=== PATIENT | female | born 1965 | race Caucasian/White ===

== ENCOUNTER 2024-07-05 03:55 | Emergency (ER) | payer OTHER ==
--- OUTSIDE RECORDS SUMMARY | 2024-07-05 04:18 | XMS REPORT | Continuity of Care Document ---
Author Name Unknown Address [address] [facility] [place] [address] [facility] Address [address] [facility] [place] [address] Care Team Providers Care Digital Account Supervisor Name Role Phone JUSTINA MELENDEZ Primary Care Physician Di Lorenzana Anavella Attending Cli nician Unavailable [id number] Attending Clinician Unavailable RAFAEL MORALES Attending Clinician Unavailable RAFAEL MORALES Attending Clinician Unavailable AN LATHAM JR Attending Clinician Unavaila DENISE Li Attending Clinician Unavailable DENISE DUKE Attending Clinician Unavailable JESS DOAN Attending Clinician Unavailable JEFF BERNARD Attending Clinician Unavail able JEFF BERNARD Attending Clinician Unavail able JUSTINA MELENDEZ Attending Clinician Unavailab le NORA, OGECHUKWU Attending Clinician Unavailab sandra Veras [facility], [place] Attending Clinician Henry Doan MD, Jess Attending Clinician [phone] Nora BARRIOS, Justina Attending Clinician [phone] GRIFFIN GUEVARA Attending Clinician Unavaila MEHRDAD Avalos Attending Clinician Unavailable Champ LORD, Donald Rivera Attending Clinician Henry Burks MD, Parker Attending Clinician [phone] Kunal Howe MD Attending Clinician [phone] Doctor Unassigned, [place] Attending Clinician U denis Bond MD, Aldo Esqueda Attending Clinician U Dina Tolliver Attending Clinician Unavailab Rafat Houston Attending Clinician Unavailabl janice Jamil PhD, Ev Attending Clinician [phone] EV JAMIL Attending Clinician Unavailable EV JAMIL Attending Clinician Unavailable Unknown, Attending Attending Clinician Unavailab le Lab, Ang - Db Attending Clinician Unavailable Cortez LORD, Mika Attending Clinician [phone] Sharonda Ashley Attending Clinician [phone], Adc Pob Amb Infusion Room Attending Clinician Unavailable Jeff Bernard MD Attending Clinician [phone] [facility], Angelika Swain Attending Clinician Unavail able Jimenez LORD, Rafi Jose Attending Clinician [phone] Nilo LORD, Amena K N Attending Clinician [phone] 2, Adc Lab Attending Clinician Unavailable Omra Weiss MD Attending Clinician [phone] OMAR WEISS Attending Clinician Unavailable OMAR WEISS Attending Clinician Unavailable GRUPO CROUCH Attending Clinician Unavaila Grupo Rosales MD Attending Clinician [phone] Floyd Palacios MD Attending Clinician + [phone] Transplant, Kidney Medicine Attending Clinician Unavailable BRIGITTE MONZON Attending Clinician Unavailable BRIGITTE MONZON Attending Clinician Unavailable Brigitte Monzon MD Attending Clinician Amelia DONIS, Lucina Eldridge Attending Clinician Unavail able MOHIT CHERRY Attending Clinician Unavailable MOHIT CHERRY Attending Clinician Unavailable Mohit Cherry MD Attending Clinician [phone] Nicolas LORD, Sendil K.H. Attending Clinician [phone] Debbi LORD, Marshall Attending Clinician [phone] Denise Duke MD Attending Clinician [phone] Doctor Unassigned, [place] Attending Clinician U navailable 2, Adc Lab Attending Clinician Unavailable Amena Marte MD Attending Clinician +[phone] AMENA MARTE Attending Clinician Unava ilable Constance Washington Attending Clinician [phone] CARMELA VO Attending Clinician Unavailable Carmela Orellana Attending Clinician [phone] Nicolas LORD, Sendil K.H. Attending Clinician +[phone] Marshall Werner MD Attending Clinician [phone] Jess Doan MD Attending Clinician [phone] Milo DONIS, Marta Attending Clinician UnavailMireya BONNERW, Bobbi Salinas Attending Clinician [phone] Vtc-Lab Attending Clinician Unavailable Rafi Gaona MD Attending Clinician [phone] Grupo Crouch MD Attending Clinician [phone] Pob, Adc Lab Main Attending Clinician Unavailandrew Adams LCSW, Kelsey Attending Clinician +[phone] ITA CAI Attending Clinician Unavailable ITA CAI Attending Clinician Unavailable MARSHALL WERNER Attending Clinician Unavailab sandra Bryan [facility], Angelika A Attending Clinician Unavail able MEL VIZCARRA Attending Clinician Unavailable MEL VIZCARRA Attending Clinician Unavailable Jeyson LORD, Rafi Swain Attending Clinician [phone] Petar Collins MD Attending Clinician [phone] Pradip BENDER, Jack Attending Clinician [phone] Mehrdad Duke Attending Clinician [phone] Pieter Law MD Attending Clinician [phone] KRISTIN GRIGGS Attending Clinician Unavailable MICHELLE MCDERMOTT Attending Clinician Unavailable GRUPO JOHNS Attending Clinician Unavailabl e Lab, Ang - Db Attending Clinician Unavailable KRISTYN PULIDO Attending Clinician Unavailable KRISTYN PULIDO Attending Clinician Unavailable Ita Cai DO Attending Clinician [phone] Grupo Johns MD Attending Clinician [phone] Toney DONIS, Alena Blas Attending Clinician Bobbi Lama RN Attending Clinician Unavaila DEMI Paredes Attending Clinician Unavailable Sapphire Sepulveda MD Attending Clinician [phone] Demi Ruelas MD Attending Clinician [phone] MARIOLA CORRAL Attending Clinician Unavailable Piero BENDER, Michelle Salinas Attending Clinician +[phone] [facility], [facility] Sleep Lab Attending Clinician UnavailAlexandre Burns MD Attending Clinician + [phone] ALEXANDRE KELLY Attending Clinician UnavailALEXANDRE Burns Attending Clinician Unavailwiliam harden Therapist, [facility] Respiratory Attending Clinician U Teresita Ramos MD Attending Clinician + [phone] TERESITA WHITTINGTON Attending Clinician UnavailCANDY Forbes Attending Clinician Candy Alarcon MD Attending Clinician + EV JORGENSEN Attending Clinician Unavailable Diann Kendall MD Attending Clinician +[phone] PIETER LAW Attending Clinician DIANN Cooper Attending Clinician Unavailable , [facility] Infusion Chair Attending Clinician Henry PERRY, Fortunato Ace Attending Clinician [phone] JORI STEWART Attending Clinician Unavailwiliam Bernard MD, Jeff Mackenzie Attending Clinician +[phone] Jori Stewart MD Attending Clinician +[phone] AUTUMN HAMMER Attending Clinician Unavailable Mary SURVEYING TEACHER, Autumn Attending Clinician +[phone] [place] Attending Clinician Unavail able RAFI GAONA Attending Clinician Unavailab le Therapy, Clc Covid Infusion Attending Clinician Unavailable Dusty Mantilla MD Attending Clinician + [phone] Only, Adc Test Attending Clinician Unavailable Camila LORD, Amaya Attending Clinician +[phone] AMAYA JENSEN Attending Clinician UnavailDEVAUGHN Welch Attending Clinician UnavailSAPPHIRE Christie Attending Clinician Unavailable SUE CAMPA Attending Clinician Unavailandrew Campa SURVEYING TEACHER, Sue Attending Clinician [phone] Unknown, Attending Attending Clinician UnavailEsther Camara Attending Clinician +[phone] ESTHER MARTINO Attending Clinician Unavailable Constance TELLEZ Attending Clinician Unavailable Adam Fuller MD Attending Clinician [phone] ADAM FULLER Attending Clinician UnavailFORTUNATO Yin Attending Clinician Unavaila whitley Nurse, Adc Pob Immunization Attending Clinician Unavailable Denny Charles DO Attending Clinician +[phone] DENNY CHARLES Attending Clinician Unavail LISA Monsalve Attending Clinician Unavailable Rafael Morales MD Attending Clinician +[phone] Yeison Garcia MD, An Attending Clinician + [phone] , Adc Echo Room 1 - Attending Clinician ROHIT Noland Attending Clinician Unavailable Lynette Hoang Attending Clinician + Wilfrido Angulo MD Attending Clinician [phone] JACKIE CHAN Attending Clinician Unavailable Nic Serrano Attending Clinician [phone] Cristofer DONIS, Patrick Swain Attending Clinician Unavail able JACKIE CHAMBERS Attending Clinician Unavailable Pieter Otero MD Attending Clinician +[phone] NIC HO Attending Clinician Unavailandrew melvin , Adc Vascular Room 1 - Attending Clinician Un available Provider, Clc Cardiac Attending Clinician Unavai lable 2, Clc Cardiac Proc Room Attending Clinician Brianna vailable 1, Adc Lab Attending Clinician Unavailable Rohit Marin MD Attending Clinician [phone] Matt Flores MD Attending Clinician +[phone] MATT FLORES Attending Clinician UnavailISAAC Quintana Attending Clinician Unava tiarra Thompson MD PHD, Isaac Downs Attending Clinicia n Jackie Chan MD Attending Clinician [phone] Jm Dowell MD Attending Clinician Unavail able Cam LORD, Kendall Leigh Attending Clinician [phone] Keila Zelaya MD Attending Clinician [phone] Broderick Reynolds DO Attending Clinician +[phone] Kaitlin Jefferson MD Attending Clinician [phone] Devaughn Xie Attending Clinician +[phone] Salvador Avendaño Anav Admitting Clinician U navailable [id number] Admitting Clinician Unavailable RAFAEL MORALES Admitting Clinician Unavailable AN LATHAM JR Admitting Clinician Unavaila JEFF Graham Admitting Clinician Unavail able MOHIT CHERRY Admitting Clinician Unavailable RAFI BENÍTEZ Admitting Clinician Unavailable Rafi Benítez MD Admitting Clinician +[phone] SAPPHIRE SEPULVEDA Admitting Clinician Unavailable Sapphire Sepulveda MD Admitting Clinician [phone] JESS DOAN Admitting Clinician Unavailable ITA CAI Admitting Clinician Unavailable DIANN KENDALL Admitting Clinician Unavailable AUTUMN HAMMER Admitting Clinician Unavailable Constance TELLEZ Admitting Clinician Unavailable Rafael Morales MD Admitting Clinician [phone] An Latham MD Admitting Clinician Broderick Reynolds DO Admitting Clinician Payers Payer Name Policy Type Policy Number Effective Date Expirati on Date Source MEDICARE PART A \\T\\ B [id number] 1988 00:00:00 MCR MCR [id number] [employer] MEDICARE ADVANTAGE HMO/POS [id number] 2024 00:00:00 JULIOCESAR FERNANDEZ PLS O [id number] 2023 00:00:00 2024 00:00:00 Problems Condition Name Condition Details Condition Category Status Onset Date Resolution Date Last Treatment Date Treating Clinician Comments Source 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 of angina pectoris Disease Active 2022-03 00:00: 00 [facility] Chronic heart failure with preserved ejection fraction Chronic heart failure with preserved ejection fraction Disease Active 2022-03 00:00: 00 [facility] Dyslipidem ia Dyslipidem ia Disease Active 2022-03 00:00: 00 [facility] BERE (obstructi ve sleep apnea) BERE (obstructi ve sleep apnea) Disease Active 2022-03 00:00: 00 [facility] FERNANDEZ (dyspnea on exertion) FERNANDEZ (dyspnea on exertion) Disease Active 2022-03 00:00: 00 [facility] Anginal equivalent Anginal equivalent Disease Active 2022-03 00:00: 00 [facility] Chest pain, unspecifie d type Chest pain, unspecifie d type Disease Active 2022-03 00:00: 00 [facility] Elevated brain natriureti c peptide (BNP) level Elevated brain natriureti c peptide (BNP) level Disease Active 2022-03 00:00: 00 [facility] Elevated brain natriureti c peptide (BNP) level Elevated brain natriureti c peptide (BNP) level Disease Active 2022-03 00:00: 00 [facility] Goiter Goiter Disease Active 2022-03 0-05 00:00: 00 [facility] Hyperglyce alexa Hyperglyce alexa Disease Active 08-08 00:00: 00 [facility] Adrenal insufficie ncy Adrenal insufficie ncy Disease Active 2020-03 00:00: 00 [facility] Osteoporos is of femur without pathologic al fracture Osteoporos is of femur without pathologic al fracture Disease Active 2020-03 00:00: 00 [facility] Acquired hypothyroi dism Acquired hypothyroi dism Disease Active 2020-03 00:00: 00 [facility] Chronic GERD Chronic GERD Disease Active 08-22 00:00: 00 Overview: Formattin g of this note might be different from the original. Added automatic ally from request for surgery [id number] [facility] Dysphagia, pharyngoes ophageal phase Dysphagia, pharyngoes ophageal phase Disease Active 08-22 00:00: 00 Overview: Formattin g of this note might be different from the original. 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 Added automatic ally from request for surgery [id number] [facility] Coronary artery disease involving alutiiq coronary artery of alutiiq heart without angina pectoris Coronary artery disease involving alutiiq coronary artery of alutiiq heart without angina pectoris Disease Active 2019-03 00:00: 00 Overview: Formattin g of this note might be different from the original. Added automatic ally from request for surgery [id number] [facility] Obesity (BMI 30-39.9) Obesity (BMI 30-39.9) Disease Active 04-28 00:00: 00 [facility] Abnormal colonoscop y Abnormal colonoscop y Disease Active 12-14 00:00: 00 Overview: Formattin g of this note might be different from the original. Added automatic ally from request for surgery [id number] [facility] Edema of colon Edema of colon Disease Active 12-14 00:00: 00 Overview: Formattin g of this note might be different from the original. Added automatic ally from request for surgery [id number] [facility] Colon cancer screening Colon cancer screening Disease Active 09-24 00:00: 00 Overview: Formattin g of this note might be different from the original. Added automatic ally from request for surgery [id number] [facility] Primary osteoarthr itis of both hands Primary osteoarthr itis of both hands Disease Active 08-17 00:00: 00 [facility] Trigger middle finger, unspecifie d laterality Trigger middle finger, unspecifie d laterality Disease Active 08-17 00:00: 00 [facility] Pain in finger of both hands Pain in finger of both hands Disease Active 08-17 00:00: 00 [facility] in both hands Pain in both hands Disease Active 08-17 00:00: 00 [facility] 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 Disease Active 07-31 00:00: 00 [facility] Immunosupp ressed status Immunosupp ressed status Disease Active 07-31 00:00: 00 [facility] Hot flashes, menopausal Hot flashes, menopausal Disease Active 2016-03 0-13 00:00: 00 [facility] Postmenopa usal Postmenopa usal Disease Active 11-14 00:00: 00 [facility] Mixed incontinen ce Mixed incontinen ce Disease Active 11-14 00:00: 00 [facility] Vaginal atrophy Vaginal atrophy Disease Active 11-14 00:00: 00 [facility] Immunosupp ressive management encounter following kidney transplant Immunosupp ressive management encounter following kidney transplant Disease Active 08-23 00:00: 00 [facility] Stiffness of finger joint, right Stiffness of finger joint, right Disease Active 10-18 00:00: 00 [facility] Pain in thumb joint with movement, right Pain in thumb joint with movement, right Disease Active 10-18 00:00: 00 [facility] Localized osteoarthr itis of hand Localized osteoarthr itis of hand Disease Active 10-18 00:00: 00 Overview: Formattin g of this note might be different from the original. ICD10 Diagnosis Term [employer] [facility] Edema of hand Edema of hand Disease Active 10-18 00:00: 00 [facility] Impaired activities of daily living Impaired activities of daily living Disease Active 09-22 00:00: 00 [facility] Pain of hand, unspecifie d laterality Pain of hand, unspecifie d laterality Disease Active 09-22 00:00: 00 [facility] H/O type 1 diabetes mellitus H/O type 1 diabetes mellitus Disease Active 112 00:00: 00 [facility] Trigger finger Trigger finger Disease Active 2013-03 0-03 00:00: 00 [facility] Pain in joint, multiple sites Pain in joint, multiple sites Disease Active 2013-03 0 00:00: 00 [facility] Osteoarthr itis, hand Osteoarthr itis, hand Disease Active 2013-03 0 00:00: 00 [facility] Trigger finger Trigger finger Disease Active 2013-03 0 00:00: 00 [facility] Post-menop ausal bleeding Post-menop ausal bleeding Disease Active 11-11 00:00: 00 [facility] 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 Disease Active 11-03 00:00: 00 [facility] Personal history of other diseases of digestive system Personal history of other diseases of digestive system Disease Active 11-03 00:00: 00 [facility] Need for prophylact ic immunother apy Need for prophylact ic immunother apy Disease Active 07-08 00:00: 00 [facility] Encounter for long-term (current) use of other medication s Encounter for long-term (current) use of other medication s Disease Active 07-08 00:00: 00 [facility] Keloid scar Keloid scar Disease Active 2011-03 2 00:00: 00 [facility] Kidney Replaced by Transplant (#3) UNOS [id number] Kidney Replaced by Transplant (#3) UNOS [id number] Disease Recurre nce 11-30 00:00: 00 [facility] Malignant neoplasm of skin of trunk Malignant neoplasm of skin of trunk Disease Active 11-02 00:00: 00 Overview: Formattin g of this note might be different from the original. Right eye lid, back, left hand, 7ICD10 Diagnosis Term [employer] [facility] Hyperparat hyroidism Hyperparat hyroidism Disease Active 11-02 00:00: 00 Overview: Formattin g of this note might be different from the original. 5ICD10 Diagnosis Term Vp [employer] [facility] Irritable bowel syndrome Irritable bowel syndrome Disease Active 11-02 00:00: 00 Overview: Formattin g of this note might be different from the original. 6 [facility] Essential hypertensi on Essential hypertensi on Disease Active 07-23 00:00: 00 Overview: Formattin g of this note might be different from the original. 6ICD10 Diagnosis Term Vp [employer] Utility [facility] Pure hyperchole sterolemia Pure hyperchole sterolemia Disease [facility] 07-11 00:00: 00 [facility] Pancreas replaced by transplant Pancreas replaced by transplant Disease Active 04-29 00:00: 00 [facility] HLD (hyperlipi demia) HLD (hyperlipi demia) Disease [facility] 04-10 00:00: 00 Overview: Formattin g of this note might be different from the original. Type 2 ICD10 Diagnosis Term Vp [employer] Utility [facility] Hepatitis C carrier Hepatitis C carrier Disease [facility] 1997-03 00:00: 00 Overview: Formattin g of this note might be different from the original. 8 first diagnosed 10/16/04 - bx CAH Gd1 stage1 [facility] Herpetic vulvovagin itis Herpetic vulvovagin itis Disease [facility] 10-17 00:00: 00 Overview: Formattin g of this note might be different from the original. 9, 9 [facility] Type 1 diabetes mellitus Type 1 diabetes mellitus Disease [facility] 1967-03 00:00: 00 Overview: Formattin g of this note might be different from the original. 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 CD10 Diagnosis Term [employer] [facility] Urinary tract infection, site not specified Urinary tract infection, site not specified Disease Resolve d 07-05 00:00: 00 2012-01-11 00:00:00 2021-10-13 00:11:27 [facility] VENTRAL HERNIA VENTRAL HERNIA Disease Resolve d - 00:00: 00 2012-01-11 00:00:00 2012-01-11 22:18:43 [facility] Incisional hernia Incisional hernia Disease Resolve d 15 00:00: 00 2012-01-11 00:00:00 2021-10-13 00:17:12 [facility] Lymphatic Channel Disorder, (LYMPHOCOE LE) Lymphatic Channel Disorder, (LYMPHOCOE LE) Disease Resolve d 12-18 00:00: 00 2012-01-11 00:00:00 2012-01-11 22:18:52 [facility] Lymphatic Channel Disorder, (LYMPHOCOE LE) Lymphatic Channel Disorder, (LYMPHOCOE LE) Disease Resolve d 12-18 00:00: 00 2012-01-11 00:00:00 2012-01-11 22:18:52 [facility] Methicilli n susceptibl e Staphyloco ccus aureus infection Methicilli n susceptibl e Staphyloco ccus aureus infection Disease Resolve d 11-02 00:00: 00 2012-01-11 00:00:00 2014-12-29 17:32:23 [facility] Mechanical complicati on due to other tissue graft, not elsewhere classified Mechanical complicati on due to other tissue graft, not elsewhere classified Disease Resolve d 11-02 00:00: 00 2012-01-11 00:00:00 2012-01-11 22:20:41 [facility] Other and unspecifie d diseases of upper respirator y tract Other and unspecifie d diseases of upper respirator y tract Disease Resolve d 11-02 00:00: 00 2012-01-11 00:00:00 2012-01-11 22:19:27 [facility] Hypoglycem ia Hypoglycem ia Disease Resolve d 11-02 00:00: 00 2012-01-11 00:00:00 2014-12-29 17:32:23 [facility] Streptococ cus infection Streptococ cus infection Disease Resolve d 11-02 00:00: 00 2012-01-11 00:00:00 2014-12-29 17:32:23 [facility] Candidiasi s of mouth Candidiasi s of mouth Disease Resolve d 11-02 00:00: 00 2012-01-11 00:00:00 2012-01-11 22:19:08 [facility] Other malaise and fatigue Other malaise and fatigue Disease Resolve d 11-02 00:00: 00 2012-01-11 00:00:00 2012-01-11 22:19:04 [facility] Pseudomona s infection in conditions classified elsewhere and of unspecifie d site Pseudomona s infection in conditions classified elsewhere and of unspecifie d site Disease Resolve d 11-02 00:00: 00 2012-01-11 00:00:00 2012-01-11 22:18:56 [facility] Mechanical complicati on due to other tissue graft, not elsewhere classified Mechanical complicati on due to other tissue graft, not elsewhere classified Disease Resolve d 11-02 00:00: 00 2012-01-11 00:00:00 2012-01-11 22:20:41 [facility] ESRD on dialysis ESRD on dialysis Disease Resolve d 10-17 00:00: 00 2012-01-11 00:00:00 2021-10-13 00:18:46 [facility] Alopecia Alopecia Disease Resolve d 2003-03 0-04 00:00: 00 2012-01-11 00:00:00 2021-10-13 00:11:27 [facility] Unspecifie d hypertensi ve kidney disease with chronic kidney disease stage I through stage IV, or unspecifie d(403.90) Unspecifie d hypertensi ve kidney disease with chronic kidney disease stage I through stage IV, or unspecifie d(403.90) Disease Resolve d 1995-0 409 00:00: 00 2012-01-11 00:00:00 2012-01-11 22:19:55 [facility] Hematuria Hematuria Disease Resolve d 0 14 00:00: 00 2012-01-11 00:00:00 2014-12-29 17:32:23 [facility] Hepatitis in viral disease Hepatitis in viral disease Disease Resolve d 11-02 00:00: 00 2010-08-08 00:00:00 2014-12-29 17:32:23 [facility] Abdominal hernia Abdominal hernia Disease Resolve d 08-01 00:00: 00 2009-11-02 00:00:00 2021-10-13 00:10:31 [facility] Anemia in chronic renal disease Anemia in chronic renal disease Disease Resolve d 2006-03 00:00: 00 2007-04-10 00:00:00 2021-10-13 00:12:37 [facility] BACTEREMIA - staph aureus BACTEREMIA - staph aureus Disease Resolve d 10-05 00:00: 00 2006-10-15 00:00:00 2010-08-08 11:20:06 [facility] Fever and other physiologi c disturbanc es of temperatur e regulation Fever and other physiologi c disturbanc es of temperatur e regulation Disease Resolve d 10-05 00:00: 00 2006-10-06 00:00:00 2014-12-29 17:08:28 [facility] Kidney replaced by transplant Kidney replaced by transplant Disease Resolve d 1991-0 1-28 00:00: 00 2005-10-17 00:00:00 2006-10-08 09:54:25 [facility] Cellulitis and abscess Cellulitis and abscess Disease Resolve d 08-04 00:00: 00 2005-09-04 00:00:00 2021-10-13 00:08:32 [facility] Dehydratio n Dehydratio n Disease Resolve d 08-04 00:00: 00 2005-08-10 00:00:00 2010-08-08 11:35:17 [facility] Incisional hernia Incisional hernia Disease Resolve d - 00:00: 00 2005-07-25 00:00:00 2014-12-29 17:05:06 [facility] Diarrhea Diarrhea Disease Resolve d - 00:00: 00 2003-08-27 00:00:00 2010-08-08 11:38:11 [facility] Nonspecifi c (abnormal) findings on radiologic al and other examinatio n of gastrointe stinal tract Nonspecifi c (abnormal) findings on radiologic al and other examinatio n of gastrointe stinal tract Disease Resolve d 2003-0 2-09 00:00: 00 2003-05-29 00:00:00 2010-01-31 10:13:08 [facility] Cyclospori n nephrotoxi city Cyclospori n nephrotoxi city Disease Resolve d 0 - 00:00: 00 2003-03-24 00:00:00 2010-08-08 11:34:18 [facility] Enteritis due to adenovirus Enteritis due to adenovirus Disease Resolve d 0 6-14 00:00: 00 2000-06-28 00:00:00 2010-01-31 10:18:26 [facility] Pure hyperglyce ridemia Pure hyperglyce ridemia Disease Resolve d 0 1- 00:00: 00 2000-05-28 00:00:00 2010-01-31 10:05:42 [facility] Edema Edema Disease Resolve d 0 1- 00:00: 00 1999-05-21 00:00:00 2010-08-08 11:39:59 [facility] Pancreas replaced by transplant Pancreas replaced by transplant Disease Resolve d 1988-0 6-20 00:00: 00 1999-04-02 00:00:00 2005-07-29 02:51:38 [facility] End stage renal disease End stage renal disease Disease Resolve d 1990-03 0- 00:00: 00 1991-04-26 00:00:00 2021-10-13 00:11:17 [facility] Kidney replaced by transplant Kidney replaced by transplant Disease Resolve d 1988-0 6-20 00:00: 00 1990-12-28 00:00:00 2006-10-08 09:54:25 [facility] Cholecysti tis Cholecysti tis Disease Resolve d 3-02 00:00: 00 1990-06-10 00:00:00 2021-10-13 00:11:27 [facility] Calculus of gallbladde r Calculus of gallbladde r Disease Resolve d 0 8-13 00:00: 00 1990-06-10 00:00:00 2021-10-13 00:11:27 [facility] Chronic pancreatit is Chronic pancreatit is Disease Resolve d 11-28 00:00: 00 1989-03-28 00:00:00 2010-01-31 10:00:57 [facility] Allergies, Adverse Reactions, Alerts Allergy Name Allergy Type Status Severity Reaction(s) Onset Date Inactive Date Treating Clinician Comments Source ADHESIVE TAPE DRUG Active Rash 04-05 00:00: 00 [facility] Adhesive Tape Propensi ty to adverse reaction s Active Rash 04-05 00:00: 00 [facility] Iodine And Iodide Containi ng Products Propensi ty to adverse reaction s Active Hives 2006-03 00:00: 00 [facility] IODINE AND IODIDE CONTAINI NG PRODUCTS Drug Class Active Hives 2006-03 00:00: 00 [facility] MORPHINE DRUG INGREDI Active SOB 05-28 00:00: 00 [facility] Morphine Propensi ty to adverse reaction s Active Swelling 05-28 00:00: 00 [facility] morphine morphine Active Memoria l Basil Adhesive Tape Adhesive Tape Active Memoria brad Gracia Family History Family Member Diagnosis Comments Start Date Stop Date Sourc e Natural father Diabetes [facility] Hy[facility] father Stroke [facility] Maternal grandfather Diabetes [facility] Maternal grandfather Hypertension [facility] Maternal grandfather Stroke [facility] Maternal grandmother Diabetes [facility] Maternal grandmother Hypertension [facility] Maternal uncle Diabetes [facility] Natural [facility] Hy[facility] Natural mother Other - see comments [facility] Paternal grandfather Hypertension [facility] Paternal grandmother Diabetes [facility] Paternal grandmother Hypertension [facility] Social History Social Habit Start Date Stop Date Quantity Comments Source History SDOH Alcohol Std Drinks [facility] History SDOH Alcohol Binge [facility] History SDOH Social Connections Get Together [facility] History SDOH Social Connections [facility] History SDOH Social Connections Membership [facility] History SDMN Social Connections Meetings [facility] Gender identity [facility] Sexual orientation [facility] Alcoholic beverage intake 2024-05-03 00:00:00 2024-05-03 00:00:00 0 /d [facility] History of Social function 2024-03-09 00:00:00 2024-03-09 00:00:00 [facility] Alcohol intake 2023-06-25 00:00:00 2023-06-25 00:00:00 0 /d [facility] Exposure to SARS-CoV-2 (event) 2022-08-11 00:00:00 2022-08-21 09:54:00 Not sure [facility] History SDOH Financial 2022-08-08 00:00:00 2022-08-08 00:00:00 5 [facility] History SDOH Food Worry 2022-08-08 00:00:00 2022-08-08 00:00:00 1 [facility] History SDOH Food Scarcity 2022-08-08 00:00:00 2022-08-08 00:00:00 1 [facility] History SDOH Transport Med 2022-08-08 00:00:00 2022-08-08 00:00:00 2 [facility] History SDOH Transport Non-Med 2022-08-08 00:00:00 2022-08-08 00:00:00 2 [facility] History SDOH Alcohol Frequency 2022-08-08 00:00:00 2022-08-08 00:00:00 1 [facility] History SDOH Social Connections Phone 2022-08-08 00:00:00 2022-08-08 00:00:00 5 [facility] History SDOH Social Connections Living 2022-08-08 00:00:00 2022-08-08 00:00:00 3 [facility] History SDOH Housing Unable to Pay 2022-08-08 00:00:00 2022-08-08 00:00:00 2 [facility] History SDOH Housing Places Lived 2022-08-08 00:00:00 2022-08-08 00:00:00 1 [facility] History SDOH Housing Homeless Last Year 2022-08-08 00:00:00 2022-08-08 00:00:00 2 [facility] Tobacco use and exposure 2021-12-24 00:00:00 2021-12-24 00:00:00 Smokeless tobacco non-user [facility] Sex assigned at 1965 00:00:00 1965 00:00:00 [facility] Smoking Status Start Date Stop Date Source Never smoked tobacco [facility] Medications Ordered Medication Name Filled Medication Name Start Date Stop Date Current Medication? Ordering Clinician Indication Dosage Frequency Signature (SIG) Comments Components Source insulin glargine U-300 conc (TOUJEO SOLOSTAR U-300 INSULIN) 300 unit/mL (1.5 mL) InPn 06-27 00:00: 00 Yes [id number] INJECT 20 UNITS UNDER THE SKIN ONCE A DAY IN THE MORNING. [facility] enalapril 2.5 mg tablet 04-07 00:00: 00 Yes [id number] 2.5mg Take 1 tablet by mouth in the morning. 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 [facility] Blood-Gluco se Sensor (FREESTYLE KARLA 3 PLUS SENSOR) Debbie 2023-03 00:00: 00 Yes Use as directed; Change Q15D [facility] Lancets (ACCU-CHEK SOFTCLIX LANCETS) Misc 2023-03 00:00: 00 Yes [id number] Use as directed 3 times a day TID E10.65 [facility] insulin aspart U-100 (NOVOLOG FLEXPEN U-100 INSULIN) 100 unit/mL (3 mL) injection 2023-03 00:00: 00 Yes [id number] 11U inject 11 Units under the skin in the morning and 11 Units at noon and 11 Units in the evening. inject before meals. [facility] insulin glargine U-300 conc (TOUJEO SOLOSTAR U-300 INSULIN) 300 unit/mL (1.5 mL) InPn 2023-03 00:00: 00 06-27 00:00 :00 No [id number] 33U inject 33 Units under the skin in the morning. [facility] mycophenola te 250 mg capsule 2023-03 00:00: 00 Yes [id number] 250mg Take 1 capsule by mouth every 12 (twelve) hours. [facility] tacrolimus 0.5 mg capsule 2023-03 00:00: 00 Yes [id number] Take 2 capsules by mouth every morning AND 1 capsule every evening. z94.0 [facility] doxepin 25 mg capsule 2023-03 0 00:00: 00 Yes [id number] 25mg Take 1 capsule by mouth at bedtime. [facility] ACCU-CHEK GUIDE GLUCOSE METER [facility] [place] 12-17 00:00: 00 Yes [id number] Use as directed 3 times a day TID E10.65 [facility] ACCU-CHEK GUIDE TEST STRIPS strip 12-17 00:00: 00 Yes [id number] Use as directed 3 times a day TID E10.65 [facility] ACCU-CHEK SOFTCLIX LANCETS [facility] [place] 12-17 00:00: 00 02-02 00:00 :00 No [id number] Use as directed 3 times a day TID E10.65 [facility] Blood-Gluco se Meter,Lelo numelchor (FREESTYLE KARLA 3 READER) [facility] [place] 12-15 00:00: 00 Yes Use as directed [facility] Blood-Gluco se Sensor (FREESTYLE KARLA 3 SENSOR) Debbie 12-15 00:00: 00 02-09 00:00 :00 No [id number] Use as directed every 2 weeks [facility] insulin glargine U-300 conc (TOUJEO SOLOSTAR U-300 INSULIN) 300 unit/mL (1.5 mL) InPn 12-15 00:00: 00 02-02 00:00 :00 No [id number] 33U inject 33 Units under the skin in the morning. E10.65 [facility] insulin aspart U-100 (NOVOLOG FLEXPEN U-100 INSULIN) 100 unit/mL (3 mL) injection 12-15 00:00: 00 02-02 00:00 :00 No [id number] 11U inject 11 Units under the skin in the morning and 11 Units at noon and 11 Units in the evening. inject before meals. PLUS sliding scale (max 48 units daily) [facility] SERTraline 100 mg tablet 12-14 00:00: 00 Yes [id number] 200mg Take 2 tablets by mouth in the morning. [facility] traZODone 50 mg tablet 12-14 00:00: 00 Yes [id number] 50mg Take 1 tablet by mouth at bedtime. [facility] ONETOUCH VERIO TEST STRIPS strip 12-14 00:00: 00 12-17 00:00 :00 No [id number] Use as directed 3 times a day E10.65 [facility] Blood-Gluco se Meter (ONETOUCH VERIO FLEX METER) [facility] [place] 12-14 00:00: 00 12-17 00:00 :00 No [id number] Use as directed 3 times a day E10.65 [facility] lancets (ONETOUCH DELICA PLUS LANCET) 33 gauge [facility] [place] 12-14 00:00: 00 12-17 00:00 :00 No [id number] Use as directed 3 times a day E10.65 [facility] acyclovir 200 mg capsule 12-09 00:00: 00 03-02 00:00 :00 No [id number] TAKE TWO (2) CAPSULE(S) BY MOUTH IN THE MORNING AND 2 CAPSULES IN THE EVENING. [facility] atorvastati n 80 mg tablet 12-08 00:00: 00 Yes [id number] 80mg TAKE ONE (1) TABLET(S) BY MOUTH AT BEDTIME. [facility] atorvastati n 80 mg tablet 12-01 00:00: 00 12-08 00:00 :00 No [id number] 80mg Take 1 tablet by mouth at bedtime. [facility] NaCl 0.9% (NS) bolus infusion 500 mL 11-23 02:00: 00 11-23 03:29 :00 No 500mL at 999 mL/hr, 500 mL, IV Infusion, ONCE, 1 dose, On Thu11/23/23 at 2100, STAT [facility] insulin glargine U-300 conc (TOUJEO SOLOSTAR U-300 INSULIN) 300 unit/mL (1.5 mL) InPn 11-23 00:00: 00 12-15 00:00 :00 No [id number] 20U inject 20 Units under the skin in the morning. E10.65 [facility] atorvastati n 80 mg tablet 11-18 00:00: 00 12-01 00:00 :00 No [id number] 80mg Take 1 tablet by mouth at bedtime. [facility] SYNTHROID 50 mcg tablet 11-16 00:00: 00 Yes [id number] TAKE ONE (1) TABLET BY MOUTH EVERY MORNING. Brand name [facility] hydrocortis one 10 mg tablet 11-16 00:00: 00 Yes [id number] TAKE TWO (2) TABLET(S) BY MOUTH EVERY MORNING AND ONE-HALF (1/2) TABLET(S) AROUND 3PM DAILY. [facility] Insulin [place], Disposable, (NOVOFINE 32) 32 gauge x 1/4" Ndle 11-16 00:00: 00 Yes [id number] Use as directed to inject insulin 4 times a day E10.65 [facility] insulin aspart U-100 (NOVOLOG FLEXPEN U-100 INSULIN) 100 unit/mL (3 mL) injection 11-16 00:00: 00 12-15 00:00 :00 No [id number] 10U inject 10-15 Units under the skin in the morning and 10-15 Units at noon and 10-15 Units in the evening. inject before meals. Via sliding scale up to 40 units a day E10.65 [facility] Blood-Gluco se Sensor (FREESTYLE KARLA 3 SENSOR) Debbie 11-16 00:00: 00 12-15 00:00 :00 No [id number] Use as directed every 2 weeks [facility] insulin glargine U-300 conc (TOUJEO SOLOSTAR U-300 INSULIN) 300 unit/mL (1.5 mL) InPn 11-16 00:00: 00 11-23 00:00 :00 No [id number] 20U inject 20 Units under the skin in the morning. E10.65 [facility] SERTraline 100 mg tablet 11-09 00:00: 00 12-14 00:00 :00 No [id number] 100mg Take 1 tablet by mouth in the morning. [facility] SERTraline 100 mg tablet 11-07 00:00: 00 11-09 00:00 :00 No [id number] 100mg Take 1 tablet by mouth in the morning. [facility] ranolazine 500 mg 12 hr tablet 11-02 00:00: 00 Yes [id number] 500mg Take 1 tablet by mouth in the morning and 1 tablet in the evening. [facility] NaCl 0.9% (NS) bolus infusion 500 mL 09-22 18:30: 00 09-22 18:30 :00 No 500mL at 999 mL/hr, 500 mL, IV Infusion, ONCE, 1 dose, On Thu09/23/23 at 1330, STAT [facility] cefTRIAXone (ROCEPHIN) 1,000 mg in NaCl 0.9% (NS) 100 mL MINI-BAG 09-22 17:30: 00 09-22 18:05 :00 No 1000mg 1,000 mg, IV Piggyback, ONCE, 1 dose, On Thu09/23/23 at 1230, Administer over 30 Minutes, 100 mL, Reason for Anti-Infec tive: Documented Infection, Documented Infection Site: Urine, Duration of Therapy: Once (ED) [facility] cefdinir 300 mg capsule 09-22 00:00: 00 10-01 00:00 :00 No [id number] 300mg Take 1 capsule by mouth every 12 (twelve) hours for 10 days. [facility] acetaminoph en-codeine 300-30 mg tablet 09-08 00:00: 00 Yes [id number] 1{tbl} Take 1 tablet by mouth 2 (two) times daily as needed for Pain (scale 7-10). Indication s: acute pain, left knee pain [facility] escitalopra m oxalate (LEXAPRO) 10 mg tablet 09-08 00:00: 00 11-02 00:00 :00 No [id number] 10mg Take 1 tablet by mouth in the morning. [facility] insulin NPH (NOVOLIN N NPH U-100 INSULIN) 100 unit/mL injection 09-06 00:00: 00 11-16 00:00 :00 No [id number] INJECT 12 UNITS SUBCUTANEO USLY IN THE MORNING AND 10 UNITS IN THE EVENING [facility] insulin NPH (NOVOLIN N NPH U-100 INSULIN) 100 unit/mL injection 08-31 00:00: 00 09-06 00:00 :00 No [id number] INJECT 12 UNITS SUBCUTANEO USLY IN THE MORNING AND 7 UNITS IN THE EVENING [facility] MYCOPHENOLA TE 250 mg capsule - 00:00: 00 01-27 00:00 :00 No [id number] 250mg TAKE 1 CAPSULE BY MOUTH EVERY 12 HOURS. [facility] SERTraline 50 mg tablet 5-07 00:00: 00 09-08 00:00 :00 No [id number] 50mg Take 1 tablet by mouth in the morning. [facility] NOVOLIN N NPH U-100 INSULIN 100 unit/mL injection -04 00:00: 00 08-30 00:00 :00 No [id number] INJECT 12 UNITS SUBCUTANEO USLY IN THE MORNING AND 7 UNITS IN THE EVENING [facility] MULTIVITAMI N ORAL 06-24 10:06: 10 01-12 00:00 :00 No 1{tbl} Take 1 tablet by mouth in the morning. [facility] Flaxseed Oil (FLAXSEED OIL) 1,000 mg Cap 06-24 10:03: 53 06-24 00:00 :00 No [id number] 3000mg Take 3,000 mg by mouth daily. [facility] biotin 1 mg Cap 06-24 10:01: 14 Yes 1{capsu le} Take 1 capsule by mouth daily. [facility] levothyroxi ne (SYNTHROID) 50 mcg tablet 06-15 00:00: 00 11-16 00:00 :00 No [id number] TAKE ONE (1) TABLET BY MOUTH EVERY MORNING. [facility] tacrolimus 0.5 mg capsule 15 00:00: 00 01-27 00:00 :00 No [id number] Take 2 capsules by mouth every morning AND 1 capsule every evening. z94.0 [facility] pantoprazol e 40 mg EC tablet - 00:00: 00 Yes [id number] 40mg Take 1 tablet by mouth in the morning. [facility] atorvastati n 80 mg tablet 3-11 00:00: 00 11-18 00:00 :00 No [id number] 80mg Take 1 tablet by mouth at bedtime. [facility] insulin aspart RAPID (NOVOLOG U-100 INSULIN ASPART) 100 unit/mL injection -11 00:00: 00 11-16 00:00 :00 No [id number] Inject 8 units daily before breakfast. Inject 12 units daily with dinner. If blood sugar is less than 80 skip insulin. If blood sugar is between 80 and 120 take only half dose of the insulin. DX E11.65 [facility] Insulin NPH Human Recomb (HUMULIN N NPH INSULIN KWIKPEN) 100 unit/mL (3 mL) injection 06-07 00:00: 00 09-06 00:00 :00 No [id number] Inject 19 units at 9am and 5 units at 9pm [facility] metoprolol succinate XL 25 mg 24 hr tablet 04-06 00:00: 00 Yes [id number] 12.5mg Take 0.5 tablets by mouth in the morning. [facility] insulin NPH (HUMULIN N) injection 5 Units 2022-03 00:00: 00 Yes 5U 5 Units, Subcutaneo us, DINNER, First dose on 03/28/23 at 1800, Until Discontinu ed [facility] insulin lispro (human) (HumaLOG U-100) injection 10 Units 2022-03 19:15: 00 03-28 19:09 :00 No 10U 10 Units, Subcutaneo us, ONCE, 1 dose, On 03/28/23 at 1315, JOSE CRUZ [facility] Flaxseed Oil (FLAXSEED OIL) 1,000 mg Cap 2022-03 18:40: 36 Yes [id number] 3000mg Take 3,000 mg by mouth daily. [facility] MULTIVITAMI N ORAL 2022-03 18:40: 36 Yes 1{tbl} Take 1 tablet by mouth in the morning. [facility] biotin 1 mg Cap 2022-03 18:40: 36 Yes 1{capsu le} Take 1 capsule by mouth daily. [facility] pantoprazol e (PROTONIX) EC tablet 40 mg 2022-03 15:00: 00 Yes 40mg 40 mg, Oral, DAILY, First dose on 03/28/23 at 0900, Until Discontinu ed [facility] isosorbide mononitrate (IMDUR) 24 hr tablet 30 mg 2022-03 15:00: 00 Yes 30mg 30 mg, Oral, DAILY, First dose on 03/28/23 at 0900, Until Discontinu ed, Routine [facility] lisinopriL (PRINIVIL,Z ESTRIL) tablet 5 mg 2022-03 15:00: 00 Yes 5mg 5 mg, Oral, DAILY, First dose on 03/28/23 at 0900, Until Discontinu ed [facility] citalopram (CELEXA) tablet 20 mg 2022-03 15:00: 00 Yes 20mg 20 mg, Oral, DAILY, First dose on 03/28/23 at 0900, Until Discontinu ed, Routine [facility] levothyroxi ne (SYNTHROID) tablet 50 mcg 2022-03 12:00: 00 Yes 50ug 50 mcg, Oral, QAM-0600, First dose on 03/28/23 at 0600, Until Discontinu ed, Routine [facility] heparin (porcine) injection 5,000 Units 2022-03 04:00: 00 Yes 5000U 5,000 Units, Subcutaneo us, Q8H, First dose on Thu03/27/23 at 2200, Until Discontinu ed, Routine [facility] Sliding Scale Insulin - Lispro (HumaLOG) 2022-03 03:00: 00 Yes Subcutaneo us, TID MEALS+HS, First dose on Thu03/27/23 at 2100, Until Discontinu ed, Routine [facility] cyclobenzap rine (FLEXERIL) tablet 10 mg 2022-03 03:00: 00 Yes 10mg 10 mg, Oral, QHS, First dose on Thu03/27/23 at 2100, Until Discontinu ed, Routine [facility] atorvastati n (LIPITOR) tablet 80 mg 2022-03 03:00: 00 Yes 80mg 80 mg, Oral, QHS, First dose on Thu03/27/23 at 2100, Until Discontinu ed, Routine [facility] tacrolimus (PROGRAF) capsule 0.5 mg 2022-03 02:00: 00 Yes .5mg 0.5 mg, Oral, BID, First dose on Thu03/27/23 at 1999, Until Discontinu ed, Routine
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 : PETAR COLLINS [facility] mycophenola te (CELLCEPT) capsule 250 mg 2022-03 02:00: 00 Yes 250mg 250 mg, Oral, Q12H, First dose on Thu03/27/23 at 1999, Until Discontinu ed, Routine [facility] hydrocortis one (CORTEF) tablet 20 mg 2022-03 02:00: 00 Yes 20mg 20 mg, Oral, BID, First dose on Thu03/27/23 at 1999, Until Discontinu ed, Routine [facility] budesonide- formoteroL (SYMBICORT) 80-4.5 mcg/actuati on inhaler 2 Puff 2022-03 02:00: 00 Yes 2{puff} 2 Puff, Inhalation , BID, First dose on Thu03/27/23 at 1999, Until Discontinu ed, Routine [facility] acyclovir (ZOVIRAX) capsule 400 mg 2022-03 02:00: 00 Yes 400mg 400 mg, Oral, BID, First dose on Thu03/27/23 at 2000, Until Discontinu ed, JOSE CRUZ [facility] hydralAZINE (APRESOLINE ) injection 10 mg 2022-03 00:36: 39 Yes 10mg 10 mg, Slow IV Push, Q6HPRN, Starting on Thu03/27/23 at 1836, Until Discontinu ed, Routine, SBP > 170 or DBP > 100
Ind ication: Hypertensi ve Emergency [facility] morpHINE (4 mg/mL) injection 4 mg 2022-03 00:36: 38 Yes 4mg 4 mg, Slow IV Push, Q4HPRN, Starting on Thu03/27/23 at 1836, Until Discontinu ed, Routine, Pain (scale 7-10) [facility] HYDROcodone -acetaminop hen (NORCO 5) 5-325 mg tablet 1 tablet 2022-03 00:36: 38 Yes 1{tbl} 1 tablet, Oral, Q6HPRN, Starting on Thu03/27/23 at 1836, Until Discontinu ed, Routine, Pain (scale 4-6) [facility] ondansetron (ZOFRAN (PF)) injection 4 mg 2022-03 00:36: 38 Yes 4mg 4 mg, Slow IV Push, Q6HPRN, Starting on Thu03/27/23 at 1836, Until Discontinu ed, Routine, Nausea and Vomiting (N/V) [facility] glucagon (GLUCAGEN DIAGNOSTIC KIT) injection 1 mg 2022-03 00:35: 56 Yes 1mg 1 mg, Intramuscu lar, PRN, Starting on Thu03/27/23 at 1835, Until Discontinu ed, JOSE CRUZ, Blood Glucose < or = 70 mg/dL and patient is NPO, unable to swallow or has mental changes. [facility] dextrose 50 % in water (D50W) injection 25 mL 2022-03 00:35: 56 Yes 25mL 25 mL, Slow IV Push, PRN, Starting on Thu03/27/23 at 1835, Until Discontinu ed, JOSE CRUZ, Blood Glucose < or = 70 mg/dL and patient is NPO, unable to swallow or has mental status changes. [facility] albuterol (VENTOLIN) inhaler 2 Puff 2022-03 00:33: 01 Yes 2{puff} 2 Puff, Inhalation , Q6HPRN, Starting on Thu03/27/23 at 1833, Until Discontinu ed, Routine, Wheezing, Shortness of Breath [facility] ondansetron (ZOFRAN (PF)) injection 2022-03 22:14: 04 03-27 22:28 :17 No ONCE INTRA PROCEDURE, Starting on Thu03/27/23 at 1614, Until Thu03/27/23 at 1628, Routine, CV Intraproce dure [facility] iopamidol (ISOVUE-370 ) injection 2022-03 22:08: 19 03-27 22:28 :17 No Intravenou s, ONCE INTRA PROCEDURE, Starting on Thu03/27/23 at 1608, Until Thu03/27/23 at 1628, Routine, CV Intraproce dure [facility] lidocaine 1% (PF) (XYLOCAINE) injection 2022-03 21:43: 27 03-27 22:28 :17 No ONCE INTRA PROCEDURE, Starting on Thu03/27/23 at 1543, Until Thu03/27/23 at 1628, Routine, [facility] FENTanyl PF (SUBLIMAZE (PF)) injection 2022-03 21:39: 09 03-27 22:28 :17 No Slow IV Push, ONCE INTRA PROCEDURE, Starting on Thu03/27/23 at 1539, Until Thu03/27/23 at 1628, Routine, CV Intraproce dure [facility] midazolam (VERSED) injection 2022-03 21:39: 02 03-27 22:28 :17 No IV Push, ONCE INTRA PROCEDURE, Starting on Thu03/27/23 at 1539, Until Thu03/27/23 at 1628, Routine, CV Intraproce dure [facility] diphenhydrA MINE (BENADRYL) injection 50 mg 2022-03 20:13: 00 03-27 19:48 :00 No 50mg 50 mg, Intravenou s, ONCE, 1 dose, On Thu03/27/23 at 1415, Routine [facility] ALPRAZolam (XANAX) tablet 0.5 mg 2022-03 20:00: 00 03-27 22:32 :51 No .5mg 0.5 mg, Oral, TID, First dose on Thu03/27/23 at 1400, Until Discontinu ed, Routine [facility] insulin NPH and regular human 70-30 (70-30 U-100 INSULIN) 100 unit/mL (70-30) injection 9 Units 2022-03 15:30: 00 03-27 14:53 :00 No [id number] 9U 9 Units, Subcutaneo us, ONCE, 1 dose, On Thu03/27/23 at 0930, Routine [facility] aspirin chewable tablet 81 mg 2022-03 15:00: 00 03-27 14:22 :00 No [id number] 81mg 81 mg, Oral, ONCE, 1 dose, On Thu03/27/23 at 0900, Routine [facility] predniSONE 50 mg tablet 2022-03 00:00: 00 03-28 05:59 :00 No 50mg Take 1 tablet by mouth every 6 (six) hours for 3 doses. Indication s: iodine allergy prophylaxi s [facility] SYNTHROID 50 mcg tablet 2022-03 00:00: 00 06-15 00:00 :00 No [id number] TAKE ONE (1) TABLET BY MOUTH EVERY MORNING. [facility] levothyroxi ne (SYNTHROID) 50 mcg tablet 2022-03 00:00: 00 06-15 00:00 :00 No [id number] TAKE ONE (1) TABLET BY MOUTH EVERY MORNING. [facility] enalapril 2.5 mg tablet 2022-03 00:00: 00 Yes [id number] 2.5mg Take 1 tablet by mouth in the morning. [facility] insulin lispro, human, (HUMALOG U-100 INSULIN) 100 unit/mL injection 2022-03 00:00: 00 06-07 00:00 :00 No inject 10 Units under the skin 2 (two) times daily before breakfast and dinner. If your BG 80 - 120 take half your insulin, if your BG <80 do not take any insulin for diagnosis E11.65. [facility] Blood-Gluco se Sensor (FREESTYLE KARLA 3 SENSOR) Debbie 2022-03 00:00: 00 11-16 00:00 :00 No [id number] Use as directed every 2 weeks [facility] Insulin NPH Human Recomb (HUMULIN N NPH INSULIN KWIKPEN) 100 unit/mL (3 mL) injection 2022-03 2-05 00:00: 00 06-07 00:00 :00 No [id number] Inject 19 units at 9am and 5 units at 9pm [facility] OMEPRAZOLE 40 mg capsule 2022-03 2-04 00:00: 00 06-07 00:00 :00 No [id number] TAKE ONE (1) CAPSULE(S) BY MOUTH EVERY MORNING. [facility] furosemide (LASIX) 20 mg tablet 2022-03 00:00: 00 Yes [id number] 20mg Take 1 tablet by mouth in the morning. Or as needed for swelling. [facility] isosorbide mononitrate 30 mg 24 hr tablet 2022-03 00:00: 00 06-24 00:00 :00 No [id number] 30mg Take 1 tablet by mouth in the morning. [facility] insulin aspart RAPID (NOVOLOG U-100 INSULIN ASPART) 100 unit/mL injection 2022-03 0-25 00:00: 00 06-07 00:00 :00 No Inject 8 units daily before breakfast. Inject 12 units daily with dinner. If blood sugar is less than 80 skip insulin. If blood sugar is between 80 and 120 take only half dose of the insulin. DX E11.65 [facility] Insulin NPH Human Recomb (HUMULIN N NPH INSULIN KWIKPEN) 100 unit/mL (3 mL) injection 2022-03 0-17 00:00: 00 03-03 00:00 :00 No 19U inject 19 Units under the skin every morning. [facility] cyanocobala min (DODEX) injection 2,000 mcg 2022-03 0-11 17:00: 00 01-07 16:22 :00 No [id number] 2000ug [facility] insulin lispro (HUMALOG KWIKPEN INSULIN) 100 unit/mL pen injector 2022-03 011 00:00: 00 Yes [id number] 10U inject 10 Units under the skin 2 (two) times daily before breakfast and dinner. If your BG 80 - 120 take half your insulin, if your BG <80 do not take any insulin for diagnosis E11.65. [facility] proMETHazin e 25 mg tablet 2022-03 00:00: 00 Yes [id number] TAKE ONE (1) TABLET(S) BY MOUTH EVERY SIX HOURS NEEDED FOR NAUSEA AND VOMITING. [facility] cyanocobala min 1,000 mcg/mL injection 2022-03 00:00: 00 Yes [id number] 1000ug inject 1 mL under the skin every 14 (fourteen) days. [facility] Syringe-Nee dle, Safety,Disp Un 3 mL 25 gauge x 5/8" Syrg 2022-03 00:00: 00 Yes [id number] Use as directed [facility] hydrocortis one 10 mg tablet 2022-03 00:00: 00 11-16 00:00 :00 No [id number] TAKE TWO (2) TABLET(S) BY MOUTH EVERY MORNING AND ONE-HALF (1/2) TABLET(S) AROUND 3PM DAILY. [facility] insulin lispro (HUMALOG KWIKPEN INSULIN) 100 unit/mL pen injector 2022-03 00:00: 00 06-07 00:00 :00 No [id number] 10U inject 10 Units under the skin 2 (two) times daily before breakfast and dinner. If your BG 80 - 120 take half your insulin, if your BG <80 do not take any insulin for diagnosis E11.65. [facility] hydrocortis one 10 mg tablet 2022-03 0 00:00: 00 01-07 00:00 :00 No TAKE TWO (2) TABLET(S) BY MOUTH EVERY MORNING AND ONE-HALF (1/2) TABLET(S) AROUND 3PM DAILY. [facility] citalopram 20 mg tablet 2022-03 0 00:00: 00 08-03 00:00 :00 No [id number] 20mg Take 1 tablet by mouth in the morning. [facility] levothyroxi ne (SYNTHROID) 50 mcg tablet 2022-03 0 00:00: 00 03-17 00:00 :00 No [id number] TAKE ONE (1) TABLET BY MOUTH EVERY MORNING. [facility] SYNTHROID 50 mcg tablet 2022-03 0 00:00: 00 01-02 00:00 :00 No [id number] TAKE ONE (1) TABLET BY MOUTH EVERY MORNING. [facility] insulin lispro (HUMALOG KWIKPEN INSULIN) 100 unit/mL pen injector 12-25 00:00: 00 01-07 00:00 :00 No [id number] 10U inject 10 Units under the skin 2 (two) times daily before breakfast and dinner. If your BG 80 - 120 take half your insulin, if your BG <80 do not take any insulin for diagnosis E11.65. [facility] insulin lispro (HUMALOG KWIKPEN INSULIN) 100 unit/mL pen injector 12-25 00:00: 00 01-07 00:00 :00 No [id number] 10U inject 10 Units under the skin 2 (two) times daily before breakfast and dinner. If your BG 80 - 120 take half your insulin, if your BG <80 do not take any insulin for diagnosis E11.65. [facility] insulin aspart RAPID 100 unit/mL injection 12-25 00:00: 00 01-01 00:00 :00 No INJECT 10 UNITS SUBCUTANEO USLY TWICE DAILY BEFORE BREAKFAST AND DINNER [facility] Insulin Syringe-Nee dle U-100 (BD INSULIN SYRINGE ULTRA-FINE) 1 mL 31 gauge x 5/16 Syrg 12-23 00:00: 00 11-16 00:00 :00 No [id number] Use as directed to inject insulin for diagnosis E10.29 [facility] flash glucose sensor (FREESTYLE KARLA 2 SENSOR) Kit 12-23 00:00: 00 03-03 00:00 :00 No [id number] 1{each} inject 1 Each under the skin every 14 (fourteen) days. Use for diagnosis E10.29 [facility] insulin aspart RAPID (NOVOLOG U-100 INSULIN ASPART) 100 unit/mL injection 12-23 00:00: 00 12-25 00:00 :00 No [id number] 10U inject 10 Units under the skin 2 (two) times daily before breakfast and dinner. For diagnosis E11.65 [facility] Insulin Glargine (LANTUS SOLOSTAR U-100 INSULIN) 100 unit/mL (3 mL) injection 12-19 00:00: 00 01-13 00:00 :00 No [id number] 19U inject 19 Units under the skin with evening meal. Sig: inject 19 Units under the skin with evening meal. If your BG 80 - 120 take half your insulin, if your BG <80 do not take any insulin. [facility] Insulin Glargine (LANTUS SOLOSTAR U-100 INSULIN) 100 unit/mL (3 mL) injection 12-19 00:00: 00 01-13 00:00 :00 No [id number] 19U inject 19 Units under the skin with evening meal. Sig: inject 19 Units under the skin with evening meal. If your BG 80 - 120 take half your insulin, if your BG <80 do not take any insulin. [facility] insulin aspart U-100 (NOVOLOG FLEXPEN U-100 INSULIN) 100 unit/mL (3 mL) injection 12-19 00:00: 00 12-23 00:00 :00 No [id number] 6U inject 6 Units under the skin in the morning and 6 Units in the evening. If your BG 80 - 120 take half your insulin, if your BG <80 do not take any insulin. [facility] ACYCLOVIR 200 mg capsule 11-24 00:00: 00 12-09 00:00 :00 No [id number] TAKE TWO (2) CAPSULE(S) BY MOUTH IN THE MORNING AND 2 CAPSULES IN THE EVENING. [facility] albuterol 90 mcg/actuati on inhaler 11-17 00:00: 00 Yes [id number] 2{puff} Inhale 2 Puffs every 6 (six) hours as needed for Wheezing or Shortness of Breath. [facility] SYNTHROID 50 mcg tablet 10-26 00:00: 01-02 00:00 :00 No [id number] TAKE ONE (1) TABLET BY MOUTH EVERY MORNING. [facility] atorvastati n 80 mg tablet 10-24 00:00: 00 06-07 00:00 :00 No [id number] 80mg Take 1 tablet by mouth at bedtime. [facility] ENALAPRIL 2.5 mg tablet 10-20 00:00: 00 03-05 00:00 :00 No [id number] TAKE ONE (1) TABLET(S) BY MOUTH ONCE A DAY. [facility] Insulin [place], Disposable, (NOVOFINE 32) 32 gauge x 1/4" Ndle 09-23 00:00: 00 Yes [id number] Use as directed to inject insulin, [facility] Insulin [place], Disposable, (NOVOFINE 32) 32 gauge x 1/4" Ndle 09-23 00:00: 00 11-16 00:00 :00 No [id number] Use as directed to inject insulin, [facility] flash glucose sensor (FREESTYLE KARLA 2 SENSOR) Kit 09-23 00:00: 00 12-23 00:00 :00 No [id number] 1{each} inject 1 Each under the skin every 14 (fourteen) days. E11.65 [facility] insulin lispro (HUMALOG KWIKPEN INSULIN) 100 unit/mL pen injector 09-23 00:00: 00 12-19 00:00 :00 No [id number] 6U inject 6 Units under the skin in the morning and 6 Units in the evening. If your BG 80 - 120 take half your insulin, if your BG <80 do not take any insulin.E1 1.65 [facility] Insulin NPH Human Recomb (HUMULIN N NPH INSULIN KWIKPEN) 100 unit/mL (3 mL) injection 09-23 00:00: 00 12-19 00:00 :00 No [id number] 19U inject 19 Units under the skin with evening meal. If your BG 80 - 120 take half your insulin, if your BG <80 do not take any insulin. [facility] flash glucose sensor (FREESTYLE KARLA 2 SENSOR) Kit 09-15 00:00: 00 09-23 00:00 :00 No [id number] 1{each} 1 Each every 14 (fourteen) days. [facility] Insulin NPH Human Recomb (HUMULIN N NPH INSULIN KWIKPEN) 100 unit/mL (3 mL) injection 09-12 00:00: 00 09-23 00:00 :00 No [id number] inject 12 Units under the skin every morning for 30 days, THEN 7 Units every evening for 30 days. [facility] insulin lispro (HUMALOG KWIKPEN INSULIN) 100 unit/mL pen injector 09-12 00:00: 00 09-23 00:00 :00 No [id number] 6U inject 6 Units under the skin in the morning and 6 Units at noon and 6 Units in the evening. inject before meals. [facility] cyanocobala min (DODEX) injection 2,000 mcg 09-10 17:30: 00 09-10 16:24 :00 No [id number] 2000ug [facility] Flaxseed Oil (FLAXSEED OIL) 1,000 mg Cap 09-10 10:13: 36 Yes [id number] 3000mg Take 3,000 mg by mouth daily. [facility] MULTIVITAMI N ORAL 09-10 10:13: 36 Yes Take by mouth. [facility] biotin 1 mg Cap 09-10 10:13: 36 Yes 1{capsu le} Take 1 capsule by mouth daily. [facility] insulin lispro (HUMALOG KWIKPEN INSULIN) 100 unit/mL pen injector 09-10 00:00: 00 09-12 00:00 :00 No [id number] 6U inject 6 Units under the skin in the morning and 6 Units at noon and 6 Units in the evening. inject before meals. [facility] Insulin NPH Human Recomb (HUMULIN N NPH INSULIN KWIKPEN) 100 unit/mL (3 mL) injection -14 00:00: 00 09-12 00:00 :00 No [id number] inject 12 Units under the skin every morning for 30 days, THEN 7 Units every evening for 30 days. [facility] Flaxseed Oil (FLAXSEED OIL) 1,000 mg Cap 3-0 05 10:21: 24 Yes [id number] 3000mg Take 3,000 mg by mouth daily. [facility] MULTIVITAMI N ORAL 2022-0 09-01 10:21: 17 Yes Take by mouth. [facility] biotin 1 mg Cap 2022-0 09-01 10:21: 17 Yes 1{capsu le} Take 1 capsule by mouth daily. [facility] tacrolimus 0.5 mg capsule 08-13 00:00: 00 Yes [id number] .5mg Take 1 capsule by mouth in the morning and 1 capsule in the evening. z94.0 [facility] mycophenola te 250 mg capsule 08-13 00:00: 00 08-17 00:00 :00 No [id number] 250mg Take 1 capsule by mouth every 12 (twelve) hours. [facility] tacrolimus 0.5 mg capsule 08-13 00:00: 00 06-11 00:00 :00 No [id number] .5mg Take 1 capsule by mouth in the morning and 1 capsule in the evening. z94.0 [facility] SYNTHROID 50 mcg tablet 08-13 00:00: 00 10-26 00:00 :00 No [id number] TAKE ONE (1) TABLET BY MOUTH EVERY MORNING. [facility] predniSONE 10 mg tablet 16 00:00: 00 09-23 00:00 :00 No [id number] 10mg Take 1 tablet by mouth in the morning. [facility] Flaxseed Oil (FLAXSEED OIL) 1,000 mg Cap 2022-0 15 17:42: 26 Yes [id number] 3000mg Take 3,000 mg by mouth daily. [facility] MULTIVITAMI N ORAL 08-11 17:42: 26 Yes Take by mouth. [facility] biotin 1 mg Cap 08-11 17:42: 26 Yes 1{capsu le} Take 1 capsule by mouth daily. [facility] Cholecalcif haroldo, Vitamin D3, 50 mcg (2,000 unit) tablet 08-11 15:02: 32 08-11 00:00 :00 No 2000mg Take 2,000 mg by mouth 2 (two) times daily. [facility] ondansetron (ZOFRAN (PF)) injection 4 mg 08-11 14:30: 00 08-11 13:45 :00 No 4mg 4 mg, Slow IV Push, ONCE, On Thu08/11/22 at 0930, For 1 dose
Do ses of ondansetro n 16 mg and above need to be administer ed via IV piggyback. For Dose >=24mg ECG monitoring is advisable.
[facility] insulin NPH (HUMULIN N) injection 14 Units 08-11 14:00: 00 Yes 14U 14 Units, Subcutaneo us, QAM, First dose (after last modificati on) on Thu08/11/22 at 0900, Until Discontinu ed, Routine [facility] glycerin/mi neral oil (AGLO ENEMA) (COMPOUNDED ) Enem 225 mL 08-11 05:00: 00 08-11 10:13 :00 No 225mL 225 mL, Rectal, ONCE, 1 dose, On Thu08/11/22 at 0000, Routine [facility] insulin NPH (HUMULIN N) injection 6 Units 08-11 02:00: 00 Yes 6U 6 Units, Subcutaneo us, QHS, First dose (after last modificati on) on Thu08/10/22 at 2100, Until Discontinu ed, Routine [facility] polyethylen [facility] glycol 3350 powder 17 g 08-11 01:00: 00 Yes 17g 17 g, Oral, BID, First dose (after last modificati on) on 08/10/22 at 1999, Until Discontinu ed, Routine [facility] aspirin 81 mg chewable tablet 08-11 00:00: 00 Yes [id number] 81mg Take 1 tablet by mouth in the morning. [facility] budesonide- formoteroL (SYMBICORT) 80-4.5 mcg/actuati on inhaler 08-11 00:00: 00 Yes [id number] 2{puff} Inhale 2 Puffs in the morning and 2 Puffs in the evening. [facility] cyclobenzap rine 10 mg tablet 08-11 00:00: 00 Yes [id number] 9103 10mg Take 1 tablet by mouth at bedtime. [facility] fluticasone propionate 50 mcg/actuati on nasal spray 08-11 00:00: 00 Yes [id number] 1{spray } Use 1 Magna in each nostril in the morning and 1 Magna in the evening. [facility] polyethylen e glycol 3350 (CLEARLAX) 17 gram/dose powder 08-11 00:00: 00 Yes [id number] 17g Take 17 g by mouth in the morning and 17 g in the evening. [facility] benzonatate (TESSALON PERLES) 100 mg capsule 08-11 00:00: 00 06-24 00:00 :00 No [id number] 100mg Take 1 capsule by mouth every 8 (eight) hours as needed for Cough. [facility] cholecalcif haroldo, vitamin D3, 25 mcg (1,000 unit) tablet 08-11 00:00: 00 06-24 00:00 :00 No [id number] Take 2 tablets by mouth in the morning and 2 tablets in the evening. [facility] omeprazole 40 mg capsule 08-11 00:00: 00 03-02 00:00 :00 No [id number] 40mg Take 1 capsule by mouth in the morning. [facility] hydrocortis one 10 mg tablet 08-11 00:00: 01-05 00:00 :00 No TAKE TWO (2) TABLET(S) BY MOUTH ONCE A DAY IN THE MORNING AND 1/2 TABLET AROUND 3. [facility] citalopram 20 mg tablet 08-11 00:00: 00 01-02 00:00 :00 No [id number] 20mg Take 1 tablet by mouth in the morning. [facility] Insulin NPH Human Recomb (HUMULIN N NPH INSULIN KWIKPEN) 100 unit/mL (3 mL) injection 08-11 00:00: 00 12-19 00:00 :00 No [id number] 5U inject 5 Units under the skin every evening. [facility] acyclovir 200 mg capsule 08-11 00:00: 00 11-24 00:00 :00 No [id number] 400mg Take 2 capsules by mouth in the morning and 2 capsules in the evening. [facility] albuterol 90 mcg/actuati on inhaler 08-11 00:00: 00 11-17 00:00 :00 No [id number] 2{puff} Inhale 2 Puffs every 6 (six) hours as needed for Wheezing or Shortness of Breath. [facility] atorvastati n 80 mg tablet 08-11 00:00: 00 10-24 00:00 :00 No [id number] 80mg Take 1 tablet by mouth at bedtime. [facility] enalapril 2.5 mg tablet 08-11 00:00: 00 10-20 00:00 :00 No [id number] 2.5mg Take 1 tablet by mouth in the morning. [facility] Insulin [place], Disposable, (NOVOFINE 32) 32 gauge x 1/4" Ndle 08-11 00:00: 00 09-23 00:00 :00 No [id number] Use as directed to inject insulin, [facility] Insulin [place], Disposable, (NOVOFINE 32) 32 gauge x 1/4" Ndle 08-11 00:00: 00 09-23 00:00 :00 No [id number] Use as directed to inject insulin, [facility] insulin lispro (HUMALOG KWIKPEN INSULIN) 100 unit/mL pen injector 08-11 00:00: 00 09-10 00:00 :00 No [id number] 5U inject 5 Units under the skin in the morning and 5 Units at noon and 5 Units in the evening. inject before meals. [facility] Insulin NPH Human Recomb (HUMULIN N NPH INSULIN KWIKPEN) 100 unit/mL (3 mL) injection 08-11 00:00: 00 09-10 00:00 :00 No [id number] 12U inject 12 Units under the skin every morning and inject 5 Units under the skin every evening. [facility] mycophenola te 250 mg capsule 08-11 00:00: 00 08-13 00:00 :00 No [id number] 250mg Take 1 capsule by mouth every 12 (twelve) hours. [facility] tacrolimus 0.5 mg capsule 08-11 00:00: 00 08-13 00:00 :00 No [id number] .5mg Take 1 capsule by mouth in the morning and 1 capsule in the evening. z94.0 [facility] levothyroxi ne (SYNTHROID) 50 mcg tablet 08-11 00:00: 00 08-13 00:00 :00 No [id number] 50ug Take 1 tablet by mouth every morning. Brand name only [facility] Insulin NPH Human Recomb (HUMULIN N NPH INSULIN KWIKPEN) 100 unit/mL (3 mL) injection 08-11 00:00: 00 08-11 00:00 :00 No [id number] 14U inject 14 Units under the skin every morning and inject 6 Units under the skin every evening. [facility] Insulin NPH Human Recomb (HUMULIN N NPH INSULIN KWIKPEN) 100 unit/mL (3 mL) injection 08-11 00:00: 00 08-11 00:00 :00 No [id number] 6U inject 6 Units under the skin every evening. [facility] insulin lispro (HUMALOG KWIKPEN INSULIN) 100 unit/mL pen injector 08-11 00:00: 00 08-11 00:00 :00 No [id number] 6U inject 6 Units under the skin in the morning and 6 Units at noon and 6 Units in the evening. inject before meals. [facility] polyethylen e glycol 3350 powder 17 g 08-10 19:30: 00 08-10 19:37 :00 No 17g 17 g, Oral, ONCE, 1 dose, On 08/10/22 at 1445, Routine [facility] FENTanyl PF (SUBLIMAZE (PF)) injection 25 mcg 08-10 19:05: 00 08-10 19:37 :00 No 25ug 25 mcg, Slow IV Push, ONCE, 1 dose, On 08/10/22 at 1415, Routine [facility] bisacodyL (DULCOLAX) suppository 10 mg 08-10 17:40: 35 Yes 10mg 10 mg, Rectal, QDAILYPRN, Starting on Thu08/10/22 at 1240, Until Discontinu ed, Routine, Constipati on unresolved by oral medication s [facility] Sliding Scale Insulin - Lispro (HumaLOG) 08-10 17:00: 00 Yes Subcutaneo us, TID MEALS+HS, First dose (after last modificati on) on 08/10/22 at 1200, Until Discontinu ed, Routine [facility] FENTanyl PF (SUBLIMAZE (PF)) injection 50 mcg 08-10 05:00: 00 08-10 04:34 :00 No 50ug 50 mcg, Slow IV Push, ONCE, 1 dose, On Thu08/10/22 at 0000, Routine [facility] insulin NPH (HUMULIN N) injection 5 Units 08-10 02:00: 00 08-10 15:16 :42 No 5U 5 Units, Subcutaneo us, QHS, First dose (after last modificati on) on 08/09/22 at 2100, Until Discontinu ed, Routine [facility] cyclobenzap rine (FLEXERIL) tablet 10 mg 08-10 01:00: 00 Yes 10mg 10 mg, Oral, BID, First dose (after last modificati on) on 08/09/22 at 2000, Until Discontinu ed, Routine [facility] Sliding Scale Insulin - Lispro (HumaLOG) 08-10 01:00: 00 08-10 15:16 :42 No Subcutaneo us, Q4H, First dose (after last modificati on) on 08/09/22 at 2000, Until Discontinu ed, Routine [facility] insulin lispro (human) (HumaLOG U-100) injection 4 Units 08-09 17:00: 00 08-10 15:16 :42 No 4U 4 Units, Subcutaneo us, TID MEALS, First dose (after last modificati on) on 08/09/22 at 1200, Until Discontinu ed, Routine [facility] insulin NPH (HUMULIN N) injection 10 Units 08-09 14:00: 00 08-10 15:16 :42 No 10U 10 Units, Subcutaneo us, QAM, First dose (after last modificati on) on 08/09/22 at 0900, Until Discontinu ed, Routine [facility] magnesium sulfate in water 4 gram/50 mL (8 %) IV Piggyback 4 g 08-09 12:30: 00 08-09 17:25 :00 No 4g 4 g, IV Piggyback, at 25 mL/hr Administer over 120 Minutes, ONCE, 1 dose, On 08/09/22 at 0730, Routine [facility] atorvastati n (LIPITOR) tablet 80 mg 08-09 02:00: 00 Yes 80mg 80 mg, Oral, QHS, First dose on Thu08/08/22 at 2100, Until Discontinu ed, Routine [facility] insulin NPH (HUMULIN N) injection 4 Units 08-09 02:00: 00 08-09 13:43 :51 No 4U 4 Units, Subcutaneo us, QHS, First dose on Thu08/08/22 at 2100, Until Discontinu ed, Routine [facility] cyclobenzap rine (FLEXERIL) tablet 10 mg 08-09 02:00: 00 08-09 22:52 :18 No 10mg 10 mg, Oral, QHS, First dose on Thu08/08/22 at 2100, Until Discontinu ed, Routine [facility] enoxaparin (LOVENOX) injection 40 mg 08-08 22:00: 00 Yes 40mg 40 mg, Subcutaneo us, DAILY, First dose on Thu08/08/22 at 1700, Until Discontinu ed, Routine [facility] insulin lispro (human) (HumaLOG U-100) injection 3 Units 08-08 22:00: 00 08-09 13:44 :11 No 3U 3 Units, Subcutaneo us, TID MEALS, First dose on Thu08/08/22 at 1700, Until Discontinu ed, Routine [facility] insulin NPH (HUMULIN N) injection 8 Units 08-08 18:45: 00 08-09 13:43 :37 No 8U 8 Units, Subcutaneo us, QAM, First dose on Thu08/08/22 at 1345, Until Discontinu ed, Routine [facility] albuterol (PROVENTIL) 2.5 mg /3 mL (0.083 %) nebulizer solution 2.5 mg 08-08 14:49: 39 Yes 2.5mg 2.5 mg, Inhalation , Q6HPRN, Starting on Thu08/08/22 at 0949, Until Discontinu ed, Routine, Wheezing, Shortness of Breath [facility] sennosides (SENOKOT) tablet 8.6 mg 08-08 14:00: 00 Yes 8.6mg 8.6 mg, Oral, DAILY, First dose on Thu08/08/22 at 0900, Until Discontinu ed, Routine [facility] predniSONE (DELTASONE) tablet 10 mg 08-08 14:00: 00 Yes 10mg 10 mg, Oral, DAILY, First dose on Thu08/08/22 at 0900, Until Discontinu ed, Routine [facility] omeprazole (PRILOSEC) capsule 40 mg 08-08 14:00: 00 Yes 40mg 40 mg, Oral, DAILY, First dose on Thu08/08/22 at 0900, Until Discontinu ed [facility] enalapril (VASOTEC) tablet 2.5 mg 08-08 14:00: 00 Yes 2.5mg 2.5 mg, Oral, DAILY, First dose on Thu08/08/22 at 0900, Until Discontinu ed, Routine [facility] citalopram (CELEXA) tablet 20 mg 08-08 14:00: 00 Yes 20mg 20 mg, Oral, DAILY, First dose on Thu08/08/22 at 0900, Until Discontinu ed, Routine [facility] aspirin chewable tablet 81 mg 08-08 14:00: 00 Yes 81mg 81 mg, Oral, DAILY, First dose on Thu08/08/22 at 0900, Until Discontinu ed, Routine [facility] polyethylen e glycol 3350 powder 17 g 08-08 14:00: 00 08-10 14:17 :49 No 17g 17 g, Oral, DAILY, First dose on Thu08/08/22 at 0900, Until Discontinu ed, Routine [facility] tacrolimus (PROGRAF) capsule 0.5 mg 08-08 13:00: 00 Yes .5mg 0.5 mg, Oral, BID, First dose on Thu08/08/22 at 0800, Until Discontinu ed, Routine
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 : SAPPHIRE SEPULVEDA [facility] fluticasone propionate 50 mcg/actuati on nasal spray 1 Magna 08-08 13:00: 00 Yes 1{spray } 1 Magna, Nasal, BID, First dose on Thu08/08/22 at 0800, Until Discontinu ed, Routine [facility] cholecalcif haroldo (vitamin D3) tablet 2,000 Units 08-08 13:00: 00 Yes 2000U 2,000 Units, Oral, BID, First dose on Thu08/08/22 at 0800, Until Discontinu ed [facility] budesonide- formoteroL (SYMBICORT) 80-4.5 mcg/actuati on inhaler 2 Puff 08-08 13:00: 00 Yes 2{puff} 2 Puff, Inhalation , BID, First dose on Thu08/08/22 at 0800, Until Discontinu ed, Routine [facility] acyclovir (ZOVIRAX) capsule 400 mg 08-08 13:00: 00 Yes 400mg 400 mg, Oral, BID, First dose on Thu08/08/22 at 0800, Until Discontinu ed, JOSE CRUZ [facility] Sliding Scale Insulin - Lispro (HumaLOG) 08-08 13:00: 00 08-09 22:39 :20 No Subcutaneo us, Q4H, First dose on Thu08/08/22 at 0800, Until Discontinu ed, Routine [facility] KCL (KLOR-CON M20) tablet 40 mEq 08-08 12:45: 00 08-08 13:55 :00 No 40meq 40 mEq, Oral, ONCE, 1 dose, On Thu08/08/22 at 0745, Routine [facility] levothyroxi ne (SYNTHROID) tablet 50 mcg 08-08 11:00: 00 Yes 50ug 50 mcg, Oral, QAM-0600, First dose on Thu08/08/22 at 0600, Until Discontinu ed, Routine [facility] dextrose 10% (D10W) bolus infusion 250 mL 08-08 10:33: 20 Yes 250mL 250 mL, IV Infusion, PRN - SEE INSTRUCTIO NS, Administer over 60 Minutes, Other, If blood glucose is < or = 70 mg/dL and patient is unable to swallow or has mental status changes, Starting on Thu08/08/22 at 0533
If blood glucose is < or = 70 mg/dL and patient is unable to swallow or has mental status changes (Give glucagon order if patient needs fluid restrictio n): IF IV access available: Dextrose 10%. 1. 125 mL (? bag) of D10W IV infusion - equivalent to 12.5 g dextrose 2. Blood glucose - draw blood glucose 15 minutes after D10W Administra tion. 3. If blood glucose is < 80 mg/dL, repeat.
[facility] glucagon (GLUCAGEN DIAGNOSTIC KIT) injection 1 mg 08-08 10:33: 16 Yes 1mg 1 mg, Intramuscu lar, PRN, Starting on Thu08/08/22 at 0533, Until Discontinu ed, JOSE CRUZ, Blood Glucose < or = 70 mg/dL and patient is NPO, unable to swallow or has mental changes. [facility] acetaminoph en (TYLENOL) tablet 650 mg 08-08 10:32: 51 Yes 650mg 650 mg, Oral, Q6HPRN, Starting on Thu08/08/22 at 0532, Until Discontinu ed, Routine, Pain (scale 1-3) [facility] benzonatate (TESSALON PERLES) capsule 100 mg 08-08 10:26: 30 Yes 100mg 100 mg, Oral, Q8HPRN, Starting on Thu08/08/22 at 0526, Until Discontinu ed, Routine, Cough [facility] albuterol (VENTOLIN) inhaler 2 Puff 08-08 10:26: 24 Yes 2{puff} 2 Puff, Inhalation , Q6HPRN, Starting on Thu08/08/22 at 0526, Until Discontinu ed, Routine, Wheezing, Shortness of Breath [facility] FENTanyl PF (SUBLIMAZE (PF)) injection 50 mcg 08-08 07:15: 00 08-08 06:22 :00 No 50ug 50 mcg, Slow IV Push, ONCE, 1 dose, On Thu08/08/22 at 0215, Routine [facility] NaCl 0.9% (NS) bolus infusion 500 mL 08-08 05:30: 00 08-08 06:27 :00 No 500mL at 999 mL/hr, 500 mL, IV Infusion, ONCE, 1 dose, On Thu08/08/22 at 0030, STAT [facility] FENTanyl PF (SUBLIMAZE (PF)) injection 50 mcg 08-08 05:30: 00 08-08 05:31 :00 No 50ug 50 mcg, Slow IV Push, ONCE, 1 dose, On Thu08/08/22 at 0030, STAT [facility] NaCl 0.9% (NS) IV infusion 1,000 mL 08-08 04:30: 00 08-09 14:31 :01 No 1000mL at 999 mL/hr, Intravenou s, CONTINUOUS , Starting on Sintia 08/07/22 at 2330, Until 08/09/22 at 0931, Routine [facility] insulin regular human (HUMULIN R) injection 8 Units 08-08 04:15: 00 08-08 03:36 :00 No 8U 8 Units, Subcutaneo us, ONCE, 1 dose, On Thu08/07/22 at 2315, Routine
Indicatio n for insulin: Hyperglyce alexa [facility] Diclofenac Sodium 1 % gel 08-08 00:00: 00 06-24 00:00 :00 No APPLY 2-4 GRAMS TO THE AFFECTED AREA(S) THREE TIMES A DAY NEEDED FOR PAIN. [facility] methocarbam oL 500 mg tablet 4-19 00:00: 00 06-24 00:00 :00 No 500mg Take 1 tablet by mouth 4 (four) times daily. [facility] atorvastati n 80 mg tablet 4-18 00:00: 00 08-11 00:00 :00 No [id number] 80mg Take 1 tablet by mouth at bedtime. [facility] predniSONE 10 mg tablet 410 00:00: 00 08-11 00:00 :00 No Take 8 tablets by mouth daily for 3 days, THEN 6 tablets daily for 3 days, THEN 4 tablets daily for 3 days, THEN 2 tablets daily for 3 days, THEN 1 tablet daily for 30 days. [facility] albuterol 2.5 mg/0.5 mL nebulizer solution 06-10 00:00: 00 08-11 00:00 :00 No [id number] 2.5mg Inhale 0.5 mL every 6 (six) hours as needed for Wheezing or Shortness of Breath. [facility] budesonide- formoteroL (SYMBICORT) 80-4.5 mcg/actuati on inhaler 06-10 00:00: 00 08-11 00:00 :00 No [id number] 2{puff} Inhale 2 Puffs in the morning and 2 Puffs in the evening. [facility] clindamycin 150 mg capsule 06-10 00:00: 00 08-08 00:00 :00 No 450mg Take 3 capsules by mouth in the morning and 3 capsules at noon and 3 capsules in the evening. [facility] codeine-gua ifenesin 10-100 mg/5 mL oral solution 06-10 00:00: 00 06-18 04:59 :00 No [id number] 5mL Take 5 mL by mouth every 6 (six) hours as needed for Cough for up to 7 days. Indication s: acute pain, cough [facility] proMETHazin e 25 mg tablet 04-22 00:00: 00 01-07 00:00 :00 No [id number] TAKE ONE (1) TABLET(S) BY MOUTH EVERY SIX HOURS NEEDED FOR NAUSEA AND VOMITING. [facility] benzonatate (TESSALON PERLES) 100 mg capsule 04-22 00:00: 08-11 00:00 :00 No [id number] 100mg Take 1 capsule by mouth every 8 (eight) hours as needed for Cough. [facility] cyclobenzap rine 10 mg tablet 04-22 00:00: 00 08-11 00:00 :00 No [id number] 10mg Take 1 tablet by mouth at bedtime. [facility] clindamycin 300 mg capsule 04-22 00:00: 00 04-30 05:59 :00 No [id number] 300mg Take 1 capsule by mouth in the morning and 1 capsule at noon and 1 capsule in the evening. Do all this for 7 days. [facility] acyclovir 200 mg capsule 04-08 00:00: 00 08-11 00:00 :00 No [id number] 400mg Take 2 capsules by mouth in the morning and 2 capsules in the evening. [facility] Diclofenac Sodium 1 % gel 04-08 00:00: 08-08 00:00 :00 No [id number] Take 2-4 grams three times a day as needed for pain [facility] atorvastati n 80 mg tablet 04-08 00:00: 00 07-15 00:00 :00 No [id number] 80mg Take 1 tablet by mouth at bedtime. [facility] gabapentin 300 mg capsule 04-08 00:00: 04-22 00:00 :00 No [id number] 300mg Take 1 capsule by mouth in the morning and 1 capsule in the evening. [facility] albuterol 90 mcg/actuati on inhaler 2021-03 230 00:00: 00 08-11 00:00 :00 No [id number] 2{puff} Inhale 2 Puffs every 6 (six) hours as needed for Wheezing or Shortness of Breath. [facility] clindamycin 150 mg capsule 2021-03 2 00:00: 00 04-22 00:00 :00 No [id number] 450mg Take 3 capsules by mouth in the morning and 3 capsules at noon and 3 capsules in the evening. [facility] SYNTHROID 50 mcg tablet 2021-03 00:00: 00 08-11 00:00 :00 No [id number] 50ug Take 1 tablet by mouth every morning. Brand name only [facility] hydrocortis one 10 mg tablet 2021-03 00:00: 00 08-11 00:00 :00 No [id number] TAKE 2 TABLETS BY MOUTH ONCE DAILY IN THE MORNING AND 1/2 TABLET AROUND 3PM [facility] ACYCLOVIR 200 mg capsule 2021-03 00:00: 00 04-08 00:00 :00 No [id number] TAKE TWO (2) CAPSULE(S) BY MOUTH TWICE A DAY. [facility] Cholecalcif haroldo, Vitamin D3, 50 mcg (2,000 unit) tablet 2021-03 10:46: 56 Yes 2000mg Take 2,000 mg by mouth 2 (two) times daily. [facility] Flaxseed Oil (FLAXSEED OIL) 1,000 mg Cap 2021-03 10:46: 56 Yes [id number] 3000mg Take 3,000 mg by mouth daily. [facility] MULTIVITAMI N ORAL 2021-03 10:46: 56 Yes Take by mouth. [facility] biotin 1 mg Cap 2021-03 10:46: 56 Yes 1{capsu le} Take 1 capsule by mouth daily. [facility] MYCOPHENOLA TE 250 mg capsule 2021-03 00:00: 00 08-11 00:00 :00 No TAKE 1 CAPSULE BY MOUTH EVERY 12 HOURS*Z94. 0* [facility] ENALAPRIL 2.5 mg tablet 2021-03 00:00: 00 08-11 00:00 :00 No TAKE ONE (1) TABLET(S) BY MOUTH ONCE A DAY. [facility] ATORVASTATI N 80 mg tablet 2021-03 00:00: 00 04-08 00:00 :00 No [id number] TAKE ONE (1) TABLET(S) BY MOUTH AT BEDTIME. [facility] ciprofloxac in HCl (CIPRO) 500 mg tablet 2021-03 007 00:00: 00 01-11 04:59 :00 No 500mg Take 1 tablet by mouth every 12 (twelve) hours for 7 days. [facility] biotin 1 mg Cap 12-24 11:30: 43 Yes 1{capsu le} Take 1 capsule by mouth daily. [facility] MULTIVITAMI N ORAL 12-24 11:30: 41 Yes Take by mouth. [facility] Cholecalcif haroldo, Vitamin D3, (VITAMIN D-3) 2,000 unit Tab 12-24 11:30: 35 Yes 2000mg Take 2,000 mg by mouth 2 (two) times daily. [facility] Flaxseed Oil (FLAXSEED OIL) 1,000 mg Cap 12-24 11:30: 35 Yes [id number] 3000mg Take 3,000 mg by mouth daily. [facility] omeprazole 40 mg capsule 12-24 00:00: 00 08-11 00:00 :00 No [id number] 40mg Take 1 capsule by mouth in the morning. [facility] citalopram 20 mg tablet 12-24 00:00: 00 08-11 00:00 :00 No [id number] 20mg Take 1 tablet by mouth in the morning. [facility] methocarbam oL 500 mg tablet 12-24 00:00: 00 04-22 00:00 :00 No [id number] TAKE ONE (1) TABLET BY MOUTH FOUR TIMES DAILY. [facility] tacrolimus 0.5 mg capsule 12-13 00:00: 00 08-11 00:00 :00 No [id number] .5mg Take 1 capsule by mouth in the morning and 1 capsule in the evening. z94.0 [facility] furosemide (LASIX) 20 mg tablet 12-06 00:00: 00 02-25 00:00 :00 No [id number] 20mg Take 1 tablet by mouth in the morning. Or as needed for swelling. [facility] Cholecalcif haroldo, Vitamin D3, (VITAMIN D-3) 2,000 unit Tab 12-05 10:20: 03 Yes 2000mg Take 2,000 mg by mouth 2 (two) times daily. [facility] Flaxseed Oil (FLAXSEED OIL) 1,000 mg Cap 12-05 10:20: 01 Yes [id number] 3000mg Take 3,000 mg by mouth daily. [facility] MULTIVITAMI N ORAL 12-05 10:19: 29 Yes 1{tbl} Take 1 tablet by mouth in the morning. [facility] biotin 1 mg Cap 12-05 10:19: 07 Yes 1{capsu le} Take 1 capsule by mouth daily. [facility] tacrolimus 0.5 mg capsule 12-05 00:00: 00 12-13 00:00 :00 No [id number] .5mg Take 1 capsule by mouth in the morning and 1 capsule in the evening. z94.0 [facility] acyclovir 200 mg capsule 11-28 00:00: 00 02-06 00:00 :00 No [id number] TAKE TWO (2) CAPSULE(S) BY MOUTH TWICE A DAY. [facility] citalopram 20 mg tablet 11-28 00:00: 00 12-24 00:00 :00 No [id number] 20mg Take 1 tablet by mouth in the morning. [facility] TACROLIMUS 1 mg capsule 10-14 00:00: 00 12-05 00:00 :00 No 1mg TAKE 1 CAPSULE BY MOUTH EVERY 12 (TWELVE) HOURS. Z94.0 [facility] TACROLIMUS 0.5 mg capsule 10-14 00:00: 00 12-05 00:00 :00 No .5mg TAKE 1 CAPSULE BY MOUTH EVERY EVENING. Z94.0 [facility] proMETHazin e 25 mg tablet 08-27 00:00: 00 04-22 00:00 :00 No TAKE ONE (1) TABLET(S) BY MOUTH EVERY SIX HOURS NEEDED FOR NAUSEA AND VOMITING. [facility] methocarbam oL 500 mg tablet 08-27 00:00: 00 12-24 00:00 :00 No TAKE ONE (1) TABLET BY MOUTH FOUR TIMES DAILY. [facility] omeprazole 40 mg capsule 07-30 00:00: 00 12-24 00:00 :00 No [id number] 40mg Take 1 capsule by mouth daily. [facility] hydrocortis one 10 mg tablet 07-09 00:00: 00 02-18 00:00 :00 No [id number] TAKE 2 TABLETS BY MOUTH ONCE DAILY IN THE MORNING AND 1/2 TABLET AROUND 3PM [facility] SYNTHROID 50 mcg tablet 07-09 00:00: 00 02-18 00:00 :00 No [id number] 50ug Take 1 tablet by mouth every morning. Brand name only [facility] atorvastati n 80 mg tablet 07-08 00:00: 00 01-07 00:00 :00 No [id number] 80mg Take 1 tablet by mouth at bedtime. [facility] proMETHazin e 12.5 mg tablet 2020-03 00:00: 00 12-05 00:00 :00 No [id number] 12.5mg Take 1 tablet by mouth every 6 (six) hours as needed for Nausea and Vomiting (N/V). [facility] mycophenola te 250 mg capsule 2020-03 00:00: 00 01-31 00:00 :00 No 250mg Take 1 capsule by mouth every 12 (twelve) hours. [facility] enalapril 2.5 mg tablet 2020-03 00:00: 00 01-17 00:00 :00 No 2.5mg Take 1 tablet by mouth daily. [facility] levoFLOXaci n 750 mg tablet 12-04 00:00: 00 12-15 04:59 :00 No [id number] 750mg Take 1 tablet by mouth every 24 (twenty-fo ur) hours for 10 days. [facility] metoprolol succinate XL 25 mg 24 hr tablet 11-05 00:00: 00 12-06 04:59 :00 No [id number] 12.5mg Take 0.5 tablets by mouth daily for 30 days. [facility] levothyroxi ne (SYNTHROID) 50 mcg tablet 10-29 00:00: 00 12-11 00:00 :00 No [id number] 50ug Take 1 tablet by mouth every morning. Brand name only [facility] Omeprazole Magnesium 20 mg capsule 10-22 12:43: 04 10-22 00:00 :00 No Take by mouth. [facility] omeprazole 40 mg capsule 10-22 00:00: 00 07-30 00:00 :00 No [id number] 40mg Take 1 capsule by mouth daily. [facility] tacrolimus 0.5 mg capsule 10-18 00:00: 00 10-14 00:00 :00 No .5mg Take 1 capsule by mouth every evening. z94.0 [facility] tacrolimus 1 mg capsule 10-18 00:00: 00 10-14 00:00 :00 No 1mg Take 1 capsule by mouth every 12 (twelve) hours. z94.0 [facility] furosemide (LASIX) 20 mg tablet 4-19 00:00: 00 12-06 00:00 :00 No [id number] 20mg Take 1 tablet by mouth daily. Or as needed for swelling. [facility] citalopram 20 mg tablet 4-13 00:00: 00 07-09 00:00 :00 No [id number] TAKE 1 TABLET BY MOUTH ONCE DAILY FOR 90 DAYS [facility] enalapril 2.5 mg tablet 4-10 00:00: 00 01-16 00:00 :00 No TAKE ONE (1) TABLET(S) BY MOUTH IN THE EVENING. [facility] atorvastati n 80 mg tablet 3-31 00:00: 00 01-07 00:00 :00 No 80mg Take 1 tablet by mouth at bedtime. [facility] acyclovir 200 mg capsule 2-03 00:00: 00 07-16 00:00 :00 No [id number] Patient to take TWO 200 mg tabs BID to equal an 800 mg daily dose. [facility] gabapentin 100 mg capsule 1- 00:00: 00 08-22 00:00 :00 No [id number] 300mg Take 3 capsules by mouth at bedtime. [facility] hydrocortis one 10 mg tablet 04-02 00:00: 00 01-08 00:00 :00 No [id number] TAKE 2 TABLETS BY MOUTH ONCE DAILY IN THE MORNING AND 1 TABLET AROUND 3PM [facility] methocarbam oL 500 mg tablet 2019-03 00:00: 00 08-22 00:00 :00 No [id number] 500mg Take 1 tablet by mouth 4 (four) times daily as needed (muscle spasm). [facility] MYCOPHENOLA TE 250 mg capsule 2019-03 00:00: 00 01-16 00:00 :00 No TAKE 2 CAPSULES BY MOUTH EVERY 12 HOURS*Z94. 0* [facility] Flexeril 2019-03 03:29: 00 No Notes: (Same As: Flexeril) Konstnatin Gracia Benadryl 2019-03 02:05: 00 No 25 mg, Route: IVP, ONCE, Dosing Weight 72.727, kg, Priority: STAT, Start date: 02/15/20 20:05:00 [employer], Stop date: 02/15/20 20:05:00 [employer] Konstantin Gracia Acetaminoph en 325 MG / Hydrocodone Bitartrate 10 MG Oral Tablet [[place] 10/325] 2020-1 1-19 01:03: 00 No 1 tab, Route: PO, Drug Form: TAB, Dosing Weight 72.727, kg, ONCE, STAT, Start date: 02/15/20 19:03:00 [employer]LET[employer] DIRECT[employer], Stop date: 02/15/20 19:03:00 [employer] DIRECT[employer] Konstantin Gracia Saline Flush 0.9% 2019-03 23:05: 00 No Notes: Same as: BD Posiflush Sterile Konstantin Gracia cefepime 2019-03 23:05: 00 No Notes: (Same as: Maxipime) MEDICATION WASTE Product Size: 2000 mg Product Wasted: ___ mg Konstantin Gracia Vancomycin 2019-03 23:05: 00 No 2000 mg: infuse over 2.5 hours For adult patients only: Round to nearest 250 mg per Medical Staff approval MEDICATION WASTE Product Size: 1000 mg Product Wasted: ___ mg Konstantin Gracia docusate 100 mg capsule 2019-03 00:00: 00 11-05 00:00 :00 No [id number] 100mg Take 1 capsule by mouth daily. [facility] metoprolol tartrate 25 mg tablet 2019-03 00:00: 00 08-22 00:00 :00 No [id number] 25mg Take 1 tablet by mouth every 12 (twelve) hours. [facility] SYNTHROID 50 mcg tablet 10-11 00:00: 00 07-16 00:00 :00 No [id number] 50ug Take 1 tablet by mouth every morning. Brand name only [facility] tacrolimus (PROGRAF) 1 mg capsule 09-28 00:00: 00 09-26 00:00 :00 No 1mg Take 1 capsule by mouth every 12 (twelve) hours. Z94.0:gene reyna permitted Indication s: Z94.0 Generic Name Permitted [facility] furosemide (LASIX) 20 mg tablet 05-17 00:00: 00 07-16 00:00 :00 No [id number] 20mg Take 1 tablet by mouth daily. Or as needed for swelling. [facility] fluticasone 50 mcg/actuati on nasal spray 08-30 00:00: 00 08-11 00:00 :00 No [id number] 1{spray } Use 1 Magna in each nostril 2 (two) times daily. [facility] Magnesium Oxide-Mg AA Chelate (MG-PLUS-ND OTEIN) 133 mg Tab tablet 08-08 00:00: 00 06-24 00:00 :00 No [id number] 133mg Take 1 tablet by mouth daily. [facility] Blood-Gluco se Meter (ONE TOUCH BASIC SYSTEM) Kit 2011-03 00:00: 00 Yes Patient tests blood glucose one time day [facility] Blood-Gluco se Meter (ONE TOUCH BASIC SYSTEM) Kit 2011-03 00:00: 00 12-14 00:00 :00 No Patient tests blood glucose one time day [facility] blood sugar diagnostic (FREESTYLE LITE STRIPS) strip 2011-03 00:00: 00 Yes [id number] Patient test one time per day [facility] blood sugar diagnostic (FREESTYLE LITE STRIPS) strip 2011-03 00:00: 00 12-14 00:00 :00 No [id number] Patient test one time per day [facility] ASPIRIN 81 MG ORAL CHEW 12-06 00:00: 00 08-11 00:00 :00 No 1 Tab Oral DAILY [facility] Immunizations Ordered Immunization Name Filled Immunization Name Date Status Comments Source Flu Injectable MDCK Pres-Free (FLUCELVAX) 2023-12-15 00:00:00 Completed [facility] Flu Injectable MDCK Pres-Free (FLUCELVAX) 2023-12-15 00:00:00 Completed [facility] Influenza Virus Vaccine Quad IM, Preserv and ABX Free 6 MO-64 YRS 2022-02-03 00:00:00 Completed [facility] Influenza Virus Vaccine Quad IM, Preserv and ABX Free 6 MO-64 YRS 2022-02-03 00:00:00 Completed [facility] Influenza Virus Vaccine Quad IM, Preserv and ABX Free 6 MO-64 YRS 2022-02-03 00:00:00 Completed [facility] Influenza Virus Vaccine Quad IM, Preserv and ABX Free 6 MO-64 YRS 2022-02-03 00:00:00 Completed [facility] Influenza Virus Vaccine Quad IM, Preserv and ABX Free 6 MO-64 YRS 2022-02-03 00:00:00 Completed [facility] Influenza Virus Vaccine Quad IM, Preserv and ABX Free 6 MO-64 YRS 2022-02-03 00:00:00 Completed [facility] Influenza Virus Vaccine Quad IM, Preserv and ABX Free 6 MO-64 YRS 2022-02-03 00:00:00 Completed [facility] Influenza Virus Vaccine Quad IM, Preserv and ABX Free 6 MO-64 YRS 2022-02-03 00:00:00 Completed [facility] Influenza Virus Vaccine Quad IM, Preserv and ABX Free 6 MO-64 YRS 2022-02-03 00:00:00 Completed [facility] Influenza Virus Vaccine Quad IM, Preserv and ABX Free 6 MO-64 YRS 2022-02-03 00:00:00 Completed [facility] Influenza Virus Vaccine Quad IM, Preserv and ABX Free 6 MO-64 YRS 2022-02-03 00:00:00 Completed [facility] Influenza Virus Vaccine Quad IM, Preserv and ABX Free -64 YRS 2022-02-03 00:00:00 Completed [facility] Influenza Virus Vaccine Quad IM, Preserv and ABX Free 6 MO-64 YRS 2022-02-03 00:00:00 Completed [facility] Influenza Virus Vaccine Quad IM, Preserv and ABX Free 6 MO-64 YRS 2022-02-03 00:00:00 Completed [facility] Influenza Virus Vaccine Quad IM, Preserv and ABX Free 6 MO-64 YRS 2022-02-03 00:00:00 Completed [facility] Influenza Virus Vaccine Quad IM, Preserv and ABX Free 6 MO-64 YRS 2022-02-03 00:00:00 Completed [facility] Influenza Virus Vaccine Quad IM, Preserv and ABX Free 6 MO-64 YRS 2022-02-03 00:00:00 Completed [facility] Influenza Virus Vaccine Quad IM, Preserv and ABX Free 6 MO-64 YRS 2022-02-03 00:00:00 Completed [facility] Influenza Virus Vaccine Quad IM, Preserv and ABX Free 6 MO-64 YRS 2022-02-03 00:00:00 Completed [facility] Influenza Virus Vaccine Quad IM, Preserv and ABX Free 6 MO-64 YRS 2022-02-03 00:00:00 Completed [facility] Influenza Virus Vaccine Quad IM, Preserv and ABX Free 6 MO-64 YRS 2022-02-03 00:00:00 Completed [facility] Influenza Virus Vaccine Quad IM, Preserv and ABX Free 6 MO-64 YRS 2022-02-03 00:00:00 Completed [facility] Influenza Virus Vaccine Quad IM, Preserv and ABX Free 6 MO-64 YRS 2022-02-03 00:00:00 Completed [facility] Influenza Virus Vaccine Quad IM, Preserv and ABX Free 6 MO-64 YRS 2022-02-03 00:00:00 Completed [facility] Influenza Virus Vaccine Quad IM, Preserv and ABX Free 6 MO-64 YRS 2022-02-03 00:00:00 Completed [facility] Influenza Virus Vaccine Quad IM, Preserv and ABX Free 6 MO-64 YRS 2022-02-03 00:00:00 Completed [facility] Influenza Virus Vaccine Quad IM, Preserv and ABX Free 6 MO-64 YRS 2022-02-03 00:00:00 Completed [facility] Influenza Virus Vaccine Quad IM, Preserv and ABX Free 6 MO-64 YRS 2022-02-03 00:00:00 Completed [facility] Influenza Virus Vaccine Quad IM, Preserv and ABX Free 6 MO-64 YRS 2022-02-03 00:00:00 Completed [facility] Influenza Virus Vaccine Quad IM, Preserv and ABX Free 6 MO-64 YRS 2022-02-03 00:00:00 Completed [facility] Influenza Virus Vaccine Quad IM, Preserv and ABX Free 6 MO-64 YRS 2022-02-03 00:00:00 Completed [facility] Influenza Virus Vaccine Quad IM, Preserv and ABX Free 6 MO-64 YRS 2022-02-03 00:00:00 Completed [facility] Influenza Virus Vaccine Quad IM, Preserv and ABX Free 6 MO-64 YRS 2022-02-03 00:00:00 Completed [facility] Influenza Virus Vaccine Quad IM, Preserv and ABX Free 6 MO-64 YRS 2022-02-03 00:00:00 Completed [facility] Influenza Virus Vaccine Quad IM, Preserv and ABX Free 6 MO-64 YRS 2022-02-03 00:00:00 Completed [facility] Influenza Virus Vaccine Quad IM, Preserv and ABX Free 6 MO-64 YRS 2022-02-03 00:00:00 Completed [facility] Influenza Virus Vaccine Quad IM, Preserv and ABX Free 6 MO-64 YRS 2022-02-03 00:00:00 Completed [facility] Influenza Virus Vaccine Quad IM, Preserv and ABX Free 6 MO-64 YRS 2022-02-03 00:00:00 Completed [facility] Influenza Virus Vaccine Quad IM, Preserv and ABX Free 6 MO-64 YRS 2022-02-03 00:00:00 Completed [facility] Influenza Virus Vaccine Quad IM, Preserv and ABX Free 6 MO-64 YRS 2022-02-03 00:00:00 Completed [facility] Influenza Virus Vaccine Quad IM, Preserv and ABX Free 6 MO-64 YRS 2022-02-03 00:00:00 Completed [facility] Influenza Virus Vaccine Quad IM, Preserv and ABX Free MO-64 YRS 2022-02-03 00:00:00 Completed [facility] Influenza Virus Vaccine Quad IM, Preserv and ABX Free 6 MO-64 YRS 2022-02-03 00:00:00 Completed [facility] Influenza Virus Vaccine Quad IM, Preserv and ABX Free 6 MO-64 YRS 2022-02-03 00:00:00 Completed [facility] Influenza Virus Vaccine Quad IM, Preserv and ABX Free 6 MO-64 YRS 2022-02-03 00:00:00 Completed [facility] Influenza Virus Vaccine Quad IM, Preserv and ABX Free 6 MO-64 YRS 2022-02-03 00:00:00 Completed [facility] Influenza Virus Vaccine Quad IM, Preserv and ABX Free 6 MO-64 2022-02-03 00:00:00 Completed [facility] Influenza Virus Vaccine Quad IM, Preserv and ABX Free 6 MO-64 YRS 2022-02-03 00:00:00 Completed [facility] Influenza Virus Vaccine Quad IM, Preserv and ABX Free 6 MO-64 YRS 2022-02-03 00:00:00 Completed [facility] Influenza Virus Vaccine Quad IM, Preserv and ABX Free 6 MO-64 YRS 2022-02-03 00:00:00 Completed [facility] Influenza Virus Vaccine Quad IM, Preserv and ABX Free 6 MO-64 YRS 2022-02-03 00:00:00 Completed [facility] Influenza Virus Vaccine Quad IM, Preserv and ABX Free 6 MO-64 YRS 2022-02-03 00:00:00 Completed [facility] Influenza Virus Vaccine Quad IM, Preserv and ABX Free 6 MO-64 YRS 2022-02-03 00:00:00 Completed [facility] Influenza Virus Vaccine Quad IM, Preserv and ABX Free 6 MO-64 YRS 2022-02-03 00:00:00 Completed [facility] Influenza Virus Vaccine Quad IM, Preserv and ABX Free 6 MO-64 YRS 2022-02-03 00:00:00 Completed [facility] Influenza Virus Vaccine Quad IM, Preserv and ABX Free MO-64 2022-02-03 00:00:00 Completed [facility] Influenza Virus Vaccine Quad IM, Preserv and ABX Free 6 MO-64 YRS 2022-02-03 00:00:00 Completed [facility] Influenza Virus Vaccine Quad IM, Preserv and ABX Free 6 MO-64 YRS 2022-02-03 00:00:00 Completed [facility] Influenza Virus Vaccine Quad IM, Preserv and ABX Free 6 MO-64 YRS 2022-02-03 00:00:00 Completed [facility] Influenza Virus Vaccine Quad IM, Preserv and ABX Free MO-64 YRS 2022-02-03 00:00:00 Completed [facility] Influenza Virus Vaccine Quad IM, Preserv and ABX Free 6 MO-64 YRS 2022-02-03 00:00:00 Completed [facility] Influenza Virus Vaccine Quad IM, Preserv and ABX Free 6 MO-64 YRS 2022-02-03 00:00:00 Completed [facility] Influenza Virus Vaccine Quad IM, Preserv and ABX Free 6 MO-64 YRS 2022-02-03 00:00:00 Completed [facility] Influenza Virus Vaccine Quad IM, Preserv and ABX Free 6 MO-64 YRS 2022-02-03 00:00:00 Completed [facility] Influenza Virus Vaccine Quad IM, Preserv and ABX Free 6 MO-64 YRS 2022-02-03 00:00:00 Completed [facility] Influenza Virus Vaccine Quad IM, Preserv and ABX Free 6 MO-64 YRS 2022-02-03 00:00:00 Completed [facility] Influenza Virus Vaccine Quad IM, Preserv and ABX Free 6 MO-64 YRS 2022-02-03 00:00:00 Completed [facility] Influenza Virus Vaccine Quad IM, Preserv and ABX Free 6 MO-64 YRS (FLUCELVAX) 2022-02-03 00:00:00 Completed [facility] Influenza Virus Vaccine Quad IM, Preserv and ABX Free 6 MO-64 YRS (FLUCELVAX) 2022-02-03 00:00:00 Completed [facility] SARS-COV-2 COVID-19 PFIZER VACCINE 2020-12-04 00:00:00 Completed [facility] SARS-COV-2 COVID-19 PFIZER VACCINE 2020-12-04 00:00:00 Completed [facility] SARS-COV-2 COVID-19 PFIZER VACCINE 2020-12-04 00:00:00 Completed [facility] SARS-COV-2 COVID-19 PFIZER VACCINE 2020-12-04 00:00:00 Completed [facility] SARS-COV-2 COVID-19 PFIZER VACCINE 2020-12-04 00:00:00 Completed [facility] SARS-COV-2 COVID-19 PFIZER VACCINE 2020-12-04 00:00:00 Completed [facility] SARS-COV-2 COVID-19 PFIZER VACCINE 2020-12-04 00:00:00 Completed [facility] SARS-COV-2 COVID-19 PFIZER VACCINE 2020-12-04 00:00:00 Completed [facility] SARS-COV-2 COVID-19 PFIZER VACCINE 2020-12-04 00:00:00 Completed [facility] SARS-COV-2 COVID-19 PFIZER VACCINE 2020-12-04 00:00:00 Completed [facility] SARS-COV-2 COVID-19 PFIZER VACCINE 2020-12-04 00:00:00 Completed [facility] SARS-COV-2 COVID-19 PFIZER VACCINE 2020-12-04 00:00:00 Completed [facility] SARS-COV-2 COVID-19 PFIZER VACCINE 2020-12-04 00:00:00 Completed [facility] SARS-COV-2 COVID-19 PFIZER VACCINE 2020-12-04 00:00:00 Completed [facility] SARS-COV-2 COVID-19 PFIZER VACCINE 2020-12-04 00:00:00 Completed [facility] SARS-COV-2 COVID-19 PFIZER VACCINE 2020-12-04 00:00:00 Completed [facility] SARS-COV-2 COVID-19 PFIZER VACCINE 2020-12-04 00:00:00 Completed [facility] SARS-COV-2 COVID-19 PFIZER VACCINE 2020-12-04 00:00:00 Completed [facility] SARS-COV-2 COVID-19 PFIZER VACCINE 2020-12-04 00:00:00 Completed [facility] SARS-COV-2 COVID-19 PFIZER VACCINE 2020-12-04 00:00:00 Completed [facility] SARS-COV-2 COVID-19 PFIZER VACCINE 2020-12-04 00:00:00 Completed [facility] SARS-COV-2 COVID-19 PFIZER VACCINE 2020-12-04 00:00:00 Completed [facility] SARS-COV-2 COVID-19 PFIZER VACCINE 2020-12-04 00:00:00 Completed [facility] SARS-COV-2 COVID-19 PFIZER VACCINE 2020-12-04 00:00:00 Completed [facility] SARS-COV-2 COVID-19 PFIZER VACCINE 2020-12-04 00:00:00 Completed [facility] SARS-COV-2 COVID-19 PFIZER VACCINE 2020-12-04 00:00:00 Completed [facility] SARS-COV-2 COVID-19 PFIZER VACCINE 2020-12-04 00:00:00 Completed [facility] SARS-COV-2 COVID-19 PFIZER VACCINE 2020-12-04 00:00:00 Completed [facility] SARS-COV-2 COVID-19 PFIZER VACCINE 2020-12-04 00:00:00 Completed [facility] SARS-COV-2 COVID-19 PFIZER VACCINE 2020-12-04 00:00:00 Completed [facility] SARS-COV-2 COVID-19 PFIZER VACCINE 2020-12-04 00:00:00 Completed [facility] SARS-COV-2 COVID-19 PFIZER VACCINE 2020-12-04 00:00:00 Completed [facility] SARS-COV-2 COVID-19 PFIZER VACCINE 2020-12-04 00:00:00 Completed [facility] SARS-COV-2 COVID-19 PFIZER VACCINE 2020-12-04 00:00:00 Completed [facility] SARS-COV-2 COVID-19 PFIZER VACCINE 2020-12-04 00:00:00 Completed [facility] SARS-COV-2 COVID-19 PFIZER VACCINE 2020-12-04 00:00:00 Completed [facility] SARS-COV-2 COVID-19 PFIZER VACCINE 2020-12-04 00:00:00 Completed [facility] SARS-COV-2 COVID-19 PFIZER VACCINE 2020-12-04 00:00:00 Completed [facility] SARS-COV-2 COVID-19 PFIZER VACCINE 2020-12-04 00:00:00 Completed [facility] SARS-COV-2 COVID-19 PFIZER VACCINE 2020-12-04 00:00:00 Completed [facility] SARS-COV-2 COVID-19 PFIZER VACCINE 2020-12-04 00:00:00 Completed [facility] SARS-COV-2 COVID-19 PFIZER VACCINE 2020-12-04 00:00:00 Completed [facility] SARS-COV-2 COVID-19 PFIZER VACCINE 2020-12-04 00:00:00 Completed [facility] SARS-COV-2 COVID-19 PFIZER VACCINE 2020-12-04 00:00:00 Completed [facility] SARS-COV-2 COVID-19 PFIZER VACCINE 2020-12-04 00:00:00 Completed [facility] SARS-COV-2 COVID-19 PFIZER VACCINE 2020-12-04 00:00:00 Completed [facility] SARS-COV-2 COVID-19 PFIZER VACCINE 2020-12-04 00:00:00 Completed [facility] SARS-COV-2 COVID-19 PFIZER VACCINE 2020-12-04 00:00:00 Completed [facility] SARS-COV-2 COVID-19 PFIZER VACCINE 2020-12-04 00:00:00 Completed [facility] SARS-COV-2 COVID-19 PFIZER VACCINE 2020-12-04 00:00:00 Completed [facility] SARS-COV-2 COVID-19 PFIZER VACCINE 2020-12-04 00:00:00 Completed [facility] SARS-COV-2 COVID-19 PFIZER VACCINE 2020-12-04 00:00:00 Completed [facility] SARS-COV-2 COVID-19 PFIZER VACCINE 2020-12-04 00:00:00 Completed [facility] SARS-COV-2 COVID-19 PFIZER VACCINE 2020-12-04 00:00:00 Completed [facility] SARS-COV-2 COVID-19 PFIZER VACCINE 2020-12-04 00:00:00 Completed [facility] SARS-COV-2 COVID-19 PFIZER VACCINE 2020-12-04 00:00:00 Completed [facility] SARS-COV-2 COVID-19 PFIZER VACCINE 2020-12-04 00:00:00 Completed [facility] SARS-COV-2 COVID-19 PFIZER VACCINE 2020-12-04 00:00:00 Completed [facility] SARS-COV-2 COVID-19 PFIZER VACCINE 2020-12-04 00:00:00 Completed [facility] SARS-COV-2 COVID-19 PFIZER VACCINE 2020-12-04 00:00:00 Completed [facility] SARS-COV-2 COVID-19 PFIZER VACCINE 2020-12-04 00:00:00 Completed [facility] SARS-COV-2 COVID-19 PFIZER VACCINE 2020-12-04 00:00:00 Completed [facility] SARS-COV-2 COVID-19 PFIZER VACCINE 2020-12-04 00:00:00 Completed [facility] SARS-COV-2 COVID-19 PFIZER VACCINE 2020-12-04 00:00:00 Completed [facility] SARS-COV-2 COVID-19 PFIZER VACCINE 2020-12-04 00:00:00 Completed [facility] SARS-COV-2 COVID-19 PFIZER VACCINE 2020-12-04 00:00:00 Completed [facility] SARS-COV-2 COVID-19 PFIZER VACCINE 2020-12-04 00:00:00 Completed [facility] SARS-COV-2 COVID-19 PFIZER VACCINE 2020-12-04 00:00:00 Completed [facility] SARS-COV-2 COVID-19 PFIZER VACCINE 2020-12-04 00:00:00 Completed [facility] SARS-COV-2 COVID-19 PFIZER VACCINE 2020-12-04 00:00:00 Completed [facility] SARS-COV-2 COVID-19 PFIZER VACCINE 2020-12-04 00:00:00 Completed [facility] SARS-COV-2 COVID-19 PFIZER VACCINE 2020-12-04 00:00:00 Completed [facility] SARS-COV-2 COVID-19 PFIZER VACCINE 2020-12-04 00:00:00 Completed [facility] SARS-COV-2 COVID-19 PFIZER VACCINE 2020-12-04 00:00:00 Completed [facility] SARS-COV-2 COVID-19 PFIZER VACCINE 2020-12-04 00:00:00 Completed [facility] SARS-COV-2 COVID-19 PFIZER VACCINE 2020-12-04 00:00:00 Completed [facility] SARS-COV-2 COVID-19 PFIZER VACCINE 2020-12-04 00:00:00 Completed [facility] SARS-COV-2 COVID-19 PFIZER VACCINE 2020-12-04 00:00:00 Completed [facility] SARS-COV-2 COVID-19 PFIZER VACCINE 2020-12-04 00:00:00 Completed [facility] SARS-COV-2 COVID-19 PFIZER VACCINE 2020-12-04 00:00:00 Completed [facility] SARS-COV-2 COVID-19 PFIZER VACCINE 2020-12-04 00:00:00 Completed [facility] SARS-COV-2 COVID-19 PFIZER VACCINE 2020-06-16 00:00:00 Completed [facility] SARS-COV-2 COVID-19 PFIZER VACCINE 2020-06-16 00:00:00 Completed [facility] SARS-COV-2 COVID-19 PFIZER VACCINE 2020-06-16 00:00:00 Completed [facility] SARS-COV-2 COVID-19 PFIZER VACCINE 2020-06-16 00:00:00 Completed [facility] SARS-COV-2 COVID-19 PFIZER VACCINE 2020-06-16 00:00:00 Completed [facility] SARS-COV-2 COVID-19 PFIZER VACCINE 2020-06-16 00:00:00 Completed [facility] SARS-COV-2 COVID-19 PFIZER VACCINE 2020-06-16 00:00:00 Completed [facility] SARS-COV-2 COVID-19 PFIZER VACCINE 2020-06-16 00:00:00 Completed [facility] SARS-COV-2 COVID-19 PFIZER VACCINE 2020-06-16 00:00:00 Completed [facility] SARS-COV-2 COVID-19 PFIZER VACCINE 2020-06-16 00:00:00 Completed [facility] SARS-COV-2 COVID-19 PFIZER VACCINE 2020-06-16 00:00:00 Completed [facility] SARS-COV-2 COVID-19 PFIZER VACCINE 2020-06-16 00:00:00 Completed [facility] SARS-COV-2 COVID-19 PFIZER VACCINE 2020-06-16 00:00:00 Completed [facility] SARS-COV-2 COVID-19 PFIZER VACCINE 2020-06-16 00:00:00 Completed [facility] SARS-COV-2 COVID-19 PFIZER VACCINE 2020-06-16 00:00:00 Completed [facility] SARS-COV-2 COVID-19 PFIZER VACCINE 2020-06-16 00:00:00 Completed [facility] SARS-COV-2 COVID-19 PFIZER VACCINE 2020-06-16 00:00:00 Completed [facility] SARS-COV-2 COVID-19 PFIZER VACCINE 2020-06-16 00:00:00 Completed [facility] SARS-COV-2 COVID-19 PFIZER VACCINE 2020-06-16 00:00:00 Completed [facility] SARS-COV-2 COVID-19 PFIZER VACCINE 2020-06-16 00:00:00 Completed [facility] SARS-COV-2 COVID-19 PFIZER VACCINE 2020-06-16 00:00:00 Completed [facility] SARS-COV-2 COVID-19 PFIZER VACCINE 2020-06-16 00:00:00 Completed [facility] SARS-COV-2 COVID-19 PFIZER VACCINE 2020-06-16 00:00:00 Completed [facility] SARS-COV-2 COVID-19 PFIZER VACCINE 2020-06-16 00:00:00 Completed [facility] SARS-COV-2 COVID-19 PFIZER VACCINE 2020-06-16 00:00:00 Completed [facility] SARS-COV-2 COVID-19 PFIZER VACCINE 2020-06-16 00:00:00 Completed [facility] SARS-COV-2 COVID-19 PFIZER VACCINE 2020-06-16 00:00:00 Completed [facility] SARS-COV-2 COVID-19 PFIZER VACCINE 2020-06-16 00:00:00 Completed [facility] SARS-COV-2 COVID-19 PFIZER VACCINE 2020-06-16 00:00:00 Completed [facility] SARS-COV-2 COVID-19 PFIZER VACCINE 2020-06-16 00:00:00 Completed [facility] SARS-COV-2 COVID-19 PFIZER VACCINE 2020-06-16 00:00:00 Completed [facility] SARS-COV-2 COVID-19 PFIZER VACCINE 2020-06-16 00:00:00 Completed [facility] SARS-COV-2 COVID-19 PFIZER VACCINE 2020-06-16 00:00:00 Completed [facility] SARS-COV-2 COVID-19 PFIZER VACCINE 2020-06-16 00:00:00 Completed [facility] SARS-COV-2 COVID-19 PFIZER VACCINE 2020-06-16 00:00:00 Completed [facility] SARS-COV-2 COVID-19 PFIZER VACCINE 2020-06-16 00:00:00 Completed [facility] SARS-COV-2 COVID-19 PFIZER VACCINE 2020-06-16 00:00:00 Completed [facility] SARS-COV-2 COVID-19 PFIZER VACCINE 2020-06-16 00:00:00 Completed [facility] SARS-COV-2 COVID-19 PFIZER VACCINE 2020-06-16 00:00:00 Completed [facility] SARS-COV-2 COVID-19 PFIZER VACCINE 2020-06-16 00:00:00 Completed [facility] SARS-COV-2 COVID-19 PFIZER VACCINE 2020-06-16 00:00:00 Completed [facility] SARS-COV-2 COVID-19 PFIZER VACCINE 2020-06-16 00:00:00 Completed [facility] SARS-COV-2 COVID-19 PFIZER VACCINE 2020-06-16 00:00:00 Completed [facility] SARS-COV-2 COVID-19 PFIZER VACCINE 2020-06-16 00:00:00 Completed [facility] SARS-COV-2 COVID-19 PFIZER VACCINE 2020-06-16 00:00:00 Completed [facility] SARS-COV-2 COVID-19 PFIZER VACCINE 2020-06-16 00:00:00 Completed [facility] SARS-COV-2 COVID-19 PFIZER VACCINE 2020-06-16 00:00:00 Completed [facility] SARS-COV-2 COVID-19 PFIZER VACCINE 2020-06-16 00:00:00 Completed [facility] SARS-COV-2 COVID-19 PFIZER VACCINE 2020-06-16 00:00:00 Completed [facility] SARS-COV-2 COVID-19 PFIZER VACCINE 2020-06-16 00:00:00 Completed [facility] SARS-COV-2 COVID-19 PFIZER VACCINE 2020-06-16 00:00:00 Completed [facility] SARS-COV-2 COVID-19 PFIZER VACCINE 2020-06-16 00:00:00 Completed [facility] SARS-COV-2 COVID-19 PFIZER VACCINE 2020-06-16 00:00:00 Completed [facility] SARS-COV-2 COVID-19 PFIZER VACCINE 2020-06-16 00:00:00 Completed [facility] SARS-COV-2 COVID-19 PFIZER VACCINE 2020-06-16 00:00:00 Completed [facility] SARS-COV-2 COVID-19 PFIZER VACCINE 2020-06-16 00:00:00 Completed [facility] SARS-COV-2 COVID-19 PFIZER VACCINE 2020-06-16 00:00:00 Completed [facility] SARS-COV-2 COVID-19 PFIZER VACCINE 2020-06-16 00:00:00 Completed [facility] SARS-COV-2 COVID-19 PFIZER VACCINE 2020-06-16 00:00:00 Completed [facility] SARS-COV-2 COVID-19 PFIZER VACCINE 2020-06-16 00:00:00 Completed [facility] SARS-COV-2 COVID-19 PFIZER VACCINE 2020-06-16 00:00:00 Completed [facility] SARS-COV-2 COVID-19 PFIZER VACCINE 2020-06-16 00:00:00 Completed [facility] SARS-COV-2 COVID-19 PFIZER VACCINE 2020-06-16 00:00:00 Completed [facility] SARS-COV-2 COVID-19 PFIZER VACCINE 2020-06-16 00:00:00 Completed [facility] SARS-COV-2 COVID-19 PFIZER VACCINE 2020-06-16 00:00:00 Completed [facility] SARS-COV-2 COVID-19 PFIZER VACCINE 2020-06-16 00:00:00 Completed [facility] SARS-COV-2 COVID-19 PFIZER VACCINE 2020-06-16 00:00:00 Completed [facility] SARS-COV-2 COVID-19 PFIZER VACCINE 2020-06-16 00:00:00 Completed [facility] SARS-COV-2 COVID-19 PFIZER VACCINE 2020-06-16 00:00:00 Completed [facility] SARS-COV-2 COVID-19 PFIZER VACCINE 2020-06-16 00:00:00 Completed [facility] SARS-COV-2 COVID-19 PFIZER VACCINE 2020-06-16 00:00:00 Completed [facility] SARS-COV-2 COVID-19 PFIZER VACCINE 2020-06-16 00:00:00 Completed [facility] SARS-COV-2 COVID-19 PFIZER VACCINE 2020-06-16 00:00:00 Completed [facility] SARS-COV-2 COVID-19 PFIZER VACCINE 2020-06-16 00:00:00 Completed [facility] SARS-COV-2 COVID-19 PFIZER VACCINE 2020-06-16 00:00:00 Completed [facility] SARS-COV-2 COVID-19 PFIZER VACCINE 2020-06-16 00:00:00 Completed [facility] SARS-COV-2 COVID-19 PFIZER VACCINE 2020-06-16 00:00:00 Completed [facility] SARS-COV-2 COVID-19 PFIZER VACCINE 2020-06-16 00:00:00 Completed [facility] SARS-COV-2 COVID-19 PFIZER VACCINE 2020-06-16 00:00:00 Completed [facility] SARS-COV-2 COVID-19 PFIZER VACCINE 2020-06-16 00:00:00 Completed [facility] SARS-COV-2 COVID-19 PFIZER VACCINE 2020-06-16 00:00:00 Completed [facility] SARS-COV-2 COVID-19 PFIZER VACCINE 2020-05-26 00:00:00 Completed [facility] SARS-COV-2 COVID-19 PFIZER VACCINE 2020-05-26 00:00:00 Completed [facility] SARS-COV-2 COVID-19 PFIZER VACCINE 2020-05-26 00:00:00 Completed [facility] SARS-COV-2 COVID-19 PFIZER VACCINE 2020-05-26 00:00:00 Completed [facility] SARS-COV-2 COVID-19 PFIZER VACCINE 2020-05-26 00:00:00 Completed [facility] SARS-COV-2 COVID-19 PFIZER VACCINE 2020-05-26 00:00:00 Completed [facility] SARS-COV-2 COVID-19 PFIZER VACCINE 2020-05-26 00:00:00 Completed [facility] SARS-COV-2 COVID-19 PFIZER VACCINE 2020-05-26 00:00:00 Completed [facility] SARS-COV-2 COVID-19 PFIZER VACCINE 2020-05-26 00:00:00 Completed [facility] SARS-COV-2 COVID-19 PFIZER VACCINE 2020-05-26 00:00:00 Completed [facility] SARS-COV-2 COVID-19 PFIZER VACCINE 2020-05-26 00:00:00 Completed [facility] SARS-COV-2 COVID-19 PFIZER VACCINE 2020-05-26 00:00:00 Completed [facility] SARS-COV-2 COVID-19 PFIZER VACCINE 2020-05-26 00:00:00 Completed [facility] SARS-COV-2 COVID-19 PFIZER VACCINE 2020-05-26 00:00:00 Completed [facility] SARS-COV-2 COVID-19 PFIZER VACCINE 2020-05-26 00:00:00 Completed [facility] SARS-COV-2 COVID-19 PFIZER VACCINE 2020-05-26 00:00:00 Completed [facility] SARS-COV-2 COVID-19 PFIZER VACCINE 2020-05-26 00:00:00 Completed [facility] SARS-COV-2 COVID-19 PFIZER VACCINE 2020-05-26 00:00:00 Completed [facility] SARS-COV-2 COVID-19 PFIZER VACCINE 2020-05-26 00:00:00 Completed [facility] SARS-COV-2 COVID-19 PFIZER VACCINE 2020-05-26 00:00:00 Completed [facility] SARS-COV-2 COVID-19 PFIZER VACCINE 2020-05-26 00:00:00 Completed [facility] SARS-COV-2 COVID-19 PFIZER VACCINE 2020-05-26 00:00:00 Completed [facility] SARS-COV-2 COVID-19 PFIZER VACCINE 2020-05-26 00:00:00 Completed [facility] SARS-COV-2 COVID-19 PFIZER VACCINE 2020-05-26 00:00:00 Completed [facility] SARS-COV-2 COVID-19 PFIZER VACCINE 2020-05-26 00:00:00 Completed [facility] SARS-COV-2 COVID-19 PFIZER VACCINE 2020-05-26 00:00:00 Completed [facility] SARS-COV-2 COVID-19 PFIZER VACCINE 2020-05-26 00:00:00 Completed [facility] SARS-COV-2 COVID-19 PFIZER VACCINE 2020-05-26 00:00:00 Completed [facility] SARS-COV-2 COVID-19 PFIZER VACCINE 2020-05-26 00:00:00 Completed [facility] SARS-COV-2 COVID-19 PFIZER VACCINE 2020-05-26 00:00:00 Completed [facility] SARS-COV-2 COVID-19 PFIZER VACCINE 2020-05-26 00:00:00 Completed [facility] SARS-COV-2 COVID-19 PFIZER VACCINE 2020-05-26 00:00:00 Completed [facility] SARS-COV-2 COVID-19 PFIZER VACCINE 2020-05-26 00:00:00 Completed [facility] SARS-COV-2 COVID-19 PFIZER VACCINE 2020-05-26 00:00:00 Completed [facility] SARS-COV-2 COVID-19 PFIZER VACCINE 2020-05-26 00:00:00 Completed [facility] SARS-COV-2 COVID-19 PFIZER VACCINE 2020-05-26 00:00:00 Completed [facility] SARS-COV-2 COVID-19 PFIZER VACCINE 2020-05-26 00:00:00 Completed [facility] SARS-COV-2 COVID-19 PFIZER VACCINE 2020-05-26 00:00:00 Completed [facility] SARS-COV-2 COVID-19 PFIZER VACCINE 2020-05-26 00:00:00 Completed [facility] SARS-COV-2 COVID-19 PFIZER VACCINE 2020-05-26 00:00:00 Completed [facility] SARS-COV-2 COVID-19 PFIZER VACCINE 2020-05-26 00:00:00 Completed [facility] SARS-COV-2 COVID-19 PFIZER VACCINE 2020-05-26 00:00:00 Completed [facility] SARS-COV-2 COVID-19 PFIZER VACCINE 2020-05-26 00:00:00 Completed [facility] SARS-COV-2 COVID-19 PFIZER VACCINE 2020-05-26 00:00:00 Completed [facility] SARS-COV-2 COVID-19 PFIZER VACCINE 2020-05-26 00:00:00 Completed [facility] SARS-COV-2 COVID-19 PFIZER VACCINE 2020-05-26 00:00:00 Completed [facility] SARS-COV-2 COVID-19 PFIZER VACCINE 2020-05-26 00:00:00 Completed [facility] SARS-COV-2 COVID-19 PFIZER VACCINE 2020-05-26 00:00:00 Completed [facility] SARS-COV-2 COVID-19 PFIZER VACCINE 2020-05-26 00:00:00 Completed [facility] SARS-COV-2 COVID-19 PFIZER VACCINE 2020-05-26 00:00:00 Completed [facility] SARS-COV-2 COVID-19 PFIZER VACCINE 2020-05-26 00:00:00 Completed [facility] SARS-COV-2 COVID-19 PFIZER VACCINE 2020-05-26 00:00:00 Completed [facility] SARS-COV-2 COVID-19 PFIZER VACCINE 2020-05-26 00:00:00 Completed [facility] SARS-COV-2 COVID-19 PFIZER VACCINE 2020-05-26 00:00:00 Completed [facility] SARS-COV-2 COVID-19 PFIZER VACCINE 2020-05-26 00:00:00 Completed [facility] SARS-COV-2 COVID-19 PFIZER VACCINE 2020-05-26 00:00:00 Completed [facility] SARS-COV-2 COVID-19 PFIZER VACCINE 2020-05-26 00:00:00 Completed [facility] SARS-COV-2 COVID-19 PFIZER VACCINE 2020-05-26 00:00:00 Completed [facility] SARS-COV-2 COVID-19 PFIZER VACCINE 2020-05-26 00:00:00 Completed [facility] SARS-COV-2 COVID-19 PFIZER VACCINE 2020-05-26 00:00:00 Completed [facility] SARS-COV-2 COVID-19 PFIZER VACCINE 2020-05-26 00:00:00 Completed [facility] SARS-COV-2 COVID-19 PFIZER VACCINE 2020-05-26 00:00:00 Completed [facility] SARS-COV-2 COVID-19 PFIZER VACCINE 2020-05-26 00:00:00 Completed [facility] SARS-COV-2 COVID-19 PFIZER VACCINE 2020-05-26 00:00:00 Completed [facility] SARS-COV-2 COVID-19 PFIZER VACCINE 2020-05-26 00:00:00 Completed [facility] SARS-COV-2 COVID-19 PFIZER VACCINE 2020-05-26 00:00:00 Completed [facility] SARS-COV-2 COVID-19 PFIZER VACCINE 2020-05-26 00:00:00 Completed [facility] SARS-COV-2 COVID-19 PFIZER VACCINE 2020-05-26 00:00:00 Completed [facility] SARS-COV-2 COVID-19 PFIZER VACCINE 2020-05-26 00:00:00 Completed [facility] SARS-COV-2 COVID-19 PFIZER VACCINE 2020-05-26 00:00:00 Completed [facility] SARS-COV-2 COVID-19 PFIZER VACCINE 2020-05-26 00:00:00 Completed [facility] SARS-COV-2 COVID-19 PFIZER VACCINE 2020-05-26 00:00:00 Completed [facility] SARS-COV-2 COVID-19 PFIZER VACCINE 2020-05-26 00:00:00 Completed [facility] SARS-COV-2 COVID-19 PFIZER VACCINE 2020-05-26 00:00:00 Completed [facility] SARS-COV-2 COVID-19 PFIZER VACCINE 2020-05-26 00:00:00 Completed [facility] SARS-COV-2 COVID-19 PFIZER VACCINE 2020-05-26 00:00:00 Completed [facility] SARS-COV-2 COVID-19 PFIZER VACCINE 2020-05-26 00:00:00 Completed [facility] SARS-COV-2 COVID-19 PFIZER VACCINE 2020-05-26 00:00:00 Completed [facility] SARS-COV-2 COVID-19 PFIZER VACCINE 2020-05-26 00:00:00 Completed [facility] SARS-COV-2 COVID-19 PFIZER VACCINE 2020-05-26 00:00:00 Completed [facility] SARS-COV-2 COVID-19 PFIZER VACCINE 2020-05-26 00:00:00 Completed [facility] Influenza Virus Vaccine 2020-01-12 00:00:00 Completed [facility] Influenza Virus Vaccine 2020-01-12 00:00:00 Completed [facility] Influenza Virus Vaccine 2020-01-12 00:00:00 Completed [facility] Influenza Virus Vaccine 2020-01-12 00:00:00 Completed [facility] Influenza Virus Vaccine 2020-01-12 00:00:00 Completed [facility] Influenza Virus Vaccine 2020-01-12 00:00:00 Completed [facility] Influenza Virus Vaccine 2020-01-12 00:00:00 Completed [facility] Influenza Virus Vaccine 2020-01-12 00:00:00 Completed [facility] Influenza Virus Vaccine 2020-01-12 00:00:00 Completed [facility] Influenza Virus Vaccine 2020-01-12 00:00:00 Completed [facility] Influenza Virus Vaccine 2020-01-12 00:00:00 Completed [facility] Influenza Virus Vaccine 2020-01-12 00:00:00 Completed [facility] Influenza Virus Vaccine 2020-01-12 00:00:00 Completed [facility] Influenza Virus Vaccine 2020-01-12 00:00:00 Completed [facility] Influenza Virus Vaccine 2020-01-12 00:00:00 Completed [facility] Influenza Virus Vaccine 2020-01-12 00:00:00 Completed [facility] Influenza Virus Vaccine 2020-01-12 00:00:00 Completed [facility] Influenza Virus Vaccine 2020-01-12 00:00:00 Completed [facility] Influenza Virus Vaccine 2020-01-12 00:00:00 Completed [facility] Influenza Virus Vaccine 2020-01-12 00:00:00 Completed [facility] Influenza Virus Vaccine 2020-01-12 00:00:00 Completed [facility] Influenza Virus Vaccine 2020-01-12 00:00:00 Completed [facility] Influenza Virus Vaccine 2020-01-12 00:00:00 Completed [facility] Influenza Virus Vaccine 2020-01-12 00:00:00 Completed [facility] Influenza Virus Vaccine 2020-01-12 00:00:00 Completed [facility] Influenza Virus Vaccine 2020-01-12 00:00:00 Completed [facility] Influenza Virus Vaccine 2020-01-12 00:00:00 Completed [facility] Influenza Virus Vaccine 2020-01-12 00:00:00 Completed [facility] Influenza Virus Vaccine 2020-01-12 00:00:00 Completed [facility] Influenza Virus Vaccine 2020-01-12 00:00:00 Completed [facility] Influenza Virus Vaccine 2020-01-12 00:00:00 Completed [facility] Influenza Virus Vaccine 2020-01-12 00:00:00 Completed [facility] Influenza Virus Vaccine 2020-01-12 00:00:00 Completed [facility] Influenza Virus Vaccine 2020-01-12 00:00:00 Completed [facility] Influenza Virus Vaccine 2020-01-12 00:00:00 Completed [facility] Influenza Virus Vaccine 2020-01-12 00:00:00 Completed [facility] Influenza Virus Vaccine 2020-01-12 00:00:00 Completed [facility] Influenza Virus Vaccine 2020-01-12 00:00:00 Completed [facility] Influenza Virus Vaccine 2020-01-12 00:00:00 Completed [facility] Influenza Virus Vaccine 2020-01-12 00:00:00 Completed [facility] Influenza Virus Vaccine 2020-01-12 00:00:00 Completed [facility] Influenza Virus Vaccine 2020-01-12 00:00:00 Completed [facility] Influenza Virus Vaccine 2020-01-12 00:00:00 Completed [facility] Influenza Virus Vaccine 2020-01-12 00:00:00 Completed [facility] Influenza Virus Vaccine 2020-01-12 00:00:00 Completed [facility] Influenza Virus Vaccine 2020-01-12 00:00:00 Completed [facility] Influenza Virus Vaccine 2020-01-12 00:00:00 Completed [facility] Influenza Virus Vaccine 2020-01-12 00:00:00 Completed [facility] Influenza Virus Vaccine 2020-01-12 00:00:00 Completed [facility] Influenza Virus Vaccine 2020-01-12 00:00:00 Completed [facility] Influenza Virus Vaccine 2020-01-12 00:00:00 Completed [facility] Influenza Virus Vaccine 2020-01-12 00:00:00 Completed [facility] Influenza Virus Vaccine 2020-01-12 00:00:00 Completed [facility] Influenza Virus Vaccine 2020-01-12 00:00:00 Completed [facility] Influenza Virus Vaccine 2020-01-12 00:00:00 Completed [facility] Influenza Virus Vaccine 2020-01-12 00:00:00 Completed [facility] Influenza Virus Vaccine 2020-01-12 00:00:00 Completed [facility] Influenza Virus Vaccine 2020-01-12 00:00:00 Completed [facility] Influenza Virus Vaccine 2020-01-12 00:00:00 Completed [facility] Influenza Virus Vaccine 2020-01-12 00:00:00 Completed [facility] Influenza Virus Vaccine 2020-01-12 00:00:00 Completed [facility] Influenza Virus Vaccine 2020-01-12 00:00:00 Completed [facility] Influenza Virus Vaccine 2020-01-12 00:00:00 Completed [facility] Influenza Virus Vaccine 2020-01-12 00:00:00 Completed [facility] Influenza Virus Vaccine 2020-01-12 00:00:00 Completed [facility] Influenza Virus Vaccine 2020-01-12 00:00:00 Completed [facility] Influenza Virus Vaccine 2020-01-12 00:00:00 Completed [facility] Influenza Virus Vaccine 2020-01-12 00:00:00 Completed [facility] Influenza Virus Vaccine 2020-01-12 00:00:00 Completed [facility] Influenza Virus Vaccine 2020-01-12 00:00:00 Completed [facility] Influenza Virus Vaccine 2020-01-12 00:00:00 Completed [facility] Influenza Virus Vaccine 2020-01-12 00:00:00 Completed [facility] Influenza Virus Vaccine 2020-01-12 00:00:00 Completed [facility] Influenza Virus Vaccine 2020-01-12 00:00:00 Completed [facility] Influenza Virus Vaccine 2020-01-12 00:00:00 Completed [facility] Influenza Virus Vaccine 2020-01-12 00:00:00 Completed [facility] Influenza Virus Vaccine 2020-01-12 00:00:00 Completed [facility] Influenza Virus Vaccine 2020-01-12 00:00:00 Completed [facility] Influenza Virus Vaccine 2020-01-12 00:00:00 Completed [facility] Influenza Virus Vaccine 2020-01-12 00:00:00 Completed [facility] Influenza Virus Vaccine 2020-01-12 00:00:00 Completed [facility] Influenza Virus Vaccine 2018-01-16 00:00:00 Completed [facility] Influenza Virus Vaccine 2018-01-16 00:00:00 Completed [facility] Influenza Virus Vaccine 2018-01-16 00:00:00 Completed [facility] Influenza Virus Vaccine 2018-01-16 00:00:00 Completed [facility] Influenza Virus Vaccine 2018-01-16 00:00:00 Completed [facility] Influenza Virus Vaccine 2018-01-16 00:00:00 Completed [facility] Influenza Virus Vaccine 2018-01-16 00:00:00 Completed [facility] Influenza Virus Vaccine 2018-01-16 00:00:00 Completed [facility] Influenza Virus Vaccine 2018-01-16 00:00:00 Completed [facility] Influenza Virus Vaccine 2018-01-16 00:00:00 Completed [facility] Influenza Virus Vaccine 2018-01-16 00:00:00 Completed [facility] Influenza Virus Vaccine 2018-01-16 00:00:00 Completed [facility] Influenza Virus Vaccine 2018-01-16 00:00:00 Completed [facility] Influenza Virus Vaccine 2018-01-16 00:00:00 Completed [facility] Influenza Virus Vaccine 2018-01-16 00:00:00 Completed [facility] Influenza Virus Vaccine 2018-01-16 00:00:00 Completed [facility] Influenza Virus Vaccine 2018-01-16 00:00:00 Completed [facility] Influenza Virus Vaccine 2018-01-16 00:00:00 Completed [facility] Influenza Virus Vaccine 2018-01-16 00:00:00 Completed [facility] Influenza Virus Vaccine 2018-01-16 00:00:00 Completed [facility] Influenza Virus Vaccine 2018-01-16 00:00:00 Completed [facility] Influenza Virus Vaccine 2018-01-16 00:00:00 Completed [facility] Influenza Virus Vaccine 2018-01-16 00:00:00 Completed [facility] Influenza Virus Vaccine 2018-01-16 00:00:00 Completed [facility] Influenza Virus Vaccine 2018-01-16 00:00:00 Completed [facility] Influenza Virus Vaccine 2018-01-16 00:00:00 Completed [facility] Influenza Virus Vaccine 2018-01-16 00:00:00 Completed [facility] Influenza Virus Vaccine 2018-01-16 00:00:00 Completed [facility] Influenza Virus Vaccine 2018-01-16 00:00:00 Completed [facility] Influenza Virus Vaccine 2018-01-16 00:00:00 Completed [facility] Influenza Virus Vaccine 2018-01-16 00:00:00 Completed [facility] Influenza Virus Vaccine 2018-01-16 00:00:00 Completed [facility] Influenza Virus Vaccine 2018-01-16 00:00:00 Completed [facility] Influenza Virus Vaccine 2018-01-16 00:00:00 Completed [facility] Influenza Virus Vaccine 2018-01-16 00:00:00 Completed [facility] Influenza Virus Vaccine 2018-01-16 00:00:00 Completed [facility] Influenza Virus Vaccine 2018-01-16 00:00:00 Completed [facility] Influenza Virus Vaccine 2018-01-16 00:00:00 Completed [facility] Influenza Virus Vaccine 2018-01-16 00:00:00 Completed [facility] Influenza Virus Vaccine 2018-01-16 00:00:00 Completed [facility] Influenza Virus Vaccine 2018-01-16 00:00:00 Completed [facility] Influenza Virus Vaccine 2018-01-16 00:00:00 Completed [facility] Influenza Virus Vaccine 2018-01-16 00:00:00 Completed [facility] Influenza Virus Vaccine 2018-01-16 00:00:00 Completed [facility] Influenza Virus Vaccine 2018-01-16 00:00:00 Completed [facility] Influenza Virus Vaccine 2018-01-16 00:00:00 Completed [facility] Influenza Virus Vaccine 2018-01-16 00:00:00 Completed [facility] Influenza Virus Vaccine 2018-01-16 00:00:00 Completed [facility] Influenza Virus Vaccine 2018-01-16 00:00:00 Completed [facility] Influenza Virus Vaccine 2018-01-16 00:00:00 Completed [facility] Influenza Virus Vaccine 2018-01-16 00:00:00 Completed [facility] Influenza Virus Vaccine 2018-01-16 00:00:00 Completed [facility] Influenza Virus Vaccine 2018-01-16 00:00:00 Completed [facility] Influenza Virus Vaccine 2018-01-16 00:00:00 Completed [facility] Influenza Virus Vaccine 2018-01-16 00:00:00 Completed [facility] Influenza Virus Vaccine 2018-01-16 00:00:00 Completed [facility] Influenza Virus Vaccine 2018-01-16 00:00:00 Completed [facility] Influenza Virus Vaccine 2018-01-16 00:00:00 Completed [facility] Influenza Virus Vaccine 2018-01-16 00:00:00 Completed [facility] Influenza Virus Vaccine 2018-01-16 00:00:00 Completed [facility] Influenza Virus Vaccine 2018-01-16 00:00:00 Completed [facility] Influenza Virus Vaccine 2018-01-16 00:00:00 Completed [facility] Influenza Virus Vaccine 2018-01-16 00:00:00 Completed [facility] Influenza Virus Vaccine 2018-01-16 00:00:00 Completed [facility] Influenza Virus Vaccine 2018-01-16 00:00:00 Completed [facility] Influenza Virus Vaccine 2018-01-16 00:00:00 Completed [facility] Influenza Virus Vaccine 2018-01-16 00:00:00 Completed [facility] Influenza Virus Vaccine 2018-01-16 00:00:00 Completed [facility] Influenza Virus Vaccine 2018-01-16 00:00:00 Completed [facility] Influenza Virus Vaccine 2018-01-16 00:00:00 Completed [facility] Influenza Virus Vaccine 2018-01-16 00:00:00 Completed [facility] Influenza Virus Vaccine 2018-01-16 00:00:00 Completed [facility] Influenza Virus Vaccine 2018-01-16 00:00:00 [facility] [facility] Vaccine 2018-01-16 00:00:00 Completed [facility] Influenza Virus Vaccine 2018-01-16 00:00:00 Completed [facility] Influenza Virus Vaccine 2018-01-16 00:00:00 Completed [facility] Influenza Virus Vaccine 2018-01-16 00:00:00 Completed [facility] Influenza Virus Vaccine 2018-01-16 00:00:00 Completed [facility] Influenza Virus Vaccine 2018-01-16 00:00:00 Completed [facility] Influenza Virus Vaccine 2018-01-16 00:00:00 Completed [facility] Influenza Virus Vaccine 2018-01-16 00:00:00 Completed [facility] Influenza Virus Vaccine Quad IM 3+ YRS 2016-03-13 00:00:00 Completed [facility] Influenza Virus Vaccine Quad IM 3+ YRS 2016-03-13 00:00:00 Completed [facility] Influenza Virus Vaccine Quad IM 3+ YRS 2016-03-13 00:00:00 Completed [facility] Influenza Virus Vaccine Quad IM 3+ YRS 2016-03-13 00:00:00 Completed [facility] Influenza Virus Vaccine Quad IM 3+ YRS 2016-03-13 00:00:00 Completed [facility] Influenza Virus Vaccine Quad IM 3+ YRS 2016-03-13 00:00:00 Completed [facility] Influenza Virus Vaccine Quad IM 3+ YRS 2016-03-13 00:00:00 Completed [facility] Influenza Virus Vaccine Quad IM 3+ YRS 2016-03-13 00:00:00 Completed [facility] Influenza Virus Vaccine Quad IM 3+ YRS 2016-03-13 00:00:00 Completed [facility] Influenza Virus Vaccine Quad IM 3+ YRS 2016-03-13 00:00:00 Completed [facility] Influenza Virus Vaccine Quad IM 3+ YRS 2016-03-13 00:00:00 Completed [facility] Influenza Virus Vaccine Quad IM 3+ YRS 2016-03-13 00:00:00 Completed [facility] Influenza Virus Vaccine Quad IM 3+ YRS 2016-03-13 00:00:00 Completed [facility] Influenza Virus Vaccine Quad IM 3+ YRS 2016-03-13 00:00:00 Completed [facility] Influenza Virus Vaccine Quad IM 3+ YRS 2016-03-13 00:00:00 Completed [facility] Influenza Virus Vaccine Quad IM 3+ YRS 2016-03-13 00:00:00 Completed [facility] Influenza Virus Vaccine Quad IM 3+ YRS 2016-03-13 00:00:00 Completed [facility] Influenza Virus Vaccine Quad IM 3+ YRS 2016-03-13 00:00:00 Completed [facility] Influenza Virus Vaccine Quad IM 3+ YRS 2016-03-13 00:00:00 Completed [facility] Influenza Virus Vaccine Quad IM 3+ YRS 2016-03-13 00:00:00 Completed [facility] Influenza Virus Vaccine Quad IM 3+ YRS 2016-03-13 00:00:00 Completed [facility] Influenza Virus Vaccine Quad IM 3+ YRS 2016-03-13 00:00:00 Completed [facility] Influenza Virus Vaccine Quad IM 3+ YRS 2016-03-13 00:00:00 Completed [facility] Influenza Virus Vaccine Quad IM 3+ YRS 2016-03-13 00:00:00 Completed [facility] Influenza Virus Vaccine Quad IM 3+ YRS 2016-03-13 00:00:00 Completed [facility] Influenza Virus Vaccine Quad IM 3+ YRS 2016-03-13 00:00:00 Completed [facility] Influenza Virus Vaccine Quad IM 3+ YRS 2016-03-13 00:00:00 Completed [facility] Influenza Virus Vaccine Quad IM 3+ YRS 2016-03-13 00:00:00 Completed [facility] Influenza Virus Vaccine Quad IM 3+ YRS 2016-03-13 00:00:00 Completed [facility] Influenza Virus Vaccine Quad IM 3+ YRS 2016-03-13 00:00:00 Completed [facility] Influenza Virus Vaccine Quad IM 3+ YRS 2016-03-13 00:00:00 Completed [facility] Influenza Virus Vaccine Quad IM 3+ YRS 2016-03-13 00:00:00 Completed [facility] Influenza Virus Vaccine Quad IM 3+ YRS 2016-03-13 00:00:00 Completed [facility] Influenza Virus Vaccine Quad IM 3+ YRS 2016-03-13 00:00:00 Completed [facility] Influenza Virus Vaccine Quad IM 3+ YRS 2016-03-13 00:00:00 Completed [facility] Influenza Virus Vaccine Quad IM 3+ YRS 2016-03-13 00:00:00 Completed [facility] Influenza Virus Vaccine Quad IM 3+ YRS 2016-03-13 00:00:00 Completed [facility] Influenza Virus Vaccine Quad IM 3+ YRS 2016-03-13 00:00:00 Completed [facility] Influenza Virus Vaccine Quad IM 3+ YRS 2016-03-13 00:00:00 Completed [facility] Influenza Virus Vaccine Quad IM 3+ YRS 2016-03-13 00:00:00 Completed [facility] Influenza Virus Vaccine Quad IM 3+ YRS 2016-03-13 00:00:00 Completed [facility] Influenza Virus Vaccine Quad IM 3+ YRS 2016-03-13 00:00:00 Completed [facility] Influenza Virus Vaccine Quad IM 3+ YRS 2016-03-13 00:00:00 Completed [facility] Influenza Virus Vaccine Quad IM 3+ YRS 2016-03-13 00:00:00 Completed [facility] Influenza Virus Vaccine Quad IM 3+ YRS 2016-03-13 00:00:00 Completed [facility] Influenza Virus Vaccine Quad IM 3+ YRS 2016-03-13 00:00:00 Completed [facility] Influenza Virus Vaccine Quad IM 3+ YRS 2016-03-13 00:00:00 Completed [facility] Influenza Virus Vaccine Quad IM 3+ YRS 2016-03-13 00:00:00 Completed [facility] Influenza Virus Vaccine Quad IM 3+ YRS 2016-03-13 00:00:00 Completed [facility] Influenza Virus Vaccine Quad IM 3+ YRS 2016-03-13 00:00:00 Completed [facility] Influenza Virus Vaccine Quad IM 3+ YRS 2016-03-13 00:00:00 Completed [facility] Influenza Virus Vaccine Quad IM 3+ YRS 2016-03-13 00:00:00 Completed [facility] Influenza Virus Vaccine Quad IM 3+ YRS 2016-03-13 00:00:00 Completed [facility] Influenza Virus Vaccine Quad IM 3+ YRS 2016-03-13 00:00:00 Completed [facility] Influenza Virus Vaccine Quad IM 3+ YRS 2016-03-13 00:00:00 Completed [facility] Influenza Virus Vaccine Quad IM 3+ YRS 2016-03-13 00:00:00 Completed [facility] Influenza Virus Vaccine Quad IM 3+ YRS 2016-03-13 00:00:00 Completed [facility] Influenza Virus Vaccine Quad IM 3+ YRS 2016-03-13 00:00:00 Completed [facility] Influenza Virus Vaccine Quad IM 3+ YRS 2016-03-13 00:00:00 Completed [facility] Influenza Virus Vaccine Quad IM 3+ YRS 2016-03-13 00:00:00 Completed [facility] Influenza Virus Vaccine Quad IM 3+ YRS 2016-03-13 00:00:00 Completed [facility] Influenza Virus Vaccine Quad IM 3+ YRS 2016-03-13 00:00:00 Completed [facility] Influenza Virus Vaccine Quad IM 3+ YRS 2016-03-13 00:00:00 Completed [facility] Influenza Virus Vaccine Quad IM 3+ YRS 2016-03-13 00:00:00 Completed [facility] Influenza Virus Vaccine Quad IM 3+ YRS 2016-03-13 00:00:00 Completed [facility] Influenza Virus Vaccine Quad IM 3+ YRS 2016-03-13 00:00:00 Completed [facility] Influenza Virus Vaccine Quad IM 3+ YRS 2016-03-13 00:00:00 Completed [facility] Influenza Virus Vaccine Quad IM 3+ YRS 2016-03-13 00:00:00 Completed [facility] Influenza Virus Vaccine Quad IM 3+ YRS 2016-03-13 00:00:00 Completed [facility] Influenza Virus Vaccine Quad IM 3+ YRS 2016-03-13 00:00:00 Completed [facility] Influenza Virus Vaccine Quad IM 3+ YRS 2016-03-13 00:00:00 Completed [facility] Influenza Virus Vaccine Quad IM 3+ YRS 2016-03-13 00:00:00 Completed [facility] Influenza Virus Vaccine Quad IM 3+ YRS 2016-03-13 00:00:00 Completed [facility] Influenza Virus Vaccine Quad IM 3+ YRS 2016-03-13 00:00:00 Completed [facility] Influenza Virus Vaccine Quad IM 3+ YRS 2016-03-13 00:00:00 Completed [facility] Influenza Virus Vaccine Quad IM 3+ YRS 2016-03-13 00:00:00 Completed [facility] Influenza Virus Vaccine Quad IM 3+ YRS 2016-03-13 00:00:00 Completed [facility] Influenza Virus Vaccine Quad IM 3+ YRS 2016-03-13 00:00:00 Completed [facility] Influenza Virus Vaccine Quad IM 3+ YRS 2016-03-13 00:00:00 Completed [facility] Influenza Virus Vaccine Quad IM 3+ YRS 2016-03-13 00:00:00 Completed Influenza Virus Vaccine Quad IM 3+ YRS 2016-03-13 00:00:00 Completed Influenza Virus Vaccine 2011-12-22 00:00:00 Completed [facility] Influenza Virus Vaccine 2011-12-22 00:00:00 Completed [facility] Influenza Virus Vaccine 2011-12-22 00:00:00 Completed [facility] Influenza Virus Vaccine 2011-12-22 00:00:00 Completed [facility] Influenza Virus Vaccine 2011-12-22 00:00:00 Completed [facility] Influenza Virus Vaccine 2011-12-22 00:00:00 Completed [facility] Influenza Virus Vaccine 2011-12-22 00:00:00 Completed [facility] Influenza Virus Vaccine 2011-12-22 00:00:00 Completed [facility] Influenza Virus Vaccine 2011-12-22 00:00:00 Completed [facility] Influenza Virus Vaccine 2011-12-22 00:00:00 Completed [facility] Influenza Virus Vaccine 2011-12-22 00:00:00 Completed [facility] Influenza Virus Vaccine 2011-12-22 00:00:00 Completed [facility] Influenza Virus Vaccine 2011-12-22 00:00:00 Completed [facility] Influenza Virus Vaccine 2011-12-22 00:00:00 Completed [facility] Influenza Virus Vaccine 2011-12-22 00:00:00 Completed [facility] Influenza Virus Vaccine 2011-12-22 00:00:00 Completed [facility] Influenza Virus Vaccine 2011-12-22 00:00:00 Completed [facility] Influenza Virus Vaccine 2011-12-22 00:00:00 Completed [facility] Influenza Virus Vaccine 2011-12-22 00:00:00 Completed [facility] Influenza Virus Vaccine 2011-12-22 00:00:00 Completed [facility] Influenza Virus Vaccine 2011-12-22 00:00:00 Completed [facility] Influenza Virus Vaccine 2011-12-22 00:00:00 Completed [facility] Influenza Virus Vaccine 2011-12-22 00:00:00 Completed [facility] Influenza Virus Vaccine 2011-12-22 00:00:00 Completed [facility] Influenza Virus Vaccine 2011-12-22 00:00:00 Completed [facility] Influenza Virus Vaccine 2011-12-22 00:00:00 Completed [facility] Influenza Virus Vaccine 2011-12-22 00:00:00 Completed [facility] Influenza Virus Vaccine 2011-12-22 00:00:00 Completed [facility] Influenza Virus Vaccine 2011-12-22 00:00:00 Completed [facility] Influenza Virus Vaccine 2011-12-22 00:00:00 Completed [facility] Influenza Virus Vaccine 2011-12-22 00:00:00 Completed [facility] Influenza Virus Vaccine 2011-12-22 00:00:00 Completed [facility] Influenza Virus Vaccine 2011-12-22 00:00:00 Completed [facility] Influenza Virus Vaccine 2011-12-22 00:00:00 Completed [facility] Influenza Virus Vaccine 2011-12-22 00:00:00 Completed [facility] Influenza Virus Vaccine 2011-12-22 00:00:00 Completed [facility] Influenza Virus Vaccine 2011-12-22 00:00:00 Completed [facility] Influenza Virus Vaccine 2011-12-22 00:00:00 Completed [facility] Influenza Virus Vaccine 2011-12-22 00:00:00 Completed [facility] Influenza Virus Vaccine 2011-12-22 00:00:00 Completed [facility] Influenza Virus Vaccine 2011-12-22 00:00:00 Completed [facility] Influenza Virus Vaccine 2011-12-22 00:00:00 Completed [facility] Influenza Virus Vaccine 2011-12-22 00:00:00 Completed [facility] Influenza Virus Vaccine 2011-12-22 00:00:00 Completed [facility] Influenza Virus Vaccine 2011-12-22 00:00:00 Completed [facility] Influenza Virus Vaccine 2011-12-22 00:00:00 Completed [facility] Influenza Virus Vaccine 2011-12-22 00:00:00 Completed [facility] Influenza Virus Vaccine 2011-12-22 00:00:00 Completed [facility] Influenza Virus Vaccine 2011-12-22 00:00:00 Completed [facility] Influenza Virus Vaccine 2011-12-22 00:00:00 Completed [facility] Influenza Virus Vaccine 2011-12-22 00:00:00 Completed [facility] Influenza Virus Vaccine 2011-12-22 00:00:00 Completed [facility] Influenza Virus Vaccine 2011-12-22 00:00:00 Completed [facility] Influenza Virus Vaccine 2011-12-22 00:00:00 Completed [facility] Influenza Virus Vaccine 2011-12-22 00:00:00 Completed [facility] Influenza Virus Vaccine 2011-12-22 00:00:00 Completed [facility] Influenza Virus Vaccine 2011-12-22 00:00:00 Completed [facility] Influenza Virus Vaccine 2011-12-22 00:00:00 Completed [facility] Influenza Virus Vaccine 2011-12-22 00:00:00 Completed [facility] Influenza Virus Vaccine 2011-12-22 00:00:00 Completed [facility] Influenza Virus Vaccine 2011-12-22 00:00:00 Completed [facility] Influenza Virus Vaccine 2011-12-22 00:00:00 Completed [facility] Influenza Virus Vaccine 2011-12-22 00:00:00 Completed [facility] Influenza Virus Vaccine 2011-12-22 00:00:00 Completed [facility] Influenza Virus Vaccine 2011-12-22 00:00:00 Completed [facility] Influenza Virus Vaccine 2011-12-22 00:00:00 Completed [facility] Influenza Virus Vaccine 2011-12-22 00:00:00 Completed [facility] Influenza Virus Vaccine 2011-12-22 00:00:00 Completed [facility] Influenza Virus Vaccine 2011-12-22 00:00:00 Completed [facility] Influenza Virus Vaccine 2011-12-22 00:00:00 Completed [facility] Influenza Virus Vaccine 2011-12-22 00:00:00 Completed [facility] Influenza Virus Vaccine 2011-12-22 00:00:00 Completed [facility] Influenza Virus Vaccine 2011-12-22 00:00:00 Completed [facility] Influenza Virus Vaccine 2011-12-22 00:00:00 Completed [facility] Influenza Virus Vaccine 2011-12-22 00:00:00 Completed [facility] Influenza Virus Vaccine 2011-12-22 00:00:00 Completed [facility] Influenza Virus Vaccine 2011-12-22 00:00:00 Completed [facility] Influenza Virus Vaccine 2011-12-22 00:00:00 Completed [facility] Influenza Virus Vaccine 2011-12-22 00:00:00 Completed [facility] Influenza Virus Vaccine 2011-12-22 00:00:00 Completed [facility] Influenza Virus Vaccine 2011-12-22 00:00:00 Completed [facility] Influenza Virus Vaccine 2010-01-31 00:00:00 Completed [facility] Influenza Virus Vaccine 2010-01-31 00:00:00 Completed [facility] Influenza Virus Vaccine 2010-01-31 00:00:00 Completed [facility] Influenza Virus Vaccine 2010-01-31 00:00:00 Completed [facility] Influenza Virus Vaccine 2010-01-31 00:00:00 Completed [facility] Influenza Virus Vaccine 2010-01-31 00:00:00 Completed [facility] Influenza Virus Vaccine 2010-01-31 00:00:00 Completed [facility] Influenza Virus Vaccine 2010-01-31 00:00:00 Completed [facility] Influenza Virus Vaccine 2010-01-31 00:00:00 Completed [facility] Influenza Virus Vaccine 2010-01-31 00:00:00 Completed [facility] Influenza Virus Vaccine 2010-01-31 00:00:00 Completed [facility] Influenza Virus Vaccine 2010-01-31 00:00:00 Completed [facility] Influenza Virus Vaccine 2010-01-31 00:00:00 Completed [facility] Influenza Virus Vaccine 2010-01-31 00:00:00 Completed [facility] Influenza Virus Vaccine 2010-01-31 00:00:00 Completed [facility] Influenza Virus Vaccine 2010-01-31 00:00:00 Completed [facility] Influenza Virus Vaccine 2010-01-31 00:00:00 Completed [facility] Influenza Virus Vaccine 2010-01-31 00:00:00 Completed [facility] Influenza Virus Vaccine 2010-01-31 00:00:00 Completed [facility] Influenza Virus Vaccine 2010-01-31 00:00:00 Completed [facility] Influenza Virus Vaccine 2010-01-31 00:00:00 Completed [facility] Influenza Virus Vaccine 2010-01-31 00:00:00 Completed [facility] Influenza Virus Vaccine 2010-01-31 00:00:00 Completed [facility] Influenza Virus Vaccine 2010-01-31 00:00:00 Completed [facility] Influenza Virus Vaccine 2010-01-31 00:00:00 Completed [facility] Influenza Virus Vaccine 2010-01-31 00:00:00 Completed [facility] Influenza Virus Vaccine 2010-01-31 00:00:00 Completed [facility] Influenza Virus Vaccine 2010-01-31 00:00:00 Completed [facility] Influenza Virus Vaccine 2010-01-31 00:00:00 Completed [facility] Influenza Virus Vaccine 2010-01-31 00:00:00 Completed [facility] Influenza Virus Vaccine 2010-01-31 00:00:00 Completed [facility] Influenza Virus Vaccine 2010-01-31 00:00:00 Completed [facility] Influenza Virus Vaccine 2010-01-31 00:00:00 Completed [facility] Influenza Virus Vaccine 2010-01-31 00:00:00 Completed [facility] Influenza Virus Vaccine 2010-01-31 00:00:00 Completed [facility] Influenza Virus Vaccine 2010-01-31 00:00:00 Completed [facility] Influenza Virus Vaccine 2010-01-31 00:00:00 Completed [facility] Influenza Virus Vaccine 2010-01-31 00:00:00 Completed [facility] Influenza Virus Vaccine 2010-01-31 00:00:00 Completed [facility] Influenza Virus Vaccine 2010-01-31 00:00:00 Completed [facility] Influenza Virus Vaccine 2010-01-31 00:00:00 Completed [facility] Influenza Virus Vaccine 2010-01-31 00:00:00 Completed [facility] Influenza Virus Vaccine 2010-01-31 00:00:00 Completed [facility] Influenza Virus Vaccine 2010-01-31 00:00:00 Completed [facility] Influenza Virus Vaccine 2010-01-31 00:00:00 Completed [facility] Influenza Virus Vaccine 2010-01-31 00:00:00 Completed [facility] Influenza Virus Vaccine 2010-01-31 00:00:00 Completed [facility] Influenza Virus Vaccine 2010-01-31 00:00:00 Completed [facility] Influenza Virus Vaccine 2010-01-31 00:00:00 Completed [facility] Influenza Virus Vaccine 2010-01-31 00:00:00 Completed [facility] Influenza Virus Vaccine 2010-01-31 00:00:00 Completed [facility] Influenza Virus Vaccine 2010-01-31 00:00:00 Completed [facility] Influenza Virus Vaccine 2010-01-31 00:00:00 Completed [facility] Influenza Virus Vaccine 2010-01-31 00:00:00 Completed [facility] Influenza Virus Vaccine 2010-01-31 00:00:00 Completed [facility] Influenza Virus Vaccine 2010-01-31 00:00:00 Completed [facility] Influenza Virus Vaccine 2010-01-31 00:00:00 Completed [facility] Influenza Virus Vaccine 2010-01-31 00:00:00 Completed [facility] Influenza Virus Vaccine 2010-01-31 00:00:00 Completed [facility] Influenza Virus Vaccine 2010-01-31 00:00:00 Completed [facility] Influenza Virus Vaccine 2010-01-31 00:00:00 Completed [facility] Influenza Virus Vaccine 2010-01-31 00:00:00 Completed [facility] Influenza Virus Vaccine 2010-01-31 00:00:00 Completed [facility] Influenza Virus Vaccine 2010-01-31 00:00:00 Completed [facility] Influenza Virus Vaccine 2010-01-31 00:00:00 Completed [facility] Influenza Virus Vaccine 2010-01-31 00:00:00 Completed [facility] Influenza Virus Vaccine 2010-01-31 00:00:00 Completed [facility] Influenza Virus Vaccine 2010-01-31 00:00:00 Completed [facility] Influenza Virus Vaccine 2010-01-31 00:00:00 Completed [facility] Influenza Virus Vaccine 2010-01-31 00:00:00 Completed [facility] Influenza Virus Vaccine 2010-01-31 00:00:00 Completed [facility] Influenza Virus Vaccine 2010-01-31 00:00:00 Completed [facility] Influenza Virus Vaccine 2010-01-31 00:00:00 Completed [facility] Influenza Virus Vaccine 2010-01-31 00:00:00 Completed [facility] Influenza Virus Vaccine 2010-01-31 00:00:00 Completed [facility] Influenza Virus Vaccine 2010-01-31 00:00:00 Completed [facility] Influenza Virus Vaccine 2010-01-31 00:00:00 Completed [facility] Influenza Virus Vaccine 2010-01-31 00:00:00 Completed [facility] Influenza Virus Vaccine 2010-01-31 00:00:00 Completed [facility] Influenza Virus Vaccine 2010-01-31 00:00:00 Completed [facility] Influenza Virus Vaccine 2010-01-31 00:00:00 Completed [facility] H1n1 Vaccine 2009-03-01 00:00:00 Completed [facility] H1n1 Vaccine 2009-03-01 00:00:00 Completed [facility] H1n1 Vaccine 2009-03-01 00:00:00 Completed [facility] H1n1 Vaccine 2009-03-01 00:00:00 Completed [facility] H1n1 Vaccine 2009-03-01 00:00:00 Completed [facility] H1n1 Vaccine 2009-03-01 00:00:00 Completed [facility] H1n1 Vaccine 2009-03-01 00:00:00 Completed [facility] H1n1 Vaccine 2009-03-01 00:00:00 Completed [facility] H1n1 Vaccine 2009-03-01 00:00:00 Completed [facility] H1n1 Vaccine 2009-03-01 00:00:00 Completed [facility] H1n1 Vaccine 2009-03-01 00:00:00 Completed [facility] H1n1 Vaccine 2009-03-01 00:00:00 Completed [facility] H1n1 Vaccine 2009-03-01 00:00:00 Completed [facility] H1n1 Vaccine 2009-03-01 00:00:00 Completed [facility] H1n1 Vaccine 2009-03-01 00:00:00 Completed [facility] H1n1 Vaccine 2009-03-01 00:00:00 Completed [facility] H1n1 Vaccine 2009-03-01 00:00:00 Completed [facility] H1n1 Vaccine 2009-03-01 00:00:00 Completed [facility] H1n1 Vaccine 2009-03-01 00:00:00 Completed [facility] H1n1 Vaccine 2009-03-01 00:00:00 Completed [facility] H1n1 Vaccine 2009-03-01 00:00:00 Completed [facility] H1n1 Vaccine 2009-03-01 00:00:00 Completed [facility] H1n1 Vaccine 2009-03-01 00:00:00 Completed [facility] H1n1 Vaccine 2009-03-01 00:00:00 Completed [facility] H1n1 Vaccine 2009-03-01 00:00:00 Completed [facility] H1n1 Vaccine 2009-03-01 00:00:00 Completed [facility] H1n1 Vaccine 2009-03-01 00:00:00 Completed [facility] H1n1 Vaccine 2009-03-01 00:00:00 Completed [facility] H1n1 Vaccine 2009-03-01 00:00:00 Completed [facility] H1n1 Vaccine 2009-03-01 00:00:00 Completed [facility] H1n1 Vaccine 2009-03-01 00:00:00 Completed [facility] H1n1 Vaccine 2009-03-01 00:00:00 Completed [facility] H1n1 Vaccine 2009-03-01 00:00:00 Completed [facility] H1n1 Vaccine 2009-03-01 00:00:00 Completed [facility] H1n1 Vaccine 2009-03-01 00:00:00 Completed [facility] H1n1 Vaccine 2009-03-01 00:00:00 Completed [facility] H1n1 Vaccine 2009-03-01 00:00:00 Completed [facility] H1n1 Vaccine 2009-03-01 00:00:00 Completed [facility] H1n1 Vaccine 2009-03-01 00:00:00 Completed [facility] H1n1 Vaccine 2009-03-01 00:00:00 Completed [facility] H1n1 Vaccine 2009-03-01 00:00:00 Completed [facility] H1n1 Vaccine 2009-03-01 00:00:00 Completed [facility] H1n1 Vaccine 2009-03-01 00:00:00 Completed [facility] H1n1 Vaccine 2009-03-01 00:00:00 Completed [facility] H1n1 Vaccine 2009-03-01 00:00:00 Completed [facility] H1n1 Vaccine 2009-03-01 00:00:00 Completed [facility] H1n1 Vaccine 2009-03-01 00:00:00 Completed [facility] H1n1 Vaccine 2009-03-01 00:00:00 Completed [facility] H1n1 Vaccine 2009-03-01 00:00:00 Completed [facility] H1n1 Vaccine 2009-03-01 00:00:00 Completed [facility] H1n1 Vaccine 2009-03-01 00:00:00 Completed [facility] H1n1 Vaccine 2009-03-01 00:00:00 Completed [facility] H1n1 Vaccine 2009-03-01 00:00:00 Completed [facility] H1n1 Vaccine 2009-03-01 00:00:00 Completed [facility] H1n1 Vaccine 2009-03-01 00:00:00 Completed [facility] H1n1 Vaccine 2009-03-01 00:00:00 Completed [facility] H1n1 Vaccine 2009-03-01 00:00:00 Completed [facility] H1n1 Vaccine 2009-03-01 00:00:00 Completed [facility] H1n1 Vaccine 2009-03-01 00:00:00 Completed [facility] H1n1 Vaccine 2009-03-01 00:00:00 Completed [facility] H1n1 Vaccine 2009-03-01 00:00:00 Completed [facility] H1n1 Vaccine 2009-03-01 00:00:00 Completed [facility] H1n1 Vaccine 2009-03-01 00:00:00 Completed [facility] H1n1 Vaccine 2009-03-01 00:00:00 Completed [facility] H1n1 Vaccine 2009-03-01 00:00:00 Completed [facility] H1n1 Vaccine 2009-03-01 00:00:00 Completed [facility] H1n1 Vaccine 2009-03-01 00:00:00 Completed [facility] H1n1 Vaccine 2009-03-01 00:00:00 Completed [facility] H1n1 Vaccine 2009-03-01 00:00:00 Completed [facility] H1n1 Vaccine 2009-03-01 00:00:00 Completed [facility] H1n1 Vaccine 2009-03-01 00:00:00 Completed [facility] H1n1 Vaccine 2009-03-01 00:00:00 Completed [facility] H1n1 Vaccine 2009-03-01 00:00:00 Completed [facility] H1n1 Vaccine 2009-03-01 00:00:00 Completed [facility] H1n1 Vaccine 2009-03-01 00:00:00 Completed [facility] H1n1 Vaccine 2009-03-01 00:00:00 Completed [facility] H1n1 Vaccine 2009-03-01 00:00:00 Completed [facility] H1n1 Vaccine 2009-03-01 00:00:00 Completed [facility] H1n1 Vaccine 2009-03-01 00:00:00 Completed [facility] H1n1 Vaccine 2009-03-01 00:00:00 Completed [facility] H1n1 Vaccine 2009-03-01 00:00:00 Completed [facility] H1n1 Vaccine Unknown Completed [facility] Influenza Virus Vaccine Quad IM 3+ YRS Unknown Completed [facility] Influenza Virus Vaccine Unknown Completed [facility] SARS-COV-2 COVID-19 PFIZER VACCINE Unknown Completed [facility] Influenza Virus Vaccine Quad IM, Preserv and ABX Free 6 MO-64 YRS (FLUCELVAX) Unknown Completed [facility] Influenza Virus Vaccine Unknown Completed [facility] SARS-COV-2 COVID-19 PFIZER VACCINE Unknown Completed [facility] Influenza Virus Vaccine Quad IM, Preserv and ABX Free 6 MO-64 YRS (FLUCELVAX) Unknown Completed [facility] H1n1 Vaccine Unknown [facility]ine Quad IM 3+ YRS Unknown Completed [facility] H1n1 Vaccine Unknown [facility] Vaccine Quad IM 3+ YRS Unknown Completed [facility] Influenza Virus Vaccine Unknown Completed [facility] SARS-COV-2 COVID-19 PFIZER VACCINE Unknown Completed [facility] Influenza Virus Vaccine Quad IM, Preserv and ABX Free 6 MO-64 YRS (FLUCELVAX) Unknown Completed [facility] H1n1 Vaccine Unknown [facility] Vaccine Quad IM 3+ YRS Unknown Completed [facility] Influenza Virus Vaccine Unknown Completed [facility] SARS-COV-2 COVID-19 PFIZER VACCINE Unknown Completed [facility] Influenza Virus Vaccine Quad IM, Preserv and ABX Free 6 MO-64 YRS (FLUCELVAX) Unknown Completed [facility] H1n1 Vaccine Unknown Completed [facility] Influenza Virus Vaccine Quad IM 3+ YRS Unknown Completed [facility] Influenza Virus Vaccine Unknown Completed [facility] SARS-COV-2 COVID-19 PFIZER VACCINE Unknown Completed [facility] Influenza Virus Vaccine Quad IM, Preserv and ABX Free 6 MO-64 YRS (FLUCELVAX) Unknown Completed [facility] H1n1 Vaccine Unknown Completed [facility] Influenza Virus Vaccine Quad IM 3+ YRS Unknown Completed [facility] Influenza Virus Vaccine Unknown Completed [facility] SARS-COV-2 COVID-19 PFIZER VACCINE Unknown Completed [facility] Influenza Virus Vaccine Quad IM, Preserv and ABX Free 6 MO-64 YRS (FLUCELVAX) Unknown Completed [facility] H1n1 Vaccine Unknown Completed [facility] Influenza Virus Vaccine Quad IM 3+ YRS Unknown Completed [facility] Influenza Virus Vaccine Unknown Completed [facility] SARS-COV-2 COVID-19 PFIZER VACCINE Unknown Completed [facility] Influenza Virus Vaccine Quad IM, Preserv and ABX Free 6 MO-64 YRS (FLUCELVAX) Unknown Completed [facility] H1n1 Vaccine Unknown Completed [facility] Influenza Virus Vaccine Quad IM 3+ YRS Unknown Completed [facility] Influenza Virus Vaccine Unknown Completed [facility] SARS-COV-2 COVID-19 PFIZER VACCINE Unknown Completed [facility] Influenza Virus Vaccine Quad IM, Preserv and ABX Free 6 MO-64 YRS (FLUCELVAX) Unknown Completed [facility] H1n1 Vaccine Unknown [facility]ine Quad IM 3+ YRS Unknown Completed [facility] Influenza Virus Vaccine Unknown Completed [facility] SARS-COV-2 COVID-19 PFIZER VACCINE Unknown Completed [facility] Influenza Virus Vaccine Quad IM, Preserv and ABX Free 6 MO-64 YRS (FLUCELVAX) Unknown Completed [facility] H1n1 Vaccine Unknown Completed [facility] Influenza Virus Vaccine Quad IM 3+ YRS Unknown Completed [facility] Influenza Virus Vaccine Unknown Completed [facility] SARS-COV-2 COVID-19 PFIZER VACCINE Unknown Completed [facility] Influenza Virus Vaccine Quad IM, Preserv and ABX Free 6 MO-64 YRS (FLUCELVAX) Unknown Completed [facility] H1n1 Vaccine Unknown Completed [facility] Influenza Virus Vaccine Quad IM 3+ YRS Unknown Completed [facility] Influenza Virus Vaccine Unknown Completed [facility] SARS-COV-2 COVID-19 PFIZER VACCINE Unknown Completed [facility] H1n1 Vaccine Unknown Completed [facility] Influenza Virus Vaccine Quad IM 3+ YRS Unknown Completed [facility] Influenza Virus Vaccine Unknown Completed [facility] SARS-COV-2 COVID-19 PFIZER VACCINE Unknown Completed [facility] H1n1 Vaccine Unknown Completed [facility] Influenza Virus Vaccine Quad IM 3+ YRS Unknown Completed [facility] Influenza Virus Vaccine Unknown Completed [facility] SARS-COV-2 COVID-19 PFIZER VACCINE Unknown Completed [facility] H1n1 Vaccine Unknown Completed [facility] Influenza Virus Vaccine Quad IM 3+ YRS Unknown Completed [facility] Influenza Virus Vaccine Unknown Completed [facility] SARS-COV-2 COVID-19 PFIZER VACCINE Unknown Completed [facility] H1n1 Vaccine Unknown Completed [facility] Influenza Virus Vaccine Quad IM 3+ YRS Unknown Completed [facility] Influenza Virus Vaccine Unknown Completed [facility] Influenza Virus Vaccine Unknown Completed [facility] SARS-COV-2 COVID-19 PFIZER VACCINE Unknown Completed [facility] Influenza Virus Vaccine Quad IM, Preserv and ABX Free 6 MO-64 YRS (FLUCELVAX) Unknown Completed [facility] H1n1 Vaccine Unknown Completed [facility] Influenza Virus Vaccine Quad IM 3+ YRS Unknown Completed [facility] H1n1 Vaccine Unknown Completed [facility] Influenza Virus Vaccine Quad IM 3+ YRS Unknown Completed [facility] Influenza Virus Vaccine Unknown Completed [facility] SARS-COV-2 COVID-19 PFIZER VACCINE Unknown Completed [facility] Influenza Virus Vaccine Quad IM, Preserv and ABX Free 6 MO-64 YRS (FLUCELVAX) Unknown Completed [facility] H1n1 Vaccine Unknown Completed [facility] Influenza Virus Vaccine Quad IM 3+ YRS Unknown Completed [facility] Influenza Virus Vaccine Unknown Completed [facility] SARS-COV-2 COVID-19 PFIZER VACCINE Unknown Completed [facility] Influenza Virus Vaccine Quad IM, Preserv and ABX Free 6 MO-64 YRS (FLUCELVAX) Unknown Completed [facility] H1n1 Vaccine Unknown Completed [facility] Influenza Virus Vaccine Quad IM 3+ YRS Unknown Completed [facility] Influenza Virus Vaccine Unknown Completed [facility] SARS-COV-2 COVID-19 PFIZER VACCINE Unknown Completed [facility] Influenza Virus Vaccine Quad IM, Preserv and ABX Free 6 MO-64 YRS (FLUCELVAX) Unknown Completed [facility] H1n1 Vaccine Unknown Completed [facility] Influenza Virus Vaccine Quad IM 3+ YRS Unknown Completed [facility] Influenza Virus Vaccine Unknown Completed [facility] SARS-COV-2 COVID-19 PFIZER VACCINE Unknown Completed [facility] Influenza Virus Vaccine Quad IM, Preserv and ABX Free 6 MO-64 YRS (FLUCELVAX) Unknown Completed [facility] H1n1 Vaccine Unknown Completed [facility] Influenza Virus Vaccine Quad IM 3+ YRS Unknown Completed [facility] Influenza Virus Vaccine Unknown Completed [facility] SARS-COV-2 COVID-19 PFIZER VACCINE Unknown Completed [facility] Influenza Virus Vaccine Quad IM, Preserv and ABX Free 6 MO-64 YRS (FLUCELVAX) Unknown Completed [facility] H1n1 Vaccine Unknown Completed [facility] Influenza Virus Vaccine Quad IM 3+ YRS Unknown Completed [facility] Influenza Virus Vaccine Unknown Completed [facility] SARS-COV-2 COVID-19 PFIZER VACCINE Unknown Completed [facility] Influenza Virus Vaccine Quad IM, Preserv and ABX Free 6 MO-64 YRS (FLUCELVAX) Unknown Completed [facility] H1n1 Vacc[facility] Unknown [facility] Vaccine Quad IM 3+ YRS Unknown Completed [facility] Influenza Virus Vaccine Unknown Completed [facility] SARS-COV-2 COVID-19 PFIZER VACCINE Unknown Completed [facility] Influenza Virus Vaccine Quad IM, Preserv and ABX Free 6 MO-64 YRS (FLUCELVAX) Unknown Completed [facility] H1n1 Vaccine Unknown Completed [facility] Influenza Virus Vaccine Quad IM 3+ YRS Unknown Completed [facility] Influenza Virus Vaccine Unknown Completed [facility] SARS-COV-2 COVID-19 PFIZER VACCINE Unknown Completed [facility] Influenza Virus Vaccine Quad IM, Preserv and ABX Free 6 MO-64 YRS (FLUCELVAX) Unknown Completed [facility] Influenza Virus Vaccine Unknown Completed [facility] SARS-COV-2 COVID-19 PFIZER VACCINE Unknown Completed [facility] Influenza Virus Vaccine Quad IM, Preserv and ABX Free 6 MO-64 YRS (FLUCELVAX) Unknown Completed [facility] H1n1 Vaccine Unknown Completed [facility] Influenza Virus Vaccine Quad IM 3+ YRS Unknown Completed [facility] Influenza Virus Vaccine Unknown Completed [facility] SARS-COV-2 COVID-19 PFIZER VACCINE Unknown Completed [facility] Influenza Virus Vaccine Quad IM, Preserv and ABX Free 6 MO-64 YRS (FLUCELVAX) Unknown Completed [facility] H1n1 Vaccine Unknown Completed [facility] Influenza Virus Vaccine Quad IM 3+ YRS Unknown Completed [facility] Influenza Virus Vaccine Unknown Completed [facility] SARS-COV-2 COVID-19 PFIZER VACCINE Unknown Completed [facility] Influenza Virus Vaccine Quad IM, Preserv and ABX Free 6 MO-64 YRS (FLUCELVAX) Unknown Completed [facility] H1n1 Vaccine Unknown Completed [facility] Influenza Virus Vaccine Quad IM 3+ YRS Unknown Completed [facility] Influenza Virus Vaccine Unknown Completed [facility] SARS-COV-2 COVID-19 PFIZER VACCINE Unknown Completed [facility] Influenza Virus Vaccine Quad IM, Preserv and ABX Free 6 MO-64 YRS (FLUCELVAX) Unknown Completed [facility] H1n1 Vaccine Unknown Completed [facility] Influenza Virus Vaccine Quad IM 3+ YRS Unknown Completed [facility] Influenza Virus Vaccine Unknown Completed [facility] SARS-COV-2 COVID-19 PFIZER VACCINE Unknown Completed [facility] Influenza Virus Vaccine Quad IM, Preserv and ABX Free 6 MO-64 YRS (FLUCELVAX) Unknown Completed [facility] H1n1 Vaccine Unknown Completed [facility] Influenza Virus Vaccine Unknown Completed [facility] Influenza Virus Vaccine Quad IM 3+ YRS Unknown Completed [facility] SARS-COV-2 COVID-19 PFIZER VACCINE Unknown Completed [facility] Influenza Virus Vaccine Quad IM, Preserv and ABX Free 6 MO-64 YRS (FLUCELVAX) Unknown Completed [facility] H1n1 Vaccine Unknown Completed [facility] Influenza Virus Vaccine Unknown Completed [facility] Influenza Virus Vaccine Quad IM 3+ YRS Unknown Completed [facility] SARS-COV-2 COVID-19 PFIZER VACCINE Unknown Completed [facility] Influenza Virus Vaccine Quad IM, Preserv and ABX Free 6 MO-64 YRS (FLUCELVAX) Unknown Completed [facility] H1n1 Vaccine Unknown Completed [facility] Influenza Virus Vaccine Unknown Completed [facility] Influenza Virus Vaccine Quad IM 3+ YRS Unknown Completed [facility] SARS-COV-2 COVID-19 PFIZER VACCINE Unknown Completed [facility] Influenza Virus Vaccine Quad IM, Preserv and ABX Free 6 MO-64 YRS (FLUCELVAX) Unknown Completed [facility] H1n1 Vaccine Unknown Completed [facility] Influenza Virus Vaccine Unknown Completed [facility] Influenza Virus Vaccine Quad IM 3+ YRS Unknown Completed [facility] SARS-COV-2 COVID-19 PFIZER VACCINE Unknown Completed [facility] Influenza Virus Vaccine Quad IM, Preserv and ABX Free 6 MO-64 YRS (FLUCELVAX) Unknown Completed [facility] H1n1 Vaccine Unknown Completed [facility] Influenza Virus Vaccine Quad IM 3+ YRS Unknown Completed [facility] Influenza Virus Vaccine Quad IM, Preserv and ABX Free 6 MO-64 YRS (FLUCELVAX) Unknown Completed [facility] Influenza Virus Vaccine Unknown Completed [facility] [facility] SARS-COV-2 COVID-19 PFIZER VACCINE Unknown Completed [facility] H1n1 Vaccine Unknown Completed [facility] Influenza Virus Vaccine Unknown Completed [facility] Influenza Virus Vaccine Quad IM 3+ YRS Unknown Completed [facility] SARS-COV-2 COVID-19 PFIZER VACCINE Unknown Completed [facility] Influenza Virus Vaccine Quad IM, Preserv and ABX Free 6 MO-64 YRS (FLUCELVAX) Unknown Completed [facility] H1n1 Vaccine Unknown Completed [facility] Influenza Virus Vaccine Unknown Completed [facility] Influenza Virus Vaccine Quad IM 3+ YRS Unknown Completed [facility] SARS-COV-2 COVID-19 PFIZER VACCINE Unknown Completed [facility] Influenza Virus Vaccine Quad IM, Preserv and ABX Free 6 MO-64 YRS (FLUCELVAX) Unknown Completed [facility] H1n1 Vaccine Unknown Completed [facility] Influenza Virus Vaccine Unknown Completed [facility] Influenza Virus Vaccine Quad IM 3+ YRS Unknown Completed [facility] SARS-COV-2 COVID-19 PFIZER VACCINE Unknown Completed [facility] Influenza Virus Vaccine Quad IM, Preserv and ABX Free 6 MO-64 YRS (FLUCELVAX) Unknown Completed [facility] H1n1 Vaccine Unknown Completed [facility] Influenza Virus Vaccine Unknown Completed [facility] Influenza Virus Vaccine Quad IM 3+ YRS Unknown Completed [facility] SARS-COV-2 COVID-19 PFIZER VACCINE Unknown Completed [facility] Influenza Virus Vaccine Quad IM, Preserv and ABX Free 6 MO-64 YRS (FLUCELVAX) Unknown Completed [facility] H1n1 Vaccine Unknown Completed [facility] Influenza Virus Vaccine Unknown Completed [facility] Influenza Virus Vaccine Quad IM 3+ YRS Unknown Completed [facility] SARS-COV-2 COVID-19 PFIZER VACCINE Unknown Completed [facility] Influenza Virus Vaccine Quad IM, Preserv and ABX Free 6 MO-64 YRS (FLUCELVAX) Unknown Completed [facility] H1n1 Vaccine Unknown Completed [facility] Influenza Virus Vaccine Unknown Completed [facility] Influenza Virus Vaccine Quad IM 3+ YRS Unknown Completed [facility] SARS-COV-2 COVID-19 PFIZER VACCINE Unknown Completed [facility] Influenza Virus Vaccine Quad IM, Preserv and ABX Free 6 MO-64 YRS (FLUCELVAX) Unknown Completed [facility] H1n1 Vaccine Unknown Completed [facility] Influenza Virus Vaccine Unknown Completed [facility] Influenza Virus Vaccine Quad IM 3+ YRS Unknown Completed [facility] SARS-COV-2 COVID-19 PFIZER VACCINE Unknown Completed [facility] Influenza Virus Vaccine Quad IM, Preserv and ABX Free 6 MO-64 YRS (FLUCELVAX) Unknown Completed [facility] H1n1 Vaccine Unknown Completed [facility] Influenza Virus Vaccine Quad IM 3+ YRS Unknown Completed [facility] Influenza Virus Vaccine Unknown Completed [facility] SARS-COV-2 COVID-19 PFIZER VACCINE Unknown Completed [facility] Influenza Virus Vaccine Quad IM, Preserv and ABX Free 6 MO-64 YRS (FLUCELVAX) Unknown Completed [facility] H1n1 Vaccine Unknown Completed [facility] Influenza Virus Vaccine Quad IM 3+ YRS Unknown Completed [facility] Influenza Virus Vaccine Quad IM, Preserv and ABX Free 6 MO-64 YRS (FLUCELVAX) Unknown Completed [facility] Influenza Virus Vaccine Unknown Completed [facility] SARS-COV-2 COVID-19 PFIZER VACCINE Unknown Completed [facility] H1n1 Vaccine Unknown Completed [facility] Influenza Virus Vaccine Unknown Completed [facility] Influenza Virus Vaccine Quad IM 3+ YRS Unknown Completed [facility] SARS-COV-2 COVID-19 PFIZER VACCINE Unknown Completed [facility] Influenza Virus Vaccine Quad IM, Preserv and ABX Free 6 MO-64 YRS (FLUCELVAX) Unknown Completed [facility] H1n1 Vaccine Unknown Completed [facility] Influenza Virus Vaccine Unknown Completed [facility] Influenza Virus Vaccine Quad IM 3+ YRS Unknown Completed [facility] SARS-COV-2 COVID-19 PFIZER VACCINE Unknown Completed [facility] Influenza Virus Vaccine Quad IM, Preserv and ABX Free 6 MO-64 YRS (FLUCELVAX) Unknown Completed [facility] H1n1 Vaccine Unknown Completed [facility] Influenza Virus Vaccine Unknown Completed [facility] Influenza Virus Vaccine Quad IM 3+ YRS Unknown Completed [facility] SARS-COV-2 COVID-19 PFIZER VACCINE Unknown Completed [facility] Influenza Virus Vaccine Quad IM, Preserv and ABX Free 6 MO-64 YRS (FLUCELVAX) Unknown Completed [facility] H1n1 Vaccine [facility]ine Quad IM 3+ YRS Unknown Completed [facility] Influenza Virus Vaccine Quad IM, Preserv and ABX Free 6 MO-64 YRS (FLUCELVAX) Unknown Completed [facility] Influenza Virus Vaccine Unknown Completed [facility] SARS-COV-2 COVID-19 PFIZER VACCINE Unknown Completed [facility] H1n1 Vaccine Unknown Completed [facility] Influenza Virus Vaccine Quad IM 3+ YRS Unknown Completed [facility] H1n1 Vaccine Unknown Completed [facility] Influenza Virus Vaccine Unknown Completed [facility] Influenza Virus Vaccine Quad IM 3+ YRS Unknown Completed [facility] SARS-COV-2 COVID-19 PFIZER VACCINE Unknown Completed [facility] Influenza Virus Vaccine Quad IM, Preserv and ABX Free 6 MO-64 YRS (FLUCELVAX) Unknown Completed [facility] H1n1 Vaccine Unknown Completed [facility] Influenza Virus Vaccine Unknown Completed [facility] Influenza Virus Vaccine Quad IM 3+ YRS Unknown Completed [facility] SARS-COV-2 COVID-19 PFIZER VACCINE Unknown Completed [facility] Influenza Virus Vaccine Quad IM, Preserv and ABX Free 6 MO-64 YRS (FLUCELVAX) Unknown Completed [facility] H1n1 Vaccine Unknown [facility]ine [facility] Completed [facility] Influenza Virus Vaccine Quad IM 3+ YRS Unknown Completed [facility] SARS-COV-2 COVID-19 PFIZER VACCINE Unknown Completed [facility] Influenza Virus Vaccine Quad IM, Preserv and ABX Free 6 MO-64 YRS (FLUCELVAX) Unknown Completed [facility] H1n1 Vaccine Unknown Completed [facility] Influenza Virus Vaccine Unknown Completed [facility] Influenza Virus Vaccine Quad IM 3+ YRS Unknown Completed [facility] SARS-COV-2 COVID-19 PFIZER VACCINE Unknown Completed [facility] Influenza Virus Vaccine Quad IM, Preserv and ABX Free 6 MO-64 YRS (FLUCELVAX) Unknown Completed [facility] H1n1 Vaccine Unknown Completed [facility] Influenza Virus Vaccine Quad IM 3+ YRS Unknown Completed [facility] Influenza Virus Vaccine Quad IM, Preserv and ABX Free 6 MO-64 YRS (FLUCELVAX) Unknown Completed [facility] Influenza Virus Vaccine Unknown Completed [facility] SARS-COV-2 COVID-19 PFIZER VACCINE Unknown Completed [facility] H1n1 Vaccine Unknown Completed [facility] Influenza Virus Vaccine Unknown Completed [facility] Influenza Virus Vaccine Quad IM 3+ YRS Unknown Completed [facility] SARS-COV-2 COVID-19 PFIZER VACCINE Unknown Completed [facility] Influenza Virus Vaccine Quad IM, Preserv and ABX Free 6 MO-64 YRS (FLUCELVAX) Unknown Completed [facility] H1n1 Vaccine Unknown Completed [facility] Influenza Virus Vaccine Unknown Completed [facility] Influenza Virus Vaccine Quad IM 3+ YRS Unknown Completed [facility] SARS-COV-2 COVID-19 PFIZER VACCINE Unknown Completed [facility] Influenza Virus Vaccine Quad IM, Preserv and ABX Free 6 MO-64 YRS (FLUCELVAX) Unknown Completed [facility] H1n1 Vaccine Unknown Completed [facility] Influenza Virus Vaccine Unknown Completed [facility] Influenza Virus Vaccine Quad IM 3+ YRS Unknown Completed [facility] SARS-COV-2 COVID-19 PFIZER VACCINE Unknown Completed [facility] Influenza Virus Vaccine Quad IM, Preserv and ABX Free 6 MO-64 YRS (FLUCELVAX) Unknown Completed [facility] H1n1 Vaccine Unknown Completed [facility] Influenza Virus Vaccine Unknown Completed [facility] Influenza Virus Vaccine Quad IM 3+ YRS Unknown Completed [facility] SARS-COV-2 COVID-19 PFIZER VACCINE Unknown Completed [facility] Influenza Virus Vaccine Quad IM, Preserv and ABX Free 6 MO-64 YRS (FLUCELVAX) Unknown Completed [facility] H1n1 Vaccine Unknown Completed [facility] Influenza Virus Vaccine Unknown Completed [facility] Influenza Virus Vaccine Quad IM 3+ YRS Unknown Completed [facility] SARS-COV-2 COVID-19 PFIZER VACCINE Unknown Completed [facility] Influenza Virus Vaccine Quad IM, Preserv and ABX Free 6 MO-64 YRS (FLUCELVAX) Unknown Completed [facility] H1n1 Vaccine Unknown Completed [facility] Influenza Virus Vaccine Unknown Completed [facility] Influenza Virus Vaccine Quad IM 3+ YRS Unknown Completed [facility] SARS-COV-2 COVID-19 PFIZER VACCINE Unknown Completed [facility] Influenza Virus Vaccine Quad IM, Preserv and ABX Free 6 MO-64 YRS (FLUCELVAX) Unknown Completed [facility] H1n1 Vaccine Unknown Completed [facility] Influenza Virus Vaccine Unknown Completed [facility] Influenza Virus Vaccine Quad IM 3+ YRS Unknown Completed [facility] SARS-COV-2 COVID-19 PFIZER VACCINE Unknown Completed [facility] Influenza Virus Vaccine Quad IM, Preserv and ABX Free 6 MO-64 YRS (FLUCELVAX) Unknown Completed [facility] H1n1 Vaccine Unknown Completed [facility] Influenza Virus Vaccine Quad IM 3+ YRS Unknown Completed [facility] Influenza Virus Vaccine Quad IM, Preserv and ABX Free 6 MO-64 YRS (FLUCELVAX) Unknown Completed [facility] Influenza Virus Vaccine Unknown Completed [facility] SARS-COV-2 COVID-19 PFIZER VACCINE Unknown Completed [facility] H1n1 Vaccine Unknown Completed [facility] Influenza Virus Vaccine Unknown Completed [facility] Influenza Virus Vaccine Quad IM 3+ YRS Unknown Completed [facility] SARS-COV-2 COVID-19 PFIZER VACCINE Unknown Completed [facility] Influenza Virus Vaccine Quad IM, Preserv and ABX Free 6 MO-64 YRS (FLUCELVAX) Unknown Completed [facility] H1n1 Vaccine Unknown Completed [facility] Influenza Virus Vaccine Unknown Completed [facility] Influenza Virus Vaccine Quad IM 3+ YRS Unknown Completed [facility] SARS-COV-2 COVID-19 PFIZER VACCINE Unknown Completed [facility] Influenza Virus Vaccine Quad IM, Preserv and ABX Free 6 MO-64 YRS (FLUCELVAX) Unknown Completed [facility] H1n1 Vaccine Unknown Completed [facility] Influenza Virus Vaccine Unknown Completed [facility] Influenza Virus Vaccine Quad IM 3+ YRS Unknown Completed [facility] SARS-COV-2 COVID-19 PFIZER VACCINE Unknown Completed [facility] Influenza Virus Vaccine Quad IM, Preserv and ABX Free 6 MO-64 YRS (FLUCELVAX) Unknown Completed [facility] H1n1 Vaccine Unknown Completed [facility] Influenza Virus Vaccine Unknown Completed [facility] Influenza Virus Vaccine Quad IM 3+ YRS Unknown Completed [facility] SARS-COV-2 COVID-19 PFIZER VACCINE Unknown Completed [facility] Influenza Virus Vaccine Quad IM, Preserv and ABX Free 6 MO-64 YRS (FLUCELVAX) Unknown Completed [facility] H1n1 Vaccine Unknown Completed [facility] Influenza Virus Vaccine Unknown Completed [facility] Influenza Virus Vaccine Quad IM 3+ YRS Unknown Completed [facility] SARS-COV-2 COVID-19 PFIZER VACCINE Unknown Completed [facility] Influenza Virus Vaccine Quad IM, Preserv and ABX Free 6 MO-64 YRS (FLUCELVAX) Unknown Completed [facility] H1n1 Vaccine Unknown Completed [facility] Influenza Virus Vaccine Unknown Completed [facility] Influenza Virus Vaccine Quad IM 3+ YRS Unknown Completed [facility] SARS-COV-2 COVID-19 PFIZER VACCINE Unknown Completed [facility] Influenza Virus Vaccine Quad IM, Preserv and ABX Free 6 MO-64 YRS (FLUCELVAX) Unknown Completed [facility] H1n1 Vaccine Unknown Completed [facility] Influenza Virus Vaccine Unknown Completed [facility] Influenza Virus Vaccine Quad IM 3+ YRS Unknown Completed [facility] SARS-COV-2 COVID-19 PFIZER VACCINE Unknown Completed [facility] Influenza Virus Vaccine Quad IM, Preserv and ABX Free 6 MO-64 YRS (FLUCELVAX) Unknown Completed [facility] H1n1 Vaccine Unknown Completed [facility] Influenza Virus Vaccine Unknown Completed [facility] Influenza Virus Vaccine Quad IM 3+ YRS Unknown Completed [facility] SARS-COV-2 COVID-19 PFIZER VACCINE Unknown Completed [facility] Influenza Virus Vaccine Quad IM, Preserv and ABX Free 6 MO-64 YRS (FLUCELVAX) Unknown Completed [facility] H1n1 Vaccine Unknown Completed [facility] Influenza Virus Vaccine Unknown Completed [facility] Influenza Virus Vaccine Quad IM 3+ YRS Unknown Completed [facility] SARS-COV-2 COVID-19 PFIZER VACCINE Unknown Completed [facility] Influenza Virus Vaccine Quad IM, Preserv and ABX Free 6 MO-64 YRS (FLUCELVAX) Unknown Completed [facility] H1n1 Vaccine Unknown Completed [facility] Influenza Virus Vaccine Quad IM 3+ YRS Unknown Completed [facility] Influenza Virus Vaccine Quad IM, Preserv and ABX Free 6 MO-64 YRS (FLUCELVAX) Unknown Completed [facility] Influenza Virus Vaccine Unknown Completed [facility] SARS-COV-2 COVID-19 PFIZER VACCINE Unknown Completed [facility] H1n1 Vaccine Unknown [facility]ine [facility] Completed [facility] Influenza Virus Vaccine Quad IM 3+ YRS Unknown Completed [facility] SARS-COV-2 COVID-19 PFIZER VACCINE Unknown Completed [facility] Influenza Virus Vaccine Quad IM, Preserv and ABX Free 6 MO-64 YRS (FLUCELVAX) Unknown Completed [facility] H1n1 Vaccine Unknown Completed [facility] Influenza Virus Vaccine Unknown Completed [facility] Influenza Virus Vaccine Quad IM 3+ YRS Unknown Completed [facility] SARS-COV-2 COVID-19 PFIZER VACCINE Unknown Completed [facility] Influenza Virus Vaccine Quad IM, Preserv and ABX Free 6 MO-64 YRS (FLUCELVAX) Unknown Completed [facility] H1n1 Vaccine Unknown Completed [facility] Influenza Virus Vaccine Quad IM 3+ YRS Unknown Completed [facility] Influenza Virus Vaccine Quad IM, Preserv and ABX Free 6 MO-64 YRS (FLUCELVAX) Unknown Completed [facility] Influenza Virus Vaccine Unknown Completed [facility] SARS-COV-2 COVID-19 PFIZER VACCINE Unknown Completed [facility] H1n1 Vaccine Unknown Completed [facility] Influenza Virus Vaccine Unknown Completed [facility] Influenza Virus Vaccine Quad IM 3+ YRS Unknown Completed [facility] SARS-COV-2 COVID-19 PFIZER VACCINE Unknown Completed [facility] Influenza Virus Vaccine Quad IM, Preserv and ABX Free 6 MO-64 YRS (FLUCELVAX) Unknown Completed [facility] H1n1 Vaccine Unknown Completed [facility] Influenza Virus Vaccine Unknown Completed [facility] Influenza Virus Vaccine Quad IM 3+ YRS Unknown Completed [facility] SARS-COV-2 COVID-19 PFIZER VACCINE Unknown Completed [facility] Influenza Virus Vaccine Quad IM, Preserv and ABX Free 6 MO-64 YRS (FLUCELVAX) Unknown Completed [facility] H1n1 Vaccine Unknown Completed [facility] Influenza Virus Vaccine Quad IM 3+ YRS Unknown Completed [facility] Influenza Virus Vaccine Quad IM, Preserv and ABX Free 6 MO-64 YRS (FLUCELVAX) Unknown Completed [facility] Influenza Virus Vaccine Unknown Completed [facility] SARS-COV-2 COVID-19 PFIZER VACCINE Unknown Completed [facility] H1n1 Vaccine Unknown [facility]ine [facility] Completed [facility] Influenza Virus Vaccine Quad IM 3+ YRS Unknown Completed [facility] SARS-COV-2 COVID-19 PFIZER VACCINE Unknown Completed [facility] Influenza Virus Vaccine Quad IM, Preserv and ABX Free 6 MO-64 YRS (FLUCELVAX) Unknown Completed [facility] H1n1 Vaccine Unknown Completed [facility] Influenza Virus Vaccine Unknown Completed [facility] Influenza Virus Vaccine Quad IM 3+ YRS Unknown Completed [facility] SARS-COV-2 COVID-19 PFIZER VACCINE Unknown Completed [facility] Influenza Virus Vaccine Quad IM, Preserv and ABX Free 6 MO-64 YRS (FLUCELVAX) Unknown Completed [facility] H1n1 Vaccine Unknown Completed [facility] Influenza Virus Vaccine Unknown Completed [facility] Influenza Virus Vaccine Quad IM 3+ YRS Unknown Completed [facility] SARS-COV-2 COVID-19 PFIZER VACCINE Unknown Completed [facility] Influenza Virus Vaccine Quad IM, Preserv and ABX Free 6 MO-64 YRS (FLUCELVAX) Unknown Completed [facility] H1n1 Vaccine Unknown Completed [facility] Influenza Virus Vaccine Unknown Completed [facility] Influenza Virus Vaccine Quad IM 3+ YRS Unknown Completed [facility] SARS-COV-2 COVID-19 PFIZER VACCINE Unknown Completed [facility] Influenza Virus Vaccine Quad IM, Preserv and ABX Free 6 MO-64 YRS (FLUCELVAX) Unknown Completed [facility] H1n1 Vaccine Unknown Completed [facility] Influenza Virus Vaccine Unknown Completed [facility] Influenza Virus Vaccine Quad IM 3+ YRS Unknown Completed [facility] SARS-COV-2 COVID-19 PFIZER VACCINE Unknown Completed [facility] Influenza Virus Vaccine Quad IM, Preserv and ABX Free 6 MO-64 YRS (FLUCELVAX) Unknown Completed [facility] H1n1 Vaccine Unknown Completed [facility] Influenza Virus Vaccine Unknown Completed [facility] Influenza Virus Vaccine Quad IM 3+ YRS Unknown Completed [facility] SARS-COV-2 COVID-19 PFIZER VACCINE Unknown Completed [facility] Influenza Virus Vaccine Quad IM, Preserv and ABX Free 6 MO-64 YRS (FLUCELVAX) Unknown Completed [facility] H1n1 Vaccine Unknown Completed [facility] Influenza Virus Vaccine Unknown Completed [facility] Influenza Virus Vaccine Quad IM 3+ YRS Unknown Completed [facility] SARS-COV-2 COVID-19 PFIZER VACCINE Unknown Completed [facility] Influenza Virus Vaccine Quad IM, Preserv and ABX Free 6 MO-64 YRS (FLUCELVAX) Unknown Completed [facility] H1n1 Vaccine Unknown Completed [facility] Influenza Virus Vaccine Unknown Completed [facility] Influenza Virus Vaccine Quad IM 3+ YRS Unknown Completed [facility] SARS-COV-2 COVID-19 PFIZER VACCINE Unknown Completed [facility] Influenza Virus Vaccine Quad IM, Preserv and ABX Free 6 MO-64 YRS (FLUCELVAX) Unknown Completed [facility] H1n1 Vaccine Unknown Completed [facility] Influenza Virus Vaccine Unknown Completed [facility] Influenza Virus Vaccine Quad IM 3+ YRS Unknown Completed [facility] SARS-COV-2 COVID-19 PFIZER VACCINE Unknown Completed [facility] Influenza Virus Vaccine Quad IM, Preserv and ABX Free 6 MO-64 YRS (FLUCELVAX) Unknown Completed [facility] H1n1 Vaccine Unknown Completed [facility] Influenza Virus Vaccine Unknown Completed [facility] Influenza Virus Vaccine Quad IM 3+ YRS Unknown Completed [facility] SARS-COV-2 COVID-19 PFIZER VACCINE Unknown Completed [facility] Influenza Virus Vaccine Quad IM, Preserv and ABX Free 6 MO-64 YRS (FLUCELVAX) Unknown Completed [facility] H1n1 Vaccine Unknown Completed [facility] Influenza Virus Vaccine Unknown Completed [facility] Influenza Virus Vaccine Quad IM 3+ YRS Unknown Completed [facility] SARS-COV-2 COVID-19 PFIZER VACCINE Unknown Completed [facility] Influenza Virus Vaccine Quad IM, Preserv and ABX Free 6 MO-64 YRS (FLUCELVAX) Unknown Completed [facility] H1n1 Vaccine Unknown Completed [facility] Influenza Virus Vaccine Unknown Completed [facility] Influenza Virus Vaccine Quad IM 3+ YRS Unknown Completed [facility] SARS-COV-2 COVID-19 PFIZER VACCINE Unknown Completed [facility] Influenza Virus Vaccine Quad IM, Preserv and ABX Free 6 MO-64 YRS (FLUCELVAX) Unknown Completed [facility] H1n1 Vaccine Unknown Completed [facility] Influenza Virus Vaccine Unknown Completed [facility] Influenza Virus Vaccine Quad IM 3+ YRS Unknown Completed [facility] SARS-COV-2 COVID-19 PFIZER VACCINE Unknown Completed [facility] Influenza Virus Vaccine Quad IM, Preserv and ABX Free 6 MO-64 YRS (FLUCELVAX) Unknown Completed [facility] H1n1 Vaccine Unknown Completed [facility] Influenza Virus Vaccine Unknown Completed [facility] Influenza Virus Vaccine Quad IM 3+ YRS Unknown Completed [facility] SARS-COV-2 COVID-19 PFIZER VACCINE Unknown Completed [facility] Influenza Virus Vaccine Quad IM, Preserv and ABX Free 6 MO-64 YRS (FLUCELVAX) Unknown Completed [facility] H1n1 Vaccine Unknown Completed [facility] Influenza Virus Vaccine Unknown Completed [facility] Influenza Virus Vaccine Quad IM 3+ YRS Unknown Completed [facility] SARS-COV-2 COVID-19 PFIZER VACCINE Unknown Completed [facility] Influenza Virus Vaccine Quad IM, Preserv and ABX Free 6 MO-64 YRS (FLUCELVAX) Unknown Completed [facility] H1n1 Vaccine Unknown Completed [facility] Influenza Virus Vaccine Unknown Completed [facility] Influenza Virus Vaccine Quad IM 3+ YRS Unknown Completed [facility] SARS-COV-2 COVID-19 PFIZER VACCINE Unknown Completed [facility] Influenza Virus Vaccine Quad IM, Preserv and ABX Free 6 MO-64 YRS (FLUCELVAX) Unknown Completed [facility] H1n1 Vaccine Unknown Completed [facility] Influenza Virus Vaccine Unknown Completed [facility] Influenza Virus Vaccine Quad IM 3+ YRS Unknown Completed [facility] SARS-COV-2 COVID-19 PFIZER VACCINE Unknown Completed [facility] Influenza Virus Vaccine Quad IM, Preserv and ABX Free 6 MO-64 YRS (FLUCELVAX) Unknown Completed [facility] H1n1 Vaccine Unknown Completed [facility] Influenza Virus Vaccine Unknown Completed [facility] Influenza Virus Vaccine Quad IM 3+ YRS Unknown Completed [facility] SARS-COV-2 COVID-19 PFIZER VACCINE Unknown Completed [facility] Influenza Virus Vaccine Quad IM, Preserv and ABX Free 6 MO-64 YRS (FLUCELVAX) Unknown Completed [facility] H1n1 Vaccine Unknown Completed [facility] Influenza Virus Vaccine Unknown Completed [facility] Influenza Virus Vaccine Quad IM 3+ YRS Unknown Completed [facility] SARS-COV-2 COVID-19 PFIZER VACCINE Unknown Completed [facility] Influenza Virus Vaccine Quad IM, Preserv and ABX Free 6 MO-64 YRS (FLUCELVAX) Unknown Completed [facility] H1n1 Vaccine Unknown Completed [facility] Influenza Virus Vaccine Unknown Completed [facility] Influenza Virus Vaccine Quad IM 3+ YRS Unknown Completed [facility] SARS-COV-2 COVID-19 PFIZER VACCINE Unknown Completed [facility] Influenza Virus Vaccine Quad IM, Preserv and ABX Free 6 MO-64 YRS (FLUCELVAX) Unknown Completed [facility] H1n1 Vaccine Unknown Completed [facility] Influenza Virus Vaccine Unknown Completed [facility] Influenza Virus Vaccine Quad IM 3+ YRS Unknown Completed [facility] SARS-COV-2 COVID-19 PFIZER VACCINE Unknown Completed [facility] Influenza Virus Vaccine Quad IM, Preserv and ABX Free 6 MO-64 YRS (FLUCELVAX) Unknown Completed [facility] H1n1 Vaccine Unknown Completed [facility] Influenza Virus Vaccine Unknown Completed [facility] Influenza Virus Vaccine Quad IM 3+ YRS Unknown Completed [facility] SARS-COV-2 COVID-19 PFIZER VACCINE Unknown Completed [facility] Influenza Virus Vaccine Quad IM, Preserv and ABX Free 6 MO-64 YRS (FLUCELVAX) Unknown Completed [facility] H1n1 Vaccine Unknown Completed [facility] Influenza Virus Vaccine Unknown Completed [facility] Influenza Virus Vaccine Quad IM 3+ YRS Unknown Completed [facility] SARS-COV-2 COVID-19 PFIZER VACCINE Unknown Completed [facility] Influenza Virus Vaccine Quad IM, Preserv and ABX Free 6 MO-64 YRS (FLUCELVAX) Unknown Completed [facility] H1n1 Vaccine Unknown Completed [facility] Influenza Virus Vaccine Unknown Completed [facility] Influenza Virus Vaccine Quad IM 3+ YRS Unknown Completed [facility] SARS-COV-2 COVID-19 PFIZER VACCINE Unknown Completed [facility] Influenza Virus Vaccine Quad IM, Preserv and ABX Free 6 MO-64 YRS (FLUCELVAX) Unknown Completed [facility] H1n1 Vaccine Unknown Completed [facility] Influenza Virus Vaccine Unknown Completed [facility] Influenza Virus Vaccine Quad IM 3+ YRS Unknown Completed [facility] SARS-COV-2 COVID-19 PFIZER VACCINE Unknown Completed [facility] Influenza Virus Vaccine Quad IM, Preserv and ABX Free 6 MO-64 YRS (FLUCELVAX) Unknown Completed [facility] H1n1 Vaccine Unknown Completed [facility] Influenza Virus Vaccine Unknown Completed [facility] Influenza Virus Vaccine Quad IM 3+ YRS Unknown Completed [facility] SARS-COV-2 COVID-19 PFIZER VACCINE Unknown Completed [facility] Influenza Virus Vaccine Quad IM, Preserv and ABX Free 6 MO-64 YRS (FLUCELVAX) Unknown Completed [facility] H1n1 Vaccine Unknown Completed [facility] Influenza Virus Vaccine Unknown Completed [facility] Influenza Virus Vaccine Quad IM 3+ YRS Unknown Completed [facility] SARS-COV-2 COVID-19 PFIZER VACCINE Unknown Completed [facility] Influenza Virus Vaccine Quad IM, Preserv and ABX Free 6 MO-64 YRS (FLUCELVAX) Unknown Completed [facility] H1n1 Vaccine Unknown Completed [facility] Influenza Virus Vaccine Unknown Completed [facility] Influenza Virus Vaccine Quad IM 3+ YRS Unknown Completed [facility] SARS-COV-2 COVID-19 PFIZER VACCINE Unknown Completed [facility] Influenza Virus Vaccine Quad IM, Preserv and ABX Free 6 MO-64 YRS (FLUCELVAX) Unknown Completed [facility] H1n1 Vaccine Unknown Completed [facility] Influenza Virus Vaccine Unknown Completed [facility] Influenza Virus Vaccine Quad IM 3+ YRS Unknown Completed [facility] SARS-COV-2 COVID-19 PFIZER VACCINE Unknown Completed [facility] Influenza Virus Vaccine Quad IM, Preserv and ABX Free 6 MO-64 YRS (FLUCELVAX) Unknown Completed [facility] H1n1 Vaccine Unknown Completed [facility] Influenza Virus Vaccine Unknown Completed [facility] Influenza Virus Vaccine Quad IM 3+ YRS Unknown Completed [facility] SARS-COV-2 COVID-19 PFIZER VACCINE Unknown Completed [facility] Influenza Virus Vaccine Quad IM, Preserv and ABX Free 6 MO-64 YRS (FLUCELVAX) Unknown Completed [facility] H1n1 Vaccine Unknown Completed [facility] Influenza Virus Vaccine Unknown Completed [facility] Influenza Virus Vaccine Quad IM 3+ YRS Unknown Completed [facility] SARS-COV-2 COVID-19 PFIZER VACCINE Unknown Completed [facility] Influenza Virus Vaccine Quad IM, Preserv and ABX Free 6 MO-64 YRS (FLUCELVAX) Unknown Completed [facility] H1n1 Vaccine Unknown Completed [facility] Influenza Virus Vaccine Unknown Completed [facility] Influenza Virus Vaccine Quad IM 3+ YRS Unknown Completed [facility] SARS-COV-2 COVID-19 PFIZER VACCINE Unknown Completed [facility] Influenza Virus Vaccine Quad IM, Preserv and ABX Free 6 MO-64 YRS (FLUCELVAX) Unknown Completed [facility] H1n1 Vaccine Unknown Completed [facility] Influenza Virus Vaccine Unknown Completed [facility] Influenza Virus Vaccine Quad IM 3+ YRS Unknown Completed [facility] SARS-COV-2 COVID-19 PFIZER VACCINE Unknown Completed [facility] Influenza Virus Vaccine Quad IM, Preserv and ABX Free 6 MO-64 YRS (FLUCELVAX) Unknown Completed [facility] H1n1 Vaccine Unknown Completed [facility] Influenza Virus Vaccine Unknown Completed [facility] Influenza Virus Vaccine Quad IM 3+ YRS Unknown Completed [facility] SARS-COV-2 COVID-19 PFIZER VACCINE Unknown Completed [facility] Influenza Virus Vaccine Quad IM, Preserv and ABX Free 6 MO-64 YRS (FLUCELVAX) Unknown Completed [facility] H1n1 Vaccine Unknown Completed [facility] Influenza Virus Vaccine Unknown Completed [facility] Influenza Virus Vaccine Quad IM 3+ YRS Unknown Completed [facility] SARS-COV-2 COVID-19 PFIZER VACCINE Unknown Completed [facility] Influenza Virus Vaccine Quad IM, Preserv and ABX Free 6 MO-64 YRS (FLUCELVAX) Unknown Completed [facility] H1n1 Vaccine Unknown Completed [facility] Influenza Virus Vaccine Unknown Completed [facility] Influenza Virus Vaccine Quad IM 3+ YRS Unknown Completed [facility] SARS-COV-2 COVID-19 PFIZER VACCINE Unknown Completed [facility] Influenza Virus Vaccine Quad IM, Preserv and ABX Free 6 MO-64 YRS (FLUCELVAX) Unknown Completed [facility] H1n1 Vaccine Unknown Completed [facility] Influenza Virus Vaccine Unknown Completed [facility] Influenza Virus Vaccine Quad IM 3+ YRS Unknown Completed [facility] SARS-COV-2 COVID-19 PFIZER VACCINE Unknown Completed [facility] Influenza Virus Vaccine Quad IM, Preserv and ABX Free 6 MO-64 YRS (FLUCELVAX) Unknown Completed [facility] H1n1 Vaccine Unknown Completed [facility] Influenza Virus Vaccine Unknown Completed [facility] Influenza Virus Vaccine Quad IM 3+ YRS Unknown Completed [facility] SARS-COV-2 COVID-19 PFIZER VACCINE Unknown Completed [facility] Influenza Virus Vaccine Quad IM, Preserv and ABX Free 6 MO-64 YRS (FLUCELVAX) Unknown Completed [facility] H1n1 Vaccine Unknown Completed [facility] Influenza Virus Vaccine Unknown Completed [facility] Influenza Virus Vaccine Quad IM 3+ YRS Unknown Completed [facility] SARS-COV-2 COVID-19 PFIZER VACCINE Unknown Completed [facility] Influenza Virus Vaccine Quad IM, Preserv and ABX Free 6 MO-64 YRS (FLUCELVAX) Unknown Completed [facility] H1n1 Vaccine Unknown Completed [facility] Influenza Virus Vaccine Unknown Completed [facility] Influenza Virus Vaccine Quad IM 3+ YRS Unknown Completed [facility] SARS-COV-2 COVID-19 PFIZER VACCINE Unknown Completed [facility] Influenza Virus Vaccine Quad IM, Preserv and ABX Free 6 MO-64 YRS (FLUCELVAX) Unknown Completed [facility] H1n1 Vaccine Unknown Completed [facility] Influenza Virus Vaccine Unknown Completed [facility] Influenza Virus Vaccine Quad IM 3+ YRS Unknown Completed [facility] SARS-COV-2 COVID-19 PFIZER VACCINE Unknown Completed [facility] Influenza Virus Vaccine Quad IM, Preserv and ABX Free 6 MO-64 YRS (FLUCELVAX) Unknown Completed [facility] H1n1 Vaccine Unknown Completed [facility] Influenza Virus Vaccine Unknown Completed [facility] Influenza Virus Vaccine Quad IM 3+ YRS Unknown Completed [facility] SARS-COV-2 COVID-19 PFIZER VACCINE Unknown Completed [facility] Influenza Virus Vaccine Quad IM, Preserv and ABX Free 6 MO-64 YRS (FLUCELVAX) Unknown Completed [facility] H1n1 Vaccine Unknown Completed [facility] Influenza Virus Vaccine Unknown Completed [facility] Influenza Virus Vaccine Quad IM 3+ YRS Unknown Completed [facility] SARS-COV-2 COVID-19 PFIZER VACCINE Unknown Completed [facility] Influenza Virus Vaccine Quad IM, Preserv and ABX Free 6 MO-64 YRS (FLUCELVAX) Unknown Completed [facility] Flu Injectable MDCK Pres-Free (FLUCELVAX) Unknown Completed [facility] H1n1 Vaccine Unknown Completed [facility] Influenza Virus Vaccine Unknown Completed [facility] Influenza Virus Vaccine Quad IM 3+ YRS Unknown Completed [facility] SARS-COV-2 COVID-19 PFIZER VACCINE Unknown Completed [facility] Influenza Virus Vaccine Quad IM, Preserv and ABX Free 6 MO-64 YRS (FLUCELVAX) Unknown Completed [facility] Flu Injectable MDCK Pres-Free (FLUCELVAX) Unknown Completed [facility] H1n1 Vaccine Unknown Completed [facility] Influenza Virus Vaccine Unknown Completed [facility] Influenza Virus Vaccine Quad IM 3+ YRS Unknown Completed [facility] SARS-COV-2 COVID-19 PFIZER VACCINE Unknown Completed [facility] Influenza Virus Vaccine Quad IM, Preserv and ABX Free 6 MO-64 YRS (FLUCELVAX) Unknown Completed [facility] Flu Injectable MDCK Pres-Free (FLUCELVAX) Unknown Completed [facility] H1n1 Vaccine Unknown Completed [facility] Influenza Virus Vaccine Unknown Completed [facility] Influenza Virus Vaccine Quad IM 3+ YRS Unknown Completed [facility] SARS-COV-2 COVID-19 PFIZER VACCINE Unknown Completed [facility] Influenza Virus Vaccine Quad IM, Preserv and ABX Free 6 MO-64 YRS (FLUCELVAX) Unknown Completed [facility] Flu Injectable MDCK Pres-Free (FLUCELVAX) Unknown Completed [facility] H1n1 Vaccine Unknown Completed [facility] Influenza Virus Vaccine Unknown Completed [facility] Influenza Virus Vaccine Quad IM 3+ YRS Unknown Completed [facility] SARS-COV-2 COVID-19 PFIZER VACCINE Unknown Completed [facility] Influenza Virus Vaccine Quad IM, Preserv and ABX Free 6 MO-64 YRS (FLUCELVAX) Unknown Completed [facility] Flu Injectable MDCK Pres-Free (FLUCELVAX) Unknown Completed [facility] H1n1 Vaccine Unknown Completed [facility] Influenza Virus Vaccine Unknown Completed [facility] Influenza Virus Vaccine Quad IM 3+ YRS Unknown Completed [facility] SARS-COV-2 COVID-19 PFIZER VACCINE Unknown Completed [facility] Influenza Virus Vaccine Quad IM, Preserv and ABX Free 6 MO-64 YRS (FLUCELVAX) Unknown Completed [facility] Flu Injectable MDCK Pres-Free (FLUCELVAX) Unknown Completed [facility] H1n1 Vaccine Unknown Completed [facility] Influenza Virus Vaccine Unknown Completed [facility] Influenza Virus Vaccine Quad IM 3+ YRS Unknown Completed [facility] SARS-COV-2 COVID-19 PFIZER VACCINE Unknown Completed [facility] Influenza Virus Vaccine Quad IM, Preserv and ABX Free 6 MO-64 YRS (FLUCELVAX) Unknown Completed [facility] Flu Injectable MDCK Pres-Free (FLUCELVAX) Unknown Completed [facility] Vital Signs Vital Name Observation Time Observation Value Comments S ource Systolic blood pressure 2024-05-03 15:31:00 122 mm[Hg] [facility] Diastolic blood pressure 2024-05-03 15:31:00 82 mm[Hg] [facility] Heart rate 2024-05-03 15:31:00 84 /min [facility] Body height 2024-05-03 15:31:00 142.2 cm [facility] Body weight 2024-05-03 15:31:00 62.097 kg [facility] BMI 2024-05-03 15:31:00 30.69 kg/m2 [facility] Oxygen saturation in Arterial blood by Pulse oximetry 2024-05-03 15:31:00 99 /min [facility] Systolic blood pressure 2024-04-12 16:56:00 115 mm[Hg] [facility] Diastolic blood pressure 2024-04-12 16:56:00 79 mm[Hg] [facility] Heart rate 2024-04-12 16:56:00 91 /min [facility] Respiratory rate 2024-04-12 16:56:00 18 /min [facility] Body height 2024-04-12 16:56:00 142.2 cm [facility] Body weight 2024-04-12 16:56:00 61.292 kg [facility] BMI 2024-04-12 16:56:00 30.29 kg/m2 [facility] Oxygen saturation in Arterial blood by Pulse oximetry 2024-04-12 16:56:00 98 /min [facility] Systolic blood pressure 2024-03-11 13:47:00 127 mm[Hg] [facility] Diastolic blood pressure 2024-03-11 13:47:00 71 mm[Hg] [facility] Heart rate 2024-03-11 13:47:00 96 /min [facility] Body temperature 2024-03-11 13:47:00 36.33 Beatriz [facility] Respiratory rate 2024-03-11 13:47:00 18 /min [facility] Body height 2024-03-11 13:47:00 142.2 cm [facility] Body weight 2024-03-11 13:47:00 62.823 kg [facility] BMI 2024-03-11 13:47:00 31.05 kg/m2 [facility] Oxygen saturation in Arterial blood by Pulse oximetry 2024-03-11 13:47:00 99 /min [facility] Systolic blood pressure 2024-03-09 16:39:00 114 mm[Hg] [facility] Diastolic blood pressure 2024-03-09 16:39:00 77 mm[Hg] [facility] Heart rate 2024-03-09 16:39:00 95 /min [facility] Body temperature 2024-03-09 16:39:00 36.72 Beatriz [facility] Body height 2024-03-09 16:39:00 142.2 cm [facility] Body weight 2024-03-09 16:39:00 62.732 kg [facility] BMI 2024-03-09 16:39:00 31.01 kg/m2 [facility] Oxygen saturation in Arterial blood by Pulse oximetry 2024-03-09 16:39:00 95 /min [facility] Systolic blood pressure 2024-03-09 16:36:00 114 mm[Hg] [facility] Diastolic blood pressure 2024-03-09 16:36:00 77 mm[Hg] [facility] Heart rate 2024-03-09 16:36:00 95 /min [facility] Body temperature 2024-03-09 16:36:00 36.72 Beatriz [facility] Body height 2024-03-09 16:36:00 142.2 cm [facility] Body weight 2024-03-09 16:36:00 62.732 kg [facility] BMI 2024-03-09 16:36:00 31.01 kg/m2 [facility] Oxygen saturation in Arterial blood by Pulse oximetry 2024-03-09 16:36:00 98 /min [facility] Systolic blood pressure 2024-03-08 16:08:00 142 mm[Hg] [facility] Diastolic blood pressure 2024-03-08 16:08:00 84 mm[Hg] [facility] Heart rate 2024-03-08 16:02:00 81 /min [facility] Respiratory rate 2024-03-08 16:02:00 18 /min [facility] Body height 2024-03-08 16:02:00 142.2 cm [facility] 2024-03-08 16:02:00 63.776 kg [facility] BMI 2024-03-08 16:02:00 31.52 kg/m2 [facility] Oxygen saturation in Arterial blood by Pulse oximetry 2024-03-08 16:02:00 98 /min [facility] Systolic blood pressure 2024-02-05 20:59:00 144 mm[Hg] [facility] Diastolic blood pressure 2024-02-05 20:59:00 82 mm[Hg] [facility] Heart rate 2024-02-05 20:50:00 87 /min [facility] Respiratory rate 2024-02-05 20:50:00 18 /min [facility] Body height 2024-02-05 20:50:00 142.2 cm [facility] Body weight 2024-02-05 20:50:00 62.506 kg [facility] BMI 2024-02-05 20:50:00 30.89 kg/m2 [facility] Oxygen saturation in Arterial blood by Pulse oximetry 2024-02-05 20:50:00 97 /min [facility] Systolic blood pressure 2024-01-28 13:37:00 100 mm[Hg] [facility] Diastolic blood pressure 2024-01-28 13:37:00 68 mm[Hg] [facility] Heart rate 2024-01-28 13:37:00 87 /min [facility] Oxygen saturation in Arterial blood by Pulse oximetry 2024-01-28 13:37:00 97 /min [facility] Body temperature 2024-01-28 13:36:00 36.61 Beatriz [facility] Respiratory rate 2024-01-28 13:36:00 18 /min [facility] Body height 2024-01-28 13:36:00 142.2 cm [facility] Body weight 2024-01-28 13:36:00 61.689 kg [facility] BMI 2024-01-28 13:36:00 30.49 kg/m2 [facility] Systolic blood pressure 2024-01-13 18:19:00 123 mm[Hg] [facility] Diastolic blood pressure 2024-01-13 18:19:00 86 mm[Hg] [facility] Heart rate 2024-01-13 18:19:00 89 /min [facility] Body temperature 2024-01-13 18:19:00 36.22 Beatriz [facility] Body height 2024-01-13 18:19:00 142.2 cm [facility] Body weight 2024-01-13 18:19:00 62.143 kg [facility] BMI 2024-01-13 18:19:00 30.71 kg/m2 [facility] Oxygen saturation in Arterial blood by Pulse oximetry 2024-01-13 18:19:00 96 /min [facility] Systolic blood pressure 2023-12-15 19:41:00 138 mm[Hg] [facility] Diastolic blood pressure 2023-12-15 19:41:00 88 mm[Hg] [facility] Heart rate 2023-12-15 19:36:00 95 /min [facility] Body temperature 2023-12-15 19:36:00 37.17 Beatriz [facility] Body height 2023-12-15 19:36:00 121.9 cm [facility] Body weight 2023-12-15 19:36:00 63.912 kg [facility] BMI 2023-12-15 19:36:00 43.00 kg/m2 [facility] Oxygen saturation in Arterial blood by Pulse oximetry 2023-12-15 19:36:00 94 /min [facility] Systolic blood pressure 2023-11-24 04:00:00 103 mm[Hg] [facility] Diastolic blood pressure 2023-11-24 04:00:00 59 mm[Hg] [facility] Heart rate 2023-11-24 04:00:00 78 /min [facility] Respiratory rate 2023-11-24 04:00:00 20 /min [facility] Oxygen saturation in Arterial blood by Pulse oximetry 2023-11-24 04:00:00 96 /min [facility] Body temperature 2023-11-24 03:37:00 36.83 Beatriz [facility] Body height 2023-11-24 01:09:00 142.2 cm [facility] Body weight 2023-11-24 01:09:00 63.504 kg [facility] BMI 2023-11-24 01:09:00 31.39 kg/m2 [facility] Systolic blood pressure 2023-11-17 16:41:00 121 mm[Hg] [facility] Diastolic blood pressure 2023-11-17 16:41:00 81 mm[Hg] [facility] Heart rate 2023-11-17 16:41:00 92 /min [facility] 2023-11-17 16:41:00 18 /min [facility] Body height 2023-11-17 16:41:00 142.2 cm [facility] Body weight 2023-11-17 16:41:00 65.137 kg [facility] BMI 2023-11-17 16:41:00 32.19 kg/m2 [facility] Oxygen saturation in Arterial blood by Pulse oximetry 2023-11-17 16:41:00 96 /min [facility] Systolic blood pressure 2023-11-03 15:48:00 129 mm[Hg] [facility] Diastolic blood pressure 2023-11-03 15:48:00 72 mm[Hg] [facility] Heart rate 2023-11-03 15:48:00 92 /min [facility] Respiratory rate 2023-11-03 15:48:00 20 /min [facility] Body height 2023-11-03 15:48:00 142.2 cm [facility] Body weight 2023-11-03 15:48:00 65.046 kg [facility] BMI 2023-11-03 15:48:00 32.15 kg/m2 [facility] Oxygen saturation in Arterial blood by Pulse oximetry 2023-11-03 15:48:00 97 /min [facility] Systolic blood pressure 2023-10-02 15:22:00 132 mm[Hg] [facility] Diastolic blood pressure 2023-10-02 15:22:00 75 mm[Hg] [facility] Heart rate 2023-10-02 15:22:00 89 /min [facility] Body temperature 2023-10-02 15:22:00 37 Beatriz [facility] Body height 2023-10-02 15:22:00 142.2 cm [facility] Body weight 2023-10-02 15:22:00 65.862 kg [facility] BMI 2023-10-02 15:22:00 32.55 kg/m2 [facility] Systolic blood pressure 2023-09-23 18:00:00 137 mm[Hg] [facility] Diastolic blood pressure 2023-09-23 18:00:00 80 mm[Hg] [facility] Heart rate 2023-09-23 18:00:00 81 /min [facility] Respiratory rate 2023-09-23 18:00:00 18 /min [facility] Oxygen saturation in Arterial blood by Pulse oximetry 2023-09-23 18:00:00 97 /min [facility] Body temperature 2023-09-23 14:50:00 37.33 Beatriz [facility] Body height 2023-09-23 14:50:00 142.2 cm [facility] Body weight 2023-09-23 14:50:00 65.772 kg [facility] BMI 2023-09-23 14:50:00 32.51 kg/m2 [facility] Systolic blood pressure 2023-09-23 14:21:00 142 mm[Hg] [facility] Diastolic blood pressure 2023-09-23 14:21:00 92 mm[Hg] [facility] Heart rate 2023-09-23 14:20:00 104 /min [facility] Body temperature 2023-09-23 14:20:00 36.67 Beatriz [facility] Respiratory rate 2023-09-23 14:20:00 16 /min [facility] Body height 2023-09-23 14:20:00 142.2 cm [facility] Body weight 2023-09-23 14:20:00 64.411 kg [facility] BMI 2023-09-23 14:20:00 31.84 kg/m2 [facility] Oxygen saturation in Arterial blood by Pulse oximetry 2023-09-23 14:20:00 97 /min [facility] Systolic blood pressure 2023-09-07 14:33:00 123 mm[Hg] [facility] Diastolic blood pressure 2023-09-07 14:33:00 79 mm[Hg] [facility] Heart rate 2023-09-07 14:33:00 78 /min [facility] Body temperature 2023-09-07 14:33:00 36.39 Beatriz [facility] Body height 2023-09-07 14:33:00 142.2 cm [facility] Body weight 2023-09-07 14:33:00 65.772 kg [facility] BMI 2023-09-07 14:33:00 32.51 kg/m2 [facility] Oxygen saturation in Arterial blood by Pulse oximetry 2023-09-07 14:33:00 96 /min [facility] Systolic blood pressure 2023-08-03 16:47:00 112 mm[Hg] [facility] Diastolic blood pressure 2023-08-03 16:47:00 75 mm[Hg] [facility] Heart rate 2023-08-03 16:47:00 92 /min [facility] Oxygen saturation in Arterial blood by Pulse oximetry 2023-08-03 16:47:00 96 /min [facility] Respiratory rate 2023-08-03 16:43:00 19 /min [facility] Body weight 2023-08-03 16:43:00 64.411 kg [facility] BMI 2023-08-03 16:43:00 31.84 kg/m2 [facility] Systolic blood pressure 2023-06-25 14:47:00 122 mm[Hg] [facility] Diastolic blood pressure 2023-06-25 14:47:00 81 mm[Hg] [facility] Heart rate 2023-06-25 14:47:00 83 /min [facility] Oxygen saturation in Arterial blood by Pulse oximetry 2023-06-25 14:47:00 99 /min [facility] Body temperature 2023-06-25 14:46:00 36.5 Beatriz [facility] Body height 2023-06-25 14:46:00 142.2 cm [facility] Body weight 2023-06-25 14:46:00 64.864 kg [facility] BMI 2023-06-25 14:46:00 32.06 kg/m2 [facility] Systolic blood pressure 2023-06-08 14:08:00 114 mm[Hg] [facility] Diastolic blood pressure 2023-06-08 14:08:00 77 mm[Hg] [facility] Heart rate 2023-06-08 14:08:00 81 /min [facility] Body temperature 2023-06-08 14:08:00 36.44 Beatriz [facility] Respiratory rate 2023-06-08 14:08:00 18 /min [facility] Body height 2023-06-08 14:08:00 142.2 cm [facility] Body weight 2023-06-08 14:08:00 62.687 kg [facility] BMI 2023-06-08 14:08:00 30.98 kg[facility]m2 [facility] in Arterial blood by Pulse oximetry 2023-06-08 14:08:00 97 /min [facility] Systolic blood pressure 2023-04-22 17:02:00 128 mm[Hg] [facility] Diastolic blood pressure 2023-04-22 17:02:00 84 mm[Hg] [facility] Heart rate 2023-04-22 17:02:00 74 /min [facility] Body temperature 2023-04-22 17:02:00 36 Beatriz [facility] Body height 2023-04-22 17:02:00 142.2 cm [facility] Body weight 2023-04-22 17:02:00 62.143 kg [facility] BMI 2023-04-22 17:02:00 30.71 kg/m2 [facility] Oxygen saturation in Arterial blood by Pulse oximetry 2023-04-22 17:02:00 97 /min [facility] Systolic blood pressure 2023-04-06 16:59:00 127 mm[Hg] [facility] Diastolic blood pressure 2023-04-06 16:59:00 83 mm[Hg] [facility] Heart rate 2023-04-06 16:59:00 103 /min [facility] Body weight 2023-04-06 16:59:00 61.644 kg [facility] BMI 2023-04-06 16:59:00 30.47 kg/m2 [facility] Oxygen saturation in Arterial blood by Pulse oximetry 2023-04-06 16:59:00 97 /min [facility] Systolic blood pressure 2023-03-28 21:43:00 108 mm[Hg] [facility] Diastolic blood pressure 2023-03-28 21:43:00 52 mm[Hg] [facility] Heart rate 2023-03-28 21:43:00 99 /min [facility] Body temperature 2023-03-28 21:43:00 37.44 Beatriz [facility] Respiratory rate 2023-03-28 21:43:00 18 /min [facility] Oxygen saturation in Arterial blood by Pulse oximetry 2023-03-28 21:43:00 93 /min [facility] Body height 2023-03-27 12:35:00 142.2 cm [facility] Body weight 2023-03-27 12:35:00 61.236 kg [facility] BMI 2023-03-27 12:35:00 30.27 kg/m2 [facility] Systolic blood pressure 2023-03-27 12:35:00 134 mm[Hg] [facility] Diastolic blood pressure 2023-03-27 12:35:00 81 mm[Hg] [facility] Respiratory rate 2023-03-27 12:35:00 16 /min [facility] Body height 2023-03-27 12:35:00 142.2 cm [facility] Body weight 2023-03-27 12:35:00 61.236 kg [facility] BMI 2023-03-27 12:35:00 30.27 kg/m2 [facility] Oxygen saturation in Arterial blood by Pulse oximetry 2023-03-27 12:35:00 98 /min [facility] Body temperature 2023-03-27 12:33:00 36.5 Beatriz [facility] Systolic blood pressure 2023-03-03 16:27:00 126 mm[Hg] [facility] Diastolic blood pressure 2023-03-03 16:27:00 81 mm[Hg] [facility] Heart rate 2023-03-03 16:27:00 91 /min [facility] Body height 2023-03-03 16:27:00 142.2 cm [facility] weight 2023-03-03 16:27:00 61.326 kg [facility] BMI 2023-03-03 16:27:00 30.31 kg/m2 [facility] Systolic blood pressure 2023-02-25 16:52:00 128 mm[Hg] [facility] Diastolic blood pressure 2023-02-25 16:52:00 88 mm[Hg] [facility] Heart rate 2023-02-25 16:52:00 96 /min [facility] Respiratory rate 2023-02-25 16:52:00 16 /min [facility] Body weight 2023-02-25 16:52:00 60.737 kg [facility] BMI 2023-02-25 16:52:00 30.02 kg/m2 [facility] Oxygen saturation in Arterial blood by Pulse oximetry 2023-02-25 16:52:00 97 /min [facility] Systolic blood pressure 2023-01-07 13:41:00 118 mm[Hg] [facility] Diastolic blood pressure 2023-01-07 13:41:00 75 mm[Hg] [facility] Heart rate 2023-01-07 13:41:00 92 /min [facility] Body temperature 2023-01-07 13:41:00 36.83 Beatriz [facility] Respiratory rate 2023-01-07 13:41:00 18 /min [facility] Body height 2023-01-07 13:41:00 142.2 cm [facility] Body weight 2023-01-07 13:41:00 62.687 kg [facility] BMI 2023-01-07 13:41:00 30.98 kg/m2 [facility] Oxygen saturation in Arterial blood by Pulse oximetry 2023-01-07 13:41:00 98 /min [facility] Systolic blood pressure 2023-01-07 13:33:00 118 mm[Hg] [facility] Diastolic blood pressure 2023-01-07 13:33:00 75 mm[Hg] [facility] Heart rate 2023-01-07 13:33:00 92 /min [facility] Body temperature 2023-01-07 13:33:00 36.83 Beatriz [facility] Respiratory rate 2023-01-07 13:33:00 18 /min [facility] Body height 2023-01-07 13:33:00 142.2 cm [facility] Body weight 2023-01-07 13:33:00 62.687 kg [facility] BMI 2023-01-07 13:33:00 30.98 kg/m2 [facility] Oxygen saturation in Arterial blood by Pulse oximetry 2023-01-07 13:33:00 98 /min [facility] Systolic blood pressure 2022-12-23 16:03:00 117 mm[Hg] [facility] Diastolic blood pressure 2022-12-23 16:03:00 81 mm[Hg] [facility] Heart rate 2022-12-23 16:03:00 104 /min [facility] Body height 2022-12-23 16:03:00 142.2 cm [facility] Body weight 2022-12-23 16:03:00 62.188 kg [facility] BMI 2022-12-23 16:03:00 30.74 kg/m2 [facility] Oxygen saturation in Arterial blood by Pulse oximetry 2022-12-23 16:03:00 96 /min [facility] Systolic blood pressure 2022-09-23 18:17:00 131 mm[Hg] [facility] Diastolic blood pressure 2022-09-23 18:17:00 78 mm[Hg] [facility] Heart rate 2022-09-23 18:17:00 105 /min [facility] Body height 2022-09-23 18:17:00 142.2 cm [facility] Body weight 2022-09-23 18:17:00 67.858 kg [facility] BMI 2022-09-23 18:17:00 33.54 kg/m2 [facility] Oxygen saturation in Arterial blood by Pulse oximetry 2022-09-23 18:17:00 97 /min [facility] Systolic blood pressure 2022-09-10 15:14:00 131 mm[Hg] [facility] Diastolic blood pressure 2022-09-10 15:14:00 78 mm[Hg] [facility] Heart rate 2022-09-10 15:08:00 99 /min [facility] Respiratory rate 2022-09-10 15:08:00 18 /min [facility] Body height 2022-09-10 15:08:00 142.2 cm [facility] Body weight 2022-09-10 15:08:00 67.949 kg [facility] BMI 2022-09-10 15:08:00 33.58 kg/m2 [facility] Oxygen saturation in Arterial blood by Pulse oximetry 2022-09-10 15:08:00 96 /min [facility] Systolic blood pressure 2022-09-01 15:04:00 156 mm[Hg] [facility] Diastolic blood pressure 2022-09-01 15:04:00 75 mm[Hg] [facility] Heart rate 2022-09-01 15:04:00 100 /min [facility] Body temperature 2022-09-01 15:04:00 36 Beatriz [facility] Body height 2022-09-01 15:04:00 142.2 cm [facility] Body weight 2022-09-01 15:04:00 68.04 kg [facility] BMI 2022-09-01 15:04:00 33.63 kg/m2 [facility] Oxygen saturation in Arterial blood by Pulse oximetry 2022-09-01 15:04:00 98 /min [facility] Systolic blood pressure 2022-08-21 15:33:00 130 mm[Hg] [facility] Diastolic blood pressure 2022-08-21 15:33:00 87 mm[Hg] [facility] Heart rate 2022-08-21 15:33:00 103 /min [facility] Respiratory rate 2022-08-21 15:33:00 19 /min [facility] Body height 2022-08-21 15:33:00 142.2 cm [facility] Body weight 2022-08-21 15:33:00 67.722 kg [facility] BMI 2022-08-21 15:33:00 33.47 kg/m2 [facility] Oxygen saturation in Arterial blood by Pulse oximetry 2022-08-21 15:33:00 99 /min [facility] Systolic blood pressure 2022-08-11 20:28:00 104 mm[Hg] [facility] Diastolic blood pressure 2022-08-11 20:28:00 73 mm[Hg] [facility] Heart rate 2022-08-11 20:28:00 97 /min [facility] Body temperature 2022-08-11 20:28:00 36.39 Beatriz [facility] Respiratory rate 2022-08-11 20:28:00 18 /min [facility] Oxygen saturation in Arterial blood by Pulse oximetry 2022-08-11 20:28:00 94 /min [facility] Body height 2022-08-08 10:09:00 142.2 cm [facility] Body weight 2022-08-08 10:09:00 68.04 kg [facility] BMI 2022-08-08 10:09:00 33.63 kg/m2 [facility] Systolic blood pressure 2022-07-15 14:05:00 130 mm[Hg] [facility] Diastolic blood pressure 2022-07-15 14:05:00 75 mm[Hg] [facility] Heart rate 2022-07-15 14:05:00 102 /min [facility] Body temperature 2022-07-15 14:05:00 36.28 Beatriz [facility] Body height 2022-07-15 14:05:00 142.2 cm [facility] Body weight 2022-07-15 14:05:00 69.128 kg [facility] BMI 2022-07-15 14:05:00 34.17 kg/m2 [facility] Oxygen saturation in Arterial blood by Pulse oximetry 2022-07-15 14:05:00 98 /min [facility] Systolic blood pressure 2022-06-10 16:37:00 135 mm[Hg] [facility] Diastolic blood pressure 2022-06-10 16:37:00 85 mm[Hg] [facility] Heart rate 2022-06-10 16:36:00 105 /min [facility] 2022-06-10 16:36:00 36.61 Beatriz [facility] Respiratory rate 2022-06-10 16:36:00 18 /min [facility] Body height 2022-06-10 16:36:00 142.2 cm [facility] Body weight 2022-06-10 16:36:00 68.448 kg [facility] BMI 2022-06-10 16:36:00 33.83 kg/m2 [facility] Oxygen saturation in Arterial blood by Pulse oximetry 2022-06-10 16:36:00 98 /min [facility] Systolic blood pressure 2022-05-09 16:30:00 121 mm[Hg] [facility] Diastolic blood pressure 2022-05-09 16:30:00 85 mm[Hg] [facility] Heart rate 2022-05-09 16:30:00 93 /min [facility] Respiratory rate 2022-05-09 16:30:00 17 /min [facility] Body height 2022-05-09 16:30:00 142.2 cm [facility] Body weight 2022-05-09 16:30:00 68.72 kg [facility] BMI 2022-05-09 16:30:00 33.97 kg/m2 [facility] Oxygen saturation in Arterial blood by Pulse oximetry 2022-05-09 16:30:00 94 /min [facility] Systolic blood pressure 2022-04-22 16:30:00 143 mm[Hg] [facility] Diastolic blood pressure 2022-04-22 16:30:00 85 mm[Hg] [facility] Heart rate 2022-04-22 16:30:00 96 /min [facility] Body temperature 2022-04-22 16:30:00 36.67 Beatriz [facility] Respiratory rate 2022-04-22 16:30:00 18 /min [facility] Body height 2022-04-22 16:30:00 144.8 cm [facility] Body weight 2022-04-22 16:30:00 68.765 kg [facility] BMI 2022-04-22 16:30:00 32.81 kg/m2 [facility] Oxygen saturation in Arterial blood by Pulse oximetry 2022-04-22 16:30:00 96 /min [facility] Systolic blood pressure 2022-04-11 14:25:00 111 mm[Hg] [facility] Diastolic blood pressure 2022-04-11 14:25:00 71 mm[Hg] [facility] Heart rate 2022-04-11 14:25:00 92 /min [facility] Body temperature 2022-04-11 14:25:00 36.83 Beatriz [facility] Respiratory rate 2022-04-11 14:25:00 18 /min [facility] Body height 2022-04-11 14:25:00 142.2 cm [facility] Body weight 2022-04-11 14:25:00 68.947 kg [facility] BMI 2022-04-11 14:25:00 34.08 kg/m2 [facility] Systolic blood pressure 2022-04-08 19:05:00 129 mm[Hg] [facility] Diastolic blood pressure 2022-04-08 19:05:00 80 mm[Hg] [facility] Heart rate 2022-04-08 19:05:00 88 /min [facility] Body temperature 2022-04-08 19:05:00 36.33 Beatriz [facility] Respiratory rate 2022-04-08 19:05:00 18 /min [facility] Body height 2022-04-08 19:05:00 142.2 cm [facility] Body weight 2022-04-08 19:05:00 67.677 kg [facility] BMI 2022-04-08 19:05:00 33.45 kg[facility]2 [facility] in Arterial blood by Pulse oximetry 2022-04-08 19:05:00 97 /min [facility] Systolic blood pressure 2022-03-28 15:29:00 138 mm[Hg] [facility] Diastolic blood pressure 2022-03-28 15:29:00 81 mm[Hg] [facility] Heart rate 2022-03-28 15:29:00 86 /min Un[facility] Respiratory rate 2022-03-28 15:29:00 17 /min [facility] Body height 2022-03-28 15:29:00 142.2 cm [facility] weight 2022-03-28 15:29:00 69.57 kg Univ [facility] BMI 2022-03-28 15:29:00 34.39 kg/m2 [facility] saturation in Arterial blood by Pulse oximetry 2022-03-28 15:29:00 93 /min [facility] Systolic blood pressure 2022-03-24 18:08:00 142 mm[Hg] [facility] Diastolic blood pressure 2022-03-24 18:08:00 94 mm[Hg] [facility] Heart rate 2022-03-24 18:08:00 84 /min [facility] Body temperature 2022-03-24 18:08:00 37.5 Beatriz [facility] Respiratory rate 2022-03-24 18:08:00 20 /min [facility] Body height 2022-03-24 18:08:00 142.2 cm [facility] weight 2022-03-24 18:08:00 65.772 kg Univ [facility] BMI 2022-03-24 18:08:00 32.51 kg/m2 [facility] saturation in Arterial blood by Pulse oximetry 2022-03-24 18:08:00 100 /min [facility] Systolic blood pressure 2022-02-18 19:16:00 139 mm[Hg] [facility] Diastolic blood pressure 2022-02-18 19:16:00 80 mm[Hg] [facility] Heart rate 2022-02-18 19:16:00 102 /min [facility] Body height 2022-02-18 19:16:00 152.4 cm [facility] Body weight 2022-02-18 19:16:00 69.355 kg [facility] BMI 2022-02-18 19:16:00 29.86 kg/m2 [facility] Oxygen saturation in Arterial blood by Pulse oximetry 2022-02-18 19:16:00 97 /min [facility] Systolic blood pressure 2022-02-03 16:49:00 134 mm[Hg] [facility] Diastolic blood pressure 2022-02-03 16:49:00 88 mm[Hg] [facility] Heart rate 2022-02-03 16:49:00 89 /min [facility] Body temperature 2022-02-03 16:49:00 36.78 Beatriz [facility] Respiratory rate 2022-02-03 16:49:00 17 /min [facility] Body height 2022-02-03 16:49:00 142.2 cm [facility] Body weight 2022-02-03 16:49:00 67.994 kg [facility] BMI 2022-02-03 16:49:00 33.61 kg/m2 [facility] Oxygen saturation in Arterial blood by Pulse oximetry 2022-02-03 16:49:00 98 /min [facility] Systolic blood pressure 2021-12-24 15:21:00 116 mm[Hg] [facility] Diastolic blood pressure 2021-12-24 15:21:00 62 mm[Hg] [facility] Heart rate 2021-12-24 15:21:00 90 /min [facility] Body temperature 2021-12-24 15:21:00 35.89 Beatriz [facility] Respiratory rate 2021-12-24 15:21:00 18 /min [facility] Body height 2021-12-24 15:21:00 142.2 cm [facility] Body weight 2021-12-24 15:21:00 68.357 kg [facility] BMI 2021-12-24 15:21:00 33.79 kg/m2 [facility] Oxygen saturation in Arterial blood by Pulse oximetry 2021-12-24 15:21:00 98 /min [facility] Systolic blood pressure 2021-12-05 14:59:00 104 mm[Hg] [facility] Diastolic blood pressure 2021-12-05 14:59:00 72 mm[Hg] [facility] Heart rate 2021-12-05 14:59:00 94 /min [facility] Oxygen saturation in Arterial blood by Pulse oximetry 2021-12-05 14:59:00 97 /min [facility] Body temperature 2021-12-05 14:52:00 36.61 Beatriz [facility] Body height 2021-12-05 14:52:00 142.2 cm [facility] Body weight 2021-12-05 14:52:00 68.629 kg [facility] BMI 2021-12-05 14:52:00 33.92 kg/m2 [facility] Systolic blood pressure 2024-05-03 15:31:00 122 mm[Hg] [facility] Diastolic blood pressure 2024-05-03 15:31:00 82 mm[Hg] [facility] Heart rate 2024-05-03 15:31:00 84 /min [facility] Body height 2024-05-03 15:31:00 142.2 cm [facility] Body weight 2024-05-03 15:31:00 62.097 kg [facility] BMI 2024-05-03 15:31:00 30.69 kg/m2 [facility] Oxygen saturation in Arterial blood by Pulse oximetry 2024-05-03 15:31:00 99 /min [facility] Respiratory rate 2024-04-12 16:56:00 18 /min [facility] Body temperature 2024-03-11 13:47:00 36.33 Beatriz [facility] Respitory Rate 2020-02-16 03:22:00 [facility] Systolic (mm Hg) 2020-02-16 03:22:00 [facility] Diastolic (mm Hg) 2020-02-16 03:22:00 [facility] Temperature Oral (F) 2020-02-16 03:22:00 98.3 F [facility] Respitory Rate 2020-02-16 03:00:00 [facility] Systolic (mm Hg) 2020-02-16 03:00:00 [facility] Diastolic (mm Hg) 2020-02-16 03:00:00 [facility] Respitory Rate 2020-02-16 02:15:00 [facility] Systolic (mm Hg) 2020-02-16 02:15:00 [facility] Diastolic (mm Hg) 2020-02-16 02:15:00 [facility] Height 2020-02-15 22:04:00 162.56 cm [facility] BMI Calculated 2020-02-15 22:04:00 [facility] Weight 2020-02-15 22:04:00 [facility] Heart Rate 2020-02-15 22:04:00 [facility] Temperature Oral (F) 2020-02-15 22:04:00 98.1 F [facility] Procedures Procedure Date / Time Performed Performing Clinician Source CBC WITH DIFF 2024-05-03 15:15:00 Amean Bowman [facility] BASIC METABOLIC PANEL (NA, K, CL, CO2, GLUCOSE, BUN, CREATININE, CA) 2024-05-03 15:15:00 Amena Marte [facility] MAGNESIUM 2024-05-03 15:15:00 Amena Bowman [facility] PHOSPHORUS 2024-05-03 15:15:00 Amena Bowman [facility] URINALYSIS 2024-05-03 15:15:00 Amena Bowman [facility] PROTEIN CREAT RATIO URINE RANDOM 2024-05-03 15:15:00 Amena Marte [facility] TACROLIMUS, LEVEL 2024-05-03 15:15:00 Amena Solorzano [facility] DIABETES TESTING REPORTS 2024-04-27 15:58:54 Doc tor Unassigned, [place] [facility] POCT HEMOGLOBIN A1C TEST 2024-04-12 17:01:00 Oscar Griffin [facility] POCT HEMOGLOBIN A1C TEST 2024-04-12 17:01:00 Oscar Griffin [facility] CT HEAD WO CONTRAST 2024-02-13 17:00:52 Tiera Bernard [facility] CT HEAD WO CONTRAST 2024-02-13 17:00:52 Tiera Bernard [facility] FLU VACC ([id number]), 6 MO-64 YRS, .5ML, IM, TIV (FLUCELVAX) 2023-12-15 20:30:18 Justina Melendez [facility] MICROALBUMIN URINE 2023-11-26 19:00:00 [facility] ([facility]ATED) 2023-11-24 03:28:00 Sherly Cherry [facility] XR CHEST 1 VW 2023-11-24 03:05:42 Mohit Cherry [facility] POCT GLUCOSE (AUTOMATED) 2023-11-24 02:58:00 Sherly Cherry [facility] ACUTE CARE VENOUS BLOOD GAS 2023-11-24 02:53:00 Mohit Cherry [facility] INFLUENZA A/B RSV COVID NAAT 2023-11-24 02:47:00 Mohit Cherry [facility] TROPONIN I 2023-11-24 01:57:00 Mohit Cherry [facility] COMP. METABOLIC PANEL ([id number]) 2023-11-24 01:57:00 Mohit Cherry [facility] CBC WITH DIFF 2023-11-24 01:57:00 Mohit Cherry [facility] URINALYSIS 2023-11-24 01:57:00 Mohit Cherry [facility] POCT GLUCOSE (AUTOMATED) 2023-11-24 01:06:00 Sherly Cherry [facility] POCT HEMOGLOBIN A1C TEST 2023-11-17 16:53:00 Atul Doan [facility] BI ULTRASOUND BREAST COMPLETE RIGHT 2023-11-11 16:51:00 Adum, Denise Brad [facility] BI DIAGNOSTIC TOMOSYNTHESIS BILATERAL 2023-11-11 15:25:46 Adum, Denise Brad [facility] BI DIAGNOSTIC TOMOSYNTHESIS BILATERAL 2023-11-11 15:25:46 Adum, Denise Brad [facility] HIGH RISK HPV-THIN PREP 2023-10-02 15:37:00 Adum, Liliane michel Salinas [facility] PAP SMEAR-LIQUID BASED-CP 2023-10-02 15:37:00 Adum, Georgie toney Brad [facility] EKG-12 LEAD 2023-09-23 18:00:36 Constance Tellez [facility] POCT GLUCOSE (AUTOMATED) 2023-09-23 17:23:00 Constance Tellez Sonia [facility] MAGNESIUM 2023-09-23 15:52:00 Constance Tellez Sonia [facility] TROPONIN I 2023-09-23 15:52:00 Constance Tellez [facility] COMP. METABOLIC PANEL ([id number]) 2023-09-23 15:52:00 Constance Tellez Sonia [facility] CBC WITH DIFF 2023-09-23 15:52:00 Constance Tellez Sonia [facility] N-TERMINAL PRO-BNP 2023-09-23 15:52:00 Constance Tellez Sonia [facility] XR CHEST 1 VW 2023-09-23 15:21:17 Constance Tellez [facility] URINALYSIS 2023-09-23 15:14:00 Constance Tellez [facility] POCT URINALYSIS 2023-09-23 14:21:00 Carmela Vo [facility] CT ABDOMEN PELVIS WO CONTRAST 2023-06-16 16:21:03 Justina Melendez [facility] FREE T4 2023-06-08 16:11:00 [facility]RO[facility] HORMONE 2023-06-08 16:11:00 Justina Melendez [facility] COMP. METABOLIC PANEL ([id number]) 2023-06-08 16:11:00 Nora guerline [facility] LIPID PANEL ([id number])(TOTAL CHOLESTEROL, TRIGLYCERIDES, HDL) 2023-06-08 16:11:00 [facility]EMOGLOBIN (A1C) 2023-06-08 16:11:00 Nora guerline [facility] FREE T3 2023-06-08 16:11:00 [facility] LIPID PANEL ([id number])(TOTAL CHOLESTEROL, TRIGLYCERIDES, HDL) 2023-06-08 16:11:00 Justina Melendez [facility] CONSENT/REFUSAL FOR DIAGNOSIS AND TREATMENT 2023-06-08 13:50:37 Doctor Unassigned, [place] [facility] URINALYSIS 2023-04-22 17:01:00 Amena Bowman [facility] PROTEIN CREAT RATIO URINE RANDOM 2023-04-22 17:01:00 Amena Marte [facility] TOTAL PROTEIN, URINE RANDOM 2023-04-22 17:01:00 Amena Marte [facility] PROTEIN CREAT RATIO URINE RANDOM 2023-04-22 17:01:00 Amena Marte [facility] PHOSPHORUS 2023-04-22 16:47:00 Amena Bowman [facility] AMYLASE 2023-04-22 16:47:00 Amena Bowman [facility] LIPASE 2023-04-22 16:47:00 Amena Bowman [facility] MAGNESIUM 2023-04-22 16:47:00 Amena Bowman [facility] COMP. METABOLIC PANEL ([id number]) 2023-04-22 16:47:00 Griffin Guevara [facility] TACROLIMUS, LEVEL 2023-04-22 16:47:00 Amena Solorzano [facility] CBC WITH DIFF 2023-04-22 16:47:00 Amena Bowman [facility] GLYCOSYLATED HEMOGLOBIN (A1C) 2023-04-22 16:47:00 Amena Marte [facility] PROTHROMBIN TIME / INR 2023-04-22 16:47:00 Ashok Guevara [facility] ACTIVATED PARTIAL THRMPLAS FABIANA 2023-04-22 16:47:00 Griffin Guevara [facility] N-TERMINAL PRO-BNP 2023-04-22 16:47:00 Griffin Guevara [facility] C-PEPTIDE, SERUM OR PLASMA 2023-04-22 16:47:00 Amena Westbrook [facility] POCT GLUCOSE (AUTOMATED) 2023-03-28 23:32:00 Ra kem Vizcarra [facility] POCT GLUCOSE (AUTOMATED) 2023-03-28 23:32:00 Ra kem Vizcarra [facility] POCT GLUCOSE (AUTOMATED) 2023-03-28 21:46:00 Ra kem Vizcarra [facility] POCT GLUCOSE (AUTOMATED) 2023-03-28 21:46:00 Ra kem Vizcarra [facility] POCT GLUCOSE (AUTOMATED) 2023-03-28 17:52:00 Ra kem Vizcarra [facility] POCT GLUCOSE (AUTOMATED) 2023-03-28 17:52:00 Ra kem Vizcarra [facility] POCT GLUCOSE (AUTOMATED) 2023-03-28 13:58:00 Jose R Benítez [facility] POCT GLUCOSE (AUTOMATED) 2023-03-28 13:58:00 Jose R Benítez [facility] POCT GLUCOSE (AUTOMATED) 2023-03-28 03:34:00 Jose R Benítez [facility] POCT GLUCOSE (AUTOMATED) 2023-03-28 03:34:00 Jose R Benítez [facility] POCT GLUCOSE (AUTOMATED) 2023-03-27 22:46:00 Jose R Benítez [facility] POCT GLUCOSE (AUTOMATED) 2023-03-27 22:46:00 Jose R Benítez [facility] CARDIAC CATHETERIZATION 2023-03-27 22:06:14 Se Nicolas ndil [facility] CARDIAC CATHETERIZATION 2023-03-27 22:06:14 GuevaraSe chi moncadail [facility] CARDIAC CATHETERIZATION 2023-03-27 22:06:14 GuevaraSe chi moncadail [facility] CARDIAC CATHETERIZATION 2023-03-27 22:06:14 Guevara, Se ndil [facility] CARDIAC CATHETERIZATION 2023-03-27 22:06:14 Se Nicolas ndil [facility] CARDIAC CATHETERIZATION 2023-03-27 22:06:14 Nicolas Se ndil [facility] POCT GLUCOSE (AUTOMATED) 2023-03-27 16:32:00 Jose R Benítez [facility] POCT GLUCOSE (AUTOMATED) 2023-03-27 16:32:00 Jose R Benítez [facility] POCT GLUCOSE (AUTOMATED) 2023-03-27 14:26:00 Jose R Benítez [facility] POCT GLUCOSE (AUTOMATED) 2023-03-27 14:26:00 Jose R Benítez [facility] BASIC METABOLIC PANEL (NA, K, CL, CO2, GLUCOSE, BUN, CREATININE, CA) 2023-03-27 14:16:00 Rafi Benítez [facility] CBC WITH DIFF 2023-03-27 14:16[facility]00 [facility] 2023-03-27 14:16:00 Lorena Benítez [facility] ACTIVATED PARTIAL THRMPLAS FABIANA 2023-03-27 14:16:00 Rafi Benítez [facility] BASIC METABOLIC PANEL (NA, K, CL, CO2, GLUCOSE, BUN, CREATININE, CA) 2023-03-27 14:16:00 Rafi Benítez [facility] CBC WITH DIFF 2023-03-27 14:16:00 Rafi Benítez [facility] PROTHROMBIN TIME / INR 2023-03-27 14:16:00 Lorena Benítez [facility] ACTIVATED PARTIAL THRMPLAS FABIANA 2023-03-27 14:16:00 Rafi Benítez [facility] HOSPITAL ADMISSION 2023-03-27 06:01:00 Doctor Un assigned, [place] [facility] POCT HEMOGLOBIN A1C TEST 2023-03-03 16:30:00 Atul Doan [facility] HB ECG ROUTINE & RHYTHM STRIP 2023-02-25 17:14:37 Griffin Guevara [facility] POCT HEMOGLOBIN A1C TEST 2022-12-23 16:06:00 Roopa Jimenez [facility] PATIENT FINANCIAL POLICY 2022-12-23 14:52:45 Doctor Unassigned, [place] [facility] PATIENT QUESTIONNAIRE 2022-12-23 05:01:00 Doctor Unassigned, [place] [facility] DME/SUPPLY JUSTIFICATION 2022-08-21 05:01:00 Doc tor Unassigned, [place] [facility] POCT GLUCOSE (AUTOMATED) 2022-08-11 21:41:00 Sy Sepulveda [facility] POCT GLUCOSE (AUTOMATED) 2022-08-11 17:01:00 Sy Sepulveda [facility] POCT GLUCOSE (AUTOMATED) 2022-08-11 13:18:00 Sy Sepulveda [facility] MAGNESIUM 2022-08-11 10:21:00 Antonette Quarles [facility] BASIC METABOLIC PANEL (NA, K, CL, CO2, GLUCOSE, BUN, CREATININE, CA) 2022-08-11 10:21:00 Antonette Quarles [facility] CBC WITH DIFF 2022-08-11 10:21:00 Willam, Shini [facility] POCT GLUCOSE (AUTOMATED) 2022-08-11 00:58:00 Sy Sepulveda [facility] POCT GLUCOSE (AUTOMATED) 2022-08-10 21:36:00 Sy Sepulveda [facility] POCT GLUCOSE (AUTOMATED) 2022-08-10 17:10:00 Sy Sepulveda [facility] POCT GLUCOSE (AUTOMATED) 2022-08-10 13:18:00 Sy Sepulveda [facility] MAGNESIUM 2022-08-10 10:17:00 Dayday Cm [facility] BASIC METABOLIC PANEL (NA, K, CL, CO2, GLUCOSE, BUN, CREATININE, CA) 2022-08-10 10:17:[address] [facility] CBC WITH DIFF 2022-08-10 10:17:00 Dayday Cm [facility] POCT GLUCOSE (AUTOMATED) 2022-08-10 08:55:00 Sy Sepulveda [facility] POCT GLUCOSE (AUTOMATED) 2022-08-10 04:37:00 Sy Sepulveda [facility] POCT GLUCOSE (AUTOMATED) 2022-08-10 01:31:00 Sy Sepulveda [facility] POCT GLUCOSE (AUTOMATED) 2022-08-10 01:05:00 yS Sepulveda [facility] POCT GLUCOSE (AUTOMATED) 2022-08-09 21:42:00 Sy Sepulveda [facility] US ABDOMEN LIMITED 2022-08-09 20:52:32 Dayday Cm [facility] POCT GLUCOSE (AUTOMATED) 2022-08-09 17:15:00 Sy Sepulveda [facility] POCT GLUCOSE (AUTOMATED) 2022-08-09 15:02:00 Sy Sepulveda [facility] POCT GLUCOSE (AUTOMATED) 2022-08-09 13:09:00 Sy Sepulveda [facility] EXTRA TUBE LAV 2022-08-09 10:01:00 Sapphire Sepulveda [facility] MAGNESIUM 2022-08-09 09:51:00 Antonette Quarles [facility] BASIC METABOLIC PANEL (NA, K, CL, CO2, GLUCOSE, BUN, CREATININE, CA) 2022-08-09 09:51:00 Antonette Quarles [facility] POCT GLUCOSE (AUTOMATED) 2022-08-09 09:00:00 Sy Sepulveda [facility] POCT GLUCOSE (AUTOMATED) 2022-08-09 05:02:00 Sy Sepulveda [facility] POCT GLUCOSE (AUTOMATED) 2022-08-09 02:01:00 Sy Sepulveda [facility] PROTEIN CREAT RATIO URINE RANDOM 2022-08-09 00:26:00 Dayday Cm [facility] POCT GLUCOSE (AUTOMATED) 2022-08-08 22:04:00 Sy Sepulveda [facility] POCT GLUCOSE (AUTOMATED) 2022-08-08 16:28:00 Sherly Cherry [facility] POCT GLUCOSE (AUTOMATED) 2022-08-08 12:36:00 Sherly Cherry [facility] XR CHEST 1 VW 2022-08-08 11:20:00 Floyd Devine [facility] VITAMIN B12, LEVEL 2022-08-08 11:17:00 Floyd Devine [facility] BASIC METABOLIC PANEL (NA, K, CL, CO2, GLUCOSE, BUN, CREATININE, CA) 2022-08-08 11:17:00 Floyd Devine [facility] VITAMIN D, 25-OH 2022-08-08 11:17:00 Floyd Devine [facility] TACROLIMUS, LEVEL 2022-08-08 10:37:00 Mohit Cherry [facility] EXTRA TUBE LT. GREEN 2022-08-08 10:37:00 Sapphire Sepulveda [facility] POCT GLUCOSE (AUTOMATED) 2022-08-08 10:32:00 Sherly Cherry [facility] CT ABDOMEN PELVIS WO CONTRAST 2022-08-08 06:46:13 Mohit Cherry [facility] POCT GLUCOSE (AUTOMATED) 2022-08-08 06:26:00 Sherly Cherry [facility] POCT GLUCOSE (AUTOMATED) 2022-08-08 05:11:00 Sherly Cherry [facility] POCT GLUCOSE (AUTOMATED) 2022-08-08 04:21:00 Sherly Cherry [facility] URINALYSIS 2022-08-08 03:51:00 Mohit Cherry [facility] ACUTE CARE VENOUS BLOOD GAS 2022-08-08 03:49:00 Mohit Cherry [facility] AMYLASE 2022-08-08 03:48:00 Floyd Devine [facility] LIPASE 2022-08-08 03:48:00 Mohit Cherry [facility] THYROID STIMULATING HORMONE 2022-08-08 03:48:00 Floyd Devine [facility] COMP. METABOLIC PANEL ([id number]) 2022-08-08 03:48:00 Mohit Cherry [facility] LIPID PANEL ([id number])(TOTAL CHOLESTEROL, TRIGLYCERIDES, HDL) 2022-08-08 03:48:00 Floyd Devine [facility] CBC WITH DIFF 2022-08-08 03:48:00 Mohit Cherry [facility] GLYCOSYLATED HEMOGLOBIN (A1C) 2022-08-08 03:48:00 Floyd Devine [facility] N-TERMINAL PRO-BNP 2022-08-08 03:48:00 [facility]) 2022-08-08 02:36:00 Doc tor Unassigned, [place] [facility] CONSENT/REFUSAL FOR DIAGNOSIS AND TREATMENT 2022-08-08 02:16:24 Doctor Unassigned, [place] [facility] HOSPITAL ADMISSION 2022-08-07 05:01:00 Doctor Un assigned, [place] [facility] DEXA AXIAL (HIP AND SPINE) 2022-07-31 15:46:35 Vignesh Doan [facility] DME/SUPPLY JUSTIFICATION 2022-06-16 05:01:00 Doc tor Unassigned, [place] [facility] DME/SUPPLY JUSTIFICATION 2022-05-09 06:01:00 Doc tor Unassigned, [place] [facility] CT THORAX WO CONTRAST 2022-05-08 15:47:58 Ita Cai [facility] DME/SUPPLY JUSTIFICATION 2022-05-02 06:01:00 Doc tor Unassigned, [place] [facility] US HEAD NECK 2022-04-23 17:50:21 [facility] 2022-04-22 06:01:00 Doct or Unassigned, [place] [facility] PULMONARY FUNCTION TEST (RESULTS) 2022-04-16 17:44:43 Ita Cai [facility] CONSENT/REFUSAL FOR DIAGNOSIS AND TREATMENT 2022-04-08 18:45:04 Doctor Unassigned, [place] [facility] XR CHEST 2 VW 2022-03-28 17:00:58 Ita Cai [facility] CONSENT/REFUSAL FOR DIAGNOSIS AND TREATMENT 2022-03-24 17:53:17 Doctor Unassigned, [place] [facility] FLU VACC ([id number]), 6 MO-64 YRS, .5ML, IM, QUAD (FLUCELVAX) 2022-02-03 17:17:57 Michelle Mcdermott [facility] URINALYSIS 2022-01-03 15:42:00 Amena Bowman [facility] CREATININE, URINE RANDOM 2022-01-03 15:42:00 Amena Oneill [facility] TOTAL PROTEIN, URINE RANDOM 2022-01-03 15:42:00 Amena Marte [facility] AMYLASE 2022-01-03 15:40:00 Amena Bowman [facility] LIPASE 2022-01-03 15:40:00 Amena Bowman [facility] CBC WITH DIFF 2022-01-03 15:40:00 Amena Bowman [facility] N-TERMINAL PRO-BNP 2022-01-03 15:40:00 Griffin Guevara [facility] COLONOSCOPY (ENDO) 2019-01-03 12:54:17 Rafi Gaona [facility] CONSENT/REFUSAL FOR DIAGNOSIS AND TREATMENT 2014-10-05 13:45:40 Doctor Unassigned, [place] [facility] OPERATIVE NOTES 2014-09-28 05:01:00 Doctor Unass igned, [place] [facility] DAY SURGERY - [place] 2014-09-28 05:01:00 Doct or Unassigned, [place] [place] [facility] ELBOW LESS THAN 3 VIEWS 2012-08-09 14:14:00 Allison Howe [facility] BI SCREENING MAMMOGRAM BILATERAL 2012-01-12 20:28:00 Parker Burks [facility] CA-125 2012-01-12 19:10:00 Parker Burks [facility] FOLLICLE STIMULATING HORMONE 2012-01-12 19:10:00 Parker Burks [facility] LUTEINIZING HORMONE SERUM 2012-01-12 19:10:00 Laith Burks [facility] ESTRADIOL, LEVEL 2012-01-12 19:10:00 Parker Burks [facility] TESTOSTERONE LC-MS/MS, F&T 2012-01-12 19:10:00 Parker Burks [facility] SUPERINTENDENT ELECTRIC POWER ORDER/REPORT PROCEDURE 2012-01-12 19:00:00 Parker Burks [facility] PATIENT QUESTIONNAIRE 2012-01-12 05:01:00 Doctor Unassigned, [place] [facility] OB / SUPERINTENDENT ELECTRIC POWER CLINIC NOTE 2012-01-12 05:01:00 Doctor Unassigned, [place] [facility] DERMATOPATHOLOGY TISSUE EXAM 2012-01-12 00:00:00 Sandi Nicole [facility] US ABDOMEN LIMITED 2011-07-08 15:02:00 Donald Oakes [facility] HCV ANTIBODY 2008-11-30 14:31:00 [facility] - HIV TYPE 1 AND 2 ANTIBODY TESTING 2008-05-30 22:34:00 Roro Tobias [facility] Encounters Start Date/Time End Date/Time Encounter Type Admission Type Attending [facility] Facility Care Department Encounter ID Source 2021-12-03 10:01:52 Emergency X [facility] [id number] [facility] 2021-06-21 18:32:26 Outpatient [facility] [id number] - [id number] [facility]-04[facility] 10:58[facility]47 [facility] [id number] [facility] [place] [facility] 2021-04-25 10:58:16 Outpatient 3 [id number] ENC[facility] REF [id number] [facility] [place] 2021-01-27 23:18:53 Outpatient R RAFAEL MORALES GABRIEL [facility] GIJanice [id number] [facility] 2021-01-26 06:29:57 Outpatient U TAYLA LATHAM JRRDO [facility] SCT [id number] [facility] 2021-01-26 01:12:40 Inpatient AN LATHAM JR [facility] [id number] [facility] 2024-07-05 10:30:00 2024-07-05 10:30:00 Outpatient R JUSTINA MELENDEZ OGECHUKWU [facility] [id number] [facility] 2024-06-28 00:00:00 2024-06-28 13:42:19 Telephone Angelica Veras La Neria [facility] MEDICAL OFFICE BUILDING 1.2.840.114 350.1.13.10 4.2.7.2.686 [id number] [facility] 2024-06-27 00:00:00 2024-06-27 12:56:38 Refill Jess Doan [facility] MEDICAL OFFICE BUILDING 1.2.840.114 350.1.13.10 4.2.7.2.686 [id number] [facility] 2024-06-08 10:30:00 2024-06-08 10:30:00 Outpatient R NORA REEDSherlyRaegan [place] [facility] [id number] [facility] 2024-06-02 00:00:00 2024-06-02 12:13:32 Telephone Reed Melendezcem [facility] 1.2.840.114 350.1.13.10 4.2.7.2.686 [id number] [facility] 2024-05-26 10:00:00 2024-05-26 10:00:00 Outpatient R GRIFFIN GUEVARA [facility] [id number] [facility] 2011-07-08 00:00:00 2024-05-14 05:30:46 Orders Only Donald Oakes [facility]id [facility] 1.2.840.114 350.1.13.10 4.2.7.2.686 [id number] [facility] 2012-01-12 00:00:00 2024-05-14 05:07:00 Orders Only Parker Burks [facility] 1.2.840.114 350.1.13.10 4.2.7.2.686 [id number] [facility] 2012-08-09 00:00:00 2024-05-14 04:46:08 Orders Only Kunal Howe [facility] [place] 1.2.840.114 350.1.13.10 4.2.7.2.686 [id number] [facility] 2014-09-28 00:00:00 2024-05-14 04:27:35 Orders Only Doctor Unassigned, [place] Doctor [place]assigned, [place] [facility] 1.2.840.114 350.1.13.10 4.2.7.2.686 [id number] [facility] 2016-10-29 00:00:00 2024-05-14 03:41:56 Orders Only Doctor Unassigned, [place] Doctor Unassigned, [place] [facility] [place] [place] [facility] 1.2.114 350.1.13.10 4.2.7.2.686 [id number] [facility] 2018-12-13 00:00:00 2024-05-14 03:07:49 Orders Only Aldo Bond [facility]) 1..114 350.1.13.10 4.2.7.2.686 [id number] [facility] 2020-12-04 00:00:00 2024-05-14 02:53:36 Orders Only Dina Hernandez Gillian D [facility] 1..114 350.1.13.10 4.2.7.2.686 [id number] [facility] 2022-12-23 00:00:00 2024-05-14 02:38:04 Orders Only Dina Hernandez Gillian D [facility] 1.114 350.1.13.10 4.2.7.2.686 [id number] [facility] 2022-12-23 00:00:00 2024-05-14 02:38:04 Orders Only Rafat Garg Donesha N [facility] 1.114 350.1.13.10 4.2.7.2.686 [id number] [facility] 2024-05-09 08:30:00 2024-05-09 16:30:00 Office Visit Ev Jamil [facility] MED[facility] OFFICE BUILDING 1.2.840.114 350.1.13.10 4.2.7.2.686 [id number] [facility] 2024-05-09 08:30:00 2024-05-09 08:30:00 Outpatient R BENEDICTOJoan EV FLORENTINONAVDEEP EV [facility] [id number] [facility] 2024-05-09 00:00:00 2024-05-09 00:00:00 Travel 1.2.840.1 24902.1.1 3.104.2.7 .3.657049 .8 1.2.840.114 350.1.13.10 4.2.7.3.698 084.8 [id number] [facility] 2024-05-05 14:30:00 2024-05-05 14:30:00 Outpatient R GRIFFIN GUEVARA [facility] [id number] [facility] 2024-05-03 09:30:00 2024-05-03 10:33:58 Outpatient R FRANKI JESS [facility] [id number] [facility] 2024-05-03 09:30:00 2024-05-03 10:33:58 Office Visit Franki Jess [facility] MEDICAL OFFICE BUILDING 1.840.114 350.1.13.10 4.2.7.2.686 [id number] [facility] 2024-05-03 09:00:00 2024-05-03 09:24:42 Pmo Business Analyst Visit Unknown, Attending Lab, Ang - Db 1.2.840.1 28324.1.1 3.104.2.7 .3.786677 .8 [id number] [facility] 2024-05-03 00:00:00 2024-05-03 00:00:00 Travel 1.2.840.1 15185.1.1 3.104.2.7 .3.329119 .8 1.2.840.114 350.1.13.10 4.2.7.3.698 084.8 [id number] [facility] 2024-04-28 10:30:00 2024-04-28 10:30:00 Outpatient R GRIFFIN GUEVARA [facility] [id number] [facility] 2024-04-27 10:00:00 2024-04-27 10:00:00 Outpatient R [facility] [id number] [facility] 2024-04-25 00:00:00 2024-04-25 13:12:23 Telephone Justina Melendez 1.2.840.1 02683.1.1 3.104.2.7 .3.180028 .8 [id number] [facility] 2024-04-21 10:00:00 2024-04-21 10:00:00 Outpatient R [facility] [id number] [facility] 2024-03-10 00:00:00 2024-04-16 18:22:12 Patient Secure Msg Doctor Unassigned, [place] 1.2.840.1 29025.1.1 3.104.2.7 .3.177386 .8 [id number] [facility] 2024-04-14 00:00:00 2024-04-14 12:44:38 Telephone Jess Doan 1.2.840.1 59451.1.1 3.104.2.7 .3.654183 .8 [id number] [facility] 2024-04-12 10:30:00 2024-04-12 11:52:50 Outpatient R JESS DOAN [facility] [id number] [facility] 2024-04-12 10:30:00 2024-04-12 11:52:50 Office Visit Jess Doan 1.2.840.1 24572.1.1 3.104.2.7 .3.012634 .8 [id number] [facility] 2024-04-12 00:00:00 2024-04-12 00:00:00 Travel 1.2.840.1 08410.1.1 3.104.2.7 .3.331107 .8 1.2.840.114 350.1.13.10 4.2.7.3.698 084.8 [id number] [facility] 2024-04-08 00:00:00 2024-04-08 13:17:28 Telephone Jess Doan 1.2.840.1 38051.1.1 3.104.2.7 .3.581755 .8 [id number] [facility] 2024-04-07 00:00:00 2024-04-07 00:00:00 Refill Mika Toro 1.2.840.1 73824.1.1 3.104.2.7 .3.469956 .8 [id number] [facility] 2024-04-06 00:00:00 2024-04-06 13:28:45 Telephone Vinnie Melendezraegan 1.2.840.1 79132.1.1 3.104.2.7 .3.460288 .8 [id number] [facility] 2024-04-01 00:00:00 2024-04-03 15:50:14 Telephone Justina Melendez 1.2.840.1 41617.1.1 3.104.2.7 .3.810174 .8 [id number] [facility] 2024-03-24 00:00:00 2024-03-31 16:11:57 Telephone Justina Melendez 1.2.840.1 13184.1.1 3.104.2.7 .3.796346 .8 [id number] [facility] 2024-03-21 00:00:00 2024-03-21 10:38:09 Letter (Out) 1.2.840.1 02570.1.1 3.104.2.7 .3.980471 .8 [id number] [facility] 2024-03-11 00:00:00 2024-03-11 10:40:07 Case Management Sharonda Howe 1.2.840.1 74301.1.1 3.104.2.7 .3.263018 .8 [id number] [facility] 2024-03-11 08:30:00 2024-03-11 09:10:54 Outpatient R JESS DOAN [facility] [id number] [facility] 2024-03-11 08:30:00 2024-03-11 09:10:54 Nurse Visit Jess Doan 1, Adc Pob Amb Infusion Room 1.2.840.1 30746.1.1 3.104.2.7 .3.467555 .8 [id number] [facility] 2024-03-09 11:00:00 2024-03-09 11:33:25 Office Visit Justina Melendez 1.2.840.1 64714.1.1 3.104.2.7 .3.034446 .8 [id number] [facility] 2024-03-09 10:30:00 2024-03-09 11:33:17 Outpatient R JUSTINA MELENDEZ OGECHUKWU [facility] [id number] [facility] 2024-03-09 10:30:00 2024-03-09 11:33:17 Office Visit Justina Melendez 1.2.840.1 53268.1.1 3.104.2.7 .3.417222 .8 [id number] [facility] 2024-03-08 10:40:00 2024-03-08 11:40:33 Outpatient R JEFF BERNARD HOWARD [facility] [id number] [facility] 2024-03-08 10:40:00 2024-03-08 11:40:33 Office Visit Jeff Bernard 1.2.840.1 14343.1.1 3.104.2.7 .3.859777 .8 [id number] [facility] 2024-03-08 00:00:00 2024-03-08 00:00:00 Travel 1.2.840.1 57195.1.1 3.104.2.7 .3.681848 .8 1.2.840.114 350.1.13.10 4.2.7.3.698 084.8 [id number] [facility] 2024-03-04 00:00:00 2024-03-04 13:32:28 Telephone Angelika Bryan 1.2.840.1 34203.1.1 3.104.2.7 .3.585459 .8 [id number] [facility] 2024-02-26 00:00:00 2024-03-02 13:04:07 Refill Justina Melendez 1.2.840.1 67869.1.1 3.104.2.7 .3.826719 .8 [id number] [facility] 2024-02-23 00:00:00 2024-02-23 12:43:06 Telephone Rafi Gaona 1.2.840.1 27360.1.1 3.104.2.7 .3.479756 .8 [id number] [facility] 2024-02-13 00:00:00 2024-02-22 09:13:05 Telephone Jeff Bernard 1.2.840.1 64903.1.1 3.104.2.7 .3.314567 .8 [id number] [facility] 2024-02-13 10:55:36 2024-02-13 23:59:00 Outpatient JEFF WILSON HOWARD [facility] [id number] [facility] 2024-02-13 10:55:36 2024-02-13 23:59:00 Hospital Encounter Jeff Bernard 1.2.840.1 19313.1.1 3.104.2.7 .3.005504 .8 [id number] [facility] 2024-02-09 00:00:00 2024-02-10 14:35:48 Telephone Doan [facility] BU[facility] 1.840.114 350.1.13.10 4.2.7.2.686 [id number] [facility] 2024-02-10 00:00:00 2024-02-10 10:39:44 Refill Franki [facility] MEDICAL OFFICE BUILDING 1.84.114 350.1.13.10 4.2.7.2.686 [id number] 220 [id number] [facility] 2024-02-09 00:00:00 2024-02-09 15:40:54 Letter (Out) Rafi Gaona [facility] 1..114 350.1.13.10 4.2.7.2.686 [id number] [facility] 2024-02-08 00:00:00 2024-02-08 10:38:21 Telephone Angelika Bryan Khushbu A [facility] 1..114 350.1.13.10 4.2.7.2.686 [id number] 220 [id number] [facility] 2024-02-08 00:00:00 2024-02-08 08:23:52 Telephone Amena Veliz do [facility] 1..114 350.1.13.10 4.2.7.2.686 [id number] [facility] 2024-02-05 15:00:00 2024-02-05 15:52:34 Outpatient R JEFF BERNARD HOWARD [facility] [id number] [facility] 2024-02-05 15:00:00 2024-02-05 15:52:34 Office Visit Jeff Bernard Gurdeep [facility] MED[facility] OFF[facility] BUILDING 1.840.114 350.1.13.10 4.2.7.2.686 [id number] [facility] 2024-02-03 09:00:00 2024-02-03 09:15:00 Pmo Business Analyst Visit 2, Adc Lab Omar Weiss 2, [facility] 1.840.114 350.1.13.10 4.2.7.2.686 [id number] [facility] 2024-02-03 09:00:00 2024-02-03 09:14:52 Outpatient R OMAR WEISS AJAY [facility] [id number] [facility] 2024-02-02 09:00:00 2024-02-02 09:00:00 Outpatient R [facility] [id number] [facility] 2024-01-28 00:00:00 2024-02-01 10:08:17 Telephone [facility] Veliz [facility] 1.840.114 350.1.13.10 4.2.7.2.686 [id number] [facility] 2024-01-28 08:45:00 2024-01-28 09:47:05 Outpatient R OMAR WEISS AJAY [facility] [id number] [facility] 2024-01-28 08:45:00 2024-01-28 09:47:05 Office Visit Omar Weiss [facility] 1.840.114 350.1.13.10 4.2.7.2.686 [id number] [facility] 2024-01-26 09:20:00 2024-01-26 09:20:00 Outpatient R JEFF BERNARD HOWARD [facility] [id number] [facility] 2024-01-25 00:00:00 2024-01-25 13:30:10 Telephone Amena Veliz do [facility] 1.114 350.1.13.10 4.2.7.2.686 [id number] [facility] 2024-01-25 00:00:00 2024-01-25 10:15:07 Telephone Jeff Bernard [facility] MED[facility] OFF[facility] BUILDING 1.840.114 350.1.13.10 4.2.7.2.686 [id number] [facility] 2024-01-21 00:00:00 2024-01-21 14:08:23 Telephone Angelika Bryan Khushbu A [facility] 1.114 350.1.13.10 4.2.7.2.686 [id number] [facility] 2024-01-21 09:15:00 2024-01-21 09:15:00 Outpatient R [facility] [id number] [facility] 2024-01-13 13:30:00 2024-01-13 14:20:07 Outpatient R JUSTINA MELENDEZ OGECHUKWU [facility] [id number] [facility] 2024-01-13 13:30:00 2024-01-13 14:20:07 Office Visit Justina Melendez [facility] 1.840.114 350.1.13.10 4.2.7.2.686 [id number] [facility] 2024-01-06 12:00:00 2024-01-06 12:00:00 Outpatient R NORA JUSTINA MELENDEZ JUSTINA [facility] [id number] [facility] 2024-01-06 00:00:00 2024-01-06 11:50:45 Telephone Angelika Bryan Khushbu A [facility] 1.840.114 350.1.13.10 4.2.7.2.686 [id number] [facility] 2023-12-24 08:45:00 2023-12-24 08:45:00 Outpatient R GRUPO CROUCH [facility] [id number] [facility] 2023-12-22 00:00:00 2023-12-22 16:52:16 Telephone Grupo Crouch [facility] 1.840.114 350.1.13.10 4.2.7.2.686 [id number] [facility] 2023-12-15 00:00:00 2023-12-22 16:33:36 Telephone Franki [facility] MEDICAL OFFICE BUILDING 1.840.114 350.1.13.10 4.2.7.2.686 [id number] 220 [id number] [facility] 2023-12-17 00:00:00 2023-12-21 09:49:41 Telephone Franki [facility] MEDICAL OFFICE BUILDING 1.2.840.114 350.1.13.10 4.2.7.2.686 [id number] [facility] 2023-12-18 00:00:00 2023-12-18 13:37:11 Telephone Rafi Gaona [facility] 1..114 350.1.13.10 4.2.7.2.686 [id number] [facility] 2023-12-17 00:00:00 2023-12-17 16:02:51 Telephone Amena Veliz do [facility] 1..114 350.1.13.10 4.2.7.2.686 [id number] [facility] 2023-12-16 00:00:00 2023-12-16 15:35:43 Refill Jess Doan [facility] 1.84.114 350.1.13.10 4.2.7.2.686 [id number] [facility] 2023-12-16 00:00:00 2023-12-16 15:08:57 Telephone Angelika Bryan Khushbu A [facility] 1..114 350.1.13.10 4.2.7.2.686 [id number] 220 [id number] [facility] 2023-12-15 14:30:00 2023-12-15 15:53:35 Outpatient R JUSTINA MELENDEZ OGECHUKWU [facility] [id number] [facility] 2023-12-15 14:30:00 2023-12-15 15:53:35 Office Visit Justina Melendez [facility] 1.84.114 350.1.13.10 4.2.7.2.686 [id number] [id number] [facility] 2023-12-15 09:15:00 2023-12-15 09:30:00 Pmo Business Analyst Visit Lab, Floyd Delgado, Ang - Db [facility] 1.2.840.114 350.1.13.10 4.2.7.2.686 [id number] [facility] 2023-12-11 00:00:00 2023-12-11 15:16:45 Telephone Franki [facility] 1.2.840.114 350.1.13.10 4.2.7.2.686 [id number] [facility] 2023-12-10 00:00:00 2023-12-10 16:47:00 Telephone Justina Melendez [facility] BUILDING 1.2.840.114 350.1.13.10 4.2.7.2.686 [id number] [id number] [facility] 2023-12-10 00:00:00 2023-12-10 11:21:30 [facility] 1.2.840.114 350.1.13.10 4.2.7.2.686 [id number] 220 [id number] [facility] 2023-12-10 00:00:00 2023-12-10 11:02:55 Telephone Justina Melendez [facility] BUILDING 1.2.840.114 350.1.13.10 4.2.7.2.686 [id number] 044 [id number] [facility] 2023-12-09 00:00:00 2023-12-10 08:37:43 [facility] 1.2.840.114 350.1.13.10 4.2.7.2.686 [id number] [facility] 2023-12-08 00:00:00 2023-12-09 10:20:55 RefJustina Bob [facility] BUILD[facility] 1..840.114 350.1.13.10 4.2.7.2.686 [id number] [facility] 2023-12-08 08:30:00 2023-12-08 08:30:00 Outpatient R NORA, REEDARJUN COLLINSVICKCEM [facility] [id number] [facility] 2023-12-04 00:00:00 2023-12-04 12:14:21 Telephone Transplant, Kidney Medicine Transplant, Kidney Medicine [facility] 1..114 350.1.13.10 4.2.7.2.686 [id number] [facility] 2023-11-19 00:00:00 2023-12-01 09:58:23 RefJustina Bob [facility] BUILDING 1.840.114 350.1.13.10 4.2.7.2.686 [id number] [id number] [facility] 2023-11-26 15:30:00 2023-11-26 16:13:28 Outpatient R BRIGITTE MONZON CHRISTINE [facility] [id number] [facility] 2023-11-26 15:30:00 2023-11-26 15:45:00 Pmo Business Analyst Visit Lab, Ang - Db Brigitte Monzon Lab, Ang - Db [facility] OFF[facility]ILD[facility] 1.84.114 350.1.13.10 4.2.7.2.686 [id number] [facility] 2023-11-23 00:00:00 2023-11-24 16:21:24 Telephone Lucina Cisneros Kayla M [facility] 1.2.840.114 350.1.13.10 4.2.7.2.686 [id number] [facility] 2023-11-24 00:00:00 2023-11-24 15:57:59 Telephone Franki [facility] MED[facility] OFF[facility] 1.2840.114 350.1.13.10 4.2.7.2.686 [id number] [facility] 2023-11-24 00:00:00 2023-11-24 11:30:17 Telephone Franki [facility] OFF[facility] 1.840.114 350.1.13.10 4.2.7.2.686 [id number] [facility] 2023-11-23 20:14:00 2023-11-23 23:43:00 Emergency X MOHIT CHERRY [facility] [id number] [facility] 2023-11-23 20:14:00 2023-11-23 23:43:00 Emergency Mohit Cherry [facility] 1..114 350.1.13.10 4.2.7.2.686 [id number] [facility] 2023-11-19 00:00:00 2023-11-20 07:48:13 Refill Franki [facility] MED[facility] OFF[facility] 1.840.114 350.1.13.10 4.2.7.2.686 [id number] [facility] 2023-11-19 00:00:00 2023-11-19 10:59:55 Refill Justina Melendez [facility] BUILD[facility] 1.2840.114 350.1.13.10 4.2.7.2.686 [id number] [facility] 2023-11-19 00:00:00 2023-11-19 10:18:00 Telephone Griffin Guevara [facility] BUILDING 1.2.840.114 350.1.13.10 4.2.7.2.686 [id number] [id number] [facility] 2023-11-16 00:00:00 2023-11-17 14:21:54 Telephone Marshall Werner [facility] BUILDING 1.2.840.114 350.1.13.10 4.2.7.2.686 [id number] [id number] [facility] 2023-11-17 13:00:00 2023-11-17 13:14:51 Pmo Business Analyst Visit Lab, Ang - Jess Boykin Lab, Ang - Zachary [facility] MED[facility]ILD[facility] 1..840.114 350.1.13.10 4.2.7.2.686 [id number] [facility] 2023-11-17 12:00:00 2023-11-17 12:57:10 Outpatient R JESS DOAN [facility] [id number] [facility] 2023-11-17 12:00:00 2023-11-17 12:57:10 Office Visit Franki [facility] MED[facility] OFF[facility] BUILD[facility] 1..840.114 350.1.13.10 4.2.7.2.686 [id number] 220 [id number] [facility] 2023-11-13 00:00:00 2023-11-16 16:19:43 Telephone Transplant, Kidney Medicine Transplant, Kidney Medicine [facility] 1.840.114 350.1.13.10 4.2.7.2.686 [id number] [facility] 2023-11-11 08:01:53 2023-11-11 23:59:00 Hospital Encounter AdDenise riley [facility] AT [facility] 1.2.840.114 350.1.13.10 4.2.7.2.686 [id number] [facility] 2023-11-11 08:01:38 2023-11-11 23:59:00 Outpatient R DENISE DUKE VIVIAN [facility] [id number] [facility] 2023-11-11 08:01:38 2023-11-11 23:59:00 Hospital Encounter AdDenise riley [facility] AT [facility] 1.2.840.114 350.1.13.10 4.2.7.2.686 [id number] [facility] 2023-11-10 00:00:00 2023-11-10 17:52:47 Telephone Justina Melendez [facility] 1.2.840.114 350.1.13.10 4.2.7.2.686 [id number] 044 [id number] [facility] 2023-11-10 00:00:00 2023-11-10 17:33:31 Telephone Justina Melendez [facility] 1.2.840.114 350.1.13.10 4.2.7.2.686 [id number] 044 [id number] [facility] 2023-11-10 10:00:00 2023-11-10 10:00:00 Outpatient R JESS DOAN [facility] [id number] [facility] 2023-11-05 00:00:00 2023-11-08 07:23:06 Telephone Justina Melendez [facility] 1.2.840.114 350.1.13.10 4.2.7.2.686 [id number] 044 [id number] [facility] 2023-11-03 00:00:00 2023-11-04 16:27:40 Telephone Griffin Guevara [facility] 1.2.840.114 350.1.13.10 4.2.7.2.686 [id number] 059 [id number] [facility] 2023-11-03 11:00:00 2023-11-03 15:14:57 Outpatient R GRIFFIN GUEVARA [facility] [id number] [facility] 2023-11-03 11:00:00 2023-11-03 11:30:00 Office Visit Griffin Guevara [facility] 1.2.840.114 350.1.13.10 4.2.7.2.686 [id number] 059 [id number] [facility] 2023-09-10 00:00:00 2023-10-17 18:22:47 Patient Secure Msg Doctor Unassigned, [place] [facility] 1.2.840.114 350.1.13.10 4.2.7.2.686 [id number] [facility] 2023-10-09 00:00:00 2023-10-09 13:06:26 Refill Justina Melendez [facility] 1.2.840.114 350.1.13.10 4.2.7.2.686 [id number] [id number] [facility] 2023-10-02 10:30:00 2023-10-02 10:43:39 Office Visit Denise Duke [facility] 1.2.840.114 350.1.13.10 4.2.7.2.686 [id number] [facility] 2023-10-02 10:00:00 2023-10-02 10:00:00 Pmo Business Analyst Visit 2, Adc Lab Amena Veliz do [facility] 1..114 350.1.13.10 4.2.7.2.686 [id number] [facility] 2023-10-02 10:00:00 2023-10-02 09:58:46 Outpatient R AMENA VELIZ DO [facility] [id number] [facility] 2023-09-28 00:00:00 2023-09-28 15:17:34 Telephone Amena Veliz do [facility] 1.114 350.1.13.10 4.2.7.2.686 [id number] [facility] 2023-09-23 09:53:00 2023-09-23 13:31:00 Emergency Constance Tellez [facility] 1.114 350.1.13.10 4.2.7.2.686 [id number] [id number] [facility] 2023-09-23 09:00:00 2023-09-23 09:34:54 Outpatient R RAGHAVRADHACARMELA [facility] [id number] [facility] 2023-09-23 09:00:00 2023-09-23 09:34:54 Outpatient R RAGHAVRADHA ANATUNG [facility] ERT [id number] [facility] 2023-09-23 09:00:00 2023-09-23 09:34:54 Urgent Care Carmela Vo [facility] 1.84.114 350.1.13.10 4.2.7.2.686 [id number] [facility] 2023-09-16 00:00:00 2023-09-16 18:30:41 Telephone Griffin Guevara [facility] BU[facility] 1.84.114 350.1.13.10 4.2.7.2.686 [id number] 059 [id number] [facility] 2023-09-08 00:00:00 2023-09-09 15:28:55 Telephone [facility] 1.2.840.114 350.1.13.10 4.2.7.2.686 [id number] 044 [id number] [facility] 2023-09-07 11:50:56 2023-09-07 23:59:00 Hospital Encounter Justina Melendez [facility] 1.2.840.114 350.1.13.10 4.2.7.2.686 [id number] [facility] 2023-09-07 09:30:00 2023-09-07 11:31:22 Outpatient R [facility] [id number] [facility] 2023-09-07 09:30:00 2023-09-07 11:31:22 [facility] 1.2.840.114 350.1.13.10 4.2.7.2.686 [id number] [id number] [facility] 2023-09-01 12:00:00 2023-09-01 12:00:00 Outpatient JESS GREGORY [facility] [id number] [facility] 2023-08-31 00:00:00 2023-09-01 09:04:16 Refill Marshall Werner [facility] BU[facility] 1.2.840.114 350.1.13.10 4.2.7.2.686 [id number] 044 [id number] [facility] 2023-08-25 10:00:00 2023-08-25 10:00:00 Outpatient R JESS DOAN [facility] [id number] [facility] 2023-08-19 00:00:00 2023-08-19 15:40:28 Jess Rosa [facility] 1.2.840.114 350.1.13.10 4.2.7.2.686 [id number] [facility] 2023-08-06 00:00:00 2023-08-06 16:08:29 Nurse Triage Marta Pedraza [facility] 1.2.840.114 350.1.13.10 4.2.7.2.686 [id number] 019 [id number] [facility] 2023-08-05 00:00:00 2023-08-05 08:54:33 Patient Outreach Bobbi Vora [facility] BUILD[facility] 1.2.840.114 350.1.13.10 4.2.7.2.686 [id number] 044 [id number] [facility] 2023-08-03 00:00:00 2023-08-04 16:41:31 Telephone Nora, Justina [facility] BU[facility] 1.2.840.114 350.1.13.10 4.2.7.2.686 [id number] 044 [id number] [facility] 2023-08-04 00:00:00 2023-08-04 10:46:04 Telephone Nora, Justina [facility] BU[facility] 1.2.840.114 350.1.13.10 4.2.7.2.686 [id number] 044 [id number] [facility] 2023-08-03 11:30:00 2023-08-03 12:13:55 Outpatient R GRIFFIN GUEVARA [facility] [id number] [facility] 2023-08-03 11:30:00 2023-08-03 12:13:55 Office Visit Griffin Guevara [facility] BUILD[facility] 1..840.114 350.1.13.10 4.2.7.2.686 [id number] 059 [id number] [facility] 2023-08-03 00:00:00 2023-08-03 11:20:13 Telephone Justina Melendez [facility] 1..840.114 350.1.13.10 4.2.7.2.686 [id number] 044 [id number] [facility] 2023-07-22 14:00:00 2023-07-22 14:00:00 Outpatient R [facility] [id number] [facility] 2023-07-02 00:00:00 2023-07-02 00:00:00 Refill Justina Melendez [facility] 1..840.114 350.1.13.10 4.2.7.2.686 [id number] [facility] 2023-06-30 08:30:00 2023-06-30 08:30:00 Outpatient R DENISE DUKE [facility] [id number] [facility] 2023-06-25 11:00:00 2023-06-25 11:15:00 Pmo Business Analyst Visit Vtc-Lab Amena Veliz do [facility]TY [facility] .840.114 350.1.13.10 4.2.7.2.686 [id number] [facility] 2023-06-25 11:00:00 2023-06-25 11:00:00 Outpatient R AMENA VELIZ DO [facility] [id number] [facility] 2023-06-25 10:00:00 2023-06-25 10:47:29 Office Visit [facility]i [facility] 1.2840.114 350.1.13.10 4.2.7.2.686 [id number] [facility] 2023-06-25 00:00:00 2023-06-25 00:00:00 Patient Secure Msg Doctor Unassigned, [place] [facility] 1.114 350.1.13.10 4.2.7.2.686 [id number] 059 [id number] [facility] 2023-06-16 10:58:20 2023-06-16 23:59:00 Out[facility] [id number] [facility] 2023-06-16 10:58:20 2023-06-16 23:59:00 Hospital Encounter Justina Melendez [facility] 1.114 350.1.13.10 4.2.7.2.686 [id number] [facility] 2023-06-16 11:30:00 2023-06-16 11:45:00 Pmo Business Analyst Visit Pob, Adc Lab Main Justina Melendez do, Ann K N [facility] BUILDING 1.114 350.1.13.10 4.2.7.2.686 [id number] [facility] 2023-06-16 00:00:00 2023-06-16 00:00:00 Refill Jess Doan [facility] MULTISPEC [facility] . 350.1.13.10 4.2.7.2.686 [id number] [facility] 2023-06-16 00:00:00 2023-06-16 00:00:00 Patient Outreach Bobbi Vora [facility] BUILD[facility] 1.2.840.114 350.1.13.10 4.2.7.2.686 [id number] 044 [id number] [facility] 2023-06-10 00:00:00 2023-06-10 00:00:00 Telephone Grupo Crouch [facility] 1.2840.114 350.1.13.10 4.2.7.2.686 [id number] [facility] 2023-06-10 00:00:00 2023-06-10 00:00:00 Telephone Griffin Guevara [facility] BUILDING 1.2840.114 350.1.13.10 4.2.7.2.686 [id number] 059 [id number] [facility] 2023-06-09 00:00:00 2023-06-09 00:00:00 Patient Outreach Kelsey Adams [facility] BU[facility] 1.284.114 350.1.13.10 4.2.7.2.686 [id number] 044 [id number] [facility] 2023-06-08 10:45:00 2023-06-08 11:00:00 Pmo Business Analyst Visit 2, Adc Lab Justina Melendez [facility] BUILDING 1.2840.114 350.1.13.10 4.2.7.2.686 [id number] [facility] 2023-06-08 09:30:00 2023-06-08 10:37:04 Outpatient R JUSTINA MELENDEZ OGECHUKWU [facility] [id number] [facility] 2023-06-08 09:30:00 2023-06-08 10:37:04 Office Visit Justina Melendez [facility] BUILD[facility] 1.2840.114 350.1.13.10 4.2.7.2.686 [id number] [id number] [facility] 2023-06-08 00:00:00 2023-06-08 00:00:00 Telephone Amena Veliz do [facility] MULTISPEC [facility] .114 350.1.13.10 4.2.7.2.686 [id number] [facility] 2023-06-08 00:00:00 2023-06-08 00:00:00 Orders Only Doctor Unassigned, [place] [facility] 1.114 350.1.13.10 4.2.7.2.686 [id number] [facility] 2023-05-28 10:40:00 2023-05-28 10:40:00 Outpatient GRUPO BELLAMY [facility] [id number] [facility] 2023-05-28 00:00:00 2023-05-28 00:00:00 Telephone [facility] .114 350.1.13.10 4.2.7.2.686 [id number] [facility] 2023-05-27 00:00:00 2023-05-27 00:00:00 Telephone Griffin Guevara [facility] 1.114 350.1.13.10 4.2.7.2.686 [id number] 059 [id number] [facility] 2023-05-07 09:00:00 2023-05-07 09:00:00 Outpatient ITA BLAIR SHIWAN [facility] [id number] [facility] 2023-05-04 00:00:00 2023-05-04 00:00:00 Telephone [employer]ouch [facility] 1.114 350.1.13.10 4.2.7.2.686 [id number] [facility] 2023-04-22 11:20:00 2023-04-22 11:23:27 Outpatient R OBI-NADIRA , MARSHALL OBI-NADIRA , MARSHALL [facility] [id number] [facility] 2023-04-22 11:20:00 2023-04-22 11:23:27 [facility] 1.84.114 350.1.13.10 4.2.7.2.686 [id number] 044 [id number] [facility] 2023-04-22 10:30:00 2023-04-22 11:05:29 Pmo Business Analyst Visit 2, Adc Lab Amena Veliz do [facility] 1.84.114 350.1.13.10 4.2.7.2.686 [id number] [facility] 2023-04-14 11:20:00 2023-04-14 11:20:00 Outpatient R OBI-NADIRAMARSHALL Franco OBI-NADIRA , [facility] [id number] [facility] 2023-04-09 11:00:00 2023-04-09 11:00:00 Outpatient R GRUPO CROUCH [facility] [id number] [facility] 2023-04-08 00:00:00 2023-04-08 00:00:00 [facility]phone [facility] 1.114 350.1.13.10 4.2.7.2.686 [id number] [facility] 2023-04-07 00:00:00 2023-04-07 00:00:00 Telephone Angelika Bryan [facility] MULTISPEC [facility]ALTY [facility] 1.2840.114 350.1.13.10 4.2.7.2.686 [id number] [facility] 2023-04-06 11:30:00 2023-04-06 11:30:02 Outpatient R GRIFFIN GUEVARA [facility] [id number] [facility] 2023-04-06 11:30:00 2023-04-06 11:30:02 Office Visit Griffin Guevara [facility] 1.2.840.114 350.1.13.10 4.2.7.2.686 [id number] 059 [id number] [facility] 2023-03-30 00:00:00 2023-03-30 00:00:00 Telephone Justina Melendez [facility] 1.2.840.114 350.1.13.10 4.2.7.2.686 [id number] [id number] [facility] 2023-03-27 06:23:00 2023-03-28 18:40:00 Outpatient R MEL VIZCARRA [facility] [id number] [facility] 2023-03-27 06:23:00 2023-03-28 18:40:00 Hospital Encounter Rafi Benítez Matthew Laird [facility] ([facility]) 1.2.840.114 350.1.13.10 4.2.7.2.686 [id number] [facility] 2023-03-27 07:30:00 2023-03-27 09:00:00 Surgery Rafi Benítez [facility] ([facility]) 1.2.840.114 350.1.13.10 4.2.7.2.686 [id number] [id number] [facility] 2023-03-27 00:00:00 2023-03-27 00:00:00 Orders Only Doctor Unassigned, [place] [facility] 1.2.840.114 350.1.13.10 4.2.7.2.686 [id number] [facility] 2023-03-26 00:00:00 2023-03-26 00:00:00 Prep For [facility] 1.2.840.114 350.1.13.10 4.2.7.2.686 [id number] [id number] [facility] 2023-03-17 00:00:00 2023-03-17 00:00:00 Telephone Jess Doan [facility] BU[facility] 1.2.840.114 350.1.13.10 4.2.7.2.686 [id number] 220 [id number] [facility] 2023-03-17 00:00:00 2023-03-17 00:00:00 Refill Mehrdad Jimenez [facility] BU[facility] 1.2.840.114 350.1.13.10 4.2.7.2.686 [id number] 220 [id number] [facility] 2023-03-13 00:00:00 2023-03-13 00:00:00 Refill Justina Melendez [facility] 1.2.840.114 350.1.13.10 4.2.7.2.686 [id number] [id number] [facility] 2023-03-09 13:00:00 2023-03-09 13:00:00 Outpatient R AMENA VELIZ DO [facility] [id number] [facility] 2023-03-06 00:00:00 2023-03-06 00:00:00 Patient Secure Msg Doctor Unassigned, [place] [facility] 1.114 350.1.13.10 4.2.7.2.686 [id number] 220 [id number] [facility] 2023-03-05 00:00:00 2023-03-05 00:00:00 Refill Justina Melendez [facility] BUILD[facility] 1.114 350.1.13.10 4.2.7.2.686 [id number] [id number] [facility] 2023-03-04 00:00:00 2023-03-04 00:00:00 [facility]phone [facility] 1.114 350.1.13.10 4.2.7.2.686 [id number] 220 [id number] [facility] 2023-03-03 10:30:00 2023-03-03 11:33:56 Outpatient R ODAN [facility] [id number] [facility] 2023-03-03 10:30:00 2023-03-03 11:33:56 Office Visit Franki [facility] 1.114 350.1.13.10 4.2.7.2.686 [id number] [facility] 2023-03-02 00:00:00 2023-03-02 00:00:00 Telephone Grupo Crouch [facility]PEC [facility] 1.114 350.1.13.10 4.2.7.2.686 [id number] [facility] 2023-03-01 00:00:00 2023-03-01 00:00:00 Refill Pieter Law [facility] 1.114 350.1.13.10 4.2.7.2.686 [id number] [facility] 2023-02-25 11:00:00 2023-02-25 15:03:19 Outpatient R GRIFFIN GUEVARA [facility] [id number] [facility] 2023-02-25 11:00:00 2023-02-25 15:03:19 Office Visit Griffin Guevara [facility] 1.2.840.114 350.1.13.10 4.2.7.2.686 [id number] [facility] 2023-02-25 00:00:00 2023-02-25 00:00:00 Refill [facility] 1.2.840.114 350.1.13.10 4.2.7.2.686 [id number] 044 [id number] [facility] 2023-02-17 00:00:00 2023-02-17 00:00:00 Refill Pieter Law [facility] BUILD[facility] 1.2.840.114 350.1.13.10 4.2.7.2.686 [id number] [facility] 2023-02-16 09:00:00 2023-02-16 09:00:00 Outpatient KRISTIN HUTCHINS [facility] [id number] [facility] 2023-02-14 00:00:00 2023-02-14 00:00:00 Refill Pieter Law [facility] BUILD[facility] 1.2.840.114 350.1.13.10 4.2.7.2.686 [id number] [facility] 2023-01-21 00:00:00 2023-01-21 00:00:00 Telephone Amena Veliz do [facility] 1..114 350.1.13.10 4.2.7.2.686 [id number] [facility] 2023-01-21 00:00:00 2023-01-21 00:00:00 Telephone Mehrdad Jimenez [facility] 1..114 350.1.13.10 4.2.7.2.686 [id number] 220 [id number] [facility] 2023-01-19 00:00:00 2023-01-19 00:00:00 Telephone Angelika Bryan [facility] MULTISPEC [facility]TY [facility] 1.114 350.1.13.10 4.2.7.2.686 [id number] 220 [id number] [facility] 2023-01-14 10:00:00 2023-01-14 10:00:00 Outpatient MICHELLE PUENTE [facility] [id number] [facility] 2023-01-13 00:00:00 2023-01-13 00:00:00 [facility] 1.114 350.1.13.10 4.2.7.2.686 [id number] 220 [id number] [facility] 2023-01-12 00:00:00 2023-01-12 00:00:00 Telephone Angelika Bryan [facility] MULTISPEC [facility]TY [facility] 1.114 350.1.13.10 4.2.7.2.686 [id number] [facility] 2023-01-08 09:00:00 2023-01-08 09:00:00 Outpatient GRIFFIN TERRY [facility] [id number] [facility] 2023-01-07 11:00:00 2023-01-07 11:39:03 Outpatient R JUSTINA MELENDEZ OGECHUKWU [facility] [id number] [facility] 2023-01-07 11:00:00 2023-01-07 11:39:03 Office Visit Justina Melendez [facility] 1.2.840.114 350.1.13.10 4.2.7.2.686 [id number] [id number] [facility] 2023-01-07 09:30:00 2023-01-07 11:38:53 Office Visit Justina Melendez [facility] 1.2840.114 350.1.13.10 4.2.7.2.686 [id number] [id number] [facility] 2023-01-02 00:00:00 2023-01-02 00:00:00 Refill [facility] 1.2840.114 350.1.13.10 4.2.7.2.686 [id number] 220 [id number] [facility] 2023-01-02 00:00:00 2023-01-02 00:00:00 Telephone [employer] [facility] 1..114 350.1.13.10 4.2.7.2.686 [id number] [facility] 2023-01-02 00:00:00 2023-01-02 00:00:00 Telephone [facility] 1.284.114 350.1.13.10 4.2.7.2.686 [id number] [facility] 2023-01-02 00:00:00 2023-01-02 00:00:00 [facility] 1..840.114 350.1.13.10 4.2.7.2.686 [id number] [facility] 2022-12-29 09:00:00 2022-12-29 09:00:00 Outpatient R NORA, JUSTINA MELENDEZ, JUSTINA [facility] [id number] [facility] 2022-12-25 00:00:00 2022-12-25 00:00:00 Telephone [facility] 1.840.114 350.1.13.10 4.2.7.2.686 [id number] 220 [id number] [facility] 2022-12-25 00:00:00 2022-12-25 00:00:00 Patient Secure Msg Doctor Unassigned, [place] [facility] 1..840.114 350.1.13.10 4.2.7.2.686 [id number] [facility] 2022-12-23 10:00:00 2022-12-23 12:18:16 [employer] Visit Lab, Rick Sharma [facility] DESTINY?GINA [facility] BU[facility] 1..840.114 350.1.13.10 4.2.7.2.686 [id number] [facility] 2022-12-23 11:00:00 2022-12-23 12:16:10 Outpatient R [facility] [id number] [facility] 2022-12-23 11:00:00 2022-12-23 12:16:10 Office Visit [facility] DESTINY?[facility] 1..840.114 350.1.13.10 4.2.7.2.686 [id number] 220 [id number] [facility] 2022-12-23 00:00:00 2022-12-23 00:00:00 Orders Only Doctor Unassigned, [place] [facility] 1..114 350.1.13.10 4.2.7.2.686 [id number] [facility] 2022-12-22 00:00:00 2022-12-22 00:00:00 Telephone [employer] [facility] 1.114 350.1.13.10 4.2.7.2.686 [id number] [facility] 2022-12-17 00:00:00 2022-12-17 00:00:00 Telephone Justina Melendez [facility] 1.114 350.1.13.10 4.2.7.2.686 [id number] [facility] 2022-12-04 10:20:00 2022-12-04 10:20:00 Outpatient R GRUPO CROUCH [facility] [id number] [facility] 2022-12-02 11:15:00 2022-12-02 11:15:00 Outpatient R [facility] [id number] [facility] 2022-11-27 00:00:00 2022-11-27 00:00:00 Patient Secure Msg Doctor Unassigned, [place] [facility] 1..114 350.1.13.10 4.2.7.2.686 [id number] [facility] 2022-11-23 00:00:00 2022-11-23 00:00:00 Refill Justina Melendez [facility] 1..114 350.1.13.10 4.2.7.2.686 [id number] [id number] [facility] 2022-11-21 10:30:00 2022-11-21 10:30:00 Outpatient R ITA CAI SHIARBlaine [facility] [id number] [facility] 2022-11-20 09:30:00 2022-11-20 09:30:00 Outpatient R GRIFFIN GUEVARA [facility] [id number] [facility] 2022-11-17 00:00:00 2022-11-17 00:00:00 [facility] 1..840.114 350.1.13.10 4.2.7.2.686 [id number] [facility] 2022-11-11 00:00:00 2022-11-11 00:00:00 Telephone Amena Veliz do [facility] 1.840.114 350.1.13.10 4.2.7.2.686 [id number] [facility] 2022-11-06 00:00:00 2022-11-06 00:00:00 Patient Secure Msg Doctor Unassigned, [place] [facility]?GINA ARASELI [facility] OFF[facility] BUILD[facility] 1..840.114 350.1.13.10 4.2.7.2.686 [id number] [id number] [facility] 2022-10-30 00:00:00 2022-10-30 00:00:00 Telephone Justina Melendez [facility] 1..840.114 350.1.13.10 4.2.7.2.686 [id number] [id number] [facility] 2022-10-29 09:30:00 2022-10-29 09:30:00 Outpatient R JUSTINA MELENDEZ OGECHUKWU [facility] [id number] [facility] 2022-10-26 00:00:00 2022-10-26 00:00:00 Refill Jess Doan [facility] BUILD[facility] 1.2.840.114 350.1.13.10 4.2.7.2.686 [id number] [facility] 2022-10-22 10:00:00 2022-10-22 10:00:00 Outpatient MICHELLE PUENTE [facility] [id number] [facility] 2022-10-21 00:00:00 2022-10-21 00:00:00 Telephone Justina Melendez [facility] BUILD[facility] 1.2.840.114 350.1.13.10 4.2.7.2.686 [id number] [facility] 2022-10-21 00:00:00 2022-10-21 00:00:00 Patient Secure Msg Doctor Unassigned, [place] [facility] BUILD[facility] 1.2.840.114 350.1.13.10 4.2.7.2.686 [id number] [facility] 2022-10-20 00:00:00 2022-10-20 00:00:00 Telephone NoraJustina [facility] BUILDING 1.2.840.114 350.1.13.10 4.2.7.2.686 [id number] [facility] 2022-10-18 00:00:00 2022-10-18 00:00:00 Refill Justina Melendez [facility] BUILDING 1.2.840.114 350.1.13.10 4.2.7.2.686 [id number] [id number] [facility] 2022-10-18 00:00:00 2022-10-18 00:00:00 Refmoise Veliz do, Amena Beauchamp [facility] 1.84.114 350.1.13.10 4.2.7.2.686 [id number] [facility] 2022-10-03 00:00:00 2022-10-03 00:00:00 Patient Secure Msg Doctor Unassigned, [place] [facility] 1.84.114 350.1.13.10 4.2.7.2.686 [id number] [facility] 2022-10-02 00:00:00 2022-10-02 00:00:00 Telephone [facility] DE[facility] MED[facility] OFF[facility] BUILD[facility] 1.840.114 350.1.13.10 4.2.7.2.686 [id number] [facility] 2022-09-26 00:00:00 2022-09-26 00:00:00 Telephone [facility] DE[facility]Y?[facility] MEDICAL OFFICE BUILDING 1.840.114 350.1.13.10 4.2.7.2.686 [id number] [facility] 2022-09-23 15:00:00 2022-09-23 15:15:00 Pmo Business Analyst Visit Lab, Rick - Zachary Jimenez [facility] DESTINY?[facility] MEDICAL OFFICE BUILDING 1.840.114 350.1.13.10 4.2.7.2.686 [id number] [facility] 2022-09-23 13:30:00 2022-09-23 15:00:14 Outpatient R TONY MEHRDAD [facility] [id number] [facility] 2022-09-23 13:30:00 2022-09-23 15:00:14 Office Visit Tony [facility] DESTINY?[facility]A [facility] 1.2.840.114 350.1.13.10 4.2.7.2.686 [id number] [facility] 2022-09-22 00:00:00 2022-09-22 00:00:00 Patient Secure Msg Doctor Unassigned, [place] [facility] 1.2.840.114 350.1.13.10 4.2.7.2.686 [id number] [facility] 2022-09-19 10:30:00 2022-09-19 10:30:00 Outpatient R MEHRDAD JIMENEZ [facility] [id number] [facility] 2022-09-18 00:00:00 2022-09-18 00:00:00 Telephone Justina Melendez [facility] BUILDING 1..840.114 350.1.13.10 4.2.7.2.686 [id number] 044 [id number] [facility] 2022-09-11 00:00:00 2022-09-11 00:00:00 Patient Outreach Jorden Voraa Brad [facility] BUILDING 1.2.840.114 350.1.13.10 4.2.7.2.686 [id number] [facility] 2022-09-10 10:30:00 2022-09-10 11:24:46 Outpatient R JUSTINA MELENDEZ OGECHUKWU [facility] [id number] [facility] 2022-09-10 10:30:00 2022-09-10 11:24:46 Office Visit Justina Melendez [facility] BUILDING 1.2.840.114 350.1.13.10 4.2.7.2.686 [id number] [id number] [facility] 2022-09-09 00:00:00 2022-09-09 00:00:00 Telephone Jess Doan [facility] MED[facility] BUILDING 1..840.114 350.1.13.10 4.2.7.2.686 [id number] [facility] 2022-09-08 00:00:00 2022-09-08 00:00:00 Patient Secure Msg Doctor Unassigned, [place] [facility] PROFESSIO NAL BUILDING 1..840.114 350.1.13.10 4.2.7.2.686 [id number] [facility] 2022-09-01 09:20:00 2022-09-01 11:06:40 Outpatient R GRUPO CROUCH [facility] [id number] [facility] 2022-09-01 09:20:00 2022-09-01 11:06:40 Office Visit Grupo Crouch do, Ann K N [facility] MULTISPEC IALTY [facility] 1.840.114 350.1.13.10 4.2.7.2.686 [id number] [facility] 2022-09-01 08:45:00 2022-09-01 09:00:00 Pmo Business Analyst Visit Vtc-Lab [employer]ouch [facility]ULT[facility]PEC [facility]TY [facility] 1.84.114 350.1.13.10 4.2.7.2.686 [id number] [facility] 2022-08-29 14:00:00 2022-08-29 14:00:00 Outpatient JUSTINA TRUJILLO OGECHUKWU [facility] [id number] [facility] 2022-08-29 13:30:00 2022-08-29 13:30:00 Outpatient R MEHRDAD JIMENEZ [facility] [id number] [facility] 2022-08-26 00:00:00 2022-08-26 00:00:00 Telephone [employer]ouch [facility]TY [facility] 1.2840.114 350.1.13.10 4.2.7.2.686 [id number] [facility] 2022-08-22 00:00:00 2022-08-22 00:00:00 Telephone Amena Veliz do [facility]PEC [facility]TY [facility] 1.20.114 350.1.13.10 4.2.7.2.686 [id number] [facility] 2022-08-21 10:30:00 2022-08-21 11:21:14 [facility] [id number] [facility] 2022-08-21 10:30:00 2022-08-21 11:21:14 Office Visit Ita Cai [facility] 1..114 350.1.13.10 4.2.7.2.686 [id number] [id number] [facility] 2022-08-21 00:00:00 2022-08-21 00:00:00 Orders Only Doctor Unassigned, [place] [facility] 1.0.114 350.1.13.10 4.2.7.2.686 [id number] [facility] 2022-08-20 00:00:00 2022-08-20 00:00:00 Telephone Jess Doan [facility] DESTINYMARY KAY [facility]ILD[facility] 1.2.114 350.1.13.10 4.2.7.2.686 [id number] [facility] 2022-08-19 11:30:00 2022-08-19 11:30:00 Outpatient R JESS DOAN [facility] [id number] [facility] 2022-08-19 00:00:00 2022-08-19 00:00:00 Telephone [facility] 1.2.840.114 350.1.13.10 4.2.7.2.686 [id number] [facility] 2022-08-19 00:00:00 2022-08-19 00:00:00 Telephone Grupo Johns [facility] SPECIALTY [facility] 1.2.840.114 350.1.13.10 4.2.7.2.686 [id number] [facility] 2022-08-15 00:00:00 2022-08-15 00:00:00 Telephone ZieglerAlena reed [facility] 1.2.840.114 350.1.13.10 4.2.7.2.686 [id number] [id number] [facility] 2022-08-13 00:00:00 2022-08-13 00:00:00 Telephone [address] Crouch [facility] 1.2840.114 350.1.13.10 4.2.7.2.686 [id number] [facility] 2022-08-13 00:00:00 2022-08-13 00:00:00 Refill [facility] 1.2.840.114 350.1.13.10 4.2.7.2.686 [id number] [facility] 2022-08-12 00:00:00 2022-08-12 00:00:00 Transition of Care Bobbi Humphries 1.2.840.114 350.1.13.10 4.2.7.2.686 [id number] [facility] 2022-08-12 00:00:00 2022-08-12 00:00:00 Tele[address] Cr[address] [facility] 1.840.114 350.1.13.10 4.2.7.2.686 [id number] [facility] 2022-08-07 21:42:00 2022-08-11 17:42:00 Inpatient U RUELAS [facility] [id number] [facility] 2022-08-07 21:42:00 2022-08-11 17:42:00 Hospital En[facility] 1..840.114 350.1.13.10 4.2.7.2.686 [id number] [facility] 2022-08-06 10:30:00 2022-08-06 10:30:00 Outpatient R JUSTINA MELENDEZ OGECHUKWU [facility] [id number] [facility] 2022-07-31 09:49:15 2022-07-31 23:59:00 Outpatient R JESS DOAN [facility] [id number] [facility] 2022-07-31 09:49:15 2022-07-31 23:59:00 Hospital Encounter Jess Doan [facility] 1..840.114 350.1.13.10 4.2.7.2.686 [id number] [facility] 2022-07-22 13:00:00 2022-07-22 13:00:00 Outpatient R MARIOLA CORRAL [facility] [id number] [facility] 2022-07-15 09:20:00 2022-07-15 09:30:13 Outpatient R MICHELLE MCDERMOTT [facility] [id number] [facility] 2022-07-15 09:20:00 2022-07-15 09:30:13 Office Visit Michelle Mc[facility] 1.2.840.114 350.1.13.10 4.2.7.2.686 [id number] [facility] 2022-07-10 00:00:00 2022-07-10 00:00:00 Telephone Griffin Guevara [facility] BUILD[facility] 1.2.840.114 350.1.13.10 4.2.7.2.686 [id number] [facility] 2022-07-10 00:00:00 2022-07-10 00:00:00 Telephone Ita Cai [facility] BUILDING 1.2.840.114 350.1.13.10 4.2.7.2.686 [id number] [id number] [facility] 2022-07-08 00:00:00 2022-07-08 00:00:00 Telephone Griffin GuevaraHSandy [facility] 1.2.840.114 350.1.13.10 4.2.7.2.686 [id number] [facility] 2022-07-07 00:00:00 2022-07-07 00:00:00 Telephone [employer] [facility] 1.2840.114 350.1.13.10 4.2.7.2.686 [id number] [facility] 2022-07-07 00:00:00 2022-07-07 00:00:00 Patient Secure Msg Doctor Unassigned, [place] [facility] 1.2840.114 350.1.13.10 4.2.7.2.686 [id number] [facility] 2022-07-04 11:00:00 2022-07-04 11:00:00 Outpatient R AMENA VELIZ DO [facility] [id number] [facility] 2022-07-04 11:00:00 2022-07-04 11:00:00 Pmo Business Analyst Visit 2, Adc Lab Karrie millard Amena K N [facility] BUILDING 1..114 350.1.13.10 4.2.7.2.686 [id number] [facility] 2022-06-19 00:00:00 2022-06-19 00:00:00 Telephone [employer] [facility] 1.114 350.1.13.10 4.2.7.2.686 [id number] [facility] 2022-06-16 00:00:00 2022-06-16 00:00:00 Orders Only Doctor Unassigned, [place] [facility] 1.114 350.1.13.10 4.2.7.2.686 [id number] [facility] 2022-06-13 00:00:00 2022-06-13 00:00:00 Outpatient R JUSTINA MELENDEZ OGECHUKWU [facility] [id number] [facility] 2022-06-10 12:00:00 2022-06-10 12:19:37 Outpatient R JUSTINA MELENDEZ OGECHUKWU [facility] [id number] [facility] 2022-06-10 12:00:00 2022-06-10 12:19:37 Office Visit Justina Melendez [facility] BUILDING 1.840.114 350.1.13.10 4.2.7.2.686 [id number] [facility] 2022-05-19 10:40:00 2022-05-19 10:40:00 Outpatient R JUSTINA MELENDEZ JUSTINA [facility] RAD [id number] [facility] 2022-05-09 11:00:00 2022-05-09 11:05:39 Outpatient R ITA CAI SHIARBlaine [facility] [id number] [facility] 2022-05-09 11:00:00 2022-05-09 11:05:39 Office Visit Ita Cai [facility] 1.840.114 350.1.13.10 4.2.7.2.686 [id number] [facility] 2022-05-09 00:00:00 2022-05-09 00:00:00 Orders Only Doctor Unassigned, [place] [facility] 1.840.114 350.1.13.10 4.2.7.2.686 [id number] [facility] 2022-05-08 08:43:10 2022-05-08 23:59:00 [facility] [id number] [facility] 2022-05-08 08:43:10 2022-05-08 23:59:00 Hospital Encounter Ita Cai [facility] 1.840.114 350.1.13.10 4.2.7.2.686 [id number] [facility] 2022-05-02 00:00:00 2022-05-02 00:00:00 Patient Secure Msg Doctor Unassigned, [place] [facility] 1.840.114 350.1.13.10 4.2.7.2.686 [id number] [facility] 2022-05-02 00:00:00 2022-05-02 00:00:00 Orders Only Doctor Unassigned, [place] [facility] 1.2.840.114 350.1.13.10 4.2.7.2.686 [id number] [facility] 2022-04-28 00:00:00 2022-04-28 00:00:00 Telephone Ita Cai [facility] BUILDING 1.2.840.114 350.1.13.10 4.2.7.2.686 [id number] [facility] 2022-04-28 00:00:00 2022-04-28 00:00:00 Telephone Jess Doan [facility]?GINA [facility] 1.2.840.114 350.1.13.10 4.2.7.2.686 [id number] [facility] 2022-04-28 00:00:00 2022-04-28 00:00:00 Telephone Ita Cai [facility] BUILDING 1.2.840.114 350.1.13.10 4.2.7.2.686 [id number] [facility] 2022-04-25 10:00:00 2022-04-25 10:00:00 Outpatient R GRIFFIN GUEVARA [facility] [id number] [facility] 2022-04-25 10:00:00 2022-04-25 10:00:00 Outpatient R GRIFFIN GUEVARA [facility] [id number] [facility] 2022-04-24 09:30:00 2022-04-24 09:30:00 Outpatient R GRIFFIN GUEVARA [facility] [id number] [facility] 2022-04-23 10:22:25 2022-04-23 23:59:00 Outpatient R JESS DOAN [facility] [id number] [facility] 2022-04-23 10:22:25 2022-04-23 23:59:00 Hospital Encounter Jess Doan [facility] 1.0.114 350.1.13.10 4.2.7.2.686 [id number] [facility] 2022-04-22 11:30:00 2022-04-22 11:30:00 Office Visit Justina Melendez [facility] PROFESSIO NAL BUILDING 1.840.114 350.1.13.10 4.2.7.2.686 [id number] [facility] 2022-04-22 10:00:00 2022-04-22 10:15:00 Pmo Business Analyst Visit Tech, [facility] Sleep Lab Alexandre Kelly [facility] 1.840.114 350.1.13.10 4.2.7.2.686 [id number] [facility] 2022-04-22 10:00:00 2022-04-22 10:00:00 Outpatient ALEXANDRE SOMMERS STRAIABrad [facility] [id number] [facility] 2022-04-22 00:00:00 2022-04-22 00:00:00 Orders Only Doctor Unassigned, [place] [facility] 1.840.114 350.1.13.10 4.2.7.2.686 [id number] [facility] 2022-04-16 13:00:00 2022-04-16 14:30:00 Pmo Business Analyst Visit Therapist, Adc Respiratory Teresita Whittington [facility] 1..114 350.1.13.10 4.2.7.2.686 [id number] [facility] 2022-04-16 13:00:00 2022-04-16 13:00:00 Outpatient TERESITA LACY [facility] [id number] [facility] 2022-04-16 00:00:00 2022-04-16 00:00:00 Orders Only Ita Cai [facility] 1.84.114 350.1.13.10 4.2.7.2.686 [id number] [facility] 2022-04-11 08:00:00 2022-04-11 09:02:26 Outpatient R DENISE DUKE [facility] [id number] [facility] 2022-04-11 08:00:00 2022-04-11 09:02:26 Office Visit Denise Duke [facility] 1.840.114 350.1.13.10 4.2.7.2.686 [id number] [facility] 2022-04-10 09:00:00 2022-04-10 09:00:00 Outpatient R ALEXANDRE KELLY STRAHIL [facility] [id number] [facility] 2022-04-08 13:30:00 2022-04-08 13:48:19 Outpatient R JUSTINA MELENDEZ OGECHUKWU [facility] [id number] [facility] 2022-04-08 13:30:00 2022-04-08 13:48:19 Office Visit Justina Melendez [facility] 1.840.114 350.1.13.10 4.2.7.2.686 [id number] [facility] 2022-04-08 00:00:00 2022-04-08 00:00:00 Orders Only Doctor Unassigned, [place] [facility] 1.2840.114 350.1.13.10 4.2.7.2.686 [id number] [facility] 2022-04-01 10:30:00 2022-04-01 10:30:00 Outpatient R DENISE DUKE [facility] [id number] [facility] 2022-03-28 10:51:56 2022-03-28 23:59:00 Outpatient R MARITZA CAIBlaine CAIYOANAARBlaine [facility] [id number] [facility] 2022-03-28 10:51:56 2022-03-28 23:59:00 Hospital Encounter Ita Cai [facility] 1.2.840.114 350.1.13.10 4.2.7.2.686 [id number] [facility] 2022-03-28 10:30:00 2022-03-28 10:30:00 Outpatient R JUSTINA MELENDEZ OGECHUKWU [facility] [id number] [facility] 2022-03-28 09:30:00 2022-03-28 10:22:22 Office Visit Maritza Caiblaine [facility] PROFESSIO [facility] 1.2.840.114 350.1.13.10 4.2.7.2.686 [id number] [facility] 2022-03-24 12:09:00 2022-03-24 13:44:00 Emergency X CANDY VACA [facility] ERT [id number] [facility] 2022-03-24 12:09:00 2022-03-24 13:44:00 Emergency AuCandy barreraa [facility] 1.2.840.114 350.1.13.10 4.2.7.2.686 [id number] [facility] 2022-03-19 10:00:00 2022-03-19 10:00:00 Outpatient R JUSTINA MELENDEZ OGECHUKWU [facility] [id number] [facility] 2022-03-06 00:00:00 2022-03-06 00:00:00 Outpatient R JESS DOAN [facility] [id number] [facility] 2022-02-25 10:00:00 2022-02-25 10:00:00 Outpatient R DENISE DUKE [facility] [id number] [facility] 2022-02-18 14:30:00 2022-02-18 14:45:00 [employer] Business Analyst Visit Lab, Ang - Db [facility] 1.2.840.114 350.1.13.10 4.2.7.2.686 [id number] [facility] 2022-02-18 14:00:00 2022-02-18 14:00:00 Office Visit Franki [facility] [place] 1..840.114 350.1.13.10 4.2.7.2.686 [id number] [facility] 2022-02-18 14:00:00 2022-02-18 13:50:14 Outpatient R JESS DOAN [facility] [id number] [facility] 2022-02-04 00:00:00 2022-02-04 00:00:00 Pieter Farrell [facility] BUILD[facility] 1..840.114 350.1.13.10 4.2.7.2.686 [id number] [facility] 2022-02-03 11:20:00 2022-02-03 12:39:43 Outpatient R MICHELLE MCDERMOTT [facility] [id number] [facility] 2022-02-03 11:20:00 2022-02-03 12:39:43 Office Visit Michelle Mcdermott [facility] BUILDING 1.2.840.114 350.1.13.10 4.2.7.2.686 [id number] [facility] 2022-02-03 00:00:00 2022-02-03 00:00:00 Telephone iMchelle Mcdermott [facility] 1.114 350.1.13.10 4.2.7.2.686 [id number] [facility] 2022-02-02 00:00:00 2022-02-02 00:00:00 Refill Rafi Gaona [facility] 1.114 350.1.13.10 4.2.7.2.686 [id number] [facility] 2022-01-31 00:00:00 2022-01-31 00:00:00 Refill Madelaine-Tommie millard, [facility]uchamp [facility] 1.114 350.1.13.10 4.2.7.2.686 [id number] [facility] 2022-01-28 13:00:00 2022-01-28 13:00:00 Outpatient GRIFFIN TERRY [facility] [id number] [facility] 2022-01-28 09:00:00 2022-01-28 09:00:00 Outpatient GRIFFIN TERRY [facility] [id number] [facility] 2022-01-21 15:00:00 2022-01-21 15:00:00 Outpatient EV REN [facility] [id number] [facility] 2022-01-21 13:30:00 2022-01-21 13:30:00 Outpatient JESS GREGORY [facility] [id number] [facility] 2022-01-17 00:00:00 2022-01-17 00:00:00 Refill Madelaine-Tommie millard, Amena K N [facility] 1.114 350.1.13.10 4.2.7.2.686 [id number] [facility] 2022-01-12 00:00:00 2022-01-12 00:00:00 Patient Secure Diann Corbin [facility] BUILD[facility] 1.2.840.114 350.1.13.10 4.2.7.2.686 [id number] [facility] 2022-01-08 12:00:00 2022-01-08 12:00:00 Outpatient R FRANKI [facility] [id number] [facility] 2022-01-08 12:00:00 2022-01-08 12:00:00 Outpatient R DOAN [facility] [id number] [facility] 2022-01-07 11:30:00 2022-01-07 11:45:00 Pmo Business Analyst Visit 2, Adc Lab Pieter Law Sendil K.HSandy [facility] 1..840.114 350.1.13.10 4.2.7.2.686 [id number] [facility] 2022-01-07 11:30:00 2022-01-07 11:30:00 Outpatient GRIFFIN TERRY [facility] [id number] [facility] 2022-01-06 00:00:00 2022-01-06 00:00:00 Griffin MoscosoHSandy [facility] 1.2.840.114 350.1.13.10 4.2.7.2.686 [id number] [facility] 2022-01-03 10:00:00 2022-01-03 10:42:23 Pmo Business Analyst Visit 2, Adc Lab Griffin GuevaraHSandy [facility] BUILDING 1.2.840.114 350.1.13.10 4.2.7.2.686 [id number] [facility] 2022-01-03 10:00:00 2022-01-03 10:00:00 Outpatient GRIFFIN TERRY [facility] [id number] [facility] 2022-01-03 00:00:00 2022-01-03 00:00:00 Telephone [employer] [facility] 1.840.114 350.1.13.10 4.2.7.2.686 [id number] [facility] 2021-12-25 10:00:00 2021-12-25 10:00:00 Outpatient GRIFFIN TERRY [facility] [id number] [facility] 2021-12-25 10:00:00 2021-12-25 10:00:00 Outpatient GRIFFIN TERRY [facility] [id number] [facility] 2021-12-24 14:40:00 2021-12-24 14:40:00 Outpatient R PIETER LAW [facility] [id number] [facility] 2021-12-24 10:20:00 2021-12-24 12:04:59 Outpatient R PIETER LAW [facility] [id number] [facility] 2021-12-24 10:20:00 2021-12-24 12:04:59 Office Visit Pieter Law [facility] 1..840.114 350.1.13.10 4.2.7.2.686 [id number] [facility] 2021-12-16 00:00:00 2021-12-16 00:00:00 Denise Monahan [facility] 1..840.114 350.1.13.10 4.2.7.2.686 [id number] [facility] 2021-12-13 00:00:00 2021-12-13 00:00:00 Telephone [employer] [facility] 1.114 350.1.13.10 4.2.7.2.686 [id number] [facility] 2021-12-05 10:20:00 2021-12-05 11:16:21 Outpatient R TOYA CROUCHMAD [facility] [id number] [facility] 2021-12-05 10:20:00 2021-12-05 11:16:21 Office Visit Sanjeev Crouchd Wili[facility] 1.84.114 350.1.13.10 4.2.7.2.686 [id number] [facility] 2021-12-05 10:20:00 2021-12-05 11:16:21 Outpatient R GRUPO CROUCH [facility] [id number] [facility] 2021-12-05 10:20:00 2021-12-05 11:16:21 Outpatient R TOYA CROUCHMAD [facility] [id number] [facility] 2021-12-05 00:00:00 2021-12-05 00:00:00 Telephone Griffin Guevara [facility] 1.840.114 350.1.13.10 4.2.7.2.686 [id number] [facility] 2021-12-03 12:00:00 2021-12-03 12:15:00 Pmo Business Analyst Visit Pob, Adc Lab Main Griffin Guevara [facility] 1..840.114 350.1.13.10 4.2.7.2.686 [id number] [facility] 2021-12-03 12:00:00 2021-12-03 12:00:00 Outpatient R GRIFFIN GUEVARA [facility] [id number] [facility] 2021-12-03 00:00:00 2021-12-03 00:00:00 Telephone Rafi Gaona Jose [facility] 1.840.114 350.1.13.10 4.2.7.2.686 [id number] [facility] 2021-11-28 00:00:00 2021-11-28 00:00:00 Telephone [employer] [facility] 1.840.114 350.1.13.10 4.2.7.2.686 [id number] [facility] 2021-11-26 00:00:00 2021-11-26 00:00:00 Telephone Denise Duke [facility] 1..840.114 350.1.13.10 4.2.7.2.686 [id number] [facility] 2021-11-25 09:40:00 2021-11-25 09:40:00 Outpatient R PIETER LAW [facility] [id number] [facility] 2021-11-22 00:00:00 2021-11-22 00:00:00 Patient Secure Msg Doctor Unassigned, [place] [facility] BUILD[facility] 1..840.114 350.1.13.10 4.2.7.2.686 [id number] [facility] 2021-11-19 09:00:00 2021-11-19 09:00:00 Outpatient R DENISE DUKE [facility] [id number] [facility] 2021-11-15 00:00:00 2021-11-15 00:00:00 Refill Denise Duke [facility] BUILDING 1.2.840.114 350.1.13.10 4.2.7.2.686 [id number] [facility] 2021-11-11 10:20:00 2021-11-11 10:20:00 Outpatient R GAMILLA-CRU DO, [facility] [id number] [facility] 2021-11-11 10:20:00 2021-11-11 10:20:00 Outpatient R GAMILLA-CRU DO, [facility] [id number] [facility] 2021-11-11 10:20:00 2021-11-11 10:20:00 Outpatient R GAMILLA-CRU DO, [facility] [id number] [facility] 2021-11-11 10:20:00 2021-11-11 10:20:00 Outpatient R GAMILLA-CRU DO, [facility] [id number] [facility] 2021-11-07 09:41:15 2021-11-07 23:59:00 [facility] 1..840.114 350.1.13.10 4.2.7.2.686 [id number] [facility] 2021-11-07 09:39:16 2021-11-07 09:40:00 Hospital Encounter [facility] 1.2.840.114 350.1.13.10 4.2.7.2.686 [id number] [facility] 2021-11-07 09:37:36 2021-11-07 09:38:00 [facility] 1.2.840.114 350.1.13.10 4.2.7.2.686 [id number] [facility] 2021-11-07 09:36:26 2021-11-07 09:36:26 Outpatient R GRIFFNI GUEVARA [facility] [id number] [facility] 2021-11-07 09:36:26 2021-11-07 09:36:26 Hospital Encounter Griffin Guevara [facility] 1.2840.114 350.1.13.10 4.2.7.2.686 [id number] [facility] 2021-11-07 00:00:00 2021-11-07 00:00:00 Orders Only Doctor Unassigned, [place] [facility] 1.20.114 350.1.13.10 4.2.7.2.686 [id number] [facility] 2021-10-24 00:00:00 2021-10-24 00:00:00 Refill Pieter Law [facility] PROF[facility] NAL BUILDING 1.2.840.114 350.1.13.10 4.2.7.2.686 [id number] [facility] 2021-10-24 00:00:00 2021-10-24 00:00:00 Refill Denise Duke [facility] PROFESS[facility] NAL BUILDING 1.2.840.114 350.1.13.10 4.2.7.2.686 [id number] [facility] 2021-10-23 10:00:00 2021-10-23 10:26:55 Outpatient R GRIFFIN GUEVARA [facility] [id number] [facility] 2021-10-23 10:00:00 2021-10-23 10:26:55 Office Visit [facility] 1.2.840.114 350.1.13.10 4.2.7.2.686 [id number] [facility] 2021-10-23 10:00:00 2021-10-23 10:26:55 Outpatient R GRIFFIN GUEVARA [facility] [id number] [facility] 2021-10-23 10:00:00 2021-10-23 10:00:00 Outpatient R GRIFFIN GUEVARA [facility] [id number] [facility] 2021-10-11 00:00:00 2021-10-11 00:00:00 Refill [employer] [facility] 1.2.840.114 350.1.13.10 4.2.7.2.686 [id number] [facility] 2021-09-25 11:30:00 2021-09-25 11:30:00 Outpatient R JUSTINA MELENDEZ OGECHUKWU [facility] [id number] [facility] 2021-09-25 00:00:00 2021-09-25 00:00:00 Telephone Pieter Law [facility] 1.2.840.114 350.1.13.10 4.2.7.2.686 [id number] [facility] 2021-09-24 13:30:00 2021-09-24 13:30:00 Outpatient DENISE PERDUE [facility] [id number] [facility] 2021-09-19 00:00:00 2021-09-19 00:00:00 Refill Denise Duke [facility] 1.2.840.114 350.1.13.10 4.2.7.2.686 [id number] [facility] 2021-09-18 08:30:00 2021-09-18 08:30:00 Outpatient R JUSTINA MELENDEZ OGECHUKWU [facility] [id number] [facility] 2021-09-18 00:00:00 2021-09-18 00:00:00 Patient [facility] 1.2.840.114 350.1.13.10 4.2.7.2.686 [id number] [facility] 2021-09-17 07:59:12 2021-09-17 23:59:00 Outpatient [facility] [id number] [facility] 2021-08-27 15:40:00 2021-08-27 16:00:00 Office Visit Parag [facility] 1.2.840.114 350.1.13.10 4.2.7.2.686 [id number] [facility] 2021-08-27 15:40:00 2021-08-27 15:40:00 Outpatient HARVEY [facility] [id number] [facility] 2021-08-22 00:00:00 2021-08-22 00:00:00 Telephone Griffin Guevara [facility] 1.2.840.114 350.1.13.10 4.2.7.2.686 [id number] [facility] 2021-08-15 00:00:00 2021-08-15 00:00:00 Refill Denise Duke [facility] BUILDING 1.2.840.114 350.1.13.10 4.2.7.2.686 [id number] [facility] 2021-08-06 13:30:00 2021-08-06 13:30:00 Outpatient DENISE PERDUE [facility] [id number] [facility] 2021-08-01 11:00:00 2021-08-01 11:30:00 Nurse Visit 1, Adc Infusion Chair Jess Doan [facility] 1.2.840.114 350.1.13.10 4.2.7.2.686 [id number] [facility] 2021-08-01 11:00:00 2021-08-01 11:00:00 [facility] [id number] [facility] 2021-08-01 11:00:00 2021-08-01 11:00:00 Outpatient R FRANKI [facility] [id number] [facility] 2021-08-01 00:00:00 2021-08-01 00:00:00 [facility] 1.2.840.114 350.1.13.10 4.2.7.2.686 [id number] [facility] 2021-07-29 00:00:00 2021-07-29 00:00:00 Fortunato Carpenter [facility] 1.2.840.114 350.1.13.10 4.2.7.2.686 [id number] [facility] 2021-07-23 14:30:00 2021-07-23 14:30:00 Outpatient JORI HUITRON [facility] [id number] [facility] 2021-07-18 00:00:00 2021-07-18 00:00:00 Telephone Jeff Bernard [facility] PROFESS[facility] NAL BUILDING 1.2.840.114 350.1.13.10 4.2.7.2.686 [id number] [facility] 2021-07-16 13:16:51 2021-07-16 23:59:00 Outpatient JEFF WILSON HOWARD [facility] [id number] [facility] 2021-07-16 13:16:51 2021-07-16 23:59:00 Hospital Encounter Joana, Jeff [facility] 1..840.114 350.1.13.10 4.2.7.2.686 [id number] [facility] 2021-07-16 13:16:51 2021-07-16 23:59:00 Outpatient JEFF WILSON HOWARD [facility] [id number] [facility] 2021-07-16 00:00:00 2021-07-16 00:00:00 Outpatient JEFF WILSON HOWARD [facility] [id number] [facility] 2021-07-10 00:00:00 2021-07-10 00:00:00 Refill Den[facility] 1..840.114 350.1.13.10 4.2.7.2.686 [id number] [facility] 2021-07-09 12:30:00 2021-07-09 12:45:00 Pmo Business Analyst Visit Lab, Rick - Zachary Doan [facility] MED[facility] OFF[facility] BUILD[facility] 1..840.114 350.1.13.10 4.2.7.2.686 [id number] [facility] 2021-07-09 12:00:00 2021-07-09 12:19:46 Outpatient R FRANKI [facility] [id number] [facility] 2021-07-09 12:00:00 2021-07-09 12:19:46 Office Visit Franki [facility] MED[facility] OFF[facility] BUILDING 1..840.114 350.1.13.10 4.2.7.2.686 [id number] [facility] 2021-07-09 12:00:00 2021-07-09 12:00:00 Outpatient Roopa DOAN [facility] [id number] [facility] 2021-07-09 00:00:00 2021-07-09 00:00:00 Refill Juan AntonioDenise riley [facility] 1.2.840.114 350.1.13.10 4.2.7.2.686 [id number] [facility] 2021-07-08 00:00:00 2021-07-08 00:00:00 Refill Griffin Guevara [facility] BUILD[facility] 1.2.840.114 350.1.13.10 4.2.7.2.686 [id number] [facility] 2021-07-08 00:00:00 2021-07-08 00:00:00 Telephone Griffin Guevara [facility] BUILD[facility] 1..840.114 350.1.13.10 4.2.7.2.686 [id number] [facility] 2021-07-08 00:00:00 2021-07-08 00:00:00 Refill LeilaniDenise [facility] 1.2.840.114 350.1.13.10 4.2.7.2.686 [id number] [facility] 2021-07-05 13:30:00 2021-07-05 13:30:00 Outpatient R DENISE DUKE [facility] [id number] [facility] 2021-07-05 00:00:00 2021-07-05 00:00:00 Refill Jess Doan [facility] BUILD[facility] 1..840.114 350.1.13.10 4.2.7.2.686 [id number] [facility] 2021-07-05 00:00:00 2021-07-05 00:00:00 Telephone Jori Stewart [facility] 1..840.114 350.1.13.10 4.2.7.2.686 [id number] [facility] 2021-06-24 10:40:00 2021-06-24 10:40:00 Outpatient PIETER HIGGINBOTHAM [facility] [id number] [facility] 2021-06-18 00:00:00 2021-06-18 00:00:00 Outpatient JEFF WILSON HOWARD [facility] [id number] [facility] 2021-06-10 16:20:00 2021-06-10 16:20:00 Outpatient PIETER HIGGINBOTHAM [facility] [id number] [facility] 2021-06-05 13:30:00 2021-06-05 13:30:00 Outpatient DENISE PERDUE [facility] [id number] [facility] 2021-06-03 13:40:00 2021-06-03 13:40:00 Outpatient PIETER HIGGINBOTHAM [facility] [id number] [facility] 2021-05-03 10:00:00 2021-05-03 10:00:00 Outpatient DENISE PERDUE [facility] [id number] [facility] 2021-04-29 07:51:50 2021-04-29 23:59:00 Outpatient AUTUMN GIFFORD [facility] [id number] [facility] 2021-04-29 07:51:50 2021-04-29 23:59:00 [facility] ..840.114 350.1.13.10 4.2.7.2.686 [id number] [facility] 2021-04-29 00:00:00 2021-04-29 00:00:00 Outpatient AUTUMN GIFFORD [facility] [id number] [facility] 2021-04-25 14:30:00 2021-04-25 14:35:12 Pmo Business Analyst Visit 2, Adc Lab Griffin Guevara [facility] 1..840.114 350.1.13.10 4.2.7.2.686 [id number] [facility] 2021-04-25 14:30:00 2021-04-25 14:30:00 [facility] [id number] [facility] 2021-04-25 14:00:00 2021-04-25 14:28:31 Office Visit Griffin Guevara [facility] 1..840.114 350.1.13.10 4.2.7.2.686 [id number] [facility] 2021-04-25 14:00:00 2021-04-25 14:28:31 Outpatient R GRIFFIN GUEVARA [facility] [id number] [facility] 2021-03-27 13:45:55 2021-03-27 23:59:00 Outpatient R RAFI GAONA [facility] [id number] [facility] 2021-03-27 13:45:00 2021-03-27 23:59:00 Hospital Encounter Rafi Gaona [facility] 1..840.114 350.1.13.10 4.2.7.2.686 [id number] [facility] 2021-03-27 11:30:00 2021-03-27 12:30:00 Nurse Visit Therapy, Dusty De La O [facility] OFFICE BUILDING 1..840.114 350.1.13.10 4.2.7.2.686 [id number] [facility] 2021-03-27 00:00:00 2021-03-27 00:00:00 Telephone Amena Veliz do [facility] 1.840.114 350.1.13.10 4.2.7.2.686 [id number] [facility] 2021-03-26 13:15:00 2021-03-26 13:30:00 Laboratory Only Only, Adc Test Amaya Jensen [facility] 1.0.114 350.1.13.10 4.2.7.2.686 [id number] [facility] 2021-03-26 13:15:00 2021-03-26 13:15:00 Outpatient AMAYA BUCKLEY [facility] [id number] [facility] 2021-03-26 00:00:00 2021-03-26 00:00:00 Telephone Rafi Gaona [facility] 1..114 350.1.13.10 4.2.7.2.686 [id number] [facility] 2021-03-26 00:00:00 2021-03-26 00:00:00 Telephone Amena Veliz do Blaine [facility] 1..114 350.1.13.10 4.2.7.2.686 [id number] [facility] 2021-03-22 00:00:00 2021-03-22 00:00:00 Telephone Jeff Bernard [facility]?GINA GERRYFRANCESCO MED[facility] OFF[facility] BUILDING 1..114 350.1.13.10 4.2.7.2.686 [id number] [facility] 2021-03-18 09:00:00 2021-03-18 09:00:00 Outpatient DEVAUGHN RODRIGUEZ [facility] [id number] [facility] 2021-03-14 00:00:00 2021-03-14 00:00:00 Telephone Jeff Bernard Gurdeep [facility]?GINA [facility] MEDICAL OFFICE BUILDING 1..840.114 350.1.13.10 4.2.7.2.686 [id number] [facility] 2021-03-13 19:00:00 2021-03-13 21:37:00 Emergency X MINA ROSAN [facility] ERT [id number] [facility] 2021-03-13 18:20:00 2021-03-13 18:40:48 Outpatient R SUE CAMPA [facility] [id number] [facility] 2021-03-13 18:20:00 2021-03-13 18:40:48 Urgent Care LokeshSue mann Unknown, Attending [facility] 1..840.114 350.1.13.10 4.2.7.2.686 [id number] [facility] 2021-02-27 11:00:00 2021-02-27 11:00:00 Outpatient R GRIFFIN GUEVARA [facility] [id number] [facility] 2021-02-27 00:00:00 2021-02-27 00:00:00 Telephone Griffin Guevara [facility] BUILDING 1.2.840.114 350.1.13.10 4.2.7.2.686 [id number] [facility] 2021-02-25 14:20:00 2021-02-25 14:20:00 Outpatient R SUE CAMPA [facility] [id number] [facility] 2021-02-25 13:37:20 2021-02-25 13:57:20 Urgent Care LokeshRadha [facility] BUILDING 1.2.840.114 350.1.13.10 4.2.7.2.686 [id number] [facility] 2021-02-20 00:00:00 2021-02-20 00:00:00 Telephone [facility]GINA [facility] OFF[facility] BUILDING 1.2.840.114 350.1.13.10 4.2.7.2.686 [id number] [facility] 2021-02-15 16:01:01 2021-02-15 16:21:01 Urgent Care EbrahiCarmela eldridge [facility] DESTINY?WHITLEYWiliam [facility] 1.2.840.114 350.1.13.10 4.2.7.2.686 [id number] [facility] 2021-02-15 16:00:00 2021-02-15 16:00:00 Outpatient Roopa MARTINO ESTHER [facility] [id number] [facility] 2021-02-15 00:00:00 2021-02-15 00:00:00 Telephone [facility] 1.2.840.114 350.1.13.10 4.2.7.2.686 [id number] [facility] 2021-02-14 10:30:00 2021-02-14 10:30:00 Outpatient ATUL GREGORYJOSE DE JESUS [facility] [id number] [facility] 2021-02-14 10:30:00 2021-02-14 10:30:00 Outpatient Roopa DOAN [facility] [id number] [facility] 2021-02-11 13:40:00 2021-02-11 14:16:29 Outpatient R JEFF BERNARD HOWARD [facility] [id number] [facility] 2021-02-11 13:06:51 2021-02-11 14:16:29 Office Visit [facility] 1.84114 350.1.13.10 4.2.7.2.686 [id number] [facility] 2021-02-05 10:30:00 2021-02-05 10:30:00 Outpatient R PIETER LAW [facility] [id number] [facility] 2021-01-29 10:30:00 2021-01-29 10:30:00 Outpatient R JESS DOAN [facility] [id number] [facility] 2021-01-23 00:00:00 2021-01-23 00:00:00 Telephone [employer] [facility] 1.114 350.1.13.10 4.2.7.2.686 [id number] [facility] 2021-01-21 00:00:00 2021-01-21 00:00:00 Telephone Griffin Guevara [facility] 1.84.114 350.1.13.10 4.2.7.2.686 [id number] [facility] 2021-01-21 00:00:00 2021-01-21 00:00:00 Telephone Jess Doan [facility] 1.84114 350.1.13.10 4.2.7.2.686 [id number] [facility] 2021-01-18 00:00:00 2021-01-18 00:00:00 Telephone [employer] [facility] 1.114 350.1.13.10 4.2.7.2.686 [id number] [facility] 2021-01-18 00:00:00 2021-01-18 00:00:00 Telephone Jess Doan [facility] [id number] 350.1.13.10 4.2.7.2.686 [id number] [facility] 2021-01-17 00:00:00 2021-01-17 00:00:00 Telephone Nicolas Griffin ConstanceSandySuzanSandy [facility] 1.2.840.114 350.1.13.10 4.2.7.2.686 [id number] [facility] 2021-01-16 11:55:44 2021-01-16 23:59:00 Hospital Encounter Griffin Guevara ConstanceSandySuzanSandy [facility] 1.2.840.114 350.1.13.10 4.2.7.2.686 [id number] [facility] 2021-01-16 11:39:19 2021-01-16 11:54:00 Hospital Encounter GuevaraChelalopez EmelySandy [facility] 1.2.840.114 350.1.13.10 4.2.7.2.686 [id number] [facility] 2021-01-16 10:30:31 2021-01-16 11:29:36 Office Visit Griffin GuevaraSuzanSandy [facility] 1.2.840.114 350.1.13.10 4.2.7.2.686 [id number] [facility] 2021-01-16 10:30:00 2021-01-16 10:30:00 Outpatient R GRIFFIN GUEVARA [facility] [id number] [facility] 2021-01-16 09:37:18 2021-01-16 09:52:18 Pmo Business Analyst Visit Posushant, Adc Lab Main Amena Veliz do [facility] Building 1.2.840.114 350.1.13.10 4.2.7.2.686 [id number] [facility] 2021-01-16 00:00:00 2021-01-16 00:00:00 Telephone [employer]ouch [facility] MULTISPEC [facility]ALTY [facility] 1.840.114 350.1.13.10 4.2.7.2.686 [id number] [facility] 2021-01-15 00:00:00 2021-01-15 00:00:00 Orders Only Doctor Unassigned, [place] [facility] 1.0.114 350.1.13.10 4.2.7.2.686 [id number] [facility] 2021-01-15 00:00:00 2021-01-15 00:00:00 Telephone Amena Veliz do [facility] MULTISPEC [facility]ALTY [facility] 1.0.114 350.1.13.10 4.2.7.2.686 [id number] [facility] 2021-01-15 00:00:00 2021-01-15 00:00:00 Telephone Jess Doan [facility]?Gina pierre Medical Office Building 1.840.114 350.1.13.10 4.2.7.2.686 [id number] [facility] 2021-01-14 17:08:00 2021-01-14 23:31:00 Emergency Constance Tellez [facility] 1.840.114 350.1.13.10 4.2.7.2.686 [id number] [id number] [facility] 2021-01-14 17:08:00 2021-01-14 23:31:00 Emergency X Constance TELLEZ [facility] ERT [id number] [facility] 2021-01-11 10:15:00 2021-01-11 10:15:00 Outpatient R [facility] [id number] [facility] 2021-01-10 00:00:00 2021-01-10 00:00:00 Telephone [employer] [facility] MULTISPEC [facility]ALTY [facility] 1.84.114 350.1.13.10 4.2.7.2.686 [id number] [facility] 2021-01-08 13:30:00 2021-01-08 14:20:32 Outpatient R FRANKI [facility] [id number] [facility] 2021-01-08 13:19:07 2021-01-08 14:20:32 Office Visit Franki [facility] 1.840.114 350.1.13.10 4.2.7.2.686 [id number] [facility] 2021-01-08 00:00:00 2021-01-08 00:00:00 Telephone [facility] 1.840.114 350.1.13.10 4.2.7.2.686 [id number] 059 [id number] [facility] 2021-01-01 10:00:00 2021-01-01 10:00:00 Outpatient R [facility] [id number] [facility] 2021-01-01 00:00:00 2021-01-01 00:00:00 Telephone [employer] [facility] MULTISPEC [facility]TY [facility] 1.84.114 350.1.13.10 4.2.7.2.686 [id number] [facility] 2020-12-19 13:55:40 2020-12-19 23:59:00 Hospital Encounter Adam Fuller [facility]?Gina [facility] Medical Office Building 1..114 350.1.13.10 4.2.7.2.686 [id number] [facility] 2020-12-19 13:29:44 2020-12-19 15:55:53 Office Visit Adam Fuller [facility]Gina [facility] Medical Office Building 1.0.114 350.1.13.10 4.2.7.2.686 [id number] [facility] 2020-12-19 14:00:00 2020-12-19 14:00:00 Outpatient R FULLERKELLIIG [facility] [id number] [facility] 2020-12-18 09:20:00 2020-12-18 09:20:00 Outpatient R PIETER LAW [facility] [id number] [facility] 2020-12-07 10:30:00 2020-12-07 10:30:00 Outpatient R FORTUNATO TIM [facility] [id number] [facility] 2020-12-07 00:00:00 2020-12-07 00:00:00 Marciano Jess Doan [facility] Medical Office Building 1.114 350.1.13.10 4.2.7.2.686 [id number] [facility] 2020-12-04 15:55:42 2020-12-04 23:59:00 Hospital Encounter Pieter Law [facility] 1..114 350.1.13.10 4.2.7.2.686 [id number] [facility] 2020-12-04 15:55:42 2020-12-04 23:59:00 Hospital Encounter Pieter Law [facility] 1.2840.114 350.1.13.10 4.2.7.2.686 [id number] [facility] 2020-12-04 16:58:42 2020-12-04 17:13:42 Pmo Business Analyst Visit Pob, [facility] Lab Main Pieter Law [facility] Building 1.2.840.114 350.1.13.10 4.2.7.2.686 [id number] [facility] 2020-12-04 16:58:42 2020-12-04 17:13:42 Pmo Business Analyst Visit Po, [facility] Lab Main Pieter Law [facility] Building 1.2.840.114 350.1.13.10 4.2.7.2.686 [id number] [facility] 2020-12-04 16:57:08 2020-12-04 17:12:08 Laboratory Only Only, [facility] Test Pieter Law [facility] 1.2.840.114 350.1.13.10 4.2.7.2.686 [id number] [facility] 2020-12-04 16:57:08 2020-12-04 17:12:08 Laboratory Only Only, [facility] Test Pieter Law [facility] 1.2.840.114 350.1.13.10 4.2.7.2.686 [id number] [facility] 2020-12-04 15:19:56 2020-12-04 15:20:03 Imm/Inj Visit Nurse, [facility] Jena ImmunDenny Yu [facility] Building 1.2.840.114 350.1.13.10 4.2.7.2.686 [id number] [facility] 2020-12-04 13:31:52 2020-12-04 15:12:20 Office Visit Pieter Law [facility] 1.20.114 350.1.13.10 4.2.7.2.686 [id number] [facility] 2020-12-04 13:40:00 2020-12-04 13:40:00 Outpatient R PIETER LAW [facility] [id number] [facility] 2020-12-04 13:00:00 2020-12-04 13:00:00 Outpatient R DENNY CHARLES [facility] [id number] [facility] 2020-12-04 00:00:00 2020-12-04 00:00:00 Orders Only Doctor Unassigned, [place] [facility] 1.2840.114 350.1.13.10 4.2.7.2.686 [id number] [facility] 2020-12-04 00:00:00 2020-12-04 00:00:00 Orders Only Doctor Unassigned, [place] [facility] 1.20.114 350.1.13.10 4.2.7.2.686 [id number] [facility] 2020-11-20 11:30:00 2020-11-20 11:30:00 Outpatient LISA PEREZ [facility] [id number] [facility] 2020-11-20 10:43:43 2020-11-20 11:20:19 Office Visit Griffin Guevara [facility] 1.20.114 350.1.13.10 4.2.7.2.686 [id number] [facility] 2020-11-20 10:43:43 2020-11-20 11:20:19 Office Visit Griffin Guevara [facility] Building 1.20.114 350.1.13.10 4.2.7.2.686 [id number] [facility] 2020-11-20 11:00:00 2020-11-20 11:00:00 Outpatient R GRIFFIN GUEVARA [facility] [id number] [facility] 2020-11-05 09:20:24 2020-11-05 10:27:16 Office Visit Rafi Gaona do, Amena Beauchamp [facility] ..840.114 350.1.13.10 4.2.7.2.686 [id number] [facility] 2020-11-05 10:20:00 2020-11-05 10:20:00 Outpatient AMENA LOMBARDI DO [facility] [id number] [facility] 2020-10-29 00:00:00 2020-10-29 00:00:00 Refill Franki [facility] 1.2.840.114 350.1.13.10 4.2.7.2.686 [id number] [facility] 2020-10-24 09:00:00 2020-10-24 09:00:00 Outpatient R FRANKI [facility] [id number] [facility] 2020-10-24 00:00:00 2020-10-24 00:00:00 Refill Franki [facility] .2.840.114 350.1.13.10 4.2.7.2.686 [id number] [facility] 2020-10-22 13:00:00 2020-10-22 13:00:00 Outpatient FORTUNATO BARAJAS [facility] [id number] [facility] 2020-10-22 00:00:00 2020-10-22 00:00:00 Fortunato Martinez [facility] [place] 1.114 350.1.13.10 4.2.7.2.686 [id number] [facility] 2020-10-18 10:20:00 2020-10-18 10:20:00 Outpatient R GRUPO CROUCH [facility] [id number] [facility] 2020-10-18 00:00:00 2020-10-18 00:00:00 Telephone [employer] [facility] MULTISPEC [facility]ALTY [facility] 1.114 350.1.13.10 4.2.7.2.686 [id number] [facility] 2020-10-17 00:00:00 2020-10-17 00:00:00 Refill [facility] 1.114 350.1.13.10 4.2.7.2.686 [id number] [facility] 2020-10-15 12:15:00 2020-10-15 12:15:00 Outpatient R AMENA VELIZ DO [facility] [id number] [facility] 2020-10-15 10:59:33 2020-10-15 11:14:33 Pmo Business Analyst Visit Pob, Adc Lab Main Amena Veliz do [facility] 1..114 350.1.13.10 4.2.7.2.686 [id number] [facility] 2020-10-08 10:00:00 2020-10-08 10:00:00 Outpatient R [facility] [id number] [facility] 2020-10-03 00:00:00 2020-10-03 00:00:00 Telephone Amena [facility] 1.2.840.114 350.1.13.10 4.2.7.2.686 [id number] [facility] 2020-10-03 00:00:00 2020-10-03 00:00:00 Telephone [facility] 1.2840.114 350.1.13.10 4.2.7.2.686 [id number] [facility] 2020-09-26 00:00:00 2020-09-26 00:00:00 Telephone Amena Veliz do [facility] MULTISPEC [facility]ALTY [facility] 1.114 350.1.13.10 4.2.7.2.686 [id number] [facility] 2020-09-26 00:00:00 2020-09-26 00:00:00 Telephone Jess Doan [facility] Building 1.2.114 350.1.13.10 4.2.7.2.686 [id number] [facility] 2020-09-24 09:02:47 2020-09-24 09:17:47 Pmo Business Analyst Visit Pob, Adc Lab Main Amaya Jensen [facility] Building 1.284.114 350.1.13.10 4.2.7.2.686 [id number] [facility] 2020-09-24 09:15:00 2020-09-24 09:15:00 Outpatient R AMAYA JENSEN [facility] [id number] [facility] 2020-09-24 00:00:00 2020-09-24 00:00:00 Patient Secure Rafael Archer [facility] 1.84.114 350.1.13.10 4.2.7.2.686 [id number] [facility] 2020-09-24 00:00:00 2020-09-24 00:00:00 Telephone gopogomeraUrlistAmena Reilly do Blaine [facility] MULTISPEC [facility]TY [facility] 1.2.840.114 350.1.13.10 4.2.7.2.686 [id number] [facility] 2020-09-24 00:00:00 2020-09-24 00:00:00 Orders Only Doctor Unassigned, [place] [facility] 1.2.840.114 350.1.13.10 4.2.7.2.686 [id number] [facility] 2020-09-14 10:45:00 2020-09-14 11:29:00 Surgery Rafael Morales [facility] 1.2.840.114 350.1.13.10 4.2.7.2.686 [id number] [facility] 2020-09-14 09:18:00 2020-09-14 11:03:00 Hospital Encounter Rafael Morales [facility] 1.2.840.114 350.1.13.10 4.2.7.2.686 [id number] [facility] 2020-09-14 00:00:00 2020-09-14 00:00:00 Orders Only Doctor Unassigned, [place] [facility] 1.2.840.114 350.1.13.10 4.2.7.2.686 [id number] [facility] 2020-08-31 00:00:00 2020-08-31 00:00:00 Telephone MocoplexTommie millard, [facility] 1.2.840.114 350.1.13.10 4.2.7.2.686 [id number] [facility] 2020-08-22 13:44:51 2020-08-22 14:41:00 Office Visit Fortunato Tim [facility] 1..114 350.1.13.10 4.2.7.2.686 [id number] [facility] 2020-08-22 14:00:00 2020-08-22 14:00:00 Outpatient R FORTUNATO TIM [facility] [id number] [facility] 2020-08-15 00:00:00 2020-08-15 00:00:00 Telephone [employer] [facility] MULTISPEC [facility]ALTY [facility] 1.114 350.1.13.10 4.2.7.2.686 [id number] [facility] 2020-08-14 00:00:00 2020-08-14 00:00:00 Orders Only Doctor Unassigned, [place] [facility] 1..114 350.1.13.10 4.2.7.2.686 [id number] [facility] 2020-08-10 00:00:00 2020-08-10 00:00:00 Telephone [employer] [facility] MULTISPEC [facility]TY [facility] 1.114 350.1.13.10 4.2.7.2.686 [id number] [facility] 2020-08-02 00:00:00 2020-08-02 00:00:00 Telephone Amena Veliz do [facility] MULTISPEC [facility]TY [facility] 1.114 350.1.13.10 4.2.7.2.686 [id number] [facility] 2020-08-01 11:11:55 2020-08-01 23:59:00 Hospital Encounter Griffin Guevara [facility] 1.2.840.114 350.1.13.10 4.2.7.2.686 [id number] [facility] 2020-08-01 11:04:16 2020-08-01 11:19:16 Laboratory Only Only, Adc Test Amaya Jensen [facility] 1.2.840.114 350.1.13.10 4.2.7.2.686 [id number] [facility] 2020-08-01 11:15:00 2020-08-01 11:15:00 Outpatient R GRUPO CROUCH [facility] [id number] [facility] 2020-08-01 10:54:32 2020-08-01 11:09:32 Pmo Business Analyst Visit Pob, Adc Lab Main [employer] [facility] Building 1.2.840.114 350.1.13.10 4.2.7.2.686 [id number] [facility] 2020-08-01 00:00:00 2020-08-01 00:00:00 Orders Only Doctor Unassigned, [place] [facility] 1.2.840.114 350.1.13.10 4.2.7.2.686 [id number] [facility] 2020-08-01 00:00:00 2020-08-01 00:00:00 Telephone [employer] [facility] MULTISPEC [facility]ALTY [facility] 1.2.840.114 350.1.13.10 4.2.7.2.686 [id number] [facility] 2020-07-27 00:00:00 2020-07-27 00:00:00 Telephone Griffin Guevara [facility] Building 1.2840.114 350.1.13.10 4.2.7.2.686 [id number] [facility] 2020-07-26 00:00:00 2020-07-26 00:00:00 Telephone [employer] [facility] MULTISPEC [facility]ALTY [facility] 1.0.114 350.1.13.10 4.2.7.2.686 [id number] [facility] 2020-07-26 00:00:00 2020-07-26 00:00:00 Telephone Griffin Guevara [facility] Building 1..114 350.1.13.10 4.2.7.2.686 [id number] [id number] [facility] 2020-07-16 00:00:00 2020-07-16 00:00:00 [facility] Building 1..114 350.1.13.10 4.2.7.2.686 [id number] [facility] 2020-07-16 00:00:00 2020-07-16 00:00:00 Telephone Amena Veliz do [facility] MULTISPEC [facility]ALTY [facility] 1..114 350.1.13.10 4.2.7.2.686 [id number] [facility] 2020-07-11 15:30:00 2020-07-11 15:30:00 Outpatient JESS GREGORY [facility] [id number] [facility] 2020-07-09 00:00:00 2020-07-09 00:00:00 Refill Denise Duke [facility] Building 1.84.114 350.1.13.10 4.2.7.2.686 [id number] [facility] 2020-06-27 00:00:00 2020-06-27 00:00:00 Telephone Griffin Guevara [facility] 1..114 350.1.13.10 4.2.7.2.686 [id number] [facility] 2020-06-27 00:00:00 2020-06-27 00:00:00 Telephone Jori Stewart [facility] MULTISPEC [facility]ALTY [facility] 1..114 350.1.13.10 4.2.7.2.686 [id number] [facility] 2020-06-26 09:15:17 2020-06-26 10:15:04 Office Visit [facility]el [facility] 1.114 350.1.13.10 4.2.7.2.686 [id number] [facility] 2020-06-26 09:45:00 2020-06-26 09:45:00 Outpatient AMENA LOMBARDI DO [facility] [id number] [facility] 2020-06-26 08:59:32 2020-06-26 09:14:32 Pmo Business Analyst Visit Vtc-Lab Amena Veliz do [facility] 1.114 350.1.13.10 4.2.7.2.686 [id number] [facility] 2020-06-26 00:00:00 2020-06-26 00:00:00 Orders Only Doctor Unassigned, [place] [facility] 1..114 350.1.13.10 4.2.7.2.686 [id number] [facility] 2020-06-21 13:00:00 2020-06-21 13:00:00 Outpatient ADAM SAUCEDA [facility] [id number] [facility] 2020-06-18 00:00:00 2020-06-18 00:00:00 Telephone [facility] 1..840.114 350.1.13.10 4.2.7.2.686 [id number] [facility] 2020-06-16 11:20:00 2020-06-16 11:20:00 Outpatient [facility] [id number] [facility] 2020-06-14 00:00:00 2020-06-14 00:00:00 Telephone [facility] 1.840.114 350.1.13.10 4.2.7.2.686 [id number] [facility] 2020-06-13 15:15:00 2020-06-13 15:15:00 Outpatient ADAM SAUCEDA [facility] [id number] [facility] 2020-06-12 13:30:00 2020-06-12 13:30:00 Outpatient JORI HUITRON [facility] [id number] [facility] 2020-06-11 00:00:00 2020-06-11 00:00[facility].114 350.1.13.10 4.2.7.2.686 [id number] [facility] 2020-06-06 12:48:49 2020-06-06 23:59:00 Hospital Encounter Denise Duke [facility] 1..840.114 350.1.13.10 4.2.7.2.686 [id number] [facility] 2020-06-06 00:00:00 2020-06-06 00:00:00 Outpatient R DENISE DUKE [facility] [id number] [facility] 2020-05-29 00:00:00 2020-05-29 00:00:00 Outpatient R DENISE DUKE [facility] [id number] [facility] 2020-05-26 11:30:00 2020-05-26 11:30:00 Outpatient [facility] [id number] [facility] 2020-05-22 11:25:42 2020-05-22 12:07:27 Office Visit Griffin Guevara [facility] 1..840.114 350.1.13.10 4.2.7.2.686 [id number] [facility] 2020-05-22 11:30:00 2020-05-22 11:30:00 Outpatient R GRIFFIN GUEVARA [facility] [id number] [facility] 2020-05-22 11:30:00 2020-05-22 11:30:00 [id number] [facility] 2020-05-22 00:00:00 2020-05-22 00:00:00 Orders Only Doctor Unassigned, [place] [facility] 1..840.114 350.1.13.10 4.2.7.2.686 [id number] [facility] 2020-05-21 14:41:01 2020-05-21 15:35:03 Laboratory Only Pc, Adc Echo Room 1 - Griffin Guevara [facility] 1.2.840.114 350.1.13.10 4.2.7.2.686 [id number] [facility] 2020-05-21 15:00:00 2020-05-21 15:00:00 Outpatient R GRIFFIN GUEVARA [facility] [id number] [facility] 2020-05-21 13:00:00 2020-05-21 13:00:00 Outpatient R [facility] [id number] [facility] 2020-05-16 13:30:00 2020-05-16 13:30:00 Outpatient R JORI STEWART [facility] [id number] [facility] 2020-05-10 00:00:00 2020-05-10 00:00:00 Outpatient R JUAN ANTONIODENISE RILEY [facility] [id number] [facility] 2020-05-08 00:00:00 2020-05-08 00:00:00 Orders Only Doctor Unassigned, [place] [facility] 1.2840.114 350.1.13.10 4.2.7.2.686 [id number] [facility] 2020-05-07 13:30:00 2020-05-07 13:30:00 Outpatient R ARUNAROHIT SHEN [facility] [id number] [facility] 2020-05-04 00:00:00 2020-05-04 00:00:00 Patient Secure Jess Carrion [facility] 1.2.840.114 350.1.13.10 4.2.7.2.686 [id number] [facility] 2020-05-02 09:54:04 2020-05-02 11:14:31 Office Visit AdDenise [facility] 1.2.840.114 350.1.13.10 4.2.7.2.686 [id number] 2020-05-02 09:54:04 2020-05-02 11:14:31 Office Visit AdDenise riley [facility] 1.2.840.114 350.1.13.10 4.2.7.2.686 [id number] [facility] 2020-05-02 10:00:00 2020-05-02 10:00:00 Outpatient R LEILANI DENISE [facility] [id number] [facility] 2020-04-26 14:21:31 2020-04-26 23:59:00 Hospital Encounter Ambrocio Lynette Kathrin [facility] 1.2840.114 350.1.13.10 4.2.7.2.686 [id number] [facility] 2020-04-26 13:19:17 2020-04-26 13:34:17 Office Visit Wilfrido Angulo [facility] [id number] 350.1.13.10 4.2.7.2.686 [id number] [facility] 2020-04-26 13:00:00 2020-04-26 13:00:00 Outpatient TAYLA RODRIGUES JRRDO [facility] [id number] [facility] 2020-04-20 00:00:00 2020-04-20 00:00:00 Telephone Yeison [facility] 1.0.114 350.1.13.10 4.2.7.2.686 [id number] [facility] 2020-04-20 00:00:00 2020-04-20 00:00:00 Telephone Griffin Guevara [facility] 1.840.114 350.1.13.10 4.2.7.2.686 [id number] [facility] 2020-04-17 13:00:00 2020-04-17 23:59:00 Hospital Encounter Jess Doan [facility] 1.2840.114 350.1.13.10 4.2.7.2.686 [id number] [facility] 2020-04-17 00:00:00 2020-04-17 00:00:00 Outpatient R FRANKI [facility] [id number] [facility] 2020-04-16 00:00:00 2020-04-16 00:00:00 Orders Only Doctor Unassigned, [place] [facility] 1.2840.114 350.1.13.10 4.2.7.2.686 [id number] [id number] [facility] 2020-04-12 00:00:00 2020-04-12 00:00:00 Refill Astrid Dukeian Brad [facility] 1.2.840.114 350.1.13.10 4.2.7.2.686 [id number] [facility] 2020-04-11 00:00:00 2020-04-11 00:00:00 Orders Only Doctor Unassigned, [place] [facility] 1.2840.114 350.1.13.10 4.2.7.2.686 [id number] [id number] [facility] 2020-04-09 11:10:00 2020-04-09 11:10:00 Outpatient R RUI [facility] [id number] [facility] 2020-04-05 15:00:00 2020-04-05 15:00:00 Outpatient R JACKIE CHAN [facility] [id number] [facility] 2020-04-01 00:00:00 2020-04-01 00:00:00 Refill Jess Doan [facility] 1.2.840.114 350.1.13.10 4.2.7.2.686 [id number] [facility] 2020-03-27 00:00:00 2020-03-27 00:00:00 Orders Only Doctor Unassigned, [place] [facility] 1.2840.114 350.1.13.10 4.2.7.2.686 [id number] 009 [id number] [facility] 2020-03-20 00:00:00 2020-03-20 00:00:00 Telephone [place], Nic [facility] 1.2.840.114 350.1.13.10 4.2.7.2.686 [id number] [facility] 2020-03-19 00:00:00 2020-03-19 00:00:00 Telephone An Latham [facility] 1.2.840.114 350.1.13.10 4.2.7.2.686 [id number] 185 [id number] [facility] 2020-03-15 00:00:00 2020-03-15 00:00:00 Telephone [employer] [facility] 1.2.840.114 350.1.13.10 4.2.7.2.686 [id number] [facility] 2020-03-13 08:03:47 2020-03-13 12:08:35 Telemedici ne Visit Griffin Guevara [facility] 1.840.114 350.1.13.10 4.2.7.2.686 [id number] [id number] [facility] 2020-03-13 11:00:00 2020-03-13 11:00:00 Outpatient R GRIFFIN GUEVARA [facility] [id number] [facility] 2020-03-13 10:00:00 2020-03-13 10:00:00 Outpatient R JESS DOAN [facility] [id number] [facility] 2020-03-13 00:00:00 2020-03-13 00:00:00 Telephone Griffin Guevara [facility] 1.2.840.114 350.1.13.10 4.2.7.2.686 [id number] 059 [id number] [facility] 2020-03-08 00:00:00 2020-03-08 00:00:00 Telephone Griffin Guevara [facility] 1.840.114 350.1.13.10 4.2.7.2.686 [id number] 059 [id number] [facility] 2020-03-05 00:00:00 2020-03-05 00:00:00 Orders Only Doctor Unassigned, [place] [facility] 1.114 350.1.13.10 4.2.7.2.686 [id number] [id number] [facility] 2020-03-05 00:00:00 2020-03-05 00:00:00 Telephone Griffin Guevara [facility] Building 1.84.114 350.1.13.10 4.2.7.2.686 [id number] 059 [id number] [facility] 2020-02-29 10:45:00 2020-02-29 10:45:00 [id number] [facility] 2020-02-29 10:12:47 2020-02-29 10:27:47 Office Visit An Latham [facility] 1.84.114 350.1.13.10 4.2.7.2.686 [id number] [facility] 2020-02-28 00:00:00 2020-02-28 00:00:00 Rafi Maravilla [facility] 1..114 350.1.13.10 4.2.7.2.686 [id number] [facility] 2020-02-27 11:30:00 2020-02-27 11:30:00 Outpatient R GRIFFIN GUEVARA [facility] [id number] [facility] 2020-02-27 00:00:00 2020-02-27 00:00:00 Transition of Care Patrick [place] 1.840.114 350.1.13.10 4.2.7.2.686 [id number] [facility] 2020-02-15 23:50:00 2020-02-23 18:05:00 Hospital Encounter [facility] 1.2.840.114 350.1.13.10 4.2.7.2.686 [id number] 089 [id number] [facility] 2020-02-17 00:00:00 2020-02-17 00:00:00 Telephone Amena Veliz do [facility] 1.2840.114 350.1.13.10 4.2.7.2.686 [id number] [facility] 2020-02-17 00:00:00 2020-02-17 00:00:00 Telephone Griffin Guevara [facility] 1.2840.114 350.1.13.10 4.2.7.2.686 [id number] 059 [id number] [facility] 2020-02-15 22:02:49 2020-02-16 04:09:00 [facility] [id number] [facility] 2020-02-15 16:02:00 2020-02-15 22:09:00 Emergency E JACKIE CHAMBERS [facility] 7[address] 2020-02-13 00:00:00 2020-02-13 00:00:00 Case Management Pieter Otero [facility] 1.2.840.114 350.1.13.10 4.2.7.2.686 [id number] [id number] [facility] 2020-02-06 05:37:00 2020-02-09 16:57:00 Hospital Encounter [facility] 1.2.840.114 350.1.13.10 4.2.7.2.686 [id number] [id number] [facility] 2020-02-06 00:00:00 2020-02-06 00:00:00 Orders Only Doctor Unassigned, [place] [facility] 1.2840.114 350.1.13.10 4.2.7.2.686 [id number] [id number] [facility] 2020-02-04 10:58:08 2020-02-04 11:13:08 Pmo Business Analyst Visit Pob, Adc Lab Main [facility] Building 1..114 350.1.13.10 4.2.7.2.686 [id number] [facility] 2020-02-04 09:00:00 2020-02-04 09:00:00 Outpatient R [facility] [id number] [facility] 2020-02-03 11:21:20 2020-02-03 11:36:20 Laboratory Only Only, Adc Test Camila [facility] 1..114 350.1.13.10 4.2.7.2.686 [id number] [facility] 2020-02-03 11:00:00 2020-02-03 11:00:00 Outpatient [facility] [id number] [facility] 2020-02-03 00:00:00 2020-02-03 00:00:00 Telephone Nic Ho [facility] 1.114 350.1.13.10 4.2.7.2.686 [id number] [facility] 2020-01-31 12:57:19 2020-01-31 13:12:19 Pmo Business Analyst Visit Pob, Adc Lab Main [facility] Building 1..114 350.1.13.10 4.2.7.2.686 [id number] [facility] 2020-01-31 13:00:00 2020-01-31 13:00:00 Outpatient R [facility] [id number] [facility] 2020-01-31 00:00:00 2020-01-31 00:00:00 Orders Only Doctor Unassigned, [place] [facility] 1.2.840.114 350.1.13.10 4.2.7.2.686 [id number] 009 [id number] [facility] 2020-01-30 13:10:00 2020-01-30 13:10:00 Outpatient R RUI [facility] [id number] [facility] 2020-01-26 00:00:00 2020-01-26 00:00:00 Dewayne [facility] 1.2840.114 350.1.13.10 4.2.7.2.686 [id number] 037 [id number] [facility] 2020-01-25 10:42:02 2020-01-25 13:26:36 Pmo Business Analyst Visit Pc, Adc Vascular Room 1 - Griffin Guevara [facility] 1.2840.114 350.1.13.10 4.2.7.2.686 [id number] 059 [id number] [facility] 2020-01-25 11:00:00 2020-01-25 11:00:00 Outpatient R [facility] [id number] [facility] 2020-01-25 00:00:00 2020-01-25 00:00:00 Orders Only Doctor Unassigned, [place] [facility] 1.2840.114 350.1.13.10 4.2.7.2.686 [id number] [id number] [facility] 2020-01-24 09:45:02 2020-01-24 23:59:00 Hospital Encounter Nic Ho [facility] 1.2840.114 350.1.13.10 4.2.7.2.686 [id number] [id number] [facility] 2020-01-24 10:59:05 2020-01-24 11:59:05 Laboratory Only Pc, Adc Echo Room 1 - Rafi Gaona [facility] 1.20.114 350.1.13.10 4.2.7.2.686 [id number] 059 [id number] [facility] 2020-01-24 11:00:00 2020-01-24 11:00:00 Outpatient R [facility] [id number] [facility] 2020-01-24 09:42:09 2020-01-24 09:57:09 Pmo Business Analyst Visit Pob, Adc Lab Main Rafi Gaona Jose [facility] Building 1..114 350.1.13.10 4.2.7.2.686 [id number] 353 [id number] [facility] 2020-01-23 00:00:00 2020-01-23 00:00:00 Prep For Surgery [facility] 1..114 350.1.13.10 4.2.7.2.686 [id number] 037 [id number] [facility] 2020-01-19 15:30:00 2020-01-19 15:30:00 Outpatient R NA LATHAM JR [facility] [id number] [facility] 2020-01-19 14:30:22 2020-01-19 14:45:22 Office Visit An Latham [facility] 1..114 350.1.13.10 4.2.7.2.686 [id number] [facility] 2020-01-19 00:00:00 2020-01-19 00:00:00 Telephone [facility] 1.2.114 350.1.13.10 4.2.7.2.686 [id number] 059 [id number] [facility] 2020-01-18 09:59:56 2020-01-18 23:59:00 Hospital Encounter Griffin Guevara Provider, Clc Cardiac 2, Clc Cardiac Proc Room [facility] ([facility]) 1.2.840.114 350.1.13.10 4.2.7.2.686 [id number] [facility] 2020-01-18 15:00:00 2020-01-18 15:00:00 Outpatient R GRIFFIN GUEVARA [facility] [id number] [facility] 2020-01-17 00:00:00 2020-01-17 00:00:00 Telephone Jack Moseley [facility] ([facility]) 1.2.840.114 350.1.13.10 4.2.7.2.686 [id number] [facility] 2020-01-16 12:52:00 2020-01-16 13:07:00 Pmo Business Analyst Visit Pob, Adc Lab Main Griffin Guevara [facility] Building 1.2.840.114 350.1.13.10 4.2.7.2.686 [id number] [facility] 2020-01-16 12:49:48 2020-01-16 13:04:48 Pmo Business Analyst Visit 1, Adc Lab Griffin Guevara [facility] 1.2.840.114 350.1.13.10 4.2.7.2.686 [id number] [facility] 2020-01-16 13:00:00 2020-01-16 13:00:00 Outpatient R GRIFFIN GUEVARA [facility] [id number] [facility] 2020-01-12 00:00:00 2020-01-12 00:00:00 Telephone Griffin Guevara [facility] 1.2840.114 350.1.13.10 4.2.7.2.686 [id number] 059 [id number] [facility] 2020-01-10 12:02:00 2020-01-10 12:17:00 Pmo Business Analyst Visit Pob, Adc Lab Main Griffin Guevara [facility] 1.2840.114 350.1.13.10 4.2.7.2.686 [id number] [facility] 2020-01-10 10:35:19 2020-01-10 11:43:59 Office Visit Griffin Guevara [facility] 1.20.114 350.1.13.10 4.2.7.2.686 [id number] 059 [id number] [facility] 2020-01-10 11:00:00 2020-01-10 11:00:00 Outpatient R GRIFFIN GUEVARA [facility] [id number] [facility] 2020-01-09 00:00:00 2020-01-09 00:00:00 Orders Only Doctor Unassigned, [place] [facility] 1.2840.114 350.1.13.10 4.2.7.2.686 [id number] [facility] 2020-01-03 00:00:00 2020-01-03 00:00:00 Telephone [employer] Crouch [facility] 1.2840.114 350.1.13.10 4.2.7.2.686 [id number] [facility] 2019-12-15 00:00:00 2019-12-15 00:00:00 Telephone Amena Veliz do [facility] 1.840.114 350.1.13.10 4.2.7.2.686 [id number] [facility] 2019-10-24 12:53:17 2019-10-24 20:27:02 Office Visit Rohit Marin [facility] 1.84.114 350.1.13.10 4.2.7.2.686 [id number] [facility] 2019-10-24 13:10:00 2019-10-24 13:10:00 Outpatient R RUI [facility] [id number] [facility] 2019-10-20 00:00:00 2019-10-20 00:00:00 Telephone Amena Veliz do [facility] 1.114 350.1.13.10 4.2.7.2.686 [id number] [facility] 2019-10-12 12:56:03 2019-10-12 13:44:36 Office Visit Franki [facility] 1..114 350.1.13.10 4.2.7.2.686 [id number] [facility] 2019-10-12 13:00:00 2019-10-12 13:00:00 Outpatient R FRANKI [facility] [id number] [facility] 2019-09-29 00:00:00 2019-09-29 00:00:00 Telephone Amena eVliz do [facility] 1.114 350.1.13.10 4.2.7.2.686 [id number] [facility] 2019-09-28 00:00:00 2019-09-28 00:00:00 Telephone Rohit Marin [facility] 1.84.114 350.1.13.10 4.2.7.2.686 [id number] [facility] 2019-09-27 00:00:00 2019-09-27 00:00:00 Telephone Amena Veliz do [facility] 1..114 350.1.13.10 4.2.7.2.686 [id number] [facility] 2019-09-22 10:20:00 2019-09-22 10:20:00 Outpatient R GRUPO CROUCH [facility] [id number] [facility] 2019-09-22 06:42:14 2019-09-22 07:02:14 Telemedici ne Visit Amena Veliz do, Muhammad A [facility] 1..114 350.1.13.10 4.2.7.2.686 [id number] [facility] 2019-09-14 10:19:00 2019-09-14 10:34:00 Pmo Business Analyst Visit 1, Adc Lab Matt Flores [facility] 1..114 350.1.13.10 4.2.7.2.686 [id number] [facility] 2019-09-14 10:15:00 2019-09-14 10:15:00 Outpatient MATT LARA [facility] [id number] [facility] 2019-09-14 00:00:00 2019-09-14 00:00:00 Orders Only Doctor Unassigned, [place] [facility] 1.0.114 350.1.13.10 4.2.7.2.686 [id number] [id number] [facility] 2019-08-30 00:00:00 2019-08-30 00:00:00 Telephone Jess Doan [facility] Professio [facility] Building 1..114 350.1.13.10 4.2.7.2.686 [id number] [facility] 2019-08-12 13:20:00 2019-08-12 13:20:00 Outpatient R ISAAC THOMPSON [facility] [id number] [facility] 2019-08-12 08:11:26 2019-08-12 08:21:26 Telemedici ne Visit Isaac Thompson [facility] 1.840.114 350.1.13.10 4.2.7.2.686 [id number] 028 [id number] [facility] 2019-07-16 00:00:00 2019-07-16 00:00:00 Case Management Rafi Gaona [facility] 1.0.114 350.1.13.10 4.2.7.2.686 [id number] [facility] 2019-07-08 00:00:00 2019-07-08 00:00:00 Telephone Franki [facility] Building 1.2840.114 350.1.13.10 4.2.7.2.686 [id number] [facility] 2019-07-08 00:00:00 2019-07-08 00:00:00 Telephone Franki [facility] Building 1.2.840.114 350.1.13.10 4.2.7.2.686 [id number] 220 [id number] [facility] 2019-07-04 00:00:00 2019-07-04 00:00:00 Refill Franki [facility] Building 1.2840.114 350.1.13.10 4.2.7.2.686 [id number] 220 [id number] [facility] 2019-06-09 00:00:00 2019-06-09 00:00:00 Telephone Franki [facility] 1.0.114 350.1.13.10 4.2.7.2.686 [id number] 220 [id number] [facility] 2019-06-09 00:00:00 2019-06-09 00:00:00 Refill Jackie Chan [facility] Professio nal Building 1.2.840.114 350.1.13.10 4.2.7.2.686 [id number] [facility] 2019-06-07 00:00:00 2019-06-07 00:00:00 Refill [facility] 1.2840.114 350.1.13.10 4.2.7.2.686 [id number] [facility] 2019-06-06 00:00:00 2019-06-06 00:00:00 Refill Jm Dowell [facility] Building 1.0.114 350.1.13.10 4.2.7.2.686 [id number] [facility] 2019-05-13 00:00:00 2019-05-13 00:00:00 Telephone [facility] 1.840.114 350.1.13.10 4.2.7.2.686 [id number] [facility] 2019-05-09 10:30:08 2019-05-09 11:48:04 Office Visit Rohit Marin [facility] 1.2840.114 350.1.13.10 4.2.7.2.686 [id number] [facility] 2019-05-04 12:48:24 2019-05-04 13:25:32 Office Visit Kendall Levy [facility] 1.840.114 350.1.13.10 4.2.7.2.686 [id number] [facility] 2019-04-22 00:00:00 2019-04-22 00:00:00 Telephone Kendall Levy [facility] 1.2.840.114 350.1.13.10 4.2.7.2.686 [id number] 028 [id number] [facility] 2019-04-21 00:00:00 2019-04-21 00:00:00 Telephone Kendall Levy [facility] 1.2.840.114 350.1.13.10 4.2.7.2.686 [id number] 028 [id number] [facility] 2019-04-20 08:47:37 2019-04-20 13:06:01 Office Visit Kendall Levy [facility] 1.2.840.114 350.1.13.10 4.2.7.2.686 [id number] 028 [id number] [facility] 2019-04-18 00:00:00 2019-04-18 00:00:00 Patient Secure Msg [facility] 1.20.114 350.1.13.10 4.2.7.2.686 [id number] 220 [id number] [facility] 2019-04-13 15:53:42 2019-04-13 16:54:00 Office Visit Franki [facility] 1.20.114 350.1.13.10 4.2.7.2.686 [id number] 220 [id number] [facility] 2019-04-13 15:12:14 2019-04-13 15:27:14 Pmo Business Analyst Visit Pob, Adc Lab Main [facility] 1.20.114 350.1.13.10 4.2.7.2.686 [id number] [facility] 2019-04-13 00:00:00 2019-04-13 00:00:00 Orders Only Doctor Unassigned, [place] [facility] 1.2.840.114 350.1.13.10 4.2.7.2.686 [id number] [facility] 2019-03-28 00:00:00 2019-03-28 00:00:00 Patient Secure Jess Carrion [facility] Javed Sinio [facility] Building 1.2.840.114 350.1.13.10 4.2.7.2.686 [id number] 220 [id number] [facility] 2019-02-28 12:38:42 2019-02-28 23:59:00 Outpatient R JESS DOAN [facility] [id number] [facility] 2018-12-17 00:00:00 2018-12-17 00:00:00 Telephone Keila Zelaya [facility] [place] 1.2.840.114 350.1.13.10 4.2.7.2.686 [id number] 072 [id number] [facility] 2018-12-16 00:00:00 2018-12-16 00:00:00 Telephone Broderick Reynolds [facility] [place] 1.2.840.114 350.1.13.10 4.2.7.2.686 [id number] 072 [id number] [facility] 2018-12-15 00:00:00 2018-12-15 00:00:00 Case Management Rafi Gaona [facility]PEC [facility] 1.2.840.114 350.1.13.10 4.2.7.2.686 [id number] [facility] 2018-12-15 00:00:00 2018-12-15 00:00:00 Telephone Kaitlin Blank [facility] [place] 1.2.840.114 350.1.13.10 4.2.7.2.686 [id number] 072 [id number] [facility] 2018-12-14 00:00:00 2018-12-14 00:00:00 Prep For Surgery [facility] SPECIALTY C[facility] [place] [facility] [place] 1.2.840.114 350.1.13.10 4.2.7.2.686 [id number] 072 [id number] [facility] 2018-12-14 00:00:00 2018-12-14 00:00:00 Case Management [facility] [place] 1.2.840.114 350.1.13.10 4.2.7.2.686 [id number] 050 [id number] [facility] 2018-12-14 00:00:00 2018-12-14 00:00:00 Telephone Gr[employer] Crouch [facility] M[facility]PEC [facility] 1.840.114 350.1.13.10 4.2.7.2.686 [id number] [facility] 2018-12-10 00:00:00 2018-12-10 00:00:00 Telephone [facility] [place] 1.2.840.114 350.1.13.10 4.2.7.2.686 [id number] [id number] [facility] 2018-12-09 13:06:00 2018-12-09 17:29:00 Hospital Encounter Broderick Reynolds [facility] ([facility] 1.840.114 350.1.13.10 4.2.7.2.686 [id number] [facility] 2018-12-09 00:00:00 2018-12-09 00:00:00 Orders Only Doctor Unassigned, [place] [facility] 1.2.840.114 350.1.13.10 4.2.7.2.686 [id number] [facility] 2018-12-01 00:00:00 2018-12-01 00:00:00 Amena Wayne do [facility]PEC [facility] 1.840.114 350.1.13.10 4.2.7.2.686 [id number] [facility] 2018-12-01 00:00:00 2018-12-01 00:00:00 Telephone [facility] Building 1.2840.114 350.1.13.10 4.2.7.2.686 [id number] [facility] 2018-12-01 00:00:00 2018-12-01 00:00:00 Refill DoanJess [facility] Building 1..114 350.1.13.10 4.2.7.2.686 [id number] 220 [id number] [facility] 2018-11-28 00:00:00 2018-11-28 00:00:00 Refill Amena Veliz do [facility]PEC [facility] 1.0.114 350.1.13.10 4.2.7.2.686 [id number] [facility] 2018-11-08 08:44:32 2018-11-08 08:59:32 Office Visit Devaughn Xie [facility] 1.840.114 350.1.13.10 4.2.7.2.686 [id number] 144 [id number] [facility] 2018-11-08 00:00:00 2018-11-08 00:00:00 Telephone [employer] [facility] 1.20.114 350.1.13.10 4.2.7.2.686 [id number] [facility] 2018-11-08 00:00:00 2018-11-08 00:00:00 Telephone FrankiJess [facility] 1.2.840.114 350.1.13.10 4.2.7.2.686 [id number] 220 [id number] [facility] 2018-11-05 00:00:00 2018-11-05 00:00:00 Telephone [employer] [facility] 1.2.840.114 350.1.13.10 4.2.7.2.686 [id number] 189 [id number] [facility] Results Test Description Test Time Test Comments Results Result Co mments Source [facility] with [id number] 22:59:24* Test Item Value Reference Range Interpretation Comme nts WBC (test code = 6690-2) 6.33 4.30-11.10 RBC (test code = 789-8) 4.91 3.93-5.25 HGB (test code = 718-7) 15.6 g/dL 11.6-15.0 H HCT (test code = 4544-3) 47.8 % 35.7-45.2 H MCV (test code = 787-2) 97.4 fL 80.6-95.5 H MCH (test code = 785-6) 31.8 pg 25.9-32.8 MCHC (test code = 786-4) 32.6 g/dL 31.6-35.1 RDW-SD (test code = 68135-8) 47.9 fL 39.0-49.9 RDW-CV (test code = 788-0) 13.4 % 12.0-15.5 PLT (test code = 777-3) 221 166-358 MPV (test code = 08651-3) 9.7 fL 9.5-12.9 IPF % (test code = 5443524894) 1.3 % 1.3-7.7 Platelet count measured by fluorescence method. NRBC/100 WBC (test code = 2064607421) 0.0 0.0-10.0 NRBC x10^3 (test code = 5581549400) See_Comment [Automated [employer]] The system which generated this result transmitted reference range: 10*3/?L. The reference range was not used to interpret this result as normal/abnormal. GRAN MAT (NEUT) % (test code = 770-8) 56.8 % IMM GRAN % (test code = 1571480787) 0.50 % LYMPH % (test code = 736-9) 31.6 % MONO % (test code = 5905-5) 9.8 % EOS % (test code = 713-8) 0.8 % BASO % (test code = 706-2) 0.5 % GRAN MAT x10^3(ANC) (test code = 3459883222) 3.60 10*3/uL 1.88-7.09 IMM GRAN x10^3 (test code = 9225428263) 0.03 10*3/uL 0.00-0.06 LYMPH x10^3 (test code = 731-0) 2.00 10*3/uL 1.32-3.29 MONO x10^3 (test code = 742-7) 0.62 10*3/uL 0.33-0.92 EOS x10^3 (test code = 711-2) 0.05 10*3/uL 0.03-0.39 BASO x10^3 (test code = 704-7) 0.03 10*3/uL 0.01-0.07 Lab Interpretation (test code = 85548-4) Abnormal [facility] CenterMagnesium [id number] 21:39:59* Test Item Value Reference Range Interpretation Comme nts MAGNESIUM (test code = 1234655051) 1.7 mg/dL 1.7-2.4 Lab Interpretation (test cod e = 82616-1) Normal [facility] (NA, K, CL, CO2, Glucose, BUN, Creatinine, CA)2024-05-03 21:39:38* Test Item Value Reference Range Interpretation Comme nts NA (test code = 9282757509) 140 mmol/L 135-145 K (test code = 1071444880) 4.4 mmol/L 3.5-5.0 CL (test code = 8439101619) 107 mmol/L 98-108 CO2 TOTAL (test code = 9720398093) 27 mmol/L 23-31 AGAP (test code = 1767816279) 6 2-16 BUN (test code = 4587155731) 22 mg/dL 7-23 GLUCOSE (test code = 3664180271) 143 mg/dL 70-110 H CREATININE (test code = 2160-0) 0.68 mg/dL 0.50-1.04 CALCIUM (test code = 2799484181) 9.7 mg/dL 8.6-10.6 eGFR (test code = 32364-6) 99.2 mL/min/1.73m2 CKD-EPI eGFR (2020). Assuming creatinine has been stable day-to-day for at least three months, the eGFR indicates Category G1 (>= 90 mL/min/1.73 m2) Lab Interpretation (test code = 22745-8) Abnormal [facility] CenterPhosphorus [id number] 21:39:17* Test Item Value Reference Range Interpretation Comme nts PHOSPHORUS (test code = 8129772187) 3.1 mg/dL 2.5-5.0 Lab Interpretation (test cod e = 74265-1) Normal [facility] CenterDIABETES TESTING [id number] 15:58:54 Ordered by an unspecified provider.[facility] CenterPOCT Hemoglobin A1C [id number] 17:01:00* Test Item Value Reference Range Interpretation Comme nts POCT HBA1C (test code = 4548-4) 9.9 % 4-6 A Lab Interpretation (test cod e = 95020-8) Abnormal [facility] CenterCT HEAD WO [id number] 21:20:49CT HEAD WO CONTRAST HISTORY: Female 58 years Memory loss COMPARISON: MRI brain dated 07/16/2021 TECHNIQUE: Routine CT head without contrast FINDINGS: The ventricles and cerebral sulci are unchanged incaliber andconfiguration. Ex vacuo dilatation of the right occipital temporal horn isredemonstrated. No hydrocephalus, midline shift or pathological extra-axialfluid collection is present. The basal cisterns are unremarkable. No acute intracranial hemorrhage or mass effect is present.Encephalomalacia in the right temporal pole is unchanged. The redmond- whitematter differentiation is otherwise preserved. Patchy hypoattenuation inthe biconvexity deep and subcortical white matter, grossly correspondstopreviously seen signal alteration on the prior MRI and probably representssmall vessel ischemic changes and gliosis related to nonspecific priorinsult. The calvarium and skull base are unremarkable. The mastoid air cells andvisualized paranasal air sinuses are clear.[facility] CenterXR CHEST 1 [id number] 03:51:14ORDERING PHYSICIAN: Dean ROSS ?DILIP HISTORY: Chest Pain ? COMPARISON: 09/23/2023 FINDINGS: Single frontal view of the chest. Heart is normal in size. ?There is no pulmonary edema. There are no focalareas of consolidation. There is no pneumothorax. ?There are no pleuraleffusions. Osseous structures are unremarkable. ? Please note that chest radiography is not a sensitive modality for thedetection of masses.[facility] CenterPOCT GLUCOSE (AUTOMATED)2023-11-24 03:29:15* Test Item Value Reference Range Interpretation Comme nts POCT GLU (test code = 2436474632) 316 mg/dL 70-110 H Lab Interpretation (test cod e = 42614-3) Abnormal [facility] CenterTroponin [id number] 03:15:32* Test Item Value Reference Range Interpretation Comme nts TROPONIN I (test code = 3422231668) 0.004 ng/mL <=0.034 AMELIA (test code = AMELIA) Reference (Normal) Range (defined by the 99th percentile reference limit): <= 0.034 ng/mL Note: Cardiac troponin begins to rise 3-4 hours after the onset of ischemia. Repeat in 4-6 hours if the sample was drawn within 3-4 hours of the onset of the symptom and found normal. Diagnosis of myocardial injury is made with acute changes in cTn concentrations with at least one serial sample above the 99th percentile upper reference limit (URL), taken together with the patient's clinical presentation. Biotin has been reported to cause a negative bias, interpret results relative to patient's use of biotin. Lab Interpretation (test code = 92077-9) Normal [facility] CenterAcute Care Venous Blood [id number] 03:00:54 * Test Item Value Reference Range Interpretation Comme nts PH (test code = 4908599947) 7.41 7.32-7.42 PCO2 TESSA (test code = 3994252216) 39 41-51 L PO2 TESSA (test code = 9193803031) 50 25-40 H HCO3 TESSA (test code = 0623921169) 24 24-28 AC VBE(BEAKER) (test code = 4089978847) -0.1 mEq/L Lab Interpretation (test cod e = 64065-0) Abnormal [facility] CenterPOCT GLUCOSE (AUTOMATED)2023-11-24 02:59:48* Test Item Value Reference Range Interpretation Comme [facility] POCT GLU (test code = 6630133015) 346 mg/dL 70-110 H Lab Interpretation (test cod e = 67017-6) Abnormal [facility]. Metabolic Panel (69104)2023-11-24 02:50:52* Test Item Value Reference Range Interpretation Comme [facility] NA (test code = 8860137343) 132 mmol/L 135-145 L K (test code = 8020432686) 3.9 mmol/L 3.5-5.0 CL (test code = 4189877935) 99 mmol/L 98-108 CO2 TOTAL (test code = 3438599446) 26 mmol/L 23-31 AGAP (test code = 5236100419) 7 2-16 BUN (test code = 1921827583) 25 mg/dL 7-23 H GLUCOSE (test code = 4532172711) 390 mg/dL 70-110 H CREATININE (test code = 2160-0) 1.04 mg/dL 0.50-1.04 TOTAL BILI (test code = 2612547902) 0.7 mg/dL 0.1-1.1 CALCIUM (test code = 1581491042) 9.6 mg/dL 8.6-10.6 T PROTEIN (test code = 7009134147) 7.0 g/dL 6.3-8.2 ALBUMIN (test code = 3285406172) 3.8 g/dL 3.5-5.0 ALK PHOS (test code = 5532794077) 69 U/L 34-122 ALTv (test code = 1742-6) 21 U/L 5-35 AST(SGOT) (test code = 9248563315) 24 U/L 13-40 eGFR (test code = 78308-0) 61.7 mL/min/1.73m2 CKD-EPI eGFR (2020). Assuming creatinine has been stable day-to-day for at least three months, the eGFR indicates Category G2 (60 - 89 mL/min/1.73 m2) Lab Interpretation (test code = 95684-7) Abnormal [facility] with [id number] 02:33:51* Test Item Value Reference Range Interpretation Comme nts WBC (test code = 6690-2) 7.34 4.30-11.10 RBC (test code = 789-8) 4.30 3.93-5.25 HGB (test code = 718-7) 13.7 g/dL 11.6-15.0 HCT (test code = 4544-3) 41.5 % 35.7-45.2 MCV (test code = 787-2) 96.5 fL 80.6-95.5 H MCH (test code = 785-6) 31.9 pg 25.9-32.8 MCHC (test code = 786-4) 33.0 g/dL 31.6-35.1 RDW-SD (test code = 31877-4) 49.3 fL 39.0-49.9 RDW-CV (test code = 788-0) 14.0 % 12.0-15.5 PLT (test code = 777-3) 182 166-358 MPV (test code = 93136-9) 9.2 fL 9.5-12.9 L NRBC/100 WBC (test code = 1625611592) 0.0 0.0-10.0 NRBC x10^3 (test code = 3863127098) See_Comment [Automated mess[employer] ge] The system which generated this result transmitted reference range: 10*3/?L. The reference range was not used to interpret this result as normal/abnormal. GRAN MAT (NEUT) % (test code = 770-8) 56.6 % IMM GRAN % (test code = 2723171214) 0.40 % LYMPH % (test code = 736-9) 33.0 % MONO % (test code = 5905-5) 9.4 % EOS % (test code = 713-8) 0.3 % BASO % (test code = 706-2) 0.3 % GRAN MAT x10^3(ANC) (test code = 2465742262) 4.16 10*3/uL 1.88-7.09 IMM GRAN x10^3 (test code = 1568215086) 0.03 10*3/uL 0.00-0.06 LYMPH x10^3 (test code = 731-0) 2.42 10*3/uL 1.32-3.29 MONO x10^3 (test code = 742-7) 0.69 10*3/uL 0.33-0.92 EOS x10^3 (test code = 711-2) 0.03-0.39 L BASO x10^3 (test code = 704-7) 0.01-0.07 Lab Interpretation (test code = 74354-5) Abnormal [facility] GLUCOSE (AUTOMATED)2023-11-24 01:16:17* Test Item Value Reference Range Interpretation Comme [facility] POCT GLU (test code = 8311115190) 351 mg/dL 70-110 H Lab Interpretation (test cod e = 17269-7) Abnormal [facility] Hemoglobin A1C [id number] 16:59:00* Test Item Value Reference Range Interpretation Comme [facility] POCT HBA1C (test code = 4548-4) 9.9 % 4-6 A Lab Interpretation (test cod e = 78057-6) Abnormal [facility] ULTRASOUND BREAST COMPLETE [id number] 21:44:11Examination:BI DIAGNOSTIC TOMOSYNTHESIS BILATERALBI ULTRASOUND BREAST COMPLETE RIGHT History:Patient is 58 year old and is seen for: ?Screening/right breast pain. Comparisons: 06/06/2020 BI SCREENINGMAMMOGRAM BILATERAL, 02/02/2017 DIGITAL MAMMOGRAM, SCREENING, 01/12/2012 DIGITAL MAMMOGRAM, SCREENING, and 06/22/2006 MAMMARY SCREENING EXAM Findings:There are scattered areas of fibroglandular density. BI DIAGNOSTIC TOMOSYNTHESIS BILATERALThere is no evidence of suspicious masses, calcifications, or other abnormal findings. Postoperative changes are noted in the right breast; benign. BI ULTRASOUND BREAST COMPLETE RIGHTSurvey ultrasound of the right breast and axilla was performed. No sonographic correlate is noted for the patient's history of nonspecific discomfort along the lateral right breast. The right breast and right axillary ultrasound is unremarkable. Impression: There is no sonographic evidence of malignancy. Recommendation:Annual mammographic follow-up - Bilateral Clinical follow-up is also recommended, and further management of clinical findings should be based on the results of clinical evaluation. BI-RADS Category:Both 2 - [facility]ignUnVal[facility]villeBI DIAGNOSTIC TOMOSYNTHESIS [id number] 21:44:11Examination:BI DIAGNOSTIC TOMOSYNTHESIS BILATERALBI ULTRASOUND BREAST COMPLETE RIGHT History:Patient is 58 year old and is seen for: ?Screening/right breast pain. Comparisons: 06/06/2020 BI SCREENINGMAMMOGRAM BILATERAL, 02/02/2017 DIGITAL MAMMOGRAM, SCREENING, 01/12/2012 DIGITAL MAMMOGRAM, SCREENING, and 06/22/2006 MAMMARY SCREENING EXAM Findings:There are scattered areas of fibroglandular density. BI DIAGNOSTIC TOMOSYNTHESIS BILATERALThere is no evidence of suspicious masses, calcifications, or other abnormal findings. Postoperative changes are noted in the right breast; benign. BI ULTRASOUND BREAST COMPLETE RIGHTSurvey ultrasound of the right breast and axilla was performed. No sonographic correlate is noted for the patient's history of nonspecific discomfort along the lateral right jeanie ast. The right breast and right axillary ultrasound is unremarkable. Impression: There is no sonographic evidence of malignancy. Recommendation:Annual mammographic follow-up - Bilateral Clinical follow-up is also recommended, and further management of clinical findings should be based on the results of clinical evaluation. BI-RADS Category:Both 2 - BenignUnValley [facility] [place]villePOCT GLUCOSE (AUTOMATED)2023-09-23 17:24:46* Test Item Value Reference Range Interpretation Comme nts POCT GLU (test code = 3335807889) 265 mg/dL 70-110 H Lab Interpretation (test cod e = 20460-2) Abnormal [facility] CenterTroponin [id number] 16:38:08* Test Item Value Reference Range Interpretation Comme nts TROPONIN I (test code = 1022201104) 0.005 ng/mL <=0.034 AMELIA (test code = AMELIA) Reference (Normal) Range (defined by the 99th percentile reference limit): <= 0.034 ng/mL Note: Cardiac troponin begins to rise 3-4 hours after the onset of ischemia. Repeat in 4-6 hours if the sample was drawn within 3-4 hours of the onset of the symptom and found normal. Diagnosis of myocardial injury is made with acute changes in cTn concentrations with at least one serial sample above the 99th percentile upper reference limit (URL), taken together with the patient's clinical presentation. Biotin has been reported to cause a negative bias, interpret results relative to patient's use of biotin. Lab Interpretation (test code = 66223-1) Normal [facility] CenterN-Terminal Zme-Ewn8620-02-26 16:35:28* Test Item Value Reference Range Interpretation Comme nts NT-proBNP (test code = 53856-8) 335 pg/mL <=125 AMELIA (test code = AMELIA) Result Indeterminate-Consid er causes of NT-proBNP elevation other than Heart failure such as acute coronary syndrome, pulmonary embolism, pulmonary hypertension, sepsis, stroke, and renal dysfunction. Lab Interpretation (test code = 28588-7) Abnormal [facility] CenterMagnesium2024-06-26 16:28:08* Test Item Value Reference Range Interpretation Comme nts MAGNESIUM (test code = 2763032718) 1.8 mg/dL 1.7-2.4 Lab Interpretation (test cod e = 35920-9) Normal [facility] CenterComp. Metabolic Panel (65907)2023-09-23 16:27:47* Test Item Value Reference Range Interpretation Comme nts NA (test code = 6534756068) 133 mmol/L 135-145 L K (test code = 0135187273) 3.8 mmol/L 3.5-5.0 CL (test code = 8292721766) 100 mmol/L 98-108 CO2 TOTAL (test code = 8194014346) 22 mmol/L 23-31 L AGAP (test code = 4942852455) 11 2-16 BUN (test code = 2996292622) 11 mg/dL 7-23 GLUCOSE (test code = 3293285694) 344 mg/dL 70-110 H CREATININE (test code = 2160-0) 0.64 mg/dL 0.50-1.04 TOTAL BILI (test code = 3642559809) 0.9 mg/dL 0.1-1.1 CALCIUM (test code = 1818772233) 9.8 mg/dL 8.6-10.6 T PROTEIN (test code = 8293368091) 7.3 g/dL 6.3-8.2 ALBUMIN (test code = 7106313818) 4.1 g/dL 3.5-5.0 ALK PHOS (test code = 4150456443) 104 U/L 34-122 ALTv (test code = 1742-6) 22 U/L 5-35 AST(SGOT) (test code = 4675814316) 35 U/L 13-40 eGFR (test code = 12782-5) 101.3 mL/min/1.73m2 CKD-EPI eGFR (2020). Assuming creatinine has been stable day-to-day for at least three months, the eGFR indicates Category G1 (>= 90 mL/min/1.73 m2) Lab Interpretation (test code = 78157-2) Abnormal [facility] with [id number] 16:23:27* Test Item Value Reference Range Interpretation Comme nts WBC (test code = 6690-2) 6.58 4.30-11.10 RBC (test code = 789-8) 4.80 3.93-5.25 HGB (test code = 718-7) 14.6 g/dL 11.6-15.0 HCT (test code = 4544-3) 45.3 % 35.7-45.2 H MCV (test code = 787-2) 94.4 fL 80.6-95.5 MCH (test code = 785-6) 30.4 pg 25.9-32.8 MCHC (test code = 786-4) 32.2 g/dL 31.6-35.1 RDW-SD (test code = 27334-5) 46.0 fL 39.0-49.9 RDW-CV (test code = 788-0) 13.3 % 12.0-15.5 PLT (test code = 777-3) 195 166-358 MPV (test code = 01016-9) 9.0 fL 9.5-12.9 L NRBC/100 WBC (test code = 8686713108) 0.0 0.0-10.0 NRBC x10^3 (test code = 1818173193) See_Comment [Automated [employer]] The system which generated this result transmitted reference range: 10*3/?L. The reference range was not used to interpret this result as normal/abnormal. GRAN MAT (NEUT) % (test code = 770-8) 61.7 % IMM GRAN % (test code = 2557003511) 0.30 % LYMPH % (test code = 736-9) 25.8 % MONO % (test code = 5905-5) 10.6 % EOS % (test code = 713-8) 1.1 % BASO % (test code = 706-2) 0.5 % GRAN MAT x10^3(ANC) (test code = 5706252690) 4.06 10*3/uL 1.88-7.09 IMM GRAN x10^3 (test code = 7094808347) 0.00-0.06 LYMPH x10^3 (test code = 731-0) 1.70 10*3/uL 1.32-3.29 MONO x10^3 (test code = 742-7) 0.70 10*3/uL 0.33-0.92 EOS x10^3 (test code = 711-2) 0.07 10*3/uL 0.03-0.39 BASO x10^3 (test code = 704-7) 0.03 10*3/uL 0.01-0.07 Lab Interpretation (test code = 61585-9) Abnormal [facility] CenterXR CHEST 1 [id number] 15:23:47HISTORY: Dizziness. TECHNIQUE: Portable AP view of the chest is obtained. Comparison is madewith 08/08/2022 study. FINDINGS: Focal area of fibrosis and calcified granuloma in the right upperlung noted. Smaller calcified granuloma suspected in the left upper lung.Acute pneumonia. No pneumothorax or pleural effusion or pulmonarycongestion detected. Cardiac size is within upper normal limits. Internal note of extensive thoracic surgical changes with metallic hardwareover the midline, right and leftpara midline regions noted. Surgical clipsare also seen in the right upper abdomen. CONCLUSIONS: Nosigns of acute cardiopulmonary disease.[facility] CenterPOCT Urinalysis W Specific Kennard 2023-09-23 14:21:00* Test Item Value Reference Range Interpretation Comme nts POCT U SP GRAV (test code = 3255) 1..015 1.005-1.025 POCT PH U (test code = 3254) 5 mg/dl 5-8 POCT U LEUK EST (test code = 3263) ++ Negative - Negative POCT U NIT (test code = 3262) POSITIVE Negative - Negative POCT U PROT (test code = 3259) TRACE Negative - Negative POCT U GLU (test code = 3256) 1000 Negative - Negative POCT U KETONE (test code = 3258) + (SMALL) Negative - Negative POCT U UROBILI (test code = 3260) NORMAL 0.2-1 POCT U BILI (test code = 3261) NEGATIVE Negative - Negative POCT U BLD (test code = 3257) ABOUT 50 Negative - Negative POCT U COLOR (test code = 3266) DARK YELLOW POCT U APPEAR (test code = 3267) CLOUDY AMELIA (test code = AMELIA) accurate developme nt and interpretation of all internal controls Lab Interpretation (test code = 89062-2) Abnormal [facility] CenterCT ABDOMEN PELVIS WO [id number] 03:09:46ABDOMEN AND PELVIS CT WITHOUT ?INTRAVENOUS CONTRAST. CLINICAL INDICATIONS: ? Epigastric pain Ordering Physician: JUSTINA MELENDEZ; JUSTINA MELENDEZ TECHNIQUE: ?Axial computed tomographic images of the abdomen and pelviswere without administration of nonionic intravenous contrast. The CTImaging data was obtained utilizing radiation dose parameters in accordancewith ALARA (As Low As Reasonably Achievable) Quality of Study: Good COMPARISON: ?08/08/2022 FINDINGS: ? Prior median sternotomy and anterior chest wall reconstruction withplacement of fixation hardware. Multivessel coronary artery calcification. Heart size is normal. Nopericardial effusion. Subsegmental atelectasis noted in the posterior medial lower lobes. Thereis a calcified granuloma in the central left lower lobe. Additionalcalcified granuloma noted posteriorly in the left lower lobe. Small amount of gas in the distal esophagus. Gas and fluid noted within the stomach. The duodenum and pancreas appearnormal. Adrenal glands appear normal. There is advanced atrophy of the alutiiq kidneys. Multiple granulomas in thespleen. There are few granulomas within the liver. No hepatic mass identified.Gallbladder surgically absent. Mild central dilatation of the intrahepaticducts likely represents physiologic changes of prior cholecys tectomy. No inguinal lymphadenopathy. Urinary bladder is mildly distended. The uterus and ovaries appear normalin size for patient's age. There is mild to moderate stool within the rectosigmoid colon. There ismoderate amount stool within the left colon, transverse colon and rightcolon. No evidence of mechanical small bowel obstruction. There are postoperative changes of right iliac fossa renal transplant. Nostone or hydronephrosis of the right renal transplant. There is anadditional, atrophic left pelvic renal transplant. There are calcifiedmasslike densities in the lower pelvis bilaterally which may representsequela of previously failed orthotopic kidney transplants. No evidence ofmechanical small bowel obstruction. There is diffuse calcificatherosclerosis involving the encarnacion of the celiac artery, SMA, renalarteries and CHACHA. Grade 1 anterolisthesis of L4 on L5. No compression fracture.No suspiciouslytic or blastic lesions. Vacuum disc phenomenon at L4-5.[facility] CenterGlycosylated Hemoglobin (A1C)2023-06-08 19:04:38* Test Item Value Reference Range Interpretation Comme nts HGB A1C (test code = 4548-4) 10.3 % 4.0-5.7 H AMELIA (test code = AMELIA) Reference RangesNormal: <5.7%Prediabetes: 5.7 - 6.4%Diabetes: > 6.5% Lab Interpretation (test code = 80560-8) Abnormal [facility] CenterGlycosylated Hemoglobin (A1C)2023-06-08 19:04:38* Test Item Value Reference Range Interpretation Comme nts HGB A1C (test code = 4548-4) 10.3 % 4.0-5.7 H AMELIA (test code = AMELIA) Reference RangesNormal: <5.7%Prediabetes: 5.7 - 6.4%Diabetes: > 6.5% Lab Interpretation (test code = 50934-6) Abnormal [facility] CenterThyroid Stimulating [id number] 18:15:25 * Test Item Value Reference Range Interpretation Comme nts TSH (test code = 4819254176) 0.71 0.45-4.70 Lab Interpretation (test cod e = 10654-8) Normal [facility] CenterThyroid Stimulating [id number] 18:15:25 * Test Item Value Reference Range Interpretation Comme nts TSH (test code = 3619954634) 0.71 0.45-4.70 Lab Interpretation (test cod e = 23865-2) Normal [facility] CenterFree [id number] 18:02:24* Test Item Value Reference Range Interpretation Comme nts FREE T4 (test code = 4964466158) 1.17 0.78-2.20 Lab Interpretation (test cod e = 46575-7) [facility] [id number] 18:02:24* Test Item Value Reference Range Interpretation Comme nts FREE T4 (test code = 8009503449) 1.17 0.78-2.20 Lab Interpretation (test cod e = 15250-1) [facility] [id number] 18:02:08* Test Item Value Reference Range Interpretation Comme nts FREE T3 (test code = 0445142765) 3.74 pg/mL 2.77-5.27 Lab Interpretation (test cod e = 67028-6) [facility] [id number] 18:02:08* Test Item Value Reference Range Interpretation Comme nts FREE T3 (test code = 9918798247) 3.74 pg/mL 2.77-5.27 Lab Interpretation (test cod e = 90149-3) Normal [facility] CenterLipid Panel (01749)(Total Cholesterol, Triglycerides, HDL)2023-06-08 17:46:23* Test Item Value Reference Range Interpretation Comme nts CHOL (test code = 5015498444) 178 mg/dL 120-200 HDL (test code = 7203349920) 96 mg/dL >=50 HDLC RATIO (test code = 9656373146) 1.9 <=4.5 TRIG (test code = 2353394397) 134 mg/dL 30-170 LDL CHOL (test code = 87938-7) 55 mg/dL <=160 VLDL (test code = 8965039727) 27 mg/dL 5-60 Lab Interpretation (test cod e = 05736-4) Normal [facility] CenterLipid Panel (53665)(Total Cholesterol, Triglycerides, HDL)2023-06-08 17:46:23* Test Item Value Reference Range Interpretation Comme nts CHOL (test code = 2139305891) 178 mg/dL 120-200 HDL (test code = 3509765285) 96 mg/dL >=50 HDLC RATIO (test code = 3070168766) 1.9 <=4.5 TRIG (test code = 2105225355) 134 mg/dL 30-170 LDL CHOL (test code = 60029-2) 55 mg/dL <=160 VLDL (test code = 3401690517) 27 mg/dL 5-60 Lab Interpretation (test cod e = 73184-0) Normal [facility] Metabolic Panel (00028)2023-06-08 17:45:42* Test Item Value Reference Range Interpretation Comme nts NA (test code = 0087275091) 137 mmol/L 135-145 K (test code = 2025545806) 4.7 mmol/L 3.5-5.0 CL (test code = 3285611845) 107 mmol/L 98-108 CO2 TOTAL (test code = 3768180103) 25 mmol/L 23-31 AGAP (test code = 6278157894) 5 2-16 BUN (test code = 9340380101) 17 mg/dL 7-23 GLUCOSE (test code = 8881273183) 231 mg/dL 70-110 H CREATININE (test code = 2160-0) 0.71 mg/dL 0.50-1.04 TOTAL BILI (test code = 9309174251) 0.7 mg/dL 0.1-1.1 CALCIUM (test code = 3970616091) 9.9 mg/dL 8.6-10.6 T PROTEIN (test code = 6932622298) 7.2 g/dL 6.3-8.2 ALBUMIN (test code = 2234167801) 3.9 g/dL 3.5-5.0 ALK PHOS (test code = 1517941961) 89 U/L 34-122 ALTv (test code = 1742-6) 17 U/L 5-35 AST(SGOT) (test code = 6050823224) 23 U/L 13-40 eGFR (test code = 42746-9) 97.5 mL/min/1.73m2 CKD-EPI eGFR (2020). Assuming creatinine has been stable day-to-day for at least three months, the eGFR indicates Category G1 (>= 90 mL/min/1.73 m2) Lab Interpretation (test code = 36806-7) Abnormal [facility] Metabolic Panel (55292)2023-06-08 17:45:42* Test Item Value Reference Range Interpretation Comme nts NA (test code = 6444914696) 137 mmol/L 135-145 K (test code = 1154407323) 4.7 mmol/L 3.5-5.0 CL (test code = 1426067482) 107 mmol/L 98-108 CO2 TOTAL (test code = 4841839696) 25 mmol/L 23-31 AGAP (test code = 8684144876) 5 2-16 BUN (test code = 3028271846) 17 mg/dL 7-23 GLUCOSE (test code = 8383164414) 231 mg/dL 70-110 H CREATININE (test code = 2160-0) 0.71 mg/dL 0.50-1.04 TOTAL BILI (test code = 3366330352) 0.7 mg/dL 0.1-1.1 CALCIUM (test code = 4949111426) 9.9 mg/dL 8.6-10.6 T PROTEIN (test code = 0194070352) 7.2 g/dL 6.3-8.2 ALBUMIN (test code = 5408720554) 3.9 g/dL 3.5-5.0 ALK PHOS (test code = 3779268365) 89 U/L 34-122 ALTv (test code = 1742-6) 17 U/L 5-35 AST(SGOT) (test code = 8379661560) 23 U/L 13-40 eGFR (test code = 68928-4) 97.5 mL/min/1.73m2 CKD-EPI eGFR (2020). Assuming creatinine has been stable day-to-day for at least three months, the eGFR indicates Category G1 (>= 90 mL/min/1.73 m2) Lab Interpretation (test code = 76328-4) [facility] Xysrdjfgwyhmpzp2786-95-32 14:39:05Coronary angiogram/LHC/SVG and REYES angiogram Supervising Faculty: Dr Benítez was present for the entire procedure. Fellow: Dr Harvey Indication; 56 year-old female with CAD/multiple PCIs in past leading to CABGx2 in 02/06/2020, sternal wound dehisence needing surgery, kidney pancreas Tx, DM II, adrenal insufficiency on replacement, CVA, Sz, c/o CP/FERNANDEZ, Plan for LHC +-PCI 4Fr R CONCRETE [employer]OM OPERATOR micropuncture US guided access, we advanced 4Fr JL4 and J wire under fluoroscopy guidance to the Asc aorta and then to the LM selective angiogram, then 4Fr JR4 to LV and then RCA selective angiogram, then 4Fr JR4 to SVg to OM not found, then 4Fr JR4 to L SCA and then using exchannge wholey wire 4Fr CHACHA to REYES to LAD, manual compression LM; mild LILAD: pLAD mild LI, [id number]% CTOLCx: pLcx mild LI, mLCx 30%, dLCxmild LI, OM1 large vessel 30%, LCxPLB1-2 small mild LIRCA; codominant vessel, pRCA 100% SHIPPING LEAD PERSON, dRCA/RV marginal and small R{DA get left to right collaterals L SCA patentLIMA to mLAD patent, m-dLAD mildLISVG to OM not found and occluded LVEDP 16 No complications, no CP, vitals stable A/P;-Severe alutiiq CAD with mLAD SHIPPING LEAD PERSON, pRCA SHIPPING LEAD PERSON. Patent REYES to LAD. Occluded SVG to ?RCA. Lcx is mild LI. -Mild elevated LVEDP. -Aggressive medical rx for prevention of CAD. D/w patient and primary cardiology team. Overnight observation post procedure. Diabetes control. D/w pt and family. F/u with Dr Guevara as planned. Procedure DetailsCoronary angiogram/LHC/SVG and REYES angiogram Supervising Faculty: Dr Benítez was present for the entire procedure. Fellow: Dr Harvey Indication; 56 year-old female with CAD/multiple PCIs in past leading to CABGx2 in 02/06/2020, sternal wound dehisence needing surgery, kidney pancreas Tx, DM II, adrenal insufficiency on replacement, CVA, Sz, c/o CP/FERNANDEZ, Plan for LHC +- PCI 4FrR CONCRETE BOOM OPERATOR micropuncture US guided access, we advanced 4Fr JL4 and J wire under fluoroscopy guidance to the Asc aorta and then to the LM selective angiogram, then 4Fr JR4 to LV and then RCA selective angiogram, then 4Fr JR4 to SVg to OM not found, then 4Fr JR4 to L SCA and then using exchannge wholey wire 4Fr CHACHA to REYES to LAD, manual compression LM; mild LILAD: pLAD mild LI, sIUS050% CTOLCx: pLcx mild LI, mLCx 30%, dLCx mild LI, OM1 large vessel 30%, LCxPLB1-2 small mild LIRCA; codominant vessel, pRCA 100% SHIPPING LEAD PERSON, dRCA/RV marginal and small R{DA get left to right collaterals L SCA patentLIMA to mLAD patent, m- dLAD mild LISVG to OM not found and occluded LVEDP 16 No complications, no CP, vitals stable A/P;-Severe alutiiq CAD with mLAD SHIPPING LEAD PERSON, pRCA SHIPPING LEAD PERSON. Patent REYES to LAD. Occluded SVG to ?RCA. Lcx is mild LI. -Mild elevated LVEDP. -Aggressive medical rx for prevention of CAD. D/w patient and primary cardiology team. Overnight observation post procedure. Diabetes control. D/w pt and family. F/u with Dr Guevara as planned.[facility] GLUCOSE (AUTOMATED)2023-03-28 23:33:04* Test Item Value Reference Range Interpretation Comme nts POCT GLU (test code = 8640571968) 243 mg/dL 70-110 H Lab Interpretation (test cod e = 29972-9) Abnormal [facility] GLUCOSE (AUTOMATED)2023-03-28 23:33:04* Test Item Value Reference Range Interpretation Comme nts POCT GLU (test code = 8723197614) 243 mg/dL 70-110 H Lab Interpretation (test cod e = 38935-7) Abnormal [facility] GLUCOSE (AUTOMATED)2023-03-28 21:57:03* Test Item Value Reference Range Interpretation Comme nts POCT GLU (test code = 0235361867) 194 mg/dL 70-110 H Lab Interpretation (test cod e = 50305-8) Abnormal [facility] GLUCOSE (AUTOMATED)2023-03-28 21:57:03* Test Item Value Reference Range Interpretation Comme nts POCT GLU (test code = 3378190226) 194 mg/dL 70-110 H Lab Interpretation (test cod e = 01812-2) Abnormal [facility] GLUCOSE (AUTOMATED)2023-03-28 17:57:34* Test Item Value Reference Range Interpretation Comme nts POCT GLU (test code = 2377983742) 473 mg/dL 70-110 HH Lab Interpretation (test cod e = 34683-6) Abnormal [facility] GLUCOSE (AUTOMATED)2023-03-28 17:57:34* Test Item Value Reference Range Interpretation Comme nts POCT GLU (test code = 8541487994) 473 mg/dL 70-110 HH Lab Interpretation (test cod e = 70596-8) [facility]-28 14:00:32* Test Item Value Reference Range Interpretation Comme nts POCT GLU (test code = 8253255866) 353 mg/dL 70-110 H Lab Interpretation (test cod e = 30307-7) [facility]normal [facility]2023-03-28 14:00:32* Test Item Value Reference Range Interpretation Comme nts POCT GLU (test code = 7998284538) 353 mg/dL 70-110 H Lab Interpretation (test cod e = 88473-1) Abnormal [facility] GLUCOSE (AUTOMATED)2023-03-28 03:37:55* Test Item Value Reference Range Interpretation Comme nts POCT GLU (test code = 0933747618) 499 mg/dL 70-110 HH Lab Interpretation (test cod e = 92291-9) Abnormal [facility] GLUCOSE (AUTOMATED)2023-03-28 03:37:55* Test Item Value Reference Range Interpretation Comme nts POCT GLU (test code = 2319604175) 499 mg/dL 70-110 HH Lab Interpretation (test cod e = 08348-4) Abnormal [facility] GLUCOSE (AUTOMATED)2023-03-27 22:47:59* Test Item Value Reference Range Interpretation Comme nts POCT GLU (test code = 6940709385) 225 mg/dL 70-110 H Lab Interpretation (test cod e = 71841-8) Abnormal [facility] GLUCOSE (AUTOMATED)2023-03-27 22:47:59* Test Item Value Reference Range Interpretation Comme nts POCT GLU (test code = 5811775135) 225 mg/dL 70-110 H Lab Interpretation (test cod e = 33487-3) Abnormal [facility] GLUCOSE (AUTOMATED)2023-03-27 16:34:07* Test Item Value Reference Range Interpretation Comme nts POCT GLU (test code = 1974775212) 250 mg/dL 70-110 H Lab Interpretation (test cod e = 37888-6) [facility]2023-03-27 16:34:07* Test Item Value Reference Range Interpretation Comme nts POCT GLU (test code = 7215114294) 250 mg/dL 70-110 H Lab Interpretation (test cod e = 30479-6) Abnormal [facility] METABOLIC PANEL (NA, K, CL, CO2, GLUCOSE, BUN, CREATININE, CA)2023-03-27 14:45:14* Test Item Value Reference Range Interpretation Comme nts NA (test code = 7111282555) 135 mmol/L 135-145 K (test code = 2230007820) 3.8 mmol/L 3.5-5.0 CL (test code = 9083993076) 104 mmol/L 98-108 CO2 TOTAL (test code = 4388327235) 27 mmol/L 23-31 AGAP (test code = 3658806856) 4 2-16 BUN (test code = 1944772294) 12 mg/dL 7-23 GLUCOSE (test code = 8666082924) 298 mg/dL 70-110 H CREATININE (test code = 8036472725) 0.65 mg/dL 0.50-1.04 CALCIUM (test code = 0882670719) 9.6 mg/dL 8.6-10.6 eGFR (test code = 49256-5) 100.9 mL/min/1.73m2 CKD-EPI eGFR (2020). Assuming creatinine has been stable day-to-day for at least three months, the eGFR indicates Category G1 (>= 90 mL/min/1.73 m2) Lab Interpretation (test code = 39447-7) Abnormal [facility] METABOLIC PANEL (NA, K, CL, CO2, GLUCOSE, BUN, CREATININE, CA)2023-03-27 14:45:14* Test Item Value Reference Range Interpretation Comme nts NA (test code = 6189529182) 135 mmol/L 135-145 K (test code = 2582916616) 3.8 mmol/L 3.5-5.0 CL (test code = 8394128197) 104 mmol/L 98-108 CO2 TOTAL (test code = 8249834179) 27 mmol/L 23-31 AGAP (test code = 4799938907) 4 2-16 BUN (test code = 6320862657) 12 mg/dL 7-23 GLUCOSE (test code = 2027197054) 298 mg/dL 70-110 H CREATININE (test code = 8796592749) 0.65 mg/dL 0.50-1.04 CALCIUM (test code = 6301908432) 9.6 mg/dL 8.6-10.6 eGFR (test code = 72196-8) 100.9 mL/min/1.73m2 CKD-EPI eGFR (2020). Assuming creatinine has been stable day-to-day for at least three months, the eGFR indicates Category G1 (>= 90 mL/min/1.73 m2) Lab Interpretation (test code = 42255-3) [facility] / [id number] 14:40:36* Test Item Value Reference Range Interpretation Comme [facility] PROTIME PATIENT (test code = 5964-2) 10.8 See_Comment [Automated [employer]] The system which generated this result transmitted reference range: 10.1 - 12.6 Seconds. The reference range was not used to interpret this result as normal/abnormal. INR (test code = 6301-6) 1.0 Normal INR <1.1; Warfarin Therapeutic range 2.0 to 3.0 or 2.5 to 3.5, depending upon the indications. Lab Interpretation (test code = 53256-1) Normal [facility]2023-[facility] 14:40:36* Test Item Value Reference Range Interpretation Comme [facility] APTT Patient (test code = 3173-2) 28 See_Comment [Automated [employer]] The system which generated this result transmitted reference range: 26 - 36 Seconds. The reference range was not used to interpret this result as normal/abnormal. Lab Interpretation (test code = 94788-4) Normal [facility] / [id number] 14:40:36* Test Item Value Reference Range Interpretation Comme [facility] PROTIME PATIENT (test code = 5964-2) 10.8 See_Comment [Automated [employer]] The system which generated this result transmitted reference range: 10.1 - 12.6 Seconds. The reference range was not used to interpret this result as normal/abnormal. INR (test code = 6301-6) 1.0 Normal INR <1.1; Warfarin Therapeutic range 2.0 to 3.0 or 2.5 to 3.5, depending upon the indications. Lab Interpretation (test code = 80289-4) Normal [facility]23-[facility]29 14:40:36* Test Item Value Reference Range Interpretation Comme nts APTT Patient (test code = 3173-2) 28 See_Comment [Automated messa [employer]] The system which generated this result transmitted reference range: 26 - 36 Seconds. The reference range was not used to interpret this result as normal/abnormal. Lab Interpretation (test code = 85025-0) Normal [facility] GLUCOSE (AUTOMATED)2023-03-27 14:27:18* Test Item Value Reference Range Interpretation Comme [facility] POCT GLU (test code = 8907995985) 287 mg/dL 70-110 H Lab Interpretation (test cod e = 97325-8) Abnormal [facility] GLUCOSE (AUTOMATED)2023-03-27 14:27:18* Test Item Value Reference Range Interpretation Comme nts POCT GLU (test code = 8031066948) 287 mg/dL 70-110 H Lab Interpretation (test cod e = 26961-7) [facility]normal [facility] WITH [id number] 14:21:13* Test Item Value Reference Range Interpretation Comme nts WBC (test code = 6690-2) 6.45 See_Comment [Automated messa [employer]] The system which generated this result transmitted reference range: 4.30 - 11.10 10*3/?L. The reference range was not used to interpret this result as normal/abnormal. RBC (test code = 789-8) 4.50 See_Comment [Automated messa ge] The system which generated this result transmitted reference range: 3.93 - 5.25 10*6/?L. The reference range was not used to interpret this result as normal/abnormal. HGB (test code = 718-7) 13.1 g/dL 11.6-15.0 HCT (test code = 4544-3) 40.8 % 35.7-45.2 MCV (test code = 787-2) 90.7 fL 80.6-95.5 MCH (test code = 785-6) 29.1 pg 25.9-32.8 MCHC (test code = 786-4) 32.1 g/dL 31.6-35.1 RDW-SD (test code = 33675-3) 48.7 fL 39.0-49.9 RDW-CV (test code = 788-0) 14.6 % 12.0-15.5 PLT (test code = 777-3) 194 See_Comment [Automated messa ge] The system which generated this result transmitted reference range: 166 - 358 10*3/?L. The reference range was not used to interpret this result as normal/abnormal. MPV (test code = 00600-7) 9.1 fL 9.5-12.9 L NRBC/100 WBC (test code = 1016708598) 0.0 See_Comment [Automated [employer] ssage] The system which generated this result transmitted reference range: 0.0 - 10.0 /100 WBCs. The reference range was not used to interpret this result as normal/abnormal. NRBC x10^3 (test code = 1091556346) See_Comment [Automated [employer] ge] The system which generated this result transmitted reference range: 10*3/?L. The reference range was not used to interpret this result as normal/abnormal. GRAN MAT (NEUT) % (test code = 770-8) 57.0 % IMM GRAN % (test code = 0645008352) 0.20 % LYMPH % (test code = 736-9) 33.0 % MONO % (test code = 5905-5) 8.7 % EOS % (test code = 713-8) 0.8 % BASO % (test code = 706-2) 0.3 % GRAN MAT x10^3(ANC) (test code = 5672342295) 3.68 10*3/uL 1.88-7.09 IMM GRAN x10^3 (test code = 0518265930) 0.00-0.06 LYMPH x10^3 (test code = 731-0) 2.13 10*3/uL 1.32-3.29 MONO x10^3 (test code = 742-7) 0.56 10*3/uL 0.33-0.92 EOS x10^3 (test code = 711-2) 0.05 10*3/uL 0.03-0.39 BASO x10^3 (test code = 704-7) 0.01-0.07 Lab Interpretation (test code = 85545-4) Abnormal [facility] WITH [id number] 14:21:13* Test Item Value Reference Range Interpretation Comme nts WBC (test code = 6690-2) 6.45 See_Comment [Automated messa ge] The system which generated this result transmitted reference range: 4.30 - 11.10 10*3/?L. The reference range was not used to interpret this result as normal/abnormal. RBC (test code = 789-8) 4.50 See_Comment [Automated messa ge] The system which generated this result transmitted reference range: 3.93 - 5.25 10*6/?L. The reference range was not used to interpret this result as normal/abnormal. HGB (test code = 718-7) 13.1 g/dL 11.6-15.0 HCT (test code = 4544-3) 40.8 % 35.7-45.2 MCV (test code = 787-2) 90.7 fL 80.6-95.5 MCH (test code = 785-6) 29.1 pg 25.9-32.8 MCHC (test code = 786-4) 32.1 g/dL 31.6-35.1 RDW-SD (test code = 62481-2) 48.7 fL 39.0-49.9 RDW-CV (test code = 788-0) 14.6 % 12.0-15.5 PLT (test code = 777-3) 194 See_Comment [Automated messa ge] The system which generated this result transmitted reference range: 166 - 358 10*3/?L. The reference range was not used to interpret this result as normal/abnormal. MPV (test code = 10434-7) 9.1 fL 9.5-12.9 L NRBC/100 WBC (test code = 6598498621) 0.0 See_Comment [Automated [employer] ssage] The system which generated this result transmitted reference range: 0.0 - 10.0 /100 WBCs. The reference range was not used to interpret this result as normal/abnormal. NRBC x10^3 (test code = 0482154985) See_Comment [Automated messa ge] The system which generated this result transmitted reference range: 10*3/?L. The reference range was not used to interpret this result as normal/abnormal. GRAN MAT (NEUT) % (test code = 770-8) 57.0 % IMM GRAN % (test code = 5150126561) 0.20 % LYMPH % (test code = 736-9) 33.0 % MONO % (test code = 5905-5) 8.7 % EOS % (test code = 713-8) 0.8 % BASO % (test code = 706-2) 0.3 % GRAN MAT x10^3(ANC) (test code = 1582690546) 3.68 10*3/uL 1.88-7.09 IMM GRAN x10^3 (test code = 9590061247) 0.00-0.06 LYMPH x10^3 (test code = 731-0) 2.13 10*3/uL 1.32-3.29 MONO x10^3 (test code = 742-7) 0.56 10*3/uL 0.33-0.92 EOS x10^3 (test code = 711-2) 0.05 10*3/uL 0.03-0.39 BASO x10^3 (test code = 704-7) 0.01-0.07 Lab Interpretation (test code = 93200-5) Abnormal [facility] HEMOGLOBIN A1C [id number] 16:36:00* Test Item Value Reference Range Interpretation Comme nts POCT HBA1C (test code = 4548-4) 10.3 % 4-6 A Lab Interpretation (test cod e = 57275-3) Abnormal [facility] HEMOGLOBIN A1C [id number] 16:36:00* Test Item Value Reference Range Interpretation Comme nts POCT HBA1C (test code = 4548-4) 10.3 % 4-6 A Lab Interpretation (test cod e = 50515-2) Abnormal [facility] HEMOGLOBIN A1C [id number] 16:06:00* Test Item Value Reference Range Interpretation Comme [facility] POCT HBA1C (test code = 4548-4) 10.3 % 4-6 A Lab Interpretation (test cod e = 50646-9) Abnormal [facility] HEMOGLOBIN A1C [id number] 16:06:00* Test Item Value Reference Range Interpretation Comme nts POCT HBA1C (test code = 4548-4) 10.3 % 4-6 A Lab Interpretation (test cod e = 65763-6) Abnormal [facility] HEMOGLOBIN A1C [id number] 16:06:00* Test Item Value Reference Range Interpretation Comme nts POCT HBA1C (test code = 4548-4) 10.3 % 4-6 A Lab Interpretation (test cod e = 89359-9) Abnormal [facility] GLUCOSE (AUTOMATED)2022-08-11 21:43:18* Test Item Value Reference Range Interpretation Comme nts POCT GLU (test code = 2362731629) 227 mg/dL 70-110 H Lab Interpretation (test cod e = 63507-3) Abnormal [facility] GLUCOSE (AUTOMATED)2022-08-11 17:02:16* Test Item Value Reference Range Interpretation Comme nts POCT GLU (test code = 9467246122) 128 mg/dL 70-110 H Lab Interpretation (test cod e = 12271-0) Abnormal [facility] GLUCOSE (AUTOMATED)2022-08-11 13:19:57* Test Item Value Reference Range Interpretation Comme nts POCT GLU (test code = 4090498013) 223 mg/dL 70-110 H Lab Interpretation (test cod e = 81525-2) Abnormal [facility] GLUCOSE (AUTOMATED)2022-08-11 01:33:34* Test Item Value Reference Range Interpretation Comme nts POCT GLU (test code = 8420467577) 139 mg/dL 70-110 H Lab Interpretation (test cod e = 70820-9) Abnormal [facility] GLUCOSE (AUTOMATED)2022-08-10 21:38:15* Test Item Value Reference Range Interpretation Comme nts POCT GLU (test code = 0938904022) 223 mg/dL 70-110 H Lab Interpretation (test cod e = 16360-7) Abnormal [facility] GLUCOSE (AUTOMATED)2022-08-10 17:11:18* Test Item Value Reference Range Interpretation Comme nts POCT GLU (test code = 6810525753) 281 mg/dL 70-110 H Lab Interpretation (test cod e = 39988-3) [facility]10 13:19:59* Test Item Value Reference Range Interpretation Comme nts POCT GLU (test code = 8813266634) 190 mg/dL 70-110 H Lab Interpretation (test cod e = 14936-9) [facility]2022-08-10 08:55:56* Test Item Value Reference Range Interpretation Comme nts POCT GLU (test code = 2010931264) 153 mg/dL 70-110 H Lab Interpretation (test cod e = 48552-6) Abnormal [facility] GLUCOSE (AUTOMATED)2022-08-10 04:38:08* Test Item Value Reference Range Interpretation Comme nts POCT GLU (test code = 0193954979) 125 mg/dL 70-110 H Lab Interpretation (test cod e = 36962-0) Abnormal [facility] GLUCOSE (AUTOMATED)2022-08-10 01:41:02* Test Item Value Reference Range Interpretation Comme nts POCT GLU (test code = 9584943222) 302 mg/dL 70-110 H Lab Interpretation (test cod e = 47290-5) [facility]normal [facility] Center[facility]IT[facility] B12, [id number] 01:22:46* Test Item Value Reference Range Interpretation Comme nts VIT B12 (test code = 0348202317) 448 pg/mL 240-930 AMELIA (test code = AMELIA) Biotin has been reported to cause a positive bias, interpret results relative to patient's use of biotin. Lab Interpretation (test code = 74100-2) Normal [facility] GLUCOSE (AUTOMATED)2022-08-10 01:06:40* Test Item Value Reference Range Interpretation Comme nts POCT GLU (test code = 1782019509) 315 mg/dL 70-110 H Lab Interpretation (test cod e = 01254-6) Abnormal [facility] GLUCOSE (AUTOMATED)2022-08-09 21:43:47* Test Item Value Reference Range Interpretation Comme nts POCT GLU (test code = 4340208864) 338 mg/dL 70-110 H Lab Interpretation (test cod e = 70723-8) Abnormal [facility] GLUCOSE (AUTOMATED)2022-08-09 17:17:36* Test Item Value Reference Range Interpretation Comme nts POCT GLU (test code = 9230037539) 356 mg/dL 70-110 H Lab Interpretation (test cod e = 28813-4) Abnormal [facility] GLUCOSE (AUTOMATED)2022-08-09 15:03:13* Test Item Value Reference Range Interpretation Comme nts POCT GLU (test code = 7520565236) 229 mg/dL 70-110 H Notified Provide r Lab Interpretation (test code = 50771-5) Abnormal [facility] GLUCOSE (AUTOMATED)2022-08-09 13:10:19* Test Item Value Reference Range Interpretation Comme nts POCT GLU (test code = 5091807005) 172 mg/dL 70-110 H Notified Provide r Lab Interpretation (test code = 72095-8) Abnormal [facility] METABOLIC PANEL (NA, K, CL, CO2, GLUCOSE, BUN, CREATININE, CA)2022-08-09 10:37:20* Test Item Value Reference Range Interpretation Comme nts NA (test code = 3115254470) 138 mmol/L 135-145 K (test code = 1265621173) 4.1 mmol/L 3.5-5.0 Slight hemolysis CL (test code = 4376613837) 106 mmol/L 98-108 CO2 TOTAL (test code = 9875360666) 26 mmol/L 23-31 AGAP (test code = 4371367609) 6 2-16 BUN (test code = 2388344849) 14 mg/dL 7-23 Slight hemolysis GLUCOSE (test code = 7049925228) 196 mg/dL 70-110 H CREATININE (test code = 6161272065) 0.57 mg/dL 0.50-1.04 CALCIUM (test code = 0272560457) 8.8 mg/dL 8.6-10.6 eGFR (test code = 8434103648) 108.6 mL/min/1.73m2 AMELIA (test code = AMELIA) Association of Glomerular Filtration Rate (GFR) and Staging of Kidney Disease* + -----+ --------+ +| GFR (mL/min/1.73 m2) ?| With Kidney Damage ?| ?Without Kidney Damage+ +------- +---- --+| ?>90 ?| ?Stage one ?| ? Normal ?+ ------+ ---------+--------- +| ?60-89 ?| ?Stage two ?| ? Decreased GFR ? + -----+ --------+ +| ?30-59 ?| ?Stage three ?| ? Stage three ? + -----+ --------+ +| ?15-29 ?| ?Stage four ? | ? Stage four ?+ ------+ ---------+--------- +| ?<15 (or dialysis) ? ?| ?Stage five ? | ? Stage five ?+ ------+ ---------+--------- + *Each stage assumes the associated GFR level has been in effect for at least three months. ?Stages 1 to 5, with or without kidney disease, indicate chronic kidney disease. Notes: Determination of stages one and two (with eGFR >59mL/min/1.73 m2) requires estimation of kidney damage for at least three months as defined by structural or functional abnormalities of the kidney, manifested by either:Pathological abnormalities or Markers of kidney damage (including abnormalities in the composition of the blood or urine or abnormalities in imaging tests). Lab Interpretation (test code = 29172-0) [facility] 10:31:42* Test Item Value Reference Range Interpretation Comme nts MAGNESIUM (test code = 8733735044) 1.6 mg/dL 1.7-2.4 L Lab Interpretation (test cod e = 22698-4) Abnormal [facility] GLUCOSE (AUTOMATED)2022-08-09 09:02:11* Test Item Value Reference Range Interpretation Comme nts POCT GLU (test code = 1617417552) 207 mg/dL 70-110 H Lab Interpretation (test cod e = 56506-6) Abnormal [facility] GLUCOSE (AUTOMATED)2022-08-09 05:04:08* Test Item Value Reference Range Interpretation Comme nts POCT GLU (test code = 3732834902) 261 mg/dL 70-110 H Lab Interpretation (test cod e = 25260-0) Abnormal [facility] GLUCOSE (AUTOMATED)2022-08-09 02:12:20* Test Item Value Reference Range Interpretation Comme nts POCT GLU (test code = 6583549726) 265 mg/dL 70-110 H Lab Interpretation (test cod e = 66804-7) Abnormal [facility] (Total Cholesterol, Triglycerides, HDL) - [id number] 01:27:53* Test Item Value Reference Range Interpretation Comme nts CHOL (test code = 3513238152) 132 mg/dL 120-200 HDL (test code = 6219247339) 55 mg/dL >=50 HDLC RATIO (test code = 0111082818) 2.4 <=4.5 TRIG (test code = 5374007952) 168 mg/dL 30-170 LDL CHOL (test code = 28673-1) 43 mg/dL <=160 VLDL (test code = 5665356935) 34 mg/dL 5-60 Lab Interpretation (test cod e = 62467-7) Normal [facility] GLUCOSE (AUTOMATED)2022-08-08 22:05:56* Test Item Value Reference Range Interpretation Comme [facility] POCT GLU (test code = 8662739713) 272 mg/dL 70-110 H Lab Interpretation (test cod e = 21481-3) Abnormal [facility] GLUCOSE (AUTOMATED)2022-08-08 16:29:59* Test Item Value Reference Range Interpretation Comme nts POCT GLU (test code = 3970454137) 160 mg/dL 70-110 H Lab Interpretation (test cod e = 63483-2) Abnormal [facility] GLUCOSE (AUTOMATED)2022-08-08 12:37:22* Test Item Value Reference Range Interpretation Comme nts POCT GLU (test code = 0235456989) 214 mg/dL 70-110 H Lab Interpretation (test cod e = 84181-0) Abnormal [facility] CenterVITAMIN D, [id number] 12:20:28* Test Item Value Reference Range Interpretation Comme [facility] VIT D 25OH (test code = 35408-8) 29 ng/mL 25-80 AMELIA (test code = AMELIA) Deficiency: <20 ng/mLInsufficiency : 20-24 ng/mLOptimal: 25-80 ng/mL Lab Interpretation (test code = 59079-0) Normal [facility] CenterTHYROID STIMULATING [id number] 12:14:28 * Test Item Value Reference Range Interpretation Comme nts TSH (test code = 4770913074) 0.64 See_Comment [Automated messa ge] The system which generated this result transmitted reference range: 0.45 - 4.70 mIU/L. The reference range was not used to interpret this result as normal/abnormal. Lab Interpretation (test code = 78620-0) Normal [facility] CenterN-TERMINAL [id number] 11:53:06* Test Item Value Reference Range Interpretation Comme nts NT-proBNP (test code = 8060332520) 238 pg/mL <=125 H AMELIA (test code = AMELIA) Biotin has been reported to cause a negative bias, interpret results relative to patient's use of biotin. Lab Interpretation (test code = 62145-3) Abnormal [facility] CenterGLYCOSYLATED HEMOGLOBIN (A1C)2022-08-08 11:44:51* Test Item Value Reference Range Interpretation Comme nts HGB A1C (test code = 4548-4) 10.0 % 4.0-5.7 H AMELIA (test code = AMELIA) Reference RangesNormal: <5.7%Prediabetes: 5.7 - 6.4%Diabetes: > 6.5% Lab Interpretation (test code = 90238-8) Abnormal [facility] CenterAMYLASE2023-05-12 11:42:28* Test Item Value Reference Range Interpretation Comme nts [place] (test code = 2618447290) 68 U/L 35-110 Lab Interpretation (test cod e = 96462-1) Normal [facility] CenterBASI METABOLIC PANEL (NA, K, CL, CO2, GLUCOSE, BUN, CREATININE, CA)2022-08-08 11:35:43* Test Item Value Reference Range Interpretation Comme nts NA (test code = 4557952973) 137 mmol/L 135-145 K (test code = 0628478967) 3.3 mmol/L 3.5-5.0 L CL (test code = 7065526903) 106 mmol/L 98-108 CO2 TOTAL (test code = 4658760237) 21 mmol/L 23-31 L AGAP (test code = 9257064055) 10 2-16 BUN (test code = 6280952748) 12 mg/dL 7-23 GLUCOSE (test code = 9702679049) 191 mg/dL 70-110 H CREATININE (test code = 3703040810) 0.59 mg/dL 0.50-1.04 CALCIUM (test code = 1829407164) 9.2 mg/dL 8.6-10.6 eGFR (test code = 3777424227) 104.3 mL/min/1.73m2 AMELIA (test code = AMELIA) Association of Glomerular Filtration Rate (GFR) and Staging of Kidney Disease* + --+ --+ ------+| GFR (mL/min/1.73 m2) ?| With Kidney Damage ?| ?Without Kidney Damage+ --------+ --------+ +| ?>90 ?| ?Stage one ?| ? Normal ?+ ---+ ---+ -------+| ?60-89 ?| ?Stage two ?| ? Decreased GFR ? + --+ --+ ------+| ?30-59 ?| ?Stage three ?| ? Stage three ? + --+ --+ ------+| ?15-29 ?| ?Stage four ? | ? Stage four ?+ ---+ ---+ -------+| ?<15 (or dialysis) ? ?| ?Stage five ? | ? Stage five ?+ ---+ ---+ -------+ *Each stage assumes the associated GFR level has been in effect for at least three months. ?Stages 1 to 5, with or without kidney disease, indicate chronic kidney disease. Notes: Determination of stages one and two (with eGFR >59mL/min/1.73 m2) requires estimation of kidney damage for at least three months as defined by structural or functional abnormalities of the kidney, manifested by either:Pathological abnormalities or Markers of kidney damage (including abnormalities in the composition of the blood or urine or abnormalities in imaging tests). Lab Interpretation (test code = 72417-5) Abnormal [facility] GLUCOSE (AUTOMATED)2022-08-08 10:51:28* Test Item Value Reference Range Interpretation Comme [facility] POCT GLU (test code = 4813765265) 180 mg/dL 70-110 H Lab Interpretation (test cod e = 49363-8) Abnormal [facility] GLUCOSE (AUTOMATED)2022-08-08 06:28:42* Test Item Value Reference Range Interpretation Comme [facility] POCT GLU (test code = 9994948409) 214 mg/dL 70-110 H Lab Interpretation (test cod e = 80460-4) Abnormal [facility] CenterPOCT [facility]SE (AUTOMATED)2022-08-08 05:12:27* Test Item Value Reference Range Interpretation Comme [facility] POCT GLU (test code = 4583328183) 307 mg/dL 70-110 H Lab Interpretation (test cod e = 90324-9) [facility] (48850[facility]2022-[facility]-08 04:25:46* Test Item Value Reference Range Interpretation Comme [facility] NA (test code = 9568663262) 131 mmol/L 135-145 L K (test code = 3622294602) 4.3 mmol/L 3.5-5.0 CL (test code = 3973030556) 98 mmol/L 98-108 CO2 TOTAL (test code = 2835748189) 23 mmol/L 23-31 AGAP (test code = 6428153930) 10 2-16 BUN (test code = 7899622268) 16 mg/dL 7-23 GLUCOSE (test code = 2000255345) 434 mg/dL 70-110 H CREATININE (test code = 2756980722) 0.70 mg/dL 0.50-1.04 TOTAL BILI (test code = 0292130779) 0.8 mg/dL 0.1-1.1 CALCIUM (test code = 5912829553) 9.5 mg/dL 8.6-10.6 T PROTEIN (test code = 5403446776) 6.8 g/dL 6.3-8.2 ALBUMIN (test code = 6600190074) 3.9 g/dL 3.5-5.0 ALK PHOS (test code = 5182406199) 49 U/L 34-122 ALTv (test code = 1742-6) 31 U/L 5-35 AST(SGOT) (test code = 3842260967) 24 U/L 13-40 eGFR (test code = 4991549617) 85.6 mL/min/1.73m2 AMELIA (test code = AMELIA) Association of Glomerular Filtration Rate (GFR) and Staging of Kidney Disease* + --+ --+ ------+| GFR (mL/min/1.73 m2) ?| With Kidney Damage ?| ?Without Kidney Damage+ --------+ --------+ +| ?>90 ?| ?Stage one ?| ? Normal ?+ ---+ ---+ -------+| ?60-89 ?| ?Stage two ?| ? Decreased GFR ? + --+ --+ ------+| ?30-59 ?| ?Stage three ?| ? Stage three ? + --+ --+ ------+| ?15-29 ?| ?Stage four ? | ? Stage four ?+ ---+ ---+ -------+| ?<15 (or dialysis) ? ?| ?Stage five ? | ? Stage five ?+ ---+ ---+ -------+ *Each stage assumes the associated GFR level has been in effect for at least three months. ?Stages 1 to 5, with or without kidney disease, indicate chronic kidney disease. Notes: Determination of stages one and two (with eGFR >59mL/min/1.73 m2) requires estimation of kidney damage for at least three months as defined by structural or functional abnormalities of the kidney, manifested by either:Pathological abnormalities or Markers of kidney damage (including abnormalities in the composition of the blood or urine or abnormalities in imaging tests). Lab Interpretation (test code = 70718-0) Abnormal [facility] CenterLIPASE2023-05-12 04:25:05* Test Item Value Reference Range Interpretation Comme nts LIPASE (test code = 7874128481) 193 U/L 0-220 Lab Interpretation (test cod e = 55485-8) Normal [facility] CenterPOCT GLU[facility]SE (AUTOMATED)2022-08-08 04:21:42* Test Item Value Reference Range Interpretation Comme nts POCT GLU (test code = 5771549192) 390 mg/dL 70-110 H Lab Interpretation (test cod e = 45503-3) Abnormal [facility] CenterCB WITH [id number] 04:14:07* Test Item Value Reference Range Interpretation Comme nts WBC (test code = 6690-2) 7.12 See_Comment [Automated Click With Me Now] The system which generated this result transmitted reference range: 4.30 - 11.10 10*3/?L. The reference range was not used to interpret this result as normal/abnormal. RBC (test code = 789-8) 4.65 See_Comment [Automated [employer]] The system which generated this result transmitted reference range: 3.93 - 5.25 10*6/?L. The reference range was not used to interpret this result as normal/abnormal. HGB (test code = 718-7) 14.1 g/dL 11.6-15.0 HCT (test code = 4544-3) 42.5 % 35.7-45.2 MCV (test code = 787-2) 91.4 fL 80.6-95.5 MCH (test code = 785-6) 30.3 pg 25.9-32.8 MCHC (test code = 786-4) 33.2 g/dL 31.6-35.1 RDW-SD (test code = 54481-8) 43.0 fL 39.0-49.9 RDW-CV (test code = 788-0) 13.0 % 12.0-15.5 PLT (test code = 777-3) 188 See_Comment [Automated messa ge] The system which generated this result transmitted reference range: 166 - 358 10*3/?L. The reference range was not used to interpret this result as normal/abnormal. MPV (test code = 59327-9) 9.6 fL 9.5-12.9 NRBC/100 WBC (test code = 5875611267) 0.0 See_Comment [Automated [employer] ssage] The system which generated this result transmitted reference range: 0.0 - 10.0 /100 WBCs. The reference range was not used to interpret this result as normal/abnormal. NRBC x10^3 (test code = 8853565731) See_Comment [Automated [employer] ge] The system which generated this result transmitted reference range: 10*3/?L. The reference range was not used to interpret this result as normal/abnormal. GRAN MAT (NEUT) % (test code = 770-8) 69.3 % IMM GRAN % (test code = 4505989939) 0.40 % LYMPH % (test code = 736-9) 23.2 % MONO % (test code = 5905-5) 6.7 % EOS % (test code = 713-8) 0.1 % BASO % (test code = 706-2) 0.3 % GRAN MAT x10^3(ANC) (test code = 7094857067) 4.93 10*3/uL 1.88-7.09 IMM GRAN x10^3 (test code = 9708133155) 0.03 10*3/uL 0.00-0.06 LYMPH x10^3 (test code = 731-0) 1.65 10*3/uL 1.32-3.29 MONO x10^3 (test code = 742-7) 0.48 10*3/uL 0.33-0.92 EOS x10^3 (test code = 711-2) 0.03-0.39 L BASO x10^3 (test code = 704-7) 0.01-0.07 Lab Interpretation (test code = 41002-3) Abnormal [facility] CenterPO[facility]SE (AUTOMATED)2022-08-08 02:42:40* Test Item Value Reference Range Interpretation Comme nts POCT GLU (test code = 7333784581) 474 mg/dL 70-110 HH Lab Interpretation (test cod e = 24257-1) Abnormal [facility] CenterPULMONARY FUNCTION TEST (RESULTS)2022-04-16 17:44:43* Test Item Value Reference Range Interpretation Comme nts FVC Actual (test code = 3994) 1.61 L FEV1 Actual (test code = 3993) 1.45 L FEV1/FVC Actual (test code = 3995) 90 % [facility] CenterIMMUNOLOGY2020-11-19 00:07:00* Test Item Value Reference Range Interpretation Comme nts Coronavirus (COVID-19) CEE (test code = Coronavirus (COVID-19) CEE) Not Detected (02/15/20 6:07 PM) [facility] [id number] 23:08:00* Test Item Value Reference Range Interpretation Comme nts Procalcitonin Lvl (test code = Procalcitonin Lvl) 0.27 <=0.10 [Autom ated message] The system which generated this result transmitted reference range: <=0.10. The reference range was not used to interpret this result as normal/abnormal. Glucose Lvl (test code = Glucose Lvl) 154 70-99 BUN (test code = BUN) 24 7-22 Creatinine Lvl (test code = Creatinine Lvl) 1.04 0.50-1.40 Sodium Lvl (test code = Sodium Lvl) 134 135-145 Potassium Lvl (test code = Potassium Lvl) 3.6 3.5-5.1 Chloride Lvl (test code = Chloride Lvl) 96 95-109 CO2 (test code = CO2) 30 24-32 Calcium Lvl (test code = Calcium Lvl) 8.8 8.5-10.5 Total Protein (test code = Total Protein) 6.3 6.4-8.4 Albumin Lvl (test code = Albumin Lvl) 2.4 3.5-5.0 ALT (test code = ALT) 36 <=65 AST (test code = AST) 33 <=37 Alk Phos (test code = Alk Phos) 122 39-136 Bili Total (test code = Bili Total) 0.6 0.2-1.3 AGAP (test code = AGAP) 11.6 10.0-20.0 B/C Ratio (test code = B/C Ratio) 23 1 6-25 Globulin (test code = Globulin) 3.9 2.7-4.2 A/G Ratio (test code = A/G Ratio) 0.6 1 0.7-1.6 eGFR (test code = eGFR) 60 Lactic Acid Lvl (test code = Lactic Acid Lvl) 3.1 0.5-2.2 [id number] 23:08:00* Test Item Value Reference Range Interpretation Comme nts WBC (test code = WBC) 14.8 3.7-10.4 RBC (test code = RBC) 2.38 4.20-5.40 Hgb (test code = Hgb) 7.5 12.0-16.0 Hct (test code = Hct) 23.4 36.0-48.0 MCV (test code = MCV) 98.2 80.0-98.0 MCH (test code = MCH) 31.5 pg 27.0-31.0 MCHC (test code = MCHC) 32.1 32.0-36.0 RDW (test code = RDW) 14.9 11.5-14.5 Platelet (test code = Platelet) 332 133-450 MPV (test code = MPV) 7.5 7.4-10.4 PT (test code = PT) 15.0 s 12.0-14.7 INR (test code = INR) 1.17 1 0.85-1.17 PTT (test code = PTT) 32.7 s 22.9-35.8 Segs (test code = Segs) 83.2 45.0-75.0 Lymphocytes (test code = Lymphocytes) 8.1 20.0-40.0 Monocytes (test code = Monocytes) 8.5 2.0-12.0 Eosinophils (test code = Eosinophils) 0.1 <=4.0 Basophils (test code = Basophils) 0.1 <=1.0 Neutrophils # (test code = Neutrophils #) 12.3 1.5-8.1 Lymphocytes # (test code = Lymphocytes #) 1.2 1.0-5.5 Monocytes # (test code = Monocytes #) 1.3 <=0.8 [facility] [id number] 23:08:00* Test Item Value Reference Range Interpretation Comme nts Total CK (test code = Total CK) 111 12-191 Troponin-I (test code = Troponin-I) 0.28 <=0.40 [facility] LESS THAN 3 [id number] 14:56:00 *.*.*.*.*.*.*.*.*.*.*.*.*.*FINAL*.*.*.*.*.*.*.*.*.*.*.*.*.*.*ELBOW, LESS THAN 3 VIEWS-Right Side HISTORY: 47 y/o female ?with right lateral condyle pain COMPARISON: 05/14/12 FINDINGS: No fracture dislocation is present. The joint spaces and alignment aremaintained. Vascular calcifications are present. GERTRUDIS BRYAN MD ?Personally interpreted by: YSABEL RUSSO MD /Signed/ YSABEL RUSSO MDUnValley Baptist Medical Center – BrownsvilleGYN ORDER/REPORT [id number] 21:31:00* Test Item Value Reference Range Interpretation Comme nts SUPERINTENDENT ELECTRIC POWER CLINICAL INFORMATION (test code = 994) LMP: ?12/18/11# SLIDES: ? 1CLINICAL DX: ? ? ?V72.31 GIVEN-WWE,BTL,NORMAL ? OBF. SUPERINTENDENT ELECTRIC POWER SPECIMEN TYPE (test code = 1000) CERVICAL SUREPATH SUPERINTENDENT ELECTRIC POWER STATEMENT OF ADEQUACY (test code = 1001) ..SATISFACTORY FOR EVALUATION.ENDOCERVICAL COMPONENT PRESENT. SUPERINTENDENT ELECTRIC POWER DIAGNOSIS (test code = 996) ..NEGATIVE FOR INTRAEPITHELIAL LESION OR MALIGNANCY SUPERINTENDENT ELECTRIC POWER DIAGNOSIS SIGNATURE LINE (test code = 2965) ? ......The Pap test is a screening test with an inherent, but low, probabilityof error.For this reason, annual Pap screening test is recommended.Yourpatient should be reminded to consult you immediately if she experiencesany suspicious signs or symptoms, even if her Pap test result is Nega-tive for Intraepithelial Lesion or Malignancy (Within Normal Limits).01/15/12 ? ?SCREENED BY: ?Janeen SULLIVAN CT(ASCP)01/15/12 ? ?VERIFIED BY: ?Janeen SULLIVAN CT(ASCP) ?(ELECTRONIC SIGNATURE) [facility] CenterTESTOSTERONE LC-MS/MS, [id number] 09:36:00 * Test Item Value Reference Range Interpretation Comme nts TESTOS (test code = 3375) 24 ng/dL 9-55 PERFORMED AT ?[facility], [address] [place] [address] [id number] Testosterone, Females 18 years and older^ Premenopausal ?9-55 ng/dL^ Postmenopausal 5-32 ng/dL^REFERENCE INTERVAL: Testosterone, LC-MS/MS^Access complete set of age- and/or gender-specific^reference intervals for this test in the [facility]^Test Directory ([employer]).^ Sex Hormone Binding Globulin (test code = 1797) 92 nmol/L 30-135 PERFORMED AT ?[facility], [address] [place] [address] [id number] INTERVAL: Sex Hormone Binding Globulin^Access complete set of age- and/or gender-specific^reference intervals for this test in the [facility]^Test Directory ([employer]).^ TESTOS, FREE (test code = 3377) 2.0 pg/mL 1.1-5.8 PERFORMED AT ?[facility], [address] [place] [address] [id number] convert to pmol/L, multiply pg/mL by 3.47^The concentration of Free Testosterone is derived from a^mathematical expression based on the constant for the^binding of testosterone to sex hormone binding globulin.^Testosterone, Free LC-MS/MS Reference Interval for Females^18 years and older^ Postmenopausal: 0.6 - 3.8 pg/mL^REFERENCE INTERVAL: Testosterone, Free LC-MS/MS^Access complete set of age- and/or gender-specific^reference intervals for this test in the [facility]^Test Directory ([employer]).^ [facility] CenterDIGITAL MAMMOGRAM, [id number] 17:10:00*.*.*.*.*.*.*.*.*.*.*.*.*.*FINAL*.*.*.*.*.*.*.*.*.*.*.*.*.*.*Computer- aided detection(CAD)utilized.No comparison images were available at the time of this reading. ? Bilateral Breast Findings:There are scattered fibroglandular densities (25% - 50% fibroglandular). ?No significant masses, calcifications or other abnormalities are seen. GERTRUDIS BRYAN MD ?Personally interpreted by: CHARLES SANTIAGO JR /Signed/ CHARLES SANTIAGO JRUnValley Baptist Medical Center – BrownsvilleFOLLICLE STIMULATING [id number] 14:36:00* Test Item Value Reference Range Interpretation Comme nts FSH (test code = 865) 66.84 mIU/ml MENSTRUATING FEM ADELA ?RANGE (mIU/ml)*Follicular phase................... 3.8-8.8Mid-cycle peak..................... 4.5-22.85Luteal phase....................... 1.7-5.1Post-menopausal female............. 16.7-113.6ADULT MALE........................ . 1.2-19. [facility] CenterLUTEINIZING HORMONE [id number] 14:36:00* Test Item Value Reference Range Interpretation Comme nts LH (test code = 1322) 60.63 mIU/ml MENSTRUATING FEM ADELA ? RANGE (mIU/mL)Follicular phase.................... 2.1-10.9Mid-cycle peak...................... 19.1-103.0Luteal phase....................... . 1.2-12.8Post-menopausal female.............. 10.8-58.6ADULT MALE........................ .. 1.2-8.6 [facility]TR[facility], [id number] 14:36:00* Test Item Value Reference Range Interpretation Comme nts ESTRADIOL (test code = 785) 28 PG/ML NORMAL RANGE FOR ESTRADIOL. ? FEMALE. ?Follicular ? ? ? 27 - 122 PG/ML ?Mid-cycle ?95 - 433 PG/ML ?Luteal ? 49 - 291 PG/ML ?Post Menopausal ?20 - ?40 PG/ML. ? MALE ? ? 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 EXAM: ?Right Upper Quadrant Ultrasound. Comparison: 01/22/2009. FINDINGS: ? The liver is normal in size, shape, and echotexture. The liver measures 12.6 cm. ?No intrahepatic biliary dilatation is identified. ?The main portal vein is normal in caliber demonstrates normal hepatopetal flow. The gallbladder is not present. ?The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 Take 1 tablet by mouth 2 (two) times daily as needed for Pain (scale 7-10). Indications: acute pain, left knee pain 09/09/23 Justina Melendez NP MYCOPHENOLATE 250 mg capsule TAKE 1 CAPSULE BY MOUTH EVERY 12 HOURS. 08/18/23 Rafi Gaona MD tacrolimus 0.5 mg capsule Take 2 capsules by mouth every morning AND 1 capsule every evening. z94.0 06/12/23 Grupo Crouch MD pantoprazole 40 mg EC tablet Take 1 tablet by mouth in the morning. 06/08/23 Justina Melendez NP metoprolol succinate XL 25 mg 24 hr tablet Take 0.5 tablets by mouth in the morning. 04/06/23 Griffin Guevara MD enalapril 2.5 mg tablet Take 1 tablet by mouth in the morning. 03/06/23 Marshall Werner MD furosemide (LASIX) 20 mg tablet Take 1 tablet by mouth in the morning. Or as needed for swelling. 02/25/23 Griffin Guevara MD cyanocobalamin 1,000 mcg/mL injection inject 1 mL under the skin every 14 (fourteen) days. 01/07/23 Justina Melendez NP proMETHazine 25 mg tablet TAKE ONE (1) TABLET(S) BY MOUTH EVERY SIX HOURS NEEDED FOR NAUSEA AND VOMITING. 01/07/23 Justina Melendez NP Syringe-Needle, Safety,Disp Un 3 mL 25 gauge x 5/8" Syrg Use as directed 01/07/23 Justina Melendez NP albuterol 90 mcg/actuation inhaler Inhale 2 Puffs every 6 (six) hours as needed for Wheezing or Shortness of Breath. 11/17/22 Ita Cai, aspirin 81 mg chewable tablet Take 1 tablet by mouth in the morning. 08/11/22 Willam, Shini, MD budesonide-formoteroL (SYMBICORT) 80-4.5 mcg/actuation inhaler Inhale 2 Puffs in the morning and 2 Puffs in the evening. 08/11/22 Antonette Quarles MD cyclobenzaprine 10 mg tablet Take 1 tablet by mouth at bedtime. 08/11/22 Antonette Quarles MD fluticasone propionate 50 mcg/actuation nasal spray Use 1 Magna in each nostril in the morning and 1 Magna in the evening. 08/11/22 Antonette Quarles MD polyethylene glycol 3350 (CLEARLAX) 17 gram/dose powder Take 17 g by mouth in the morning and 17 g in the evening. Patient taking differently: Take 17 g by mouth in the morning and 17 g in the evening. As needed 08/11/22 Antonette Quarles MD biotin 1 mg Cap Take 1 capsule by mouth daily. Doctor Unassigned, [place] MULTIVITAMIN ORAL Take 1 tablet by mouth in the morning. Doctor Unassigned, [place] Allergies/ADR: Allergies Allergen Reactions Adhesive Tape Rash Contrast [Iodine And Iodide Containing Products] Hives Morphine Shortness of Breath and Swelling Drug-Drug Interactions: There are no significant drug-drug interactions Immunization History Administered Date(s) Administered Flu Injectable MDCK Pres-Free (FLUCELVAX) 12/15/2023 H1n1 Vaccine 03/01/2009 Influenza Virus Vaccine 01/31/2010, 12/22/2011, 01/16/2018, 01/12/2020 Influenza Virus Vaccine Quad IM 3+ YRS 03/13/2016 Influenza Virus Vaccine Quad IM, Preserv and ABX Free 6 MO-64 YRS (FLUCELVAX) 02/03/2022 SARS-COV-2 COVID-19 PFIZER VACCINE 05/26/2020, 06/16/2020, 12/04/2020 Vaccine history was reviewed. The patient was reminded about the importance of receiving an annual influenza vaccine as indicated. Recent Labs 03/03/23 1030 04/22/23 1047 06/08/23 1111 11/17/23 1153 HGBA1C -- 10.3* 10.3* -- [id number] 10.3* -- -- 9.9* MICROAL/CR (no units) Date Value 11/26/2023 Comment: Unable to calculate because, either CREATININE URINE, URINE ALBUMIN or both are less than the sensitivity of the analyzer. Assessment: 1. DIABETES Patient NOT controlled to goal A1c of 6-7.0% per ADA guidelines Fasting SMBG above goal of 80-130 mg/dL and pre-dinner and bedtime SMBG above goal of 100-140 mg/dL Few low pre-lunch SMBG d/t eating smaller breakfast Will encourage patient to take half dose of insulin if eating smaller meals Self-decreased basal insulin ~4 days ago d/t concern for hypoglycemia Denies s/sx or readings of hypoglycemia Has not started using Freestyle Karla 3 yet d/t cost Will send to [facility] as sensors and reader covered Will titrate basal and meal-time insulin to target elevated SMBG Patient is on 2 times the amount of bolus insulin compared to basal insulin Will increase TDD by 20% -- will redistribute to target 50% basal + 50% bolus Plan/Recommendations: Increase Toujeo Solostar U-300 (insulin glargine) to 33 units daily (AM) Increase Novolog Flexpen (insulin aspart) to 11 units 3x/day with each meal + SSI If eating a smaller meal, instructed to cut dose in half Patient is due for annual eye exam Will follow up in 2-3 weeks Time spent with patient/coordination: 30 minutes Irwin Pimentel, PharmD PGY2 Grinder Outside [employer] Swing Grinder Future Appointments Provider Department Dept Phone 04/12/2024 10:30 AM Jess Doan MD [facility] Endocrinology, [facility] [phone] Irwin Pimentel [facility] 2023-12-16 09:00:21 LM for patient to call back at earliest convenience. Mireya Shea RN [facility] 2023-12-15 17:21:17 Her thyroid and vitamin D level was normal [facility] 2023-12-15 13:50:55 [facility] calling to have script changed to Truemetri so insurance will cover Yair Oropeza [facility] 2023-12-15 13:22:56 Medicare only cover max 3 times glucose testing . RX for onetouch meter/strip was sent Did she received her karla 3 CGM? [facility] 2023-12-15 11:16:40 Evelia Casas is a 58 year old female PT is needing one touch strips rx for a different meter that she got in order for insurance to cover it . States she is checking it 5 times a day Please advise, thank you [facility] [place], [place] - [address] [place] [address] AT [facility] & [address] [address] Danisha Garcia [facility] 2023-12-15 09:15:00 Images from the original note were not included. Venipuncture collection performed by clean technique on the right anticubitus. Total of 1 attempts were made. Slight pressure and a bandage/dressing were applied to the site(s). The patient experienced no complications. The following specimens were processed according to instructions and sent to [facility] laboratories per lab order on 12/15/2023 : LT BLUE SST 1 RED LAV 2 PPT DK GREEN (LiHep) DK GREEN (SodH) REDMOND DK BLUE (K2) DK BLUE (S) ACD Blood Culture NIPT/NTD Patient has been identified by and name and was provided with cup, antiseptic towelette, and clean catch instructions. 2 urine specimen(s) sent. Unpreserved 2 Urine Culture Aptima tube Other urine [facility] 2023-12-11 15:15:42 Lm for patient for clarification. One touch strips not Rx'ed, we have freestyle lite strips RX. Mireya Shea RN [facility] 2023-12-11 14:04:30 Evelia Casas is a 58 year old female Pt is calling to request provider to send a prescription requesting strips for one touch meter, Pt states, pharmacy is requesting prescription, Please advise [facility] [place], [place] - [address] [place] [address] Drive AT [facility] & Sary Au Sandi Rapp [facility] 2023-12-10 11:20:59 RX sent to pharmacy on file. [facility] 2023-12-10 11:14:26 Evelia Casas is a 58 year old female Pt needing one touch strips called in for meter , uses 4 strips a day For insurance purposes Please advise, thank you Danisha Garcia [facility] 2023-12-10 11:02:41 Please see other TE dated 12/10/2023. Lesia Glez RN [facility] 2023-12-10 11:01:44 Left detailed message, pt to call B to have her medication transferred as this medication was sent to another B, Pt to also have pharmacy send us PA request. T [facility] 2023-12-10 10:50:36 Evelia Casas is a 58 year old female Patient states that she is needing a prior authorization for the sertraline 100 mg and enalapril 2.5 mg. [facility] [phone] Jeanne Holguin [facility] 2023-12-10 10:42:03 Evelia Casas is a 58 year old female is calling in requesting for acyclovir to be transferred to [facility] [address] AT [facility] & [address] [address] . Sujata Quintana [facility] 2023-12-10 08:35:05 Images from the original note were not included. Refill request refilled per ambulatory refill guidelines. Notes: Name from pharmacy: Acyclovir 200mg Capsule Will file in chart as: ACYCLOVIR 200 mg capsule Possible duplicate: Hover to review recent actions on this medication Sig: TAKE TWO (2) CAPSULE(S) BY MOUTH IN THE MORNING AND 2 CAPSULES IN THE EVENING. Disp: 60 capsule (Pharmacy requested: 60 Each) Refills: Not specified Start: 12/09/2023 Class: eRX For: Herpes, vulvar Last ordered: 1 year ago (11/24/2022) by Justina Melendez NP Last refill: 10/09/2023 Rx #: [id number] Anti-Herpes Dfiefg3012/09/2023 08:19 PM Protocol Details Valid encounter within last 12 months Herpes simplex virus (HSV) is on problem list To be [place] at: [facility] [place] [address] AT [address] Last Refilled: 10/09/2023 Recent Visits Date Type Provider Dept 09/07/23 Office Visit Justina Melendez NP [facility] 06/08/23 Office Visit Justina Melendez NP [facility] 04/22/23 Office Visit Marshall Werner MD [facility] 01/07/23 Office Visit Justina Melendez NP [facility] 01/07/23 Office Visit Justina Melendez NP [facility] 09/10/22 Office Visit Justina Melendez NP [facility] Showing recent visits within past 540 days with a meds authorizing provider and meeting all other requirements Future Appointments Date Type Provider Dept 12/15/23 Appointment [address] Melendez NP [facility] Showing future appointments within next 150 days with a meds authorizing provider and meeting all other requirements Ashlyn Flower MA [facility] 2023-12-09 10:19:28 Images from the original note were not included. Notes: Name from pharmacy: Atorvastatin 80mg Tablet Will file in chart as: ATORVASTATIN 80 mg tablet Possible duplicate: Hover to review recent actions on this medication Sig: TAKE ONE (1) TABLET(S) BY MOUTH AT BEDTIME. Disp: 90 tablet (Pharmacy requested: 90 Each) Refills: Not specified Start: 12/08/2023 Class: eRX For: Dyslipidemia Last ordered: 1 week ago (12/02/2023) by Justina Melendez NP Last refill: 09/06/2023 Rx #: [id number] Cardiovascular: Antilipid - HMG-CoA Reductase Inhibitors Maviah7612/08/2023 03:50 PM Protocol Details Valid encounter within last 12 months Total Cholesterol within 360 days LDL within 360 days HDL within 360 days Triglycerides within 360 days AST in normal range and within 360 days ALT in normal range and within 360 days To be filled at: [facility] [place] [address] AT [address] Last Refilled: 12/02/2023-pharmacy change. Last Rx was sent to [facility] Recent Visits Date Type Provider Dept 09/07/23 Office Visit Justina Melendez NP [facility] 06/08/23 Office Visit Justina Melendez NP [facility] 04/22/23 Office Visit Marshall Werner MD [facility] 01/07/23 Office Visit Justina Melendez NP [facility] 01/07/23 Office Visit Justina Melendez NP [facility] 09/10/22 Office Visit Justina Melendez NP [facility] Showing recent visits within past 540 days with a meds authorizing provider and meeting all other requirements Future Appointments Date Type Provider Dept 12/15/23 App[address] Mel[address] [facility] Showing future appointments within next 150 days with a meds authorizing provider and meeting all other requirements Ashlyn Flower MA [facility] 2023-12-04 12:13:13 Returned pt call, no answer. Left detailed VM advising pt she [facility] to appt if she prefers. Confirmed [facility] lab orders are updated. Yin Prakash RN [facility] 2023-12-04 11:32:24 Evelia Casas is a 58 year old female Pt is calling to speak with a nurse regarding lab orders, Pt is asking if labs may be completed on the same day as her transplant appointment, Pt states, she is scheduled for labs on 12/14 but normally goes to [facility], Pt is asking which provider ordered labs, Please advise [phone] (home) Sandi Rapp [facility] 2023-12-02 05:49:37 Addended by: NORA BARRIOS, JUSTINA Childers on: 12/02/2023 05:49 AM Modules accepted: Orders [facility] 2023-11-26 15:30:00 Patient presented with specimen for drop-off and was identified by and name. Collection information/ total volume were documented accordingly. The following specimens were sent to [facility] laboratories per lab order on 11/26/2023 : 24 hour urine Random urine 3 Stool Swab Other [facility] 2023-11-24 15:52:35 Per hydrocortisone request: Evelia Casas (Mock: [id number]) Outcome Available without authorization. Hydrocortisone 10MG tablets Per sensor request: Evelia Csaas (Mock: [id number]) Authorization already on file for this request. Drug FreeStyle Karla 3 Sensor Both medications should be available at pharmacy for pickup. Mireya Shea RN [facility] 2023-11-24 15:44:51 Evelia Casas is a 58 year old female Pt calling stating she is needing PA for freestyle karla 3 kit sent to [facility] pharmacy in [place] Lamine Stanley [facility] 2023-11-24 15:40:57 Evelia Casas is a 58 year old female Pt calling regarding rx hydrocortisone 10 mg tablet states she is needing PA for a 30day supply. Sent to pharmacy. Pt has one pill left. [facility] 2023-11-24 11:29:04 RX sent in for 30d supply. PA has been requested. Noted about ER visit. Any further elevated bg readings please return to ER. T [facility] 2023-11-24 10:57:56 Pt is requesting a rx change for insulin glargine U-300 conc (TOUJEO SOLOSTAR U-300 INSULIN) 300 unit/mL (1.5 mL) InPn. Pt states that a 90 day rx was ordered but it's too expensive. Pt is requesting a 30 day rx. Pt also requesting a PA on Blood-Glucose Sensor (FREESTYLE KARLA 3 SENSOR) Debbie. Pt states that she was seen in the ER last night for elevated glucose levels. Pt's current glucose level is 420. Pls advise. Lindsay Waters [facility] 2023-11-23 23:41:51 Pt discharged with diagnosis of uncontrolled type 1 diabetes mellitus with hyperglycemia, encouraged hydration. Printed and verbal instructions reviewed with and given to pt. Pt. verbalized understanding of teaching and recommended follow-up. Denies questions or concerns at this time. Pt ambulatory at discharge. Appears in no apparent distress. No ataxia noted. Pt accompanied by sister. Advised to seek medical attention for new/prolonged/worsening of symptoms, Symptoms improved. No adverse reaction to meds given in ER noted upon discharge PIV d'cd, dressing to site, catheter in tact. Christiana Flower RN [facility] 2023-11-23 22:45:34 Provider at bedside [facility] 2023-11-23 21:34:00 Provider at bedside [facility] 2023-11-23 20:04:59 Pt arrived ambulatory without assist. Pt c/o high blood glucose for 2-3 days. BG 351 in Triage. Pt home monitor reading 459 in triage. Shy Conway RN [facility] 2023-11-23 18:13:46 Evelia Casas is a 58 year old female is calling wanting to speak with a nurse. Per pt she has been running high sugars but is unable to check them right now. Pt states she dipped her urine and is running ketones. Called out to Dr professional bass fisher Lucina Ro and she took the call Barby Vora 11/23/2023 6:14 PM Barby Vora [facility] 2023-11-20 07:43:11 TAMMY 11/17/2023 NOV 04/12/2024 hydrocortisone 10 mg tablet 225 tablet 3 Sent RX 11/17/2023 With 3 additional refill to pharmacy on file Danyell Grey MA [facility] 2023-11-19 10:09:25 Images from the original note were not included. LVM to call clinic regarding Results and recommendations , also placed in Griffin Quigley MD P Cardiology Nurse NT-proBNP stable. Direct LDL at goal 68. CK levels normal. Magnesium levels normal. Continue the current cardiac medications without any further changes. T Kristina Briceno RN [facility] 2023-11-19 08:32:16 Images from the original note were not included. [facility] 2023-11-17 13:00:00 Images from the original note were not included. Venipuncture collection performed by clean technique on the right anticubitus. Total of 2 attempts were made. Slight pressure and a bandage/dressing were applied to the site(s). The patient experienced no complications. The following specimens were processed according to instructions and sent to [facility] laboratories per lab order on 11/17/2023 : LT BLUE SST 3 RED LAV 2 PPT DK GREEN (LiHep) DK GREEN (SodH) REDMOND DK BLUE (K2) DK BLUE (S) ACD Blood Culture NIPT/NTD Pt couldnt void, sent home with sterile urine collection kit Madhuri Cota 11/17/2023 1:30 PM [facility] 2023-11-16 15:42:54 Information from clinical pharmacist was that ranolazine can cause increase in tacrolimus levels. Called the pt and let her know. [facility]. Orders updated. Russ Arcos RN [facility] 2023-11-16 15:20:47 Referral has been renewed. 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 Also on sliding scale with aspart Discuss with endo with adjustments Hypoglycemic protocol Patient had blood work done today Continue levothyroxine for hypothyroidism Recent Visits Date Type Provider Dept 09/07/23 Office Visit Justina Melendez NP [facility] 06/08/23 Office Visit Justina Melendez NP [facility] 04/22/23 Office Visit Marshall Werner MD [facility] 01/07/23 Office Visit Justina Melendez NP [facility] Family [facility] 01/07/23 Office Visit Justina Melendez NP [facility] Family [facility] 09/10/22 Office Visit Justina Melendez NP [facility] Family [facility] 06/10/22 Office Visit Justina Melendez NP [facility] Family [facility] Showing recent visits within past 540 days with a meds authorizing provider and meeting all other requirements Future Appointments Date Type Provider Dept 12/08/23 Appointment [address] Mel[address] [facility] Family [facility] Showing future appointments within next 150 days with a meds authorizing provider and meeting all other requirements [facility] 2023-11-16 13:41:52 Patient has appt with Dr doan on 11/16 insurance is requiring authorized referral. Please assist Faye Law [facility] 2023-11-13 10:28:54 Evelia Casas is a 58 year old female patient calling to see if she can take her Tacrolimus and Ranolazine 500 mg together? Please call [phone] Bobbi Vasquez [facility] 2023-11-08 07:22:05 ----- Message from Griffin Guevara MD sent at 11/03/2023 12:33 PM CDT ----- I saw her today. She reports that she has not been taking Lexapro for last one month. Hence I started her on Ranexa 500 mg BiD. I asked to reach out to you regarding anxiety meds if needed. As we discussed before, Sertraline does not interact with Ranexa. But she cannot go back to Lexapro. [facility] 2023-11-06 08:18:59 Attempted to return patients call, no answer. [facility] Beatriz Campa MA 11/06/2023 8:20 AM Beatriz Campa MA [facility] 2023-11-05 16:03:05 Evelia Casas is a 58 year old female and is returning a missed call. She stated that she cannot take the Lexapro anymore due to a new heart medication (ranolazine) she is on from her streets and buildings decorator. Pt was asking for a new prescription for another medication to help with her anxiety that won't interact with the new medicine. Her streets and buildings decorator told her he had sent a message for a med change to Nurse Melendez's office and pt wanted to follow-up. Giovana Montelongo [facility] 2023-11-05 11:48:06 Call placed to pt, ivanm to discuss which medication she is now taking as message states she is not taking Lexapro and no other medication is listed for anxiety. Lesia Glez RN [facility] 2023-11-05 11:29:08 KERRI LANDON MA 11/05/2023 11:29 AM Kerri Landon MA [facility] 2023-11-05 11:21:18 Pt calling to check status of new rx for anxiety since she is not taking the Lexapro. Please Advise. [facility] [place] [address] [facility] [id number] Dora Quesada [facility] 2023-11-05 09:09:[address] Guevara's note. They will remove escitalopram from patient's list so they she cannot refill. No further questions. Candy Dorantes RN [facility] 2023-11-04 16:26:43 I an aware of the interaction. Hence I did not started in the last office visit. Per patient she has not been taking the citalopram for the last 1 month. I also messaged the PCP to change citalopram to another antianxiety medication that does not interact with Ranexa. Please ask pharmacy to take her off the citalopram completely in the future. [facility] 2023-11-04 15:51:03 Evelia Casas is a 58 year old female Zoe from [facility] called in stating ranolazine 500 mg 12 hr tablet was ordered but it interacts with the [id number] she is currently asking for clarification. please advise [facility], [place] - [address] Kelley Singh [facility] 2023-11-04 15:02:[address] Guevara for review. Candy Dorantes RN [facility] 2023-11-03 13:05:02 Evelia Casas is a 58 year old female Pt pharmacy called in stating ranolazine 500 mg 12 hr tablet was ordered but it interacts with the [id number] she is currently on pharmacy is asking for clarification. please advise [facility] [place], [place] - [address] Machelle Flower [facility] 2023-10-02 10:00:00 Images from the original note were not included. Venipuncture collection performed by clean technique on the right forearm(s). Total of 1 attempts were made. Slight pressure and a bandage/dressing were applied to the site(s). The patient experienced no complications. The following specimens were processed according to instructions and sent to [facility] laboratories per lab order on 10/02/2023: LT BLUE SST 1 1 Estra RED 1 LAV 2 PPT 2 DK GREEN (LiHep) DK GREEN (SodH) REDMOND DK BLUE (K2) DK BLUE (S) ACD Blood Culture NIPT/NTD Patient has been identified by and name and was provided with cup, antiseptic towelette, and clean catch instructions. 2 urine specimen(s) sent. Unpreserved 2 Urine Culture Aptima tube Other urine T [facility] 2023-09-28 15:14:48 Called the pt to make sure that she is getting better from the UTI she had on 09/23/2023. She is still taking the cefdinir and is feeling better and culture shows it is susceptible to that antibiotic. [facility] 2023-09-23 13:30:56 Patient dc home with UTI. Take rx as prescribed. Follow up with pcp. Verbalized understanding. Signed paper work. Petar Gillespie RN [facility] 2023-09-23 11:02:17 09/23/23 1055 09/23/23 1057 09/23/23 1059 Orthostatic Vitals BP 122/78 118/80 129/88 BP Location Right arm Right arm Right arm Position Lying Sitting Standing Pulse 90 95 104 T Katy Angelo RN [facility] 2023-09-23 09:48:01 Pt presents with concern for UTI.. Pt has frequency, urgency, burning and difficulty urinating for 2 days. Pt denies any abd or back pain, no reported fever. [facility] 2023-09-16 18:29:51 Images from the original note were not included. Griffin Guevara MD [place], Ogechukwu, NP Thank you. I verified and Sertraline/ranexa has no interactions. Thank you. Let me know what SSRI are u planning to start so that I can make sure its not interacting with Ranexa. I will go ahead and change it. Been attempting to call the patient to taper her off and start new SSRI. LVM. Thanks, will do. Patient is having chronic stable angina. She is unable to tolerate antianginal due to low blood pressure. She is a good candidate for taking Ranexa 500 twice daily however it interacts with citalopram by causing QT prolongation. Please consider changing citalopram to a different antianxiety medications that does not interact with Ranexa. She has an upcoming appointment next month. Once the changes made please let me know. [facility] 2023-09-09 15:28:23 Call placed to pharmacy and verified medication as follows: Disp Refills Start End LIZZY escitalopram oxalate (LEXAPRO) 10 mg tablet 90 tablet 3 09/09/2023 -- No Sig: Take 1 tablet by mouth in the morning. Sent to pharmacy as: escitalopram 10 mg tablet (Lexapro) Class: eRX Route: Oral Order: [id number] Date/Time Signed: 09/09/2023 14:12 E-Prescribing Status: Receipt confirmed by pharmacy (09/09/2023 2:12 PM CDT) Lesia Glez RN [facility] 2023-09-09 14:48:22 Received call from Arleen at [address] AT [facility] & [facility] Stating pt has an active RX for Citalopram and she has a new medication, escitalopram oxalate (LEXAPRO) 10 mg tablet 10 mg, Oral, DAILY She wants to make sure pt is not taking both. Please advise [phone]. Yair Day [facility] 2023-09-09 13:47:50 Pt calling to check status of the rx. Dora Quesada [facility] 2023-09-08 10:44:03 Routing to provider. Mireya Hernandez MA [facility] 2023-09-08 10:35:42 Evelia Casas is a 58 year old female Pt calling in stating pt was seen yesterday and Dr was supposed to have perscribed and sent in 2 new prescription celapram med and Tylenol with codeine. Please advise. [phone] (home) [phone] (work) [facility], [place] - [address] [facility] [address] [facility] [id number] Sandi Guzman [facility] 2023-09-01 08:56:46 Images from the original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
[2024-07-05] MEDS ORDERED: ONDANSETRON 4 MG/2 ML VIAL ONE (04:22)
[2024-07-05] MEDS ORDERED: HYDROMORPHONE HCL 1 MG/ML INJ ONE (04:22)
[2024-07-05] MEDS ORDERED: TENECTEPLASE 50 MG/10 ML VIAL IV ONE (04:23)
[2024-07-05] MEDS ORDERED: HYDROCORTISONE SUC 100 MG INJ ONE (04:23)
[2024-07-05] MEDS ORDERED: NA CHLORIDE 0.9% 1,000 ML ONE (04:23)
--- NOTE | 2024-07-05 04:38 | EDPHYS ---
Physician Documentation [facility] Name: Marynan Casas Age: 59 yrs Sex: Female : 1965 Arrival Date: 07/05/2024 Time: 03:55 Bed 3 Private MD: ED Physician Liam Hernandez HPI: 07/05 04:14 This 59 yrs old Female presents to ER via Unassigned with complaints of chest sp4 pain . 04:17 59-year-old female presents with acute onset moderate to severe chest pain 30 minutes sp4 prior to arrival. Patient has history of CABG, coronary artery disease, peripheral arterial disease, diabetes mellitus,. Additional history includes pancreatic transplant and kidney transplant at [facility] several years ago . Medication list at home includes acyclovir 200 mg once a day, tacrolimus 0.5 mg 2 tablets in the morning 1 tablet in the evening, mycophenolate 250 mg 1 capsule in the morning 1 capsule in the evening, hydrocortisone 10 mg 2 tablets in the morning half a tablet at 3 PM, Synthroid 50 mcg 1 tablet daily, Ranexa 500 mg twice a day, enalapril 2.5 mg in the evening, atorvastatin 80 mg in the evening, doxepin 25 mg before bedtime, 81 mg aspirin daily, sertraline daily, aspart insulin before meals, Toujeo insulin before breakfast, medical allergies include morphine and adhesive tape, also iodine allergy. . Historical: - Allergies: 04:10 Iodinated Contrast Media - IV Dye; ha1 04:10 Morphine; ha1 04:10 Tape; ha1 - Home Meds: 04:10 pantoprazole 40 mg Oral TbEC 1 tab 2 times per day [Active]; Aspirin Oral [Active]; ha1 - PMHx: 04:10 CVA; Diabetes - IDDM; resolved; Hypertension; resolved; Renal Disease; resolved; ha1 - Immunization history:: Adult Immunizations unknown. - Infectious Disease History:: Denies. - Family history:: not pertinent. - Social history:: Smoking status: unknown. ROS: 04:24 Constitutional: Negative for fever, chills, and weight loss, positive for moderate to sp4 severe midsternal chest pain 04:24 All other systems are negative, Exam: 04:24 Constitutional: This is a well developed, well nourished patient who is awake, alert, sp4 moderate distress secondary to pain. Head/Face: Normocephalic, atraumatic. Eyes: Pupils equal round and reactive to light, extra-ocular motions intact. Lids and lashes normal. Conjunctiva and sclera are not injected. Cornea within normal limits. Periorbital areas with no swelling, redness, or edema. ENT: Nares patent. No nasal discharge, no septal abnormalities noted. Tympanic membranes are normal and external auditory canals are clear. Oropharynx with no redness, swelling, or masses, exudates, or evidence of obstruction, uvula midline. Mucous membranes moist. Neck: Trachea midline, no thyromegaly or masses palpated, and no cervical lymphadenopathy. Supple, full range of motion without nuchal rigidity, or vertebral point tenderness. Chest/axilla: Normal chest wall appearance and motion. Nontender with no deformity. No lesions are appreciated. Cardiovascular: Regular rate and rhythm with a normal S1 and S2. No gallops, murmurs, or rubs. Normal PMI, no JVD. No pulse deficits. Respiratory: Lungs have equal breath sounds bilaterally, clear to auscultation and percussion. No rales, rhonchi or wheezes noted. No increased work of breathing, no retractions or nasal flaring. Abdomen/GI: Soft, with normal bowel sounds. No distension or tympany. No guarding or rebound. No evidence of tenderness throughout. Back: No spinal tenderness. No costovertebral tenderness. Skin: Warm, dry with normal turgor. Normal color with no rashes, no lesions, and no evidence of cellulitis. MS/ Extremity: Pulses equal, no cyanosis. Neurovascular intact. Full, normal range of motion. Neuro: Awake and alert, GCS 15, oriented to person, place, time, and situation. Cranial nerves II-XII grossly intact. Motor strength 5/5 in all extremities. Sensory grossly intact. Psych: Awake, alert, with orientation to person, place and time. Behavior, mood, and affect are within normal limits 04:27 ECG was reviewed by the Attending Physician. EKG 0 357 atrial fibrillation with RVR sp4 rate 113, ST elevation lead V3 and aVF, significant ST depression aVL, V2, EKG consistent with acute inferior IN. Vital Signs: 03:55 BP 113 / 86; Pulse 114; Resp 18 S; Temp 97.2; Pulse Ox 98% on 2 lpm NC; Weight 61 kg; ha1 Height 5 ft. 0 in. ; 04:15 BP 113 / 86; Pulse 77; Resp 18; Pulse Ox 100% on 2 lpm NC; Pain 8/10; br2 04:45 BP 98 / 64; Pulse 68; Resp 18 S; Pulse Ox 100% on 2 lpm NC; br2 04:54 BP 103 / 69; Pulse 67; Resp 18 S; Pulse Ox 98% on 2 lpm NC; ha1 03:55 Body Mass Index 26.26 (61.00 kg, 152.4 cm) ha1 04:15 Pain Scale: Adult br2 [place] Coma Score: 04:24 Eye Response: spontaneous(4). Motor Response: obeys commands(6). Verbal Response: sp4 oriented(5). Total: 15. MDM: 04:08 Medical Screening Exam initiated sp4 04:38 Differential diagnosis: acute myocardial infarction, acute pericarditis, anxiety, sp4 coronary artery disease chest wall pain, congestive heart failure. HEART Score: History: Highly Suspicious (2), ECG: Significant ST-deviation (2), Age: > 45 and < 65 years (1), Risk Factors: > or = 3 Risk factors for atherosclerotic disease (2), Troponin: < or = 1 x Normal Limit (0), Total Score = 7. Data reviewed: vital signs, nurses notes, EMS record, old medical records, lab test result(s), EKG, radiologic studies, plain films. ED course: Patient was ordered and administered tenecteplase. Consent was obtained from patient's sister. . 07/05 04:03 Order name: Basic Metabolic Panel 4 07/05 04:03 Order name: CBC with Diff; Complete Time: 05:02 sp4 07/05 04:03 Order name: LFT's sp4 07/05 04:03 Order name: Magnesium sp4 07/05 04:03 Order name: NT PRO-BNP 4 07/05 04:03 Order name: PT-INR sp4 07/05 04:03 Order name: Troponin HS 4 07/05 04:44 Order name: PTT, Activated Partial Thromb EDMS 07/05 04:44 Order name: T4 Free EDMS 07/05 04:44 Order name: Thyroid Stimulating Hormone EDMS 07/05 04:03 Order name: XRAY Chest (1 view) sp4 07/05 04:03 Order name: Cardiac monitoring; Complete Time: 04:41 sp4 07/05 04:03 Order name: EKG - Nurse/Tech; Complete Time: 04:41 sp4 07/05 04:03 Order name: IV Saline Lock; Complete Time: 04:41 sp4 07/05 04:03 Order name: Labs collected and sent; Complete Time: 04:41 sp4 07/05 04:03 Order name: O2 Per Protocol; Complete Time: 04:41 sp4 07/05 04:03 Order name: O2 Sat Monitoring; Complete Time: 04:41 sp4 EC:57 Rate is 113 beats/min. Rhythm is irregularly irregular, A fib with Rapid ventricular sp4 response. QRS [place] is Normal. QRS interval is normal. QT interval is normal. T waves are Normal. ST Segment is elevated in leads III, aVF. ST Segment is depressed in leads aVL, V2, 2-5mm. Clinical impression: Inferior IN - acute. Interpreted by me. Reviewed by me. Administered Medications: 04:12 Drug: Ondansetron IVP 4 mg IVP once; over 2 minutes Route: IVP; Site: right forearm; ha1 04:14 Drug: HYDROmorphone IVP 1 mg IVP once Route: IVP; Site: right forearm; ha1 05:00 Follow up: Response: No adverse reaction br2 04:16 Drug: Solu-CORTEF IVP 100 mg IVP once Route: IVP; Site: right forearm; ha1 05:00 Follow up: Response: No adverse reaction br2 04:25 Drug: Tenecteplase IV (Administer 10 ml NS flush BEFORE and AFTER tenecteplase) 35 mg ha1 IV at calculated rate once {Co-Signature: br2 (Brittni Rivera RN).} Route: IV; Rate: calculated rate; Site: right forearm; 05:21 Follow up: Response: No adverse reaction; IV Intake: 7ml br2 04:40 Drug: NS 0.9% IV 1000 ml IV at 125 ml/hr Per protocol; to be given as a bolus over 60 ha1 minutes Route: IV; Rate: 125 ml/hr; Site: right forearm; 05:19 Follow up: Response: No adverse reaction; IV Status: Infusion continued upon transfer; br2 IV Intake: 75ml 04:51 Drug: NS 0.9% IV 500 ml 500 ml IV at 1 bolus once; to be given as a bolus over 30 ha1 minutes Volume: 500 ml; Route: IV; Rate: 1 bolus; Site: right forearm; 05:18 Follow up: IV Status: Infusion continued; IV Intake: 400ml br2 04:58 Drug: Diltiazem IV 5 mg/hr IV at calculated rate See Administration Instructions; br2 (standard dilution 125 mg diltiazem mixed in 125 mL NS; final concentration 1mg/mL). Recommended max rate 15 mg/hr; Titrate 5 mg/hr as often as every 15 minutes to achieve goal (see titration policy); Goal parameter HR less than 100 bpm Route: IV; Rate: calculated rate; Site: left antecubital; 05:18 Follow up: Response: No adverse reaction; IV Status: Infusion continued; IV Intake: 1ml br2 Disposition: 04:36 Critical Care:. sp4 Disposition Summary: 07/05/24 04:38 Transfer Ordered Notes: Transfer Location: [facility] sp4 Reason: Higher level of care sp4 Condition: Stable sp4 Problem: new sp4 Symptoms: have improved sp4 Accepting Physician: Accepting to [facility] for STEMI (07/05/24 05:22) br2 Diagnosis - ST elevation (STEMI) myocardial infarction of inferior wall sp4 - Acute IN sp4 Forms: - Medication Reconciliation Form sp4 - SBAR form sp4 Critical care time excluding procedures: 04:36 Critical care time: Bedside Care: 36 minutes, Consultation: 12 minutes, Family sp4 Intervention: 12 minutes. Total time: 60 minutes Signatures: Dispatcher [employer] EDMS Marisa Gudino RN RN ha1 Liam Hernandez MD MD sp4 Brittni Rivera RN RN br2 Brittni Rivera RN br2 Corrections: (The following items were deleted from the chart) 04:04 04:04 BASIC METABOLIC PANEL+C.LAB.BRZ ordered. EDMS EDMS 04:04 04:04 CBC+H.LAB.BRZ ordered. EDMS EDMS 04:04 04:04 HEPATIC FUNCTION+C.LAB.BRZ ordered. EDMS EDMS 04:04 04:04 MAGNESIUM+C.LAB.BRZ ordered. EDMS EDMS 04:04 04:04 PROBNP+C.LAB.BRZ ordered. EDMS EDMS 04:04 04:04 PROTIME (+INR)+COAG.LAB.BRZ ordered. EDMS EDMS 04:04 04:04 Troponin High Sensitivity+C.LAB.BRZ ordered. EDMS EDMS 04:04 04:04 Chest Single View+RAD.RAD.BRZ ordered. EDMS EDMS 04:43 04:10 PTT, ACTIVATED+COAG.LAB.BRZ ordered. EDMS EDMS 04:44 04:11 THYROID STIMULAT HORMONE+C.LAB.BRZ ordered. EDMS EDMS 04:44 04:11 T4 FREE+C.LAB.BRZ ordered. EDMS EDMS 05:22 04:38 Accepting to [facility] for STEMI sp4 br2
--- NOTE | 2024-07-05 04:38 | ER ---
Nurse's Notes [facility] Name: Maryann Casas Age: 59 yrs Sex: Female : 1965 Arrival Date: 07/05/2024 Time: 03:55 Bed 3 Private MD: Diagnosis: ST elevation (STEMI) myocardial infarction of inferior wall;Acute [place] Presentation: 07/05 03:55 Chief complaint: Patient states: WOKE UP FEELING CHEST PAIN. ON OUR ARRIVAL SHE WAS ha1 DIAPHORETIC. GLUCOSE LEVEL 72. 03:55 Coronavirus screen: Client denies travel out of the [place] in the last 14 days. Ebola ha1 Screen: No symptoms or risks identified at this time. Initial Sepsis Screen: Does the patient meet any 2 criteria? No. Patient's initial sepsis screen is negative. Does the patient have a suspected source of infection? No. Patient's initial sepsis screen is negative. Risk Assessment: Do you want to hurt yourself or someone else? Patient reports no desire to harm self or others. Onset of symptoms was July 05, 2024. 03:55 Method Of Arrival: EMS: [facility] ha1 03:55 Acuity: ADDIS 2 ha1 Triage Assessment: 03:55 General: Appears uncomfortable, Behavior is cooperative. Pain: Complains of pain in ha1 chest Pain currently is 9 out of 10 on a pain scale. Quality of pain is described as throbbing, Pain began suddenly, 30 min ago. Neuro: Level of Consciousness is awake, alert, obeys commands, Oriented to person, place, time, situation. Cardiovascular: Reports chest pain, Heart tones S1 S2 present Capillary refill < 3 seconds Patient's skin is warm and dry. Respiratory: Airway is patent Respiratory effort is even, unlabored, Respiratory pattern is regular, symmetrical. GI: Abdomen is round non-distended. Historical: - Allergies: 04:10 Iodinated Contrast Media - IV Dye; ha1 04:10 Morphine; ha1 04:10 Tape; ha1 - Home Meds: 04:10 pantoprazole 40 mg Oral TbEC 1 tab 2 times per day [Active]; Aspirin Oral [Active]; ha1 - PMHx: 04:10 CVA; Diabetes - IDDM; resolved; Hypertension; resolved; Renal Disease; resolved; ha1 - Immunization history:: Adult Immunizations unknown. - Infectious Disease History:: Denies. - Family history:: not pertinent. - Social history:: Smoking status: unknown. Screenin:55 [facility] ED Fall Risk Assessment (Adult) History of falling in the last 3 months, ha1 including since admission No falls in past 3 months (0 pts) Confusion or Disorientation No (0 pts) Intoxicated or Sedated No (0 pts) Impaired Gait No (0 pts) Mobility Assist Device Used No (0 pt) Altered Elimination No (0 pt) Score/Fall Risk Level 0 - 2 = Low Risk Oriented to surroundings, Maintained a safe environment, Educated pt \T\ family on fall prevention, incl call for assistance when getting out of bed, Hourly rounding (assess needs \T\ fall precautionary measures) done. Abuse screen: Denies threats or abuse. Denies injuries from another. Nutritional screening: No deficits noted. Tuberculosis screening: No symptoms or risk factors identified. Assessment: 04:50 Reassessment: Patient and/or family updated on plan of care and expected duration. Pain ha1 level reassessed. Patient is alert, oriented x 3, equal unlabored respirations, skin warm/dry/pink. Patient states feeling better. Patient states symptoms have improved. Vital Signs: 03:55 BP 113 / 86; Pulse 114; Resp 18 S; Temp 97.2; Pulse Ox 98% on 2 lpm NC; Weight 61 kg; ha1 Height 5 ft. 0 in. ; 04:15 BP 113 / 86; Pulse 77; Resp 18; Pulse Ox 100% on 2 lpm NC; Pain 8/10; br2 04:45 BP 98 / 64; Pulse 68; Resp 18 S; Pulse Ox 100% on 2 lpm NC; br2 04:54 BP 103 / 69; Pulse 67; Resp 18 S; Pulse Ox 98% on 2 lpm NC; ha1 03:55 Body Mass Index 26.26 (61.00 kg, 152.4 cm) ha1 04:15 Pain Scale: Adult br2 [place] Coma Score: 04:24 Eye Response: spontaneous(4). Motor Response: obeys commands(6). Verbal Response: sp4 oriented(5). Total: 15. ED Course: 03:55 Patient has correct armband on for positive identification. Placed in gown. Bed in low ha1 position. Call light in reach. Side rails up X2. Adult w/ patient. 03:55 Maintain EMS IV. Dressing intact. Site clean \T\ dry. Gauge \T\ site: 20 gauge RFA. lara 1 03:58 Patient arrived in ED. kmf 04:03 Liam Hernandez MD is Attending Physician. sp4 04:05 Kandi Hawley, RN is Primary Nurse. kd3 04:10 initiated transfer with [facility] \T\ [facility] 0410. Requested to launch life flight kmf as well. 04:10 Missed attempt(s): 24 gauge in left forearm. Bleeding controlled, band aid applied, ha1 catheter tip intact. 04:19 Triage completed. ha1 04:41 Basic Metabolic Panel Sent. ha1 04:41 CBC with Diff Sent. ha1 04:41 LFT's Sent. ha1 04:41 Magnesium Sent. ha1 04:41 NT PRO-BNP Sent. ha1 04:41 PT-INR Sent. ha1 04:41 Troponin HS Sent. ha1 04:54 XRAY Chest (1 view) In Process Unspecified. EDMS 04:55 Pt was accepted to [facility]. Keisha initiated life lfight \T\0442 eta 7 kmf mins to us. Liseth Michael accepted the pt \T\ 0442. Number for nurse to nurse report [id number]. 05:21 No provider procedures requiring assistance completed. Patient transferred, IV remains br2 in place. Administered Medications: 04:12 Drug: Ondansetron IVP 4 mg IVP once; over 2 minutes Route: IVP; Site: right forearm; ha1 04:14 Drug: HYDROmorphone IVP 1 mg IVP once Route: IVP; Site: right forearm; ha1 05:00 Follow up: Response: No adverse reaction br2 04:16 Drug: Solu-CORTEF IVP 100 mg IVP once Route: IVP; Site: right forearm; ha1 05:00 Follow up: Response: No adverse reaction br2 04:25 Drug: Tenecteplase IV (Administer 10 ml NS flush BEFORE and AFTER tenecteplase) 35 mg ha1 IV at calculated rate once {Co-Signature: br2 (Brittni Rivera RN).} Route: IV; Rate: calculated rate; Site: right forearm; 05:21 Follow up: Response: No adverse reaction; IV Intake: 7ml br2 04:40 Drug: NS 0.9% IV 1000 ml IV at 125 ml/hr Per protocol; to be given as a bolus over 60 ha1 minutes Route: IV; Rate: 125 ml/hr; Site: right forearm; 05:19 Follow up: Response: No adverse reaction; IV Status: Infusion continued upon transfer; br2 IV Intake: 75ml 04:51 Drug: NS 0.9% IV 500 ml 500 ml IV at 1 bolus once; to be given as a bolus over 30 ha1 minutes Volume: 500 ml; Route: IV; Rate: 1 bolus; Site: right forearm; 05:18 Follow up: IV Status: Infusion continued; IV Intake: 400ml br2 04:58 Drug: Diltiazem IV 5 mg/hr IV at calculated rate See Administration Instructions; br2 (standard dilution 125 mg diltiazem mixed in 125 mL NS; final concentration 1mg/mL). Recommended max rate 15 mg/hr; Titrate 5 mg/hr as often as every 15 minutes to achieve goal (see titration policy); Goal parameter HR less than 100 bpm Route: IV; Rate: calculated rate; Site: left antecubital; 05:18 Follow up: Response: No adverse reaction; IV Status: Infusion continued; IV Intake: 1ml br2 Medication: 04:50 VIS not applicable for this client. ha1 Intake: 05:18 IV: 1ml; Total: 1ml. br2 05:18 IV: 400ml; Total: 401ml. br2 05:19 IV: 75ml; Total: 476ml. br2 05:21 IV: 7ml; Total: 483ml. br2 Outcome: 04:38 ER care complete, transfer ordered by . sp4 05:21 Transferred by helicopter to [facility], Transfer form completed. X-rays sent br2 w/ patient. 05:22 Condition: improved br2 05:22 Instructed on the need for transfer, Demonstrated understanding of 05:22 Patient left the ED. br2 Signatures: Dispatcher [employer] EDMS Kandi Hawley RN RN kd3 Marisa Gudino RN RN ha1 Lima Hernandez MD MD sp4 Kait Parnell [facility] Brittni Rivera RN RN br2 Brittni Rivera RN br2 Corrections: (The following items were deleted from the chart) 04:24 04:10 initiated transfer with [facility] \\ [facility] [address] [facility] 04:43 04:42 PTT, ACTIVATED+COAG.LAB.BRZ drawn and sent. ha1 EDMS 04:44 04:42 T4 FREE+C.LAB.BRZ drawn and sent. ha1 EDMS 04:44 04:42 THYROID STIMULAT HORMONE+C.LAB.BRZ drawn and sent. ha1 EDMS 04:50 04 03:55 Maintain EMS IV. Dressing intact. Site clean \T\ dry. Gauge \T\ site: 20 gauge lara 1 RFA. ha1
[2024-07-05] MEDS ORDERED: dilTIAZem HCL 25 MG/5 ML VIAL IV ONE (04:43)
[2024-07-05] MEDS ORDERED: NA CHLORIDE 0.9% 500 ML ONE (04:43)
[2024-07-05] MEDS ORDERED: NA CHLORIDE 0.9% 100 ML ONE (04:44)
[2024-07-05 04:57] LABS: Absolute Basophils 0.1 K/uL (0-0.5); Absolute Lymphocytes (CBC) 2.7 K/uL (0.7-4.9); Absolute Monocytes 0.4 K/uL (0.1-1.3); Absolute Neutrophil 3.1 K/uL (1.8-8.0); Basophils % 1.3 % (0-1.3); Eosinophils % 0.8 % (0-4.4); Hematocrit 47.8 % (36.0-45.0); Lymphocytes % 42.7 % (15.3-44.8); MCH 31.8 pg (27.0-35.0); MCHC 33.4 g/dL (32.0-36.0); MCV 95.2 fL (80-100); MPV 7.2 fL (7.6-11.3); Monocytes % 6.8 % (3.3-12.3); Neutrophils % 48.4 % (41.7-73.7); Platelets 207 thou/uL (152-406); RBC Red Blood Cell Count 5.02 M/uL (3.86-4.86); Red Cell Distribution Width 14.4 % (12.1-15.2)
[2024-07-05 05:19] LABS: PT Prothrombin Time 10.8 SECONDS (10-13.0); PTT, Activated Partial Thromb 27.2 SECONDS (27.2-37.4); Protime INR 0.94
[2024-07-05 05:23] LABS: Albumin 3.1 g/dL (3.4-5.0); Albumin/Globulin Ratio 0.9 (1.1-1.8); Anion Gap 7.7 mEq/L (5.0-15.0); Bilirubin Direct 0.2 mg/dL (0-0.2); Bilirubin Indirect, Calculated 0.2 mg/dL (0.2-0.8); Bilirubin Total 0.4 mg/dL (0.2-1.0); Globulin 3.5 g/dL (2.3-3.5); Magnesium 2.1 mg/dL (1.6-2.4); Potassium 3.7 mEq/L (3.5-5.1); Protein, Total 6.6 g/dL (6.4-8.2)
[2024-07-05 05:24] LABS: Thyroid Stimulating Hormone 4.38 uIU/mL (0.358-3.740)
[2024-07-05 05:25] LABS: Troponin High Sensitivity 148.9 pg/mL (<58.9)
[2024-07-05 05:30] VITALS: TEMP 97.2
[2024-07-05 05:35] VITALS: BP 103/69; O2SAT 98
--- NOTE | 2024-07-05 06:13 | RAD REPORT ---
EXAMINATION: Chest Single View CLINICAL HISTORY: CHEST PAIN COMPARISON: None FINDINGS: The lungs are clear. There is no pleural effusion or pneumothorax. The cardiomediastinal silhouette i s without acute process. The osseous structures are without acute process. IMPRESSION: No acute process. RECOMMENDATIONS: Electronically signed by: José Wilde MD 07/05/2024 05:58 AM CDT RP Due to temporary technical issues with the [employer] reporting system, reports are being gaby d by the in-house radiologist without review as a courtesy to ensure prompt reporting the interpreting radiologist is fully responsible for the content of the report. Transcribed Date/Time: 07/05/2024 6:12 AM
--- NOTE | 2024-07-05 10:54 | EKG ---
Test Date: 2024-07-05 Test Time: 03:57:54 Draw Tender: DORI MEASUREMENT RESULTS: Intervals: Rate: 113 ND: QRSD: 82 QT: 310 QTc: 425 [place]: P: ND: QRS: 77 T: 114 INTERPRETIVE STATEMENTS: Atrial fibrillation with rapid ventricular response with premature ventricular or aberrantly conducted complexes Low voltage QRS ST elevation, consider inferior injury or acute infarct ACUTE TN / STEMI Consider right ventricular involvement in acute inferior infarct Abnormal ECG Compared to ECG 04/03/2007 06:51:41 Ventricular premature complex(es) now present Low QRS voltage now present ST (T wave) deviation now present Sinus rhythm no longer present Left-axis deviation no longer present Myocardial infarct finding still present Myocardial infarct finding still present Electronically Signed On 07-05-24 10:54:23 CDT by Javier Schwartz
== END 2024-07-05 05:22 | disposition short-term general hospital (02) ==
LOC: ER 03:55
DX: I21.19 ST elevation (STEMI) myocardial infarction involving other coronary artery of inferior wall (principal); I10 Essential (primary) hypertension; Z86.73 Personal history of transient ischemic attack (TIA), and cerebral infarction without residual deficits; Z95.1 Presence of aortocoronary bypass graft
CPT/HCPCS: 96365; 92977; 93005; 85025; 80048; 36415; 83735; 85610; 80076; 85730; 84443; 84484; 84439; 83880; 71045; 96375; 99285; J3101; J1171; J1720; J2405; J7040; J7030

== ENCOUNTER 2024-07-12 11:41 | Emergency (ER) | payer OTHER ==
--- OUTSIDE RECORDS SUMMARY | 2024-07-12 12:11 | XMS REPORT | Continuity of Care Document ---
Author Name Unknown Address [address] [facility]. [address] [place] [address] [facility] Address [address] [facility] [place] [address] Care Team Providers Care Java Web User Interface Developer Name Role Phone Pcp, Pcp Primary Care Physician Unavailab Di Nelson Anavella Attending Adriano weaver Unavailable [id number] Attending Clinician Unavailable RAFAEL MORALES Attending Clinician Unavailable RAFAEL MORALES Attending Clinician Unavailable AN LATHAM JR Attending Clinician Unavaila DENISE Li Attending Clinician Unavailable DENISE DUKE Attending Clinician Unavailable JESS DOAN Attending Clinician Unavailable JUSTINA MELENDEZ Attending Clinician Unavailab JUSTINA Mcnulty Attending Clinician Unavailab sandra Marte MD, Amena Beauchamp Attending Clinician [phone] Franki LORD, Jess Attending Clinician [phone] Rayo LORD, Rivera Attending Clinician [phone] Mikayla LORD, Monica Attending Clinician [phone] Marilee LORD, Amaya Attending Clinician [phone] AMAYA HUNT Attending Clinician Unavailable [facility], Angelica Aguiar Attending Clinician JEFF Germain Attending Clinician Unavail able JEFF BERNARD Attending Clinician Unavail able Nora BARRIOS, Justina Attending Clinician [phone] GRIFFIN GUEVARAHSandy Attending Clinician Unavaila ble TONY, MEHRDAD Attending Clinician Unavailable Donald Oakes MD Attending Clinician Henry Burks MD, Parker Attending Clinician [phone] Kunal Howe MD Attending Clinician [phone] Doctor Unassigned, [place] Attending Clinician U denis Bond MD, Aldo Esqueda Attending Clinician U Dina Tolliver Attending Clinician Unavailab Rafat Houston Attending Clinician Unavailabl ngozi Jamil PhD, Ev Attending Clinician [phone] EV JAMIL Attending Clinician Unavailable EV JAMIL Attending Clinician Unavailable Unknown, Attending Attending Clinician Unavailab le Lab, Ang - Db Attending Clinician Unavailable Cortez LORD, Mika Attending Clinician [phone] Sharonda Ashley Attending Clinician [phone], Adc Pob Amb Infusion Room Attending Clinician Unavailable Jeff Bernard MD Attending Clinician [phone] [facility], Angelika Swain Attending Clinician Unavail able Jimenez LORD, Rafijessica Garcia Attending Clinician [phone] 2, Adc Lab Attending Clinician Unavailable Omar Weiss MD Attending Clinician [phone] OMAR WEISS Attending Clinician Unavailable OMAR WEISS Attending Clinician Unavailable GRUPO CROUCH Attending Clinician Unavailwiliam Crouch MD, Grupo Swain Attending Clinician [phone] Philip LORD, Floyd Whitfield Attending Clinician [phone] Transplant, Kidney Medicine Attending Clinician Unavailable BRIGITTE MONZON Attending Clinician Unavailable BRIGITTE MONZON Attending Clinician Unavailable Tangela LORD, Brigitte Attending Clinician [phone] Amelia DONIS, Lucina Dan Attending Clinician Unavail able MOHIT CHERRY Attending Clinician Unavailable MOHIT CHERRY Attending Clinician Unavailable Mohit Cherry MD Attending Clinician [phone] Paola LORD, Sendil K.H. Attending Clinician [phone] Debbi LORD, Marshall Attending Clinician [phone] Denise Duke MD Attending Clinician [phone] Doctor Unassigned, [place] Attending Clinician [place] [address], [facility] Lab Attending Clinician Unavailable Amena Marte MD Attending Clinician [phone] AMENA MARTE Attending Clinician Unava Constance Hull Attending Clinician [phone] CARMELA VO Attending Clinician Unavailable Carmela Orellana Attending Clinician [phone] Paola LORD, Sendil K.H. Attending Clinician [phone] Debbi LORD, Marshall Attending Clinician [phone] Franki LORD, Jess Attending Clinician [phone] Milo DONIS, Marta Attending Clinician UnavailBobbi Gomes LCSW Attending Clinician [phone] Vtc-Lab Attending Clinician Unavailable Jimenez LORD, Rafi Garcia Attending Clinician + [phone] Grupo Crouch MD Attending Clinician [phone] Pob, Adc Lab Main Attending Clinician UnavailSumi BONNERW, Kelsey Attending Clinician [phone] ITA CAI Attending Clinician Unavailable ITA CAI Attending Clinician Unavailable OBI-NADIRAMARSHALL SAENZ Attending Clinician Unavailab sandra Bryan [facility], Angelika A Attending Clinician Unavail able MEL VIZCARRA Attending Clinician Unavailable MEL VIZCARRA Attending Clinician Unavailable Rafi Benítez MD Attending Clinician [phone] Petar Collins MD Attending Clinician [phone] Jack Liz Attending Clinician [phone] Mehrdad Duke Attending Clinician [phone] Pieter Law MD Attending Clinician [phone] KRISTIN GRIGGS Attending Clinician Unavailable MICHELLE MCDERMOTT Attending Clinician Unavailable GRUPO JOHNS Attending Clinician Unavailandrew melvin Lab, Ang - Db Attending Clinician Unavailable KRISTYN PULIDO Attending Clinician Unavailable KRISTYN PULIDO Attending Clinician Unavailable Ita Cai DO Attending Clinician [phone] Grupo Johns MD Attending Clinician [phone] Alena Ziegler RN Attending Clinician Bobbi Lama RN Attending Clinician Unavaila DEMI Paredes Attending Clinician Unavailable Sapphire Sepulveda MD Attending Clinician [phone] Demi Pena MD Attending Clinician [phone] MARIOLA CONRAD Attending Clinician Unavailable Michelle Patel Attending Clinician [phone] [facility], [facility] Lab Attending Clinician UnavailAlexandre Burns MD Attending Clinician + [phone] ALEXANDRE KELLY Attending Clinician UnavailALEXANDRE Burns Attending Clinician Unavailwiliam harden Therapist, [facility] Respiratory Attending Clinician Teresita Larry MD Attending Clinician [phone] TERESITA GONZALEZ Attending Clinician UnavailCANDY Forbes Attending Clinician Candy Alarcon MD Bobbi Attending Clinician + EV JORGENSEN Attending Clinician Unavailable Parag LORD, Diann Attending Clinician [phone] PIETER LAW Attending Clinician Unavishnu ilDIANN Alonso Attending Clinician Unavailable 1, Adc Infusion Chair Attending Clinician Henry PERRY, Fortunato Ace Attending Clinician [phone] JORI STEWART Attending Clinician Unavailwiliam Bernard MD, Jeff Mackenzie Attending Clinician [phone] Pat LORD, Jori Bhardwaj Attending Clinician [phone] AUTUMN HAMMER Attending Clinician Unavailable Mary CAD LIBRARIANAutumn Attending Clinician [phone] [place], [facility] Attending Clinician Unavail able RAFI GAONA Attending Clinician Unavailab le Therapy, Clc Covid Infusion Attending Clinician Unavailable Jose Rafael LORD, Dusty Mares Attending Clinician + [phone] Only, [facility] Test Attending Clinician Unavailable Amaya Jensen MD Attending Clinician +[phone] AMAYA JENSEN Attending Clinician UnavailDEVAUGHN Welch Attending Clinician UnavailSAPPHIRE Christie Attending Clinician Unavailable SUE CAMPA Attending Clinician UnavailSue Boyce Attending Clinician [phone] Unknown, Attending Attending Clinician Unavailab Carrillo Esther Attending Clinician [phone] ESTHER MARTINO Attending Clinician Unavailable Constance TELLEZ Attending Clinician Unavailable Adam Fuller MD Attending Clinician [phone] ADAM FULLER Attending Clinician UnavailFORTUNATO Yin Attending Clinician Unavailwiliam harden Nurse, [facility] Pob Immunization Attending Clinician Unavailable Denny Charles DO Attending Clinician [phone] DENNY CHARLES Attending Clinician Unavail able LISA BARRERA Attending Clinician Unavailable Rafael Morales MD Attending Clinician [phone] Yeison Garcia MD, An Attending Clinician [phone] Pc, Adc Echo Room 1 - Attending Clinician ROHIT Noland Attending Clinician Unavailable Ambrocio BLOUNT, Lynette Pinon Attending Clinician + Kev LORD, Wilfrido Attending Clinician [phone] JACKIE CHAN Attending Clinician Unavailable Nic Serrano Attending Clinician [phone] Cristofer DONIS, Patrick Swain Attending Clinician Unavail able JACKIE CHAMBERS Attending Clinician Unavailable Pieter Otero MD Attending Clinician [phone] NIC HO Attending Clinician Unavailabl e Pc, Adc Vascular Room 1 - Attending Clinician Un available Provider, Clc Cardiac Attending Clinician Henry winters 2, Clc Cardiac Proc Room Attending Clinician Brianna boyd 1, [facility] Lab Attending Clinician Unavailable Tomas LORD, Rohit Attending Clinician [phone] Matt Flores MD Attending Clinician [phone] MATT FLORES Attending Clinician UnavailISAAC Quintana Attending Clinician Barry Thompson MD PHD, Isaac Downs Attending Clinicia n Jackie Chan MD Attending Clinician [phone] Delmer LORD, Jm Swain Attending Clinician Unavail able Kendall Levy MD Attending Clinician [phone] Keila Zelaya MD Attending Clinician [phone] Broderick Reynolds DO Attending Clinician [phone] Kaitlin Jefferson MD Attending Clinician [phone] Devaughn Xie Attending Clinician [phone] Salvador Avendaño, Salvador Admitting Clinician U navailable [id number] Admitting Clinician Unavailable RAFAEL MORALES Admitting Clinician Unavailable AN LTAHAM JR Admitting Clinician UnavailRivera Frazier MD Admitting Clinician [phone] RIVERA METZGER Admitting Clinician Unavailable JEFF BERNARD Admitting Clinician Unavail able MOHIT CHERRY Admitting Clinician Unavailable RAFI BENÍTEZ Admitting Clinician Unavailable Rafi Benítez MD Admitting Clinician [phone] SAPPHIRE SEPULVEDA Admitting Clinician Unavailable Sapphire Sepulveda MD Admitting Clinician [phone] JESS DOAN Admitting Clinician Unavailable ITA CAI Admitting Clinician Unavailable DIANN KENDALL Admitting Clinician Unavailable AUTUMN HAMMER Admitting Clinician Unavailable Constance TELLEZ Admitting Clinician Unavailable Rafael Morales MD Admitting Clinician [phone] An Latham MD Admitting Clinician +[phone] Broderick Reynolds DO Admitting Clinician [phone] Payers Payer Name Policy Type Policy Number Effective Date Expirati on Date Source MEDICARE PART A \\T\\ B [id number] 1988 00:00:00 MCR MCR [id number] [employer] Medicare [id number] 2024 00:00:00 WELLMED/AARP MEDICARE ADVANTAGE HMO/POS [id number] 2024 00:00:00 [facility] [id number] 2023 00:00:00 2024 00:00:00 Problems Condition Name Condition Details Condition Category Status Onset Date Resolution Date Last Treatment Date Treating Clinician Comments Source Hypoglycem ia Hypoglycem ia Disease Active 07-08 00:00: 00 Konstantin Easley Paroxysmal A-fib (CMS/HCC) Paroxysmal A-fib (CMS/HCC) Disease Active 07-06 00:00: 00 Konstantin Easley Peripheral vascular disease Peripheral vascular disease Disease Active 07-06 00:00: 00 Konstantin Easley Carotid artery stenosis Carotid artery stenosis Disease Active 07-06 00:00: 00 Konstantin Easley Hepatitis C Hepatitis C Disease Active 07-06 00:00: 00 Konstantin Easley CAD (coronary artery disease) CAD (coronary artery disease) Disease Active 07-05 00:00: 00 Konstantin Easley Kidney transplant recipient Kidney transplant recipient Disease Active 07-05 00:00: 00 Konstantin Easley Pancreas transplant status Pancreas transplant status Disease Active 07-05 00:00: 00 Konstantin Easley Diabetes Diabetes Disease Active 07-05 00:00: 00 Konstantin Easley Adrenal insufficie ncy Adrenal insufficie ncy Disease Active 07-05 00:00: 00 Konstantin Easley Hypothyroi d Hypothyroi d Disease Active 07-05 00:00: 00 Konstantin Easley Coronary artery disease involving kotlik coronary artery of kot[place] heart with other form of angina pectoris Coronary artery disease involving k[place] coronary artery of [place] heart with other form of angina pectoris Disease Active 2022-03 00:00: 00 [facility] Chronic heart failure with preserved ejection fraction Chronic heart failure with preserved ejection fraction Disease Active 2022-03 00:00: 00 [facility] Dyslipidem ia Dyslipidem ia Disease Active 2022-03 00:00: 00 [facility] BERE (obstructi ve sleep apnea) BERE (obstructi ve sleep apnea) Disease Active 2022-03 00:00: 00 [facility] FERNANDEZ (dyspnea on exertion) FERNANDEZ (dyspnea on exertion) Disease Active 2022-03 00:00: 00 [facility] Anginal equivalent Anginal equivalent Disease Active 2022-03 00:00: 00 [facility] Chest pain, unspecifie d type Chest pain, unspecifie d type Disease Active 2022-03 00:00: 00 [facility] Elevated brain natriureti c peptide (BNP) level Elevated brain natriureti c peptide (BNP) level Disease Active 2022-03 00:00: 00 [facility] Elevated brain natriureti c peptide (BNP) level Elevated brain natriureti c peptide (BNP) level Disease Active 2022-03 00:00: 00 [facility] Goiter Goiter Disease Active 2022-03 0-05 00:00: 00 [facility] Hyperglyce alexa Hyperglyce alexa Disease Active 08-08 00:00: 00 [facility] Adrenal insufficie ncy Adrenal insufficie ncy Disease Active 2020-03 00:00: 00 [facility] Osteoporos is of femur without pathologic al fracture Osteoporos is of femur without pathologic al fracture Disease Active 2020-03 00:00: 00 [facility] Acquired hypothyroi dism Acquired hypothyroi dism Disease Active 2020-03 00:00: 00 [facility] Chronic GERD Chronic GERD Disease Active 08-22 00:00: 00 Overview: Formattin g of this note might be different from the original. Added automatic ally from request for surgery [id number] [facility] Dysphagia, pharyngoes ophageal phase Dysphagia, pharyngoes ophageal phase Disease Active 08-22 00:00: 00 Overview: Formattin g of this note might be different from the original. Added automatic ally from request for surgery [id number] [facility] Wound drainage Wound drainage Disease Active 2019-03 00:00: 00 [facility] Sternal wound dehiscence , initial encounter Sternal wound dehiscence , initial encounter Disease Active 2019-03 00:00: 00 [facility] BLEEDING FROM CABG BLEEDING FROM CABG Active 02/15/2020 Michelle Gracia Diagnosis Active 2019-03 16:02: 00 2020-02-16 07:00:00 Konstantin Gracia Postoperat cole anemia due to acute blood loss Postoperat cole anemia due to acute blood loss Disease Active 2019-03 00:00: 00 [facility] S/P CABG x 2 (REYES to LAD, SVG to OM) on 02/06/2020; Dr Latham S/P CABG x 2 (REYES to LAD, SVG to OM) on 02/06/2020; Dr Latham Disease Active 2019-03 00:00: 00 [facility] Coronary artery disease involving kotlik coronary artery of kotlik heart without angina pectoris Coronary artery disease involving kotlik coronary artery of kotlik heart without angina pectoris Disease Active 2019-03 0 00:00: 00 Overview: Formattin g of this note might be different from the original. Added automatic ally from request for surgery [id number] [facility] Coronary artery disease involving kotlik coronary artery of kotlik heart without angina pectoris Coronary artery disease involving kotlik coronary artery of kotlik heart without angina pectoris Disease Active 2019-03 0 00:00: 00 Overview: Formattin g of this note might be different from the original. Added automatic ally from request for surgery [id number] [facility] Obesity (BMI 30-39.9) Obesity (BMI 30-39.9) Disease Active 04-28 00:00: 00 [facility] Abnormal colonoscop y Abnormal colonoscop y Disease Active 12-14 00:00: 00 Overview: Formattin g of this note might be different from the original. Added automatic ally from request for surgery [id number] [facility] Edema of colon Edema of colon Disease Active 12-14 00:00: 00 Overview: Formattin g of this note might be different from the original. Added automatic ally from request for surgery [id number] [facility] Colon cancer screening Colon cancer screening Disease Active 09-24 00:00: 00 Overview: Formattin g of this note might be different from the original. 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 Hot flashes, menopausal Hot flashes, menopausal Disease Active 2016-03 0 00:00: [address] [facility] Postmenopa usal Postmenopa usal Disease Active 11-14 00:00: [address] [facility] Mixed incontinen ce Mixed incontinen ce Disease Active 11-14 00:00: [address] [facility] Vaginal atrophy Vaginal atrophy Disease Active 11-14 00:00: [address] [facility] Immunosupp ressive management encounter following kidney transplant Immunosupp ressive management encounter following kidney transplant Disease Active 08-23 00:00: [address] [facility] Stiffness of finger joint, right Stiffness of finger joint, right Disease Active 10-18 00:00: 00 [facility] Pain in thumb joint with movement, right Pain in thumb joint with movement, right Disease Active 10-18 00:00: [address] [facility] Localized osteoarthr itis of hand Localized osteoarthr itis of hand Disease Active 10-18 00:00: 00 Overview: Formattin g of this note might be different from the original. ICD10 Diagnosis Term Zigzag Appliquer Utility [facility] Edema of hand Edema of hand Disease Active 10-18 00:00: 00 [facility] Impaired activities of daily living Impaired activities of daily living Disease Active 09-22 00:00: [address] [facility] Pain of hand, unspecifie d laterality Pain of hand, unspecifie d laterality Disease Active 09-22 00:00: [address] [facility] H/O type 1 diabetes mellitus H/O type 1 diabetes mellitus Disease Active 04-10 00:00: [address] [facility] Trigger finger Trigger finger Disease Active 2013-03 0 00:00: [address] [facility] Pain in joint, multiple sites Pain in joint, multiple sites Disease Active 2013-03 0 00:00: [address] 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 Disease Active 11-03 00:00: 00 [facility] Personal history of other diseases of digestive system Personal history of other diseases of digestive system Disease Active 11-03 00:00: 00 [facility] Need for prophylact ic immunother apy Need for prophylact ic immunother apy Disease Active 07-08 00:00: 00 [facility] Encounter for long-term (current) use of other medication s Encounter for long-term (current) use of other medication s Disease Active 07-08 00:00: 00 [facility] Keloid scar Keloid scar Disease Active 2011-03 2 00:00: 00 [facility] Kidney Replaced by Transplant (#3) UNOS [id number] Kidney Replaced by Transplant (#3) UNOS [id number] Disease Recurre mae 11-30 00:00: 00 [facility] Malignant neoplasm of skin of trunk Malignant neoplasm of skin of trunk Disease Active 11-02 00:00: 00 Overview: Formattin g of this note might be different from the original. Right eye lid, back, left hand, 7ICD10 Diagnosis Term Zigzag App[employer] Utility [facility] Hyperparat hyroidism Hyperparat hyroidism Disease Active 11-02 00:00: 00 Overview: Formattin g of this note might be different from the original. 5ICD10 Diagnosis Term Zigzag Appliquer Utility [facility] Irritable bowel syndrome Irritable bowel syndrome Disease Active 11-02 00:00: 00 Overview: Formattin g of this note might be different from the original. [address] [facility] Essential hypertensi on Essential hypertensi on Disease Active 2006-0 4-26 00:00: 00 Overview: Formattin g of this note might be different from the original. 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 Type 2 ICD10 Diagnosis Term Zigzag App[employer] Utility [facility] Hepatitis C carrier Hepatitis C carrier Disease [facility] 1997-03 0 00:00: 00 Overview: Formattin g of this note might be different from the original. 8 first diagnosed 10/16/04 - bx CAH Gd1 stage1 [facility] Herpetic vulvovagin itis Herpetic vulvovagin itis Disease [facility] 0 7 00:00: 00 Overview: Formattin g of this note might be different from the original. 9, 9 [facility] Type 1 diabetes mellitus Type 1 diabetes mellitus Disease [facility] 1967-03 00:00: 00 Overview: Formattin g of this note might be different from the original. 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 CD10 Diagnosis Term Zigzag [employer] [facility] STEMI (ST elevation myocardial infarction ) STEMI (ST elevation myocardial infarction ) Disease Resolve d 07-05 00:00: 00 2024-07-06 00:00:00 2024-07-06 14:17:47 Konstantin Gracia Epic Urinary tract infection, site not specified Urinary tract infection, site not specified Disease Resolve d 08 00:00: 00 2012-01-11 00:00:00 2021-10-13 00:11:27 [facility] VENTRAL HERNIA VENTRAL HERNIA Disease Resolve d 11-02 00:00: 00 2012-01-11 00:00:00 2012-01-11 22:18:43 [facility] Incisional hernia Incisional hernia Disease Resolve d 10-11 00:00: 00 2012-01-11 00:00:00 2021-10-13 00:17:12 [facility] Lymphatic Channel Disorder, (LYMPHOCOE LE) Lymphatic Channel Disorder, (LYMPHOCOE LE) Disease Resolve d 12-18 00:00: 00 2012-01-11 00:00:00 2012-01-11 22:18:52 [facility] Lymphatic Channel Disorder, (LYMPHOCOE LE) Lymphatic Channel Disorder, (LYMPHOCOE LE) Disease Resolve d 12-18 00:00: 00 2012-01-11 00:00:00 2012-01-11 22:18:52 [facility] Methicilli n susceptibl e Staphyloco ccus aureus infection Methicilli n susceptibl e Staphyloco ccus aureus infection Disease Resolve d 11-02 00:00: 00 2012-01-11 00:00:00 2014-12-29 17:32:23 [facility] Mechanical complicati on due to other tissue graft, not elsewhere classified Mechanical complicati on due to other tissue graft, not elsewhere classified Disease Resolve d 11-02 00:00: 00 2012-01-11 00:00:00 2012-01-11 22:20:41 [facility] Other and unspecifie d diseases of upper respirator y tract Other and unspecifie d diseases of upper respirator y tract Disease Resolve d 11-02 00:00: 00 2012-01-11 00:00:00 2012-01-11 22:19:27 [facility] Hypoglycem ia Hypoglycem ia Disease Resolve d 11-02 00:00: 00 2012-01-11 00:00:00 2014-12-29 17:32:23 [facility] Streptococ cus infection Streptococ cus infection Disease Resolve d 11-02 00:00: 00 2012-01-11 00:00:00 2014-12-29 17:32:23 [facility] Candidiasi s of mouth Candidiasi s of mouth Disease Resolve d 11-02 00:00: 00 2012-01-11 00:00:00 2012-01-11 22:19:08 [facility] Other malaise and fatigue Other malaise and fatigue Disease Resolve d 11-02 00:00: 00 2012-01-11 00:00:00 2012-01-11 22:19:[address] [facility] Pseudomona s infection in conditions classified elsewhere and of unspecifie d site Pseudomona s infection in conditions classified elsewhere and of unspecifie d site Disease Resolve d 11-02 00:00: 00 2012-01-11 00:00:00 2012-01-11 22:18:56 [facility] Mechanical complicati on due to other tissue graft, not elsewhere classified Mechanical complicati on due to other tissue graft, not elsewhere classified Disease Resolve d 11-02 00:00: 00 2012-01-11 00:00:00 2012-01-11 22:20:41 [facility] ESRD on dialysis ESRD on dialysis Disease Resolve d 0 10-17 00:00: 00 2012-01-11 00:00:00 2021-10-13 00:18:46 [facility] Alopecia Alopecia Disease Resolve d 2003- 0-04 00:00: 00 2012-01-11 00:00:00 2021-10-13 00:11:27 [facility] Unspecifie d hypertensi ve kidney disease with chronic kidney disease stage I through stage IV, or unspecifie d(403.90) Unspecifie d hypertensi ve kidney disease with chronic kidney disease stage I through stage IV, or unspecifie d(403.90) Disease Resolve d 1995-0 4-09 00:00: 00 2012-01-11 00:00:00 2012-01-11 22:19:55 [facility] Hematuria Hematuria Disease Resolve d 1988-0 14 00:00: 00 2012-01-11 00:00:00 2014-12-29 17:32:23 [facility] Hepatitis in viral disease Hepatitis in viral disease Disease Resolve d 11-02 00:00: 00 2010-08-08 00:00:00 2014-12-29 17:32:[address] [facility] Abdominal hernia Abdominal hernia Disease Resolve d 08-01 00:00: 00 2009-11-02 00:00:00 2021-10-13 00:10:31 [facility] Anemia in chronic renal disease Anemia in chronic renal disease Disease Resolve d 2006-03 00:00: 00 2007-04-10 00:00:00 2021-10-13 00:12:37 [facility] BACTEREMIA - staph aureus BACTEREMIA - staph aureus Disease Resolve d 10-05 00:00: 00 2006-10-15 00:00:00 2010-08-08 11:20:06 [facility] Fever and other physiologi c disturbanc es of temperatur e regulation Fever and other physiologi c disturbanc es of temperatur e regulation Disease Resolve d 10-05 00:00: 00 2006-10-06 00:00:00 2014-12-29 17:08:28 [facility] Kidney replaced by transplant Kidney replaced by transplant Disease Resolve d 0 1-28 00:00: 00 2005-10-17 00:00:00 2006-10-08 09:54:25 [facility] Cellulitis and abscess Cellulitis and abscess Disease Resolve d 08-04 00:00: 00 2005-09-04 00:00:00 2021-10-13 00:08:32 [facility] Dehydratio n Dehydratio n Disease Resolve d 08-04 00:00: 00 2005-08-10 00:00:00 2010-08-08 11:35:17 [facility] Incisional hernia Incisional hernia Disease Resolve d 05-26 00:00: 00 2005-07-25 00:00:00 2014-12-29 17:05:06 [facility] Diarrhea Diarrhea Disease Resolve d 08-22 00:00: 00 2003-08-27 00:00:00 2010-08-08 11:38:11 [facility] Nonspecifi c (abnormal) findings on radiologic al and other examinatio n of gastrointe stinal tract Nonspecifi c (abnormal) findings on radiologic al and other examinatio n of gastrointe stinal tract Disease Resolve d 2003-0 2-09 00:00: 00 2003-05-29 00:00:00 2010-01-31 10:13:08 [facility] Cyclospori n nephrotoxi city Cyclospori n nephrotoxi city Disease Resolve d 0 - 00:00: 00 2003-03-24 00:00:00 2010-08-08 11:34:18 [facility] Enteritis due to adenovirus Enteritis due to adenovirus Disease Resolve d 0 09-10 00:00: 00 2000-06-28 00:00:00 2010-01-31 10:18:26 [facility] Pure hyperglyce ridemia Pure hyperglyce ridemia Disease Resolve d 0 1-30 00:00: 00 2000-05-28 00:00:00 2010-01-31 10:05:42 [facility] Edema Edema Disease Resolve d 0 1-30 00:00: 00 1999-05-21 00:00:00 2010-08-08 11:39:59 [facility] Pancreas replaced by transplant Pancreas replaced by transplant Disease Resolve d 1988-0 620 00:00: 00 1999-04-02 00:00:00 2005-07-29 02:51:38 [facility] End stage renal disease End stage renal disease Disease Resolve d 1990-03 0 00:00: 00 1991-04-26 00:00:00 2021-10-13 00:11:17 [facility] Kidney replaced by transplant Kidney replaced by transplant Disease Resolve d 1988-0 620 00:00: 00 1990-12-28 00:00:00 2006-10-08 09:54:25 [facility] Cholecysti tis Cholecysti tis Disease Resolve d 0 3- 00:00: 00 1990-06-10 00:00:00 2021-10-13 00:11:27 [facility] Calculus of gallbladde r Calculus of gallbladde r Disease Resolve d 8-13 00:00: 00 1990-06-10 00:00:00 2021-10-13 00:11:27 [facility] Chronic pancreatit is Chronic pancreatit is Disease Resolve d 9 00:00: 00 1989-03-28 00:00:00 2010-01-31 10:00:57 [facility] Allergies, Adverse Reactions, Alerts Allergy Name Allergy Type Status Severity Reaction(s) Onset Date Inactive Date Treating Clinician Comments Source Morphine Propensi ty to adverse reaction s Active 07-05 00:00: 00 Konstantin Gracia Epic ADHESIVE TAPE DRUG Active Rash 04-05 00:00: 00 [facility] Adhesive Tape Propensi ty to adverse reaction s Active Rash 04-05 00:00: 00 [facility] Iodine And Iodide Containi ng Products Propensi ty to adverse reaction s Active Hives 2006-03 00:00: 00 [facility] IODINE AND IODIDE CONTAINI NG PRODUCTS Drug Class Active Hives 2006-03 00:00: 00 [facility] MORPHINE DRUG INGREDI Active SOB 05-28 00:00: 00 [facility] Morphine Propensi ty to adverse reaction s Active Swelling 3 00:00: 00 [facility] morphine morphine Active Konstantin Gracia Adhesive Tape Adhesive Tape Active Konstantin Gracia Family History Family Member Diagnosis Comments Start Date Stop Date Sourc e Natural father [facility] Hy[facility] Stroke [facility] Maternal grandfather Diabetes [facility] Maternal grandfather Hypertension [facility] Maternal grandfather Stroke [facility] Maternal grandmother Diabetes [facility] Maternal grandmother Hypertension [facility] Maternal uncle Diabetes [facility] Natural mother Other - see comments [facility] Paternal grandfather Hypertension [facility] Paternal grandmother Diabetes [facility] Paternal grandmother Hypertension [facility] Social History Social Habit Start Date Stop Date Quantity Comments Source Gender identity 2023-06-21 05:09:44 Identifies as female gender (finding) [facility] History SDOH Alcohol Std Drinks [facility] History SDOH Alcohol Binge [facility] History SDOH Social Connections Get Together [facility] History SDOH Social Connections Quaker [facility] History SDOH Social Connections Membership [facility] History SDOH Social Connections Meetings [facility] History of Occupation [facility] Sexual orientation [facility] ASSERTION Possible [facility] Tobacco use and exposure 2024-07-06 00:00:00 2024-07-06 00:00:00 Smokeless tobacco non-user [facility] Alcoholic beverage intake 2024-07-06 00:00:00 2024-07-06 00:00:00 Lifetime non-drinker (finding) [facility] History of Social function 2024-07-05 00:00:00 2024-07-05 00:00:00 [facility] Alcohol intake 2023-06-25 00:00:00 2023-06-25 00:00:00 0 /d [facility] Exposure to SARS-CoV-2 (event) 2022-08-11 00:00:00 2022-08-21 09:54:00 Not sure [facility] History SDOH Financial 2022-08-08 00:00:00 2022-08-08 00:00:00 5 [facility] History SDOH Food Worry 2022-08-08 00:00:00 2022-08-08 00:00:00 1 [facility] History SDOH Food Scarcity 2022-08-08 00:00:00 2022-08-08 00:00:00 1 [facility] History SDOH Transport Med 2022-08-08 00:00:00 2022-08-08 00:00:00 2 [facility] History SDOH Transport Non-Med 2022-08-08 00:00:00 2022-08-08 00:00:00 2 [facility] History SDOH Alcohol Frequency 2022-08-08 00:00:00 2022-08-08 00:00:00 1 [facility] History SDOH Social Connections Phone 2022-08-08 00:00:00 2022-08-08 00:00:00 5 [facility] History SDOH Social Connections Living 2022-08-08 00:00:00 2022-08-08 00:00:00 3 [facility] History SDOH Housing Unable to Pay 2022-08-08 00:00:00 2022-08-08 00:00:00 2 [facility] History SDOH Housing Places Lived 2022-08-08 00:00:00 2022-08-08 00:00:00 1 [facility] History SDOH Housing Homeless Last Year 2022-08-08 00:00:00 2022-08-08 00:00:00 2 [facility] Sex assigned at 1965 00:00:00 1965 00:00:00 [facility] Smoking Status Start Date Stop Date Source Never smoked tobacco Konstantin Easley Medications Ordered Medication Name Filled Medication Name Start Date Stop Date Current Medication? Ordering Clinician Indication Dosage Frequency Signature (SIG) Comments Components Source aspirin 81 MG chewable tablet aspirin 81 MG chewable tablet 07-12 00:00: 00 07-12 23:59 :00 No 81mg QD Chew 1 tablet 1 time each day. Konstantin Easley metoprolol succinate XL (Toprol-XL) 25 MG 24 hr tablet metoprolol succinate XL (Toprol-XL) 25 MG 24 hr tablet 07-12 00:00: 00 07-12 23:59 :00 No 12.5mg QD Take 0.5 tablets by mouth 1 time each day. Do not crush or chew. Konstantin Easley tacrolimus ER (Astagraf XL) 0.5 MG capsule ER tacrolimus ER (Astagraf XL) 0.5 MG capsule ER 07-11 16:37: 36 07-11 00:00 :00 No 1mg Q12H Take 1 mg by mouth in the morning and 1 mg in the evening. Konstantin Easley Insulin Glargine (TOUJEO SOLOSTAR SC) Insulin Glargine (TOUJEO SOLOSTAR SC) 07-11 16:37: 33 Yes 20U QD Inject 20 Units under the skin 1 time each day. Konstantin Easley enalapril (Vasotec) 2.5 MG tablet enalapril (Vasotec) 2.5 MG tablet 07-11 16:37: 33 Yes 2.5mg QD Take 2.5 mg by mouth 1 time each day. Konstantin Easley acyclovir (Zovirax) 200 MG capsule acyclovir (Zovirax) 200 MG capsule 07-11 16:37: 33 Yes 400mg Q.5D Take 400 mg by mouth in the morning and 400 mg in the evening. Konstantin Easley insulin aspart (NovoLOG) 100 UNIT/ML pen insulin aspart (NovoLOG) 100 UNIT/ML pen 07-11 16:37: 33 Yes 11U Inject 11 Units under the skin in the morning and 11 Units at noon and 11 Units in the evening. Inject with meals. Konstantin Easley doxepin (SINEquan) 25 MG capsule doxepin (SINEquan) 25 MG capsule 07-11 16:37: 33 Yes 25mg Take 25 mg by mouth at bedtime. Konstantin Easley sertraline (Zoloft) 100 MG tablet sertraline (Zoloft) 100 MG tablet 07-11 16:37: 33 Yes 200mg QD Take 200 mg by mouth 1 time each day. Konstantin Easley traZODone (Desyrel) 50 MG tablet traZODone (Desyrel) 50 MG tablet 07-11 16:37: 33 Yes 50mg Take 50 mg by mouth at bedtime. Konstantin Easley ranolazine (Ranexa) 500 MG 12 hr tablet ranolazine (Ranexa) 500 MG 12 hr tablet 07-11 16:37: 33 Yes 500mg Q.5D Take 500 mg by mouth in the morning and 500 mg in the evening. Do not crush, chew, or split. Konstantin Easley acetaminoph en-codeine (Tylenol w/ Codeine #3) 300-30 MG tablet acetaminoph en-codeine (Tylenol w/ Codeine #3) 300-30 MG tablet 07-11 16:37: 33 Yes 1{tbl} Q.5D Take 1 tablet by mouth 2 times a day as needed for severe pain (7-10). Konstantin Easley pantoprazol e (ProtoNix) 40 MG EC tablet pantoprazol e (ProtoNix) 40 MG EC tablet 07-11 16:37: 33 Yes 40mg Take 40 mg by mouth at bedtime. Do not crush, chew, or split. Konstantin Easley ondansetron ODT (Zofran-ODT ) disintegrat ing tablet 4 mg ondansetron ODT (Zofran-ODT ) disintegrat ing tablet 4 mg 07-11 03:06: 20 Yes 4mg Q8H 4 mg, Oral, Every 8 hours PRN, nausea, vomiting, Starting on Thu07/11/24 at 0306 Konstantin Easley atorvastati n (Lipitor) 80 MG tablet atorvastati n (Lipitor) 80 MG tablet 07-11 00:00: 00 07-11 23:59 :00 No 80mg Take 1 tablet by mouth at bedtime. Konstantin Easley ezetimibe (Zetia) 10 MG tablet ezetimibe (Zetia) 10 MG tablet 07-11 00:00: 00 07-11 23:59 :00 No 10mg Take 1 tablet by mouth at bedtime. Konstantin Easley mycophenola te (Cellcept) 250 MG capsule mycophenola te (Cellcept) 250 MG capsule 07-11 00:00: 00 08-10 23:59 :00 No 750mg Q.5D Take 3 capsules by mouth in the morning and 3 capsules in the evening. Konstantin Easley tacrolimus (Prograf) 0.5 MG capsule tacrolimus (Prograf) 0.5 MG capsule 07-11 00:00: 00 08-10 23:59 :00 No 1.5mg Q12H Take 3 capsules by mouth in the morning and 3 capsules in the evening. Konstantin Easley ticagrelor (Brilinta) 90 MG tablet ticagrelor (Brilinta) 90 MG tablet 2025-0 4-14 00:00: 00 08-04 23:59 :00 No 90mg Q12H Take 1 tablet by mouth in the morning and 1 tablet in the evening. Do all this for 24 days. Konstantin Easley insulin lispro (Humalog, Admelog) injection 10 Units insulin lispro (Humalog, Admelog) injection 10 Units 5-0 12 18:00: 00 07-09 18:03 :00 No 10U 10 Units, Subcutaneo us, Once, On 07/09/24 at 1800, For 1 dose Konstantin Gracia Epic metoprolol succinate XL (Toprol-XL) 24 hr tablet 12.5 mg metoprolol succinate XL (Toprol-XL) 24 hr tablet 12.5 mg 5-07-09 16:00: 00 Yes 12.5mg QD 12.5 mg, Oral, Daily, First dose on 07/09/24 at 1600, Do not crush or chew. Konstantin Gracia Epic perflutren lipid microsphere s (Definity) injection 3.9772 mg perflutren lipid microsphere s (Definity) injection 3.9772 mg 2024-07-09 10:44: 49 07-09 10:38 :00 No 10uL/kg 3.9772 mg (rounded from 3.9837 mg = 10 mcL/kg ?61.1 kg), Intravenou s, Once in imaging, Starting on 07/09/24 at 1044, For 1 dose, Contrast - for use by imaging provider only. Prior to administra tion or further dilution, Definity product must be activated. First, bring vial to room temperatur e. Then, shake vial for 45 seconds using manufactur er-provide d Vialmix apparatus. Do not use if the 45 second activation cycle has not been completed. Following activation , the product will appear as a milky white suspension and may be used immediatel y. If not used within 5 minutes of activation , re-suspend by inverting and shaking the vial for 10 seconds. Unused product must be discarded within 12 hours after activation . To administer undiluted, draw up activated product into a 3 or 5 mL syringe. If ordered as a diluted syringe, draw up 8.7 mL of preservati ve free saline into a 10 mL syringe, then slowly withdraw 1.3 mL of activated Definity into same syringe. Gently shake by hand to evenly distribute . If ordered as a diluted infusion, draw up 1.3 mL of activated Definity, then add to a 50 mL preservati ve free saline bag. Gently squeeze IV bag to evenly distribute prior to administra tion. Konstantin Easley ticagrelor (Brilinta) tablet 90 mg ticagrelor (Brilinta) tablet 90 mg 07-08 21:00: 00 Yes 90mg Q.5D 90 mg, Oral, Every 12 hours scheduled, First dose on Thu07/08/24 at 2100 Konstantin Easley tacrolimus (Prograf) capsule 1.5 mg tacrolimus (Prograf) capsule 1.5 mg 07-08 18:00: 00 Yes 1.5mg Q12H 1.5 mg, Oral, Every 12 hours, First dose (after last modificati on) on Thu07/08/24 at 1800, Time Critical Medication . Avoid grapefruit and grapefruit juice. Konstantin Easley insulin glargine (Lantus) injection 15 Units insulin glargine (Lantus) injection 15 Units 07-08 18:00: 00 Yes 15U 15 Units, Subcutaneo us, Every evening, First dose (after last modificati on) on Thu07/08/24 at 1800 Konstantin Gracia Epic polyethylen e glycol (PEG) 3350 (Miralax) packet 17 g polyethylen e glycol (PEG) 3350 (Miralax) packet 17 g 07-08 17:00: 00 Yes 17g Q.5D 17 g, Oral, 2 times daily, First dose (after last modificati on) on Thu07/08/24 at 1700, Dissolve 17 g in 120 to 240 mL (4 to 8 ounces) of beverage. Konstantin Easley sennosides (Senokot) tablet 17.2 mg sennosides (Senokot) tablet 17.2 mg 2024-07-08 17:00: 00 Yes 2{tbl} Q.5D 17.2 mg (2 tablet), Oral, 2 times daily, First dose (after last modificati on) on Thu07/08/24 at 1700 Konstantin Easley bisacodyl (Dulcolax) suppository 10 mg bisacodyl (Dulcolax) suppository 10 mg 07-08 09:00: 00 Yes 10mg QD 10 mg, Rectal, Daily, First dose on Thu07/08/24 at 0900 Konstantin Easley ticagrelor (Brilinta) tablet 180 mg ticagrelor (Brilinta) tablet 180 mg 07-08 09:00: 00 Yes 180mg 180 mg, Oral, Once, On Thu07/08/24 at 0900, For 1 dose Konstantin Easley heparin injection 5,000 Units heparin injection 5,000 Units 07-08 06:00: 00 Yes 5000U Q8H 5,000 Units, Subcutaneo us, Every 8 hours, First dose on Thu07/08/24 at 0600 Konstantin Easley mycophenola te (Cellcept) 250 MG capsule mycophenola te (Cellcept) 250 MG capsule 07-08 00:00: 00 07-11 00:00 :00 No 750mg Q.5D Take 3 capsules by mouth in the morning and 3 capsules in the evening. Konstantin Easley tacrolimus (Prograf) 0.5 MG capsule tacrolimus (Prograf) 0.5 MG capsule 07-08 00:00: 00 07-11 00:00 :00 No 1.5mg Q12H Take 3 capsules by mouth in the morning and 3 capsules in the evening. Konstantin Easley ezetimibe (Zetia) tablet 10 mg ezetimibe (Zetia) tablet 10 mg 0 07-07 21:00: 00 Yes 10mg 10 mg, Oral, Nightly, First dose on Thu07/07/24 at 2100 Konstantin Easley tacrolimus (Prograf) capsule 1 mg tacrolimus (Prograf) capsule 1 mg 07-07 18:00: 00 07-08 12:37 :29 No 1mg Q12H 1 mg, Oral, Every 12 hours, First dose (after last modificati on) on Thu07/07/24 at 1800, Time Critical Medication . Avoid grapefruit and grapefruit juice. Konstantin Easley insulin glargine (Lantus) injection 18 Units insulin glargine (Lantus) injection 18 Units 07-07 18:00: 00 07-08 10:20 :44 No 18U 18 Units, Subcutaneo us, Every evening, First dose (after last modificati on) on Thu07/07/24 at 1800 Konstantin Easley hydrocortis one (Cortef) tablet 5 mg hydrocortis one (Cortef) tablet 5 mg 07-07 15:00: 00 Yes 5mg 5 mg, Oral, Every 24 hours, First dose on Thu07/07/24 at 1500 Konstantin Easley polyethylen e glycol (PEG) 3350 (Miralax) packet 17 g polyethylen e glycol (PEG) 3350 (Miralax) packet 17 g 07-07 13:30: 00 07-08 08:54 :18 No 17g QD 17 g, Oral, Daily, First dose on Thu07/07/24 at 1330, Dissolve 17 g in 120 to 240 mL (4 to 8 ounces) of beverage. Konstantin Easley sennosides (Senokot) tablet 17.2 mg sennosides (Senokot) tablet 17.2 mg 07-07 13:30: 00 07-08 08:54 :18 No 2{tbl} QD 17.2 mg (2 tablet), Oral, Daily, First dose on Thu07/07/24 at 1330 Konstantin Easley calcium gluconate 1g in NaCl 50mL IVPB 1 g calcium gluconate 1g in NaCl 50mL IVPB 1 g 07-07 11:40: 30 Yes 1g 1 g, Intravenou s, Administer over 30 Minutes, As needed, Abnormal Lab Result, For NON-ICU Patients Only., Starting on Thu07/07/24 at 1140, For Ionized Calcium 1-1.05 mmol/L: Replace with 1gm Calcium gluconate IVPB over 30 minutes x 2 doses. For Ionized Calcium 0.91 - 0.99 mmol/L: Replace with 1 gm Calcium gluconate IVPB over 30 minutes x 3 doses. Recheck Ionized Calcium level 4 hours after Calcium replacemen t. Notify MD if ionized calcium < 0.91 mMol/L prior to replacemen t. *DO NOT replace if patient is on dialysis, temperatur e < 35 Celsius, or serum creatinine >2.0 mg/dL or GFR < 45 mL/min. Konstantin Gracia Epic magnesium oxide (Mag-Ox) tablet 800 mg magnesium oxide (Mag-Ox) tablet 800 mg 07-07 11:40: 30 Yes 800mg 800 mg, Oral, As needed, Abnormal Lab Result, For NON-ICU Patients Only., Starting on [place] 07/07/24 at 1140, For Magnesium 1.8 - 2.0 mg/dL:? Replace with Magnesium 800 mg PO x 1 dose. For Magnesium 1.5 - 1.7 mg/dL: Replace with Magnesium 800 mg PO every 4 hours x 2 doses. For Magnesium 1.1 - 1.4 mg/dL:? Replace with Magnesium 800 mg PO every 4 hours x 3 doses.? Recheck Magnesium level 4 hours after the end of replacemen t.Notify MD if Magnesium level is < 1.1 mg/dL prior to replacemen t.*Use PO or NJ administra tion unless patient is first 12 hours post-op, active GI bleed, acute arrhythmia s, ischemic bowel or NPO. *DO NOT replace if patient is on dialysis, temperatur e < 35 Celsius, or serum creatinine > 2.0 mg/dL or GFR < 45 mL/min. Konstantin Gracia Epic magnesium sulfate IVPB 4 g magnesium sulfate IVPB 4 g 07-07 11:40: 30 Yes 4g 4 g, Intravenou s, at 25 mL/hr, Administer over 4 Hours, As needed, Abnormal Lab Result, For NON-ICU Patients Only, Starting on [place] 07/07/24 at 1140, For Magnesium 1.8 - 2 mg/dL: Replace with Magnesium Sulfate 1 gram IVPB over 1 hour x 1 dose. For Magnesium 1.5 - 1.7 mg/dL: Replace with Magnesium Sulfate 2 grams IVPB over 2 hours x 1 dose. For Magnesium 1.1 - 1.4 mg/dL:? Replace with Magnesium Sulfate 4 grams IVPB over 4 hours x 1 dose. Recheck Magnesium level 4 hours after the end of replacemen t.Notify MD if Magnesium level is < 1.1 mg/dL prior to replacemen t.*Use PO or NJ administra tion unless patient is first 12 hours post-op, active GI bleed, acute arrhythmia s, ischemic bowel or NPO. *DO NOT replace if patient is on dialysis, temperatur e < 35 Celsius, or serum creatinine > 2.0 mg/dL or GFR < 45 mL/min. Konstantin Roseann Epic magnesium sulfate IVPB 2 g magnesium sulfate IVPB 2 g 07-07 11:40: 30 Yes 2g 2 g, Intravenou s, at 25 mL/hr, Administer over 2 Hours, As needed, Abnormal Lab Result. For NON-ICU Patients Only., Starting on [place] 07/07/24 at 1140, For Magnesium 1.8 - 2 mg/dL: Replace with Magnesium Sulfate 1 gram IVPB over 1 hour x 1 dose. For Magnesium 1.5 - 1.7 mg/dL: Replace with Magnesium Sulfate 2 grams IVPB over 2 hours x 1 dose. For Magnesium 1.1 - 1.4 mg/dL:? Replace with Magnesium Sulfate 4 grams IVPB over 4 hours x 1 dose. Recheck Magnesium level 4 hours after the end of replacemen t.Notify MD if Magnesium level is < 1.1 mg/dL prior to replacemen t.*Use PO or NJ administra tion unless patient is first 12 hours post-op, active GI bleed, acute arrhythmia s, ischemic bowel or NPO. *DO NOT replace if patient is on dialysis, temperatur e < 35 Celsius, or serum creatinine > 2.0 mg/dL or GFR < 45 mL/min. Konstantin Gracia Epic magnesium sulfate in D5W IVPB 1 g magnesium sulfate in D5W IVPB 1 g 07-07 11:40: 29 Yes 1g 1 g, Intravenou s, at 100 mL/hr, Administer over 1 Hours, As needed, Abnormal Lab Result, For NON-ICU Patients Only., Starting on [place] 07/07/24 at 1140, For Magnesium 1.8 - 2 mg/dL: Replace with Magnesium Sulfate 1 gram IVPB over 1 hour x 1 dose. For Magnesium 1.5 - 1.7 mg/dL: Replace with Magnesium Sulfate 2 grams IVPB over 2 hours x 1 dose. For Magnesium 1.1 - 1.4 mg/dL:? Replace with Magnesium Sulfate 4 grams IVPB over 4 hours x 1 dose. Recheck Magnesium level 4 hours after the end of replacemen t.Notify MD if Magnesium level is < 1.1 mg/dL prior to replacemen t.*Use PO or NJ administra tion unless patient is first 12 hours post-op, active GI bleed, acute arrhythmia s, ischemic bowel or NPO. *DO NOT replace if patient is on dialysis, temperatur e < 35 Celsius, or serum creatinine > 2.0 mg/dL or GFR < 45 mL/min. [facility] [place] Epic sodium phosphates 30 mmol in sodium chloride 0.9 % 250 mL IVPB sodium phosphates 30 mmol in sodium chloride 0.9 % 250 mL IVPB 07-07 11:40: 29 Yes 30mmol 30 mmol, Intravenou s, Administer over 4 Hours, As needed, Abnormal Lab Result, For NON-ICU Patients Only, Starting on [place] 07/07/24 at 1140, Evaluate Potassium, Phosphorou s, and Sodium level prior to replacemen t.Phosphor ous IVPB replacemen t when K > 3.9 mEq/L: (For PO or NJ replacemen t option, see orders for potassium phosphate- sodium phosphate oral packet.) For phosphorou s 2 - 2.4 mg/dL and K > 3.9 mEq/L: Replace with Sodium Phosphate 15 mmol IVPB over 4 hrs. For phosphorou s 1.6 - 1.9 mg/dL and K > 3.9 mEq/L: Replace with Sodium Phosphate 30 mmol IVPB over 4 hrs. Recheck phosphorou s level 4 hours after replacemen t complete.N otify MD if Phosphorou s level < 1.6 mg/dL or Na > 148 mEq/L prior to replacemen t. *Use PO or NJ administra tion unless patient is first 12 hours post-op, active GI bleed, acute arrhythmia s, ischemic bowel or NPO. *DO NOT replace if patient is on dialysis, temperatur e < 35 Celsius, or serum creatinine > 2.0 mg/dL or GFR < 45 mL/min. [facility] [place] [facility] sodium phosphates 15 mmol in sodium chloride 0.9 % 250 mL IVPB sodium phosphates 15 mmol in sodium chloride 0.9 % 250 mL IVPB 07-07 11:40: 29 Yes 15mmol 15 mmol, Intravenou s, Administer over 4 Hours, As needed, Abnormal Lab Result, For NON-ICU Patients Only, Starting on [place] 07/07/24 at 1140, Evaluate Potassium, Phosphorou s, and Sodium level prior to replacemen t.Phosphor ous IVPB replacemen t when K > 3.9 mEq/L: (For PO or NJ replacemen t option, see orders for potassium phosphate- sodium phosphate oral packet.) For phosphorou s 2 - 2.4 mg/dL and K > 3.9 mEq/L: Replace with Sodium Phosphate 15 mmol IVPB over 4 hrs. For phosphorou s 1.6 - 1.9 mg/dL and K > 3.9 mEq/L: Replace with Sodium Phosphate 30 mmol IVPB over 4 hrs. Recheck phosphorou s level 4 hours after replacemen t complete.N otify MD if Phosphorou s level < 1.6 mg/dL or Na > 148 mEq/L prior to replacemen t. *Use PO or NJ administra tion unless patient is first 12 hours post-op, active GI bleed, acute arrhythmia s, ischemic bowel or NPO. *DO NOT replace if patient is on dialysis, temperatur e < 35 Celsius, or serum creatinine > 2.0 mg/dL or GFR < 45 mL/min. [facility] potassium phosphate 30 mmol/260 mL NS infusion (premix) 30 mmol potassium phosphate 30 mmol/260 mL NS infusion (premix) 30 mmol 07-07 11:40: 29 Yes 30mmol 30 mmol, Intravenou s, Administer over 4 Hours, As needed, Abnormal Lab Result, For NON-ICU Patients Only, Starting on [place] 07/07/24 at 1140, Potassium and Phosphorou s replacemen t:For K 3.5 - 3.9 mEq/L AND phosphorou s 2.0 - 2.4 mg/dL: Replace with Potassium Phosphate 15 mMol IVPB over 4 hours. For K 3.1 - 3.4 mEq/L AND phosphorou s 2.0 - 2.4 mg/dL: Replace with KCL 20 meq PO/NJ (or IVPB over 2 hours) followed by Potassium Phosphate 15 mMol IVPB over 4 hours. For K 3.1 - 3.9 mEq/L AND phosphorou s 1.6 - 1.9 mg/dL: Replace with Potassium Phosphate 30 mMol IVPB over 4 hours. Recheck Potassium and Phosphorou s level 4 hours after replacemen t complete. Notify MD for K < 3.1 mEq/L or Phosphorou s < 1.6 mg/dL prior to replacemen t.*Use PO or NJ administra tion unless patient is first 12 hours post-op, active GI bleed, acute arrhythmia s, ischemic bowel or NPO. *DO NOT replace if patient is on dialysis, temperatur e < 35 Celsius, or serum creatinine > 2.0 mg/dL or GFR < 45 mL/min. [facility] [place] [facility] potassium phosphate 15 mmol/255 mL NS infusion (premix) 15 mmol potassium phosphate 15 mmol/255 mL NS infusion (premix) 15 mmol 07-07 11:40: 29 Yes 15mmol 15 mmol, Intravenou s, Administer over 4 Hours, As needed, PRN Abnormal Lab Result, For NON-ICU Patients Only., Starting on [place] 07/07/24 at 1140, Potassium and Phosphorou s replacemen t:For K 3.5 - 3.9 mEq/L AND phosphorou s 2.0 - 2.4 mg/dL: Replace with Potassium Phosphate 15 mMol IVPB over 4 hours. For K 3.1 - 3.4 mEq/L AND phosphorou s 2.0 - 2.4 mg/dL: Replace with KCL 20 meq PO/NJ (or IVPB over 2 hours) followed by Potassium Phosphate 15 mMol IVPB over 4 hours. For K 3.1 - 3.9 mEq/L AND phosphorou s 1.6 - 1.9 mg/dL: Replace with Potassium Phosphate 30 mMol IVPB over 4 hours. Recheck Potassium and Phosphorou s level 4 hours after replacemen t complete. Notify MD for K < 3.1 mEq/L or Phosphorou s < 1.6 mg/dL prior to replacemen t.*Use PO or NJ administra tion unless patient is first 12 hours post-op, active GI bleed, acute arrhythmia s, ischemic bowel or NPO. *DO NOT replace if patient is on dialysis, temperatur e < 35 Celsius, or serum creatinine > 2.0 mg/dL or GFR < 45 mL/min. Konstantin Gracia Epic potassium & sodium phosphates (Phos-NaK) 280-160-250 MG packet 2 packet potassium & sodium phosphates (Phos-NaK) 280-160-250 MG packet 2 packet 07-07 11:40: 29 Yes 2{packe t} 2 packet, Oral, As needed, Abnormal Lab Result, For NON-ICU Patients Only, Starting on [place] 07/07/24 at 1140, Oral Phosphorou s replacemen t when K is 3.5 - 4.5 mEq/L:(If the K is < 3.5 mEq/L, refer to IVPB Potassium Phosphate orders for replacemen t)Evaluate Potassium, Phosphorou s, and Sodium level prior to replacemen t. For Phosphorou s 2 - 2.4 mg/dL and K 3.5 - 4.5 mEq/L: Replace with 2 packets PO x 1 dose For Phosphorou s 1.6 - 1.9 mg/dL and K 3.5 - 4.5 mEq/L: Replace with 2 packets PO every 4 hours x 2 doses Recheck Potassium and Phosphorou s level 4 hours after replacemen t.Notify MD if PO4 level is <1.6mg/dL prior to replacemen t.*Use PO or NJ administra tion unless patient is first 12 hours post-op, active GI bleed, acute arrhythmia s, ischemic bowel or NPO. *DO NOT replace if patient is on dialysis, temperatur e < 35 Celsius, or serum creatinine > 2.0 mg/dL or GFR < 45 mL/min. Konstantin [facility] Epic potassium chloride IVPB 10 mEq potassium chloride IVPB 10 mEq 07-07 11:40: 29 Yes 10meq 10 mEq, Intravenou s, at 50 mL/hr, Administer over 1 Hours, As needed, Abnormal Lab Result, For NON-ICU Patients Only, Starting on [place] 07/07/24 at 1140, Evaluate Potassium and Phosphorou s level prior to replacemen t.Potassiu m chloride Peripheral infusion concentrat ion = 0.1 mEq/mLAdmi nister each KCL 10 mEq IVPB dose over 1 hour. Potassium replacemen t; phosphorou s > 2.4 mg/dL or phosphorou s level not available: For K = 3.5 - 3.9 mEq/L: Replace with KCL 20 mEq IVPB over 2 hours.? Recheck Potassium with next scheduled lab. For K = 3.1 - 3.4 mEq/L: Replace with KCL 40 mEq IVPB over 4 hours.? Recheck Potassium 4 hours after replacemen t. Potassium and Phosphorou s IV Replacemen t (See Potassium Phosphate orders): For K = 3.5 - 3.9 mEq/L AND Phosphorou s 2 - 2.4 mg/dL:? Replace with Potassium Phosphate 15 mMol IVPB over 4 hours. For K = 3.1 - 3.4 mEq/L AND Phosphorou s 2 - 2.4 mg/dL: Replace with KCL 20 mEq? IVPB over 2 hours followed by Potassium Phosphate 15 mMol IVPB over 4 hours.? For K = 3.1 - 3.9 mEq/L AND Phosphorou s 1.6 - 1.9 mg/dL: Replace with Potassium Phosphate 30 mMol IVPB over 4 hours.? Recheck Potassium and Phosphorou s levels 4 hours after replacemen t complete. Notify MD for K < 3.1 mEq/L or Phosphorou s < 1.6 mg/dL prior to replacemen t.*Use PO or NJ administra tion unless patient is first 12 hours post-op, active GI bleed, acute arrhythmia s, ischemic bowel or NPO. *DO NOT replace if patient is on dialysis, temperatur e < 35 Celsius, or serum creatinine > 2.0 mg/dL or GFR < 45 mL/min. For central line administra tion only. Konstantin Gracia [facility] Potassium chloride solution 20 mEq Potassium chloride solution 20 mEq 07-07 11:40: 29 Yes 20meq 20 mEq, Nasogastri c, As needed, Abnormal Lab Result, For NON-ICU Patients Only, Starting on [place] 07/07/24 at 1140, Evaluate Potassium and Phosphorou s level prior to replacemen t. Potassium replacemen t; phosphorou s > 2.4 mg/dL or phosphorou s level not available: For K = 3.5 - 3.9 mEq/L: Replace with KCL 20 mEq.? Recheck Potassium with next scheduled lab. For K = 3.1 - 3.4 mEq/L: Replace with KCL 40 mEq.? Recheck Potassium 4 hours after replacemen t. Potassium and Phosphorou s Replacemen t (See Phosphate replacemen t orders):Fo r K = 3.5 - 4.5 mEq/L AND Phosphorou s 2 - 2.4 mg/dL:? Replace with 2 packets of Potassium phosphate/ sodium phosphate oral powder x 1 dose. For K = 3.5 - 4.5 mEq/L AND Phosphorou s 1.6 - 1.9 mg/dL:? Replace with 2 packets of Potassium phosphate/ sodium phosphate oral powder Q4H x 2 doses. For K = 3.1 - 3.4 mEq/L AND Phosphorou s 2 - 2.4 mg/dL: Replace with KCL 20 mEq PO/NJ AND Potassium Phosphate 15 mMol IVPB over 4 hours.? For K = 3.1 - 3.4 mEq/L AND Phosphorou s 1.6 - 1.9 mg/dL: Replace with Potassium Phosphate 30 mMol IVPB over 4 hours.? Recheck Potassium and Phosphorou s levels 4 hours after replacemen t complete. Notify MD for K < 3.1 mEq/L or Phosphorou s < 1.6 mg/dL prior to replacemen t. *Use PO or NJ administra tion unless patient is first 12 hours post-op, active GI bleed, acute arrhythmia s, ischemic bowel or NPO. *DO NOT replace if patient is on dialysis, temperatur e < 35 Celsius, or serum creatinine > 2.0 mg/dL or GFR < 45 mL/min. Konstantin Gracia [facility] potassium chloride CR (Klor-Con M20) ER tablet 40 mEq potassium chloride CR (Klor-Con M20) ER tablet 40 mEq 07-07 11:40: 29 Yes 40meq 40 mEq, Oral, As needed, Abnormal Lab Result, NON-ICU Patients Only, Starting on [place] 07/07/24 at 1140, Evaluate Potassium and Phosphorou s level prior to replacemen t. Potassium replacemen t; phosphorou s > 2.4 mg/dL or phosphorou s level not available: For K = 3.5 - 3.9 mEq/L: Replace with KCL 20 mEq. Recheck Potassium with next scheduled lab. For K = 3.1 - 3.4 mEq/L: Replace with KCL 40 mEq.? Recheck Potassium 4 hours after replacemen t. Potassium and Phosphorou s Replacemen t: For K = 3.5 - 4.5 mEq/L AND Phosphorou s 2 - 2.4 mg/dL:? Replace with 2 packets of Potassium phosphate/ sodium phosphate oral powder x 1 dose. For K = 3.5 - 4.5 mEq/L AND Phosphorou s 1.6 - 1.9 mg/dL:? Replace with 2 packets of Potassium phosphate/ sodium phosphate oral powder Q4H x 2 doses. For K = 3.1 - 3.4 mEq/L AND Phosphorou s 2 - 2.4 mg/dL: Replace with KCL 20 mEq PO/NJ AND Potassium Phosphate 15 mMol IVPB over 4 hours. For K = 3.1 - 3.4 mEq/L AND Phosphorou s 1.6 - 1.9 mg/dL: Replace with Potassium Phosphate 30 mMol IVPB over 4 hours. Recheck Potassium and Phosphorou s levels 4 hours after replacemen t complete.N otify MD for K < 3.1 mEq/L or Phosphorou s < 1.6 mg/dL prior to replacemen t. *Use PO or NJ administra tion unless patient is first 12 hours post-op, active GI bleed, acute arrhythmia s, ischemic bowel or NPO. Do Not Crush the ER tablets. DO NOT replace if patient is on dialysis, temperatur e < 35 Celsius, or serum creatinine > 2.0 mg/dL or GFR < 45 mL/min. DO NOT CRUSH.? For patients able to take medication s orally or via feeding tube >/= 14 Mexican, may dissolve each 20 mEq tablet in 4 oz of water.? Allow about 2 minutes for the tablets to disintegra te.? Stir before giving to prepare slurry and administer .? Please exclude patient's with feeding tube less than 14 Mexican (Dobhoff, J-tube, etc) and pediatric and patients. Do not crush or chew. Konstantin Easley potassium chloride CR (Klor-Con M20) ER tablet 20 mEq potassium chloride CR (Klor-Con M20) ER tablet 20 mEq 4- 11:40: 29 Yes 20meq 20 mEq, Oral, As needed, Abnormal Lab Result, For NON-ICU Patients Only, Starting on [place] 07/07/24 at 1140, Evaluate Potassium and Phosphorou s level prior to replacemen t. Potassium replacemen t; phosphorou s > 2.4 mg/dL or phosphorou s level not available: For K = 3.5 - 3.9 mEq/L: Replace with KCL 20 mEq. Recheck Potassium with next scheduled lab. For K = 3.1 - 3.4 mEq/L: Replace with KCL 40 mEq.? Recheck Potassium 4 hours after replacemen t. Potassium and Phosphorou s Replacemen t: For K = 3.5 - 4.5 mEq/L AND Phosphorou s 2 - 2.4 mg/dL:? Replace with 2 packets of Potassium phosphate/ sodium phosphate oral powder x 1 dose. For K = 3.5 - 4.5 mEq/L AND Phosphorou s 1.6 - 1.9 mg/dL:? Replace with 2 packets of Potassium phosphate/ sodium phosphate oral powder Q4H x 2 doses. For K = 3.1 - 3.4 mEq/L AND Phosphorou s 2 - 2.4 mg/dL: Replace with KCL 20 mEq PO/NJ AND Potassium Phosphate 15 mMol IVPB over 4 hours. For K = 3.1 - 3.4 mEq/L AND Phosphorou s 1.6 - 1.9 mg/dL: Replace with Potassium Phosphate 30 mMol IVPB over 4 hours. Recheck Potassium and Phosphorou s levels 4 hours after replacemen t complete.N otify MD for K < 3.1 mEq/L or Phosphorou s < 1.6 mg/dL prior to replacemen t. *Use PO or NJ administra tion unless patient is first 12 hours post-op, active GI bleed, acute arrhythmia s, ischemic bowel or NPO. Do Not Crush the ER tablets. DO NOT replace if patient is on dialysis, temperatur e < 35 Celsius, or serum creatinine > 2.0 mg/dL or GFR < 45 mL/min. DO NOT CRUSH.? For patients able to take medication s orally or via feeding tube >/= 14 Mexican, may dissolve each 20 mEq tablet in 4 oz of water.? Allow about 2 minutes for the tablets to disintegra te.? Stir before giving to prepare slurry and administer .? Please exclude patient's with feeding tube less than 14 Mexican (Dobhoff, J-tube, etc) and pediatric and patients. Do not crush or chew. Konstantin Easley mycophenola te (Cellcept) capsule 750 mg mycophenola te (Cellcept) capsule 750 mg 5-07-07 09:00: 00 Yes 750mg Q.5D 750 mg, Oral, 2 times daily, First dose (after last modificati on) on Thu07/07/24 at 0900, TIME CRITICAL MEDICATION (Same As: CellCept) SEPARATE ANTACIDS from Cellcept by 2 hrs. (Do Not Crush) Hazardous Drug Group 2:Non-anti neoplastic Hazardous Drug -- Refer to safe handling procedure PPE Matrix Konstantin Easley hydrocortis one (Cortef) tablet 20 mg hydrocortis one (Cortef) tablet 20 mg 07-07 09:00: 00 Yes 20mg QD 20 mg, Oral, Daily, First dose on Thu07/07/24 at 0900 Konstantin Easley calcium carbonate (Tums) chewable tablet 500 mg calcium carbonate (Tums) chewable tablet 500 mg 07-06 13:30: 00 07-06 13:38 :00 No 500mg 500 mg, Oral, Once, On Thu07/06/24 at 1330, For 1 dose Konstantin Easley atorvastati n (Lipitor) tablet 80 mg atorvastati n (Lipitor) tablet 80 mg 07-06 09:45: 00 08-05 08:59 :00 No 80mg QD 80 mg, Oral, Daily, First dose on Thu07/06/24 at 0945, For 30 days Konstantin Easley levothyroxi ne (Synthroid, Levoxyl) tablet 50 mcg levothyroxi ne (Synthroid, Levoxyl) tablet 50 mcg 07-06 09:00: 00 Yes 50ug QD 50 mcg, Oral, Daily, First dose on Thu07/06/24 at 0900 Konstantin Easley mycophenola te (Cellcept) capsule 250 mg mycophenola te (Cellcept) capsule 250 mg 2024-07-06 09:00: 00 07-07 08:24 :58 No 250mg Q.5D 250 mg, Oral, 2 times daily, First dose (after last reorder) on Thu07/06/24 at 0900, TIME CRITICAL MEDICATION (Same As: CellCept) SEPARATE ANTACIDS from Cellcept by 2 hrs. (Do Not Crush) Hazardous Drug Group 2:Non-anti neoplastic Hazardous Drug -- Refer to safe handling procedure PPE Matrix Konstantin Easley clopidogrel (Plavix) tablet 75 mg clopidogrel (Plavix) tablet 75 mg 07-06 09:00: 00 07-07 13:25 :48 No 75mg QD 75 mg, Oral, Daily, First dose on Thu07/06/24 at 0900, Recovery & On Unit, Maintenanc e dose Konstanitn Easley hydrocortis one (Cortef) tablet 30 mg hydrocortis one (Cortef) tablet 30 mg 07-06 09:00: 00 07-06 08:35 :00 No 30mg QD 30 mg, Oral, Daily, First dose on Thu07/06/24 at 0900, For 1 dose Konstantin Easley tacrolimus (Prograf) capsule 1 mg tacrolimus (Prograf) capsule 1 mg 07-06 06:00: 00 07-07 12:27 :47 No 1mg 1 mg, Oral, Every morning, First dose on Thu07/06/24 at 0600, Time Critical Medication . Avoid grapefruit and grapefruit juice. Konstantin Easley ticagrelor (Brilinta) 90 MG tablet ticagrelor (Brilinta) 90 MG tablet 07-06 00:00: 00 07-11 00:00 :00 No 90mg Q12H Take 1 tablet by mouth in the morning and 1 tablet in the evening. Konstantin Easley ondansetron (Zofran) injection 4 mg ondansetron (Zofran) injection 4 mg 07-05 23:45: 00 07-05 23:45 :00 No 4mg 4 mg, Intravenou s, Once, On Thu07/05/24 at 2345, For 1 dose Konstantin Easley ondansetron (Zofran) 4 MG/2ML injection - Pyxis Override Pull ondansetron (Zofran) 4 MG/2ML injection - Pyxis Override Pull 07-05 23:41: 38 07-05 23:45 :00 No Starting on Thu07/05/24 at 2341, For 1 dose, Created by cabinet override Konstantin Easley tacrolimus (Prograf) capsule 0.5 mg tacrolimus (Prograf) capsule 0.5 mg 07-05 18:00: 00 07-07 12:27 :47 No .5mg QD 0.5 mg, Oral, Daily, First dose on Thu07/05/24 at 1800, Time Critical Medication . Avoid grapefruit and grapefruit juice. Konstantin Easley insulin glargine (Lantus) injection 20 Units insulin glargine (Lantus) injection 20 Units 07-05 18:00: 00 07-07 10:35 :10 No 20U 20 Units, Subcutaneo us, Every evening, First dose (after last modificati on) on Thu07/05/24 at 1800 Konstantin Easley mycophenola te (Cellcept) tablet 250 mg mycophenola te (Cellcept) tablet 250 mg 07-05 17:00: 00 07-06 07:45 :23 No 250mg Q.5D 250 mg, Oral, 2 times daily, First dose on Thu07/05/24 at 1700, TIME CRITICAL MEDICATION (Same As: CellCept) SEPARATE ANTACIDS from Cellcept by 2 hrs. (Do Not Crush) Hazardous Drug Group 2:Non-anti neoplastic Hazardous Drug -- Refer to safe handling procedure PPE Matrix Konstantin Easley acetaminoph en (Tylenol) tablet 650 mg acetaminoph en (Tylenol) tablet 650 mg 07-05 14:46: 04 Yes 650mg Q6H 650 mg, Oral, Every 6 hours PRN, mild pain (1-3), Starting on Thu07/05/24 at 1446, Max acetaminop hen = 4000mg/day (4gm/day) Konstantin Easley sulfur hexafluorid e lipid-type A microsphere s (Lumason) 60.7-25 MG Injectable suspension 2 mL sulfur hexafluorid e lipid-type A microsphere s (Lumason) 60.7-25 MG Injectable suspension 2 mL 07-05 14:44: 32 07-05 14:44 :00 No 2mL 2 mL, Intravenou s, Once in imaging, Starting on Thu07/05/24 at 1444, For 1 dose, Reconstitu te with 5 mL of PF NS only using provided Mini-Gio ; shake vigorously for 20 sec until a homogenous white milky suspension forms. Use immediatel y. May repeat once during procedure. Konstantin Easley ondansetron (Zofran) injection 4 mg ondansetron (Zofran) injection 4 mg 07-05 14:30: 00 07-05 14:45 :00 No 4mg 4 mg, Intravenou s, Once, On Thu07/05/24 at 1430, For 1 dose Konstantin Gracia Epic magnesium sulfate IVPB 2 g magnesium sulfate IVPB 2 g 07-05 14:18: 03 07-07 11:40 :16 No 2g 2 g, Intravenou s, Administer over 4 Hours, As needed, Abnormal Lab Result, FOR ICU USE ONLY, Starting on Thu07/05/24 at 1418, For magnesium 1.6 to 1.8 mg/dL: Replace with Mg Sulfate 2 grams IVPB over 4 hours x 1 dose. For magnesium 1.9 to 2.3 mg/dL(in CV surgery patients only): Replace with Mg Sulfate 2 grams IVPB over 4 hours X 1 dose> For magnesium </= 1.5 mg/dL: Replace with Mg Sulfate 2 grams IVPB over 4 hours X 2 doses. Notify MD if magnesium </= 1.1 mg/dL Recheck Magnesium level 2 hours after Magnesium replacemen t complete. Konstantin Gracia Epic hydrocortis one sod succinate (PF) (Solu-ROSEMARY F) injection 50 mg hydrocortis one sod succinate (PF) (Solu-ROSEMARY F) injection 50 mg 07-05 13:30: 00 07-05 18:04 :00 No 50mg Q.25D 50 mg, Intravenou s, Every 6 hours scheduled, First dose on Thu07/05/24 at 1330, For 2 doses, IV or IM Reconstitu te 100 mg vials with bacteriost atic water or bacteriost atic sodium chloride. not more > 2ml Konstantin Easley insulin lispro (Humalog, Admelog) injection 6 Units insulin lispro (Humalog, Admelog) injection 6 Units 07-05 13:00: 00 Yes 6U 6 Units, Subcutaneo us, 3 times daily with meals, First dose on Thu07/05/24 at 1300 Konstantin Easley insulin lispro (HumaLOG, Admelog) injection 1-4 Units [id number] 3898-0 4-08 12:51: 15 Yes 1U [id number] 3D 1-4 Units, Subcutaneo us, 3 times daily PRN, high blood sugar, with meals, Starting on Thu07/05/24 at 1251, For BG < 70, follow hypoglycem ia protocol and notify ordering provider. If patient can eat or drink, give oral carbohydra te as ordered per hypoglycem ia protocol. If patient NPO, give dextrose 50 % IV as ordered per hypoglycem ia protocol. If NPO and no IV access, give glucagon IM as ordered per hypoglycem ia protocol. Check BG every 15 minutes and repeat treatment if continued BG < 80., Correction Insulin Dosing: (DO NOT CHANGE DEFAULT SELECTION/ VALUES): Very Low, BG < 70 instructio ns: Follow Hypoglycem ia Orders, BG 70-149 instructio ns: No Dose Needed, BG 150-199: 1, BG 200-249: 2, BG 250-299: 3, BG >/= 300: 4, BG > 300 instructio ns: Contact Provider Konstantin Easley glucagon injection 1 mg glucagon injection 1 mg 07-05 12:51: 04 Yes 1mg 1 mg, Intramuscu lar, As needed, For BG < 70 mg/dL if no IV access and patient is either Unconsciou s, unable to swallow or npo, Starting on Thu07/05/24 at 1251, For BG < 70 mg/dL if no IV access and patient is either Unconsciou s, unable to swallow or npo and notify MD. [facility] [place] [facility] dextrose 50 % solution 25 g dextrose 50 % solution 25 g 07-05 12:51: 04 Yes 25g 25 g, Intravenou s, As needed, other, if Blood Glucose </= 50 mg/dL, Starting on Thu07/05/24 at 1251, If BG </=50 mg/dL, give 50 mL of D50W IV push STAT and notify MD. Konstantin l [place] [facility] dextrose 50 % solution 12.5 g dextrose 50 % solution 12.5 g 07-05 12:51: 04 Yes 12.5g 12.5 g, Intravenou s, As needed, low blood sugar, if Blood Glucose 51- 69 mg/dL, Starting on Thu07/05/24 at 1251, For BG 51-69 mg/dL and patient UNCONSCIOU S OR UNABLE TO SWALLOW OR NPO: Give 25 mL of D50W IV push and notify MD. Konstantin [facility] [place] [facility] aspirin chewable tablet 81 mg aspirin chewable tablet 81 mg 07-05 09:00: 00 Yes 81mg QD 81 mg, Oral, Daily, First dose on Thu07/05/24 at 0900 [facility] [place] [facility] sodium chloride (NS) 0.9 % flush 10 mL sodium chloride (NS) 0.9 % flush 10 mL 07-05 09:00: 00 Yes 10mL Q.5D 10 mL, Intravenou s, Every 12 hours scheduled, First dose on Thu07/05/24 at 0900, Recovery & On Unit, Administer at least once every 12 hours [facility] sodium chloride 0.9 % infusion sodium chloride 0.9 % infusion 07-05 08:15: 00 07-05 14:00 :00 No 20mL/h 20 mL/hr, Intravenou s, Administer over 6 Hours, Once, On Thu07/05/24 at 0815, For 1 dose, Recovery & On Unit, For Ejection Fraction (EF) < or = 40% or Acute Heart Failure. Post-Proce dure Fluid. [facility] sodium chloride (NS) 0.9 % flush 10 mL sodium chloride (NS) 0.9 % flush 10 mL 2025-0 4-08 08:06: 40 Yes 10mL 10 mL, Intravenou s, As needed, line care, Line Flush, Starting on Thu07/05/24 at 0806, Recovery & On Unit Konstantin Gracia [facility] insulin glargine U-300 conc (TOUJEO SOLOSTAR U-300 INSULIN) 300 unit/mL (1.5 mL) InPn 3- 00:00: 00 Yes [id number] INJECT 20 UNITS UNDER THE SKIN ONCE A DAY IN THE MORNING. [facility] enalapril 2.5 mg tablet 1- 00:00: 00 Yes [id number] 2.5mg Take 1 tablet by mouth in the morning. 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 [facility] Blood-Gluco se Sensor (FREESTYLE KARLA 3 PLUS SENSOR) Debbie 2023-03 00:00: 00 Yes Use as directed; Change Q15D [facility] Blood-Gluco se Sensor (FREESTYLE KARLA 3 PLUS SENSOR) Debbie 2023-03 00:00: 00 Yes Use as directed; Change Q15D [facility] Lancets (ACCU-CHEK SOFTCLIX LANCETS) [facility] [place]23-03 00:00: 00 Yes [id number] Use as directed 3 times a day TID E10.65 [facility] insulin aspart U-100 (NOVOLOG FLEXPEN U-100 INSULIN) 100 unit/mL (3 mL) injection 2023-03 00:00: 00 Yes [id number] 11U inject 11 Units under the skin in the morning and 11 Units at noon and 11 Units in the evening. inject before meals. [facility] insulin glargine U-300 conc (TOUJEO SOLOSTAR U-300 INSULIN) 300 unit/mL (1.5 mL) InPn 2023-03 00:00: 00 06-27 00:00 :00 No [id number] 33U inject 33 Units under the skin in the morning. [facility] mycophenola te 250 mg capsule 2023-03 00:00: 00 Yes [id number] 250mg Take 1 capsule by mouth every 12 (twelve) hours. [facility] [facility] tacrolimus 0.5 mg capsule 2023-03 00:00: 00 Yes [id number] Take 2 capsules by mouth every morning AND 1 capsule every evening. z94.0 [facility] doxepin 25 mg capsule 2023-03 016 00:00: 00 Yes [id number] 25mg Take 1 capsule by mouth at bedtime. [facility] ACCU-CHEK GUIDE GLUCOSE METER Misc 12-17 00:00: 00 Yes [id number] Use as directed 3 times a day TID E10.65 [facility] ACCU-CHEK GUIDE TEST STRIPS strip 12-17 00:00: 00 Yes [id number] Use as directed 3 times a day TID E10.65 [facility] ACCU-CHEK GUIDE GLUCOSE METER Mis 12-17 00:00: 00 Yes [id number] Use as directed 3 times a day TID E10.65 [facility] ACCU-CHEK GUIDE TEST STRIPS strip 12-17 00:00: 00 Yes [id number] Use as directed 3 times a day TID E10.65 [facility] ACCU-CHEK SOFTCLIX LANCETS Misc 12-17 00:00: 00 02-02 00:00 :00 No [id number] Use as directed 3 times a day TID E10.65 [facility] Blood-Gluco se Meter,Lelo nuous (FREESTYLE KARLA 3 READER) [facility] [place]-15 00:00: 00 Yes Use as directed [facility] Blood-Gluco se Meter,Lelo nuous (FREESTYLE KARLA 3 READER) [facility] [place] 12-15 00:00: 00 Yes Use as directed [facility] Blood-Gluco se Sensor (FREESTYLE KARLA 3 SENSOR) [facility] 12-15 00:00: 00 02-09 00:00 :00 No [id number] Use as directed every 2 weeks [facility] insulin glargine U-300 conc (TOUJEO SOLOSTAR U-300 INSULIN) 300 unit/mL (1.5 mL) InPn 12-15 00:00: 00 02-02 00:00 :00 No [id number] 33U inject 33 Units under the skin in the morning. E10.65 [facility] insulin aspart U-100 (NOVOLOG FLEXPEN U-100 INSULIN) 100 unit/mL (3 mL) injection 12-15 00:00: 00 02-02 00:00 :00 No [id number] 11U inject 11 Units under the skin in the morning and 11 Units at noon and 11 Units in the evening. inject before meals. PLUS sliding scale (max 48 units daily) [facility] SERTraline 100 mg tablet 12-14 00:00: 00 Yes [id number] 200mg Take 2 tablets by mouth in the morning. [facility] traZODone 50 mg tablet 12-14 00:00: 00 Yes [id number] 50mg Take 1 tablet by mouth at bedtime. [facility] ONETOUCH VERIO TEST STRIPS strip 12-14 00:00: 00 12-17 00:00 :00 No [id number] Use as directed 3 times a day E10.65 [facility] Blood-Gluco se Meter (ONETOUCH VERIO FLEX METER) [facility] [place] 12-14 00:00: 00 12-17 00:00 :00 No [id number] Use as directed 3 times a day E10.65 [facility] lancets (ONETOUCH DELICA PLUS LANCET) 33 gauge Misc 17 00:00: 00 12-17 00:00 :00 No [id number] Use as directed 3 times a day E10.65 [facility] acyclovir 200 mg capsule 12-09 00:00: 00 03-02 00:00 :00 No [id number] TAKE TWO (2) CAPSULE(S) BY MOUTH IN THE MORNING AND 2 CAPSULES IN THE EVENING. [facility] atorvastati n 80 mg tablet 12-08 00:00: 00 Yes [id number] 80mg TAKE ONE (1) TABLET(S) BY MOUTH AT BEDTIME. [facility] atorvastati n 80 mg tablet 12-01 00:00: 00 12-08 00:00 :00 No [id number] 80mg Take 1 tablet by mouth at bedtime. [facility] NaCl 0.9% (NS) bolus infusion 500 mL 11-23 02:00: 00 11-23 03:29 :00 No 500mL at 999 mL/hr, 500 mL, IV Infusion, ONCE, 1 dose, On Thu11/23/23 at 2100, STAT [facility] insulin glargine U-300 conc (TOUJEO SOLOSTAR U-300 INSULIN) 300 unit/mL (1.5 mL) InPn 11-23 00:00: 00 12-15 00:00 :00 No [id number] 20U inject 20 Units under the skin in the morning. E10.65 [facility] atorvastati n 80 mg tablet 11-18 00:00: 00 12-01 00:00 :00 No [id number] 80mg Take 1 tablet by mouth at bedtime. [facility] SYNTHROID 50 mcg tablet 11-16 00:00: 00 Yes [id number] TAKE ONE (1) TABLET BY MOUTH EVERY MORNING. Brand name [facility] hydrocortis one 10 mg tablet 11-16 00:00: 00 Yes [id number] TAKE TWO (2) TABLET(S) BY MOUTH EVERY MORNING AND ONE-HALF (1/2) TABLET(S) AROUND 3PM DAILY. [facility] Insulin Maurepas, Disposable, (NOVOFINE 32) 32 gauge x 1/4" Ndle 11-16 00:00: 00 Yes [id number] Use as directed to inject insulin 4 times a day E10.65 [facility] insulin aspart U-100 (NOVOLOG FLEXPEN U-100 INSULIN) 100 unit/mL (3 mL) injection 11-16 00:00: 00 12-15 00:00 :00 No [id number] 10U inject 10-15 Units under the skin in the morning and 10-15 Units at noon and 10-15 Units in the evening. inject before meals. Via sliding scale up to 40 units a day E10.65 [facility] Blood-Gluco se Sensor (FREESTYLE KARLA 3 SENSOR) Debbie 11-16 00:00: 00 12-15 00:00 :00 No [id number] Use as directed every 2 weeks [facility] insulin glargine U-300 conc (TOUJEO SOLOSTAR U-300 INSULIN) 300 unit/mL (1.5 mL) InPn 11-16 00:00: 00 11-23 00:00 :00 No [id number] 20U inject 20 Units under the skin in the morning. E10.65 [facility] SERTraline 100 mg tablet 11-09 00:00: 00 12-14 00:00 :00 No [id number] 100mg Take 1 tablet by mouth in the morning. [facility] SERTraline 100 mg tablet 11-07 00:00: 00 11-09 00:00 :00 No [id number] 100mg Take 1 tablet by mouth in the morning. [facility] ranolazine 500 mg 12 hr tablet 11-02 00:00: 00 Yes [id number] 500mg Take 1 tablet by mouth in the morning and 1 tablet in the evening. [facility] NaCl 0.9% (NS) bolus infusion 500 mL 09-22 18:30: 00 09-22 18:30 :00 No 500mL at 999 mL/hr, 500 mL, IV Infusion, ONCE, 1 dose, On Thu09/23/23 at 1330, STAT [facility] cefTRIAXone (ROCEPHIN) 1,000 mg in NaCl 0.9% (NS) 100 mL MINI-BAG 09-22 17:30: 00 09-22 18:05 :00 No 1000mg 1,000 mg, IV Piggyback, ONCE, 1 dose, On Thu09/23/23 at 1230, Administer over 30 Minutes, 100 mL, Reason for Anti-Infec tive: Documented Infection, Documented Infection Site: Urine, Duration of Therapy: Once (ED) [facility] cefdinir 300 mg capsule 09-22 00:00: 00 10-01 00:00 :00 No [id number] 300mg Take 1 capsule by mouth every 12 (twelve) hours for 10 days. [facility] acetaminoph en-codeine 300-30 mg tablet 09-08 00:00: 00 Yes [id number] 1{tbl} Take 1 tablet by mouth 2 (two) times daily as needed for Pain (scale 7-10). Indication s: acute pain, left knee pain [facility] escitalopra m oxalate (LEXAPRO) 10 mg tablet 09-08 00:00: 00 11-02 00:00 :00 No [id number] 10mg Take 1 tablet by mouth in the morning. [facility] insulin NPH (NOVOLIN N NPH U-100 INSULIN) 100 unit/mL injection 09-06 00:00: 00 11-16 00:00 :00 No [id number] INJECT 12 UNITS SUBCUTANEO USLY IN THE MORNING AND 10 UNITS IN THE EVENING [facility] insulin NPH (NOVOLIN N NPH U-100 INSULIN) 100 unit/mL injection 08-31 00:00: 00 09-06 00:00 :00 No [id number] INJECT 12 UNITS SUBCUTANEO USLY IN THE MORNING AND 7 UNITS IN THE EVENING [facility] MYCOPHENOLA TE 250 mg capsule 5-21 00:00: 00 01-27 00:00 :00 No [id number] 250mg TAKE 1 CAPSULE BY MOUTH EVERY 12 HOURS. [facility] SERTraline 50 mg tablet 5-07 00:00: 00 09-08 00:00 :00 No [id number] 50mg Take 1 tablet by mouth in the morning. [facility] NOVOLIN N NPH U-100 INSULIN 100 unit/mL injection 4-04 00:00: 00 08-30 00:00 :00 No [id number] INJECT 12 UNITS SUBCUTANEO USLY IN THE MORNING AND 7 UNITS IN THE EVENING [facility] MULTIVITAMI N ORAL 06-24 10:06: 10 01-12 00:00 :00 No 1{tbl} Take 1 tablet by mouth in the morning. [facility] Flaxseed Oil (FLAXSEED OIL) 1,000 mg Cap 06-24 10:03: 53 06-24 00:00 :00 No [id number] 3000mg Take 3,000 mg by mouth daily. [facility] biotin 1 mg Cap 06-24 10:01: 14 Yes 1{capsu le} Take 1 capsule by mouth daily. [facility] levothyroxi ne (SYNTHROID) 50 mcg tablet 19 00:00: 00 11-16 00:00 :00 No [id number] TAKE ONE (1) TABLET BY MOUTH EVERY MORNING. [facility] tacrolimus 0.5 mg capsule -15 00:00: 00 01-27 00:00 :00 No [id number] Take 2 capsules by mouth every morning AND 1 capsule every evening. z94.0 [facility] pantoprazol e 40 mg EC tablet 3-11 00:00: 00 Yes [id number] 40mg Take 1 tablet by mouth in the morning. [facility] atorvastati n 80 mg tablet -11 00:00: 00 11-18 00:00 :00 No [id number] 80mg Take 1 tablet by mouth at bedtime. [facility] insulin aspart RAPID (NOVOLOG U-100 INSULIN ASPART) 100 unit/mL injection 3-11 00:00: 00 11-16 00:00 :00 No [id number] Inject 8 units daily before breakfast. Inject 12 units daily with dinner. If blood sugar is less than 80 skip insulin. If blood sugar is between 80 and 120 take only half dose of the insulin. DX E11.65 [facility] Insulin NPH Human Recomb (HUMULIN N NPH INSULIN KWIKPEN) 100 unit/mL (3 mL) injection 06-07 00:00: 00 09-06 00:00 :00 No [id number] Inject 19 units at 9am and 5 units at 9pm [facility] metoprolol succinate XL 25 mg 24 hr tablet 04-06 00:00: 00 Yes [id number] 12.5mg Take 0.5 tablets by mouth in the morning. [facility] insulin NPH (HUMULIN N) injection 5 Units 2022-03 00:00: 00 Yes 5U 5 Units, Subcutaneo us, DINNER, First dose on 03/28/23 at 1800, Until Discontinu ed [facility] insulin lispro (human) (HumaLOG U-100) injection 10 Units 2022-03 19:15: 00 03-28 19:09 :00 No 10U 10 Units, Subcutaneo us, ONCE, 1 dose, On 03/28/23 at 1315, JOSE CRUZ [facility] Flaxseed Oil (FLAXSEED OIL) 1,000 mg Cap 2022-03 18:40: 36 Yes [id number] 3000mg Take 3,000 mg by mouth daily. [facility] MULTIVITAMI N ORAL 2022-03 18:40: 36 Yes 1{tbl} Take 1 tablet by mouth in the morning. [facility] biotin 1 mg Cap 2022-03 18:40: 36 Yes 1{capsu le} Take 1 capsule by mouth daily. [facility] pantoprazol e (PROTONIX) EC tablet 40 mg 2022-03 15:00: 00 Yes 40mg 40 mg, Oral, DAILY, First dose on 03/28/23 at 0900, Until Discontinu ed [facility] isosorbide mononitrate (IMDUR) 24 hr tablet 30 mg 2022-03 15:00: 00 Yes 30mg 30 mg, Oral, DAILY, First dose on 03/28/23 at 0900, Until Discontinu ed, Routine [facility] lisinopriL (PRINIVIL,Z ESTRIL) tablet 5 mg 2022-03 15:00: 00 Yes 5mg 5 mg, Oral, DAILY, First dose on 03/28/23 at 0900, Until Discontinu ed [facility] cital[facility] (CELEXA) tablet 20 mg 2022-03 15:00: 00 Yes 20mg 20 mg, Oral, DAILY, First dose on 03/28/23 at 0900, Until Discontinu ed, Routine [facility] levothyroxi ne (SYNTHROID) tablet 50 mcg 2022-03 12:00: 00 Yes 50ug 50 mcg, Oral, QAM-0600, First dose on 03/28/23 at 0600, Until Discontinu ed, Routine [facility] heparin (porcine) injection 5,000 Units 2022-03 04:00: 00 Yes 5000U 5,000 Units, Subcutaneo us, Q8H, First dose on Thu03/27/23 at 2200, Until Discontinu ed, Routine [facility] Sliding Scale Insulin - Lispro (HumaLOG) 2022-03 03:00: 00 Yes Subcutaneo us, TID MEALS+HS, First dose on Thu03/27/23 at 2100, Until Discontinu ed, Routine [facility] cyclobenzap rine (FLEXERIL) tablet 10 mg 2022-03 03:00: 00 Yes 10mg 10 mg, Oral, QHS, First dose on Thu03/27/23 at 2100, Until Discontinu ed, Routine [facility] atorvastati n (LIPITOR) tablet 80 mg 2022-03 03:00: 00 Yes 80mg 80 mg, Oral, QHS, First dose on Thu03/27/23 at 2100, Until Discontinu ed, Routine [facility] tacrolimus (PROGRAF) capsule 0.5 mg 2022-03 02:00: 00 Yes .5mg 0.5 mg, Oral, BID, First dose on Thu03/27/23 at 2000, Until Discontinu ed, Routine
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 hydrocortis one (CORTEF) tablet 20 mg 2022-03 02:00: 00 Yes 20mg 20 mg, Oral, BID, First dose on Thu03/27/23 at 2000, Until Discontinu ed, Routine [facility] budesonide- formoteroL (SYMBICORT) 80-4.5 mcg/actuati on inhaler 2 Puff 2022-03 02:00: 00 Yes 2{puff} 2 Puff, Inhalation , BID, First dose on Thu03/27/23 at 1999, Until Discontinu ed, Routine [facility] acyclovir (ZOVIRAX) capsule 400 mg 2022-03 02:00: 00 Yes 400mg 400 mg, Oral, BID, First dose on Thu03/27/23 at 1999, Until Discontinu ed, JOSE CRUZ [facility] hydralAZINE (APRESOLINE ) injection 10 mg 2022-03 00:36: 39 Yes 10mg 10 mg, Slow IV Push, Q6HPRN, Starting on Thu03/27/23 at 1836, Until Discontinu ed, Routine, SBP > 170 or DBP > 100
Ind ication: Hypertensi ve Emergency [facility] morpHINE (4 mg/mL) injection 4 mg 2022-03 00:36: 38 Yes 4mg 4 mg, Slow IV Push, Q4HPRN, Starting on Thu03/27/23 at 1836, Until Discontinu ed, Routine, Pain (scale 7-10) [facility] HYDROcodone -acetaminop hen (NORCO 5) 5-325 mg tablet 1 tablet 2022-03 00:36: 38 Yes 1{tbl} 1 tablet, Oral, Q6HPRN, Starting on Thu03/27/23 at 1836, Until Discontinu ed, Routine, Pain (scale 4-6) [facility] ondansetron (ZOFRAN (PF)) injection 4 mg 2022-03 00:36: 38 Yes 4mg 4 mg, Slow IV Push, Q6HPRN, Starting on Thu03/27/23 at 1836, Until Discontinu ed, Routine, Nausea and Vomiting (N/V) [facility] glucagon (GLUCAGEN DIAGNOSTIC KIT) injection 1 mg 2022-03 00:35: 56 Yes 1mg 1 mg, Intramuscu lar, PRN, Starting on Thu03/27/23 at 1835, Until Discontinu ed, JOSE CRUZ, Blood Glucose < or = 70 mg/dL and patient is NPO, unable to swallow or has mental changes. [facility] dextrose 50 % in water (D50W) injection 25 mL 2022-03 00:35: 56 Yes 25mL 25 mL, Slow IV Push, PRN, Starting on Thu03/27/23 at 1835, Until Discontinu ed, JOSE CRUZ, Blood Glucose < or = 70 mg/dL and patient is NPO, unable to swallow or has mental status changes. [facility] albuterol (VENTOLIN) inhaler 2 Puff 2022-03 00:33: 01 Yes 2{puff} 2 Puff, Inhalation , Q6HPRN, Starting on Thu03/27/23 at 1833, Until Discontinu ed, Routine, Wheezing, Shortness of Breath [facility] ondansetron (ZOFRAN (PF)) injection 2022-03 22:14: 04 03-27 22:28 :17 No ONCE INTRA PROCEDURE, Starting on Thu03/27/23 at 1614, Until Thu03/27/23 at 1628, Routine, CV Intraproce dure [facility] iopamidol (ISOVUE-370 ) injection 2022-03 22:08: 19 03-27 22:28 :17 No Intravenou s, ONCE INTRA PROCEDURE, Starting on Thu03/27/23 at 1608, Until Thu03/27/23 at 1628, Routine, CV Intraproce dure [facility] lidocaine 1% (PF) (XYLOCAINE) injection 2022-03 21:43: 27 03-27 22:28 :17 No ONCE INTRA PROCEDURE, Starting on Thu03/27/23 at 1543, Until Thu03/27/23 at 1628, Routine, CV Intraproce dure [facility] FENTanyl PF (SUBLIMAZE (PF)) injection 2022-03 21:39: 09 03-27 22:28 :17 No Slow IV Push, ONCE INTRA PROCEDURE, Starting on Thu03/27/23 at 1539, Until Thu03/27/23 at 1628, Routine, CV Intraproce dure [facility] midazolam (VERSED) injection 2022-03 21:39: 02 03-27 22:28 :17 No IV Push, ONCE INTRA PROCEDURE, Starting on Thu03/27/23 at 1539, Until Thu03/27/23 at 1628, Routine, CV Intraproce dure [facility] diphenhydrA MINE (BENADRYL) injection 50 mg 2022-03 20:13: 00 03-27 19:48 :00 No 50mg 50 mg, Intravenou s, ONCE, 1 dose, On Thu03/27/23 at 1415, Routine [facility] ALPRAZolam (XANAX) tablet 0.5 mg 2022-03 20:00: 00 03-27 22:32 :51 No .5mg 0.5 mg, Oral, TID, First dose on Thu03/27/23 at 1400, Until Discontinu ed, Routine [facility] insulin NPH and regular human 70-30 (70-30 U-100 INSULIN) 100 unit/mL (70-30) injection 9 Units 2022-03 15:30: 00 03-27 14:53 :00 No [id number] 9U 9 Units, Subcutaneo us, ONCE, 1 dose, On Thu03/27/23 at 0930, Routine [facility] aspirin chewable tablet 81 mg 2022-03 15:00: 00 03-27 14:22 :00 No [id number] 81mg 81 mg, Oral, ONCE, 1 dose, On Thu03/27/23 at 0900, Routine [facility] predniSONE 50 mg tablet 2022-03 00:00: 00 03-28 05:59 :00 No 50mg Take 1 tablet by mouth every 6 (six) hours for 3 doses. Indication s: iodine allergy prophylaxi s [facility] SYNTHROID 50 mcg tablet 2022-03 00:00: 00 06-15 00:00 :00 No [id number] TAKE ONE (1) TABLET BY MOUTH EVERY MORNING. [facility] levothyroxi ne (SYNTHROID) 50 mcg tablet 2022-03 00:00: 00 06-15 00:00 :00 No [id number] TAKE ONE (1) TABLET BY MOUTH EVERY MORNING. [facility] enalapril 2.5 mg tablet 2022-03 00:00: 00 Yes [id number] 2.5mg Take 1 tablet by mouth in the morning. [facility] insulin lispro, human, (HUMALOG U-100 INSULIN) 100 unit/mL injection 2022-03 00:00: 00 06-07 00:00 :00 No inject 10 Units under the skin 2 (two) times daily before breakfast and dinner. If your BG 80 - 120 take half your insulin, if your BG <80 do not take any insulin for diagnosis E11.65. [facility] Blood-Gluco se Sensor (FREESTYLE KARLA 3 SENSOR) Debbie 2022-03 2-05 00:00: 00 11-16 00:00 :00 No [id number] Use as directed every 2 weeks [facility] Insulin NPH Human Recomb (HUMULIN N NPH INSULIN KWIKPEN) 100 unit/mL (3 mL) injection 2022-03 2- 00:00: 00 06-07 00:00 :00 No [id number] Inject 19 units at 9am and 5 units at 9pm [facility] OMEPRAZOLE 40 mg capsule 2022-03 2- 00:00: 00 06-07 00:00 :00 No [id number] TAKE ONE (1) CAPSULE(S) BY MOUTH EVERY MORNING. [facility] furosemide (LASIX) 20 mg tablet 2022-03 00:00: 00 Yes [id number] 20mg Take 1 tablet by mouth in the morning. Or as needed for swelling. [facility] isosorbide mononitrate 30 mg 24 hr tablet 2022-03 00:00: 00 06-24 00:00 :00 No [id number] 30mg Take 1 tablet by mouth in the morning. [facility] insulin aspart RAPID (NOVOLOG U-100 INSULIN ASPART) 100 unit/mL injection 2022-03 0-25 00:00: 00 06-07 00:00 :00 No Inject 8 units daily before breakfast. Inject 12 units daily with dinner. If blood sugar is less than 80 skip insulin. If blood sugar is between 80 and 120 take only half dose of the insulin. DX E11.65 [facility] Insulin NPH Human Recomb (HUMULIN N NPH INSULIN KWIKPEN) 100 unit/mL (3 mL) injection 2022-03 0-17 00:00: 00 03-03 00:00 :00 No 19U inject 19 Units under the skin every morning. [facility] cyanocobala min (DODEX) injection 2,000 mcg 2022-03 0-11 17:00: 00 01-07 16:22 :00 No [id number] 2000ug [facility] insulin lispro (HUMALOG KWIKPEN INSULIN) 100 unit/mL pen injector 2022-03 00:00: 00 Yes [id number] 10U inject 10 Units under the skin 2 (two) times daily before breakfast and dinner. If your BG 80 - 120 take half your insulin, if your BG <80 do not take any insulin for diagnosis E11.65. [facility] proMETHazin e 25 mg tablet 2022-03 00:00: 00 Yes [id number] TAKE ONE (1) TABLET(S) BY MOUTH EVERY SIX HOURS NEEDED FOR NAUSEA AND VOMITING. [facility] cyanocobala min 1,000 mcg/mL injection 2022-03 00:00: 00 Yes [id number] 1000ug inject 1 mL under the skin every 14 (fourteen) days. [facility] Syringe-Nee dle, Safety,Disp Un 3 mL 25 gauge x 5/8" Syrg 2022-03 00:00: 00 Yes [id number] Use as directed [facility] hydrocortis one 10 mg tablet 2022-03 00:00: 00 11-16 00:00 :00 No [id number] TAKE TWO (2) TABLET(S) BY MOUTH EVERY MORNING AND ONE-HALF (1/2) TABLET(S) AROUND 3PM DAILY. [facility] insulin lispro (HUMALOG KWIKPEN INSULIN) 100 unit/mL pen injector 2022-03 00:00: 00 06-07 00:00 :00 No [id number] 10U inject 10 Units under the skin 2 (two) times daily before breakfast and dinner. If your BG 80 - 120 take half your insulin, if your BG <80 do not take any insulin for diagnosis E11.65. [facility] hydrocortis one 10 mg tablet 2022-03 0 00:00: 00 01-07 00:00 :00 No TAKE TWO (2) TABLET(S) BY MOUTH EVERY MORNING AND ONE-HALF (1/2) TABLET(S) AROUND 3PM DAILY. [facility] citalopram 20 mg tablet 2022-03 0 00:00: 00 08-03 00:00 :00 No [id number] 20mg Take 1 tablet by mouth in the morning. [facility] levothyroxi ne (SYNTHROID) 50 mcg tablet 2022-03 0 00:00: 00 03-17 00:00 :00 No [id number] TAKE ONE (1) TABLET BY MOUTH EVERY MORNING. [facility] SYNTHROID 50 mcg tablet 2022-03 0 00:00: 00 01-02 00:00 :00 No [id number] TAKE ONE (1) TABLET BY MOUTH EVERY MORNING. [facility] insulin lispro (HUMALOG KWIKPEN INSULIN) 100 unit/mL pen injector 12-25 00:00: 00 01-07 00:00 :00 No [id number] 10U inject 10 Units under the skin 2 (two) times daily before breakfast and dinner. If your BG 80 - 120 take half your insulin, if your BG <80 do not take any insulin for diagnosis E11.65. [facility] insulin lispro (HUMALOG KWIKPEN INSULIN) 100 unit/mL pen injector 12-25 00:00: 00 01-07 00:00 :00 No [id number] 10U inject 10 Units under the skin 2 (two) times daily before breakfast and dinner. If your BG 80 - 120 take half your insulin, if your BG <80 do not take any insulin for diagnosis E11.65. [facility] insulin aspart RAPID 100 unit/mL injection 12-25 00:00: 00 01-01 00:00 :00 No INJECT 10 UNITS SUBCUTANEO USLY TWICE DAILY BEFORE BREAKFAST AND DINNER [facility] Insulin Syringe-Nee dle U-100 (BD INSULIN SYRINGE ULTRA-FINE) 1 mL 31 gauge x 5/16 Syrg 12-23 00:00: 00 11-16 00:00 :00 No [id number] Use as directed to inject insulin for diagnosis E10.29 [facility] flash glucose sensor (FREESTYLE KARLA 2 SENSOR) Kit 12-23 00:00: 00 03-03 00:00 :00 No [id number] 1{each} inject 1 Each under the skin every 14 (fourteen) days. Use for diagnosis E10.29 [facility] insulin aspart RAPID (NOVOLOG U-100 INSULIN ASPART) 100 unit/mL injection 12-23 00:00: 00 12-25 00:00 :00 No [id number] 10U inject 10 Units under the skin 2 (two) times daily before breakfast and dinner. For diagnosis E11.65 [facility] Insulin Glargine (LANTUS SOLOSTAR U-100 INSULIN) 100 unit/mL (3 mL) injection 12-19 00:00: 00 01-13 00:00 :00 No [id number] 19U inject 19 Units under the skin with evening meal. Sig: inject 19 Units under the skin with evening meal. If your BG 80 - 120 take half your insulin, if your BG <80 do not take any insulin. [facility] Insulin Glargine (LANTUS SOLOSTAR U-100 INSULIN) 100 unit/mL (3 mL) injection 12-19 00:00: 00 01-13 00:00 :00 No [id number] 19U inject 19 Units under the skin with evening meal. Sig: inject 19 Units under the skin with evening meal. If your BG 80 - 120 take half your insulin, if your BG <80 do not take any insulin. [facility] insulin aspart U-100 (NOVOLOG FLEXPEN U-100 INSULIN) 100 unit/mL (3 mL) injection 12-19 00:00: 00 12-23 00:00 :00 No [id number] 6U inject 6 Units under the skin in the morning and 6 Units in the evening. If your BG 80 - 120 take half your insulin, if your BG <80 do not take any insulin. [facility] ACYCLOVIR 200 mg capsule 11-24 00:00: 00 12-09 00:00 :00 No [id number] TAKE TWO (2) CAPSULE(S) BY MOUTH IN THE MORNING AND 2 CAPSULES IN THE EVENING. [facility] albuterol 90 mcg/actuati on inhaler 11-17 00:00: 00 Yes [id number] 2{puff} Inhale 2 Puffs every 6 (six) hours as needed for Wheezing or Shortness of Breath. [facility] SYNTHROID 50 mcg tablet 10-26 00:00: 00 01-02 00:00 :00 No [id number] TAKE ONE (1) TABLET BY MOUTH EVERY MORNING. [facility] atorvastati n 80 mg tablet 10-24 00:00: 00 06-07 00:00 :00 No [id number] 80mg Take 1 tablet by mouth at bedtime. [facility] ENALAPRIL 2.5 mg tablet 10-20 00:00: 00 03-05 00:00 :00 No [id number] TAKE ONE (1) TABLET(S) BY MOUTH ONCE A DAY. [facility] Insulin Maurepas, Disposable, (NOVOFINE 32) 32 gauge x 1/4" Ndle 09-23 00:00: 00 Yes [id number] Use as directed to inject insulin, [facility] Insulin Maurepas, Disposable, (NOVOFINE 32) 32 gauge x 1/4" Ndle 09-23 00:00: 00 11-16 00:00 :00 No [id number] Use as directed to inject insulin, [facility] flash glucose sensor (FREESTYLE KARLA 2 SENSOR) Kit 09-23 00:00: 00 12-23 00:00 :00 No [id number] 1{each} inject 1 Each under the skin every 14 (fourteen) days. E11.65 [facility] insulin lispro (HUMALOG KWIKPEN INSULIN) 100 unit/mL pen injector 09-23 00:00: 00 12-19 00:00 :00 No [id number] 6U inject 6 Units under the skin in the morning and 6 Units in the evening. If your BG 80 - 120 take half your insulin, if your BG <80 do not take any insulin.E1 1.65 [facility] Insulin NPH Human Recomb (HUMULIN N NPH INSULIN KWIKPEN) 100 unit/mL (3 mL) injection 09-23 00:00: 00 12-19 00:00 :00 No [id number] 19U inject 19 Units under the skin with evening meal. If your BG 80 - 120 take half your insulin, if your BG <80 do not take any insulin. [facility] flash glucose sensor (FREESTYLE KARLA 2 SENSOR) Kit 09-15 00:00: 00 09-23 00:00 :00 No [id number] 1{each} 1 Each every 14 (fourteen) days. [facility] Insulin NPH Human Recomb (HUMULIN N NPH INSULIN KWIKPEN) 100 unit/mL (3 mL) injection 09-12 00:00: 00 09-23 00:00 :00 No [id number] inject 12 Units under the skin every morning for 30 days, THEN 7 Units every evening for 30 days. [facility] insulin lispro (HUMALOG KWIKPEN INSULIN) 100 unit/mL pen injector 09-12 00:00: 00 09-23 00:00 :00 No [id number] 6U inject 6 Units under the skin in the morning and 6 Units at noon and 6 Units in the evening. inject before meals. [facility] cyanocobala min (DODEX) injection 2,000 mcg 09-10 17:30: 00 09-10 16:24 :00 No [id number] 2000ug [facility] Flaxseed Oil (FLAXSEED OIL) 1,000 mg Cap 09-10 10:13: 36 Yes [id number] 3000mg Take 3,000 mg by mouth daily. [facility] MULTIVITAMI N ORAL 09-10 10:13: 36 Yes Take by mouth. [facility] biotin 1 mg Cap 09-10 10:13: 36 Yes 1{capsu le} Take 1 capsule by mouth daily. [facility] insulin lispro (HUMALOG KWIKPEN INSULIN) 100 unit/mL pen injector 09-10 00:00: 00 09-12 00:00 :00 No [id number] 6U inject 6 Units under the skin in the morning and 6 Units at noon and 6 Units in the evening. inject before meals. [facility] Insulin NPH Human Recomb (HUMULIN N NPH INSULIN KWIKPEN) 100 unit/mL (3 mL) injection 14 00:00: 00 09-12 00:00 :00 No [id number] inject 12 Units under the skin every morning for 30 days, THEN 7 Units every evening for 30 days. [facility] Flaxseed Oil (FLAXSEED OIL) 1,000 mg Cap 09-01 10:21: 24 Yes [id number] 3000mg Take 3,000 mg by mouth daily. [facility] MULTIVITAMI N ORAL 09-01 10:21: 17 Yes Take by mouth. [facility] biotin 1 mg Cap 09-01 10:21: 17 Yes 1{capsu le} Take 1 capsule by mouth daily. [facility] tacrolimus 0.5 mg capsule 08-13 00:00: 00 Yes [id number] .5mg Take 1 capsule by mouth in the morning and 1 capsule in the evening. z94.0 [facility] mycophenola te 250 mg capsule 08-13 00:00: 00 08-17 00:00 :00 No [id number] 250mg Take 1 capsule by mouth every 12 (twelve) hours. [facility] tacrolimus 0.5 mg capsule 08-13 00:00: 00 06-11 00:00 :00 No [id number] .5mg Take 1 capsule by mouth in the morning and 1 capsule in the evening. z94.0 [facility] SYNTHROID 50 mcg tablet 08-13 00:00: 00 10-26 00:00 :00 No [id number] TAKE ONE (1) TABLET BY MOUTH EVERY MORNING. [facility] predniSONE 10 mg tablet 08-12 00:00: 00 09-23 00:00 :00 No [id number] 10mg Take 1 tablet by mouth in the morning. [facility] Flaxseed Oil (FLAXSEED OIL) 1,000 mg Cap 08-11 17:42: 26 Yes [id number] 3000mg Take 3,000 mg by mouth daily. [facility] MULTIVITAMI N ORAL 08-11 17:42: 26 Yes Take by mouth. [facility] biotin 1 mg Cap 08-11 17:42: 26 Yes 1{capsu le} Take 1 capsule by mouth daily. [facility] Cholecalcif haroldo, Vitamin D3, 50 mcg (2,000 unit) tablet 08-11 15:02: 32 08-11 00:00 :00 No 2000mg Take 2,000 mg by mouth 2 (two) times daily. [facility] ondansetron (ZOFRAN (PF)) injection 4 mg 08-11 14:30: 00 08-11 13:45 :00 No 4mg 4 mg, Slow IV Push, ONCE, On Thu08/11/22 at 0930, For 1 dose
Do ses of ondansetro n 16 mg and above need to be administer ed via IV piggyback. For Dose >=24mg ECG monitoring is advisable.
[facility] insulin NPH (HUMULIN N) injection 14 Units 08-11 14:00: 00 Yes 14U 14 Units, Subcutaneo us, QAM, First dose (after last modificati on) on Thu08/11/22 at 0900, Until Discontinu ed, Routine [facility] glycerin/mi neral oil (AGLO ENEMA) (COMPOUNDED ) Enem 225 mL 08-11 05:00: 00 08-11 10:13 :00 No 225mL 225 mL, Rectal, ONCE, 1 dose, On Thu08/11/22 at 0000, Routine [facility] insulin NPH (HUMULIN N) injection 6 Units 08-11 02:00: 00 Yes 6U 6 Units, Subcutaneo us, QHS, First dose (after last modificati on) on Thu08/10/22 at 2100, Until Discontinu ed, Routine [facility] polyethylen e glycol 3350 powder 17 g 08-11 01:00: 00 Yes 17g 17 g, Oral, BID, First dose (after last modificati on) on 08/10/22 at 2000, Until Discontinu ed, Routine [facility] aspirin 81 mg chewable tablet aspirin 81 mg chewable tablet 08-11 00:00: 00 Yes [id number] 81mg Take 1 tablet by mouth in the morning. [facility] budesonide- formoteroL (SYMBICORT) 80-4.5 mcg/actuati on inhaler budesonide- formoteroL (SYMBICORT) 80-4.5 mcg/actuati on inhaler 08-11 00:00: 00 Yes [id number] 2{puff} Inhale 2 Puffs in the morning and 2 Puffs in the evening. [facility] cyclobenzap rine 10 mg tablet cyclobenzap rine 10 mg tablet 08-11 00:00: 00 Yes [id number] 10mg Take 1 tablet by mouth at bedtime. [facility] fluticasone propionate 50 mcg/actuati on nasal spray fluticasone propionate 50 mcg/actuati on nasal spray 08-11 00:00: 00 Yes [id number] 1{spray } Use 1 [place] in each nostril in the morning and 1 [place] in the evening. [facility] polyethylen e glycol 3350 (CLEARLAX) 17 gram/dose powder polyethylen e glycol 3350 (CLEARLAX) 17 gram/dose powder 08-11 00:00: 00 Yes [id number] 17g Take 17 g by mouth in the morning and 17 g in the evening. [facility] benzonatate (TESSALON PERLES) 100 mg capsule 08-11 00:00: 00 06-24 00:00 :00 No [id number] 100mg Take 1 capsule by mouth every 8 (eight) hours as needed for Cough. [facility] cholecalcif haroldo, vitamin D3, 25 mcg (1,000 unit) tablet 08-11 00:00: 00 06-24 00:00 :00 No [id number] 2000U Take 2 tablets by mouth in the morning and 2 tablets in the evening. [facility] omeprazole 40 mg capsule 08-11 00:00: 00 03-02 00:00 :00 No [id number] 40mg Take 1 capsule by mouth in the morning. [facility] hydrocortis one 10 mg tablet 08-11 00:00: 00 01-05 00:00 :00 No TAKE TWO (2) TABLET(S) BY MOUTH ONCE A DAY IN THE MORNING AND 1/2 TABLET AROUND 3. [facility] citalopram 20 mg tablet 08-11 00:00: 00 01-02 00:00 :00 No [id number] 20mg Take 1 tablet by mouth in the morning. [facility] Insulin NPH Human Recomb (HUMULIN N NPH INSULIN KWIKPEN) 100 unit/mL (3 mL) injection 08-11 00:00: 00 12-19 00:00 :00 No [id number] 5U inject 5 Units under the skin every evening. [facility] acyclovir 200 mg capsule 08-11 00:00: 00 11-24 00:00 :00 No [id number] 400mg Take 2 capsules by mouth in the morning and 2 capsules in the evening. [facility] albuterol 90 mcg/actuati on inhaler 08-11 00:00: 00 11-17 00:00 :00 No [id number] 2{puff} Inhale 2 Puffs every 6 (six) hours as needed for Wheezing or Shortness of Breath. [facility] atorvastati n 80 mg tablet 08-11 00:00: 00 10-24 00:00 :00 No [id number] 80mg Take 1 tablet by mouth at bedtime. [facility] enalapril 2.5 mg tablet 08-11 00:00: 00 10-20 00:00 :00 No [id number] 2.5mg Take 1 tablet by mouth in the morning. [facility] Insulin Maurepas, Disposable, (NOVOFINE 32) 32 gauge x 1/4" Ndle 08-11 00:00: 00 09-23 00:00 :00 No [id number] Use as directed to inject insulin, [facility] Insulin Maurepas, Disposable, (NOVOFINE 32) 32 gauge x 1/4" Ndle 08-11 00:00: 00 09-23 00:00 :00 No [id number] Use as directed to inject insulin, [facility] insulin lispro (HUMALOG KWIKPEN INSULIN) 100 unit/mL pen injector 08-11 00:00: 00 09-10 00:00 :00 No [id number] 5U inject 5 Units under the skin in the morning and 5 Units at noon and 5 Units in the evening. inject before meals. [facility] Insulin NPH Human Recomb (HUMULIN N NPH INSULIN KWIKPEN) 100 unit/mL (3 mL) injection 08-11 00:00: 00 09-10 00:00 :00 No [id number] 12U inject 12 Units under the skin every morning and inject 5 Units under the skin every evening. [facility] mycophenola te 250 mg capsule 08-11 00:00: 00 08-13 00:00 :00 No [id number] 250mg Take 1 capsule by mouth every 12 (twelve) hours. [facility] tacrolimus 0.5 mg capsule 08-11 00:00: 00 08-13 00:00 :00 No [id number] .5mg Take 1 capsule by mouth in the morning and 1 capsule in the evening. z94.0 [facility] levothyroxi ne (SYNTHROID) 50 mcg tablet 08-11 00:00: 00 08-13 00:00 :00 No [id number] 50ug Take 1 tablet by mouth every morning. Brand name only [facility] Insulin NPH Human Recomb (HUMULIN N NPH INSULIN KWIKPEN) 100 unit/mL (3 mL) injection 08-11 00:00: 00 08-11 00:00 :00 No [id number] 14U inject 14 Units under the skin every morning and inject 6 Units under the skin every evening. [facility] Insulin NPH Human Recomb (HUMULIN N NPH INSULIN KWIKPEN) 100 unit/mL (3 mL) injection 08-11 00:00: 00 08-11 00:00 :00 No [id number] 6U inject 6 Units under the skin every evening. [facility] insulin lispro (HUMALOG KWIKPEN INSULIN) 100 unit/mL pen injector 08-11 00:00: 00 08-11 00:00 :00 No [id number] 6U inject 6 Units under the skin in the morning and 6 Units at noon and 6 Units in the evening. inject before meals. [facility] polyethylen e glycol 3350 powder 17 g 08-10 19:30: 00 08-10 19:37 :00 No 17g 17 g, Oral, ONCE, 1 dose, On 08/10/22 at 1445, Routine [facility] FENTanyl PF (SUBLIMAZE (PF)) injection 25 mcg 08-10 19:05: 00 08-10 19:37 :00 No 25ug 25 mcg, Slow IV Push, ONCE, 1 dose, On 08/10/22 at 1415, Routine [facility] bisacodyL (DULCOLAX) suppository 10 mg 08-10 17:40: 35 Yes 10mg 10 mg, Rectal, QDAILYPRN, Starting on Thu08/10/22 at 1240, Until Discontinu ed, Routine, Constipati on unresolved by oral medication s [facility] Sliding Scale Insulin - Lispro (HumaLOG) 08-10 17:00: 00 Yes Subcutaneo us, TID MEALS+HS, First dose (after last modificati on) on 08/10/22 at 1200, Until Discontinu ed, Routine [facility] FENTanyl PF (SUBLIMAZE (PF)) injection 50 mcg 08-10 05:00: 00 08-10 04:34 :00 No 50ug 50 mcg, Slow IV Push, ONCE, 1 dose, On 08/10/22 at 0000, Routine [facility] insulin NPH (HUMULIN N) injection 5 Units 08-10 02:00: 00 08-10 15:16 :42 No 5U 5 Units, Subcutaneo us, QHS, First dose (after last modificati on) on 08/09/22 at 2100, Until Discontinu ed, Routine [facility] cyclobenzap rine (FLEXERIL) tablet 10 mg 08-10 01:00: 00 Yes 10mg 10 mg, Oral, BID, First dose (after last modificati on) on 08/09/22 at 2000, Until Discontinu ed, Routine [facility] Sliding Scale Insulin - Lispro (HumaLOG) 08-10 01:00: 00 08-10 15:16 :42 No Subcutaneo us, Q4H, First dose (after last modificati on) on 08/09/22 at 2000, Until Discontinu ed, Routine [facility] insulin lispro (human) (HumaLOG U-100) injection 4 Units 08-09 17:00: 00 08-10 15:16 :42 No 4U 4 Units, Subcutaneo us, TID MEALS, First dose (after last modificati on) on 08/09/22 at 1200, Until Discontinu ed, Routine [facility] insulin NPH (HUMULIN N) injection 10 Units 08-09 14:00: 00 08-10 15:16 :42 No 10U 10 Units, Subcutaneo us, QAM, First dose (after last modificati on) on 08/09/22 at 0900, Until Discontinu ed, Routine [facility] magnesium sulfate in water 4 gram/50 mL (8 %) IV Piggyback 4 g 08-09 12:30: 00 08-09 17:25 :00 No 4g 4 g, IV Piggyback, at 25 mL/hr Administer over 120 Minutes, ONCE, 1 dose, On Thu08/09/22 at 0730, Routine [facility] atorvastati n (LIPITOR) tablet 80 mg 08-09 02:00: 00 Yes 80mg 80 mg, Oral, QHS, First dose on Thu08/08/22 at 2100, Until Discontinu ed, Routine [facility] insulin NPH (HUMULIN N) injection 4 Units 08-09 02:00: 00 08-09 13:43 :51 No 4U 4 Units, Subcutaneo us, QHS, First dose on Thu08/08/22 at 2100, Until Discontinu ed, Routine [facility] cyclobenzap rine (FLEXERIL) tablet 10 mg 08-09 02:00: 00 08-09 22:52 :18 No 10mg 10 mg, Oral, QHS, First dose on Thu08/08/22 at 2100, Until Discontinu ed, Routine [facility] enoxaparin (LOVENOX) injection 40 mg 08-08 22:00: 00 Yes 40mg 40 mg, Subcutaneo us, DAILY, First dose on Thu08/08/22 at 1700, Until Discontinu ed, Routine [facility] insulin lispro (human) (HumaLOG U-100) injection 3 Units 08-08 22:00: 00 08-09 13:44 :11 No 3U 3 Units, Subcutaneo us, TID MEALS, First dose on Thu08/08/22 at 1700, Until Discontinu ed, Routine [facility] insulin NPH (HUMULIN N) injection 8 Units 08-08 18:45: 00 08-09 13:43 :37 No 8U 8 Units, Subcutaneo us, QAM, First dose on Thu08/08/22 at 1345, Until Discontinu ed, Routine [facility] albuterol (PROVENTIL) 2.5 mg /3 mL (0.083 %) nebulizer solution 2.5 mg 08-08 14:49: 39 Yes 2.5mg 2.5 mg, Inhalation , Q6HPRN, Starting on Thu08/08/22 at 0949, Until Discontinu ed, Routine, Wheezing, Shortness of Breath [facility] sennosides (SENOKOT) tablet 8.6 mg 08-08 14:00: 00 Yes 8.6mg 8.6 mg, Oral, DAILY, First dose on Thu08/08/22 at 0900, Until Discontinu ed, [facility] predniSONE (DELTASONE) tablet 10 mg 08-08 14:00: 00 Yes 10mg 10 mg, Oral, DAILY, First dose on Thu08/08/22 at 0900, Until Discontinu ed, Routine [facility] omeprazole (PRILOSEC) capsule 40 mg 08-08 14:00: 00 Yes 40mg 40 mg, Oral, DAILY, First dose on Thu08/08/22 at 0900, Until Discontinu ed [facility] enalapril (VASOTEC) tablet 2.5 mg 08-08 14:00: 00 Yes 2.5mg 2.5 mg, Oral, DAILY, First dose on Thu08/08/22 at 0900, Until Discontinu ed, Routine [facility] citalopram (CELEXA) tablet 20 mg 08-08 14:00: 00 Yes 20mg 20 mg, Oral, DAILY, First dose on Thu08/08/22 at 0900, Until Discontinu ed, Routine [facility] aspirin chewable tablet 81 mg 08-08 14:00: 00 Yes 81mg 81 mg, Oral, DAILY, First dose on Thu08/08/22 at 0900, Until Discontinu ed, Routine [facility] polyethylen e glycol 3350 powder 17 g 08-08 14:00: 00 08-10 14:17 :49 No 17g 17 g, Oral, DAILY, First dose on Thu08/08/22 at 0900, Until Discontinu ed, Routine [facility] tacrolimus (PROGRAF) capsule 0.5 mg 08-08 13:00: 00 Yes .5mg 0.5 mg, Oral, BID, First dose on Thu08/08/22 at 0800, Until Discontinu ed, Routine
tank crewmember approving Restricted medication : SAPPHIRE SEPULVEDA [facility] mycophenola te (CELLCEPT) capsule 250 mg 08-08 13:00: 00 Yes 250mg 250 mg, Oral, Q12H, First dose on Thu08/08/22 at 0800, Until Discontinu ed, Routine
tank crewmember approving Restricted medication : SAPPHIRE SEPULVEDA [facility] fluticasone propionate 50 mcg/actuati on nasal spray 1 [place] 08-08 13:00: 00 Yes 1{spray } 1 [place], Nasal, BID, First dose on Thu08/08/22 at 0800, Until Discontinu ed, Routine [facility] cholecalcif haroldo (vitamin D3) tablet 2,000 Units 08-08 13:00: 00 Yes 2000U 2,000 Units, Oral, BID, First dose on Thu08/08/22 at 0800, Until Discontinu ed [facility] budesonide- formoteroL (SYMBICORT) 80-4.5 mcg/actuati on inhaler 2 Puff 08-08 13:00: 00 Yes 2{puff} 2 Puff, Inhalation , BID, First dose on Thu08/08/22 at 0800, Until Discontinu ed, Routine [facility] acyclovir (ZOVIRAX) capsule 400 mg 08-08 13:00: 00 Yes 400mg 400 mg, Oral, BID, First dose on Thu08/08/22 at 0800, Until Discontinu ed, JOSE CRUZ [facility] Sliding Scale Insulin - Lispro (HumaLOG) 08-08 13:00: 00 08-09 22:39 :20 No Subcutaneo us, Q4H, First dose on Thu08/08/22 at 0800, Until Discontinu ed, Routine [facility] KCL (KLOR-CON M20) tablet 40 mEq 08-08 12:45: 00 08-08 13:55 :00 No 40meq 40 mEq, Oral, ONCE, 1 dose, On Thu08/08/22 at 0745, Routine [facility] levothyroxi ne (SYNTHROID) tablet 50 mcg 08-08 11:00: 00 Yes 50ug 50 mcg, Oral, QAM-0600, First dose on Thu08/08/22 at 0600, Until Discontinu ed, Routine [facility] dextrose 10% (D10W) bolus infusion 250 mL [...] blood glucose is < 80 mg/dL, repeat.
[facility] glucagon (GLUCAGEN DIAGNOSTIC KIT) injection 1 mg 08-08 10:33: 16 Yes 1mg 1 mg, Intramuscu lar, PRN, Starting on Thu08/08/22 at 0533, Until Discontinu ed, JOSE CRUZ, Blood Glucose < or = 70 mg/dL and patient is NPO, unable to swallow or has mental changes. [facility] acetaminoph en (TYLENOL) tablet 650 mg 08-08 10:32: 51 Yes 650mg 650 mg, Oral, Q6HPRN, Starting on Thu08/08/22 at 0532, Until Discontinu ed, Routine, Pain (scale 1-3) [facility] benzonatate (TESSALON PERLES) capsule 100 mg 08-08 10:26: 30 Yes 100mg 100 mg, Oral, Q8HPRN, Starting on Thu08/08/22 at 0526, Until Discontinu ed, Routine, Cough [facility] albuterol (VENTOLIN) inhaler 2 Puff 08-08 10:26: 24 Yes 2{puff} 2 Puff, Inhalation , Q6HPRN, Starting on Thu08/08/22 at 0526, Until Discontinu ed, Routine, Wheezing, Shortness of Breath [facility] FENTanyl PF (SUBLIMAZE (PF)) injection 50 mcg 08-08 07:15: 00 08-08 06:22 :00 No 50ug 50 mcg, Slow IV Push, ONCE, 1 dose, On Thu08/08/22 at 0215, Routine [facility] NaCl 0.9% (NS) bolus infusion 500 mL 08-08 05:30: 00 08-08 06:27 :00 No 500mL at 999 mL/hr, 500 mL, IV Infusion, ONCE, 1 dose, On Thu08/08/22 at 0030, STAT [facility] FENTanyl PF (SUBLIMAZE (PF)) injection 50 mcg 08-08 05:30: 00 08-08 05:31 :00 No 50ug 50 mcg, Slow IV Push, ONCE, 1 dose, On Thu08/08/22 at 0030, STAT [facility] NaCl 0.9% (NS) IV infusion 1,000 mL 08-08 04:30: 00 08-09 14:31 :01 No 1000mL at 999 mL/hr, Intravenou s, CONTINUOUS , Starting on Thu08/07/22 at 2330, Until 08/09/22 at 0931, Routine [facility] insulin regular human (HUMULIN R) injection 8 Units 08-08 04:15: 00 08-08 03:36 :00 No 8U 8 Units, Subcutaneo us, ONCE, 1 dose, On Thu08/07/22 at 2315, Routine
Indicatio n for insulin: Hyperglyce alexa [facility] Diclofenac Sodium 1 % gel 5-12 00:00: 00 06-24 00:00 :00 No APPLY 2-4 GRAMS TO THE AFFECTED AREA(S) THREE TIMES A DAY NEEDED FOR PAIN. [facility] methocarbam oL 500 mg tablet 4-19 00:00: 00 06-24 00:00 :00 No 500mg Take 1 tablet by mouth 4 (four) times daily. [facility] atorvastati n 80 mg tablet -18 00:00: 00 08-11 00:00 :00 No [id number] 80mg Take 1 tablet by mouth at bedtime. [facility] predniSONE 10 mg tablet 4-10 00:00: 00 08-11 00:00 :00 No Take 8 tablets by mouth daily for 3 days, THEN 6 tablets daily for 3 days, THEN 4 tablets daily for 3 days, THEN 2 tablets daily for 3 days, THEN 1 tablet daily for 30 days. [facility] albuterol 2.5 mg/0.5 mL nebulizer solution 06-10 00:00: 00 08-11 00:00 :00 No [id number] 2.5mg Inhale 0.5 mL every 6 (six) hours as needed for Wheezing or Shortness of Breath. [facility] budesonide- formoteroL (SYMBICORT) 80-4.5 mcg/actuati on inhaler 14 00:00: 00 08-11 00:00 :00 No [id number] 2{puff} Inhale 2 Puffs in the morning and 2 Puffs in the evening. [facility] clindamycin 150 mg capsule -14 00:00: 00 08-08 00:00 :00 No 450mg Take 3 capsules by mouth in the morning and 3 capsules at noon and 3 capsules in the evening. [facility] codeine-gua ifenesin 10-100 mg/5 mL oral solution -14 00:00: 00 06-18 04:59 :00 No [id number] 5mL Take 5 mL by mouth every 6 (six) hours as needed for Cough for up to 7 days. Indication s: acute pain, cough [facility] proMETHazin e 25 mg tablet 04-22 00:00: 01-07 00:00 :00 No [id number] TAKE ONE (1) TABLET(S) BY MOUTH EVERY SIX HOURS NEEDED FOR NAUSEA AND VOMITING. [facility] benzonatate (TESSALON PERLES) 100 mg capsule 04-22 00:00: 08-11 00:00 :00 No [id number] 100mg Take 1 capsule by mouth every 8 (eight) hours as needed for Cough. [facility] cyclobenzap rine 10 mg tablet 04-22 00:00: 00 08-11 00:00 :00 No [id number] 10mg Take 1 tablet by mouth at bedtime. [facility] clindamycin 300 mg capsule 04-22 00:00: 04-30 05:59 :00 No [id number] 300mg Take 1 capsule by mouth in the morning and 1 capsule at noon and 1 capsule in the evening. Do all this for 7 days. [facility] acyclovir 200 mg capsule 04-08 00:00: 00 08-11 00:00 :00 No [id number] 400mg Take 2 capsules by mouth in the morning and 2 capsules in the evening. [facility] Diclofenac Sodium 1 % gel 04-08 00:00: 08-08 00:00 :00 No [id number] Take 2-4 grams three times a day as needed for pain [facility] atorvastati n 80 mg tablet 04-08 00:00: 07-15 00:00 :00 No [id number] 80mg Take 1 tablet by mouth at bedtime. [facility] gabapentin 300 mg capsule 04-08 00:00: 04-22 00:00 :00 No [id number] 300mg Take 1 capsule by mouth in the morning and 1 capsule in the evening. [facility] albuterol 90 mcg/actuati on inhaler 2021-03 00:00: 00 08-11 00:00 :00 No [id number] 2{puff} Inhale 2 Puffs every 6 (six) hours as needed for Wheezing or Shortness of Breath. [facility] clindamycin 150 mg capsule 2021-03 00:00: 00 04-22 00:00 :00 No [id number] 450mg Take 3 capsules by mouth in the morning and 3 capsules at noon and 3 capsules in the evening. [facility] SYNTHROID 50 mcg tablet 2021-03 00:00: 00 08-11 00:00 :00 No [id number] 50ug Take 1 tablet by mouth every morning. Brand name only [facility] hydrocortis one 10 mg tablet 2021-03 00:00: 00 08-11 00:00 :00 No [id number] TAKE 2 TABLETS BY MOUTH ONCE DAILY IN THE MORNING AND 1/2 TABLET AROUND 3PM [facility] ACYCLOVIR 200 mg capsule 2021-03 00:00: 00 04-08 00:00 :00 No [id number] TAKE TWO (2) CAPSULE(S) BY MOUTH TWICE A DAY. [facility] Cholecalcif haroldo, Vitamin D3, 50 mcg (2,000 unit) tablet 2021-03 10:46: 56 Yes 2000mg Take 2,000 mg by mouth 2 (two) times daily. [facility] Flaxseed Oil (FLAXSEED OIL) 1,000 mg Cap 2021-03 10:46: 56 Yes [id number] 3000mg Take 3,000 mg by mouth daily. [facility] MULTIVITAMI N ORAL 2021-03 10:46: 56 Yes Take by mouth. [facility] biotin 1 mg Cap 2021-03 10:46: 56 Yes 1{capsu le} Take 1 capsule by mouth daily. [facility] MYCOPHENOLA TE 250 mg capsule 2021-03 00:00: 00 08-11 00:00 :00 No TAKE 1 CAPSULE BY MOUTH EVERY 12 HOURS*Z94. 0* [facility] ENALAPRIL 2.5 mg tablet 2021-03 00:00: 00 08-11 00:00 :00 No TAKE ONE (1) TABLET(S) BY MOUTH ONCE A DAY. [facility] ATORVASTATI N 80 mg tablet 2021-03 0 00:00: 00 04-08 00:00 :00 No [id number] TAKE ONE (1) TABLET(S) BY MOUTH AT BEDTIME. [facility] ciprofloxac in HCl (CIPRO) 500 mg tablet 2021-03 00:00: 00 01-11 04:59 :00 No 500mg Take 1 tablet by mouth every 12 (twelve) hours for 7 days. [facility] biotin 1 mg Cap 12-24 11:30: 43 Yes 1{capsu le} Take 1 capsule by mouth daily. [facility] MULTIVITAMI N ORAL 12-24 11:30: 41 Yes Take by mouth. [facility] Cholecalcif haroldo, Vitamin D3, (VITAMIN D-3) 2,000 unit Tab 12-24 11:30: 35 Yes 2000mg Take 2,000 mg by mouth 2 (two) times daily. [facility] Flaxseed Oil (FLAXSEED OIL) 1,000 mg Cap 12-24 11:30: 35 Yes [id number] 3000mg Take 3,000 mg by mouth daily. [facility] omeprazole 40 mg capsule 12-24 00:00: 00 08-11 00:00 :00 No [id number] 40mg Take 1 capsule by mouth in the morning. [facility] citalopram 20 mg tablet 12-24 00:00: 00 08-11 00:00 :00 No [id number] 20mg Take 1 tablet by mouth in the morning. [facility] methocarbam oL 500 mg tablet 12-24 00:00: 00 04-22 00:00 :00 No [id number] TAKE ONE (1) TABLET BY MOUTH FOUR TIMES DAILY. [facility] tacrolimus 0.5 mg capsule 12-13 00:00: 00 08-11 00:00 :00 No [id number] .5mg Take 1 capsule by mouth in the morning and 1 capsule in the evening. z94.0 [facility] furosemide (LASIX) 20 mg tablet 12-06 00:00: 00 02-25 00:00 :00 No [id number] 20mg Take 1 tablet by mouth in the morning. Or as needed for swelling. [facility] Cholecalcif haroldo, Vitamin D3, (VITAMIN D-3) 2,000 unit Tab 12-05 10:20: 03 Yes 2000mg Take 2,000 mg by mouth 2 (two) times daily. [facility] Flaxseed Oil (FLAXSEED OIL) 1,000 mg Cap 12-05 10:20: 01 Yes [id number] 3000mg Take 3,000 mg by mouth daily. [facility] MULTIVITAMI N ORAL 12-05 10:19: 29 Yes 1{tbl} Take 1 tablet by mouth in the morning. [facility] biotin 1 mg Cap 12-05 10:19: 07 Yes 1{capsu le} Take 1 capsule by mouth daily. [facility] tacrolimus 0.5 mg capsule 12-05 00:00: 12-13 00:00 :00 No [id number] .5mg Take 1 capsule by mouth in the morning and 1 capsule in the evening. z94.0 [facility] acyclovir 200 mg capsule 11-28 00:00: 00 02-06 00:00 :00 No [id number] TAKE TWO (2) CAPSULE(S) BY MOUTH TWICE A DAY. [facility] citalopram 20 mg tablet 11-28 00:00: 00 12-24 00:00 :00 No [id number] 20mg Take 1 tablet by mouth in the morning. [facility] TACROLIMUS 1 mg capsule 18 00:00: 00 12-05 00:00 :00 No 1mg TAKE 1 CAPSULE BY MOUTH EVERY 12 (TWELVE) HOURS. Z94.0 [facility] TACROLIMUS 0.5 mg capsule 18 00:00: 00 12-05 00:00 :00 No .5mg TAKE 1 CAPSULE BY MOUTH EVERY EVENING. Z94.0 [facility] proMETHazin e 25 mg tablet 08-27 00:00: 00 04-22 00:00 :00 No TAKE ONE (1) TABLET(S) BY MOUTH EVERY SIX HOURS NEEDED FOR NAUSEA AND VOMITING. [facility] methocarbam oL 500 mg tablet 08-27 00:00: 00 12-24 00:00 :00 No TAKE ONE (1) TABLET BY MOUTH FOUR TIMES DAILY. [facility] omeprazole 40 mg capsule 07-30 00:00: 00 12-24 00:00 :00 No [id number] 40mg Take 1 capsule by mouth daily. [facility] hydrocortis one 10 mg tablet 07-09 00:00: 00 02-18 00:00 :00 No [id number] TAKE 2 TABLETS BY MOUTH ONCE DAILY IN THE MORNING AND 1/2 TABLET AROUND 3PM [facility] SYNTHROID 50 mcg tablet 07-09 00:00: 00 02-18 00:00 :00 No [id number] 50ug Take 1 tablet by mouth every morning. Brand name only [facility] atorvastati n 80 mg tablet 07-08 00:00: 00 01-07 00:00 :00 No [id number] 80mg Take 1 tablet by mouth at bedtime. [facility] proMETHazin e 12.5 mg tablet 2020-03 00:00: 00 12-05 00:00 :00 No [id number] 12.5mg Take 1 tablet by mouth every 6 (six) hours as needed for Nausea and Vomiting (N/V). [facility] mycophenola te 250 mg capsule 2020-03 0 00:00: 00 01-31 00:00 :00 No 250mg Take 1 capsule by mouth every 12 (twelve) hours. [facility] enalapril 2.5 mg tablet 2020-03 00:00: 00 01-17 00:00 :00 No 2.5mg Take 1 tablet by mouth daily. [facility] levoFLOXaci n 750 mg tablet 12-04 00:00: 00 12-15 04:59 :00 No [id number] 750mg Take 1 tablet by mouth every 24 (twenty-fo ur) hours for 10 days. [facility] metoprolol succinate XL 25 mg 24 hr tablet 11-05 00:00: 00 12-06 04:59 :00 No [id number] 12.5mg Take 0.5 tablets by mouth daily for 30 days. [facility] levothyroxi ne (SYNTHROID) 50 mcg tablet 10-29 00:00: 00 12-11 00:00 :00 No [id number] 50ug Take 1 tablet by mouth every morning. Brand name only [facility] Omeprazole Magnesium 20 mg capsule 10-22 12:43: 04 10-22 00:00 :00 No Take by mouth. [facility] omeprazole 40 mg capsule 10-22 00:00: 00 07-30 00:00 :00 No [id number] 40mg Take 1 capsule by mouth daily. [facility] tacrolimus 0.5 mg capsule 10-18 00:00: 00 10-14 00:00 :00 No .5mg Take 1 capsule by mouth every evening. z94.0 [facility] tacrolimus 1 mg capsule 10-18 00:00: 00 10-14 00:00 :00 No 1mg Take 1 capsule by mouth every 12 (twelve) hours. z94.0 [facility] furosemide (LASIX) 20 mg tablet -19 00:00: 00 12-06 00:00 :00 No [id number] 20mg Take 1 tablet by mouth daily. Or as needed for swelling. [facility] citalopram 20 mg tablet 4-13 00:00: 00 07-09 00:00 :00 No [id number] TAKE 1 TABLET BY MOUTH ONCE DAILY FOR 90 DAYS [facility] enalapril 2.5 mg tablet 4-10 00:00: 00 01-16 00:00 :00 No TAKE ONE (1) TABLET(S) BY MOUTH IN THE EVENING. [facility] atorvastati n 80 mg tablet 3-31 00:00: 00 01-07 00:00 :00 No 80mg Take 1 tablet by mouth at bedtime. [facility] acyclovir 200 mg capsule - 00:00: 00 07-16 00:00 :00 No [id number] Patient to take TWO 200 mg tabs BID to equal an 800 mg daily dose. [facility] gabapentin 100 mg capsule - 00:00: 00 08-22 00:00 :00 No [id number] 300mg Take 3 capsules by mouth at bedtime. [facility] hydrocortis one 10 mg tablet - 00:00: 00 01-08 00:00 :00 No [id number] TAKE 2 TABLETS BY MOUTH ONCE DAILY IN THE MORNING AND 1 TABLET AROUND 3PM [facility] methocarbam oL 500 mg tablet 2019-03 00:00: 00 08-22 00:00 :00 No [id number] 500mg Take 1 tablet by mouth 4 (four) times daily as needed (muscle spasm). [facility] MYCOPHENOLA TE 250 mg capsule 2019-03 00:00: 00 01-16 00:00 :00 No TAKE 2 CAPSULES BY MOUTH EVERY 12 HOURS*Z94. 0* [facility] Flexeril 2019-03 03:29: 00 No Notes: (Same As: Flexeril) Konstantin Gracia Benadryl 2019-03 02:05: 00 No 25 mg, Route: IVP, ONCE, Dosing Weight 72.727, kg, Priority: STAT, Start date: 02/15/20 20:05:00 TICK ERADICATOR, Stop date: 02/15/20 20:05:00 TICK ERADICATOR Konstantin Gracia Acetaminoph en 325 MG / Hydrocodone Bitartrate 10 MG Oral Tablet [[place] 10/325] 2019-03 01:03: 00 No 1 tab, Route: PO, Drug Form: TAB, Dosing Weight 72.727, kg, ONCE, STAT, Start date: 02/15/20 19:03:00 TICK ERADICATOR, Stop date: 02/15/20 19:03:00 TICK ERADICATOR Konstantin Gracia Saline Flush 0.9% 2019-03 23:05: 00 No Notes: Same as: BD Posiflush Sterile Konstantin salinas Basil cefepime 2019-03 23:05: 00 No Notes: (Same [...] 2019-03 00:00: 00 11-05 00:00 :00 No [id number] 100mg Take 1 capsule by mouth daily. [facility] metoprolol tartrate 25 mg tablet 2019-03 00:00: 00 08-22 00:00 :00 No [id number] 25mg Take 1 tablet by mouth every 12 (twelve) hours. [facility] SYNTHROID 50 mcg tablet 10-11 00:00: 00 07-16 00:00 :00 No [id number] 50ug Take 1 tablet by mouth every morning. Brand name only [facility] tacrolimus (PROGRAF) 1 mg capsule 09-28 00:00: 00 09-26 00:00 :00 No 1mg Take 1 capsule by mouth every 12 (twelve) hours. Z94.0:gene reyna permitted Indication s: Z94.0 Generic Name Permitted [facility] furosemide (LASIX) 20 mg tablet 05-17 00:00: 00 07-16 00:00 :00 No [id number] 20mg Take 1 tablet by mouth daily. Or as needed for swelling. [facility] fluticasone 50 mcg/actuati on nasal spray 08-30 00:00: 00 08-11 00:00 :00 No [id number] 1{spray } Use 1 [place] in each nostril 2 (two) times daily. [facility] Magnesium Oxide-Mg AA Chelate (MG-PLUS-NM OTEIN) 133 mg Tab tablet 08-08 00:00: 00 06-24 00:00 :00 No [id number] 133mg Take 1 tablet by mouth daily. [facility] Blood-Gluco se Meter (ONE TOUCH BASIC SYSTEM) Kit 2011-03 00:00: 00 Yes Patient tests blood glucose one time day [facility] Blood-Gluco se Meter (ONE TOUCH BASIC SYSTEM) Kit 2011-03 00:00: 00 12-14 00:00 :00 No Patient tests blood glucose one time day [facility] blood sugar diagnostic (FREESTYLE LITE STRIPS) strip 2011-03 00:00: 00 Yes [id number] Patient test one time per day [facility] blood sugar diagnostic (FREESTYLE LITE STRIPS) strip 2011-03 00:00: 00 12-14 00:00 :00 No [id number] Patient test one time per day [facility] ASPIRIN 81 MG ORAL CHEW 12-06 00:00: 00 08-11 00:00 :00 No 1 Tab Oral DAILY [facility] Immunizations Ordered Immunization Name Filled Immunization Name Date Status Comments Source Flu Injectable MDCK Pres-Free (FLUCELVAX) 2023-12-15 00:00:00 Completed [facility] Flu Injectable MDCK Pres-Free (FLUCELVAX) 2023-12-15 00:00:00 Completed [facility] Influenza Virus Vaccine Quad IM, Preserv and ABX Free 6 MO-64 YRS 2022-02-03 00:00:00 Completed [facility] Influenza Virus Vaccine Quad IM, Preserv and ABX Free 6 MO-64 YRS 2022-02-03 00:00:00 Completed [facility] Influenza Virus Vaccine Quad IM, Preserv and ABX Free 6 MO-64 YRS 2022-02-03 00:00:00 Completed [facility] Influenza Virus Vaccine Quad IM, Preserv and ABX Free 6 MO-64 YRS 2022-02-03 00:00:00 Completed [facility] Influenza Virus Vaccine Quad IM, Preserv and ABX Free 6 MO-64 YRS 2022-02-03 00:00:00 Completed [facility] Influenza Virus Vaccine Quad IM, Preserv and ABX Free 6 MO-64 YRS 2022-02-03 00:00:00 Completed [facility] Influenza Virus Vaccine Quad IM, Preserv and ABX Free 6 MO-64 YRS 2022-02-03 00:00:00 Completed [facility] Influenza Virus Vaccine Quad IM, Preserv and ABX Free 6 MO-64 YRS 2022-02-03 00:00:00 Completed [facility] Influenza Virus Vaccine Quad IM, Preserv and ABX Free 6 MO-64 YRS 2022-02-03 00:00:00 Completed [facility] Influenza Virus Vaccine Quad IM, Preserv and ABX Free 6 MO-64 YRS 2022-02-03 00:00:00 Completed [facility] Influenza Virus Vaccine Quad IM, Preserv and ABX Free 6 MO-64 YRS 2022-02-03 00:00:00 Completed [facility] Influenza Virus Vaccine Quad IM, Preserv and ABX Free 6 MO-64 YRS 2022-02-03 00:00:00 Completed [facility] Influenza Virus Vaccine Quad IM, Preserv and ABX Free 6 MO-64 YRS 2022-02-03 00:00:00 Completed [facility] Influenza Virus Vaccine Quad IM, Preserv and ABX Free 6 MO-64 YRS 2022-02-03 00:00:00 Completed [facility] Influenza Virus Vaccine Quad IM, Preserv and ABX Free 6 MO-64 YRS 2022-02-03 00:00:00 Completed [facility] Influenza Virus Vaccine Quad IM, Preserv and ABX Free 6 MO-64 YRS 2022-02-03 00:00:00 Completed [facility] Influenza Virus Vaccine Quad IM, Preserv and ABX Free 6 MO-64 YRS 2022-02-03 00:00:00 Completed [facility] Influenza Virus Vaccine Quad IM, Preserv and ABX Free 6 MO-64 YRS 2022-02-03 00:00:00 Completed [facility] Influenza Virus Vaccine Quad IM, Preserv and ABX Free 6 MO-64 YRS 2022-02-03 00:00:00 Completed [facility] Influenza Virus Vaccine Quad IM, Preserv and ABX Free 6 MO-64 YRS 2022-02-03 00:00:00 Completed [facility] Influenza Virus Vaccine Quad IM, Preserv and ABX Free 6 MO-64 YRS 2022-02-03 00:00:00 Completed [facility] Influenza Virus Vaccine Quad IM, Preserv and ABX Free 6 MO-64 YRS 2022-02-03 00:00:00 Completed [facility] Influenza Virus Vaccine Quad IM, Preserv and ABX Free -64 2022-02-03 00:00:00 Completed [facility] Influenza Virus Vaccine Quad IM, Preserv and ABX Free 6 MO-64 YRS 2022-02-03 00:00:00 Completed [facility] Influenza Virus Vaccine Quad IM, Preserv and ABX Free 6 MO-64 YRS 2022-02-03 00:00:00 Completed [facility] Influenza Virus Vaccine Quad IM, Preserv and ABX Free 6 MO-64 YRS 2022-02-03 00:00:00 Completed [facility] Influenza Virus Vaccine Quad IM, Preserv and ABX Free MO-64 2022-02-03 00:00:00 Completed [facility] Influenza Virus Vaccine Quad IM, Preserv and ABX Free 6 MO-64 YRS 2022-02-03 00:00:00 Completed [facility] Influenza Virus Vaccine Quad IM, Preserv and ABX Free 6 MO-64 YRS 2022-02-03 00:00:00 Completed [facility] Influenza Virus Vaccine Quad IM, Preserv and ABX Free 6 MO-64 YRS 2022-02-03 00:00:00 Completed [facility] Influenza Virus Vaccine Quad IM, Preserv and ABX Free 6 MO-64 YRS 2022-02-03 00:00:00 Completed [facility] Influenza Virus Vaccine Quad IM, Preserv and ABX Free 6 MO-64 YRS 2022-02-03 00:00:00 Completed [facility] Influenza Virus Vaccine Quad IM, Preserv and ABX Free 6 MO-64 YRS 2022-02-03 00:00:00 Completed [facility] Influenza Virus Vaccine Quad IM, Preserv and ABX Free 6 MO-64 YRS 2022-02-03 00:00:00 Completed [facility] Influenza Virus Vaccine Quad IM, Preserv and ABX Free 6 MO-64 YRS 2022-02-03 00:00:00 Completed [facility] Influenza Virus Vaccine Quad IM, Preserv and ABX Free 6 MO-64 YRS 2022-02-03 00:00:00 Completed [facility] Influenza Virus Vaccine Quad IM, Preserv and ABX Free 6 MO-64 YRS 2022-02-03 00:00:00 Completed [facility] Influenza Virus Vaccine Quad IM, Preserv and ABX Free 6 MO-64 YRS 2022-02-03 00:00:00 Completed [facility] Influenza Virus Vaccine Quad IM, Preserv and ABX Free 6 MO-64 YRS 2022-02-03 00:00:00 Completed [facility] Influenza Virus Vaccine Quad IM, Preserv and ABX Free 6 MO-64 YRS 2022-02-03 00:00:00 Completed [facility] Influenza Virus Vaccine Quad IM, Preserv and ABX Free 6 MO-64 YRS 2022-02-03 00:00:00 Completed [facility] Influenza Virus Vaccine Quad IM, Preserv and ABX Free 6 MO-64 YRS 2022-02-03 00:00:00 Completed [facility] Influenza Virus Vaccine Quad IM, Preserv and ABX Free 6 MO-64 YRS 2022-02-03 00:00:00 Completed [facility] Influenza Virus Vaccine Quad IM, Preserv and ABX Free 6 MO-64 YRS 2022-02-03 00:00:00 Completed [facility] Influenza Virus Vaccine Quad IM, Preserv and ABX Free 6 MO-64 YRS 2022-02-03 00:00:00 Completed [facility] Influenza Virus Vaccine Quad IM, Preserv and ABX Free 6 MO-64 YRS 2022-02-03 00:00:00 Completed [facility] Influenza Virus Vaccine Quad IM, Preserv and ABX Free 6 MO-64 YRS 2022-02-03 00:00:00 Completed [facility] Influenza Virus Vaccine Quad IM, Preserv and ABX Free 6 MO-64 YRS 2022-02-03 00:00:00 Completed [facility] Influenza Virus Vaccine Quad IM, Preserv and ABX Free 6 MO-64 YRS 2022-02-03 00:00:00 Completed [facility] Influenza Virus Vaccine Quad IM, Preserv and ABX Free MO-64 YRS 2022-02-03 00:00:00 Completed [facility] Influenza Virus Vaccine Quad IM, Preserv and ABX Free 6 MO-64 YRS 2022-02-03 00:00:00 Completed [facility] Influenza Virus Vaccine Quad IM, Preserv and ABX Free MO-64 YRS 2022-02-03 00:00:00 Completed [facility] Influenza Virus Vaccine Quad IM, Preserv and ABX Free -64 YRS 2022-02-03 00:00:00 Completed [facility] Influenza Virus Vaccine Quad IM, Preserv and ABX Free 6 MO-64 YRS 2022-02-03 00:00:00 Completed [facility] Influenza Virus Vaccine Quad IM, Preserv and ABX Free 6 MO-64 YRS 2022-02-03 00:00:00 Completed [facility] Influenza Virus Vaccine Quad IM, Preserv and ABX Free 6 MO-64 YRS 2022-02-03 00:00:00 Completed [facility] Influenza Virus Vaccine Quad IM, Preserv and ABX Free 6 MO-64 YRS 2022-02-03 00:00:00 Completed [facility] Influenza Virus Vaccine Quad IM, Preserv and ABX Free 6 MO-64 2022-02-03 00:00:00 Completed [facility] Influenza Virus Vaccine Quad IM, Preserv and ABX Free 6 MO-64 YRS 2022-02-03 00:00:00 Completed [facility] Influenza Virus Vaccine Quad IM, Preserv and ABX Free 6 MO-64 YRS 2022-02-03 00:00:00 Completed [facility] Influenza Virus Vaccine Quad IM, Preserv and ABX Free 6 MO-64 YRS 2022-02-03 00:00:00 Completed [facility] Influenza Virus Vaccine Quad IM, Preserv and ABX Free 6 MO-64 YRS 2022-02-03 00:00:00 Completed [facility] Influenza Virus Vaccine Quad IM, Preserv and ABX Free 6 MO-64 YRS 2022-02-03 00:00:00 Completed [facility] Influenza Virus Vaccine Quad IM, Preserv and ABX Free 6 MO-64 YRS 2022-02-03 00:00:00 Completed [facility] Influenza Virus Vaccine Quad IM, Preserv and ABX Free 6 MO-64 YRS 2022-02-03 00:00:00 Completed [facility] Influenza Virus Vaccine Quad IM, Preserv and ABX Free 6 MO-64 YRS 2022-02-03 00:00:00 Completed [facility] Influenza Virus Vaccine Quad IM, Preserv and ABX Free 6 MO-64 YRS 2022-02-03 00:00:00 Completed [facility] Influenza Virus Vaccine Quad IM, Preserv and ABX Free 6 MO-64 YRS (FLUCELVAX) 2022-02-03 00:00:00 Completed [facility] Influenza Virus Vaccine Quad IM, Preserv and ABX Free 6 MO-64 YRS (FLUCELVAX) 2022-02-03 00:00:00 Completed [facility] SARS-COV-2 COVID-19 PFIZER VACCINE 2020-12-04 00:00:00 Completed [facility] SARS-COV-2 COVID-19 PFIZER VACCINE 2020-12-04 00:00:00 Completed [facility] SARS-COV-2 COVID-19 PFIZER VACCINE 2020-12-04 00:00:00 Completed [facility] SARS-COV-2 COVID-19 PFIZER VACCINE 2020-12-04 00:00:00 Completed [facility] SARS-COV-2 COVID-19 PFIZER VACCINE 2020-12-04 00:00:00 Completed [facility] SARS-COV-2 COVID-19 PFIZER VACCINE 2020-12-04 00:00:00 Completed [facility] SARS-COV-2 COVID-19 PFIZER VACCINE 2020-12-04 00:00:00 Completed [facility] SARS-COV-2 COVID-19 PFIZER VACCINE 2020-12-04 00:00:00 Completed [facility] SARS-COV-2 COVID-19 PFIZER VACCINE 2020-12-04 00:00:00 Completed [facility] SARS-COV-2 COVID-19 PFIZER VACCINE 2020-12-04 00:00:00 Completed [facility] SARS-COV-2 COVID-19 PFIZER VACCINE 2020-12-04 00:00:00 Completed [facility] SARS-COV-2 COVID-19 PFIZER VACCINE 2020-12-04 00:00:00 Completed [facility] SARS-COV-2 COVID-19 PFIZER VACCINE 2020-12-04 00:00:00 Completed [facility] SARS-COV-2 COVID-19 PFIZER VACCINE 2020-12-04 00:00:00 Completed [facility] SARS-COV-2 COVID-19 PFIZER VACCINE 2020-12-04 00:00:00 Completed [facility] SARS-COV-2 COVID-19 PFIZER VACCINE 2020-12-04 00:00:00 Completed [facility] SARS-COV-2 COVID-19 PFIZER VACCINE 2020-12-04 00:00:00 Completed [facility] SARS-COV-2 COVID-19 PFIZER VACCINE 2020-12-04 00:00:00 Completed [facility] SARS-COV-2 COVID-19 PFIZER VACCINE 2020-12-04 00:00:00 Completed [facility] SARS-COV-2 COVID-19 PFIZER VACCINE 2020-12-04 00:00:00 Completed [facility] SARS-COV-2 COVID-19 PFIZER VACCINE 2020-12-04 00:00:00 Completed [facility] SARS-COV-2 COVID-19 PFIZER VACCINE 2020-12-04 00:00:00 Completed [facility] SARS-COV-2 COVID-19 PFIZER VACCINE 2020-12-04 00:00:00 Completed [facility] SARS-COV-2 COVID-19 PFIZER VACCINE 2020-12-04 00:00:00 Completed [facility] SARS-COV-2 COVID-19 PFIZER VACCINE 2020-12-04 00:00:00 Completed [facility] SARS-COV-2 COVID-19 PFIZER VACCINE 2020-12-04 00:00:00 Completed [facility] SARS-COV-2 COVID-19 PFIZER VACCINE 2020-12-04 00:00:00 Completed [facility] SARS-COV-2 COVID-19 PFIZER VACCINE 2020-12-04 00:00:00 Completed [facility] SARS-COV-2 COVID-19 PFIZER VACCINE 2020-12-04 00:00:00 Completed [facility] SARS-COV-2 COVID-19 PFIZER VACCINE 2020-12-04 00:00:00 Completed [facility] SARS-COV-2 COVID-19 PFIZER VACCINE 2020-12-04 00:00:00 Completed [facility] SARS-COV-2 COVID-19 PFIZER VACCINE 2020-12-04 00:00:00 Completed [facility] SARS-COV-2 COVID-19 PFIZER VACCINE 2020-12-04 00:00:00 Completed [facility] SARS-COV-2 COVID-19 PFIZER VACCINE 2020-12-04 00:00:00 Completed [facility] SARS-COV-2 COVID-19 PFIZER VACCINE 2020-12-04 00:00:00 Completed [facility] SARS-COV-2 COVID-19 PFIZER VACCINE 2020-12-04 00:00:00 Completed [facility] SARS-COV-2 COVID-19 PFIZER VACCINE 2020-12-04 00:00:00 Completed [facility] SARS-COV-2 COVID-19 PFIZER VACCINE 2020-12-04 00:00:00 Completed [facility] SARS-COV-2 COVID-19 PFIZER VACCINE 2020-12-04 00:00:00 Completed [facility] SARS-COV-2 COVID-19 PFIZER VACCINE 2020-12-04 00:00:00 Completed [facility] SARS-COV-2 COVID-19 PFIZER VACCINE 2020-12-04 00:00:00 Completed [facility] SARS-COV-2 COVID-19 PFIZER VACCINE 2020-12-04 00:00:00 Completed [facility] SARS-COV-2 COVID-19 PFIZER VACCINE 2020-12-04 00:00:00 Completed [facility] SARS-COV-2 COVID-19 PFIZER VACCINE 2020-12-04 00:00:00 Completed [facility] SARS-COV-2 COVID-19 PFIZER VACCINE 2020-12-04 00:00:00 Completed [facility] SARS-COV-2 COVID-19 PFIZER VACCINE 2020-12-04 00:00:00 Completed [facility] SARS-COV-2 COVID-19 PFIZER VACCINE 2020-12-04 00:00:00 Completed [facility] SARS-COV-2 COVID-19 PFIZER VACCINE 2020-12-04 00:00:00 Completed [facility] SARS-COV-2 COVID-19 PFIZER VACCINE 2020-12-04 00:00:00 Completed [facility] SARS-COV-2 COVID-19 PFIZER VACCINE 2020-12-04 00:00:00 Completed [facility] SARS-COV-2 COVID-19 PFIZER VACCINE 2020-12-04 00:00:00 Completed [facility] SARS-COV-2 COVID-19 PFIZER VACCINE 2020-12-04 00:00:00 Completed [facility] SARS-COV-2 COVID-19 PFIZER VACCINE 2020-12-04 00:00:00 Completed [facility] SARS-COV-2 COVID-19 PFIZER VACCINE 2020-12-04 00:00:00 Completed [facility] SARS-COV-2 COVID-19 PFIZER VACCINE 2020-12-04 00:00:00 Completed [facility] SARS-COV-2 COVID-19 PFIZER VACCINE 2020-12-04 00:00:00 Completed [facility] SARS-COV-2 COVID-19 PFIZER VACCINE 2020-12-04 00:00:00 Completed [facility] SARS-COV-2 COVID-19 PFIZER VACCINE 2020-12-04 00:00:00 Completed [facility] SARS-COV-2 COVID-19 PFIZER VACCINE 2020-12-04 00:00:00 Completed [facility] SARS-COV-2 COVID-19 PFIZER VACCINE 2020-12-04 00:00:00 Completed [facility] SARS-COV-2 COVID-19 PFIZER VACCINE 2020-12-04 00:00:00 Completed [facility] SARS-COV-2 COVID-19 PFIZER VACCINE 2020-12-04 00:00:00 Completed [facility] SARS-COV-2 COVID-19 PFIZER VACCINE 2020-12-04 00:00:00 Completed [facility] SARS-COV-2 COVID-19 PFIZER VACCINE 2020-12-04 00:00:00 Completed [facility] SARS-COV-2 COVID-19 PFIZER VACCINE 2020-12-04 00:00:00 Completed [facility] SARS-COV-2 COVID-19 PFIZER VACCINE 2020-12-04 00:00:00 Completed [facility] SARS-COV-2 COVID-19 PFIZER VACCINE 2020-12-04 00:00:00 Completed [facility] SARS-COV-2 COVID-19 PFIZER VACCINE 2020-12-04 00:00:00 Completed [facility] SARS-COV-2 COVID-19 PFIZER VACCINE 2020-12-04 00:00:00 Completed [facility] SARS-COV-2 COVID-19 PFIZER VACCINE 2020-12-04 00:00:00 Completed [facility] SARS-COV-2 COVID-19 PFIZER VACCINE 2020-12-04 00:00:00 Completed [facility] SARS-COV-2 COVID-19 PFIZER VACCINE 2020-12-04 00:00:00 Completed [facility] SARS-COV-2 COVID-19 PFIZER VACCINE 2020-12-04 00:00:00 Completed [facility] SARS-COV-2 COVID-19 PFIZER VACCINE 2020-12-04 00:00:00 Completed [facility] SARS-COV-2 COVID-19 PFIZER VACCINE 2020-12-04 00:00:00 Completed [facility] SARS-COV-2 COVID-19 PFIZER VACCINE 2020-12-04 00:00:00 Completed [facility] SARS-COV-2 COVID-19 PFIZER VACCINE 2020-12-04 00:00:00 Completed [facility] SARS-COV-2 COVID-19 PFIZER VACCINE 2020-12-04 00:00:00 Completed [facility] SARS-COV-2 COVID-19 PFIZER VACCINE 2020-12-04 00:00:00 Completed [facility] SARS-COV-2 COVID-19 PFIZER VACCINE 2020-12-04 00:00:00 Completed [facility] SARS-COV-2 COVID-19 PFIZER VACCINE 2020-12-04 00:00:00 Completed [facility] SARS-COV-2 COVID-19 PFIZER VACCINE 2020-06-16 00:00:00 Completed [facility] SARS-COV-2 COVID-19 PFIZER VACCINE 2020-06-16 00:00:00 Completed [facility] SARS-COV-2 COVID-19 PFIZER VACCINE 2020-06-16 00:00:00 Completed [facility] SARS-COV-2 COVID-19 PFIZER VACCINE 2020-06-16 00:00:00 Completed [facility] SARS-COV-2 COVID-19 PFIZER VACCINE 2020-06-16 00:00:00 Completed [facility] SARS-COV-2 COVID-19 PFIZER VACCINE 2020-06-16 00:00:00 Completed [facility] SARS-COV-2 COVID-19 PFIZER VACCINE 2020-06-16 00:00:00 Completed [facility] SARS-COV-2 COVID-19 PFIZER VACCINE 2020-06-16 00:00:00 Completed [facility] SARS-COV-2 COVID-19 PFIZER VACCINE 2020-06-16 00:00:00 Completed [facility] SARS-COV-2 COVID-19 PFIZER VACCINE 2020-06-16 00:00:00 Completed [facility] SARS-COV-2 COVID-19 PFIZER VACCINE 2020-06-16 00:00:00 Completed [facility] SARS-COV-2 COVID-19 PFIZER VACCINE 2020-06-16 00:00:00 Completed [facility] SARS-COV-2 COVID-19 PFIZER VACCINE 2020-06-16 00:00:00 Completed [facility] SARS-COV-2 COVID-19 PFIZER VACCINE 2020-06-16 00:00:00 Completed [facility] SARS-COV-2 COVID-19 PFIZER VACCINE 2020-06-16 00:00:00 Completed [facility] SARS-COV-2 COVID-19 PFIZER VACCINE 2020-06-16 00:00:00 Completed [facility] SARS-COV-2 COVID-19 PFIZER VACCINE 2020-06-16 00:00:00 Completed [facility] SARS-COV-2 COVID-19 PFIZER VACCINE 2020-06-16 00:00:00 Completed [facility] SARS-COV-2 COVID-19 PFIZER VACCINE 2020-06-16 00:00:00 Completed [facility] SARS-COV-2 COVID-19 PFIZER VACCINE 2020-06-16 00:00:00 Completed [facility] SARS-COV-2 COVID-19 PFIZER VACCINE 2020-06-16 00:00:00 Completed [facility] SARS-COV-2 COVID-19 PFIZER VACCINE 2020-06-16 00:00:00 Completed [facility] SARS-COV-2 COVID-19 PFIZER VACCINE 2020-06-16 00:00:00 Completed [facility] SARS-COV-2 COVID-19 PFIZER VACCINE 2020-06-16 00:00:00 Completed [facility] SARS-COV-2 COVID-19 PFIZER VACCINE 2020-06-16 00:00:00 Completed [facility] SARS-COV-2 COVID-19 PFIZER VACCINE 2020-06-16 00:00:00 Completed [facility] SARS-COV-2 COVID-19 PFIZER VACCINE 2020-06-16 00:00:00 Completed [facility] SARS-COV-2 COVID-19 PFIZER VACCINE 2020-06-16 00:00:00 Completed [facility] SARS-COV-2 COVID-19 PFIZER VACCINE 2020-06-16 00:00:00 Completed [facility] SARS-COV-2 COVID-19 PFIZER VACCINE 2020-06-16 00:00:00 Completed [facility] SARS-COV-2 COVID-19 PFIZER VACCINE 2020-06-16 00:00:00 Completed [facility] SARS-COV-2 COVID-19 PFIZER VACCINE 2020-06-16 00:00:00 Completed [facility] SARS-COV-2 COVID-19 PFIZER VACCINE 2020-06-16 00:00:00 Completed [facility] SARS-COV-2 COVID-19 PFIZER VACCINE 2020-06-16 00:00:00 Completed [facility] SARS-COV-2 COVID-19 PFIZER VACCINE 2020-06-16 00:00:00 Completed [facility] SARS-COV-2 COVID-19 PFIZER VACCINE 2020-06-16 00:00:00 Completed [facility] SARS-COV-2 COVID-19 PFIZER VACCINE 2020-06-16 00:00:00 Completed [facility] SARS-COV-2 COVID-19 PFIZER VACCINE 2020-06-16 00:00:00 Completed [facility] SARS-COV-2 COVID-19 PFIZER VACCINE 2020-06-16 00:00:00 Completed [facility] SARS-COV-2 COVID-19 PFIZER VACCINE 2020-06-16 00:00:00 Completed [facility] SARS-COV-2 COVID-19 PFIZER VACCINE 2020-06-16 00:00:00 Completed [facility] SARS-COV-2 COVID-19 PFIZER VACCINE 2020-06-16 00:00:00 Completed [facility] SARS-COV-2 COVID-19 PFIZER VACCINE 2020-06-16 00:00:00 Completed [facility] SARS-COV-2 COVID-19 PFIZER VACCINE 2020-06-16 00:00:00 Completed [facility] SARS-COV-2 COVID-19 PFIZER VACCINE 2020-06-16 00:00:00 Completed [facility] SARS-COV-2 COVID-19 PFIZER VACCINE 2020-06-16 00:00:00 Completed [facility] SARS-COV-2 COVID-19 PFIZER VACCINE 2020-06-16 00:00:00 Completed [facility] SARS-COV-2 COVID-19 PFIZER VACCINE 2020-06-16 00:00:00 Completed [facility] SARS-COV-2 COVID-19 PFIZER VACCINE 2020-06-16 00:00:00 Completed [facility] SARS-COV-2 COVID-19 PFIZER VACCINE 2020-06-16 00:00:00 Completed [facility] SARS-COV-2 COVID-19 PFIZER VACCINE 2020-06-16 00:00:00 Completed [facility] SARS-COV-2 COVID-19 PFIZER VACCINE 2020-06-16 00:00:00 Completed [facility] SARS-COV-2 COVID-19 PFIZER VACCINE 2020-06-16 00:00:00 Completed [facility] SARS-COV-2 COVID-19 PFIZER VACCINE 2020-06-16 00:00:00 Completed [facility] SARS-COV-2 COVID-19 PFIZER VACCINE 2020-06-16 00:00:00 Completed [facility] SARS-COV-2 COVID-19 PFIZER VACCINE 2020-06-16 00:00:00 Completed [facility] SARS-COV-2 COVID-19 PFIZER VACCINE 2020-06-16 00:00:00 Completed [facility] SARS-COV-2 COVID-19 PFIZER VACCINE 2020-06-16 00:00:00 Completed [facility] SARS-COV-2 COVID-19 PFIZER VACCINE 2020-06-16 00:00:00 Completed [facility] SARS-COV-2 COVID-19 PFIZER VACCINE 2020-06-16 00:00:00 Completed [facility] SARS-COV-2 COVID-19 PFIZER VACCINE 2020-06-16 00:00:00 Completed [facility] SARS-COV-2 COVID-19 PFIZER VACCINE 2020-06-16 00:00:00 Completed [facility] SARS-COV-2 COVID-19 PFIZER VACCINE 2020-06-16 00:00:00 Completed [facility] SARS-COV-2 COVID-19 PFIZER VACCINE 2020-06-16 00:00:00 Completed [facility] SARS-COV-2 COVID-19 PFIZER VACCINE 2020-06-16 00:00:00 Completed [facility] SARS-COV-2 COVID-19 PFIZER VACCINE 2020-06-16 00:00:00 Completed [facility] SARS-COV-2 COVID-19 PFIZER VACCINE 2020-06-16 00:00:00 Completed [facility] SARS-COV-2 COVID-19 PFIZER VACCINE 2020-06-16 00:00:00 Completed [facility] SARS-COV-2 COVID-19 PFIZER VACCINE 2020-06-16 00:00:00 Completed [facility] SARS-COV-2 COVID-19 PFIZER VACCINE 2020-06-16 00:00:00 Completed [facility] SARS-COV-2 COVID-19 PFIZER VACCINE 2020-06-16 00:00:00 Completed [facility] SARS-COV-2 COVID-19 PFIZER VACCINE 2020-06-16 00:00:00 Completed [facility] SARS-COV-2 COVID-19 PFIZER VACCINE 2020-06-16 00:00:00 Completed [facility] SARS-COV-2 COVID-19 PFIZER VACCINE 2020-06-16 00:00:00 Completed [facility] SARS-COV-2 COVID-19 PFIZER VACCINE 2020-06-16 00:00:00 Completed [facility] SARS-COV-2 COVID-19 PFIZER VACCINE 2020-06-16 00:00:00 Completed [facility] SARS-COV-2 COVID-19 PFIZER VACCINE 2020-06-16 00:00:00 Completed [facility] SARS-COV-2 COVID-19 PFIZER VACCINE 2020-06-16 00:00:00 Completed [facility] SARS-COV-2 COVID-19 PFIZER VACCINE 2020-06-16 00:00:00 Completed [facility] SARS-COV-2 COVID-19 PFIZER VACCINE 2020-06-16 00:00:00 Completed [facility] SARS-COV-2 COVID-19 PFIZER VACCINE 2020-06-16 00:00:00 Completed [facility] SARS-COV-2 COVID-19 PFIZER VACCINE 2020-05-26 00:00:00 Completed [facility] SARS-COV-2 COVID-19 PFIZER VACCINE 2020-05-26 00:00:00 Completed [facility] SARS-COV-2 COVID-19 PFIZER VACCINE 2020-05-26 00:00:00 Completed [facility] SARS-COV-2 COVID-19 PFIZER VACCINE 2020-05-26 00:00:00 Completed [facility] SARS-COV-2 COVID-19 PFIZER VACCINE 2020-05-26 00:00:00 Completed [facility] SARS-COV-2 COVID-19 PFIZER VACCINE 2020-05-26 00:00:00 Completed [facility] SARS-COV-2 COVID-19 PFIZER VACCINE 2020-05-26 00:00:00 Completed [facility] SARS-COV-2 COVID-19 PFIZER VACCINE 2020-05-26 00:00:00 Completed [facility] SARS-COV-2 COVID-19 PFIZER VACCINE 2020-05-26 00:00:00 Completed [facility] SARS-COV-2 COVID-19 PFIZER VACCINE 2020-05-26 00:00:00 Completed [facility] SARS-COV-2 COVID-19 PFIZER VACCINE 2020-05-26 00:00:00 Completed [facility] SARS-COV-2 COVID-19 PFIZER VACCINE 2020-05-26 00:00:00 Completed [facility] SARS-COV-2 COVID-19 PFIZER VACCINE 2020-05-26 00:00:00 Completed [facility] SARS-COV-2 COVID-19 PFIZER VACCINE 2020-05-26 00:00:00 Completed [facility] SARS-COV-2 COVID-19 PFIZER VACCINE 2020-05-26 00:00:00 Completed [facility] SARS-COV-2 COVID-19 PFIZER VACCINE 2020-05-26 00:00:00 Completed [facility] SARS-COV-2 COVID-19 PFIZER VACCINE 2020-05-26 00:00:00 Completed [facility] SARS-COV-2 COVID-19 PFIZER VACCINE 2020-05-26 00:00:00 Completed [facility] SARS-COV-2 COVID-19 PFIZER VACCINE 2020-05-26 00:00:00 Completed [facility] SARS-COV-2 COVID-19 PFIZER VACCINE 2020-05-26 00:00:00 Completed [facility] SARS-COV-2 COVID-19 PFIZER VACCINE 2020-05-26 00:00:00 Completed [facility] SARS-COV-2 COVID-19 PFIZER VACCINE 2020-05-26 00:00:00 Completed [facility] SARS-COV-2 COVID-19 PFIZER VACCINE 2020-05-26 00:00:00 Completed [facility] SARS-COV-2 COVID-19 PFIZER VACCINE 2020-05-26 00:00:00 Completed [facility] SARS-COV-2 COVID-19 PFIZER VACCINE 2020-05-26 00:00:00 Completed [facility] SARS-COV-2 COVID-19 PFIZER VACCINE 2020-05-26 00:00:00 Completed [facility] SARS-COV-2 COVID-19 PFIZER VACCINE 2020-05-26 00:00:00 Completed [facility] SARS-COV-2 COVID-19 PFIZER VACCINE 2020-05-26 00:00:00 Completed [facility] SARS-COV-2 COVID-19 PFIZER VACCINE 2020-05-26 00:00:00 Completed [facility] SARS-COV-2 COVID-19 PFIZER VACCINE 2020-05-26 00:00:00 Completed [facility] SARS-COV-2 COVID-19 PFIZER VACCINE 2020-05-26 00:00:00 Completed [facility] SARS-COV-2 COVID-19 PFIZER VACCINE 2020-05-26 00:00:00 Completed [facility] SARS-COV-2 COVID-19 PFIZER VACCINE 2020-05-26 00:00:00 Completed [facility] SARS-COV-2 COVID-19 PFIZER VACCINE 2020-05-26 00:00:00 Completed [facility] SARS-COV-2 COVID-19 PFIZER VACCINE 2020-05-26 00:00:00 Completed [facility] SARS-COV-2 COVID-19 PFIZER VACCINE 2020-05-26 00:00:00 Completed [facility] SARS-COV-2 COVID-19 PFIZER VACCINE 2020-05-26 00:00:00 Completed [facility] SARS-COV-2 COVID-19 PFIZER VACCINE 2020-05-26 00:00:00 Completed [facility] SARS-COV-2 COVID-19 PFIZER VACCINE 2020-05-26 00:00:00 Completed [facility] SARS-COV-2 COVID-19 PFIZER VACCINE 2020-05-26 00:00:00 Completed [facility] SARS-COV-2 COVID-19 PFIZER VACCINE 2020-05-26 00:00:00 Completed [facility] SARS-COV-2 COVID-19 PFIZER VACCINE 2020-05-26 00:00:00 Completed [facility] SARS-COV-2 COVID-19 PFIZER VACCINE 2020-05-26 00:00:00 Completed [facility] SARS-COV-2 COVID-19 PFIZER VACCINE 2020-05-26 00:00:00 Completed [facility] SARS-COV-2 COVID-19 PFIZER VACCINE 2020-05-26 00:00:00 Completed [facility] SARS-COV-2 COVID-19 PFIZER VACCINE 2020-05-26 00:00:00 Completed [facility] SARS-COV-2 COVID-19 PFIZER VACCINE 2020-05-26 00:00:00 Completed [facility] SARS-COV-2 COVID-19 PFIZER VACCINE 2020-05-26 00:00:00 Completed [facility] SARS-COV-2 COVID-19 PFIZER VACCINE 2020-05-26 00:00:00 Completed [facility] SARS-COV-2 COVID-19 PFIZER VACCINE 2020-05-26 00:00:00 Completed [facility] SARS-COV-2 COVID-19 PFIZER VACCINE 2020-05-26 00:00:00 Completed [facility] SARS-COV-2 COVID-19 PFIZER VACCINE 2020-05-26 00:00:00 Completed [facility] SARS-COV-2 COVID-19 PFIZER VACCINE 2020-05-26 00:00:00 Completed [facility] SARS-COV-2 COVID-19 PFIZER VACCINE 2020-05-26 00:00:00 Completed [facility] SARS-COV-2 COVID-19 PFIZER VACCINE 2020-05-26 00:00:00 Completed [facility] SARS-COV-2 COVID-19 PFIZER VACCINE 2020-05-26 00:00:00 Completed [facility] SARS-COV-2 COVID-19 PFIZER VACCINE 2020-05-26 00:00:00 Completed [facility] SARS-COV-2 COVID-19 PFIZER VACCINE 2020-05-26 00:00:00 Completed [facility] SARS-COV-2 COVID-19 PFIZER VACCINE 2020-05-26 00:00:00 Completed [facility] SARS-COV-2 COVID-19 PFIZER VACCINE 2020-05-26 00:00:00 Completed [facility] SARS-COV-2 COVID-19 PFIZER VACCINE 2020-05-26 00:00:00 Completed [facility] SARS-COV-2 COVID-19 PFIZER VACCINE 2020-05-26 00:00:00 Completed [facility] SARS-COV-2 COVID-19 PFIZER VACCINE 2020-05-26 00:00:00 Completed [facility] SARS-COV-2 COVID-19 PFIZER VACCINE 2020-05-26 00:00:00 Completed [facility] SARS-COV-2 COVID-19 PFIZER VACCINE 2020-05-26 00:00:00 Completed [facility] SARS-COV-2 COVID-19 PFIZER VACCINE 2020-05-26 00:00:00 Completed [facility] SARS-COV-2 COVID-19 PFIZER VACCINE 2020-05-26 00:00:00 Completed [facility] SARS-COV-2 COVID-19 PFIZER VACCINE 2020-05-26 00:00:00 Completed [facility] SARS-COV-2 COVID-19 PFIZER VACCINE 2020-05-26 00:00:00 Completed [facility] SARS-COV-2 COVID-19 PFIZER VACCINE 2020-05-26 00:00:00 Completed [facility] SARS-COV-2 COVID-19 PFIZER VACCINE 2020-05-26 00:00:00 Completed [facility] SARS-COV-2 COVID-19 PFIZER VACCINE 2020-05-26 00:00:00 Completed [facility] SARS-COV-2 COVID-19 PFIZER VACCINE 2020-05-26 00:00:00 Completed [facility] SARS-COV-2 COVID-19 PFIZER VACCINE 2020-05-26 00:00:00 Completed [facility] SARS-COV-2 COVID-19 PFIZER VACCINE 2020-05-26 00:00:00 Completed [facility] SARS-COV-2 COVID-19 PFIZER VACCINE 2020-05-26 00:00:00 Completed [facility] SARS-COV-2 COVID-19 PFIZER VACCINE 2020-05-26 00:00:00 Completed [facility] SARS-COV-2 COVID-19 PFIZER VACCINE 2020-05-26 00:00:00 Completed [facility] SARS-COV-2 COVID-19 PFIZER VACCINE 2020-05-26 00:00:00 Completed [facility] SARS-COV-2 COVID-19 PFIZER VACCINE 2020-05-26 00:00:00 Completed [facility] SARS-COV-2 COVID-19 PFIZER VACCINE 2020-05-26 00:00:00 Completed [facility] Influenza Virus Vaccine 2020-01-12 00:00:00 Completed [facility] Influenza Virus Vaccine 2020-01-12 00:00:00 Completed [facility] Influenza Virus Vaccine 2020-01-12 00:00:00 Completed [facility] Influenza Virus Vaccine 2020-01-12 00:00:00 Completed [facility] Influenza Virus Vaccine 2020-01-12 00:00:00 Completed [facility] Influenza Virus Vaccine 2020-01-12 00:00:00 Completed [facility] Influenza Virus Vaccine 2020-01-12 00:00:00 Completed [facility] Influenza Virus Vaccine 2020-01-12 00:00:00 Completed [facility] Influenza Virus Vaccine 2020-01-12 00:00:00 Completed [facility] Influenza Virus Vaccine 2020-01-12 00:00:00 Completed [facility] Influenza Virus Vaccine 2020-01-12 00:00:00 Completed [facility] Influenza Virus Vaccine 2020-01-12 00:00:00 Completed [facility] Influenza Virus Vaccine 2020-01-12 00:00:00 Completed [facility] Influenza Virus Vaccine 2020-01-12 00:00:00 Completed [facility] Influenza Virus Vaccine 2020-01-12 00:00:00 Completed [facility] Influenza Virus Vaccine 2020-01-12 00:00:00 Completed [facility] Influenza Virus Vaccine 2020-01-12 00:00:00 Completed [facility] Influenza Virus Vaccine 2020-01-12 00:00:00 Completed [facility] Influenza Virus Vaccine 2020-01-12 00:00:00 Completed [facility] Influenza Virus Vaccine 2020-01-12 00:00:00 Completed [facility] Influenza Virus Vaccine 2020-01-12 00:00:00 Completed [facility] Influenza Virus Vaccine 2020-01-12 00:00:00 Completed [facility] Influenza Virus Vaccine 2020-01-12 00:00:00 Completed [facility] Influenza Virus Vaccine 2020-01-12 00:00:00 Completed [facility] [place] [facility] Virus Vaccine 2020-01-12 00:00:00 Completed [facility] Influenza Virus Vaccine 2020-01-12 00:00:00 Completed [facility] Influenza Virus Vaccine 2020-01-12 00:00:00 Completed [facility] Influenza Virus Vaccine 2020-01-12 00:00:00 Completed [facility] Influenza Virus Vaccine 2020-01-12 00:00:00 Completed [facility] Influenza Virus Vaccine 2020-01-12 00:00:00 Completed [facility] Influenza Virus Vaccine 2020-01-12 00:00:00 Completed [facility] Influenza Virus Vaccine 2020-01-12 00:00:00 Completed [facility] Influenza Virus Vaccine 2020-01-12 00:00:00 Completed [facility] Influenza Virus Vaccine 2020-01-12 00:00:00 Completed [facility] Influenza Virus Vaccine 2020-01-12 00:00:00 Completed [facility] Influenza Virus Vaccine 2020-01-12 00:00:00 Completed [facility] Influenza Virus Vaccine 2020-01-12 00:00:00 Completed [facility] Influenza Virus Vaccine 2020-01-12 00:00:00 Completed [facility] Influenza Virus Vaccine 2020-01-12 00:00:00 Completed [facility] Influenza Virus Vaccine 2020-01-12 00:00:00 Completed [facility] Influenza Virus Vaccine 2020-01-12 00:00:00 Completed [facility] Influenza Virus Vaccine 2020-01-12 00:00:00 Completed [facility] Influenza Virus Vaccine 2020-01-12 00:00:00 Completed [facility] Influenza Virus Vaccine 2020-01-12 00:00:00 Completed [facility] Influenza Virus Vaccine 2020-01-12 00:00:00 Completed [facility] Influenza Virus Vaccine 2020-01-12 00:00:00 Completed [facility] Influenza Virus Vaccine 2020-01-12 00:00:00 Completed [facility] Influenza Virus Vaccine 2020-01-12 00:00:00 Completed [facility] Influenza Virus Vaccine 2020-01-12 00:00:00 Completed [facility] Influenza Virus Vaccine 2020-01-12 00:00:00 Completed [facility] Influenza Virus Vaccine 2020-01-12 00:00:00 Completed [facility] Influenza Virus Vaccine 2020-01-12 00:00:00 Completed [facility] Influenza Virus Vaccine 2020-01-12 00:00:00 Completed [facility] Influenza Virus Vaccine 2020-01-12 00:00:00 Completed [facility] Influenza Virus Vaccine 2020-01-12 00:00:00 Completed [facility] Influenza Virus Vaccine 2020-01-12 00:00:00 Completed [facility] Influenza Virus Vaccine 2020-01-12 00:00:00 Completed [facility] Influenza Virus Vaccine 2020-01-12 00:00:00 Completed [facility] Influenza Virus Vaccine 2020-01-12 00:00:00 Completed [facility] Influenza Virus Vaccine 2020-01-12 00:00:00 Completed [facility] Influenza Virus Vaccine 2020-01-12 00:00:00 Completed [facility] Influenza Virus Vaccine 2020-01-12 00:00:00 Completed [facility] Influenza Virus Vaccine 2020-01-12 00:00:00 Completed [facility] Influenza Virus Vaccine 2020-01-12 00:00:00 Completed [facility] Influenza Virus Vaccine 2020-01-12 00:00:00 Completed [facility] Influenza Virus Vaccine 2020-01-12 00:00:00 Completed [facility] Influenza Virus Vaccine 2020-01-12 00:00:00 Completed [facility] Influenza Virus Vaccine 2020-01-12 00:00:00 Completed [facility] Influenza Virus Vaccine 2020-01-12 00:00:00 Completed [facility] Influenza Virus Vaccine 2020-01-12 00:00:00 Completed [facility] Influenza Virus Vaccine 2020-01-12 00:00:00 Completed [facility] Influenza Virus Vaccine 2020-01-12 00:00:00 Completed [facility] Influenza Virus Vaccine 2020-01-12 00:00:00 Completed [facility] Influenza Virus Vaccine 2020-01-12 00:00:00 Completed [facility] Influenza Virus Vaccine 2020-01-12 00:00:00 Completed [facility] Influenza Virus Vaccine 2020-01-12 00:00:00 Completed [facility] Influenza Virus Vaccine 2020-01-12 00:00:00 Completed [facility] Influenza Virus Vaccine 2020-01-12 00:00:00 Completed [facility] Influenza Virus Vaccine 2020-01-12 00:00:00 Completed [facility] Influenza Virus Vaccine 2020-01-12 00:00:00 Completed [facility] Influenza Virus Vaccine 2020-01-12 00:00:00 Completed [facility] Influenza Virus Vaccine 2018-01-16 00:00:00 Completed [facility] Influenza Virus Vaccine 2018-01-16 00:00:00 Completed [facility] Influenza Virus Vaccine 2018-01-16 00:00:00 Completed [facility] Influenza Virus Vaccine 2018-01-16 00:00:00 Completed [facility] Influenza Virus Vaccine 2018-01-16 00:00:00 Completed [facility] Influenza Virus Vaccine 2018-01-16 00:00:00 Completed [facility] Influenza Virus Vaccine 2018-01-16 00:00:00 Completed [facility] Influenza Virus Vaccine 2018-01-16 00:00:00 Completed [facility] Influenza Virus Vaccine 2018-01-16 00:00:00 Completed [facility] Influenza Virus Vaccine 2018-01-16 00:00:00 Completed [facility] Influenza Virus Vaccine 2018-01-16 00:00:00 Completed [facility] Influenza Virus Vaccine 2018-01-16 00:00:00 Completed [facility] Influenza Virus Vaccine 2018-01-16 00:00:00 Completed [facility] Influenza Virus Vaccine 2018-01-16 00:00:00 Completed [facility] Influenza Virus Vaccine 2018-01-16 00:00:00 Completed [facility] Influenza Virus Vaccine 2018-01-16 00:00:00 Completed [facility] Influenza Virus Vaccine 2018-01-16 00:00:00 Completed [facility] Influenza Virus Vaccine 2018-01-16 00:00:00 Completed [facility] Influenza Virus Vaccine 2018-01-16 00:00:00 Completed [facility] Influenza Virus Vaccine 2018-01-16 00:00:00 Completed [facility] Influenza Virus Vaccine 2018-01-16 00:00:00 Completed [facility] Influenza Virus Vaccine 2018-01-16 00:00:00 Completed [facility] Influenza Virus Vaccine 2018-01-16 00:00:00 Completed [facility] Influenza Virus Vaccine 2018-01-16 00:00:00 Completed [facility] Influenza Virus Vaccine 2018-01-16 00:00:00 Completed [facility] Influenza Virus Vaccine 2018-01-16 00:00:00 Completed [facility] Influenza Virus Vaccine 2018-01-16 00:00:00 Completed [facility] Influenza Virus Vaccine 2018-01-16 00:00:00 Completed [facility] Influenza Virus Vaccine 2018-01-16 00:00:00 Completed [facility] Influenza Virus Vaccine 2018-01-16 00:00:00 Completed [facility] Influenza Virus Vaccine 2018-01-16 00:00:00 Completed [facility] Influenza Virus Vaccine 2018-01-16 00:00:00 Completed [facility] Influenza Virus Vaccine 2018-01-16 00:00:00 Completed [facility] Influenza Virus Vaccine 2018-01-16 00:00:00 Completed [facility] Influenza Virus Vaccine 2018-01-16 00:00:00 Completed [facility] Influenza Virus Vaccine 2018-01-16 00:00:00 Completed [facility] Influenza Virus Vaccine 2018-01-16 00:00:00 Completed [facility] Influenza Virus Vaccine 2018-01-16 00:00:00 Completed [facility] Influenza Virus Vaccine 2018-01-16 00:00:00 Completed [facility] Influenza Virus Vaccine 2018-01-16 00:00:00 Completed [facility] Influenza Virus Vaccine 2018-01-16 00:00:00 Completed [facility] Influenza Virus Vaccine 2018-01-16 00:00:00 Completed [facility] Influenza Virus Vaccine 2018-01-16 00:00:00 Completed [facility] Influenza Virus Vaccine 2018-01-16 00:00:00 Completed [facility] Influenza Virus Vaccine 2018-01-16 00:00:00 Completed [facility] Influenza Virus Vaccine 2018-01-16 00:00:00 Completed [facility] Influenza Virus Vaccine 2018-01-16 00:00:00 Completed [facility] Influenza Virus Vaccine 2018-01-16 00:00:00 Completed [facility] Influenza Virus Vaccine 2018-01-16 00:00:00 Completed [facility] Influenza Virus Vaccine 2018-01-16 00:00:00 Completed [facility] Influenza Virus Vaccine 2018-01-16 00:00:00 Completed [facility] Influenza Virus Vaccine 2018-01-16 00:00:00 Completed [facility] Influenza Virus Vaccine 2018-01-16 00:00:00 Completed [facility] Influenza Virus Vaccine 2018-01-16 00:00:00 Completed [facility] Influenza Virus Vaccine 2018-01-16 00:00:00 Completed [facility] Influenza Virus Vaccine 2018-01-16 00:00:00 Completed [facility] Influenza Virus Vaccine 2018-01-16 00:00:00 Completed [facility] Influenza Virus Vaccine 2018-01-16 00:00:00 Completed [facility] Influenza Virus Vaccine 2018-01-16 00:00:00 Completed [facility] Influenza Virus Vaccine 2018-01-16 00:00:00 Completed [facility] Influenza Virus Vaccine 2018-01-16 00:00:00 Completed [facility] Influenza Virus Vaccine 2018-01-16 00:00:00 Completed [facility] Influenza Virus Vaccine 2018-01-16 00:00:00 Completed [facility] Influenza Virus Vaccine 2018-01-16 00:00:00 Completed [facility] Influenza Virus Vaccine 2018-01-16 00:00:00 Completed [facility] Influenza Virus Vaccine 2018-01-16 00:00:00 Completed [facility] Influenza Virus Vaccine 2018-01-16 00:00:00 Completed [facility] Influenza Virus Vaccine 2018-01-16 00:00:00 Completed [facility] Influenza Virus Vaccine 2018-01-16 00:00:00 Completed [facility] Influenza Virus Vaccine 2018-01-16 00:00:00 Completed [facility] Influenza Virus Vaccine 2018-01-16 00:00:00 Completed [facility] Influenza Virus Vaccine 2018-01-16 00:00:00 Completed [facility] Influenza Virus Vaccine 2018-01-16 00:00:00 Completed [facility] Influenza Virus Vaccine 2018-01-16 00:00:00 Completed [facility] Influenza Virus Vaccine 2018-01-16 00:00:00 Completed [facility] Influenza Virus Vaccine 2018-01-16 00:00:00 Completed [facility] Influenza Virus Vaccine 2018-01-16 00:00:00 Completed [facility] Influenza Virus Vaccine 2018-01-16 00:00:00 Completed [facility] Influenza Virus Vaccine 2018-01-16 00:00:00 Completed [facility] Influenza Virus Vaccine 2018-01-16 00:00:00 Completed [facility] Influenza Virus Vaccine 2018-01-16 00:00:00 Completed [facility] Influenza Virus Vaccine Quad IM 3+ YRS 2016-03-13 00:00:00 Completed [facility] Influenza Virus Vaccine Quad IM 3+ YRS 2016-03-13 00:00:00 Completed [facility] Influenza Virus Vaccine Quad IM 3+ YRS 2016-03-13 00:00:00 Completed [facility] Influenza Virus Vaccine Quad IM 3+ YRS 2016-03-13 00:00:00 Completed [facility] Influenza Virus Vaccine Quad IM 3+ YRS 2016-03-13 00:00:00 Completed [facility] Influenza Virus Vaccine Quad IM 3+ YRS 2016-03-13 00:00:00 Completed [facility] Influenza Virus Vaccine Quad IM 3+ YRS 2016-03-13 00:00:00 Completed [facility] Influenza Virus Vaccine Quad IM 3+ YRS 2016-03-13 00:00:00 Completed [facility] Influenza Virus Vaccine Quad IM 3+ YRS 2016-03-13 00:00:00 Completed [facility] Influenza Virus Vaccine Quad IM 3+ YRS 2016-03-13 00:00:00 Completed [facility] Influenza Virus Vaccine Quad IM 3+ YRS 2016-03-13 00:00:00 Completed [facility] Influenza Virus Vaccine Quad IM 3+ YRS 2016-03-13 00:00:00 Completed [facility] Influenza Virus Vaccine Quad IM 3+ YRS 2016-03-13 00:00:00 Completed [facility] Influenza Virus Vaccine Quad IM 3+ YRS 2016-03-13 00:00:00 Completed [facility] Influenza Virus Vaccine Quad IM 3+ YRS 2016-03-13 00:00:00 Completed [facility] Influenza Virus Vaccine Quad IM 3+ YRS 2016-03-13 00:00:00 Completed [facility] Influenza Virus Vaccine Quad IM 3+ YRS 2016-03-13 00:00:00 Completed [facility] Influenza Virus Vaccine Quad IM 3+ YRS 2016-03-13 00:00:00 Completed [facility] Influenza Virus Vaccine Quad IM 3+ YRS 2016-03-13 00:00:00 Completed [facility] Influenza Virus Vaccine Quad IM 3+ YRS 2016-03-13 00:00:00 Completed [facility] Influenza Virus Vaccine Quad IM 3+ YRS 2016-03-13 00:00:00 Completed [facility] Influenza Virus Vaccine Quad IM 3+ YRS 2016-03-13 00:00:00 Completed [facility] Influenza Virus Vaccine Quad IM 3+ YRS 2016-03-13 00:00:00 Completed [facility] Influenza Virus Vaccine Quad IM 3+ YRS 2016-03-13 00:00:00 Completed [facility] Influenza Virus Vaccine Quad IM 3+ YRS 2016-03-13 00:00:00 Completed [facility] Influenza Virus Vaccine Quad IM 3+ YRS 2016-03-13 00:00:00 Completed [facility] Influenza Virus Vaccine Quad IM 3+ YRS 2016-03-13 00:00:00 Completed [facility] Influenza Virus Vaccine Quad IM 3+ YRS 2016-03-13 00:00:00 Completed [facility] Influenza Virus Vaccine Quad IM 3+ YRS 2016-03-13 00:00:00 Completed [facility] Influenza Virus Vaccine Quad IM 3+ YRS 2016-03-13 00:00:00 Completed [facility] Influenza Virus Vaccine Quad IM 3+ YRS 2016-03-13 00:00:00 Completed [facility] Influenza Virus Vaccine Quad IM 3+ YRS 2016-03-13 00:00:00 Completed [facility] Influenza Virus Vaccine Quad IM 3+ YRS 2016-03-13 00:00:00 Completed [facility] Influenza Virus Vaccine Quad IM 3+ YRS 2016-03-13 00:00:00 Completed [facility] Influenza Virus Vaccine Quad IM 3+ YRS 2016-03-13 00:00:00 Completed [facility] Influenza Virus Vaccine Quad IM 3+ YRS 2016-03-13 00:00:00 Completed [facility] Influenza Virus Vaccine Quad IM 3+ YRS 2016-03-13 00:00:00 Completed [facility] Influenza Virus Vaccine Quad IM 3+ YRS 2016-03-13 00:00:00 Completed [facility] Influenza Virus Vaccine Quad IM 3+ YRS 2016-03-13 00:00:00 Completed [facility] Influenza Virus Vaccine Quad IM 3+ YRS 2016-03-13 00:00:00 Completed [facility] Influenza Virus Vaccine Quad IM 3+ YRS 2016-03-13 00:00:00 Completed [facility] Influenza Virus Vaccine Quad IM 3+ YRS 2016-03-13 00:00:00 Completed [facility] Influenza Virus Vaccine Quad IM 3+ YRS 2016-03-13 00:00:00 Completed [facility] Influenza Virus Vaccine Quad IM 3+ YRS 2016-03-13 00:00:00 Completed [facility] Influenza Virus Vaccine Quad IM 3+ YRS 2016-03-13 00:00:00 Completed [facility] Influenza Virus Vaccine Quad IM 3+ YRS 2016-03-13 00:00:00 Completed [facility] Influenza Virus Vaccine Quad IM 3+ YRS 2016-03-13 00:00:00 Completed [facility] Influenza Virus Vaccine Quad IM 3+ YRS 2016-03-13 00:00:00 Completed [facility] Influenza Virus Vaccine Quad IM 3+ YRS 2016-03-13 00:00:00 Completed [facility] Influenza Virus Vaccine Quad IM 3+ YRS 2016-03-13 00:00:00 Completed [facility] Influenza Virus Vaccine Quad IM 3+ YRS 2016-03-13 00:00:00 Completed [facility] Influenza Virus Vaccine Quad IM 3+ YRS 2016-03-13 00:00:00 Completed [facility] Influenza Virus Vaccine Quad IM 3+ YRS 2016-03-13 00:00:00 Completed [facility] Influenza Virus Vaccine Quad IM 3+ YRS 2016-03-13 00:00:00 Completed [facility] Influenza Virus Vaccine Quad IM 3+ YRS 2016-03-13 00:00:00 Completed [facility] Influenza Virus Vaccine Quad IM 3+ YRS 2016-03-13 00:00:00 Completed [facility] Influenza Virus Vaccine Quad IM 3+ YRS 2016-03-13 00:00:00 Completed [facility] Influenza Virus Vaccine Quad IM 3+ YRS 2016-03-13 00:00:00 Completed [facility] Influenza Virus Vaccine Quad IM 3+ YRS 2016-03-13 00:00:00 Completed [facility] Influenza Virus Vaccine Quad IM 3+ YRS 2016-03-13 00:00:00 Completed [facility] Influenza Virus Vaccine Quad IM 3+ YRS 2016-03-13 00:00:00 Completed [facility] Influenza Virus Vaccine Quad IM 3+ YRS 2016-03-13 00:00:00 Completed [facility] Influenza Virus Vaccine Quad IM 3+ YRS 2016-03-13 00:00:00 Completed [facility] Influenza Virus Vaccine Quad IM 3+ YRS 2016-03-13 00:00:00 Completed [facility] Influenza Virus Vaccine Quad IM 3+ YRS 2016-03-13 00:00:00 Completed [facility] Influenza Virus Vaccine Quad IM 3+ YRS 2016-03-13 00:00:00 Completed [facility] Influenza Virus Vaccine Quad IM 3+ YRS 2016-03-13 00:00:00 Completed [facility] Influenza Virus Vaccine Quad IM 3+ YRS 2016-03-13 00:00:00 Completed [facility] Influenza Virus Vaccine Quad IM 3+ YRS 2016-03-13 00:00:00 Completed [facility] Influenza Virus Vaccine Quad IM 3+ YRS 2016-03-13 00:00:00 Completed [facility] Influenza Virus Vaccine Quad IM 3+ YRS 2016-03-13 00:00:00 Completed [facility] Influenza Virus Vaccine Quad IM 3+ YRS 2016-03-13 00:00:00 Completed [facility] Influenza Virus Vaccine Quad IM 3+ YRS 2016-03-13 00:00:00 Completed [facility] Influenza Virus Vaccine Quad IM 3+ YRS 2016-03-13 00:00:00 Completed [facility] Influenza Virus Vaccine Quad IM 3+ YRS 2016-03-13 00:00:00 Completed [facility] Influenza Virus Vaccine Quad IM 3+ YRS 2016-03-13 00:00:00 Completed [facility] Influenza Virus Vaccine Quad IM 3+ YRS 2016-03-13 00:00:00 Completed [facility] Influenza Virus Vaccine Quad IM 3+ YRS 2016-03-13 00:00:00 Completed [facility] Influenza Virus Vaccine Quad IM 3+ YRS 2016-03-13 00:00:00 Completed [facility] Influenza Virus Vaccine Quad IM 3+ YRS 2016-03-13 00:00:00 Completed Influenza Virus Vaccine Quad IM 3+ YRS 2016-03-13 00:00:00 Completed Influenza Virus Vaccine 2011-12-22 00:00:00 Completed [facility] Influenza Virus Vaccine 2011-12-22 00:00:00 Completed [facility] Influenza Virus Vaccine 2011-12-22 00:00:00 Completed [facility] Influenza Virus Vaccine 2011-12-22 00:00:00 Completed [facility] Influenza Virus Vaccine 2011-12-22 00:00:00 Completed [facility] Influenza Virus Vaccine 2011-12-22 00:00:00 Completed [facility] Influenza Virus Vaccine 2011-12-22 00:00:00 Completed [facility] Influenza Virus Vaccine 2011-12-22 00:00:00 Completed [facility] Influenza Virus Vaccine 2011-12-22 00:00:00 Completed [facility] Influenza Virus Vaccine 2011-12-22 00:00:00 Completed [facility] Influenza Virus Vaccine 2011-12-22 00:00:00 Completed [facility] Influenza Virus Vaccine 2011-12-22 00:00:00 Completed [facility] Influenza Virus Vaccine 2011-12-22 00:00:00 Completed [facility] Influenza Virus Vaccine 2011-12-22 00:00:00 Completed [facility] Influenza Virus Vaccine 2011-12-22 00:00:00 Completed [facility] Influenza Virus Vaccine 2011-12-22 00:00:00 Completed [facility] Influenza Virus Vaccine 2011-12-22 00:00:00 Completed [facility] Influenza Virus Vaccine 2011-12-22 00:00:00 Completed [facility] Influenza Virus Vaccine 2011-12-22 00:00:00 Completed [facility] Influenza Virus Vaccine 2011-12-22 00:00:00 Completed [facility] Influenza Virus Vaccine 2011-12-22 00:00:00 Completed [facility] Influenza Virus Vaccine 2011-12-22 00:00:00 Completed [facility] Influenza Virus Vaccine 2011-12-22 00:00:00 Completed [facility] Influenza Virus Vaccine 2011-12-22 00:00:00 Completed [facility] Influenza Virus Vaccine 2011-12-22 00:00:00 Completed [facility] Influenza Virus Vaccine 2011-12-22 00:00:00 Completed [facility] Influenza Virus Vaccine 2011-12-22 00:00:00 Completed [facility] Influenza Virus Vaccine 2011-12-22 00:00:00 Completed [facility] Influenza Virus Vaccine 2011-12-22 00:00:00 Completed [facility] Influenza Virus Vaccine 2011-12-22 00:00:00 Completed [facility] Influenza Virus Vaccine 2011-12-22 00:00:00 Completed [facility] Influenza Virus Vaccine 2011-12-22 00:00:00 Completed [facility] Influenza Virus Vaccine 2011-12-22 00:00:00 Completed [facility] Influenza Virus Vaccine 2011-12-22 00:00:00 Completed [facility] Influenza Virus Vaccine 2011-12-22 00:00:00 Completed [facility] Influenza Virus Vaccine 2011-12-22 00:00:00 Completed [facility] Influenza Virus Vaccine 2011-12-22 00:00:00 Completed [facility] Influenza Virus Vaccine 2011-12-22 00:00:00 Completed [facility] Influenza Virus Vaccine 2011-12-22 00:00:00 Completed [facility] Influenza Virus Vaccine 2011-12-22 00:00:00 Completed [facility] Influenza Virus Vaccine 2011-12-22 00:00:00 Completed [facility] Influenza Virus Vaccine 2011-12-22 00:00:00 Completed [facility] Influenza Virus Vaccine 2011-12-22 00:00:00 Completed [facility] Influenza Virus Vaccine 2011-12-22 00:00:00 Completed [facility] Influenza Virus Vaccine 2011-12-22 00:00:00 Completed [facility] Influenza Virus Vaccine 2011-12-22 00:00:00 Completed [facility] Influenza Virus Vaccine 2011-12-22 00:00:00 Completed [facility] Influenza Virus Vaccine 2011-12-22 00:00:00 Completed [facility] Influenza Virus Vaccine 2011-12-22 00:00:00 Completed [facility] Influenza Virus Vaccine 2011-12-22 00:00:00 Completed [facility] Influenza Virus Vaccine 2011-12-22 00:00:00 Completed [facility] Influenza Virus Vaccine 2011-12-22 00:00:00 Completed [facility] Influenza Virus Vaccine 2011-12-22 00:00:00 Completed [facility] Influenza Virus Vaccine 2011-12-22 00:00:00 Completed [facility] Influenza Virus Vaccine 2011-12-22 00:00:00 Completed [facility] Influenza Virus Vaccine 2011-12-22 00:00:00 Completed [facility] Influenza Virus Vaccine 2011-12-22 00:00:00 Completed [facility] Influenza Virus Vaccine 2011-12-22 00:00:00 Completed [facility] Influenza Virus Vaccine 2011-12-22 00:00:00 Completed [facility] Influenza Virus Vaccine 2011-12-22 00:00:00 Completed [facility] Influenza Virus Vaccine 2011-12-22 00:00:00 Completed [facility] Influenza Virus Vaccine 2011-12-22 00:00:00 Completed [facility] Influenza Virus Vaccine 2011-12-22 00:00:00 Completed [facility] Influenza Virus Vaccine 2011-12-22 00:00:00 Completed [facility] Influenza Virus Vaccine 2011-12-22 00:00:00 Completed [facility] Influenza Virus Vaccine 2011-12-22 00:00:00 Completed [facility] Influenza Virus Vaccine 2011-12-22 00:00:00 Completed [facility] Influenza Virus Vaccine 2011-12-22 00:00:00 Completed [facility] Influenza Virus Vaccine 2011-12-22 00:00:00 Completed [facility] Influenza Virus Vaccine 2011-12-22 00:00:00 Completed [facility] Influenza Virus Vaccine 2011-12-22 00:00:00 Completed [facility] Influenza Virus Vaccine 2011-12-22 00:00:00 Completed [facility] Influenza Virus Vaccine 2011-12-22 00:00:00 Completed [facility] Influenza Virus Vaccine 2011-12-22 00:00:00 Completed [facility] Influenza Virus Vaccine 2011-12-22 00:00:00 Completed [facility] Influenza Virus Vaccine 2011-12-22 00:00:00 Completed [facility] Influenza Virus Vaccine 2011-12-22 00:00:00 Completed [facility] Influenza Virus Vaccine 2011-12-22 00:00:00 Completed [facility] Influenza Virus Vaccine 2011-12-22 00:00:00 Completed [facility] Influenza Virus Vaccine 2011-12-22 00:00:00 Completed [facility] Influenza Virus Vaccine 2011-12-22 00:00:00 Completed [facility] Influenza Virus Vaccine 2010-01-31 00:00:00 Completed [facility] Influenza Virus Vaccine 2010-01-31 00:00:00 Completed [facility] Influenza Virus Vaccine 2010-01-31 00:00:00 Completed [facility] Influenza Virus Vaccine 2010-01-31 00:00:00 Completed [facility] Influenza Virus Vaccine 2010-01-31 00:00:00 Completed [facility] Influenza Virus Vaccine 2010-01-31 00:00:00 Completed [facility] Influenza Virus Vaccine 2010-01-31 00:00:00 Completed [facility] Influenza Virus Vaccine 2010-01-31 00:00:00 Completed [facility] Influenza Virus Vaccine 2010-01-31 00:00:00 Completed [facility] Influenza Virus Vaccine 2010-01-31 00:00:00 Completed [facility] Influenza Virus Vaccine 2010-01-31 00:00:00 Completed [facility] Influenza Virus Vaccine 2010-01-31 00:00:00 Completed [facility] Influenza Virus Vaccine 2010-01-31 00:00:00 Completed [facility] Influenza Virus Vaccine 2010-01-31 00:00:00 Completed [facility] Influenza Virus Vaccine 2010-01-31 00:00:00 Completed [facility] Influenza Virus Vaccine 2010-01-31 00:00:00 Completed [facility] Influenza Virus Vaccine 2010-01-31 00:00:00 Completed [facility] Influenza Virus Vaccine 2010-01-31 00:00:00 Completed [facility] Influenza Virus Vaccine 2010-01-31 00:00:00 Completed [facility] Influenza Virus Vaccine 2010-01-31 00:00:00 Completed [facility] Influenza Virus Vaccine 2010-01-31 00:00:00 Completed [facility] Influenza Virus Vaccine 2010-01-31 00:00:00 Completed [facility] Influenza Virus Vaccine 2010-01-31 00:00:00 Completed [facility] Influenza Virus Vaccine 2010-01-31 00:00:00 Completed [facility] Influenza Virus Vaccine 2010-01-31 00:00:00 Completed [facility] Influenza Virus Vaccine 2010-01-31 00:00:00 Completed [facility] Influenza Virus Vaccine 2010-01-31 00:00:00 Completed [facility] Influenza Virus Vaccine 2010-01-31 00:00:00 Completed [facility] Influenza Virus Vaccine 2010-01-31 00:00:00 Completed [facility] Influenza Virus Vaccine 2010-01-31 00:00:00 Completed [facility] Influenza Virus Vaccine 2010-01-31 00:00:00 Completed [facility] Influenza Virus Vaccine 2010-01-31 00:00:00 Completed [facility] Influenza Virus Vaccine 2010-01-31 00:00:00 Completed [facility] Influenza Virus Vaccine 2010-01-31 00:00:00 Completed [facility] Influenza Virus Vaccine 2010-01-31 00:00:00 Completed [facility] Influenza Virus Vaccine 2010-01-31 00:00:00 Completed [facility] Influenza Virus Vaccine 2010-01-31 00:00:00 Completed [facility] Influenza Virus Vaccine 2010-01-31 00:00:00 Completed [facility] Influenza Virus Vaccine 2010-01-31 00:00:00 Completed [facility] Influenza Virus Vaccine 2010-01-31 00:00:00 Completed [facility] Influenza Virus Vaccine 2010-01-31 00:00:00 Completed [facility] Influenza Virus Vaccine 2010-01-31 00:00:00 Completed [facility] Influenza Virus Vaccine 2010-01-31 00:00:00 Completed [facility] Influenza Virus Vaccine 2010-01-31 00:00:00 Completed [facility] Influenza Virus Vaccine 2010-01-31 00:00:00 Completed [facility] Influenza Virus Vaccine 2010-01-31 00:00:00 Completed [facility] Influenza Virus Vaccine 2010-01-31 00:00:00 Completed [facility] Influenza Virus Vaccine 2010-01-31 00:00:00 Completed [facility] Influenza Virus Vaccine 2010-01-31 00:00:00 Completed [facility] Influenza Virus Vaccine 2010-01-31 00:00:00 Completed [facility] Influenza Virus Vaccine 2010-01-31 00:00:00 Completed [facility] Influenza Virus Vaccine 2010-01-31 00:00:00 Completed [facility] Influenza Virus Vaccine 2010-01-31 00:00:00 Completed [facility] Influenza Virus Vaccine 2010-01-31 00:00:00 Completed [facility] Influenza Virus Vaccine 2010-01-31 00:00:00 Completed [facility] Influenza Virus Vaccine 2010-01-31 00:00:00 Completed [facility] Influenza Virus Vaccine 2010-01-31 00:00:00 Completed [facility] Influenza Virus Vaccine 2010-01-31 00:00:00 Completed [facility] Influenza Virus Vaccine 2010-01-31 00:00:00 Completed [facility] Influenza Virus Vaccine 2010-01-31 00:00:00 Completed [facility] Influenza Virus Vaccine 2010-01-31 00:00:00 Completed [facility] Influenza Virus Vaccine 2010-01-31 00:00:00 Completed [facility] Influenza Virus Vaccine 2010-01-31 00:00:00 Completed [facility] Influenza Virus Vaccine 2010-01-31 00:00:00 Completed [facility] Influenza Virus Vaccine 2010-01-31 00:00:00 Completed [facility] Influenza Virus Vaccine 2010-01-31 00:00:00 Completed [facility] Influenza Virus Vaccine 2010-01-31 00:00:00 Completed [facility] Influenza Virus Vaccine 2010-01-31 00:00:00 Completed [facility] Influenza Virus Vaccine 2010-01-31 00:00:00 Completed [facility] Influenza Virus Vaccine 2010-01-31 00:00:00 Completed [facility] Influenza Virus Vaccine 2010-01-31 00:00:00 Completed [facility] Influenza Virus Vaccine 2010-01-31 00:00:00 Completed [facility] Influenza Virus Vaccine 2010-01-31 00:00:00 Completed [facility] Influenza Virus Vaccine 2010-01-31 00:00:00 Completed [facility] Influenza Virus Vaccine 2010-01-31 00:00:00 Completed [facility] Influenza Virus Vaccine 2010-01-31 00:00:00 Completed [facility] Influenza Virus Vaccine 2010-01-31 00:00:00 Completed [facility] Influenza Virus Vaccine 2010-01-31 00:00:00 Completed [facility] Influenza Virus Vaccine 2010-01-31 00:00:00 Completed [facility] Influenza Virus Vaccine 2010-01-31 00:00:00 Completed [facility] Influenza Virus Vaccine 2010-01-31 00:00:00 Completed [facility] H1n1 Vaccine 2009-03-01 00:00:00 Completed [facility] H1n1 Vaccine 2009-03-01 00:00:00 Completed [facility] H1n1 Vaccine 2009-03-01 00:00:00 Completed [facility] H1n1 Vaccine 2009-03-01 00:00:00 Completed [facility] H1n1 Vaccine 2009-03-01 00:00:00 Completed [facility] H1n1 Vaccine 2009-03-01 00:00:00 Completed [facility] H1n1 Vaccine 2009-03-01 00:00:00 Completed [facility] H1n1 Vaccine 2009-03-01 00:00:00 Completed [facility] H1n1 Vaccine 2009-03-01 00:00:00 Completed [facility] H1n1 Vaccine 2009-03-01 00:00:00 Completed [facility] H1n1 Vaccine 2009-03-01 00:00:00 Completed [facility] H1n1 Vaccine 2009-03-01 00:00:00 Completed [facility] H1n1 Vaccine 2009-03-01 00:00:00 Completed [facility] H1n1 Vaccine 2009-03-01 00:00:00 Completed [facility] H1n1 Vaccine 2009-03-01 00:00:00 Completed [facility] H1n1 Vaccine 2009-03-01 00:00:00 Completed [facility] H1n1 Vaccine 2009-03-01 00:00:00 Completed [facility] H1n1 Vaccine 2009-03-01 00:00:00 Completed [facility] H1n1 Vaccine 2009-03-01 00:00:00 Completed [facility] H1n1 Vaccine 2009-03-01 00:00:00 Completed [facility] H1n1 Vaccine 2009-03-01 00:00:00 Completed [facility] H1n1 Vaccine 2009-03-01 00:00:00 Completed [facility] H1n1 Vaccine 2009-03-01 00:00:00 Completed [facility] H1n1 Vaccine 2009-03-01 00:00:00 Completed [facility] H1n1 Vaccine 2009-03-01 00:00:00 Completed [facility] H1n1 Vaccine 2009-03-01 00:00:00 Completed [facility] H1n1 Vaccine 2009-03-01 00:00:00 Completed [facility] H1n1 Vaccine 2009-03-01 00:00:00 Completed [facility] H1n1 Vaccine 2009-03-01 00:00:00 Completed [facility] H1n1 Vaccine 2009-03-01 00:00:00 Completed [facility] H1n1 Vaccine 2009-03-01 00:00:00 Completed [facility] H1n1 Vaccine 2009-03-01 00:00:00 Completed [facility] H1n1 Vaccine 2009-03-01 00:00:00 Completed [facility] H1n1 Vaccine 2009-03-01 00:00:00 Completed [facility] H1n1 Vaccine 2009-03-01 00:00:00 Completed [facility] H1n1 Vaccine 2009-03-01 00:00:00 Completed [facility] H1n1 Vaccine 2009-03-01 00:00:00 Completed [facility] H1n1 Vaccine 2009-03-01 00:00:00 Completed [facility] H1n1 Vaccine 2009-03-01 00:00:00 Completed [facility] H1n1 Vaccine 2009-03-01 00:00:00 Completed [facility] H1n1 Vaccine 2009-03-01 00:00:00 Completed [facility] H1n1 Vaccine 2009-03-01 00:00:00 Completed [facility] H1n1 Vaccine 2009-03-01 00:00:00 Completed [facility] H1n1 Vaccine 2009-03-01 00:00:00 Completed [facility] H1n1 Vaccine 2009-03-01 00:00:00 Completed [facility] H1n1 Vaccine 2009-03-01 00:00:00 Completed [facility] H1n1 Vaccine 2009-03-01 00:00:00 Completed [facility] H1n1 Vaccine 2009-03-01 00:00:00 Completed [facility] H1n1 Vaccine 2009-03-01 00:00:00 Completed [facility] H1n1 Vaccine 2009-03-01 00:00:00 Completed [facility] H1n1 Vaccine 2009-03-01 00:00:00 Completed [facility] H1n1 Vaccine 2009-03-01 00:00:00 Completed [facility] H1n1 Vaccine 2009-03-01 00:00:00 Completed [facility] H1n1 Vaccine 2009-03-01 00:00:00 Completed [facility] H1n1 Vaccine 2009-03-01 00:00:00 Completed [facility] H1n1 Vaccine 2009-03-01 00:00:00 Completed [facility] H1n1 Vaccine 2009-03-01 00:00:00 Completed [facility] H1n1 Vaccine 2009-03-01 00:00:00 Completed [facility] H1n1 Vaccine 2009-03-01 00:00:00 Completed [facility] H1n1 Vaccine 2009-03-01 00:00:00 Completed [facility] H1n1 Vaccine 2009-03-01 00:00:00 Completed [facility] H1n1 Vaccine 2009-03-01 00:00:00 Completed [facility] H1n1 Vaccine 2009-03-01 00:00:00 Completed [facility] H1n1 Vaccine 2009-03-01 00:00:00 Completed [facility] H1n1 Vaccine 2009-03-01 00:00:00 Completed [facility] H1n1 Vaccine 2009-03-01 00:00:00 Completed [facility] H1n1 Vaccine 2009-03-01 00:00:00 Completed [facility] H1n1 Vaccine 2009-03-01 00:00:00 Completed [facility] H1n1 Vaccine 2009-03-01 00:00:00 Completed [facility] H1n1 Vaccine 2009-03-01 00:00:00 Completed [facility] H1n1 Vaccine 2009-03-01 00:00:00 Completed [facility] H1n1 Vaccine 2009-03-01 00:00:00 Completed [facility] H1n1 Vaccine 2009-03-01 00:00:00 Completed [facility] H1n1 Vaccine 2009-03-01 00:00:00 Completed [facility] H1n1 Vaccine 2009-03-01 00:00:00 Completed [facility] H1n1 Vaccine 2009-03-01 00:00:00 Completed [facility] H1n1 Vaccine 2009-03-01 00:00:00 Completed [facility] H1n1 Vaccine 2009-03-01 00:00:00 Completed [facility] H1n1 Vaccine 2009-03-01 00:00:00 Completed [facility] H1n1 Vaccine 2009-03-01 00:00:00 Completed [facility] H1n1 Vaccine 2009-03-01 00:00:00 Completed [facility] H1n1 Vaccine Unknown Completed [facility] Influenza Virus Vaccine Quad IM 3+ YRS Unknown Completed [facility] Influenza Virus Vaccine Unknown Completed [facility] SARS-COV-2 COVID-19 PFIZER VACCINE Unknown Completed [facility] Influenza Virus Vaccine Quad IM, Preserv and ABX Free 6 MO-64 YRS (FLUCELVAX) Unknown Completed [facility] Influenza Virus Vaccine Unknown Completed [facility] SARS-COV-2 COVID-19 PFIZER VACCINE Unknown Completed [facility] Influenza Virus Vaccine Quad IM, Preserv and ABX Free 6 MO-64 YRS (FLUCELVAX) Unknown Completed [facility] H1n1 Vaccine Unknown Completed [facility] Influenza Virus Vaccine Quad IM 3+ YRS Unknown Completed [facility] H1n1 Vaccine Unknown Completed [facility] Influenza Virus Vaccine Quad IM 3+ YRS Unknown Completed [facility] Influenza Virus Vaccine Unknown Completed [facility] SARS-COV-2 COVID-19 PFIZER VACCINE Unknown Completed [facility] Influenza Virus Vaccine Quad IM, Preserv and ABX Free 6 MO-64 YRS (FLUCELVAX) Unknown Completed [facility] H1n1 Vaccine Unknown Completed [facility] Influenza Virus Vaccine Quad IM 3+ YRS Unknown Completed [facility] Influenza Virus Vaccine Unknown Completed [facility] SARS-COV-2 COVID-19 PFIZER VACCINE Unknown Completed [facility] Influenza Virus Vaccine Quad IM, Preserv and ABX Free 6 MO-64 YRS (FLUCELVAX) Unknown Completed [facility] H1n1 Vaccine Unknown Completed [facility] Influenza Virus Vaccine Quad IM 3+ YRS Unknown Completed [facility] Influenza Virus Vaccine Unknown Completed [facility] SARS-COV-2 COVID-19 PFIZER VACCINE Unknown Completed [facility] Influenza Virus Vaccine Quad IM, Preserv and ABX Free 6 MO-64 YRS (FLUCELVAX) Unknown Completed [facility] H1n1 Vaccine Unknown Completed [facility] Influenza Virus Vaccine Quad IM 3+ YRS Unknown Completed [facility] Influenza Virus Vaccine Unknown Completed [facility] SARS-COV-2 COVID-19 PFIZER VACCINE Unknown Completed [facility] Influenza Virus Vaccine Quad IM, Preserv and ABX Free 6 MO-64 YRS (FLUCELVAX) Unknown Completed [facility] H1n1 Vaccine [facility]ine Quad IM 3+ YRS Unknown Completed [facility] Influenza Virus Vaccine Unknown Completed [facility] SARS-COV-2 COVID-19 PFIZER VACCINE Unknown Completed [facility] Influenza Virus Vaccine Quad IM, Preserv and ABX Free 6 MO-64 YRS (FLUCELVAX) Unknown Completed [facility] H1n1 Vaccine Unknown [facility]ine Quad IM 3+ YRS Unknown Completed [facility] Influenza Virus Vaccine Unknown Completed [facility] SARS-COV-2 COVID-19 PFIZER VACCINE Unknown Completed [facility] Influenza Virus Vaccine Quad IM, Preserv and ABX Free 6 MO-64 YRS (FLUCELVAX) Unknown Completed [facility] H1n1 Vaccine Unknown Completed [facility] Influenza Virus Vaccine Quad IM 3+ YRS Unknown Completed [facility] Influenza Virus Vaccine Unknown Completed [facility] SARS-COV-2 COVID-19 PFIZER VACCINE Unknown Completed [facility] Influenza Virus Vaccine Quad IM, Preserv and ABX Free 6 MO-64 YRS (FLUCELVAX) Unknown Completed [facility] H1n1 Vaccine Unknown Completed [facility] Influenza Virus Vaccine Quad IM 3+ YRS Unknown Completed [facility] Influenza Virus Vaccine Unknown Completed [facility] SARS-COV-2 COVID-19 PFIZER VACCINE Unknown Completed [facility] Influenza Virus Vaccine Quad IM, Preserv and ABX Free 6 MO-64 YRS (FLUCELVAX) Unknown Completed [facility] H1n1 Vaccine Unknown Completed [facility] Influenza Virus Vaccine Quad IM 3+ YRS Unknown Completed [facility] Influenza Virus Vaccine Unknown Completed [facility] SARS-COV-2 COVID-19 PFIZER VACCINE Unknown Completed [facility] H1n1 Vaccine Unknown Completed [facility] Influenza Virus Vaccine Quad IM 3+ YRS Unknown Completed [facility] Influenza Virus Vaccine Unknown Completed [facility] SARS-COV-2 COVID-19 PFIZER VACCINE Unknown Completed [facility] H1n1 Vaccine Unknown Completed [facility] Influenza Virus Vaccine Quad IM 3+ YRS Unknown Completed [facility] Influenza Virus Vaccine Unknown Completed [facility] SARS-COV-2 COVID-19 PFIZER VACCINE Unknown Completed [facility] H1n1 Vaccine Unknown Completed [facility] Influenza Virus Vaccine Quad IM 3+ YRS Unknown Completed [facility] Influenza Virus Vaccine Unknown Completed [facility] SARS-COV-2 COVID-19 PFIZER VACCINE Unknown Completed [facility] H1n1 Vaccine Unknown Completed [facility] Influenza Virus Vaccine Quad IM 3+ YRS Unknown Completed [facility] Influenza Virus Vaccine Unknown Completed [facility] Influenza Virus Vaccine Unknown Completed [facility] SARS-COV-2 COVID-19 PFIZER VACCINE Unknown Completed [facility] Influenza Virus Vaccine Quad IM, Preserv and ABX Free 6 MO-64 YRS (FLUCELVAX) Unknown Completed [facility] H1n1 Vaccine Unknown Completed [facility] Influenza Virus Vaccine Quad IM 3+ YRS Unknown Completed [facility] H1n1 Vaccine Unknown Completed [facility] Influenza Virus Vaccine Quad IM 3+ YRS Unknown Completed [facility] Influenza Virus Vaccine Unknown Completed [facility] SARS-COV-2 COVID-19 PFIZER VACCINE Unknown Completed [facility] Influenza Virus Vaccine Quad IM, Preserv and ABX Free 6 MO-64 YRS (FLUCELVAX) Unknown Completed [facility] H1n1 Vaccine Unknown Completed [facility] Influenza Virus Vaccine Quad IM 3+ YRS Unknown Completed [facility] Influenza Virus Vaccine Unknown Completed [facility] SARS-COV-2 COVID-19 PFIZER VACCINE Unknown Completed [facility] Influenza Virus Vaccine Quad IM, Preserv and ABX Free 6 MO-64 YRS (FLUCELVAX) Unknown Completed [facility] H1n1 Vaccine Unknown Completed [facility] Influenza Virus Vaccine Quad IM 3+ YRS Unknown Completed [facility] Influenza Virus Vaccine Unknown Completed [facility] SARS-COV-2 COVID-19 PFIZER VACCINE Unknown Completed [facility] Influenza Virus Vaccine Quad IM, Preserv and ABX Free 6 MO-64 YRS (FLUCELVAX) Unknown Completed [facility] H1n1 Vaccine Unknown Completed [facility] Influenza Virus Vaccine Quad IM 3+ YRS Unknown Completed [facility] Influenza Virus Vaccine Unknown Completed [facility] SARS-COV-2 COVID-19 PFIZER VACCINE Unknown Completed [facility] Influenza Virus Vaccine Quad IM, Preserv and ABX Free 6 MO-64 YRS (FLUCELVAX) Unknown Completed [facility] H1n1 Vaccine Unknown Completed [facility] Influenza Virus Vaccine Quad IM 3+ YRS Unknown Completed [facility] Influenza Virus Vaccine Unknown Completed [facility] SARS-COV-2 COVID-19 PFIZER VACCINE Unknown Completed [facility] Influenza Virus Vaccine Quad IM, Preserv and ABX Free 6 MO-64 YRS (FLUCELVAX) Unknown Completed [facility] H1n1 Vaccine Unknown Completed [facility] Influenza Virus Vaccine Quad IM 3+ YRS Unknown Completed [facility] Influenza Virus Vaccine Unknown Completed [facility] SARS-COV-2 COVID-19 PFIZER VACCINE Unknown Completed [facility] Influenza Virus Vaccine Quad IM, Preserv and ABX Free 6 MO-64 YRS (FLUCELVAX) Unknown Completed [facility] H1n1 Vaccine Unknown Completed [facility] Influenza Virus Vaccine Quad IM 3+ YRS Unknown Completed [facility] Influenza Virus Vaccine Unknown Completed [facility] SARS-COV-2 COVID-19 PFIZER VACCINE Unknown Completed [facility] Influenza Virus Vaccine Quad IM, Preserv and ABX Free 6 MO-64 YRS (FLUCELVAX) Unknown Completed [facility] H1n1 Vaccine Unknown Completed [facility] Influenza Virus Vaccine Quad IM 3+ YRS Unknown Completed [facility] Influenza Virus Vaccine Unknown Completed [facility] SARS-COV-2 COVID-19 PFIZER VACCINE Unknown Completed [facility] Influenza Virus Vaccine Quad IM, Preserv and ABX Free 6 MO-64 YRS (FLUCELVAX) Unknown Completed [facility] Influenza Virus Vaccine Unknown Completed [facility] SARS-COV-2 COVID-19 PFIZER VACCINE Unknown Completed [facility] Influenza Virus Vaccine Quad IM, Preserv and ABX Free 6 MO-64 YRS (FLUCELVAX) Unknown Completed [facility] H1n1 Vaccine Unknown Completed [facility] Influenza Virus Vaccine Quad IM 3+ YRS Unknown Completed [facility] Influenza Virus Vaccine Unknown Completed [facility] SARS-COV-2 COVID-19 PFIZER VACCINE Unknown Completed [facility] Influenza Virus Vaccine Quad IM, Preserv and ABX Free 6 MO-64 YRS (FLUCELVAX) Unknown Completed [facility] H1n1 Vaccine Unknown Completed [facility] Influenza Virus Vaccine Quad IM 3+ YRS Unknown Completed [facility] Influenza Virus Vaccine Unknown Completed [facility] SARS-COV-2 COVID-19 PFIZER VACCINE Unknown Completed [facility] Influenza Virus Vaccine Quad IM, Preserv and ABX Free 6 MO-64 YRS (FLUCELVAX) Unknown Completed [facility] H1n1 Vaccine Unknown Completed [facility] Influenza Virus Vaccine Quad IM 3+ YRS Unknown Completed [facility] Influenza Virus Vaccine Unknown Completed [facility] SARS-COV-2 COVID-19 PFIZER VACCINE Unknown Completed [facility] Influenza Virus Vaccine Quad IM, Preserv and ABX Free 6 MO-64 YRS (FLUCELVAX) Unknown Completed [facility] H1n1 Vaccine Unknown [facility] Vaccine Quad IM 3+ YRS Unknown Completed [facility] Influenza Virus Vaccine Unknown Completed [facility] SARS-COV-2 COVID-19 PFIZER VACCINE Unknown Completed [facility] Influenza Virus Vaccine Quad IM, Preserv and ABX Free 6 MO-64 YRS (FLUCELVAX) Unknown Completed [facility] H1n1 Vaccine Unknown Completed [facility] Influenza Virus Vaccine Unknown Completed [facility] Influenza Virus Vaccine Quad IM 3+ YRS Unknown Completed [facility] SARS-COV-2 COVID-19 PFIZER VACCINE Unknown Completed [facility] Influenza Virus Vaccine Quad IM, Preserv and ABX Free 6 MO-64 YRS (FLUCELVAX) Unknown Completed [facility] H1n1 Vaccine Unknown Completed [facility] Influenza Virus Vaccine Unknown Completed [facility] Influenza Virus Vaccine Quad IM 3+ YRS Unknown Completed [facility] SARS-COV-2 COVID-19 PFIZER VACCINE Unknown Completed [facility] Influenza Virus Vaccine Quad IM, Preserv and ABX Free 6 MO-64 YRS (FLUCELVAX) Unknown Completed [facility] H1n1 Vaccine Unknown Completed [facility] Influenza Virus Vaccine Unknown Completed [facility] Influenza Virus Vaccine Quad IM 3+ YRS Unknown Completed [facility] SARS-COV-2 COVID-19 PFIZER VACCINE Unknown Completed [facility] Influenza Virus Vaccine Quad IM, Preserv and ABX Free 6 MO-64 YRS (FLUCELVAX) Unknown Completed [facility] H1n1 Vaccine Unknown Completed [facility] Influenza Virus Vaccine Unknown Completed [facility] Influenza Virus Vaccine Quad IM 3+ YRS Unknown Completed [facility] SARS-COV-2 COVID-19 PFIZER VACCINE Unknown Completed [facility] Influenza Virus Vaccine Quad IM, Preserv and ABX Free 6 MO-64 YRS (FLUCELVAX) Unknown Completed [facility] H1n1 Vaccine Unknown Completed [facility] Influenza Virus Vaccine Quad IM 3+ YRS Unknown Completed [facility] Influenza Virus Vaccine Quad IM, Preserv and ABX Free 6 MO-64 YRS (FLUCELVAX) Unknown Completed [facility] Influenza Virus Vaccine Unknown Completed [facility] SARS-COV-2 COVID-19 PFIZER VACCINE Unknown Completed [facility] H1n1 Vaccine Unknown Completed [facility] Influenza Virus Vaccine Unknown Completed [facility] Influenza Virus Vaccine Quad IM 3+ YRS Unknown Completed [facility] SARS-COV-2 COVID-19 PFIZER VACCINE Unknown Completed [facility] Influenza Virus Vaccine Quad IM, Preserv and ABX Free 6 MO-64 YRS (FLUCELVAX) Unknown Completed [facility] H1n1 Vaccine Unknown Completed [facility] Influenza Virus Vaccine Unknown Completed [facility] Influenza Virus Vaccine Quad IM 3+ YRS Unknown Completed [facility] SARS-COV-2 COVID-19 PFIZER VACCINE Unknown Completed [facility] Influenza Virus Vaccine Quad IM, Preserv and ABX Free 6 MO-64 YRS (FLUCELVAX) Unknown Completed [facility] H1n1 Vaccine Unknown Completed [facility] Influenza Virus Vaccine Unknown Completed [facility] Influenza Virus Vaccine Quad IM 3+ YRS Unknown Completed [facility] SARS-COV-2 COVID-19 PFIZER VACCINE Unknown Completed [facility] Influenza Virus Vaccine Quad IM, Preserv and ABX Free 6 MO-64 YRS (FLUCELVAX) Unknown Completed [facility] H1n1 Vaccine Unknown Completed [facility] Influenza Virus Vaccine Unknown Completed [facility] Influenza Virus Vaccine Quad IM 3+ YRS Unknown Completed [facility] SARS-COV-2 COVID-19 PFIZER VACCINE Unknown Completed [facility] Influenza Virus Vaccine Quad IM, Preserv and ABX Free 6 MO-64 YRS (FLUCELVAX) Unknown Completed [facility] H1n1 Vaccine Unknown Completed [facility] Influenza Virus Vaccine Unknown Completed [facility] Influenza Virus Vaccine Quad IM 3+ YRS Unknown Completed [facility] SARS-COV-2 COVID-19 PFIZER VACCINE Unknown Completed [facility] Influenza Virus Vaccine Quad IM, Preserv and ABX Free 6 MO-64 YRS (FLUCELVAX) Unknown Completed [facility] H1n1 Vaccine Unknown Completed [facility] Influenza Virus Vaccine Unknown Completed [facility] Influenza Virus Vaccine Quad IM 3+ YRS Unknown Completed [facility] SARS-COV-2 COVID-19 PFIZER VACCINE Unknown Completed [facility] Influenza Virus Vaccine Quad IM, Preserv and ABX Free 6 MO-64 YRS (FLUCELVAX) Unknown Completed [facility] H1n1 Vaccine Unknown Completed [facility] Influenza Virus Vaccine Unknown Completed [facility] Influenza Virus Vaccine Quad IM 3+ YRS Unknown Completed [facility] SARS-COV-2 COVID-19 PFIZER VACCINE Unknown Completed [facility] Influenza Virus Vaccine Quad IM, Preserv and ABX Free 6 MO-64 YRS (FLUCELVAX) Unknown Completed [facility] H1n1 Vaccine Unknown Completed [facility] Influenza Virus Vaccine Quad IM 3+ YRS Unknown Completed [facility] Influenza Virus Vaccine Unknown Completed [facility] SARS-COV-2 COVID-19 PFIZER VACCINE Unknown Completed [facility] Influenza Virus Vaccine Quad IM, Preserv and ABX Free 6 MO-64 YRS (FLUCELVAX) Unknown Completed [facility] H1n1 Vaccine Unknown Completed [facility] Influenza Virus Vaccine Quad IM 3+ YRS Unknown Completed [facility] Influenza Virus Vaccine Quad IM, Preserv and ABX Free 6 MO-64 YRS (FLUCELVAX) Unknown Completed [facility] Influenza Virus Vaccine Unknown Completed [facility] SARS-COV-2 COVID-19 PFIZER VACCINE Unknown Completed [facility] H1n1 Vaccine Unknown Completed [facility] Influenza Virus Vaccine Unknown Completed [facility] Influenza Virus Vaccine Quad IM 3+ YRS Unknown Completed [facility] SARS-COV-2 COVID-19 PFIZER VACCINE Unknown Completed [facility] Influenza Virus Vaccine Quad IM, Preserv and ABX Free 6 MO-64 YRS (FLUCELVAX) Unknown Completed [facility] H1n1 Vaccine Unknown [facility] Vaccine Unknown Completed [facility] Influenza Virus Vaccine Quad IM 3+ YRS Unknown Completed [facility] SARS-COV-2 COVID-19 PFIZER VACCINE Unknown Completed [facility] Influenza Virus Vaccine Quad IM, Preserv and ABX Free 6 MO-64 YRS (FLUCELVAX) Unknown Completed [facility] H1n1 Vacc[facility] Unknown [facility] Influ[facility] Virus Vaccine Unknown Completed [facility] Influenza Virus Vaccine Quad IM 3+ YRS Unknown Completed [facility] SARS-COV-2 COVID-19 PFIZER VACCINE Unknown Completed [facility] Influenza Virus Vaccine Quad IM, Preserv and ABX Free 6 MO-64 YRS (FLUCELVAX) Unknown Completed [facility] H1n1 Vaccine Unknown Completed [facility] Influenza Virus Vaccine Quad IM 3+ YRS Unknown Completed [facility] Influenza Virus Vaccine Quad IM, Preserv and ABX Free 6 MO-64 YRS (FLUCELVAX) Unknown Completed [facility] Influenza Virus Vaccine Unknown Completed [facility] SARS-COV-2 COVID-19 PFIZER VACCINE Unknown Completed [facility] H1n1 Vaccine Unknown Completed [facility] Influenza Virus Vaccine Quad IM 3+ YRS Unknown Completed [facility] H1n1 Vaccine Unknown Completed [facility] Influenza Virus Vaccine Unknown Completed [facility] Influenza Virus Vaccine Quad IM 3+ YRS Unknown Completed [facility] SARS-COV-2 COVID-19 PFIZER VACCINE Unknown Completed [facility] Influenza Virus Vaccine Quad IM, Preserv and ABX Free 6 MO-64 YRS (FLUCELVAX) Unknown Completed [facility] H1n1 Vaccine Unknown Completed [facility] Influenza Virus Vaccine Unknown Completed [facility] Influenza Virus Vaccine Quad IM 3+ YRS Unknown Completed [facility] SARS-COV-2 COVID-19 PFIZER VACCINE Unknown Completed [facility] Influenza Virus Vaccine Quad IM, Preserv and ABX Free 6 MO-64 YRS (FLUCELVAX) Unknown Completed [facility] H1n1 Vaccine Unknown Completed [facility] Influenza Virus Vaccine Unknown Completed [facility] Influenza Virus Vaccine Quad IM 3+ YRS Unknown Completed [facility] SARS-COV-2 COVID-19 PFIZER VACCINE Unknown Completed [facility] Influenza Virus Vaccine Quad IM, Preserv and ABX Free 6 MO-64 YRS (FLUCELVAX) Unknown Completed [facility] H1n1 Vaccine Unknown Completed [facility] Influenza Virus Vaccine Unknown Completed [facility] Influenza Virus Vaccine Quad IM 3+ YRS Unknown Completed [facility] SARS-COV-2 COVID-19 PFIZER VACCINE Unknown Completed [facility] Influenza Virus Vaccine Quad IM, Preserv and ABX Free 6 MO-64 YRS (FLUCELVAX) Unknown Completed [facility] H1n1 Vaccine Unknown Completed [facility] Influenza Virus Vaccine Quad IM 3+ YRS Unknown Completed [facility] Influenza Virus Vaccine Quad IM, Preserv and ABX Free 6 MO-64 YRS (FLUCELVAX) Unknown Completed [facility] Influenza Virus Vaccine Unknown Completed [facility] SARS-COV-2 COVID-19 PFIZER VACCINE Unknown Completed [facility] H1n1 Vaccine Unknown Completed [facility] Influenza Virus Vaccine Unknown Completed [facility] Influenza Virus Vaccine Quad IM 3+ YRS Unknown Completed [facility] SARS-COV-2 COVID-19 PFIZER VACCINE Unknown Completed [facility] Influenza Virus Vaccine Quad IM, Preserv and ABX Free 6 MO-64 YRS (FLUCELVAX) Unknown Completed [facility] H1n1 Vaccine Unknown Completed [facility] Influenza Virus Vaccine Unknown Completed [facility] Influenza Virus Vaccine Quad IM 3+ YRS Unknown Completed [facility] SARS-COV-2 COVID-19 PFIZER VACCINE Unknown Completed [facility] Influenza Virus Vaccine Quad IM, Preserv and ABX Free 6 MO-64 YRS (FLUCELVAX) Unknown Completed [facility] H1n1 Vaccine Unknown Completed [facility] Influenza Virus Vaccine Unknown Completed [facility] Influenza Virus Vaccine Quad IM 3+ YRS Unknown Completed [facility] SARS-COV-2 COVID-19 PFIZER VACCINE Unknown Completed [facility] Influenza Virus Vaccine Quad IM, Preserv and ABX Free 6 MO-64 YRS (FLUCELVAX) Unknown Completed [facility] H1n1 Vaccine Unknown Completed [facility] Influenza Virus Vaccine Unknown Completed [facility] Influenza Virus Vaccine Quad IM 3+ YRS Unknown Completed [facility] SARS-COV-2 COVID-19 PFIZER VACCINE Unknown Completed [facility] Influenza Virus Vaccine Quad IM, Preserv and ABX Free 6 MO-64 YRS (FLUCELVAX) Unknown Completed [facility] H1n1 Vaccine Unknown Completed [facility] Influenza Virus Vaccine Unknown Completed [facility] Influenza Virus Vaccine Quad IM 3+ YRS Unknown Completed [facility] SARS-COV-2 COVID-19 PFIZER VACCINE Unknown Completed [facility] Influenza Virus Vaccine Quad IM, Preserv and ABX Free 6 MO-64 YRS (FLUCELVAX) Unknown Completed [facility] H1n1 Vaccine Unknown Completed [facility] Influenza Virus Vaccine Unknown Completed [facility] Influenza Virus Vaccine Quad IM 3+ YRS Unknown Completed [facility] SARS-COV-2 COVID-19 PFIZER VACCINE Unknown Completed [facility] Influenza Virus Vaccine Quad IM, Preserv and ABX Free 6 MO-64 YRS (FLUCELVAX) Unknown Completed [facility] H1n1 Vaccine Unknown Completed [facility] Influenza Virus Vaccine Unknown Completed [facility] Influenza Virus Vaccine Quad IM 3+ YRS Unknown Completed [facility] SARS-COV-2 COVID-19 PFIZER VACCINE Unknown Completed [facility] Influenza Virus Vaccine Quad IM, Preserv and ABX Free 6 MO-64 YRS (FLUCELVAX) Unknown Completed [facility] H1n1 Vaccine Unknown Completed [facility] Influenza Virus Vaccine Quad IM 3+ YRS Unknown Completed [facility] Influenza Virus Vaccine Quad IM, Preserv and ABX Free 6 MO-64 YRS (FLUCELVAX) Unknown Completed [facility] Influenza Virus Vaccine Unknown Completed [facility] SARS-COV-2 COVID-19 PFIZER VACCINE Unknown Completed [facility] H1n1 Vaccine Unknown Completed [facility] Influenza Virus Vaccine Unknown Completed [facility] Influenza Virus Vaccine Quad IM 3+ YRS Unknown Completed [facility] SARS-COV-2 COVID-19 PFIZER VACCINE Unknown Completed [facility] Influenza Virus Vaccine Quad IM, Preserv and ABX Free 6 MO-64 YRS (FLUCELVAX) Unknown Completed [facility] H1n1 Vaccine Unknown Completed [facility] Influenza Virus Vaccine Unknown Completed [facility] Influenza Virus Vaccine Quad IM 3+ YRS Unknown Completed [facility] SARS-COV-2 COVID-19 PFIZER VACCINE Unknown Completed [facility] Influenza Virus Vaccine Quad IM, Preserv and ABX Free 6 MO-64 YRS (FLUCELVAX) Unknown Completed [facility] H1n1 Vaccine Unknown Completed [facility] Influenza Virus Vaccine Unknown Completed [facility] Influenza Virus Vaccine Quad IM 3+ YRS Unknown Completed [facility] SARS-COV-2 COVID-19 PFIZER VACCINE Unknown Completed [facility] Influenza Virus Vaccine Quad IM, Preserv and ABX Free 6 MO-64 YRS (FLUCELVAX) Unknown Completed [facility] H1n1 Vaccine Unknown Completed [facility] Influenza Virus Vaccine Unknown Completed [facility] Influenza Virus Vaccine Quad IM 3+ YRS Unknown Completed [facility] SARS-COV-2 COVID-19 PFIZER VACCINE Unknown Completed [facility] Influenza Virus Vaccine Quad IM, Preserv and ABX Free 6 MO-64 YRS (FLUCELVAX) Unknown Completed [facility] H1n1 Vaccine Unknown Completed [facility] Influenza Virus Vaccine Unknown Completed [facility] Influenza Virus Vaccine Quad IM 3+ YRS Unknown Completed [facility] SARS-COV-2 COVID-19 PFIZER VACCINE Unknown Completed [facility] Influenza Virus Vaccine Quad IM, Preserv and ABX Free 6 MO-64 YRS (FLUCELVAX) Unknown Completed [facility] H1n1 Vaccine Unknown Completed [facility] Influenza Virus Vaccine Unknown Completed [facility] Influenza Virus Vaccine Quad IM 3+ YRS Unknown Completed [facility] SARS-COV-2 COVID-19 PFIZER VACCINE Unknown Completed [facility] Influenza Virus Vaccine Quad IM, Preserv and ABX Free 6 MO-64 YRS (FLUCELVAX) Unknown Completed [facility] H1n1 Vaccine Unknown Completed [facility] Influenza Virus Vaccine Unknown Completed [facility] Influenza Virus Vaccine Quad IM 3+ YRS Unknown Completed [facility] SARS-COV-2 COVID-19 PFIZER VACCINE Unknown Completed [facility] Influenza Virus Vaccine Quad IM, Preserv and ABX Free 6 MO-64 YRS (FLUCELVAX) Unknown Completed [facility] H1n1 Vaccine Unknown Completed [facility] Influenza Virus Vaccine Unknown Completed [facility] Influenza Virus Vaccine Quad IM 3+ YRS Unknown Completed [facility] SARS-COV-2 COVID-19 PFIZER VACCINE Unknown Completed [facility] Influenza Virus Vaccine Quad IM, Preserv and ABX Free 6 MO-64 YRS (FLUCELVAX) Unknown Completed [facility] H1n1 Vacc[facility]ine [facility] Completed [facility] Influenza Virus Vaccine Quad IM 3+ YRS Unknown Completed [facility] SARS-COV-2 COVID-19 PFIZER VACCINE Unknown Completed [facility] Influenza Virus Vaccine Quad IM, Preserv and ABX Free 6 MO-64 YRS (FLUCELVAX) Unknown Completed [facility] H1n1 Vaccine Unknown Completed [facility] Influenza Virus Vaccine Quad IM 3+ YRS Unknown Completed [facility] Influenza Virus Vaccine Quad IM, Preserv and ABX Free 6 MO-64 YRS (FLUCELVAX) Unknown Completed [facility] Influenza Virus Vaccine Unknown Completed [facility] SARS-COV-2 COVID-19 PFIZER VACCINE Unknown Completed [facility] H1n1 Vaccine Unknown Completed [facility] Influenza Virus Vaccine Unknown Completed [facility] Influenza Virus Vaccine Quad IM 3+ YRS Unknown Completed [facility] SARS-COV-2 COVID-19 PFIZER VACCINE Unknown Completed [facility] Influenza Virus Vaccine Quad IM, Preserv and ABX Free 6 MO-64 YRS (FLUCELVAX) Unknown Completed [facility] H1n1 Vaccine Unknown Completed [facility] Influenza Virus Vaccine Unknown Completed [facility] Influenza Virus Vaccine Quad IM 3+ YRS Unknown Completed [facility] SARS-COV-2 COVID-19 PFIZER VACCINE Unknown Completed [facility] Influenza Virus Vaccine Quad IM, Preserv and ABX Free 6 MO-64 YRS (FLUCELVAX) Unknown Completed [facility] H1n1 Vaccine Unknown Completed [facility] Influenza Virus Vaccine Quad IM 3+ YRS Unknown Completed [facility] Influenza Virus Vaccine Quad IM, Preserv and ABX Free 6 MO-64 YRS (FLUCELVAX) Unknown Completed [facility] Influenza Virus Vaccine Unknown Completed [facility] SARS-COV-2 COVID-19 PFIZER VACCINE Unknown Completed [facility] H1n1 Vaccine Unknown Completed [facility] Influenza Virus Vaccine Unknown Completed [facility] Influenza Virus Vaccine Quad IM 3+ YRS Unknown Completed [facility] SARS-COV-2 COVID-19 PFIZER VACCINE Unknown Completed [facility] Influenza Virus Vaccine Quad IM, Preserv and ABX Free 6 MO-64 YRS (FLUCELVAX) Unknown Completed [facility] H1n1 Vaccine Unknown Completed [facility] Influenza Virus Vaccine Unknown Completed [facility] Influenza Virus Vaccine Quad IM 3+ YRS Unknown Completed [facility] SARS-COV-2 COVID-19 PFIZER VACCINE Unknown Completed [facility] Influenza Virus Vaccine Quad IM, Preserv and ABX Free 6 MO-64 YRS (FLUCELVAX) Unknown Completed [facility] H1n1 Vaccine Unknown Completed [facility] Influenza Virus Vaccine Quad IM 3+ YRS Unknown Completed [facility] Influenza Virus Vaccine Quad IM, Preserv and ABX Free 6 MO-64 YRS (FLUCELVAX) Unknown Completed [facility] Influenza Virus Vaccine Unknown Completed [facility] SARS-COV-2 COVID-19 PFIZER VACCINE Unknown Completed [facility] H1n1 Vaccine Unknown Completed [facility] Influenza Virus Vaccine Unknown Completed [facility] Influenza Virus Vaccine Quad IM 3+ YRS Unknown Completed [facility] SARS-COV-2 COVID-19 PFIZER VACCINE Unknown Completed [facility] Influenza Virus Vaccine Quad IM, Preserv and ABX Free 6 MO-64 YRS (FLUCELVAX) Unknown Completed [facility] H1n1 Vaccine Unknown Completed [facility] Influenza Virus Vaccine Unknown Completed [facility] Influenza Virus Vaccine Quad IM 3+ YRS Unknown Completed [facility] SARS-COV-2 COVID-19 PFIZER VACCINE Unknown Completed [facility] Influenza Virus Vaccine Quad IM, Preserv and ABX Free 6 MO-64 YRS (FLUCELVAX) Unknown Completed [facility] H1n1 Vaccine Unknown Completed [facility] Influenza Virus Vaccine Unknown Completed [facility] Influenza Virus Vaccine Quad IM 3+ YRS Unknown Completed [facility] SARS-COV-2 COVID-19 PFIZER VACCINE Unknown Completed [facility] Influenza Virus Vaccine Quad IM, Preserv and ABX Free 6 MO-64 YRS (FLUCELVAX) Unknown Completed [facility] H1n1 Vaccine Unknown Completed [facility] Influenza Virus Vaccine Unknown Completed [facility] Influenza Virus Vaccine Quad IM 3+ YRS Unknown Completed [facility] SARS-COV-2 COVID-19 PFIZER VACCINE Unknown Completed [facility] Influenza Virus Vaccine Quad IM, Preserv and ABX Free 6 MO-64 YRS (FLUCELVAX) Unknown Completed [facility] H1n1 Vacc[facility]ine [facility] Completed [facility] Influenza Virus Vaccine Quad IM 3+ YRS Unknown Completed [facility] SARS-COV-2 COVID-19 PFIZER VACCINE Unknown Completed [facility] Influenza Virus Vaccine Quad IM, Preserv and ABX Free 6 MO-64 YRS (FLUCELVAX) Unknown Completed [facility] H1n1 Vaccine Unknown Completed [facility] Influenza Virus Vaccine Unknown Completed [facility] Influenza Virus Vaccine Quad IM 3+ YRS Unknown Completed [facility] SARS-COV-2 COVID-19 PFIZER VACCINE Unknown Completed [facility] Influenza Virus Vaccine Quad IM, Preserv and ABX Free 6 MO-64 YRS (FLUCELVAX) Unknown Completed [facility] H1n1 Vaccine Unknown Completed [facility] Influenza Virus Vaccine Unknown Completed [facility] Influenza Virus Vaccine Quad IM 3+ YRS Unknown Completed [facility] SARS-COV-2 COVID-19 PFIZER VACCINE Unknown Completed [facility] Influenza Virus Vaccine Quad IM, Preserv and ABX Free 6 MO-64 YRS (FLUCELVAX) Unknown Completed [facility] H1n1 Vaccine Unknown Completed [facility] Influenza Virus Vaccine Unknown Completed [facility] Influenza Virus Vaccine Quad IM 3+ YRS Unknown Completed [facility] SARS-COV-2 COVID-19 PFIZER VACCINE Unknown Completed [facility] Influenza Virus Vaccine Quad IM, Preserv and ABX Free 6 MO-64 YRS (FLUCELVAX) Unknown Completed [facility] H1n1 Vaccine Unknown Completed [facility] Influenza Virus Vaccine Unknown Completed [facility] Influenza Virus Vaccine Quad IM 3+ YRS Unknown Completed [facility] SARS-COV-2 COVID-19 PFIZER VACCINE Unknown Completed [facility] Influenza Virus Vaccine Quad IM, Preserv and ABX Free 6 MO-64 YRS (FLUCELVAX) Unknown Completed [facility] H1n1 Vaccine Unknown Completed [facility] Influenza Virus Vaccine Unknown Completed [facility] Influenza Virus Vaccine Quad IM 3+ YRS Unknown Completed [facility] SARS-COV-2 COVID-19 PFIZER VACCINE Unknown Completed [facility] Influenza Virus Vaccine Quad IM, Preserv and ABX Free 6 MO-64 YRS (FLUCELVAX) Unknown Completed [facility] H1n1 Vacc[facility] Vaccine Unknown Completed [facility] Influenza Virus Vaccine Quad IM 3+ YRS Unknown Completed [facility] SARS-COV-2 COVID-19 PFIZER VACCINE Unknown Completed [facility] Influenza Virus Vaccine Quad IM, Preserv and ABX Free 6 MO-64 YRS (FLUCELVAX) Unknown Completed [facility] H1n1 Vaccine Unknown Completed [facility] Influenza Virus Vaccine Unknown Completed [facility] Influenza Virus Vaccine Quad IM 3+ YRS Unknown Completed [facility] SARS-COV-2 COVID-19 PFIZER VACCINE Unknown Completed [facility] Influenza Virus Vaccine Quad IM, Preserv and ABX Free 6 MO-64 YRS (FLUCELVAX) Unknown Completed [facility] H1n1 Vaccine Unknown Completed [facility] Influenza Virus Vaccine Unknown Completed [facility] Influenza Virus Vaccine Quad IM 3+ YRS Unknown Completed [facility] SARS-COV-2 COVID-19 PFIZER VACCINE Unknown Completed [facility] Influenza Virus Vaccine Quad IM, Preserv and ABX Free 6 MO-64 YRS (FLUCELVAX) Unknown Completed [facility] H1n1 Vaccine Unknown Completed [facility] Influenza Virus Vaccine Unknown Completed [facility] Influenza Virus Vaccine Quad IM 3+ YRS Unknown Completed [facility] SARS-COV-2 COVID-19 PFIZER VACCINE Unknown Completed [facility] Influenza Virus Vaccine Quad IM, Preserv and ABX Free 6 MO-64 YRS (FLUCELVAX) Unknown Completed [facility] H1n1 Vaccine Unknown Completed [facility] Influenza Virus Vaccine Unknown Completed [facility] Influenza Virus Vaccine Quad IM 3+ YRS Unknown Completed [facility] SARS-COV-2 COVID-19 PFIZER VACCINE Unknown Completed [facility] Influenza Virus Vaccine Quad IM, Preserv and ABX Free 6 MO-64 YRS (FLUCELVAX) Unknown Completed [facility] H1n1 Vaccine Unknown Completed [facility] Influenza Virus Vaccine Unknown Completed [facility] Influenza Virus Vaccine Quad IM 3+ YRS Unknown Completed [facility] SARS-COV-2 COVID-19 PFIZER VACCINE Unknown Completed [facility] Influenza Virus Vaccine Quad IM, Preserv and ABX Free 6 MO-64 YRS (FLUCELVAX) Unknown Completed [facility] H1n1 Vaccine Unknown Completed [facility] Influenza Virus Vaccine Unknown Completed [facility] Influenza Virus Vaccine Quad IM 3+ YRS Unknown Completed [facility] SARS-COV-2 COVID-19 PFIZER VACCINE Unknown Completed [facility] Influenza Virus Vaccine Quad IM, Preserv and ABX Free 6 MO-64 YRS (FLUCELVAX) Unknown Completed [facility] H1n1 Vaccine Unknown Completed [facility] Influenza Virus Vaccine Unknown Completed [facility] Influenza Virus Vaccine Quad IM 3+ YRS Unknown Completed [facility] SARS-COV-2 COVID-19 PFIZER VACCINE Unknown Completed [facility] Influenza Virus Vaccine Quad IM, Preserv and ABX Free 6 MO-64 YRS (FLUCELVAX) Unknown Completed [facility] H1n1 Vaccine Unknown Completed [facility] Influenza Virus Vaccine Unknown Completed [facility] Influenza Virus Vaccine Quad IM 3+ YRS Unknown Completed [facility] SARS-COV-2 COVID-19 PFIZER VACCINE Unknown Completed [facility] Influenza Virus Vaccine Quad IM, Preserv and ABX Free 6 MO-64 YRS (FLUCELVAX) Unknown Completed [facility] H1n1 Vaccine Unknown Completed [facility] Influenza Virus Vaccine Unknown Completed [facility] Influenza Virus Vaccine Quad IM 3+ YRS Unknown Completed [facility] SARS-COV-2 COVID-19 PFIZER VACCINE Unknown Completed [facility] Influenza Virus Vaccine Quad IM, Preserv and ABX Free 6 MO-64 YRS (FLUCELVAX) Unknown Completed [facility] H1n1 Vaccine Unknown Completed [facility] Influenza Virus Vaccine Unknown Completed [facility] Influenza Virus Vaccine Quad IM 3+ YRS Unknown Completed [facility] SARS-COV-2 COVID-19 PFIZER VACCINE Unknown Completed [facility] Influenza Virus Vaccine Quad IM, Preserv and ABX Free 6 MO-64 YRS (FLUCELVAX) Unknown Completed [facility] H1n1 Vaccine Unknown Completed [facility] Influenza Virus Vaccine Unknown Completed [facility] Influenza Virus Vaccine Quad IM 3+ YRS Unknown Completed [facility] SARS-COV-2 COVID-19 PFIZER VACCINE Unknown Completed [facility] Influenza Virus Vaccine Quad IM, Preserv and ABX Free 6 MO-64 YRS (FLUCELVAX) Unknown Completed [facility] H1n1 Vaccine [facility]ine Unknown Completed [facility] Influenza Virus Vaccine Quad IM 3+ YRS Unknown Completed [facility] SARS-COV-2 COVID-19 PFIZER VACCINE Unknown Completed [facility] Influenza Virus Vaccine Quad IM, Preserv and ABX Free 6 MO-64 YRS (FLUCELVAX) Unknown Completed [facility] H1n1 Vaccine Unknown Completed [facility] Influenza Virus Vaccine Unknown Completed [facility] Influenza Virus Vaccine Quad IM 3+ YRS Unknown Completed [facility] SARS-COV-2 COVID-19 PFIZER VACCINE Unknown Completed [facility] Influenza Virus Vaccine Quad IM, Preserv and ABX Free 6 MO-64 YRS (FLUCELVAX) Unknown Completed [facility] H1n1 Vaccine Unknown [facility] Influenza Virus Vaccine Unknown Completed [facility] Influenza Virus Vaccine Quad IM 3+ YRS Unknown Completed [facility] SARS-COV-2 COVID-19 PFIZER VACCINE Unknown Completed [facility] Influenza Virus Vaccine Quad IM, Preserv and ABX Free 6 MO-64 YRS (FLUCELVAX) Unknown Completed [facility] H1n1 Vaccine Unknown Completed [facility] Influenza Virus Vaccine Unknown Completed [facility] Influenza Virus Vaccine Quad IM 3+ YRS Unknown Completed [facility] SARS-COV-2 COVID-19 PFIZER VACCINE Unknown Completed [facility] Influenza Virus Vaccine Quad IM, Preserv and ABX Free 6 MO-64 YRS (FLUCELVAX) Unknown Completed [facility] H1n1 Vaccine Unknown Completed [facility] Influenza Virus Vaccine Unknown Completed [facility] Influenza Virus Vaccine Quad IM 3+ YRS Unknown Completed [facility] SARS-COV-2 COVID-19 PFIZER VACCINE Unknown Completed [facility] Influenza Virus Vaccine Quad IM, Preserv and ABX Free 6 MO-64 YRS (FLUCELVAX) Unknown Completed [facility] H1n1 Vaccine [facility] Vaccine Unknown Completed [facility] Influenza Virus Vaccine Quad IM 3+ YRS Unknown Completed [facility] SARS-COV-2 COVID-19 PFIZER VACCINE Unknown Completed [facility] Influenza Virus Vaccine Quad IM, Preserv and ABX Free 6 MO-64 YRS (FLUCELVAX) Unknown Completed [facility] H1n1 Vaccine Unknown Completed [facility] Influenza Virus Vaccine Unknown Completed [facility] Influenza Virus Vaccine Quad IM 3+ YRS Unknown Completed [facility] SARS-COV-2 COVID-19 PFIZER VACCINE Unknown Completed [facility] Influenza Virus Vaccine Quad IM, Preserv and ABX Free 6 MO-64 YRS (FLUCELVAX) Unknown Completed [facility] H1n1 Vaccine Unknown [facility] [facility] Influ[facility] Virus Vaccine Unknown Completed [facility] Influenza Virus Vaccine Quad IM 3+ YRS Unknown Completed [facility] SARS-COV-2 COVID-19 PFIZER VACCINE Unknown Completed [facility] Influenza Virus Vaccine Quad IM, Preserv and ABX Free 6 MO-64 YRS (FLUCELVAX) Unknown Completed [facility] H1n1 Vaccine [facility]ine Unknown Completed [facility] Influenza Virus Vaccine Quad IM 3+ YRS Unknown Completed [facility] SARS-COV-2 COVID-19 PFIZER VACCINE Unknown Completed [facility] Influenza Virus Vaccine Quad IM, Preserv and ABX Free 6 MO-64 YRS (FLUCELVAX) Unknown Completed [facility] H1n1 Vaccine Unknown Completed [facility] Influenza Virus Vaccine Unknown Completed [facility] Influenza Virus Vaccine Quad IM 3+ YRS Unknown Completed [facility] SARS-COV-2 COVID-19 PFIZER VACCINE Unknown Completed [facility] Influenza Virus Vaccine Quad IM, Preserv and ABX Free 6 MO-64 YRS (FLUCELVAX) Unknown Completed [facility] H1n1 Vaccine Unknown Completed [facility] Influenza Virus Vaccine Unknown Completed [facility] Influenza Virus Vaccine Quad IM 3+ YRS Unknown Completed [facility] SARS-COV-2 COVID-19 PFIZER VACCINE Unknown Completed [facility] Influenza Virus Vaccine Quad IM, Preserv and ABX Free 6 MO-64 YRS (FLUCELVAX) Unknown Completed [facility] H1n1 Vaccine Unknown Completed [facility] Influenza Virus Vaccine Unknown Completed [facility] Influenza Virus Vaccine Quad IM 3+ YRS Unknown Completed [facility] SARS-COV-2 COVID-19 PFIZER VACCINE Unknown Completed [facility] Influenza Virus Vaccine Quad IM, Preserv and ABX Free 6 MO-64 YRS (FLUCELVAX) Unknown Completed [facility] H1n1 Vaccine Unknown Completed [facility] Influenza Virus Vaccine Unknown Completed [facility] Influenza Virus Vaccine Quad IM 3+ YRS Unknown Completed [facility] SARS-COV-2 COVID-19 PFIZER VACCINE Unknown Completed [facility] Influenza Virus Vaccine Quad IM, Preserv and ABX Free 6 MO-64 YRS (FLUCELVAX) Unknown Completed [facility] H1n1 Vaccine Unknown Completed [facility] Influenza Virus Vaccine Unknown Completed [facility] Influenza Virus Vaccine Quad IM 3+ YRS Unknown Completed [facility] SARS-COV-2 COVID-19 PFIZER VACCINE Unknown Completed [facility] Influenza Virus Vaccine Quad IM, Preserv and ABX Free 6 MO-64 YRS (FLUCELVAX) Unknown Completed [facility] H1n1 Vaccine Unknown Completed [facility] Influenza Virus Vaccine Unknown Completed [facility] Influenza Virus Vaccine Quad IM 3+ YRS Unknown Completed [facility] SARS-COV-2 COVID-19 PFIZER VACCINE Unknown Completed [facility] Influenza Virus Vaccine Quad IM, Preserv and ABX Free 6 MO-64 YRS (FLUCELVAX) Unknown Completed [facility] H1n1 Vaccine Unknown Completed [facility] Influenza Virus Vaccine Unknown Completed [facility] Influenza Virus Vaccine Quad IM 3+ YRS Unknown Completed [facility] SARS-COV-2 COVID-19 PFIZER VACCINE Unknown Completed [facility] Influenza Virus Vaccine Quad IM, Preserv and ABX Free 6 MO-64 YRS (FLUCELVAX) Unknown Completed [facility] H1n1 Vaccine Unknown Completed [facility] Influenza Virus Vaccine Unknown Completed [facility] Influenza Virus Vaccine Quad IM 3+ YRS Unknown Completed [facility] SARS-COV-2 COVID-19 PFIZER VACCINE Unknown Completed [facility] Influenza Virus Vaccine Quad IM, Preserv and ABX Free 6 MO-64 YRS (FLUCELVAX) Unknown Completed [facility] H1n1 Vaccine Unknown Completed [facility] Influenza Virus Vaccine Unknown Completed [facility] Influenza Virus Vaccine Quad IM 3+ YRS Unknown Completed [facility] SARS-COV-2 COVID-19 PFIZER VACCINE Unknown Completed [facility] Influenza Virus Vaccine Quad IM, Preserv and ABX Free 6 MO-64 YRS (FLUCELVAX) Unknown Completed [facility] H1n1 Vaccine Unknown Completed [facility] Influenza Virus Vaccine Unknown Completed [facility] Influenza Virus Vaccine Quad IM 3+ YRS Unknown Completed [facility] SARS-COV-2 COVID-19 PFIZER VACCINE Unknown Completed [facility] Influenza Virus Vaccine Quad IM, Preserv and ABX Free 6 MO-64 YRS (FLUCELVAX) Unknown Completed [facility] H1n1 Vaccine Unknown Completed [facility] Influenza Virus Vaccine Unknown Completed [facility] Influenza Virus Vaccine Quad IM 3+ YRS Unknown Completed [facility] SARS-COV-2 COVID-19 PFIZER VACCINE Unknown Completed [facility] Influenza Virus Vaccine Quad IM, Preserv and ABX Free 6 MO-64 YRS (FLUCELVAX) Unknown Completed [facility] H1n1 Vaccine Unknown Completed [facility] Influenza Virus Vaccine Unknown Completed [facility] Influenza Virus Vaccine Quad IM 3+ YRS Unknown Completed [facility] SARS-COV-2 COVID-19 PFIZER VACCINE Unknown Completed [facility] Influenza Virus Vaccine Quad IM, Preserv and ABX Free 6 MO-64 YRS (FLUCELVAX) Unknown Completed [facility] Flu Injectable MDCK Pres-Free (FLUCELVAX) Unknown Completed [facility] H1n1 Vaccine Unknown Completed [facility] Influenza Virus Vaccine Unknown Completed [facility] Influenza Virus Vaccine Quad IM 3+ YRS Unknown Completed [facility] SARS-COV-2 COVID-19 PFIZER VACCINE Unknown Completed [facility] Influenza Virus Vaccine Quad IM, Preserv and ABX Free 6 MO-64 YRS (FLUCELVAX) Unknown Completed [facility] Flu Injectable MDCK Pres-Free (FLUCELVAX) Unknown Completed [facility] H1n1 Vaccine Unknown Completed [facility] Influenza Virus Vaccine Unknown Completed [facility] Influenza Virus Vaccine Quad IM 3+ YRS Unknown Completed [facility] SARS-COV-2 COVID-19 PFIZER VACCINE Unknown Completed [facility] Influenza Virus Vaccine Quad IM, Preserv and ABX Free 6 MO-64 YRS (FLUCELVAX) Unknown Completed [facility] Flu Injectable MDCK Pres-Free (FLUCELVAX) Unknown Completed [facility] H1n1 Vaccine Unknown Completed [facility] Influenza Virus Vaccine Unknown Completed [facility] Influenza Virus Vaccine Quad IM 3+ YRS Unknown Completed [facility] SARS-COV-2 COVID-19 PFIZER VACCINE Unknown Completed [facility] Influenza Virus Vaccine Quad IM, Preserv and ABX Free 6 MO-64 YRS (FLUCELVAX) Unknown Completed [facility] Flu Injectable MDCK Pres-Free (FLUCELVAX) Unknown Completed [facility] H1n1 Vaccine Unknown Completed [facility] Influenza Virus Vaccine Unknown Completed [facility] Influenza Virus Vaccine Quad IM 3+ YRS Unknown Completed [facility] SARS-COV-2 COVID-19 PFIZER VACCINE Unknown Completed [facility] Influenza Virus Vaccine Quad IM, Preserv and ABX Free 6 MO-64 YRS (FLUCELVAX) Unknown Completed [facility] Flu Injectable MDCK Pres-Free (FLUCELVAX) Unknown Completed [facility] H1n1 Vaccine Unknown Completed [facility] Influenza Virus Vaccine Unknown Completed [facility] Influenza Virus Vaccine Quad IM 3+ YRS Unknown Completed [facility] SARS-COV-2 COVID-19 PFIZER VACCINE Unknown Completed [facility] Influenza Virus Vaccine Quad IM, Preserv and ABX Free 6 MO-64 YRS (FLUCELVAX) Unknown Completed [facility] Flu Injectable MDCK Pres-Free (FLUCELVAX) Unknown Completed [facility] H1n1 Vaccine Unknown Completed [facility] Influenza Virus Vaccine Unknown Completed [facility] Influenza Virus Vaccine Quad IM 3+ YRS Unknown Completed [facility] SARS-COV-2 COVID-19 PFIZER VACCINE Unknown Completed [facility] Influenza Virus Vaccine Quad IM, Preserv and ABX Free 6 MO-64 YRS (FLUCELVAX) Unknown Completed [facility] Flu Injectable MDCK Pres-Free (FLUCELVAX) Unknown Completed [facility] Vital Signs Vital Name Observation Time Observation Value Comments S ource Systolic blood pressure 2024-07-11 10:05:00 115 mm[Hg] [facility] Diastolic blood pressure 2024-07-11 10:05:00 73 mm[Hg] [facility] Heart rate 2024-07-11 10:05:00 78 /min Lucy bruno [facility] Respiratory rate 2024-07-11 10:05:00 20 /min [facility] Oxygen saturation in Arterial blood by Pulse oximetry 2024-07-11 10:05:00 97 /min [facility] Body weight 2024-07-11 05:00:00 60.7 kg [facility] BMI 2024-07-11 05:00:00 30.02 kg/m2 [facility] Body temperature 2024-07-10 20:03:00 36.94 Beatriz [facility] Body height 2024-07-09 10:14:00 142.2 cm [facility] Systolic blood pressure 2024-07-11 10:05:00 115 mm[Hg] [facility] Diastolic blood pressure 2024-07-11 10:05:00 73 mm[Hg] [facility] Heart rate 2024-07-11 10:05:00 78 /min [facility] Respiratory rate 2024-07-11 10:05:00 20 /min Michelle Gracia [facility] Oxygen saturation in Arterial blood by Pulse oximetry 2024-07-11 10:05:00 97 /min Michelle ochoa [facility] Body weight 2024-07-11 05:00:00 60.7 kg John Gracia [facility] BMI 2024-07-11 05:00:00 30.02 kg/m2 John Gracia [facility] Body temperature 2024-07-10 20:03:00 36.94 Beatriz Michelle Gracia [facility] Body height 2024-07-09 10:14:00 142.2 cm John Gracia [facility] Systolic blood pressure 2024-05-03 15:31:00 122 mm[Hg] [facility] Diastolic blood pressure 2024-05-03 15:31:00 82 mm[Hg] [facility] Heart rate 2024-05-03 15:31:00 84 /min [facility] Body height 2024-05-03 15:31:00 142.2 cm [facility] Body weight 2024-05-03 15:31:00 62.097 kg [facility] BMI 2024-05-03 15:31:00 30.69 kg/m2 [facility] Oxygen saturation in Arterial blood by Pulse oximetry 2024-05-03 15:31:00 99 /min [facility] Systolic blood pressure 2024-04-12 16:56:00 115 mm[Hg] [facility] Diastolic blood pressure 2024-04-12 16:56:00 79 mm[Hg] [facility] Heart rate 2024-04-12 16:56:00 91 /min [facility] Respiratory rate 2024-04-12 16:56:00 18 /min [facility] Body height 2024-04-12 16:56:00 142.2 cm [facility] Body weight 2024-04-12 16:56:00 61.292 kg [facility] BMI 2024-04-12 16:56:00 30.29 kg/m2 [facility] Oxygen saturation in Arterial blood by Pulse oximetry 2024-04-12 16:56:00 98 /min [facility] Systolic blood pressure 2024-03-11 13:47:00 127 mm[Hg] [facility] Diastolic blood pressure 2024-03-11 13:47:00 71 mm[Hg] [facility] Heart rate 2024-03-11 13:47:00 96 /min [facility] Body temperature 2024-03-11 13:47:00 36.33 Beatriz [facility] Respiratory rate 2024-03-11 13:47:00 18 /min [facility] Body height 2024-03-11 13:47:00 142.2 cm [facility] Body weight 2024-03-11 13:47:00 62.823 kg [facility] BMI 2024-03-11 13:47:00 31.05 kg/m2 [facility] Oxygen saturation in Arterial blood by Pulse oximetry 2024-03-11 13:47:00 99 /min [facility] Systolic blood pressure 2024-03-09 16:39:00 114 mm[Hg] [facility] Diastolic blood pressure 2024-03-09 16:39:00 77 mm[Hg] [facility] Heart rate 2024-03-09 16:39:00 95 /min [facility] Body temperature 2024-03-09 16:39:00 36.72 Beatriz [facility] Body height 2024-03-09 16:39:00 142.2 cm [facility] Body weight 2024-03-09 16:39:00 62.732 kg [facility] BMI 2024-03-09 16:39:00 31.01 kg/m2 [facility] Oxygen saturation in Arterial blood by Pulse oximetry 2024-03-09 16:39:00 95 /min [facility] Systolic blood pressure 2024-03-09 16:36:00 114 mm[Hg] [facility] Diastolic blood pressure 2024-03-09 16:36:00 77 mm[Hg] [facility] Heart rate 2024-03-09 16:36:00 95 /min [facility] Body temperature 2024-03-09 16:36:00 36.72 Beatriz [facility] Body height 2024-03-09 16:36:00 142.2 cm [facility] Body weight 2024-03-09 16:36:00 62.732 [facility] 2024-03-09 16:36:00 31.01 kg/m2 [facility] in Arterial blood by Pulse oximetry 2024-03-09 16:36:00 98 /min [facility] Systolic blood pressure 2024-03-08 16:08:00 142 mm[Hg] [facility] Diastolic blood pressure 2024-03-08 16:08:00 84 mm[Hg] [facility] Heart rate 2024-03-08 16:02:00 81 /min [facility] 2024-03-08 16:02:00 18 /min [facility] Body height 2024-03-08 16:02:00 142.2 cm [facility] Body weight 2024-03-08 16:02:00 63.776 kg [facility] BMI 2024-03-08 16:02:00 31.52 kg/m2 [facility] Oxygen saturation in Arterial blood by Pulse oximetry 2024-03-08 16:02:00 98 /min [facility] Systolic blood pressure 2024-02-05 20:59:00 144 mm[Hg] [facility] Diastolic blood pressure 2024-02-05 20:59:00 82 mm[Hg] [facility] Heart rate 2024-02-05 20:50:00 87 /min [facility] 2024-02-05 20:50:00 18 /min [facility] Body height 2024-02-05 20:50:00 142.2 cm [facility] Body weight 2024-02-05 20:50:00 62.506 kg [facility] BMI 2024-02-05 20:50:00 30.89 kg/m2 [facility] Oxygen saturation in Arterial blood by Pulse oximetry 2024-02-05 20:50:00 97 /min [facility] Systolic blood pressure 2024-01-28 13:37:00 100 mm[Hg] [facility] Diastolic blood pressure 2024-01-28 13:37:00 68 mm[Hg] [facility] Heart rate 2024-01-28 13:37:00 87 /min [facility] Oxygen saturation in Arterial blood by Pulse oximetry 2024-01-28 13:37:00 97 /min [facility] Body temperature 2024-01-28 13:36:00 36.61 Beatriz [facility] Respiratory rate 2024-01-28 13:36:00 18 /min [facility] Body height 2024-01-28 13:36:00 142.2 cm [facility] Body weight 2024-01-28 13:36:00 61.689 kg [facility] BMI 2024-01-28 13:36:00 30.49 kg/m2 [facility] Systolic blood pressure 2024-01-13 18:19:00 123 mm[Hg] [facility] Diastolic blood pressure 2024-01-13 18:19:00 86 mm[Hg] [facility] Heart rate 2024-01-13 18:19:00 89 /min [facility] Body temperature 2024-01-13 18:19:00 36.22 Beatriz [facility] Body height 2024-01-13 18:19:00 142.2 cm [facility] Body weight 2024-01-13 18:19:00 62.143 kg [facility] BMI 2024-01-13 18:19:00 30.71 kg/m2 [facility] Oxygen saturation in Arterial blood by Pulse oximetry 2024-01-13 18:19:00 96 /min [facility] Systolic blood pressure 2023-12-15 19:41:00 138 mm[Hg] [facility] Diastolic blood pressure 2023-12-15 19:41:00 88 mm[Hg] [facility] Heart rate 2023-12-15 19:36:00 95 /min [facility] Body temperature 2023-12-15 19:36:00 37.17 Beatriz [facility] Body height 2023-12-15 19:36:00 121.9 cm [facility] Body weight 2023-12-15 19:36:00 63.912 kg [facility] BMI 2023-12-15 19:36:00 43.00 kg/m2 [facility] Oxygen saturation in Arterial blood by Pulse oximetry 2023-12-15 19:36:00 94 /min [facility] Systolic blood pressure 2023-11-24 04:00:00 103 mm[Hg] [facility] Diastolic blood pressure 2023-11-24 04:00:00 59 mm[Hg] [facility] Heart rate 2023-11-24 04:00:00 78 /min [facility] Respiratory rate 2023-11-24 04:00:00 20 /min [facility] Oxygen saturation in Arterial blood by Pulse oximetry 2023-11-24 04:00:00 96 /min [facility] Body temperature 2023-11-24 03:37:00 36.83 Beatriz [facility] Body height 2023-11-24 01:09:00 142.2 cm [facility] Body weight 2023-11-24 01:09:00 63.504 kg [facility] BMI 2023-11-24 01:09:00 31.39 kg/m2 [facility] Systolic blood pressure 2023-11-17 16:41:00 121 mm[Hg] [facility] Diastolic blood pressure 2023-11-17 16:41:00 81 mm[Hg] [facility] Heart rate 2023-11-17 16:41:00 92 /min [facility] Respiratory rate 2023-11-17 16:41:00 18 /min [facility] Body height 2023-11-17 16:41:00 142.2 cm [facility] Body weight 2023-11-17 16:41:00 65.137 kg [facility] BMI 2023-11-17 16:41:00 32.19 kg/m2 [facility] Oxygen saturation in Arterial blood by Pulse oximetry 2023-11-17 16:41:00 96 /min [facility] Systolic blood pressure 2023-11-03 15:48:00 129 mm[Hg] [facility] Diastolic blood pressure 2023-11-03 15:48:00 72 mm[Hg] [facility] Heart rate 2023-11-03 15:48:00 92 /min [facility] Respiratory rate 2023-11-03 15:48:00 20 /min [facility] Body height 2023-11-03 15:48:00 142.2 cm [facility] Body weight 2023-11-03 15:48:00 65.046 kg [facility] BMI 2023-11-03 15:48:00 32.15 kg/m2 [facility] Oxygen saturation in Arterial blood by Pulse oximetry 2023-11-03 15:48:00 97 /min [facility] Systolic blood pressure 2023-10-02 15:22:00 132 mm[Hg] [facility] Diastolic blood pressure 2023-10-02 15:22:00 75 mm[Hg] [facility] Heart rate 2023-10-02 15:22:00 89 /min [facility] Body temperature 2023-10-02 15:22:00 37 Beatriz [facility] Body height 2023-10-02 15:22:00 142.2 cm [facility] Body weight 2023-10-02 15:22:00 65.862 kg [facility] BMI 2023-10-02 15:22:00 32.55 kg/m2 [facility] Systolic blood pressure 2023-09-23 18:00:00 137 mm[Hg] [facility] Diastolic blood pressure 2023-09-23 18:00:00 80 mm[Hg] [facility] Heart rate 2023-09-23 18:00:00 81 /min [facility] Respiratory rate 2023-09-23 18:00:00 18 /min [facility] Oxygen saturation in Arterial blood by Pulse oximetry 2023-09-23 18:00:00 97 /min [facility] Body temperature 2023-09-23 14:50:00 37.33 Beatriz [facility] Body height 2023-09-23 14:50:00 142.2 cm [facility] Body weight 2023-09-23 14:50:00 65.772 kg [facility] BMI 2023-09-23 14:50:00 32.51 kg/m2 [facility] Systolic blood pressure 2023-09-23 14:21:00 142 mm[Hg] [facility] Diastolic blood pressure 2023-09-23 14:21:00 92 mm[Hg] [facility] Heart rate 2023-09-23 14:20:00 104 /min [facility] Body temperature 2023-09-23 14:20:00 36.67 Beatriz [facility] Respiratory rate 2023-09-23 14:20:00 16 /min [facility] Body height 2023-09-23 14:20:00 142.2 cm [facility] Body weight 2023-09-23 14:20:00 64.411 kg [facility] BMI 2023-09-23 14:20:00 31.84 kg/m2 [facility] Oxygen saturation in Arterial blood by Pulse oximetry 2023-09-23 14:20:00 97 /min [facility] Systolic blood pressure 2023-09-07 14:33:00 123 mm[Hg] [facility] Diastolic blood pressure 2023-09-07 14:33:00 79 mm[Hg] [facility] Heart rate 2023-09-07 14:33:00 78 /min [facility] Body temperature 2023-09-07 14:33:00 36.39 Beatriz [facility] Body height 2023-09-07 14:33:00 142.2 cm [facility] Body weight 2023-09-07 14:33:00 65.772 kg [facility] BMI 2023-09-07 14:33:00 32.51 kg/m2 [facility] Oxygen saturation in Arterial blood by Pulse oximetry 2023-09-07 14:33:00 96 /min [facility] Systolic blood pressure 2023-08-03 16:47:00 112 mm[Hg] [facility] Diastolic blood pressure 2023-08-03 16:47:00 75 mm[Hg] [facility] Heart rate 2023-08-03 16:47:00 92 /min [facility] Oxygen saturation in Arterial blood by Pulse oximetry 2023-08-03 16:47:00 96 /min [facility] Respiratory rate 2023-08-03 16:43:00 19 /min [facility] Body weight 2023-08-03 16:43:00 64.411 kg [facility] BMI 2023-08-03 16:43:00 31.84 kg/m2 [facility] Systolic blood pressure 2023-06-25 14:47:00 122 mm[Hg] [facility] Diastolic blood pressure 2023-06-25 14:47:00 81 mm[Hg] [facility] Heart rate 2023-06-25 14:47:00 83 /min [facility] Oxygen saturation in Arterial blood by Pulse oximetry 2023-06-25 14:47:00 99 /min [facility] Body temperature 2023-06-25 14:46:00 36.5 Beatriz [facility] Body height 2023-06-25 14:46:00 142.2 cm [facility] Body weight 2023-06-25 14:46:00 64.864 kg [facility] BMI 2023-06-25 14:46:00 32.06 kg/m2 [facility] Systolic blood pressure 2023-06-08 14:08:00 114 mm[Hg] [facility] Diastolic blood pressure 2023-06-08 14:08:00 77 mm[Hg] [facility] Heart rate 2023-06-08 14:08:00 81 /min [facility] Body temperature 2023-06-08 14:08:00 36.44 Beatriz [facility] Respiratory rate 2023-06-08 14:08:00 18 /min [facility] Body height 2023-06-08 14:08:00 142.2 cm [facility] Body weight 2023-06-08 14:08:00 62.687 kg [facility] BMI 2023-06-08 14:08:00 30.98 kg/m2 [facility] Oxygen saturation in Arterial blood by Pulse oximetry 2023-06-08 14:08:00 97 /min [facility] Systolic blood pressure 2023-04-22 17:02:00 128 mm[Hg] [facility] Diastolic blood pressure 2023-04-22 17:02:00 84 mm[Hg] [facility] Heart rate 2023-04-22 17:02:00 74 /min [facility] Body temperature 2023-04-22 17:02:00 36 Beatriz [facility] Body height 2023-04-22 17:02:00 142.2 cm [facility] Body weight 2023-04-22 17:02:00 62.143 kg [facility] BMI 2023-04-22 17:02:00 30.71 kg/m2 [facility] Oxygen saturation in Arterial blood by Pulse oximetry 2023-04-22 17:02:00 97 /min [facility] Systolic blood pressure 2023-04-06 16:59:00 127 mm[Hg] [facility] Diastolic blood pressure 2023-04-06 16:59:00 83 mm[Hg] [facility] Heart rate 2023-04-06 16:59:00 103 /min [facility] Body weight 2023-04-06 16:59:00 61.644 kg [facility] BMI 2023-04-06 16:59:00 30.47 kg/m2 [facility] Oxygen saturation in Arterial blood by Pulse oximetry 2023-04-06 16:59:00 97 /min [facility] Systolic blood pressure 2023-03-28 21:43:00 108 mm[Hg] [facility] Diastolic blood pressure 2023-03-28 21:43:00 52 mm[Hg] [facility] Heart rate 2023-03-28 21:43:00 99 /min [facility] Body temperature 2023-03-28 21:43:00 37.44 Beatriz [facility] Respiratory rate 2023-03-28 21:43:00 18 /min [facility] Oxygen saturation in Arterial blood by Pulse oximetry 2023-03-28 21:43:00 93 /min [facility] Body height 2023-03-27 12:35:00 142.2 cm [facility] Body weight 2023-03-27 12:35:00 61.236 kg [facility] BMI 2023-03-27 12:35:00 30.27 kg/m2 [facility] Systolic blood pressure 2023-03-27 12:35:00 134 mm[Hg] [facility] Diastolic blood pressure 2023-03-27 12:35:00 81 mm[Hg] [facility] Respiratory rate 2023-03-27 12:35:00 16 /min [facility] Body height 2023-03-27 12:35:00 142.2 cm [facility] Body weight 2023-03-27 12:35:00 61.236 kg [facility] BMI 2023-03-27 12:35:00 30.27 kg/m2 [facility] Oxygen saturation in Arterial blood by Pulse oximetry 2023-03-27 12:35:00 98 /min [facility] Body temperature 2023-03-27 12:33:00 36.5 Beatriz [facility] Systolic blood pressure 2023-03-03 16:27:00 126 mm[Hg] [facility] Diastolic blood pressure 2023-03-03 16:27:00 81 mm[Hg] [facility] Heart rate 2023-03-03 16:27:00 91 /min [facility] Body height 2023-03-03 16:27:00 142.2 cm [facility] Body weight 2023-03-03 16:27:00 61.326 kg [facility] BMI 2023-03-03 16:27:00 30.31 kg/m2 [facility] Systolic blood pressure 2023-02-25 16:52:00 128 mm[Hg] [facility] Diastolic blood pressure 2023-02-25 16:52:00 88 mm[Hg] [facility] Heart rate 2023-02-25 16:52:00 96 /min [facility] Respiratory rate 2023-02-25 16:52:00 16 /min [facility] Body weight 2023-02-25 16:52:00 60.737 kg [facility] BMI 2023-02-25 16:52:00 30.02 kg/m2 [facility] Oxygen saturation in Arterial blood by Pulse oximetry 2023-02-25 16:52:00 97 /min [facility] Systolic blood pressure 2023-01-07 13:41:00 118 mm[Hg] [facility] Diastolic blood pressure 2023-01-07 13:41:00 75 mm[Hg] [facility] Heart rate 2023-01-07 13:41:00 92 /min [facility] Body temperature 2023-01-07 13:41:00 36.83 Beatriz [facility] Respiratory rate 2023-01-07 13:41:00 18 /min [facility] Body height 2023-01-07 13:41:00 142.2 cm [facility] Body weight 2023-01-07 13:41:00 62.687 kg [facility] BMI 2023-01-07 13:41:00 30.98 kg/m2 [facility] Oxygen saturation in Arterial blood by Pulse oximetry 2023-01-07 13:41:00 98 /min [facility] Systolic blood pressure 2023-01-07 13:33:00 118 mm[Hg] [facility] Diastolic blood pressure 2023-01-07 13:33:00 75 mm[Hg] [facility] Heart rate 2023-01-07 13:33:00 92 /min [facility] Body temperature 2023-01-07 13:33:00 36.83 Beatriz [facility] Respiratory rate 2023-01-07 13:33:00 18 /min [facility] Body height 2023-01-07 13:33:00 142.2 cm [facility] 2023-01-07 13:33:00 62.687 kg [facility] BMI 2023-01-07 13:33:00 30.98 [facility] in Arterial blood by Pulse oximetry 2023-01-07 13:33:00 98 /min [facility] Systolic blood pressure 2022-12-23 16:03:00 117 mm[Hg] [facility] Diastolic blood pressure 2022-12-23 16:03:00 81 mm[Hg] [facility] Heart rate 2022-12-23 16:03:00 104 /min [facility] Body height 2022-12-23 16:03:00 142.2 cm [facility] Body weight 2022-12-23 16:03:00 62.188 kg [facility] BMI 2022-12-23 16:03:00 30.74 [facility]2 [facility] Oxygen [facility] in Arterial blood by Pulse oximetry 2022-12-23 16:03:00 96 /min [facility] Systolic blood pressure 2022-09-23 18:17:00 131 mm[Hg] [facility] Diastolic blood pressure 2022-09-23 18:17:00 78 mm[Hg] [facility] Heart rate 2022-09-23 18:17:00 105 /min [facility] Body height 2022-09-23 18:17:00 142.2 cm [facility] Body weight 2022-09-23 18:17:00 67.858 kg [facility] BMI 2022-09-23 18:17:00 33.54 kg/m2 [facility] Oxygen saturation in Arterial blood by Pulse oximetry 2022-09-23 18:17:00 97 /min [facility] Systolic blood pressure 2022-09-10 15:14:00 131 mm[Hg] [facility] Diastolic blood pressure 2022-09-10 15:14:00 78 mm[Hg] [facility] Heart rate 2022-09-10 15:08:00 99 /min [facility] Respiratory rate 2022-09-10 15:08:00 18 /min [facility] Body height 2022-09-10 15:08:00 142.2 cm [facility] Body weight 2022-09-10 15:08:00 67.949 kg [facility] BMI 2022-09-10 15:08:00 33.58 kg/m2 [facility] Oxygen saturation in Arterial blood by Pulse oximetry 2022-09-10 15:08:00 96 /min [facility] Systolic blood pressure 2022-09-01 15:04:00 156 mm[Hg] [facility] Diastolic blood pressure 2022-09-01 15:04:00 75 mm[Hg] [facility] Heart rate 2022-09-01 15:04:00 100 /min [facility] Body temperature 2022-09-01 15:04:00 36 Beatriz [facility] Body height 2022-09-01 15:04:00 142.2 cm [facility] Body weight 2022-09-01 15:04:00 68.04 kg [facility] BMI 2022-09-01 15:04:00 33.63 kg/m2 [facility] Oxygen saturation in Arterial blood by Pulse oximetry 2022-09-01 15:04:00 98 /min [facility] Systolic blood pressure 2022-08-21 15:33:00 130 mm[Hg] [facility] Diastolic blood pressure 2022-08-21 15:33:00 87 mm[Hg] [facility] Heart rate 2022-08-21 15:33:00 103 /min [facility] Respiratory rate 2022-08-21 15:33:00 19 /min [facility] Body height 2022-08-21 15:33:00 142.2 cm [facility] Body weight 2022-08-21 15:33:00 67.722 kg [facility] BMI 2022-08-21 15:33:00 33.47 kg/m2 [facility] Oxygen saturation in Arterial blood by Pulse oximetry 2022-08-21 15:33:00 99 /min [facility] Systolic blood pressure 2022-08-11 20:28:00 104 mm[Hg] [facility] Diastolic blood pressure 2022-08-11 20:28:00 73 mm[Hg] [facility] Heart rate 2022-08-11 20:28:00 97 /min [facility] Body temperature 2022-08-11 20:28:00 36.39 Beatriz [facility] Respiratory rate 2022-08-11 20:28:00 18 /min [facility] Oxygen saturation in Arterial blood by Pulse oximetry 2022-08-11 20:28:00 94 /min [facility] Body height 2022-08-08 10:09:00 142.2 cm [facility] Body weight 2022-08-08 10:09:00 68.04 kg [facility] BMI 2022-08-08 10:09:00 33.63 kg/m2 [facility] Systolic blood pressure 2022-07-15 14:05:00 130 mm[Hg] [facility] Diastolic blood pressure 2022-07-15 14:05:00 75 mm[Hg] [facility] Heart rate 2022-07-15 14:05:00 102 /min [facility] Body temperature 2022-07-15 14:05:00 36.28 Beatriz [facility] Body height 2022-07-15 14:05:00 142.2 cm [facility] Body weight 2022-07-15 14:05:00 69.128 kg [facility] BMI 2022-07-15 14:05:00 34.17 kg/m2 [facility] Oxygen saturation in Arterial blood by Pulse oximetry 2022-07-15 14:05:00 98 /min [facility] Systolic blood pressure 2022-06-10 16:37:00 135 mm[Hg] [facility] Diastolic blood pressure 2022-06-10 16:37:00 85 mm[Hg] [facility] Heart rate 2022-06-10 16:36:00 105 /min [facility] Body temperature 2022-06-10 16:36:00 36.61 Beatriz [facility] Respiratory rate 2022-06-10 16:36:00 18 /min [facility] Body height 2022-06-10 16:36:00 142.2 cm [facility] Body weight 2022-06-10 16:36:00 68.448 kg [facility] BMI 2022-06-10 16:36:00 33.83 [facility]2 [facility] in Arterial blood by Pulse oximetry 2022-06-10 16:36:00 98 /min [facility] Systolic blood pressure 2022-05-09 16:30:00 121 mm[Hg] [facility] Diastolic blood pressure 2022-05-09 16:30:00 85 mm[Hg] [facility] Heart rate 2022-05-09 16:30:00 93 /min [facility] 2022-05-09 16:30:00 17 /min [facility] Body height 2022-05-09 16:30:00 142.2 cm [facility] Body weight 2022-05-09 16:30:00 68.72 kg [facility] BMI 2022-05-09 16:30:00 33.97 kg/m2 [facility] Oxygen saturation in Arterial blood by Pulse oximetry 2022-05-09 16:30:00 94 /min [facility] Systolic blood pressure 2022-04-22 16:30:00 143 mm[Hg] [facility] Diastolic blood pressure 2022-04-22 16:30:00 85 mm[Hg] [facility] Heart rate 2022-04-22 16:30:00 96 /min [facility] Body temperature 2022-04-22 16:30:00 36.67 Beatriz [facility] Respiratory rate 2022-04-22 16:30:00 18 /min [facility] Body height 2022-04-22 16:30:00 144.8 cm [facility] Body weight 2022-04-22 16:30:00 68.765 kg [facility] BMI 2022-04-22 16:30:00 32.81 kg/m2 [facility] Oxygen saturation in Arterial blood by Pulse oximetry 2022-04-22 16:30:00 96 /min [facility] Systolic blood pressure 2022-04-11 14:25:00 111 mm[Hg] [facility] Diastolic blood pressure 2022-04-11 14:25:00 71 mm[Hg] [facility] Heart rate 2022-04-11 14:25:00 92 /min [facility] Body temperature 2022-04-11 14:25:00 36.83 Beatriz [facility] Respiratory rate 2022-04-11 14:25:00 18 /min [facility] Body height 2022-04-11 14:25:00 142.2 cm [facility] Body weight 2022-04-11 14:25:00 68.947 kg [facility] BMI 2022-04-11 14:25:00 34.08 kg/m2 [facility] Systolic blood pressure 2022-04-08 19:05:00 129 mm[Hg] [facility] Diastolic blood pressure 2022-04-08 19:05:00 80 mm[Hg] [facility] Heart rate 2022-04-08 19:05:00 88 /min [facility] Body temperature 2022-04-08 19:05:00 36.33 Beatriz [facility] Respiratory rate 2022-04-08 19:05:00 18 /min [facility] Body height 2022-04-08 19:05:00 142.2 cm [facility] Body weight 2022-04-08 19:05:00 67.677 kg [facility] BMI 2022-04-08 19:05:00 33.45 [facility]/m2 [facility] Oxygen saturation in Arterial blood by Pulse oximetry 2022-04-08 19:05:00 97 /min [facility] Systolic blood pressure 2022-03-28 15:29:00 138 mm[Hg] [facility] Diastolic blood pressure 2022-03-28 15:29:00 81 mm[Hg] [facility] Heart rate 2022-03-28 15:29:00 86 /min [facility] Respiratory rate 2022-03-28 15:29:00 17 /min [facility] Body height 2022-03-28 15:29:00 142.2 cm [facility] Body weight 2022-03-28 15:29:00 69.57 kg [facility] BMI 2022-03-28 15:29:00 34.39 kg/m2 [facility] Oxygen saturation in Arterial blood by Pulse oximetry 2022-03-28 15:29:00 93 /min [facility] Systolic blood pressure 2022-03-24 18:08:00 142 mm[Hg] [facility] Diastolic blood pressure 2022-03-24 18:08:00 94 mm[Hg] [facility] Heart rate 2022-03-24 18:08:00 84 /min [facility] Body temperature 2022-03-24 18:08:00 37.5 Beatriz [facility] Respiratory rate 2022-03-24 18:08:00 20 /min [facility] Body height 2022-03-24 18:08:00 142.2 cm [facility] Body weight 2022-03-24 18:08:00 65.772 kg [facility] BMI 2022-03-24 18:08:00 32.51 kg/m2 [facility] Oxygen saturation in Arterial blood by Pulse oximetry 2022-03-24 18:08:00 100 /min [facility] Systolic blood pressure 2022-02-18 19:16:00 139 mm[Hg] [facility] Diastolic blood pressure 2022-02-18 19:16:00 80 mm[Hg] [facility] Heart rate 2022-02-18 19:16:00 102 /min [facility] Body height 2022-02-18 19:16:00 152.4 cm [facility] Body weight 2022-02-18 19:16:00 69.355 kg [facility] BMI 2022-02-18 19:16:00 29.86 kg/m2 [facility] Oxygen saturation in Arterial blood by Pulse oximetry 2022-02-18 19:16:00 97 /min [facility] Systolic blood pressure 2022-02-03 16:49:00 134 mm[Hg] [facility] Diastolic blood pressure 2022-02-03 16:49:00 88 mm[Hg] [facility] Heart rate 2022-02-03 16:49:00 89 /min [facility] Body temperature 2022-02-03 16:49:00 36.78 Beatriz [facility] Respiratory rate 2022-02-03 16:49:00 17 /min [facility] Body height 2022-02-03 16:49:00 142.2 cm [facility] Body weight 2022-02-03 16:49:00 67.994 kg [facility] BMI 2022-02-03 16:49:00 33.61 kg/m2 [facility] Oxygen saturation in Arterial blood by Pulse oximetry 2022-02-03 16:49:00 98 /min [facility] Systolic blood pressure 2021-12-24 15:21:00 116 mm[Hg] [facility] Diastolic blood pressure 2021-12-24 15:21:00 62 mm[Hg] [facility] Heart rate 2021-12-24 15:21:00 90 /min [facility] Body temperature 2021-12-24 15:21:00 35.89 Beatriz [facility] Respiratory rate 2021-12-24 15:21:00 18 /min [facility] Body height 2021-12-24 15:21:00 142.2 cm [facility] Body weight 2021-12-24 15:21:00 68.357 kg [facility] BMI 2021-12-24 15:21:00 33.79 kg/m2 [facility] Oxygen saturation in Arterial blood by Pulse oximetry 2021-12-24 15:21:00 98 /min [facility] Systolic blood pressure 2021-12-05 14:59:00 104 mm[Hg] [facility] Diastolic blood pressure 2021-12-05 14:59:00 72 mm[Hg] [facility] Heart rate 2021-12-05 14:59:00 94 /min [facility] Oxygen saturation in Arterial blood by Pulse oximetry 2021-12-05 14:59:00 97 /min [facility] Body temperature 2021-12-05 14:52:00 36.61 Beatriz [facility] Body height 2021-12-05 14:52:00 142.2 cm [facility] Body weight 2021-12-05 14:52:00 68.629 kg [facility] BMI 2021-12-05 14:52:00 33.92 kg/m2 [facility] Systolic blood pressure 2024-05-03 15:31:00 122 mm[Hg] [facility] Diastolic blood pressure 2024-05-03 15:31:00 82 mm[Hg] [facility] Heart rate 2024-05-03 15:31:00 84 /min [facility] Body height 2024-05-03 15:31:00 142.2 cm [facility] Body weight 2024-05-03 15:31:00 62.097 kg [facility] BMI 2024-05-03 15:31:00 30.69 kg/m2 [facility] Oxygen saturation in Arterial blood by Pulse oximetry 2024-05-03 15:31:00 99 /min [facility] Respiratory rate 2024-04-12 16:56:00 18 /min [facility] Body temperature 2024-03-11 13:47:00 36.33 Beatriz [facility] Respitory Rate 2020-02-16 03:22:00 [facility] Systolic (mm Hg) 2020-02-16 03:22:00 [facility] Diastolic (mm Hg) 2020-02-16 03:22:00 [facility] Temperature Oral (F) 2020-02-16 03:22:00 98.3 F [facility] Respitory Rate 2020-02-16 03:00:00 [facility] Systolic (mm Hg) 2020-02-16 03:00:00 [facility] Diastolic (mm Hg) 2020-02-16 03:00:00 [facility] Respitory Rate 2020-02-16 02:15:00 [facility] Systolic (mm Hg) 2020-02-16 02:15:00 [facility] Diastolic (mm Hg) 2020-02-16 02:15:00 [facility] Height 2020-02-15 22:04:00 162.56 cm [facility] BMI Calculated 2020-02-15 22:04:00 [facility] Weight 2020-02-15 22:04:00 [facility] Heart Rate 2020-02-15 22:04:00 [facility] Temperature Oral (F) 2020-02-15 22:04:00 98.1 F [facility] Procedures Procedure Date / Time Performed Performing Clinician Source POC GLUCOSE UNSOLICITED RESULTS 2024-07-11 11:51:00 [facility] POC GLUCOSE UNSOLICITED RESULTS 2024-07-11 07:50:00 Monica Degroot [facility] TACROLIMUS LEVEL 2024-07-11 06:10:00 Alena Judd [facility] Epic EXTRA BLUE TOP 2024-07-11 06:10:00 Monica Degroot [facility] EXTRA TUBES 2024-07-11 06:10:00 Monica Degroot [facility] COMPLETE BLOOD COUNT 2024-07-11 06:10:00 Saul Judd [facility] AUTOMATED DIFFERENTIAL 2024-07-11 06:10:00 Wanzbigniew Saul Schultz [facility] BASIC METABOLIC PANEL 2024-07-11 06:10:00 Wanzbigniew Saul Schultz [facility] HEPATIC FUNCTION PANEL 2024-07-11 06:10:00 Mikayla, A nju [facility] MAGNESIUM LEVEL 2024-07-11 06:10:00 Binta, [facility] PHOSPHORUS LEVEL 2024-07-11 06:10:00 Wanna, Alena benigno [facility] COMPLETE BLOOD COUNT W/DIFF AND PLATELET 2024-07-11 06:10:00 Wanna Saul [facility] POC GLUCOSE UNSOLICITED RESULTS 2024-07-10 17:44:00 Mikayla, Monica [facility] Epic POC GLUCOSE UNSOLICITED RESULTS 2024-07-10 15:33:00 Mikayla, [facility] POC GLUCOSE UNSOLICITED RESULTS 2024-07-10 12:51:00 Mikayla, [facility] POC GLUCOSE UNSOLICITED RESULTS 2024-07-10 08:03:00 Mikayla, [facility] TACROLIMUS LEVEL 2024-07-10 05:14:00 WanAlena coy benigno Schultz [facility] COMPLETE BLOOD COUNT 2024-07-10 05:14:00 Binta aSul Schultz [facility] AUTOMATED DIFFERENTIAL 2024-07-10 05:14:00 Wanzbigniew Saul Schultz [facility] BASIC METABOLIC PANEL 2024-07-10 05:14:00 Wanzbigniew Saul Schultz [facility] HEPATIC FUNCTION PANEL 2024-07-10 05:14:00 Mikayla, A vau [facility] Epic MAGNESIUM LEVEL 2024-07-10 05:14:00 Wanna, [facility]itha [facility] PHOSPHORUS LEVEL 2024-07-10 05:14:00 Wanzbigniew, Alena benigno [facility] COMPLETE BLOOD COUNT W/DIFF AND PLATELET 2024-07-10 05:14:00 Wanzbigniew Saul [facility]ultz [facility] POC GLUCOSE UNSOLICITED RESULTS 2024-07-09 23:04:00 Mikayla, Monica [facility] Epic POC GLUCOSE UNSOLICITED RESULTS 2024-07-09 17:20:00 Mikayla, Monica [facility] Epic POC GLUCOSE UNSOLICITED RESULTS 2024-07-09 15:37:00 Mikayla, [facility] POC GLUCOSE UNSOLICITED RESULTS 2024-07-09 11:39:00 Mikayla [facility] TRANSTHORACIC ECHO (TTE) LIMITED W/ DOPPLER, COLOR AND CONTRAST 2024-07-09 10:45:00 Mikayla [facility] POC GLUCOSE UNSOLICITED RESULTS 2024-07-09 08:14:00 Mikayla Monica [facility] TACROLIMUS LEVEL 2024-07-09 05:43:00 WannaAlena [facility] COMPLETE BLOOD COUNT 2024-07-09 05:43:00 WannaSaul [facility] AUTOMATED DIFFERENTIAL 2024-07-09 05:43:00 Saul Judd [facility] BASIC METABOLIC PANEL 2024-07-09 05:43:00 WannaSaul [facility] HEPATIC FUNCTION PANEL 2024-07-09 05:43:00 [facility] 2024-07-09 05:43:00 WanTabitha coy [facility] [facility] PHOSPHORUS LEVEL 2024-07-09 05:43:00 WanAlena coy [facility] COMPLETE BLOOD COUNT W/DIFF AND PLATELET 2024-07-09 05:43:00 Saul Judd [facility] POC GLUCOSE UNSOLICITED RESULTS 2024-07-08 23:15:00 [facility]SE UNSOLICITED RESULTS 2024-07-08 17:48:00 Mikayla Monica [facility] US UPPER EXTREMITY ARTERIAL DOPPLER BILATERAL 2024-07-08 15:20:00 Saul Judd [facility] US ANKLE BRACHIAL INDEX (ROSALIO) WITHOUT EXCERCISE 2024-07-08 15:00:00 Saul Judd [facility] POC GLUCOSE UNSOLICITED RESULTS 2024-07-08 11:49:00 Mikayla [facility] POC GLUCOSE UNSOLICITED RESULTS 2024-07-08 07:57:00 Mikayla [facility] TACROLIMUS LEVEL 2024-07-08 05:39:00 WanAlena coy [facility] COMPLETE BLOOD COUNT 2024-07-08 05:39:00 Binta Saul Schultz [facility] AUTOMATED DIFFERENTIAL 2024-07-08 05:39:00 Saul Judd Teresita [facility] BASIC METABOLIC PANEL 2024-07-08 05:39:00 Binta Saul Schultz [facility] HEPATIC FUNCTION PANEL 2024-07-08 05:39:00 Wiliam Degroot [facility] MAGNESIUM LEVEL 2024-07-08 05:39:00 Tabitha Judd andria Schultz [facility] PHOSPHORUS LEVEL 2024-07-08 05:39:00 Alena Judd benigno [facility] COMPLETE BLOOD COUNT W/DIFF AND PLATELET 2024-07-08 05:39:00 Binta Saul Schultz [facility] ECG 12-LEAD 2024-07-08 02:12:26 Rai Zambrano [facility] POC GLUCOSE UNSOLICITED RESULTS 2024-07-08 00:58:00 Monica Degroot [facility] POC GLUCOSE UNSOLICITED RESULTS 2024-07-08 00:29:00 Monica Degroot [facility] POC GLUCOSE UNSOLICITED RESULTS 2024-07-07 17:25:00 Monica Degroot [facility] US KIDNEY TRANSPLANT 2024-07-07 14:22:29 Maegan Degroot u [facility] POC GLUCOSE UNSOLICITED RESULTS 2024-07-07 12:07:00 Monica Degroot [facility] BASIC METABOLIC PANEL 2024-07-07 09:54:00 Binta Saul Schultz [facility] LIPID PANEL W/CALCULATED LDL 2024-07-07 09:54:00 Binta Saul Schultz [facility] MAGNESIUM LEVEL 2024-07-07 09:54:00 Tabitha Judd andria Schultz [facility] PHOSPHORUS LEVEL 2024-07-07 09:54:00 Alena Judd [facility] POC GLUCOSE UNSOLICITED RESULTS 2024-07-07 09:04:00 Monica Degroot [facility] POC GLUCOSE UNSOLICITED RESULTS 2024-07-07 07:39:00 Monica Degroot [facility] COMPLETE BLOOD COUNT 2024-07-07 05:00:00 Saul Judd Teresita [facility] AUTOMATED DIFFERENTIAL 2024-07-07 05:00:00 Saul Judd [facility] COMPLETE BLOOD COUNT W/DIFF AND PLATELET 2024-07-07 05:00:00 Saul Judd Teresita [facility] HEPATITIS C VIRUS RNA BY PCR QUANTITATIVE 2024-07-07 05:00:00 Saul Judd [facility] TACROLIMUS LEVEL 2024-07-07 05:00:00 Alena Judd [facility] POC GLUCOSE UNSOLICITED RESULTS 2024-07-06 20:43:00 Rivera Metzger [facility] POC GLUCOSE UNSOLICITED RESULTS 2024-07-06 16:42:00 Rivera Metzger [facility] TRANSPLANT RESPIRATORY VIRAL PANEL [facility] 2024-07-06 13:17:00 Saul Judd [facility] POC GLUCOSE UNSOLICITED RESULTS 2024-07-06 11:31:00 Rivera Metzger [facility] XR CHEST 1 VIEW 2024-07-06 10:40:00 Michael Albright [facility] POC GLUCOSE UNSOLICITED RESULTS 2024-07-06 07:24:00 Rivera Metzger [facility] THYROID STIMULATING HORMONE W/ REFLEX FREE T4 2024-07-06 00:09:00 Saul Judd [facility] COMPLETE BLOOD COUNT 2024-07-06 00:09:00 Saul Judd [facility] AUTOMATED DIFFERENTIAL 2024-07-06 00:09:00 Saul Judd [facility] BASIC METABOLIC PANEL 2024-07-06 00:09:00 Saul Judd [facility] FERRITIN 2024-07-06 00:09:00 Tabitha Judd [facility] HEMOGLOBIN A1C 2024-07-06 00:09:00 Tabitha Judd [facility] MAGNESIUM LEVEL 2024-07-06 00:09:00 Tabitha Judd [facility] PHOSPHORUS LEVEL 2024-07-06 00:09:00 Alena Judd [facility] T4 FREE 2024-07-06 00:09:00 Tabitha Judd [facility] COMPLETE BLOOD COUNT W/DIFF AND PLATELET 2024-07-06 00:09:00 Saul Judd [facility] PROTIME-INR 2024-07-06 00:09:00 Tabitha Judd [facility] IRON LEVEL AND TIBC 2024-07-06 00:09:00 Liseth Judd [facility] TACROLIMUS LEVEL 2024-07-06 00:09:00 Jesica Nye [facility] ECG 12-LEAD 2024-07-05 19:30:00 Rai Zambrano [facility] CT ABDOMEN PELVIS WO IV CONTRAST 2024-07-05 16:07:04 Saul Judd [facility] US SOFT TISSUE EXTREMITY LIMITED 2024-07-05 16:00:34 Saul Judd [facility] POC GLUCOSE UNSOLICITED RESULTS 2024-07-05 15:47:00 Rivera Metzger [facility] COMPLETE BLOOD COUNT 2024-07-05 15:46:00 Saul Judd [facility] AUTOMATED DIFFERENTIAL 2024-07-05 15:46:00 Saul Judd [facility] COMPLETE BLOOD COUNT W/DIFF AND PLATELET 2024-07-05 15:46:00 Saul Judd [facility] TRANSTHORACIC ECHO (TTE) COMPLETE W/ CONTRAST 2024-07-05 14:43:00 [facility] WOUND OSTOMY EVAL AND TREAT 2024-07-05 14:19:27 Saul Judd [facility] POC GLUCOSE UNSOLICITED RESULTS 2024-07-05 11:59:00 Rivera Metzger [facility] US LOWER EXTREMITY ARTERIAL DOPPLER BILATERAL 2024-07-05 10:25:00 Saul Judd [facility] POC ACTIVATED CLOTTING TIME UNSOLICITED RESULTS 2024-07-05 09:15:00 Rivera Metzger [facility] B-TYPE NATRIURETIC PEPTIDE 2024-07-05 08:51:00 A Jeffery Olivarezafwiliam Diego [facility] TROPONIN I HIGH SENSITIVITY CARESET (1ST HR) 2024-07-05 08:51:00 Al Tino Jarrell Dheyauldaidee [facility] TROPONIN I HIGH SENSITIVITY CARESET 2024-07-05 07:42:00 Al Qaysi, Jarrell Dheyauldeen [facility] TROPONIN I HIGH SENSITIVITY CARESET (BASELINE) 2024-07-05 07:42:00 Al Qaysi, Jarrell Dheyauldeen [facility] COMPLETE BLOOD COUNT 2024-07-05 07:42:00 Al Qays i, Jarrell Dheyauldeen [facility] AUTOMATED DIFFERENTIAL 2024-07-05 07:42:00 Al Qa ysi, Jarrell Dheyauldeen [facility] COMPREHENSIVE METABOLIC PANEL 2024-07-05 07:42:00 Al [facility] 2024-07-05 07:42:00 Al Qaysi, Mu [facility]afa [facility] COMPLETE BLOOD COUNT W/DIFF AND PLATELET 2024-07-05 07:42:00 [facility] 2024-07-05 07:42:00 Al Qaysi, Mu [facility]afa [facility] 12-LEAD 2024-07-05 07:35:00 Al Qaysi, Mu stafa [facility] LEFT HEART CATH 2024-07-05 06:53:01 Rivera [facility]ger [facility] CORONARY INTERVENTION 2024-07-05 06:53:01 Rivera Metzger [facility] POC ACTIVATED CLOTTING TIME UNSOLICITED RESULTS 2024-07-05 06:23:00 Rivera Metzger [facility] POC ACTIVATED CLOTTING TIME UNSOLICITED RESULTS 2024-07-05 06:02:00 Rivera Metzger [facility] Assess cath site pre-sheath removal 2024-07-05 00:00:00 [facility] CBC WITH DIFF 2024-05-03 15:15:00 Amena Bowman [facility] BASIC METABOLIC PANEL (NA, K, CL, CO2, GLUCOSE, BUN, CREATININE, CA) 2024-05-03 15:15:00 Amena Marte [facility] MAGNESIUM 2024-05-03 15:15:00 Amena Bowman [facility] PHOSPHORUS 2024-05-03 15:15:00 Amena Bowman [facility] URINALYSIS 2024-05-03 15:15:00 Amena Bowman [facility] PROTEIN CREAT RATIO URINE RANDOM 2024-05-03 15:15:00 Amena Marte [facility] TACROLIMUS, LEVEL 2024-05-03 15:15:00 Amena Solorzano [facility] DIABETES TESTING REPORTS 2024-04-27 15:58:54 Doc tor Unassigned, [place] [facility] POCT HEMOGLOBIN A1C TEST 2024-04-12 17:01:00 Oscar Griffin [facility] POCT HEMOGLOBIN A1C TEST 2024-04-12 17:01:00 Oscar Griffin [facility] CT HEAD WO CONTRAST 2024-02-13 17:00:52 Tiera Bernard [facility] CT HEAD WO CONTRAST 2024-02-13 17:00:52 Tiera Bernard [facility] FLU VACC ([id number]), 6 MO-64 YRS, .5ML, IM, TIV (FLUCELVAX) 2023-12-15 20:30:18 Justina Melendez [facility] MICROALBUMIN URINE 2023-11-26 19:00:00 [facility] 2023-11-24 03:28:00 Sherly Cherry [facility] XR CHEST 1 VW 2023-11-24 03:05:42 Mohit Cherry [facility] POCT GLUCOSE (AUTOMATED) 2023-11-24 02:58:00 Sherly Cherry [facility] ACUTE CARE VENOUS BLOOD GAS 2023-11-24 02:53:00 Mohit Cherry [facility] INFLUENZA A/B RSV COVID NAAT 2023-11-24 02:47:00 Mohit Cherry [facility] TROPONIN I 2023-11-24 01:57:00 Mohit Cherry [facility] COMP. METABOLIC PANEL ([id number]) 2023-11-24 01:57:00 Mohit Cherry [facility] CBC WITH DIFF 2023-11-24 01:57:00 [facility] 2023-11-24 01:57:00 Mohit Cherry [facility] POCT GLUCOSE (AUTOMATED) 2023-11-24 01:06:00 Sherly Cherry [facility] POCT HEMOGLOBIN A1C TEST 2023-11-17 16:53:00 Atul Doan [facility] BI ULTRASOUND BREAST COMPLETE RIGHT 2023-11-11 16:51:00 Adum, Denise Salinas [facility] BI DIAGNOSTIC TOMOSYNTHESIS BILATERAL 2023-11-11 15:25:46 Adum, Denise Salinas [facility] BI DIAGNOSTIC TOMOSYNTHESIS BILATERAL 2023-11-11 15:25:46 Adum, Denise Salinas [facility] HIGH RISK HPV-THIN PREP 2023-10-02 15:37:00 Adum, Liliane Salinas [facility] PAP SMEAR-LIQUID BASED-CP 2023-10-02 15:37:00 Adum, Georgie Salinas [facility] EKG-12 LEAD 2023-09-23 18:00:36 Constance Tellez [facility] POCT GLUCOSE (AUTOMATED) 2023-09-23 17:23:00 Constance Tellez [facility] MAGNESIUM 2023-09-23 15:52:00 Constance Tellez [facility] TROPONIN I 2023-09-23 15:52:00 Constance [facility]z [facility] COMP. METABOLIC PANEL ([id number]) 2023-09-23 15:52:00 Constance Tellez [facility] CBC WITH DIFF 2023-09-23 15:52:00 Constance Tellez [facility] N-TERMINAL PRO-BNP 2023-09-23 15:52:00 Constance Tellez Sonia [facility] XR CHEST 1 VW 2023-09-23 15:21:17 Constance Tellez [facility] URINALYSIS 2023-09-23 15:14:00 Constance [facility] PO[facility]YSIS 2023-09-23 14:21:00 Carmela Vo [facility] CT ABDOMEN PELVIS WO CONTRAST 2023-06-16 16:21:03 Nora [facility] FREE T4 2023-06-08 16:11:00 [facility] HORMONE 2023-06-08 16:11:00 Nora [facility] COMP. METABOLIC PANEL ([id number]) 2023-06-08 16:11:00 Nora [facility] LIPID PANEL ([id number])(TOTAL CHOLESTEROL, TRIGLYCERIDES, HDL) 2023-06-08 16:11:00 Nora [facility] GLYCOSYLATED HEMOGLOBIN (A1C) 2023-06-08 16:11:00 Nora [facility] FREE T3 2023-06-08 16:11:00 Justina Melendez Un [facility] LIPID PANEL ([id number])(TOTAL CHOLESTEROL, TRIGLYCERIDES, HDL) 2023-06-08 16:11:00 Nora [facility] CONSENT/REFUSAL FOR DIAGNOSIS AND TREATMENT 2023-06-08 13:50:37 Doctor Unassigned, [place] [facility] URINALYSIS 2023-04-22 17:01:00 Amena Bowman [facility] PROTEIN CREAT RATIO URINE RANDOM 2023-04-22 17:01:00 Amena Marte [facility] TOTAL PROTEIN, URINE RANDOM 2023-04-22 17:01:00 Amena Marte [facility] PROTEIN CREAT RATIO URINE RANDOM 2023-04-22 17:01:00 Amena Marte [facility] PHOSPHORUS 2023-04-22 16:47:00 Amena Bowman [facility] AMYLASE 2023-04-22 16:47:00 Amena Bowman [facility] LIPASE 2023-04-22 16:47:00 Amena Bowman [facility] MAGNESIUM 2023-04-22 16:47:00 Amena Bowman [facility] COMP. METABOLIC PANEL ([id number]) 2023-04-22 16:47:00 Griffin Guevara [facility] TACROLIMUS, LEVEL 2023-04-22 16:47:00 Amena Solorzano [facility] CBC WITH DIFF 2023-04-22 16:47:00 Amena Bowman [facility] GLYCOSYLATED HEMOGLOBIN (A1C) 2023-04-22 16:47:00 Amena Marte [facility] PROTHROMBIN TIME / INR 2023-04-22 16:47:00 Ashok Guevara [facility] ACTIVATED PARTIAL THRMPLAS FABIANA 2023-04-22 16:47:00 Griffin Guevara [facility] N-TERMINAL PRO-BNP 2023-04-22 16:47:00 Griffin Guevara [facility] C-PEPTIDE, SERUM OR PLASMA 2023-04-22 16:47:00 Amena Westbrook [facility] POCT GLUCOSE (AUTOMATED) 2023-03-28 23:32:00 Ra kem Vizcarra [facility] POCT GLUCOSE (AUTOMATED) 2023-03-28 23:32:00 Ra kem Vizcarra [facility] POCT GLUCOSE (AUTOMATED) 2023-03-28 21:46:00 Ra kem Vizcarra [facility] POCT GLUCOSE (AUTOMATED) 2023-03-28 21:46:00 Ra kem Vizcarra [facility] POCT GLUCOSE (AUTOMATED) 2023-03-28 17:52:00 Ra kem Vizcarra [facility] POCT GLUCOSE (AUTOMATED) 2023-03-28 17:52:00 Ra kem Vizcarra [facility] POCT GLUCOSE (AUTOMATED) 2023-03-28 13:58:00 Jose R Benítez [facility] POCT GLUCOSE (AUTOMATED) 2023-03-28 13:58:00 Jose R Benítez [facility] POCT GLUCOSE (AUTOMATED) 2023-03-28 03:34:00 Jose R Benítez [facility] POCT GLUCOSE (AUTOMATED) 2023-03-28 03:34:00 Jose R Benítez [facility] POCT GLUCOSE (AUTOMATED) 2023-03-27 22:46:00 Jose R Benítez [facility] POCT GLUCOSE (AUTOMATED) 2023-03-27 22:46:00 Jose R Benítez [facility] CARDIAC CATHETERIZATION 2023-03-27 22:06:14 Se Paola ndil [facility] CARDIAC CATHETERIZATION 2023-03-27 22:06:14 Se Paola ndil [facility] CARDIAC CATHETERIZATION 2023-03-27 22:06:14 Se Paola ndil [facility] CARDIAC CATHETERIZATION 2023-03-27 22:06:14 Guevara, Se ndil [facility] CARDIAC CATHETERIZATION 2023-03-27 22:06:14 Guevara, Se ndil [facility] CARDIAC CATHETERIZATION 2023-03-27 22:06:14 Guevara, Se ndil [facility] POCT GLUCOSE (AUTOMATED) 2023-03-27 16:32:00 Jose R Benítez [facility] POCT GLUCOSE (AUTOMATED) 2023-03-27 16:32:00 Jose R Benítez [facility] POCT GLUCOSE (AUTOMATED) 2023-03-27 14:26:00 Jose R Benítez [facility] POCT GLUCOSE (AUTOMATED) 2023-03-27 14:26:00 Jose R Benítez [facility] BASIC METABOLIC PANEL (NA, K, CL, CO2, GLUCOSE, BUN, CREATININE, CA) 2023-03-27 14:16:00 Rafi Benítez [facility] CBC WITH DIFF 2023-03-27 14:16:00 Rafi [facility]te[facility] PROTHROMBIN TIME / INR 2023-03-27 14:16:00 Lorena Benítez [facility] ACTIVATED PARTIAL THRMPLAS FABIANA 2023-03-27 14:16:00 Rafi Benítez [facility] BASIC METABOLIC PANEL (NA, K, CL, CO2, GLUCOSE, BUN, CREATININE, CA) 2023-03-27 14:16:00 Rafi Benítez [facility] CBC WITH DIFF 2023-03-27 14:16:00 Rafi Benítez [facility] PROTHROMBIN TIME / INR 2023-03-27 14:16:00 Lorena Benítez [facility] ACTIVATED PARTIAL THRMPLAS FABIANA 2023-03-27 14:16:00 Rafi Benítez [facility] HOSPITAL ADMISSION 2023-03-27 06:01:00 Doctor Un assigned, [place] [facility] POCT HEMOGLOBIN A1C TEST 2023-03-03 16:30:00 Atul Doan [facility] HB ECG ROUTINE & RHYTHM STRIP 2023-02-25 17:14:37 Griffin Guevara [facility] POCT HEMOGLOBIN A1C TEST 2022-12-23 16:06:00 Roopa Jimenez [facility] PATIENT FINANCIAL POLICY 2022-12-23 14:52:45 Doctor Unassigned, [place] [facility] PATIENT QUESTIONNAIRE 2022-12-23 05:01:00 Doctor Unassigned, [place] [facility] DME/SUPPLY JUSTIFICATION 2022-08-21 05:01:00 Doc tor Unassigned, [place] [facility] POCT GLUCOSE (AUTOMATED) 2022-08-11 21:41:00 Sy Sepulveda [facility] POCT GLUCOSE (AUTOMATED) 2022-08-11 17:01:00 Sy Sepulveda [facility] POCT GLUCOSE (AUTOMATED) 2022-08-11 13:18:00 Sy Sepulveda [facility] MAGNESIUM 2022-08-11 10:21:00 Antonette Quarles [facility] BASIC METABOLIC PANEL (NA, K, CL, CO2, GLUCOSE, BUN, CREATININE, CA) 2022-08-11 10:21:00 [facility] CBC WITH DIFF 2022-08-11 10:21:00 [facility] POCT GLUCOSE (AUTOMATED) 2022-08-11 00:58:00 Sy Sepulveda [facility] POCT GLUCOSE (AUTOMATED) 2022-08-10 21:36:00 Sy Sepulveda [facility] POCT GLUCOSE (AUTOMATED) 2022-08-10 17:10:00 Sy Sepulveda [facility] POCT GLUCOSE (AUTOMATED) 2022-08-10 13:18:00 Sy Sepulveda [facility] MAGNESIUM 2022-08-10 10:17:00 Dayday Cm [facility] BASIC METABOLIC PANEL (NA, K, CL, CO2, GLUCOSE, BUN, CREATININE, CA) 2022-08-10 10:17:00 Dayday Cm [facility] CBC WITH DIFF 2022-08-10 10:17:00 Dayday Cm [facility] POCT GLUCOSE (AUTOMATED) 2022-08-10 08:55:00 Sy Sepulveda [facility] POCT GLUCOSE (AUTOMATED) 2022-08-10 04:37:00 Sy Sepulveda [facility] POCT GLUCOSE (AUTOMATED) 2022-08-10 01:31:00 Sy Sepulveda [facility] POCT GLUCOSE (AUTOMATED) 2022-08-10 01:05:00 Sy Sepulveda [facility] POCT GLUCOSE (AUTOMATED) 2022-08-09 21:42:00 Sy Sepulveda [facility] US ABDOMEN LIMITED 2022-08-09 20:52:32 Dayday Cm [facility] POCT GLUCOSE (AUTOMATED) 2022-08-09 17:15:00 Sy Sepulveda [facility] POCT GLUCOSE (AUTOMATED) 2022-08-09 15:02:00 Sy Sepulveda [facility] POCT GLUCOSE (AUTOMATED) 2022-08-09 13:09:00 Sy Sepulveda [facility] EXTRA TUBE LAV 2022-08-09 10:01:00 [facility]app[facility] 2022-08-09 09:51:00 Antonette Quarles [facility] BASIC METABOLIC PANEL (NA, K, CL, CO2, GLUCOSE, BUN, CREATININE, CA) 2022-08-09 09:51:00 [facility] POCT GLUCOSE (AUTOMATED) 2022-08-09 09:00:00 Sy Sepulveda [facility] POCT GLUCOSE (AUTOMATED) 2022-08-09 05:02:00 Sy Sepulveda [facility] POCT GLUCOSE (AUTOMATED) 2022-08-09 02:01:00 Sy Sepulveda [facility] PROTEIN CREAT RATIO URINE RANDOM 2022-08-09 00:26:00 Dayday Cm [facility] POCT GLUCOSE (AUTOMATED) 2022-08-08 22:04:00 Sy Sepulveda [facility] POCT GLUCOSE (AUTOMATED) 2022-08-08 16:28:00 Sherly Cherry [facility] POCT GLUCOSE (AUTOMATED) 2022-08-08 12:36:00 Sherly Cherry [facility] XR CHEST 1 VW 2022-08-08 11:20:00 Floyd Devine [facility] VITAMIN B12, LEVEL 2022-08-08 11:17:00 Floyd Devine [facility] BASIC METABOLIC PANEL (NA, K, CL, CO2, GLUCOSE, BUN, CREATININE, CA) 2022-08-08 11:17:00 Floyd Devine [facility] VITAMIN D, 25-OH 2022-08-08 11:17:00 Floyd Devine [facility] TACROLIMUS, LEVEL 2022-08-08 10:37:00 Mohit Cherry [facility] EXTRA TUBE LT. GREEN 2022-08-08 10:37:00 Sapphire Sepulveda [facility] POCT GLUCOSE (AUTOMATED) 2022-08-08 10:32:00 Sherly Cherry [facility] CT ABDOMEN PELVIS WO CONTRAST 2022-08-08 06:46:13 Mohit Cherry [facility] POCT GLUCOSE (AUTOMATED) 2022-08-08 06:26:00 Sherly Cherry [facility] POCT GLUCOSE (AUTOMATED) 2022-08-08 05:11:00 Sherly Cherry [facility] POCT GLUCOSE (AUTOMATED) 2022-08-08 04:21:00 Sherly Cherry [facility] URINALYSIS 2022-08-08 03:51:00 Mohit Cherry [facility] ACUTE CARE VENOUS BLOOD GAS 2022-08-08 03:49:00 Mohit Cherry [facility] AMYLASE 2022-08-08 03:48:00 Floyd Devine [facility] LIPASE 2022-08-08 03:48:00 Mohit Cherry [facility] THYROID STIMULATING HORMONE 2022-08-08 03:48:00 Floyd Devine [facility] COMP. METABOLIC PANEL ([id number]) 2022-08-08 03:48:00 Mohit Cherry [facility] LIPID PANEL ([id number])(TOTAL CHOLESTEROL, TRIGLYCERIDES, HDL) 2022-08-08 03:48:00 Floyd Devine [facility] CBC WITH DIFF 2022-08-08 03:48:00 Mohit Cherry [facility] GLYCOSYLATED HEMOGLOBIN (A1C) 2022-08-08 03:48:00 Floyd Devine [facility] N-TERMINAL PRO-BNP 2022-08-08 03:48:00 [facility] 2022-08-08 02:36:00 Doc tor Unassigned, [place] [facility] [place] CONSENT/REFUSAL FOR DIAGNOSIS AND TREATMENT 2022-08-08 02:16:24 Doctor Unassigned, [place] [facility] HOSPITAL ADMISSION 2022-08-07 05:01:00 Doctor Un assigned, [place] [facility] DEXA AXIAL (HIP AND SPINE) 2022-07-31 15:46:35 Vignesh Doan [facility] DME/SUPPLY JUSTIFICATION 2022-06-16 05:01:00 Doc tor Unassigned, [place] [facility] DME/SUPPLY JUSTIFICATION 2022-05-09 06:01:00 Doc tor Unassigned, [place] [facility] CT THORAX WO CONTRAST 2022-05-08 15:47:58 Ita Cai [facility] DME/SUPPLY JUSTIFICATION 2022-05-02 06:01:00 Doc tor Unassigned, [place] [facility] US HEAD NECK 2022-04-23 17:50:21 [facility] STUDY DATA REPORT 2022-04-22 06:01:00 Doct or Unassigned, [place] [facility] PULMONARY FUNCTION TEST (RESULTS) 2022-04-16 17:44:43 Ita Cai [facility] CONSENT/REFUSAL FOR DIAGNOSIS AND TREATMENT 2022-04-08 18:45:04 Doctor Unassigned, [place] [facility] XR CHEST 2 VW 2022-03-28 17:00:58 Ita Cai [facility] CONSENT/REFUSAL FOR DIAGNOSIS AND TREATMENT 2022-03-24 17:53:17 Doctor Unassigned, [place] [facility] FLU VACC ([id number]), 6 MO-64 YRS, .5ML, IM, QUAD (FLUCELVAX) 2022-02-03 17:17:57 Michelle Mcdermott [facility] URINALYSIS 2022-01-03 15:42:00 Amena Bowman [facility] CREATININE, URINE RANDOM 2022-01-03 15:42:00 Amena Oneill [facility] TOTAL PROTEIN, URINE RANDOM 2022-01-03 15:42:00 Amena Marte [facility] AMYLASE 2022-01-03 15:40:00 Amena Bowman [facility] LIPASE 2022-01-03 15:40:00 Amean Bowman [facility] CBC WITH DIFF 2022-01-03 15:40:00 Amena Bowman [facility] N-TERMINAL PRO-BNP 2022-01-03 15:40:00 Griffin Guevara [facility] COLONOSCOPY (ENDO) 2019-01-03 12:54:17 Rafi Gaona [facility] CONSENT/REFUSAL FOR DIAGNOSIS AND TREATMENT 2014-10-05 13:45:40 Doctor Unassigned, [place] [facility] OPERATIVE NOTES 2014-09-28 05:01:00 Doctor Unass igned, [place] [facility] [place] 2014-09-28 05:01:00 Doct or Unassigned, [place] [facility] ELBOW LESS THAN 3 VIEWS 2012-08-09 14:14:00 Allison Howe [facility] BI SCREENING MAMMOGRAM BILATERAL 2012-01-12 20:28:00 Parker Burks [facility] CA-125 2012-01-12 19:10:[address] [facility] FOLLICLE STIMULATING HORMONE 2012-01-12 19:10:00 Parker Burks [facility] LUTEINIZING HORMONE SERUM 2012-01-12 19:10:00 Laith Bruks [facility] ESTRADIOL, LEVEL 2012-01-12 19:10:00 Parker Burks [facility] TESTOSTERONE LC-MS/MS, F&T 2012-01-12 19:10:00 Parker Burks [facility] RESTAURANT [employer] MEMBER ORDER/REPORT PROCEDURE 2012-01-12 19:00:00 Parker Burks [facility] PATIENT QUESTIONNAIRE 2012-01-12 05:01:00 Doctor Unassigned, [place] [facility] OB / [employer]BER CLINIC NOTE 2012-01-12 05:01:00 Doctor Unassigned, [place] [facility] DERMATOPATHOLOGY TISSUE EXAM 2012-01-12 00:00:00 Sandi Nicole [facility] US ABDOMEN LIMITED 2011-07-08 15:02:00 Spencer Oakesid Feliciano dahl [facility] HCV ANTIBODY 2008-11-30 14:31:00 [facility] - HIV TYPE 1 AND 2 ANTIBODY TESTING 2008-05-30 22:34:00 Roro Tobias [facility] Complete Blood Count w/Diff and Platelet [facility] Epic Magnesium Level [facility] Epic Basic Metabolic Panel [facility] [place] Epic Phosphorus Level [facility] Tacrolimus Level [facility] Hepatic Function Panel Memor ial [place] Epic ECG 12 lead [facility] Plan of Care Planned Activity Planned Date Details Comments Source Procedure 2024-08-04 00:00:00 POCT Glucose Mem orial [place] Epic Encounters Start Date/Time End Date/Time Encounter Type Admission Type Attending [facility] Care Facility Care Department Encounter ID Source 2021-12-03 10:01:52 Emergency X [facility] [id number] [facility] 2021-06-21 18:32:26 Outpatient [facility] [id number] - [id number] [facility] 2021-04-25 10:58:47 Outpatient 3 [facility] lillie Meghanlinda ENCPL CRD [id number] [facility] 2021-04-25 10:58:16 Outpatient 3 [id number] ENC[facility] REF [id number] [facility] [place] [facility] 2021-01-27 23:18:53 Outpatient RAFAEL FERRARI [facility] GIE [id number] [facility] 2021-01-26 06:29:57 Outpatient U [facility] S[facility] [id number] [facility] 2021-01-26 01:12:40 Inpatient AN LATHAM JR [facility] [id number] [facility] 2024-07-12 00:00:00 2024-07-12 10:33:24 Telephone Amena Veliz do [facility] 1.84.114 350.1.13.10 4.2.7.2.686 [id number] [facility] 2024-07-12 00:00:00 2024-07-12 09:30:59 Telephone Jess Doan [facility] 1.840.114 350.1.13.10 4.2.7.2.686 [id number] [facility] 2024-07-05 07:33:00 2024-07-11 16:37:00 Hospital Encounter Rivera Metzger, Amaya Aguilar [facility] [place] [facility] 1.840.114 350.1.13.70 8.2.7.2.686 [id number] [facility] 2024-07-05 07:33:00 2024-07-11 16:37:00 Inpatient Urgent AMAYA HUNT [facility] Cardiology [id number] [facility] 2024-07-11 00:00:00 2024-07-11 13:46:11 Telephone Angelica Veras, Angelica Aguiar [facility] 1..840.114 350.1.13.10 4.2.7.2.686 [id number] [facility] 2024-07-05 10:30:00 2024-07-05 10:30:00 Outpatient JUSTINA TRUJILLO OGECHUKWU [facility] [id number] [facility] 2024-06-28 00:00:00 2024-06-28 13:42:19 Telephone Angelica Veras [place] [facility] MED[facility] OFFICE BUILDING 1.2840.114 350.1.13.10 4.2.7.2.686 [id number] [facility] 2024-06-27 00:00:00 2024-06-27 12:56:38 Jess Rosa [facility] 1.2840.114 350.1.13.10 4.2.7.2.686 [id number] [facility] 2024-06-08 10:30:00 2024-06-08 10:30:00 Outpatient R [facility] [id number] [facility] 2024-06-02 00:00:00 2024-06-02 12:13:32 Telephone Justina Melendez [facility] 1.0.114 350.1.13.10 4.2.7.2.686 [id number] [facility] 2024-05-26 10:00:00 2024-05-26 10:00:00 Outpatient R GRIFFIN GUEVARA [facility] [id number] [facility] 2011-07-08 00:00:00 2024-05-14 05:30:46 Orders Only Donald Oakes Rashid Hasan [facility] 1.0.114 350.1.13.10 4.2.7.2.686 [id number] [facility] 2012-01-12 00:00:00 2024-05-14 05:07:00 Orders Only Parker Burks [facility] 1.2840.114 350.1.13.10 4.2.7.2.686 [id number] [facility] 2012-08-09 00:00:00 2024-05-14 04:46:08 Orders Only Kunal Howe [facility] 1.2840.114 350.1.13.10 4.2.7.2.686 [id number] [facility] 2014-09-28 00:00:00 2024-05-14 04:27:35 Orders Only Doctor Unassigned, [place] Doctor Unassigned, [place] [facility] 1.2.840.114 350.1.13.10 4.2.7.2.686 [id number] [facility] 2016-10-29 00:00:00 2024-05-14 03:41:56 Orders Only Doctor Unassigned, [place] Doctor Unassigned, [place] [facility] 1.2840.114 350.1.13.10 4.2.7.2.686 [id number] [facility] 2018-12-13 00:00:00 2024-05-14 03:07:49 Orders Only Aldo Bond [facility] ([facility] 1..114 350.1.13.10 4.2.7.2.686 [id number] [facility] 2020-12-04 00:00:00 2024-05-14 02:53:36 Orders Only Dina Hernandez Gillian D [facility] 1..114 350.1.13.10 4.2.7.2.686 [id number] [facility] 2022-12-23 00:00:00 2024-05-14 02:38:04 Orders Only Dina Hernandez Gillian D [facility] 1.840.114 350.1.13.10 4.2.7.2.686 [id number] [facility] 2022-12-23 00:00:00 2024-05-14 02:38:04 Orders Only Rafat Garg Donesha N [facility] 1.2840.114 350.1.13.10 4.2.7.2.686 [id number] [facility] 2024-05-09 08:30:00 2024-05-09 16:30:00 Office Visit Richarlouie [facility] MEDICAL OFFICE BUILDING 1.2840.114 350.1.13.10 4.2.7.2.686 [id number] [facility] 2024-05-09 08:30:00 2024-05-09 08:30:00 Outpatient R EV [facility] [id number] [facility] 2024-05-09 00:00:00 2024-05-09 00:00:00 Travel 1.2.840.1 [id number] 3.104.2.7 .3.734124 .8 1.2.840.114 350.1.13.10 4.2.7.3.698 [id number] [facility] 2024-05-05 14:30:00 2024-05-05 14:30:00 Outpatient R GRIFFIN GUEVARA [facility] [id number] [facility] 2024-05-03 09:30:00 2024-05-03 10:33:58 Outpatient R FRANKI [facility] [id number] [facility] 2024-05-03 09:30:00 2024-05-03 10:33:58 Office Visit Franki [facility] MEDICAL OFFICE BUILDING 1.2840.114 350.1.13.10 4.2.7.2.686 [id number] [facility] 2024-05-03 09:00:00 2024-05-03 09:24:42 Tester [employer]ocket [employer] Visit Unknown, Attending Lab, Ang - Db 1.2.840.1 99473.1.1 3.104.2.7 .3.084741 .8 [id number] [facility] 2024-05-03 00:00:00 2024-05-03 00:00:00 Travel 1.2.840.1 86602.1.1 3.104.2.7 .3.539018 .8 1.2.840.114 350.1.13.10 4.2.7.3.698 [id number] [facility] 2024-04-28 10:30:00 2024-04-28 10:30:00 Outpatient R GRIFFIN GUEVARA [facility] [id number] [facility] 2024-04-27 10:00:00 2024-04-27 10:00:00 Outpatient R [facility] [id number] [facility] 2024-04-25 00:00:00 2024-04-25 13:12:23 Telephone Justina Melendez 1.2840.1 60489.1.1 3.104.2.7 .3.791242 .8 [id number] [facility] 2024-04-21 10:00:00 2024-04-21 10:00:00 Outpatient R [facility] [id number] [facility] 2024-03-10 00:00:00 2024-04-16 18:22:12 Patient Secure Msg Doctor Unassigned, [place] 1.2.840.1 97541.1.1 3.104.2.7 .3.564146 .8 [id number] [facility] 2024-04-14 00:00:00 2024-04-14 12:44:38 Telephone Jess Doan 1.2.840.1 35034.1.1 3.104.2.7 .3.715043 .8 [id number] [facility] 2024-04-12 10:30:00 2024-04-12 11:52:50 Outpatient R JESS DOAN [facility] [id number] [facility] 2024-04-12 10:30:00 2024-04-12 11:52:50 Office Visit Franki Jess 1.2.840.1 66488.1.1 3.104.2.7 .3.228025 .8 [id number] [facility] 2024-04-12 00:00:00 2024-04-12 00:00:00 Travel 1.2.840.1 07046.1.1 3.104.2.7 .3.599541 .8 1.2.840.114 350.1.13.10 4.2.7.3.698 084.8 [id number] [facility] 2024-04-08 00:00:00 2024-04-08 13:17:28 Telephone Jess Doan 1.2.840.1 22558.1.1 3.104.2.7 .3.397599 .8 [id number] [facility] 2024-04-07 00:00:00 2024-04-07 00:00:00 RefMika Burden 1.2.840.1 50857.1.1 3.104.2.7 .3.449662 .8 [id number] [facility] 2024-04-06 00:00:00 2024-04-06 13:28:45 Telephone Justina Melendez 1.2.840.1 35813.1.1 3.104.2.7 .3.190302 .8 [id number] [facility] 2024-04-01 00:00:00 2024-04-03 15:50:14 Telephone Justina Melendez 1.2.840.1 55437.1.1 3.104.2.7 .3.909696 .8 [id number] [facility] 2024-03-24 00:00:00 2024-03-31 16:11:57 Telephone Justina Melendez 1.2.840.1 71305.1.1 3.104.2.7 .3.262776 .8 [id number] [facility] 2024-03-21 00:00:00 2024-03-21 10:38:09 Letter (Out) 1.2.840.1 57339.1.1 3.104.2.7 .3.972147 .8 [id number] [facility] 2024-03-11 00:00:00 2024-03-11 10:40:07 Case Management Sharonda Howe 1.2.840.1 18962.1.1 3.104.2.7 .3.002711 .8 [id number] [facility] 2024-03-11 08:30:00 2024-03-11 09:10:54 Outpatient R JESS DOAN [facility] [id number] [facility] 2024-03-11 08:30:00 2024-03-11 09:10:54 Nurse Visit Jess Doan 1, Adc [facility] 1.2.840.1 26838.1.1 3.104.2.7 .3.423347 .8 [id number] [facility] 2024-03-09 11:00:00 2024-03-09 11:33:25 Office Visit Justina Melendez 1.2.840.1 26585.1.1 3.104.2.7 .3.608525 .8 [id number] [facility] 2024-03-09 10:30:00 2024-03-09 11:33:17 Outpatient R JUSTINA MELENDEZ OGECHUKWU [facility] [id number] [facility] 2024-03-09 10:30:00 2024-03-09 11:33:17 Office Visit Justina Melendez 1.2.840.1 93777.1.1 3.104.2.7 .3.457885 .8 [id number] [facility] 2024-03-08 10:40:00 2024-03-08 11:40:33 Outpatient R JEFF BERNARD [facility] [id number] [facility] 2024-03-08 10:40:00 2024-03-08 11:40:33 Office Visit Jeff Bernard Gene 1.2.840.1 97324.1.1 3.104.2.7 .3.513185 .8 [id number] [facility] 2024-03-08 00:00:00 2024-03-08 00:00:00 Travel 1.2.840.1 43241.1.1 3.104.2.7 .3.286770 .8 1.2.840.114 350.1.13.10 4.2.7.3.698 084.8 [id number] [facility] 2024-03-04 00:00:00 2024-03-04 13:32:28 Telephone Angelika Bryan 1.2.840.1 01883.1.1 3.104.2.7 .3.946614 .8 [id number] [facility] 2024-02-26 00:00:00 2024-03-02 13:04:07 Refill Justina Melendez 1.2.840.1 10466.1.1 3.104.2.7 .3.457239 .8 [id number] [facility] 2024-02-23 00:00:00 2024-02-23 12:43:06 Telephone Rafi Gaona 1.2.840.1 68482.1.1 3.104.2.7 .3.346451 .8 [id number] [facility] 2024-02-13 00:00:00 2024-02-22 09:13:05 Telephone Jeff Bernard Gene 1.2.840.1 36440.1.1 3.104.2.7 .3.545103 .8 [id number] [facility] 2024-02-13 10:55:36 2024-02-13 23:59:00 Outpatient JEFF WILSON [facility] [id number] [facility] 2024-02-13 10:55:36 2024-02-13 23:59:00 Hospital Encounter Jeff Bernard Gene 1.2.840.1 36526.1.1 3.104.2.7 .3.808078 .8 [id number] [facility] 2024-02-09 00:00:00 2024-02-10 14:35:48 Telephone Franki [facility] 1..840.114 350.1.13.10 4.2.7.2.686 [id number] [facility] 2024-02-10 00:00:00 2024-02-10 10:39:44 Refill Franki [facility] 1..840.114 350.1.13.10 4.2.7.2.686 [id number] [facility] 2024-02-09 00:00:00 2024-02-09 15:40:54 Letter (Out) Rafi Gaona [facility] 1..840.114 350.1.13.10 4.2.7.2.686 [id number] [facility] 2024-02-08 00:00:00 2024-02-08 10:38:21 Telephone Angelika Bryan Khushbu [facility] 1.2840.114 350.1.13.10 4.2.7.2.686 [id number] [facility] 2024-02-08 00:00:00 2024-02-08 08:23:52 Telephone Amena Veliz do [facility] 1.20.114 350.1.13.10 4.2.7.2.686 [id number] [facility] 2024-02-05 15:00:00 2024-02-05 15:52:34 Outpatient JEFF WILSON [facility] [id number] [facility] 2024-02-05 15:00:00 2024-02-05 15:52:34 Office Visit Jeff Bernard [facility] MEDICAL OFFICE BUILDING 1.2.840.114 350.1.13.10 4.2.7.2.686 [id number] [facility] 2024-02-03 09:00:00 2024-02-03 09:15:00 Tester [employer]ocket [employer] Visit 2, Adc Lab Omar Weiss 2, [facility] 1..840.114 350.1.13.10 4.2.7.2.686 [id number] [facility] 2024-02-03 09:00:00 2024-02-03 09:14:52 Outpatient R OMAR WEISS AJAY [facility] [id number] [facility] 2024-02-02 09:00:00 2024-02-02 09:00:00 Outpatient R [facility] [id number] [facility] 2024-01-28 00:00:00 2024-02-01 10:08:17 Telephone Amena Veliz do [facility] 1.2.840.114 350.1.13.10 4.2.7.2.686 [id number] [facility] 2024-01-28 08:45:00 2024-01-28 09:47:05 Outpatient R OMAR WEISS AJAY [facility] [id number] [facility] 2024-01-28 08:45:00 2024-01-28 09:47:05 Office Visit Omar Weiss [facility] 1.0.114 350.1.13.10 4.2.7.2.686 [id number] [facility] 2024-01-26 09:20:00 2024-01-26 09:20:00 Outpatient JEFF WILSON [facility] [id number] [facility] 2024-01-25 00:00:00 2024-01-25 13:30:10 Telephone Amena Veliz do [facility] 1..114 350.1.13.10 4.2.7.2.686 [id number] [facility] 2024-01-25 00:00:00 2024-01-25 10:15:07 Telephone Jeff Bernard [facility] 1..114 350.1.13.10 4.2.7.2.686 [id number] [facility] 2024-01-21 00:00:00 2024-01-21 14:08:23 Telephone Angelika Bryan Khushbu A [facility] 1.0.114 350.1.13.10 4.2.7.2.686 [id number] [facility] 2024-01-21 09:15:00 2024-01-21 09:15:00 Outpatient R [facility] [id number] [facility] 2024-01-13 13:30:00 2024-01-13 14:20:07 Outpatient R JUSTINA MELENDEZ OGECHUKWU [facility] [id number] [facility] 2024-01-13 13:30:00 2024-01-13 14:20:07 Office Visit Justina Melendez [facility] 1..840.114 350.1.13.10 4.2.7.2.686 [id number] [facility] 2024-01-06 12:00:00 2024-01-06 12:00:00 Outpatient R JUSTINA MELENDEZ OGECHUKWU [facility] [id number] [facility] 2024-01-06 00:00:00 2024-01-06 11:50:45 Telephone Angelika Bryan Khushbu A [facility] 1.840.114 350.1.13.10 4.2.7.2.686 [id number] [facility] 2023-12-24 08:45:00 2023-12-24 08:45:00 Outpatient R GRUPO CROUCH [facility] [id number] [facility] 2023-12-22 00:00:00 2023-12-22 16:52:16 Telephone Grupo Crouch [facility] 1.840.114 350.1.13.10 4.2.7.2.686 [id number] [facility] 2023-12-15 00:00:00 2023-12-22 16:33:36 Telephone Jess Doan [facility] OFF[facility] 1.840.114 350.1.13.10 4.2.7.2.686 [id number] [facility] 2023-12-17 00:00:00 2023-12-21 09:49:41 Telephone Franki [facility] MEDICAL OFFICE BUILDING 1.2840.114 350.1.13.10 4.2.7.2.686 [id number] [facility] 2023-12-18 00:00:00 2023-12-18 13:37:11 Telephone Rafi Gaona [facility] 1.840.114 350.1.13.10 4.2.7.2.686 [id number] [facility] 2023-12-17 00:00:00 2023-12-17 16:02:51 Telephone Amena Veliz do [facility] 1.840.114 350.1.13.10 4.2.7.2.686 [id number] [facility] 2023-12-16 00:00:00 2023-12-16 15:35:43 Refill Frank[facility] 1.840.114 350.1.13.10 4.2.7.2.686 [id number] 220 [id number] [facility] 2023-12-16 00:00:00 2023-12-16 15:08:57 Telephone Angelika Bryan Khushbu A [facility] 1.840.114 350.1.13.10 4.2.7.2.686 [id number] 220 [id number] [facility] 2023-12-15 14:30:00 2023-12-15 15:53:35 Outpatient R NORAJUSTINA OGECHUKWU [facility] [id number] [facility] 2023-12-15 14:30:00 2023-12-15 15:53:35 Office Visit Justina Melendez [facility] BUILD[facility] 1.2.840.114 350.1.13.10 4.2.7.2.686 [id number] [id number] [facility] 2023-12-15 09:15:00 2023-12-15 09:30:00 Tester [employer] Visit Lab, Ang - [facility], [facility] - Zachary [facility] 1.2.840.114 350.1.13.10 4.2.7.2.686 [id number] [facility] 2023-12-11 00:00:00 2023-12-11 15:16:45 Telephone Franki [facility] 1.2.840.114 350.1.13.10 4.2.7.2.686 [id number] 220 [id number] [facility] 2023-12-10 00:00:00 2023-12-10 16:47:00 Telephone Justina Melendez [facility] 1.2.840.114 350.1.13.10 4.2.7.2.686 [id number] [id number] [facility] 2023-12-10 00:00:00 2023-12-10 11:21:30 Telephone Franki [facility] [place] 1.2.840.114 350.1.13.10 4.2.7.2.686 [id number] 220 [id number] [facility] 2023-12-10 00:00:00 2023-12-10 11:02:55 [facility] 1.2.840.114 350.1.13.10 4.2.7.2.686 [id number] [id number] [facility] 2023-12-09 00:00:00 2023-12-10 08:37:43 Refill NoraReed aguileraannabella [facility] [facility] 1.2.840.114 350.1.13.10 4.2.7.2.686 [id number] 044 [id number] [facility] 2023-12-08 00:00:00 2023-12-09 10:20:55 Refill Nora Sebastiánana rosajannette [facility] 1.2.840.114 350.1.13.10 4.2.7.2.686 [id number] 044 [id number] [facility] 2023-12-08 08:30:00 2023-12-08 08:30:00 Outpatient R JUSTINA MELENDEZ OGECHUKWU [facility] [id number] [facility] 2023-12-04 00:00:00 2023-12-04 12:14:21 Telephone Transplant, Kidney Medicine Transplant, Kidney Medicine [facility] 1.2.840.114 350.1.13.10 4.2.7.2.686 [id number] [facility] 2023-11-19 00:00:00 2023-12-01 09:58:23 Refill NoraNancie vidalesannabella [facility] 1.2.840.114 350.1.13.10 4.2.7.2.686 [id number] 044 [id number] [facility] 2023-11-26 15:30:00 2023-11-26 16:13:28 Outpatient R BRIGITTE MONZON CHRISTINE [facility] [id number] [facility] 2023-11-26 15:30:00 2023-11-26 15:45:00 Tester Rocket Engine Visit Lab, Brigitte Goldman Lab, Rick [facility] OFF[facility] 1.2.840.114 350.1.13.10 4.2.7.2.686 [id number] [facility] 2023-11-23 00:00:00 2023-11-24 16:21:24 Telephone Lucina Cisneros Kayla M [facility] 1.2840.114 350.1.13.10 4.2.7.2.686 [id number] [facility] 2023-11-24 00:00:00 2023-11-24 15:57:59 Telephone Franki [facility] 1..840.114 350.1.13.10 4.2.7.2.686 [id number] 220 [id number] [facility] 2023-11-24 00:00:00 2023-11-24 11:30:17 Telephone Franki [facility] 1.2.840.114 350.1.13.10 4.2.7.2.686 [id number] [facility] 2023-11-23 20:14:00 2023-11-23 23:43:00 Emergency X MOHIT CHERRY [facility] ERT [id number] [facility] 2023-11-23 20:14:00 2023-11-23 23:43:00 Emergency Mohit Cherry [facility] 1.2840.114 350.1.13.10 4.2.7.2.686 [id number] 084 [id number] [facility] 2023-11-19 00:00:00 2023-11-20 07:48:13 Refill Atul Doanjose de jesus [facility]WHITLEYWiliam [facility] 1.2.840.114 350.1.13.10 4.2.7.2.686 [id number] [facility] 2023-11-19 00:00:00 2023-11-19 10:59:55 Refill Justina Melendez [facility] 1.2.840.114 350.1.13.10 4.2.7.2.686 [id number] 044 [id number] [facility] 2023-11-19 00:00:00 2023-11-19 10:18:00 Telephone Griffin Guevara [facility] 1.2.840.114 350.1.13.10 4.2.7.2.686 [id number] 059 [id number] [facility] 2023-11-16 00:00:00 2023-11-17 14:21:54 Telephone Marshall Werner [facility] 1.2.840.114 350.1.13.10 4.2.7.2.686 [id number] 044 [id number] [facility] 2023-11-17 13:00:00 2023-11-17 13:14:51 Tester Rocket Engine Visit Lab, Ang - Jess Boykin Lab, Ang - Zachary [facility]?WHITLEYWiliam [facility] 1.2.840.114 350.1.13.10 4.2.7.2.686 [id number] [facility] 2023-11-17 12:00:00 2023-11-17 12:57:10 Outpatient R JESS DOAN [facility] [id number] [facility] 2023-11-17 12:00:00 2023-11-17 12:57:10 Office Visit Jess Doan [facility] 1.2.840.114 350.1.13.10 4.2.7.2.686 [id number] 220 [id number] [facility] 2023-11-13 00:00:00 2023-11-16 16:19:43 Telephone Transplant, Kidney Medicine Transplant, Kidney Medicine [facility] 1.2840.114 350.1.13.10 4.2.7.2.686 [id number] [facility] 2023-11-11 08:01:53 2023-11-11 23:59:00 Hospital Encounter Leilani Denise Brad [facility] 1.2.840.114 350.1.13.10 4.2.7.2.686 [id number] [facility] 2023-11-11 08:01:38 2023-11-11 23:59:00 Outpatient R DENISE [facility] [id number] [facility] 2023-11-11 08:01:38 2023-11-11 23:59:00 Hospital Encounter Leilani Denise Brad [facility] 1.2.840.114 350.1.13.10 4.2.7.2.686 [id number] [facility] 2023-11-10 00:00:00 2023-11-10 17:52:47 Telephone NoraJustina [facility] 1.2.840.114 350.1.13.10 4.2.7.2.686 [id number] 044 [id number] [facility] 2023-11-10 00:00:00 2023-11-10 17:33:31 Telephone Nancie [facility]endezjann[facility] 1.2.840.114 350.1.13.10 4.2.7.2.686 [id number] 044 [id number] [facility] 2023-11-10 10:00:00 2023-11-10 10:00:00 Outpatient R JESS DOAN [facility] [id number] [facility] 2023-11-05 00:00:00 2023-11-08 07:23:06 Telephone Justina Melendez [facility] 1.2840.114 350.1.13.10 4.2.7.2.686 [id number] 044 [id number] [facility] 2023-11-03 00:00:00 2023-11-04 16:27:40 Telephone Griffin Guevara [facility] 1.2.114 350.1.13.10 4.2.7.2.686 [id number] [facility] 2023-11-03 11:00:00 2023-11-03 15:14:57 Outpatient R GRIFFIN GUEVARA [facility] [id number] [facility] 2023-11-03 11:00:00 2023-11-03 11:30:00 Office Visit Griffin Guevara [facility] 1.2.114 350.1.13.10 4.2.7.2.686 [id number] [id number] [facility] 2023-09-10 00:00:00 2023-10-17 18:22:47 Patient Secure Msg Doctor Unassigned, [place] [facility] 1.20.114 350.1.13.10 4.2.7.2.686 [id number] [facility] 2023-10-09 00:00:00 2023-10-09 13:06:26 Refill Justina Melendez [facility] 1.2840.114 350.1.13.10 4.2.7.2.686 [id number] 044 [id number] [facility] 2023-10-02 10:30:00 2023-10-02 10:43:39 Office Visit Leilani Denise [facility] 1.2.840.114 350.1.13.10 4.2.7.2.686 [id number] [facility] 2023-10-02 10:00:00 2023-10-02 10:00:00 Tester Rocket Engine Visit 2, Adc Lab Amena Veliz do [facility] 1.2.840.114 350.1.13.10 4.2.7.2.686 [id number] [facility] 2023-10-02 10:00:00 2023-10-02 09:58:46 Outpatient AMENA LOMBARDI DO [facility] [id number] [facility] 2023-09-28 00:00:00 2023-09-28 15:17:34 Telephone Amena Veliz do [facility] 1.2.840.114 350.1.13.10 4.2.7.2.686 [id number] [facility] 2023-09-23 09:53:00 2023-09-23 13:31:00 Emergency Constance Tellez [facility] 1.2.840.114 350.1.13.10 4.2.7.2.686 [id number] [facility] 2023-09-23 09:00:00 2023-09-23 09:34:54 Outpatient CARMELA STUART [facility] [id number] [facility] 2023-09-23 09:00:00 2023-09-23 09:34:54 Outpatient CARMELA [facility] ERT [id number] [facility] 2023-09-23 09:00:00 2023-09-23 09:34:54 Urgent Care Carmela Vo [facility] 1.2.840.114 350.1.13.10 4.2.7.2.686 [id number] [facility] 2023-09-16 00:00:00 2023-09-16 18:30:41 Telephone Griffin Guevara [facility] 1.2.840.114 350.1.13.10 4.2.7.2.686 [id number] 059 [id number] [facility] 2023-09-08 00:00:00 2023-09-09 15:28:55 Telephone NoraNancie aguilerajannette [facility] 1.2.840.114 350.1.13.10 4.2.7.2.686 [id number] [id number] [facility] 2023-09-07 11:50:56 2023-09-07 23:59:00 Hospital Encounter Justina Melendez [facility] 1.2.840.114 350.1.13.10 4.2.7.2.686 [id number] [facility] 2023-09-07 09:30:00 2023-09-07 11:31:22 Outpatient R JUSTINA MELENDEZ REEDSherlyRaegan [facility] [id number] [facility] 2023-09-07 09:30:00 2023-09-07 11:31:22 Office Visit Justina Melendez [facility] 1.2.840.114 350.1.13.10 4.2.7.2.686 [id number] [facility] 2023-09-01 12:00:00 2023-09-01 12:00:00 Outpatient R ATUL DOANONG [facility] [id number] [facility] 2023-08-31 00:00:00 2023-09-01 09:04:16 Refill ClementeMaria De JesusNadira RaeganMarshall [facility] 1.2.840.114 350.1.13.10 4.2.7.2.686 [id number] 044 [id number] [facility] 2023-08-25 10:00:00 2023-08-25 10:00:00 Outpatient Roopa DOAN [facility] [id number] [facility] 2023-08-19 00:00:00 2023-08-19 15:40:28 Refill Franki [facility] 1.2840.114 350.1.13.10 4.2.7.2.686 [id number] [facility] 2023-08-06 00:00:00 2023-08-06 16:08:29 [facility] 1.2840.114 350.1.13.10 4.2.7.2.686 [id number] [facility] 2023-08-05 00:00:00 2023-08-05 08:54:33 Patient Outreach Bobbi Vora [facility] 1.2840.114 350.1.13.10 4.2.7.2.686 [id number] [id number] [facility] 2023-08-03 00:00:00 2023-08-04 16:41:31 Telephone Justina Melendez [facility] 1.2840.114 350.1.13.10 4.2.7.2.686 [id number] [id number] [facility] 2023-08-04 00:00:00 2023-08-04 10:46:04 Telephone Justina Melendez [facility] 1.2.840.114 350.1.13.10 4.2.7.2.686 [id number] [facility] 2023-08-03 11:30:00 2023-08-03 12:13:55 Outpatient R GRIFFIN GUEVARA [facility] [id number] [facility] 2023-08-03 11:30:00 2023-08-03 12:13:55 Office Visit Griffin Guevara [facility] 1.2.840.114 350.1.13.10 4.2.7.2.686 [id number] [facility] 2023-08-03 00:00:00 2023-08-03 11:20:13 Telephone Justina Melendez [facility] 1.2.840.114 350.1.13.10 4.2.7.2.686 [id number] [id number] [facility] 2023-07-22 14:00:00 2023-07-22 14:00:00 Outpatient R [facility] [id number] [facility] 2023-07-02 00:00:00 2023-07-02 00:00:00 Refill Justina Melendez [facility] 1.2.840.114 350.1.13.10 4.2.7.2.686 [id number] 044 [id number] [facility] 2023-06-30 08:30:00 2023-06-30 08:30:00 Outpatient R DENISE DUKE [facility] [id number] [facility] 2023-06-25 11:00:00 2023-06-25 11:15:00 Tester Rocket Engine Visit Vtc-Lab Karrie millard, Amena Beauchamp [facility]TY [facility] 1.2.840.114 350.1.13.10 4.2.7.2.686 [id number] [facility] 2023-06-25 11:00:00 2023-06-25 11:00:00 Outpatient R AMENA VELIZ DO [facility] [id number] [facility] 2023-06-25 10:00:00 2023-06-25 10:47:29 Office Visit Rafi Gaona Muhammad [facility]TY [facility] 1.114 350.1.13.10 4.2.7.2.686 [id number] [facility] 2023-06-25 00:00:00 2023-06-25 00:00:00 Patient Secure Msg Doctor Unassigned, [place] [facility] 1.114 350.1.13.10 4.2.7.2.686 [id number] [facility] 2023-06-16 10:58:20 2023-06-16 23:59:00 Outpatient R JUSTINA MELENDEZ OGECHUKWU [facility] [id number] [facility] 2023-06-16 10:58:20 2023-06-16 23:59:00 Hospital Encounter NoraJustina [facility] 1.114 350.1.13.10 4.2.7.2.686 [id number] [facility] 2023-06-16 11:30:00 2023-06-16 11:45:00 Tester Rocket Engine Visit Jena, Adc Lab Main Justina Melendez do, Ann K N [facility] PROFESSIO NAL BUILDING 1.84.114 350.1.13.10 4.2.7.2.686 [id number] [facility] 2023-06-16 00:00:00 2023-06-16 00:00:00 Refill [facility] 1.2.840.114 350.1.13.10 4.2.7.2.686 [id number] [facility] 2023-06-16 00:00:00 2023-06-16 00:00:00 Patient Outreach Diony Bobbi Brad [facility] 1.2.840.114 350.1.13.10 4.2.7.2.686 [id number] [id number] [facility] 2023-06-10 00:00:00 2023-06-10 00:00:00 Telephone Grupo Crouch [facility]TY [facility] 1.2.840.114 350.1.13.10 4.2.7.2.686 [id number] [facility] 2023-06-10 00:00:00 2023-06-10 00:00:00 Telephone Griffin Guevara [facility] 1.2.840.114 350.1.13.10 4.2.7.2.686 [id number] 059 [id number] [facility] 2023-06-09 00:00:00 2023-06-09 00:00:00 Patient Outreach Kelsey Adams [facility] 1.2.840.114 350.1.13.10 4.2.7.2.686 [id number] [id number] [facility] 2023-06-08 10:45:00 2023-06-08 11:00:00 Tester Rocket Engine Visit 2, Adc Lab Justina Melendez [facility] 1.2.840.114 350.1.13.10 4.2.7.2.686 [id number] [facility] 2023-06-08 09:30:00 2023-06-08 10:37:04 Outpatient R JUSTINA MELENDEZ OGECHUKWU [facility] [id number] [facility] 2023-06-08 09:30:00 2023-06-08 10:37:04 Office Visit [facility]endez [facility] 1..114 350.1.13.10 4.2.7.2.686 [id number] [facility] 2023-06-08 00:00:00 2023-06-08 00:00:00 Telephone Amena Veliz do [facility] 1.114 350.1.13.10 4.2.7.2.686 [id number] [facility] 2023-06-08 00:00:00 2023-06-08 00:00:00 Orders Only Doctor Unassigned, [place] [facility] 1.114 350.1.13.10 4.2.7.2.686 [id number] [facility] 2023-05-28 10:40:00 2023-05-28 10:40:00 Outpatient R GRUPO CROUCH [facility] [id number] [facility] 2023-05-28 00:00:00 2023-05-28 00:00:00 Telephone Rafi Gaona [facility] 1.114 350.1.13.10 4.2.7.2.686 [id number] [facility] 2023-05-27 00:00:00 2023-05-27 00:00:00 Telephone Griffin [facility]var[facility] 1.2.840.114 350.1.13.10 4.2.7.2.686 [id number] [facility] 2023-05-07 09:00:00 2023-05-07 09:00:00 Outpatient R ITA CAI SHIWAN [facility] [id number] [facility] 2023-05-04 00:00:00 2023-05-04 00:00:00 Telephone Grupo Crouch [facility] 1..840.114 350.1.13.10 4.2.7.2.686 [id number] [facility] 2023-04-22 11:20:00 2023-04-22 11:23:27 Outpatient R OBI-NADIRA , MARSHALL OBI[facility]NADIRA , [facility] [id number] [facility] 2023-04-22 11:20:00 2023-04-22 11:23:27 Office [facility] 1.2.840.114 350.1.13.10 4.2.7.2.686 [id number] [facility] 2023-04-22 10:30:00 2023-04-22 11:05:29 Tester Rocket Engine Visit 2, Adc Lab Amena Veliz do [facility] 1.2.840.114 350.1.13.10 4.2.7.2.686 [id number] [facility] 2023-04-14 11:20:00 2023-04-14 11:20:00 Outpatient R OBI-NADIRA , MARSHALL OBI-NADIRA , [facility] [id number] [facility] 2023-04-09 11:00:00 2023-04-09 11:00:00 Outpatient R GRUPO CROUCH [facility] [id number] [facility] 2023-04-08 00:00:00 2023-04-08 00:00:00 Telephone Amena Veliz do [facility] I[facility]TY [facility] AND [facility] 1.2.840.114 350.1.13.10 4.2.7.2.686 [id number] [facility] 2023-04-07 00:00:00 2023-04-07 00:00:00 Telephone Angelika Bryan [facility]TY [facility] 1.2.840.114 350.1.13.10 4.2.7.2.686 [id number] [facility] 2023-04-06 11:30:00 2023-04-06 11:30:02 Outpatient R GRIFFIN GUEVARA [facility] [id number] [facility] 2023-04-06 11:30:00 2023-04-06 11:30:02 Office Visit Griffin Guevara [facility] 1.2.840.114 350.1.13.10 4.2.7.2.686 [id number] [facility] 2023-03-30 00:00:00 2023-03-30 00:00:00 Telephone Justina Melendez [facility] 1.2.840.114 350.1.13.10 4.2.7.2.686 [id number] 044 [id number] [facility] 2023-03-27 06:23:00 2023-03-28 18:40:00 Outpatient MEL NUNO [facility] [id number] [facility] 2023-03-27 06:23:00 2023-03-28 18:40:00 Hospital Encounter Jeyson, Rafi A Petar Collins Rachel [facility] 1.2.840.114 350.1.13.10 4.2.7.2.686 [id number] [facility] 2023-03-27 07:30:00 2023-03-27 09:00:00 Surgery Rafi Benítez [facility] 1.2.840.114 350.1.13.10 4.2.7.2.686 [id number] [facility] 2023-03-27 00:00:00 2023-03-27 00:00:00 Orders Only Doctor Unassigned, [place] [facility] 1.2.840.114 350.1.13.10 4.2.7.2.686 [id number] [facility] 2023-03-26 00:00:00 2023-03-26 00:00:00 Prep For Surgery Jack Moseley [facility] 1.2.840.114 350.1.13.10 4.2.7.2.686 [id number] [facility] 2023-03-17 00:00:00 2023-03-17 00:00:00 Telephone Jess Doan [facility] 1.2840.114 350.1.13.10 4.2.7.2.686 [id number] [facility] 2023-03-17 00:00:00 2023-03-17 00:00:00 Refill Mehrdad Jimenez [facility] 1.2.840.114 350.1.13.10 4.2.7.2.686 [id number] [facility] 2023-03-13 00:00:00 2023-03-13 00:00:00 Refill Justina Melendez [facility] 1..840.114 350.1.13.10 4.2.7.2.686 [id number] [facility] 2023-03-09 13:00:00 2023-03-09 13:00:00 Outpatient R AMENA VELIZ DO [facility] [id number] [facility] 2023-03-06 00:00:00 2023-03-06 00:00:00 Patient Secure Msg Doctor Unassigned, [place] [facility] 1..840.114 350.1.13.10 4.2.7.2.686 [id number] [facility] 2023-03-05 00:00:00 2023-03-05 00:00:00 Refill Justina Melendez [facility] 1..840.114 350.1.13.10 4.2.7.2.686 [id number] [facility] 2023-03-04 00:00:00 2023-03-04 00:00:00 Telephone Doan [facility] 1..840.114 350.1.13.10 4.2.7.2.686 [id number] [facility] 2023-03-03 10:30:00 2023-03-03 11:33:56 Outpatient R DOAN [facility] [id number] [facility] 2023-03-03 10:30:00 2023-03-03 11:33:56 Office Visit Franki [facility]GINA [facility] 1.2.840.114 350.1.13.10 4.2.7.2.686 [id number] [facility] 2023-03-02 00:00:00 2023-03-02 00:00:00 Telephone [employer] [facility] 1.2.840.114 350.1.13.10 4.2.7.2.686 [id number] [facility] 2023-03-01 00:00:00 2023-03-01 00:00:00 Refill Pieter Law [facility] 1.2.840.114 350.1.13.10 4.2.7.2.686 [id number] [facility] 2023-02-25 11:00:00 2023-02-25 15:03:19 Outpatient GRIFFIN TERRY [facility] [id number] [facility] 2023-02-25 11:00:00 2023-02-25 15:03:19 Office Visit Griffin Guevara [facility] 1.2.840.114 350.1.13.10 4.2.7.2.686 [id number] [facility] 2023-02-25 00:00:00 2023-02-25 00:00:00 RefMarshall Reynaga [facility] 1.2.840.114 350.1.13.10 4.2.7.2.686 [id number] [facility] 2023-02-17 00:00:00 2023-02-17 00:00:00 Refill Pieter Law [facility] 1.2.840.114 350.1.13.10 4.2.7.2.686 [id number] [facility] 2023-02-16 09:00:00 2023-02-16 09:00:00 Outpatient KRISTIN HUTCHINS [facility] [id number] [facility] 2023-02-14 00:00:00 2023-02-14 00:00:00 RefPieter Elizondo [facility] 1.84.114 350.1.13.10 4.2.7.2.686 [id number] [facility] 2023-01-21 00:00:00 2023-01-21 00:00:00 Telephone Amena Veliz do [facility] 1.114 350.1.13.10 4.2.7.2.686 [id number] [facility] 2023-01-21 00:00:00 2023-01-21 00:00:00 Telephone Mehrdad Jimenez [facility] 1.84.114 350.1.13.10 4.2.7.2.686 [id number] 220 [id number] [facility] 2023-01-19 00:00:00 2023-01-19 00:00:00 Telephone Angelika Bryan [facility] 1..114 350.1.13.10 4.2.7.2.686 [id number] 220 [id number] [facility] 2023-01-14 10:00:00 2023-01-14 10:00:00 Outpatient MICHELLE PUENTE [facility] [id number] [facility] 2023-01-13 00:00:00 2023-01-13 00:00:00 Telephone Angelika Bryan [facility] 1..114 350.1.13.10 4.2.7.2.686 [id number] 220 [id number] [facility] 2023-01-12 00:00:00 2023-01-12 00:00:00 Telephone Angelika Bryan [facility] 1..114 350.1.13.10 4.2.7.2.686 [id number] 220 [id number] [facility] 2023-01-08 09:00:00 2023-01-08 09:00:00 Outpatient R GRIFFIN GUEVARA [facility] [id number] [facility] 2023-01-07 11:00:00 2023-01-07 11:39:03 Outpatient R JUSTINA MELENDEZ OGECHUKRaegan [facility] [id number] [facility] 2023-01-07 11:00:00 2023-01-07 11:39:03 Office Visit NoraSebastiánbrodieannabella [facility] NAL BUILDING 1..114 350.1.13.10 4.2.7.2.686 [id number] 044 [id number] [facility] 2023-01-07 09:30:00 2023-01-07 11:38:53 Office Visit Reed Melendezsherlyraegan [facility] NAL BUILDING 1.2.114 350.1.13.10 4.2.7.2.686 [id number] [id number] [facility] 2023-01-02 00:00:00 2023-01-02 00:00:00 Refill Mehrdad Jimenez [facility] OFF[facility] BUILD[facility] 1.84.114 350.1.13.10 4.2.7.2.686 [id number] [facility] 2023-01-02 00:00:00 2023-01-02 00:00:00 Telephone [employer] [facility] MULTISPEC IALTY CENTER AND [facility] 1..114 350.1.13.10 4.2.7.2.686 [id number] [facility] 2023-01-02 00:00:00 2023-01-02 00:00:00 Telephone Mehrdad Jimenez [facility] DEST[facility] MED[facility] OFF[facility] BU[facility] 1.2.840.114 350.1.13.10 4.2.7.2.686 [id number] [facility] 2023-01-02 00:00:00 2023-01-02 00:00:00 Refill Jess Doan [facility] MED[facility] OFFICE BUILDING 1.840.114 350.1.13.10 4.2.7.2.686 [id number] [facility] 2022-12-29 09:00:00 2022-12-29 09:00:00 Outpatient R JUSTINA MELENDEZ OGECHUKWU [facility] [id number] [facility] 2022-12-25 00:00:00 2022-12-25 00:00:00 Telephone Tony [facility] MEDICAL OFFICE BUILDING 1.840.114 350.1.13.10 4.2.7.2.686 [id number] [facility] 2022-12-25 00:00:00 2022-12-25 00:00:00 Patient Secure Msg Doctor Unassigned, [place] [facility] 1..840.114 350.1.13.10 4.2.7.2.686 [id number] [facility] 2022-12-23 10:00:00 2022-12-23 12:18:16 Tester Rocket Engine Visit Lab, Rick Sharma [facility] MED[facility] OFF[facility] BUILD[facility] 1..840.114 350.1.13.10 4.2.7.2.686 [id number] [facility] 2022-12-23 11:00:00 2022-12-23 12:16:10 Outpatient R TRUDY JIMENEZA [facility] [id number] [facility] 2022-12-23 11:00:00 2022-12-23 12:16:10 Office Visit Marybethsven Mehrdad [facility]?GINA [facility]X MED[facility] OFFICE BUILDING 1.2.840.114 350.1.13.10 4.2.7.2.686 [id number] [facility] 2022-12-23 00:00:00 2022-12-23 00:00:00 Orders Only Doctor Unassigned, [place] [facility] 1..840.114 350.1.13.10 4.2.7.2.686 [id number] [facility] 2022-12-22 00:00:00 2022-12-22 00:00:00 Telephone [employer] [facility] MULTISPEC IALTY CENTER AND [facility] 1.840.114 350.1.13.10 4.2.7.2.686 [id number] [facility] 2022-12-17 00:00:00 2022-12-17 00:00:00 Telephone Justina Melendez [facility] 1..840.114 350.1.13.10 4.2.7.2.686 [id number] [facility] 2022-12-04 10:20:00 2022-12-04 10:20:00 Outpatient R GRUPO CROUCH [facility] [id number] [facility] 2022-12-02 11:15:00 2022-12-02 11:15:00 Outpatient R [facility] [id number] [facility] 2022-11-27 00:00:00 2022-11-27 00:00:00 Patient Secure Msg Doctor Unassigned, [place] [facility] IAY [facility]OLFE AND [facility] 1.114 350.1.13.10 4.2.7.2.686 [id number] [facility] 2022-11-23 00:00:00 2022-11-23 00:00:00 Refill Justina Melendez [facility] 1.114 350.1.13.10 4.2.7.2.686 [id number] [facility] 2022-11-21 10:30:00 2022-11-21 10:30:00 Outpatient R ITA CAI SHINVQuynh [facility] [id number] [facility] 2022-11-20 09:30:00 2022-11-20 09:30:00 Outpatient R GRIFFIN GUEVARA [facility] [id number] [facility] 2022-11-17 00:00:00 2022-11-17 00:00:00 Refill Ita Cai [facility] BUILD[facility] 1.114 350.1.13.10 4.2.7.2.686 [id number] [facility] 2022-11-11 00:00:00 2022-11-11 00:00:00 Telephone Amena Veliz [facility] .114 350.1.13.10 4.2.7.2.686 [id number] [facility] 2022-11-06 00:00:00 2022-11-06 00:00:00 Patient Secure Msg Doctor Unassigned, [place] [facility]?GINA MARX MED[facility] OFF[facility] BUILDING 1.114 350.1.13.10 4.2.7.2.686 [id number] 044 [id number] [facility] 2022-10-30 00:00:00 2022-10-30 00:00:00 Telephone Justina Melendez [facility] BU[facility] 1.2.840.114 350.1.13.10 4.2.7.2.686 [id number] [id number] [facility] 2022-10-29 09:30:00 2022-10-29 09:30:00 Outpatient R REED MELENDEZSherlyRaegan [facility] [id number] [facility] 2022-10-26 00:00:00 2022-10-26 00:00:00 Refill Jess Doan [facility] 1..840.114 350.1.13.10 4.2.7.2.686 [id number] [facility] 2022-10-22 10:00:00 2022-10-22 10:00:00 Outpatient R MICHELLE MCDERMOTT [facility] [id number] [facility] 2022-10-21 00:00:00 2022-10-21 00:00:00 Telephone Justina Melendez [facility] BU[facility] 1.2.840.114 350.1.13.10 4.2.7.2.686 [id number] [id number] [facility] 2022-10-21 00:00:00 2022-10-21 00:00:00 Patient Secure Msg Doctor Unassigned, [place] [facility] BU[facility] 1.2.840.114 350.1.13.10 4.2.7.2.686 [id number] [facility] 2022-10-20 00:00:00 2022-10-20 00:00:00 Telephone Justina Melendez [facility] BU[facility] 1.2.840.114 350.1.13.10 4.2.7.2.686 [id number] [facility] 2022-10-18 00:00:00 2022-10-18 00:00:00 Refill Justina Melendez [facility] PROFESSIO NAL BUILDING 1.84114 350.1.13.10 4.2.7.2.686 [id number] [facility] 2022-10-18 00:00:00 2022-10-18 00:00:00 Refill Karrie millard, Amena Beauchamp [facility] IAY [facility] 1.114 350.1.13.10 4.2.7.2.686 [id number] [facility] 2022-10-03 00:00:00 2022-10-03 00:00:00 Patient Secure Msg Doctor Unassigned, [place] [facility] 1.84114 350.1.13.10 4.2.7.2.686 [id number] 220 [id number] [facility] 2022-10-02 00:00:00 2022-10-02 00:00:00 Telephone Mehrdad Jimenez [facility] DESTINY?[facility] MEDICAL OFFICE BUILDING 1.84114 350.1.13.10 4.2.7.2.686 [id number] [facility] 2022-09-26 00:00:00 2022-09-26 00:00:00 Telephone Tony Mehrdad [facility] DESTINY?[facility] OFF[facility] BUILD[facility] 1.114 350.1.13.10 4.2.7.2.686 [id number] 220 [id number] [facility] 2022-09-23 15:00:00 2022-09-23 15:15:00 Tester Rocket Engine Visit Lab, Ang - Db Nwajei, [facility] 1.84.114 350.1.13.10 4.2.7.2.686 [id number] [facility] 2022-09-23 13:30:00 2022-09-23 15:00:14 Outpatient R [facility] [id number] [facility] 2022-09-23 13:30:00 2022-09-23 15:00:14 Office Visit Tony [facility] MED[facility] OFF[facility] BUILDING 1.840.114 350.1.13.10 4.2.7.2.686 [id number] [facility] 2022-09-22 00:00:00 2022-09-22 00:00:00 Patient Secure Msg Doctor Unassigned, [place] [facility] 1..114 350.1.13.10 4.2.7.2.686 [id number] [facility] 2022-09-19 10:30:00 2022-09-19 10:30:00 Outpatient R [facility] [id number] [facility] 2022-09-18 00:00:00 2022-09-18 00:00:00 Telephone Justina Melendez [facility] BU[facility] 1.84.114 350.1.13.10 4.2.7.2.686 [id number] [facility] 2022-09-11 00:00:00 2022-09-11 00:00:00 Patient Outreach Bobbi Vora [facility] BU[facility] 1.84.114 350.1.13.10 4.2.7.2.686 [id number] [facility] 2022-09-10 10:30:00 2022-09-10 11:24:46 Outpatient R JUSTINA MELENDEZ OGECHUKWU [facility] [id number] [facility] 2022-09-10 10:30:00 2022-09-10 11:24:46 Office Visit [facility] 1.840.114 350.1.13.10 4.2.7.2.686 [id number] [facility] 2022-09-09 00:00:00 2022-09-09 00:00:00 Telephone Franki Jess [facility] 1..114 350.1.13.10 4.2.7.2.686 [id number] [facility] 2022-09-08 00:00:00 2022-09-08 00:00:00 Patient Secure Msg Doctor Unassigned, [place] [facility] BU[facility] 1.84.114 350.1.13.10 4.2.7.2.686 [id number] [facility] 2022-09-01 09:20:00 2022-09-01 11:06:40 Outpatient R GRUPO CROUCH [facility] [id number] [facility] 2022-09-01 09:20:00 2022-09-01 11:06:40 Office Visit [employer] do, Ann K N [facility] MULTISPEC IALTY CENTER AND [facility] 1.114 350.1.13.10 4.2.7.2.686 [id number] [facility] 2022-09-01 08:45:00 2022-09-01 09:00:00 Tester Rocket Engine Visit Vtc-Lab [employer] [facility] MULTISPEC [facility]TY CENTER [facility] 1.114 350.1.13.10 4.2.7.2.686 [id number] [facility] 2022-08-29 14:00:00 2022-08-29 14:00:00 Outpatient R JUSTINA MELENDEZ OGECHUKWU [facility] [id number] [facility] 2022-08-29 13:30:00 2022-08-29 13:30:00 Outpatient R MEHRDAD JIMENEZ [facility] [id number] [facility] 2022-08-26 00:00:00 2022-08-26 00:00:00 Telephone [employer] [facility] MULTISPEC [facility]ALTY CENTER [facility] 1.114 350.1.13.10 4.2.7.2.686 [id number] [facility] 2022-08-22 00:00:00 2022-08-22 00:00:00 Telephone Amena Veliz do [facility] MULTISPEC IALTY CENTER AND [facility] 1. 350.1.13.10 4.2.7.2.686 [id number] [facility] 2022-08-21 10:30:00 2022-08-21 11:21:14 Outpatient R ITA CAI SHIWAN [facility] [id number] [facility] 2022-08-21 10:30:00 2022-08-21 11:21:14 Office Visit Ita Cai [facility] 1.114 350.1.13.10 4.2.7.2.686 [id number] [facility] 2022-08-21 00:00:00 2022-08-21 00:00:00 Orders Only Doctor Unassigned, [place] [facility] 1.114 350.1.13.10 4.2.7.2.686 [id number] [facility] 2022-08-20 00:00:00 2022-08-20 00:00:00 Telephone rFanki [facility] G[facility]TT MEDICAL OFFICE BUILDING 1.2840.114 350.1.13.10 4.2.7.2.686 [id number] 220 [id number] [facility] 2022-08-19 11:30:00 2022-08-19 11:30:00 Outpatient R FRANKI [facility] [id number] [facility] 2022-08-19 00:00:00 2022-08-19 00:00:00 Telephone Franki [facility] MEDICAL OFFICE BUILDING 1.840.114 350.1.13.10 4.2.7.2.686 [id number] 220 [id number] [facility] 2022-08-19 00:00:00 2022-08-19 00:00:[address] [facility] 1.840.114 350.1.13.10 4.2.7.2.686 [id number] [facility] 2022-08-15 00:00:00 2022-08-15 00:00:00 Telephone Alena Ziegler [facility] 1.840.114 350.1.13.10 4.2.7.2.686 [id number] [facility] 2022-08-13 00:00:00 2022-08-13 00:00:00 Telephone [employer] [facility] 1.840.114 350.1.13.10 4.2.7.2.686 [id number] [facility] 2022-08-13 00:00:00 2022-08-13 00:00:00 Refill Jess Doan [facility]?GINA MARX MEDICAL OFFICE BUILDING 1.84.114 350.1.13.10 4.2.7.2.686 [id number] [facility] 2022-08-12 00:00:00 2022-08-12 00:00:00 Transition of Care Kristel Bobbi L AZUL BOSCH 1.840.114 350.1.13.10 4.2.7.2.686 [id number] [facility] 2022-08-12 00:00:00 2022-08-12 00:00:00 Telephone [employer] [facility] CENTER AND [facility] 1.84.114 350.1.13.10 4.2.7.2.686 [id number] [facility] 2022-08-07 21:42:00 2022-08-11 17:42:00 Inpatient U SURAJ [facility] [id number] [facility] 2022-08-07 21:42:00 2022-08-11 17:42:00 Hospital [facility] 1.840.114 350.1.13.10 4.2.7.2.686 [id number] [facility] 2022-08-06 10:30:00 2022-08-06 10:30:00 Outpatient R JUSTINA MELENDEZ OGECHUKWU [facility] [id number] [facility] 2022-07-31 09:49:15 2022-07-31 23:59:00 Outpatient R FRANKI [facility] [id number] [facility] 2022-07-31 09:49:15 2022-07-31 23:59:00 Hospital Encounter Jess Doan [facility] 1.2.840.114 350.1.13.10 4.2.7.2.686 [id number] [facility] 2022-07-22 13:00:00 2022-07-22 13:00:00 Outpatient R ELLISMARIOLA [facility] [id number] [facility] 2022-07-15 09:20:00 2022-07-15 09:30:13 Outpatient R MICHELLE MCDERMOTT [facility] [id number] [facility] 2022-07-15 09:20:00 2022-07-15 09:30:13 Office Visit [facility] BUILDING 1.2.840.114 350.1.13.10 4.2.7.2.686 [id number] [facility] 2022-07-10 00:00:00 2022-07-10 00:00:00 Telephone Griffin Guevara [facility] BUILD[facility] 1.2.840.114 350.1.13.10 4.2.7.2.686 [id number] [facility] 2022-07-10 00:00:00 2022-07-10 00:00:00 Telephone Ita Cai [facility] 1.2.840.114 350.1.13.10 4.2.7.2.686 [id number] [facility] 2022-07-08 00:00:00 2022-07-08 00:00:00 Telephone Griffin GuevaraHSandy [facility] PROFESSIO NAL BUILDING 1.2.840.114 350.1.13.10 4.2.7.2.686 [id number] [facility] 2022-07-07 00:00:00 2022-07-07 00:00:00 Telephone [employer] [facility] 1.0.114 350.1.13.10 4.2.7.2.686 [id number] [facility] 2022-07-07 00:00:00 2022-07-07 00:00:00 Patient Secure Msg Doctor Unassigned, [place] [facility] 1.0.114 350.1.13.10 4.2.7.2.686 [id number] [facility] 2022-07-04 11:00:00 2022-07-04 11:00:00 Outpatient AMENA LOMBARDI DO [facility] [id number] [facility] 2022-07-04 11:00:00 2022-07-04 11:00:00 Tester Rocket Engine Visit 2, Adc Lab Amena Vleiz do [facility] 1.0.114 350.1.13.10 4.2.7.2.686 [id number] [facility] 2022-06-19 00:00:00 2022-06-19 00:00:00 Telephone Miko Moncada A [facility] 1..114 350.1.13.10 4.2.7.2.686 [id number] [facility] 2022-06-16 00:00:00 2022-06-16 00:00:00 Orders Only Doctor Unassigned, [place] [facility] 1.0.114 350.1.13.10 4.2.7.2.686 [id number] [facility] 2022-06-13 00:00:00 2022-06-13 00:00:00 Outpatient JUSTINA TRUJILLO OGECHUKWU [facility] [id number] [facility] 2022-06-10 12:00:00 2022-06-10 12:19:37 Outpatient R JUSTINA MELENDEZ OGECHUKWU [facility] [id number] [facility] 2022-06-10 12:00:00 2022-06-10 12:19:37 Office Visit Justina Melendez [facility] BUILD[facility] 1.2.840.114 350.1.13.10 4.2.7.2.686 [id number] [facility] 2022-05-19 10:40:00 2022-05-19 10:40:00 Outpatient R JUSTINA MELENDEZ OGECHUKWU [facility] [id number] [facility] 2022-05-09 11:00:00 2022-05-09 11:05:39 Outpatient R ITA CAI SHIWAN [facility] [id number] [facility] 2022-05-09 11:00:00 2022-05-09 11:05:39 Office Visit Ita Cai [facility] BUILD[facility] 1.2.840.114 350.1.13.10 4.2.7.2.686 [id number] [facility] 2022-05-09 00:00:00 2022-05-09 00:00:00 Orders Only Doctor Unassigned, [place] [facility] 1.2.840.114 350.1.13.10 4.2.7.2.686 [id number] [facility] 2022-05-08 08:43:10 2022-05-08 23:59:00 Outpatient R ITA CAI SHIWAN [facility] [id number] [facility] 2022-05-08 08:43:10 2022-05-08 23:59:00 Hospital Encounter Ita Cai [facility] 1.2.840.114 350.1.13.10 4.2.7.2.686 [id number] [facility] 2022-05-02 00:00:00 2022-05-02 00:00:00 Patient Secure Msg Doctor Unassigned, [place] [facility] 1.2.840.114 350.1.13.10 4.2.7.2.686 [id number] [facility] 2022-05-02 00:00:00 2022-05-02 00:00:00 Orders Only Doctor Unassigned, [place] [facility] 1.2840.114 350.1.13.10 4.2.7.2.686 [id number] [facility] 2022-04-28 00:00:00 2022-04-28 00:00:00 Telephone Ita Cai [facility] 1.2.840.114 350.1.13.10 4.2.7.2.686 [id number] [facility] 2022-04-28 00:00:00 2022-04-28 00:00:00 Telephone Jess Doan [facility] 1.2.840.114 350.1.13.10 4.2.7.2.686 [id number] [facility] 2022-04-28 00:00:00 2022-04-28 00:00:00 Telephone Ita Cai [facility] 1.2.840.114 350.1.13.10 4.2.7.2.686 [id number] [facility] 2022-04-25 10:00:00 2022-04-25 10:00:00 Outpatient GRIFFIN TERRY [facility] [id number] [facility] 2022-04-25 10:00:00 2022-04-25 10:00:00 Outpatient R PAOLA CHELALOPEZ [facility] [id number] [facility] 2022-04-24 09:30:00 2022-04-24 09:30:00 Outpatient R GUEVARA GRIFFIN [facility] [id number] [facility] 2022-04-23 10:22:25 2022-04-23 23:59:00 Outpatient R FRANKI JESS [facility] [id number] [facility] 2022-04-23 10:22:25 2022-04-23 23:59:00 Hospital Encounter FrankiJess [facility] 1.2840.114 350.1.13.10 4.2.7.2.686 [id number] [facility] 2022-04-22 11:30:00 2022-04-22 11:30:00 Office Visit Justina Melendez [facility] PROFESS[facility] 1.20.114 350.1.13.10 4.2.7.2.686 [id number] [facility] 2022-04-22 10:00:00 2022-04-22 10:15:00 Tester Rocket Engine Visit Fani [facility] Alexandre Kelly [facility] 1.20.114 350.1.13.10 4.2.7.2.686 [id number] [facility] 2022-04-22 10:00:00 2022-04-22 10:00:00 Outpatient R ALEXANDRE KELLY STRAHIL [facility] [id number] [facility] 2022-04-22 00:00:00 2022-04-22 00:00:00 Orders Only Doctor Unassigned, [place] [facility] 1.840.114 350.1.13.10 4.2.7.2.686 [id number] [facility] 2022-04-16 13:00:00 2022-04-16 14:30:00 Tester [employer] Visit Therapist, Teresita Pickens [facility] 1.2.840.114 350.1.13.10 4.2.7.2.686 [id number] [facility] 2022-04-16 13:00:00 2022-04-16 13:00:00 Outpatient TERESITA LACY [facility] [id number] [facility] 2022-04-16 00:00:00 2022-04-16 00:00:00 Orders Only Ita Cai [facility] 1.2.840.114 350.1.13.10 4.2.7.2.686 [id number] [facility] 2022-04-11 08:00:00 2022-04-11 09:02:26 Outpatient R JUAN ANTONIOROBERT RILEYIAN [facility] [id number] [facility] 2022-04-11 08:00:00 2022-04-11 09:02:26 Office Visit Denise Duke Brad [facility] 1.2.840.114 350.1.13.10 4.2.7.2.686 [id number] [facility] 2022-04-10 09:00:00 2022-04-10 09:00:00 Outpatient R ALEXANDRE KELLY STRAHIL [facility] [id number] [facility] 2022-04-08 13:30:00 2022-04-08 13:48:19 Outpatient R JUSTINA MELENDEZ OGECHUKWU [facility] [id number] [facility] 2022-04-08 13:30:00 2022-04-08 13:48:19 Office Visit Justina Melendez [facility] 1.2.840.114 350.1.13.10 4.2.7.2.686 [id number] [facility] 2022-04-08 00:00:00 2022-04-08 00:00:00 Orders Only Doctor Unassigned, [place] [facility] 1.2.840.114 350.1.13.10 4.2.7.2.686 [id number] [facility] 2022-04-01 10:30:00 2022-04-01 10:30:00 Outpatient R DENISE DUKE [facility] [id number] [facility] 2022-03-28 10:51:56 2022-03-28 23:59:00 [facility] [id number] [facility] 2022-03-28 10:51:56 2022-03-28 23:59:00 Hospital Encounter Ita Cai [facility] 1.2.840.114 350.1.13.10 4.2.7.2.686 [id number] [facility] 2022-03-28 10:30:00 2022-03-28 10:30:00 Outpatient R JUSTINA MELENDEZ OGECHUKWU [facility] [id number] [facility] 2022-03-28 09:30:00 2022-03-28 10:22:22 Office Visit Ita Cai [facility] 1.2.840.114 350.1.13.10 4.2.7.2.686 [id number] [facility] 2022-03-24 12:09:00 2022-03-24 13:44:00 Emergency X [facility] [id number] [facility] 2022-03-24 12:09:00 2022-03-24 13:44:00 Emergency Candy Dillard [facility] 1.840.114 350.1.13.10 4.2.7.2.686 [id number] [facility] 2022-03-19 10:00:00 2022-03-19 10:00:00 Outpatient R JUSTINA MELENDEZ OGECHUKWU [facility] [id number] [facility] 2022-03-06 00:00:00 2022-03-06 00:00:00 [facility] DE JESUS [facility] [id number] [facility] 2022-02-25 10:00:00 2022-02-25 10:00:00 Outpatient R DENISE DUKE [facility] [id number] [facility] 2022-02-18 14:30:00 2022-02-18 14:45:00 Tester Rocket Engine Visit Lab, Rick Doan [facility] BU[facility] 1.840.114 350.1.13.10 4.2.7.2.686 [id number] [facility] 2022-02-18 14:00:00 2022-02-18 14:00:00 Office Visit Franki [facility] 1..840.114 350.1.13.10 4.2.7.2.686 [id number] [facility] 2022-02-18 14:00:00 2022-02-18 13:50:14 Outpatient R FRANKI [facility] [id number] [facility] 2022-02-04 00:00:00 2022-02-04 00:00:00 RefPieter Elizondo [facility] PROFESSIO NAL BUILDING 1..840.114 350.1.13.10 4.2.7.2.686 [id number] [facility] 2022-02-03 11:20:00 2022-02-03 12:39:43 Outpatient R MICHELLE MCDERMOTT [facility] [id number] [facility] 2022-02-03 11:20:00 2022-02-03 12:39:43 Office Visit Michelle Mcdermott [facility] BUILDING 1.2.840.114 350.1.13.10 4.2.7.2.686 [id number] [facility] 2022-02-03 00:00:00 2022-02-03 00:00:00 Telephone Michelle Mcdermott [facility] BUILD[facility] 1.2.840.114 350.1.13.10 4.2.7.2.686 [id number] [facility] 2022-02-02 00:00:00 2022-02-02 00:00:00 Refill Rafi Gaona [facility] 1.84.114 350.1.13.10 4.2.7.2.686 [id number] [facility] 2022-01-31 00:00:00 2022-01-31 00:00:00 Refill Amena Veliz do [facility] 1.84.114 350.1.13.10 4.2.7.2.686 [id number] [facility] 2022-01-28 13:00:00 2022-01-28 13:00:00 Outpatient GRIFFIN TERRY [facility] [id number] [facility] 2022-01-28 09:00:00 2022-01-28 09:00:00 Outpatient GRIFFIN TERRY [facility] [id number] [facility] 2022-01-21 15:00:00 2022-01-21 15:00:00 Outpatient R EV JORGENSEN [facility] [id number] [facility] 2022-01-21 13:30:00 2022-01-21 13:30:00 Outpatient JESS GREGORY [facility] [id number] [facility] 2022-01-17 00:00:00 2022-01-17 00:00:00 Refill Amena Veliz do [facility] 1..840.114 350.1.13.10 4.2.7.2.686 [id number] [facility] 2022-01-12 00:00:00 2022-01-12 00:00:00 Patient Secure Diann Corbin [facility] PROFESSIO NAL BUILDING 1..840.114 350.1.13.10 4.2.7.2.686 [id number] [facility] 2022-01-08 12:00:00 2022-01-08 12:00:00 Outpatient Roopa DOAN [facility] [id number] [facility] 2022-01-08 12:00:00 2022-01-08 12:00:00 [facility] [id number] [facility] 2022-01-07 11:30:00 2022-01-07 11:45:00 Tester Rocket Engine Visit 2, Adc Lab Pieter Law Sendil [facility] PROFESSIO NAL BUILDING 1..840.114 350.1.13.10 4.2.7.2.686 [id number] [facility] 2022-01-07 11:30:00 2022-01-07 11:30:00 Outpatient GRIFFIN TERRY [facility] [id number] [facility] 2022-01-06 00:00:00 2022-01-06 00:00:00 Chela Moscosoil K.HSandy [facility] PROFESSIO NAL BUILDING 1.2.840.114 350.1.13.10 4.2.7.2.686 [id number] [facility] 2022-01-03 10:00:00 2022-01-03 10:42:23 Tester Rocket Engine Visit 2, Adc Lab Guevara Griffin ConstanceSandySandy [facility] BUILDING 1.2.840.114 350.1.13.10 4.2.7.2.686 [id number] [facility] 2022-01-03 10:00:00 2022-01-03 10:00:00 Outpatient GRIFFIN TERRY [facility] [id number] [facility] 2022-01-03 00:00:00 2022-01-03 00:00:00 Telephone [employer] [facility] AND [facility] 1.2.840.114 350.1.13.10 4.2.7.2.686 [id number] [facility] 2021-12-25 10:00:00 2021-12-25 10:00:00 Outpatient GRIFFIN TERRY [facility] [id number] [facility] 2021-12-25 10:00:00 2021-12-25 10:00:00 Outpatient GRIFFIN TERRY [facility] [id number] [facility] 2021-12-24 14:40:00 2021-12-24 14:40:00 Outpatient R PIETER LAW [facility] [id number] [facility] 2021-12-24 10:20:00 2021-12-24 12:04:59 Outpatient R PIETER LAW [facility] [id number] [facility] 2021-12-24 10:20:00 2021-12-24 12:04:59 [facility] Visit [facility] BUILD[facility] 1..840.114 350.1.13.10 4.2.7.2.686 [id number] [facility] 2021-12-16 00:00:00 2021-12-16 00:00:00 Refill [facility] BUILD[facility] 1..840.114 350.1.13.10 4.2.7.2.686 [id number] [facility] 2021-12-13 00:00:00 2021-12-13 00:00:00 Telephone [employer] [facility] 1.840.114 350.1.13.10 4.2.7.2.686 [id number] [facility] 2021-12-05 10:20:00 2021-12-05 11:16:21 Outpatient R GRUPO CROUCH [facility] [id number] [facility] 2021-12-05 10:20:00 2021-12-05 11:16:21 Office Visit [employer] [facility] 1..840.114 350.1.13.10 4.2.7.2.686 [id number] [facility] 2021-12-05 10:20:00 2021-12-05 11:16:21 Outpatient R GRUPO CROUCH [facility] [id number] [facility] 2021-12-05 10:20:00 2021-12-05 11:16:21 Outpatient R GRUPO CROUCH [facility] [id number] [facility] 2021-12-05 00:00:00 2021-12-05 00:00:00 Telephone Griffin Guevara [facility] BUILDING 1.2.840.114 350.1.13.10 4.2.7.2.686 [id number] [facility] 2021-12-03 12:00:00 2021-12-03 12:15:00 Tester Rocket Engine Visit Pob, Adc Lab Main Griffin Guevara [facility] BUILDING 1.2.840.114 350.1.13.10 4.2.7.2.686 [id number] [facility] 2021-12-03 12:00:00 2021-12-03 12:00:00 Outpatient GRIFFIN TERRY [facility] [id number] [facility] 2021-12-03 00:00:00 2021-12-03 00:00:00 Telephone Rafi Gaona [facility]ULT[facility]PEC [facility]TY [facility] 1.840.114 350.1.13.10 4.2.7.2.686 [id number] [facility] 2021-11-28 00:00:00 2021-11-28 00:00:00 Telephone [employer] [facility] 1.284.114 350.1.13.10 4.2.7.2.686 [id number] [facility] 2021-11-26 00:00:00 2021-11-26 00:00:00 Telephone Densie Duke [facility] BUILDING 1.2.840.114 350.1.13.10 4.2.7.2.686 [id number] [facility] 2021-11-25 09:40:00 2021-11-25 09:40:00 Outpatient PIETER HIGGINBOTHAM [facility] [id number] [facility] 2021-11-22 00:00:00 2021-11-22 00:00:00 Patient Secure Msg Doctor Unassigned, [place] [facility] BUILDING 1..840.114 350.1.13.10 4.2.7.2.686 [id number] [facility] 2021-11-19 09:00:00 2021-11-19 09:00:00 Outpatient R JUAN ANTONIOJAROD DENISE [facility] [id number] [facility] 2021-11-15 00:00:00 2021-11-15 00:00:00 Refill Juan AntonioDenise riley Brad [facility] PROFESSIO NAL BUILDING 1..840.114 350.1.13.10 4.2.7.2.686 [id number] [facility] 2021-11-11 10:20:00 2021-11-11 10:20:00 Outpatient R GAMILLA-CRU DO, [facility] [id number] [facility] 2021-11-11 10:20:00 2021-11-11 10:20:00 Outpatient R GAMILLA-CRU DO, [facility] [id number] [facility] 2021-11-11 10:20:00 2021-11-11 10:20:00 Outpatient R GAMILLA-CRU DO, [facility] [id number] [facility] 2021-11-11 10:20:00 2021-11-11 10:20:00 Outpatient R GAMILLA-CRU DO, [facility] [id number] [facility] 2021-11-07 09:41:15 2021-11-07 23:59:00 Hospital Encounter Griffin Guevara [facility] 1..840.114 350.1.13.10 4.2.7.2.686 [id number] [facility] 2021-11-07 09:39:16 2021-11-07 09:40:00 Hospital Encounter Griffin Guevara [facility] 1.2.840.114 350.1.13.10 4.2.7.2.686 [id number] [facility] 2021-11-07 09:37:36 2021-11-07 09:38:00 Hospital Encounter Griffin Guevara [facility] 1.2.840.114 350.1.13.10 4.2.7.2.686 [id number] [facility] 2021-11-07 09:36:26 2021-11-07 09:36:26 Outpatient R GRIFFIN GUEVARA [facility] [id number] [facility] 2021-11-07 09:36:26 2021-11-07 09:36:26 Hospital Encounter Griffin Guevara [facility] 1.2.840.114 350.1.13.10 4.2.7.2.686 [id number] [facility] 2021-11-07 00:00:00 2021-11-07 00:00:00 Orders Only Doctor Unassigned, [place] [facility] 1.2.840.114 350.1.13.10 4.2.7.2.686 [id number] [facility] 2021-10-24 00:00:00 2021-10-24 00:00:00 Refill Pieter Law [facility] PROFESSIO [facility] BUILDING 1.2840.114 350.1.13.10 4.2.7.2.686 [id number] [facility] 2021-10-24 00:00:00 2021-10-24 00:00:00 Refill Denise Duke [facility] PROFESSIO NAL BUILDING 1.2840.114 350.1.13.10 4.2.7.2.686 [id number] [facility] 2021-10-23 10:00:00 2021-10-23 10:26:55 Outpatient R CHELA GUEVARALOPEZ [facility] [id number] [facility] 2021-10-23 10:00:00 2021-10-23 10:26:55 Office Visit Griffin Guevara ConstanceSandySuzanSandy [facility] BUILDING 1..840.114 350.1.13.10 4.2.7.2.686 [id number] [facility] 2021-10-23 10:00:00 2021-10-23 10:26:55 Outpatient R GUEVARA GRIFFIN [facility] [id number] [facility] 2021-10-23 10:00:00 2021-10-23 10:00:00 Outpatient R [facility]A [facility] [id number] [facility] 2021-10-11 00:00:00 2021-10-11 00:00:00 Grupo Hannon [facility] MULTISPEC [facility]TY [facility] 1..840.114 350.1.13.10 4.2.7.2.686 [id number] [facility] 2021-09-25 11:30:00 2021-09-25 11:30:00 Outpatient R JUSTINA MELENDEZ OGECHUKWU [facility] [id number] [facility] 2021-09-25 00:00:00 2021-09-25 00:00:00 Telephone Pieter Law [facility] BUILDING 1..840.114 350.1.13.10 4.2.7.2.686 [id number] [facility] 2021-09-24 13:30:00 2021-09-24 13:30:00 Outpatient R DENISE DUKE [facility] [id number] [facility] 2021-09-19 00:00:00 2021-09-19 00:00:00 Refill Denise Duke [facility] BUILDING 1..840.114 350.1.13.10 4.2.7.2.686 [id number] [facility] 2021-09-18 08:30:00 2021-09-18 08:30:00 Outpatient R JUSTINA MELENDEZ OGECHUKWU [facility] [id number] [facility] 2021-09-18 00:00:00 2021-09-18 00:00:00 Patient Secure Msg [facility] BUILDING 1..840.114 350.1.13.10 4.2.7.2.686 [id number] [facility] 2021-09-17 07:59:12 2021-09-17 23:59:00 [facility] [id number] [facility] 2021-08-27 15:40:00 2021-08-27 16:00:00 [facility] 1..840.114 350.1.13.10 4.2.7.2.686 [id number] [facility] 2021-08-27 15:40:00 2021-08-27 15:40:00 [facility] [id number] [facility] 2021-08-22 00:00:00 2021-08-22 00:00:00 Telephone Griffin Guevara [facility] BUILDING 1..840.114 350.1.13.10 4.2.7.2.686 [id number] [facility] 2021-08-15 00:00:00 2021-08-15 00:00:00 Refill AdDenise riley Brad [facility] PROFESSIO NAL BUILDING 1..840.114 350.1.13.10 4.2.7.2.686 [id number] [facility] 2021-08-06 13:30:00 2021-08-06 13:30:00 Outpatient Roopa LEILANI DENISE [facility] [id number] [facility] 2021-08-01 11:00:00 2021-08-01 11:30:00 Nurse Visit 1, Adc Infusion Chair Doan [facility] 1..840.114 350.1.13.10 4.2.7.2.686 [id number] [facility] 2021-08-01 11:00:00 2021-08-01 11:00:00 Outpatient R FRANKI [facility] [id number] [facility] 2021-08-01 11:00:00 2021-08-01 11:00:00 Outpatient R FRANKI [facility] [id number] [facility] 2021-08-01 00:00:00 2021-08-01 00:00:00 Telephone [facility] BUILDING 1..840.114 350.1.13.10 4.2.7.2.686 [id number] [facility] 2021-07-29 00:00:00 2021-07-29 00:00:00 Fortunato Carpenter [facility] 1..840.114 350.1.13.10 4.2.7.2.686 [id number] [facility] 2021-07-23 14:30:00 2021-07-23 14:30:00 Outpatient JORI HUITRON [facility] [id number] [facility] 2021-07-18 00:00:00 2021-07-18 00:00:00 Telephone Jeff Bernard [facility] BUILDING 1..840.114 350.1.13.10 4.2.7.2.686 [id number] [facility] 2021-07-16 13:16:51 2021-07-16 23:59:00 Outpatient JEFF WILSON [facility] [id number] [facility] 2021-07-16 13:16:51 2021-07-16 23:59:00 Hospital Encounter Jeff Bernard [facility] 1.840.114 350.1.13.10 4.2.7.2.686 [id number] [facility] 2021-07-16 13:16:51 2021-07-16 23:59:00 Outpatient Roopa GAITANEJEFF [facility] [id number] [facility] 2021-07-16 00:00:00 2021-07-16 00:00:00 Outpatient JEFF WILSON [facility] [id number] [facility] 2021-07-10 00:00:00 2021-07-10 00:00:00 Refill Denise Duke [facility] 1..840.114 350.1.13.10 4.2.7.2.686 [id number] [facility] 2021-07-09 12:30:00 2021-07-09 12:45:00 Tester Rocket Engine [facility] 1..840.114 350.1.13.10 4.2.7.2.686 [id number] [facility] 2021-07-09 12:00:00 2021-07-09 12:19:46 Outpatient JESS GREGORY [facility] [id number] [facility] 2021-07-09 12:00:00 2021-07-09 12:19:46 Office Visit FrankiJess [facility] BUILDING 1.2.840.114 350.1.13.10 4.2.7.2.686 [id number] [facility] 2021-07-09 12:00:00 2021-07-09 12:00:00 Outpatient R FRANKIJESS [facility] [id number] [facility] 2021-07-09 00:00:00 2021-07-09 00:00:00 Refill Denise Duke [facility] 1.2.840.114 350.1.13.10 4.2.7.2.686 [id number] [facility] 2021-07-08 00:00:00 2021-07-08 00:00:00 Refill Griffin Guevara [facility] 1..840.114 350.1.13.10 4.2.7.2.686 [id number] [facility] 2021-07-08 00:00:00 2021-07-08 00:00:00 Telephone Griffin Guevaar [facility] 1.2.840.114 350.1.13.10 4.2.7.2.686 [id number] [facility] 2021-07-08 00:00:00 2021-07-08 00:00:00 Refill Denise Duke [facility] BUILDING 1.2.840.114 350.1.13.10 4.2.7.2.686 [id number] [facility] 2021-07-05 13:30:00 2021-07-05 13:30:00 Outpatient DENISE PERDUE [facility] [id number] [facility] 2021-07-05 00:00:00 2021-07-05 00:00:00 Jess Rosa [facility] JAVED DIXON?[facility] BUILD[facility] 1..840.114 350.1.13.10 4.2.7.2.686 [id number] [facility] 2021-07-05 00:00:00 2021-07-05 00:00:00 Telephone J[facility] Stewart [facility] 1..840.114 350.1.13.10 4.2.7.2.686 [id number] [facility] 2021-06-24 10:40:00 2021-06-24 10:40:00 Outpatient PIETER HIGGINBOTHAM [facility] [id number] [facility] 2021-06-18 00:00:00 2021-06-18 00:00:00 Outpatient JEFF WILSON [facility] [id number] [facility] 2021-06-10 16:20:00 2021-06-10 16:20:00 Outpatient PIETER HIGGINBOTHAM [facility] [id number] [facility] 2021-06-05 13:30:00 2021-06-05 13:30:00 Outpatient DENISE PERDUE [facility] [id number] [facility] 2021-06-03 13:40:00 2021-06-03 13:40:00 Outpatient PIETER HIGGINBOTHAM [facility] [id number] [facility] 2021-05-03 10:00:00 2021-05-03 10:00:00 Outpatient DENISE PERDUE [facility] [id number] [facility] 2021-04-29 07:51:50 2021-04-29 23:59:00 Outpatient AUTUMN GIFFORD [facility] [id number] [facility] 2021-04-29 07:51:50 2021-04-29 23:59:00 Hospital Encounter Autumn Hammer, [facility] 1.2840.114 350.1.13.10 4.2.7.2.686 [id number] [facility] 2021-04-29 00:00:00 2021-04-29 00:00:00 Outpatient R AUTUMN HAMMER [facility] [id number] [facility] 2021-04-25 14:30:00 2021-04-25 14:35:12 Tester Rocket [employer] Visit 2, Adc Lab Griffin Guevara [facility] 1..840.114 350.1.13.10 4.2.7.2.686 [id number] [facility] 2021-04-25 14:30:00 2021-04-25 14:30:00 Outpatient R GRIFFIN GUEVARA [facility] [id number] [facility] 2021-04-25 14:00:00 2021-04-25 14:28:31 Office Visit Girffin Guevara [facility] 1..840.114 350.1.13.10 4.2.7.2.686 [id number] [facility] 2021-04-25 14:00:00 2021-04-25 14:28:31 Outpatient R GRIFFIN GUEVARA [facility] [id number] [facility] 2021-03-27 13:45:55 2021-03-27 23:59:00 Outpatient R RAFI GAONA [facility] [id number] [facility] 2021-03-27 13:45:00 2021-03-27 23:59:00 Hospital Encounter Rafi Gaona [facility] 1.2840.114 350.1.13.10 4.2.7.2.686 [id number] [facility] 2021-03-27 11:30:00 2021-03-27 12:30:00 Nurse Visit Therapy, Clc Dusty Valera [facility] BUILDING 1.840.114 350.1.13.10 4.2.7.2.686 [id number] [facility] 2021-03-27 00:00:00 2021-03-27 00:00:00 Telephone Amena Veliz do [facility] 1..114 350.1.13.10 4.2.7.2.686 [id number] [facility] 2021-03-26 13:15:00 2021-03-26 13:30:00 Laboratory Only Only, Adc Test Amaya Jensen [facility] 1..114 350.1.13.10 4.2.7.2.686 [id number] [facility] 2021-03-26 13:15:00 2021-03-26 13:15:00 Outpatient R [facility] [id number] [facility] 2021-03-26 00:00:00 2021-03-26 00:00:00 Telephone Rafi Gaona [facility]ULT[facility]PEC [facility] 1..114 350.1.13.10 4.2.7.2.686 [id number] [facility] 2021-03-26 00:00:00 2021-03-26 00:00:00 Telephone Amena Veliz do [facility]PEC [facility] 1.0.114 350.1.13.10 4.2.7.2.686 [id number] [facility] 2021-03-22 00:00:00 2021-03-22 00:00:00 Telephone Jeff Bernard [facility] BUILD[facility] 1..840.114 350.1.13.10 4.2.7.2.686 [id number] [facility] 2021-03-18 09:00:00 2021-03-18 09:00:00 Outpatient R DEVAUGHN XIE [facility] [id number] [facility] 2021-03-14 00:00:00 2021-03-14 00:00:00 Telephone Jeff Bernard [facility] OFFICE BUILDING 1..840.114 350.1.13.10 4.2.7.2.686 [id number] [facility] 2021-03-13 19:00:00 2021-03-13 21:37:00 Emergency X SAPPHIRE [facility] E[facility] [id number] [facility] 2021-03-13 18:20:00 2021-03-13 18:40:48 Outpatient R SUE CAMPA [facility] [id number] [facility] 2021-03-13 18:20:00 2021-03-13 18:40:48 Urgent Care L[place]ue Unknown, Attending [facility]?GINA [facility] MEDICAL OFFICE BUILDING 1..840.114 350.1.13.10 4.2.7.2.686 [id number] [facility] 2021-02-27 11:00:00 2021-02-27 11:00:00 Outpatient R GRIFFIN GUEVARA [facility] [id number] [facility] 2021-02-27 00:00:00 2021-02-27 00:00:00 Telephone [facility] NAL BUILD[facility] 1..840.114 350.1.13.10 4.2.7.2.686 [id number] [facility] 2021-02-25 14:20:00 2021-02-25 14:20:00 Outpatient R RADHA CAMPATANY [facility] [id number] [facility] 2021-02-25 13:37:20 2021-02-25 13:57:20 [facility] MEDICAL OFFICE BUILDING 1..840.114 350.1.13.10 4.2.7.2.686 [id number] [facility] 2021-02-20 00:00:00 2021-02-20 00:00:00 Telephone Jeff Bernard [facility] MED[facility] OFF[facility]ILD[facility] 1..840.114 350.1.13.10 4.2.7.2.686 [id number] [facility] 2021-02-15 16:01:01 2021-02-15 16:21:01 Urgent Care [facility] MEDICAL OFFICE BUILDING 1..840.114 350.1.13.10 4.2.7.2.686 [id number] [facility] 2021-02-15 16:00:00 2021-02-15 16:00:00 Outpatient Roopa MARTINO ESTHER [facility] [id number] [facility] 2021-02-15 00:00:00 2021-02-15 00:00:00 Telephone Denise Duke [facility]EL[facility] NAL BUILDING 1..840.114 350.1.13.10 4.2.7.2.686 [id number] [facility] 2021-02-14 10:30:00 2021-02-14 10:30:00 Outpatient R JESS DOAN [facility] [id number] [facility] 2021-02-14 10:30:00 2021-02-14 10:30:00 Outpatient R JESS DOAN [facility] [id number] [facility] 2021-02-11 13:40:00 2021-02-11 14:16:29 Outpatient R JEFF BERNARD HOWARD [facility] [id number] [facility] 2021-02-11 13:06:51 2021-02-11 14:16:29 Office Visit JoanaJeff peres Gurdeep [facility] 1.840.114 350.1.13.10 4.2.7.2.686 [id number] [facility] 2021-02-05 10:30:00 2021-02-05 10:30:00 Outpatient R PIETER LAW [facility] [id number] [facility] 2021-01-29 10:30:00 2021-01-29 10:30:00 Outpatient R FRANKI [facility] [id number] [facility] 2021-01-23 00:00:00 2021-01-23 00:00:00 Telephone [employer] [facility] MULTISPEC IALTY [facility]ENTER AND [facility] 1..114 350.1.13.10 4.2.7.2.686 [id number] [facility] 2021-01-21 00:00:00 2021-01-21 00:00:00 Telephone Griffin Guevara [facility] nal Building 1.840.114 350.1.13.10 4.2.7.2.686 [id number] [facility] 2021-01-21 00:00:00 2021-01-21 00:00:00 Telephone Franki [facility] DESTINY?[facility] 1.840.114 350.1.13.10 4.2.7.2.686 [id number] [facility] 2021-01-18 00:00:00 2021-01-18 00:00:00 Telephone [employer] [facility] MULTISPEC [facility] 1.2840.114 350.1.13.10 4.2.7.2.686 [id number] [facility] 2021-01-18 00:00:00 2021-01-18 00:00:00 Telephone [facility]an [facility] 1.2840.114 350.1.13.10 4.2.7.2.686 [id number] [facility] 2021-01-17 00:00:00 2021-01-17 00:00:00 Telephone Griffin Guevara [facility] 1.2840.114 350.1.13.10 4.2.7.2.686 [id number] [facility] 2021-01-16 11:55:44 2021-01-16 23:59:00 Hospital Encounter Griffin Guevara [facility] 1.2840.114 350.1.13.10 4.2.7.2.686 [id number] [facility] 2021-01-16 11:39:19 2021-01-16 11:54:00 Hospital Encounter Griffin Guevara [facility] 1.2840.114 350.1.13.10 4.2.7.2.686 [id number] [facility] 2021-01-16 10:30:31 2021-01-16 11:29:36 Office Visit Griffin Guevara [facility] Building 1..114 350.1.13.10 4.2.7.2.686 [id number] [facility] 2021-01-16 10:30:00 2021-01-16 10:30:00 Outpatient GRIFFIN TERRY [facility] [id number] [facility] 2021-01-16 09:37:18 2021-01-16 09:52:18 Tester Rocket Engine Visit Pob, Adc Lab Main Amena Veliz do [facility] Building 1.114 350.1.13.10 4.2.7.2.686 [id number] [facility] 2021-01-16 00:00:00 2021-01-16 00:00:00 Telephone [employer] [facility] MULTISPEC IALTY [facility] 1..114 350.1.13.10 4.2.7.2.686 [id number] [facility] 2021-01-15 00:00:00 2021-01-15 00:00:00 Orders Only Doctor Unassigned, [place] [facility] 1..114 350.1.13.10 4.2.7.2.686 [id number] [facility] 2021-01-15 00:00:00 2021-01-15 00:00:00 Telephone Amena Veliz do [facility] MULTISPEC IALTY [facility] 1..114 350.1.13.10 4.2.7.2.686 [id number] [facility] 2021-01-15 00:00:00 2021-01-15 00:00:00 Telephone Jess Doan [facility] Destiny?Gina [facility] Medical Office Building 1.114 350.1.13.10 4.2.7.2.686 [id number] [facility] 2021-01-14 17:08:00 2021-01-14 23:31:00 Emergency Constance Tellez [facility] 1..114 350.1.13.10 4.2.7.2.686 [id number] [facility] 2021-01-14 17:08:00 2021-01-14 23:31:00 Emergency X Constance [facility] ERT [id number] [facility] 2021-01-11 10:15:00 2021-01-11 10:15:00 Outpatient R [facility] [id number] [facility] 2021-01-10 00:00:00 2021-01-10 00:00:00 Telephone [employer] [facility] 1.114 350.1.13.10 4.2.7.2.686 [id number] [facility] 2021-01-08 13:30:00 2021-01-08 14:20:32 [facility] [id number] [facility] 2021-01-08 13:19:07 2021-01-08 14:20:32 Office Visit Franki [facility] 1.84.114 350.1.13.10 4.2.7.2.686 [id number] [facility] 2021-01-08 00:00:00 2021-01-08 00:00:00 Telephone Griffin Guevara [facility] Professio nal Building 1.84.114 350.1.13.10 4.2.7.2.686 [id number] [facility] 2021-01-01 10:00:00 2021-01-01 10:00:00 Outpatient R [facility] [id number] [facility] 2021-01-01 00:00:00 2021-01-01 00:00:00 Telephone [employer] [facility] CENTER AND [facility] 1.84.114 350.1.13.10 4.2.7.2.686 [id number] [facility] 2020-12-19 13:55:40 2020-12-19 23:59:00 Hospital Encounter Adam Fuller [facility] Medical Office Building 1.84.114 350.1.13.10 4.2.7.2.686 [id number] [facility] 2020-12-19 13:29:44 2020-12-19 15:55:53 Office Visit Adam Fuller [facility] Medical Office Building 1.84.114 350.1.13.10 4.2.7.2.686 [id number] [facility] 2020-12-19 14:00:00 2020-12-19 14:00:00 Outpatient R ADAM FULLER [facility] [id number] [facility] 2020-12-18 09:20:00 2020-12-18 09:20:00 Outpatient R PIETER LAW [facility] [id number] [facility] 2020-12-07 10:30:00 2020-12-07 10:30:00 Outpatient R FORTUNATO TIM [facility] [id number] [facility] 2020-12-07 00:00:00 2020-12-07 00:00:00 Refill Jess Doan [facility] Medical Office Building 1.84.114 350.1.13.10 4.2.7.2.686 [id number] [facility] 2020-12-04 15:55:42 2020-12-04 23:59:00 Hospital Encounter Pieter Law [facility] 1.2.840.114 350.1.13.10 4.2.7.2.686 [id number] [facility] 2020-12-04 15:55:42 2020-12-04 23:59:00 Hospital Encounter Pieter Law [facility] 1.2.840.114 350.1.13.10 4.2.7.2.686 [id number] [facility] 2020-12-04 16:58:42 2020-12-04 17:13:42 Tester Rocket Engine Visit Pob, Adc Lab Main Pieter Law [facility] Building 1.2.840.114 350.1.13.10 4.2.7.2.686 [id number] [facility] 2020-12-04 16:58:42 2020-12-04 17:13:42 Tester Rocket Engine Visit Po, Adc Lab Main Pieter Law [facility] nal Building 1.2.840.114 350.1.13.10 4.2.7.2.686 [id number] [facility] 2020-12-04 16:57:08 2020-12-04 17:12:08 Laboratory Only Only, Adc Test Pieter Law [facility] 1.2.840.114 350.1.13.10 4.2.7.2.686 [id number] [facility] 2020-12-04 16:57:08 2020-12-04 17:12:08 Laboratory Only Only, Adc Test Pieter Law [facility] 1.2.840.114 350.1.13.10 4.2.7.2.686 [id number] [facility] 2020-12-04 15:19:56 2020-12-04 15:20:03 Imm/Inj Visit Nurse, [facility] 1.2.840.114 350.1.13.10 4.2.7.2.686 [id number] [facility] 2020-12-04 13:31:52 2020-12-04 15:12:20 Office Visit Pieter Law [facility] Building 1.2.840.114 350.1.13.10 4.2.7.2.686 [id number] [facility] 2020-12-04 13:40:00 2020-12-04 13:40:00 Outpatient R PIETER LAW [facility] [id number] [facility] 2020-12-04 13:00:00 2020-12-04 13:00:00 Outpatient DENNY MIGUEL [facility] [id number] [facility] 2020-12-04 00:00:00 2020-12-04 00:00:00 Orders Only Doctor Unassigned, [place] [facility] 1.84.114 350.1.13.10 4.2.7.2.686 [id number] [facility] 2020-12-04 00:00:00 2020-12-04 00:00:00 Orders Only Doctor Unassigned, [place] [facility] 1.2.114 350.1.13.10 4.2.7.2.686 [id number] [facility] 2020-11-20 11:30:00 2020-11-20 11:30:00 Outpatient LISA PEREZ [facility] [id number] [facility] 2020-11-20 10:43:43 2020-11-20 11:20:19 Office Visit Griffin Guevara [facility] 1.2.840.114 350.1.13.10 4.2.7.2.686 [id number] [facility] 2020-11-20 10:43:43 2020-11-20 11:20:19 Office Visit Griffin Guevara [facility] 1.2.840.114 350.1.13.10 4.2.7.2.686 [id number] [facility] 2020-11-20 11:00:00 2020-11-20 11:00:00 Outpatient R GRIFFIN GUEVARA [facility] [id number] [facility] 2020-11-05 09:20:24 2020-11-05 10:27:16 Office Visit Rafi Gaona do, [facility] 1..840.114 350.1.13.10 4.2.7.2.686 [id number] [facility] 2020-11-05 10:20:00 2020-11-05 10:20:00 Outpatient R AMENA VELIZ DO [facility] [id number] [facility] 2020-10-29 00:00:00 2020-10-29 00:00:00 Refill Jess Doan [facility] 1.2.840.114 350.1.13.10 4.2.7.2.686 [id number] [facility] 2020-10-24 09:00:00 2020-10-24 09:00:00 Outpatient R JESS DOAN [facility] [id number] [facility] 2020-10-24 00:00:00 2020-10-24 00:00:00 Refill Jess Doan [facility] Professio [facility] 1.840.114 350.1.13.10 4.2.7.2.686 [id number] [facility] 2020-10-22 13:00:00 2020-10-22 13:00:00 Outpatient FORTUNATO BARAJAS [facility] [id number] [facility] 2020-10-22 00:00:00 2020-10-22 00:00:00 Telephone Fortunato Tim [facility] 1.840.114 350.1.13.10 4.2.7.2.686 [id number] [facility] 2020-10-18 10:20:00 2020-10-18 10:20:00 Outpatient R GRUPO CROUCH [facility] [id number] [facility] 2020-10-18 00:00:00 2020-10-18 00:00:00 Telephone [employer] [facility] MULTISPEC IALTY [facility] 1.840.114 350.1.13.10 4.2.7.2.686 [id number] [facility] 2020-10-17 00:00:00 2020-10-17 00:00:00 Refill Amena Veliz do [facility] MULTISPEC IALTY [facility] 1.840.114 350.1.13.10 4.2.7.2.686 [id number] [facility] 2020-10-15 12:15:00 2020-10-15 12:15:00 Outpatient R AMENA VELIZ DO [facility] [id number] [facility] 2020-10-15 10:59:33 2020-10-15 11:14:33 Tester Rocket Engine Visit Pob, Gagandeep Lab Main Amena Veliz do [facility] Building 1.840.114 350.1.13.10 4.2.7.2.686 [id number] [facility] 2020-10-08 10:00:00 2020-10-08 10:00:00 Outpatient R [facility] [id number] [facility] 2020-10-03 00:00:00 2020-10-03 00:00:00 Telephone Amena Veliz do [facility] MULTISPEC IALTY CENTER [facility] 1.0.114 350.1.13.10 4.2.7.2.686 [id number] [facility] 2020-10-03 00:00:00 2020-10-03 00:00:00 Telephone Griffin Guevara [facility] 1..114 350.1.13.10 4.2.7.2.686 [id number] [facility] 2020-09-26 00:00:00 2020-09-26 00:00:00 Telephone Amena Veliz do [facility] MULTISPEC IALTY CENTER [facility] 1..114 350.1.13.10 4.2.7.2.686 [id number] [facility] 2020-09-26 00:00:00 2020-09-26 00:00:[address] Do[address] [facility] Building 1..114 350.1.13.10 4.2.7.2.686 [id number] [facility] 2020-09-24 09:02:47 2020-09-24 09:17:47 Tester Rocket Engine Visit Pob, Adc Lab Main Amaya Jensen [facility] Building 1..114 350.1.13.10 4.2.7.2.686 [id number] [facility] 2020-09-24 09:15:00 2020-09-24 09:15:00 Outpatient AMAYA BUCKLEY [facility] [id number] [facility] 2020-09-24 00:00:00 2020-09-24 00:00:00 Patient Secure Msg Rafael Moralse [facility] 1.840.114 350.1.13.10 4.2.7.2.686 [id number] [facility] 2020-09-24 00:00:00 2020-09-24 00:00:00 Telephone Karrie millard, Amena Beauchamp [facility] MULTISPEC [facility] 1.0.114 350.1.13.10 4.2.7.2.686 [id number] [facility] 2020-09-24 00:00:00 2020-09-24 00:00:00 Orders Only Doctor Unassigned, [place] [facility] 1.2840.114 350.1.13.10 4.2.7.2.686 [id number] [facility] 2020-09-14 10:45:00 2020-09-14 11:29:00 Surgery Rafael Morales [facility] 1.0.114 350.1.13.10 4.2.7.2.686 [id number] [facility] 2020-09-14 09:18:00 2020-09-14 11:03:00 Hospital Encounter Rafael Morales [facility] ([facility] 1.2840.114 350.1.13.10 4.2.7.2.686 [id number] [facility] 2020-09-14 00:00:00 2020-09-14 00:00:00 Orders Only Doctor Unassigned, [place] [facility] 1.840.114 350.1.13.10 4.2.7.2.686 [id number] [facility] 2020-08-31 00:00:00 2020-08-31 00:00:00 Telephone Amena Veliz do [facility] MULTISPEC IALTY [facility] 1.840.114 350.1.13.10 4.2.7.2.686 [id number] [facility] 2020-08-22 13:44:51 2020-08-22 14:41:00 Office Visit Fortunato Tim [facility] 1.840.114 350.1.13.10 4.2.7.2.686 [id number] [facility] 2020-08-22 14:00:00 2020-08-22 14:00:00 Outpatient R FORTUNATO TIM [facility] [id number] [facility] 2020-08-15 00:00:00 2020-08-15 00:00:00 Telephone [facility] 1.840.114 350.1.13.10 4.2.7.2.686 [id number] [facility] 2020-08-14 00:00:00 2020-08-14 00:00:00 Orders Only Doctor Unassigned, [place] [facility] 1.840.114 350.1.13.10 4.2.7.2.686 [id number] [facility] 2020-08-10 00:00:00 2020-08-10 00:00:00 Telephone [employer] [facility] MULTISPEC IALTY CENTER [facility] 1.840.114 350.1.13.10 4.2.7.2.686 [id number] [facility] 2020-08-02 00:00:00 2020-08-02 00:00:00 Telephone Karrie millard, Amena Beauchamp [facility] 1.2840.114 350.1.13.10 4.2.7.2.686 [id number] [facility] 2020-08-01 11:11:55 2020-08-01 23:59:00 Hospital Encounter Griffin Guevara [facility] 1.20.114 350.1.13.10 4.2.7.2.686 [id number] [facility] 2020-08-01 11:04:16 2020-08-01 11:19:16 Laboratory Only Only, Adc Test Amaya Jensen [facility] 1.20.114 350.1.13.10 4.2.7.2.686 [id number] [facility] 2020-08-01 11:15:00 2020-08-01 11:15:00 Outpatient R GRUPO CROUCH [facility] [id number] [facility] 2020-08-01 10:54:32 2020-08-01 11:09:32 Tester Rocket Engine Visit Jena, Adc Lab Main [employer] [facility] 1.20.114 350.1.13.10 4.2.7.2.686 [id number] [facility] 2020-08-01 00:00:00 2020-08-01 00:00:00 Orders Only Doctor Unassigned, [place] [facility] 1.2840.114 350.1.13.10 4.2.7.2.686 [id number] [facility] 2020-08-01 00:00:00 2020-08-01 00:00:00 Telephone [employer] [facility] MULTISPEC IALTY CENTER AND [facility] 1.2.840.114 350.1.13.10 4.2.7.2.686 [id number] [facility] 2020-07-27 00:00:00 2020-07-27 00:00:00 Telephone Griffin Guevara [facility] 1.2.840.114 350.1.13.10 4.2.7.2.686 [id number] [facility] 2020-07-26 00:00:00 2020-07-26 00:00:00 Telephone [employer] [facility] MULTISPEC IALTY CENTER AND [facility] 1.2840.114 350.1.13.10 4.2.7.2.686 [id number] [facility] 2020-07-26 00:00:00 2020-07-26 00:00:00 Telephone Griffin Guevara [facility] 1.2840.114 350.1.13.10 4.2.7.2.686 [id number] [facility] 2020-07-16 00:00:00 2020-07-16 00:00:00 Jess Rosa [facility] 1.2.840.114 350.1.13.10 4.2.7.2.686 [id number] [facility] 2020-07-16 00:00:00 2020-07-16 00:00:00 Telephone Amena Veliz do [facility] MULTISPEC IALTY CENTER AND [facility] 1.2840.114 350.1.13.10 4.2.7.2.686 [id number] [facility] 2020-07-11 15:30:00 2020-07-11 15:30:00 Outpatient R JESS DOAN [facility] [id number] [facility] 2020-07-09 00:00:00 2020-07-09 00:00:00 Refill Denise Duke [facility] 1..114 350.1.13.10 4.2.7.2.686 [id number] [facility] 2020-06-27 00:00:00 2020-06-27 00:00:00 Telephone Griffin Guevara [facility] 1..114 350.1.13.10 4.2.7.2.686 [id number] [facility] 2020-06-27 00:00:00 2020-06-27 00:00:00 Telephone Jori Stewarteel [facility] MULTISPEC IALTY CENTER AND [facility] 1.114 350.1.13.10 4.2.7.2.686 [id number] [facility] 2020-06-26 09:15:17 2020-06-26 10:15:04 [facility] 1.114 350.1.13.10 4.2.7.2.686 [id number] [facility] 2020-06-26 09:45:00 2020-06-26 09:45:00 Outpatient AMENA LOMBARDI DO [facility] [id number] [facility] 2020-06-26 08:59:32 2020-06-26 09:14:32 Tester Rocket Engine Visit V[facility]-Lab Amena Veliz do [facility] MULTISPEC IALTY CENTER AND [facility] 1.114 350.1.13.10 4.2.7.2.686 [id number] [facility] 2020-06-26 00:00:00 2020-06-26 00:00:00 Orders Only Doctor Unassigned, [place] [facility] 1.840.114 350.1.13.10 4.2.7.2.686 [id number] [facility] 2020-06-21 13:00:00 2020-06-21 13:00:00 Outpatient ADAM SAUCEDA [facility] [id number] [facility] 2020-06-18 00:00:00 2020-06-18 00:00:00 [facility] 1.840.114 350.1.13.10 4.2.7.2.686 [id number] [facility] 2020-06-16 11:20:00 2020-06-16 11:20:00 Outpatient [facility] [id number] [facility] 2020-06-14 00:00:00 2020-06-14 00:00[facility]114 350.1.13.10 4.2.7.2.686 [id number] [facility] 2020-06-13 15:15:00 2020-06-13 15:15:00 Outpatient ADAM SAUCEDA [facility] [id number] [facility] 2020-06-12 13:30:00 2020-06-12 13:30:00 Outpatient JORI HUITRON [facility] [id number] [facility] 2020-06-11 00:00:00 2020-06-11 00:00:00 Telephone Yeison, [facility] 1.84.114 350.1.13.10 4.2.7.2.686 [id number] [facility] 2020-06-06 12:48:49 2020-06-06 23:59:00 Hospital Encounter Denise [facility] 1..840.114 350.1.13.10 4.2.7.2.686 [id number] [facility] 2020-06-06 00:00:00 2020-06-06 00:00:00 [facility] [id number] 2020-05-29 00:00:00 2020-05-29 00:00:00 Outpatient Roopa [facility] [id number] [facility] 2020-05-26 11:30:00 2020-05-26 11:30:00 Outpatient [facility] [id number] [facility] 2020-05-22 11:25:42 2020-05-22 12:07:27 Office Visit Griffin Guevara [facility] Profess[facility] 1..840.114 350.1.13.10 4.2.7.2.686 [id number] [facility] 2020-05-22 11:30:00 2020-05-22 11:30:00 Outpatient R GRIFFIN GUEVARA [facility] [id number] [facility] 2020-05-22 11:30:00 2020-05-22 11:30:00 Outpatient R GRIFFIN GUEVARA [facility] [id number] [facility] 2020-05-22 00:00:00 2020-05-22 00:00:00 Orders Only Doctor Unassigned, [place] [facility] 1..840.114 350.1.13.10 4.2.7.2.686 [id number] [facility] 2020-05-21 14:41:01 2020-05-21 15:35:03 Laboratory Only Pc, Adc Echo Room 1 - Griffin Guevara [facility] 1.840.114 350.1.13.10 4.2.7.2.686 [id number] [facility] 2020-05-21 15:00:00 2020-05-21 15:00:00 Outpatient R GRIFFIN GUEVARA [facility] [id number] [facility] 2020-05-21 13:00:00 2020-05-21 13:00:00 Outpatient R [facility] [id number] [facility] 2020-05-16 13:30:00 2020-05-16 13:30:00 Outpatient R JORI STEWART [facility] [id number] [facility] 2020-05-10 00:00:00 2020-05-10 00:00:00 Outpatient R DENISE DUKE [facility] [id number] [facility] 2020-05-08 00:00:00 2020-05-08 00:00:00 Orders Only Doctor Unassigned, [place] [facility] ..114 350.1.13.10 4.2.7.2.686 [id number] [facility] 2020-05-07 13:30:00 2020-05-07 13:30:00 Outpatient R ROHIT MARIN [facility] [id number] [facility] 2020-05-04 00:00:00 2020-05-04 00:00:00 Patient Secure M[facility] .840.114 350.1.13.10 4.2.7.2.686 [id number] [facility] 2020-05-02 09:54:04 2020-05-02 11:14:31 Office Visit Denise Duke [facility] 1.840.114 350.1.13.10 4.2.7.2.686 [id number] [facility] 2020-05-02 09:54:04 2020-05-02 11:14:31 [facility] 1.2840.114 350.1.13.10 4.2.7.2.686 [id number] 2020-05-02 10:00:00 2020-05-02 10:00:00 Outpatient R DENISE DUKE [facility] [id number] [facility] 2020-04-26 14:21:31 2020-04-26 23:59:00 Hospital Encounter Lynette Albrecht [facility] 1.0.114 350.1.13.10 4.2.7.2.686 [id number] [facility] 2020-04-26 13:19:17 2020-04-26 13:34:17 Office Visit Wilfrido Angulo [facility] 1..114 350.1.13.10 4.2.7.2.686 [id number] [facility] 2020-04-26 13:00:00 2020-04-26 13:00:00 Outpatient R TAYLA LATHAM JRRDO [facility] [id number] [facility] 2020-04-20 00:00:00 2020-04-20 00:00:00 Telephone Yeison [facility] 1..114 350.1.13.10 4.2.7.2.686 [id number] [facility] 2020-04-20 00:00:00 2020-04-20 00:00:00 Telephone Griffin Guevara [facility] Building 1.20.114 350.1.13.10 4.2.7.2.686 [id number] [facility] 2020-04-17 13:00:00 2020-04-17 23:59:00 Hospital Encounter Jess Doan [facility] 1.2.840.114 350.1.13.10 4.2.7.2.686 [id number] [facility] 2020-04-17 00:00:00 2020-04-17 00:00:00 Outpatient R JESS DOAN [facility] [id number] [facility] 2020-04-16 00:00:00 2020-04-16 00:00:00 Orders Only Doctor Unassigned, [place] [facility] 1.2.840.114 350.1.13.10 4.2.7.2.686 [id number] [id number] [facility] 2020-04-12 00:00:00 2020-04-12 00:00:00 Refill Denise [facility] 1.2.840.114 350.1.13.10 4.2.7.2.686 [id number] [facility] 2020-04-11 00:00:00 2020-04-11 00:00:00 Orders Only Doctor Unassigned, [place] [facility] 1.2840.114 350.1.13.10 4.2.7.2.686 [id number] [id number] [facility] 2020-04-09 11:10:00 2020-04-09 11:10:00 Outpatient R ROHIT MARIN [facility] [id number] [facility] 2020-04-05 15:00:00 2020-04-05 15:00:00 Outpatient R ROCIO JACKIE [facility] [id number] [facility] 2020-04-01 00:00:00 2020-04-01 00:00:00 [facility] 1.2840.114 350.1.13.10 4.2.7.2.686 [id number] [facility] 2020-03-27 00:00:00 2020-03-27 00:00:00 Orders Only Doctor Unassigned, [place] [facility] 1.2.840.114 350.1.13.10 4.2.7.2.686 [id number] [facility] 2020-03-20 00:00:00 2020-03-20 00:00:00 Telephone Nic Ho [facility] 1.2.840.114 350.1.13.10 4.2.7.2.686 [id number] [facility] 2020-03-19 00:00:00 2020-03-19 00:00:00 Telephone An Latham [facility] 1.2840.114 350.1.13.10 4.2.7.2.686 [id number] [facility] 2020-03-15 00:00:00 2020-03-15 00:00:00 Telephone [employer] 1.840.114 350.1.13.10 4.2.7.2.686 [id number] [facility] 2020-03-13 08:03:47 2020-03-13 12:08:35 Telemedici ne Visit Griffin Guevara [facility] 1.840.114 350.1.13.10 4.2.7.2.686 [id number] [facility] 2020-03-13 11:00:00 2020-03-13 11:00:00 Outpatient R GRIFFIN GUEVARA [facility] [id number] [facility] 2020-03-13 10:00:00 2020-03-13 10:00:00 Outpatient R JESS DOAN [facility] [id number] [facility] 2020-03-13 00:00:00 2020-03-13 00:00:00 Telephone Griffin GuevaraSuzanSandy [facility] Building 1..840.114 350.1.13.10 4.2.7.2.686 [id number] [facility] 2020-03-08 00:00:00 2020-03-08 00:00:00 Telephone Griffin Guevara [facility] 1.840.114 350.1.13.10 4.2.7.2.686 [id number] [facility] 2020-03-05 00:00:00 2020-03-05 00:00:00 Orders Only Doctor Unassigned, [place] [facility] 1.84.114 350.1.13.10 4.2.7.2.686 [id number] [id number] [facility] 2020-03-05 00:00:00 2020-03-05 00:00:00 Telephone Griffin Guevara [facility] 1..840.114 350.1.13.10 4.2.7.2.686 [id number] [facility] 2020-02-29 10:45:00 2020-02-29 10:45:00 Outpatient R AN LATHAM JR [facility] [id number] [facility] 2020-02-29 10:12:47 2020-02-29 10:27:47 Office Visit An Latham [facility] Building 1.2840.114 350.1.13.10 4.2.7.2.686 [id number] [facility] 2020-02-28 00:00:00 2020-02-28 00:00:00 Rafi Maravilla [facility] 1.2840.114 350.1.13.10 4.2.7.2.686 [id number] [facility] 2020-02-27 11:30:00 2020-02-27 11:30:00 Outpatient R GRIFFIN GUEVARA [facility] [id number] [facility] 2020-02-27 00:00:00 2020-02-27 00:00:00 Transition of Care Patrick [place] [facility] 1.2840.114 350.1.13.10 4.2.7.2.686 [id number] [facility] 2020-02-15 23:50:00 2020-02-23 18:05:00 Hospital Encounter An [place] [facility] 1.0.114 350.1.13.10 4.2.7.2.686 [id number] [facility] 2020-02-17 00:00:00 2020-02-17 00:00:00 Telephone Amena Veliz do [facility] 1.840.114 350.1.13.10 4.2.7.2.686 [id number] [facility] 2020-02-17 00:00:00 2020-02-17 00:00:00 Telephone Griffin Guevara [facility] 1.840.114 350.1.13.10 4.2.7.2.686 [id number] 059 [id number] [facility] 2020-02-15 22:02:49 2020-02-16 04:09:00 Emergency Lupeo r [facility] [id number] 00 Kon[facility]in [place] 2020-02-15 16:02:00 2020-02-15 22:09:00 Emergency JACKIE BREWER [facility]BL [address] [facility] 2020-02-13 00:00:00 2020-02-13 00:00:00 Case Management Pieter Otero [facility] 1.2.114 350.1.13.10 4.2.7.2.686 [id number] [facility] 2020-02-06 05:37:00 2020-02-09 16:57:00 Hospital Encounter An [place] [facility] 1.2840.114 350.1.13.10 4.2.7.2.686 [id number] [facility] 2020-02-06 00:00:00 2020-02-06 00:00:00 Orders Only Doctor Unassigned, [place] [facility] 1.2840.114 350.1.13.10 4.2.7.2.686 [id number] [facility] 2020-02-04 10:58:08 2020-02-04 11:13:08 Tester [employer]ocket [employer] Visit Pob, Adc Lab Main Nic Ho [facility] 1..114 350.1.13.10 4.2.7.2.686 [id number] [facility] 2020-02-04 09:00:00 2020-02-04 09:00:00 Outpatient NIC AVILES [facility] [id number] [facility] 2020-02-03 11:21:20 2020-02-03 11:36:20 Laboratory Only Only, Adc Test Amaya Jensen [facility] 1..114 350.1.13.10 4.2.7.2.686 [id number] [facility] 2020-02-03 11:00:00 2020-02-03 11:00:00 Outpatient AMAYA BUCKLEY [facility] [id number] [facility] 2020-02-03 00:00:00 2020-02-03 00:00:00 Telephone Nic Ho [facility] 1.114 350.1.13.10 4.2.7.2.686 [id number] [facility] 2020-01-31 12:57:19 2020-01-31 13:12:19 Tester Rocket Engine Visit Pob, Adc Lab Main Nic Ho [facility] Building 1..114 350.1.13.10 4.2.7.2.686 [id number] [facility] 2020-01-31 13:00:00 2020-01-31 13:00:00 Outpatient R AMBIKA [facility] [id number] [facility] 2020-01-31 00:00:00 2020-01-31 00:00:00 Orders Only Doctor Unassigned, [place] [facility] 1..114 350.1.13.10 4.2.7.2.686 [id number] [id number] [facility] 2020-01-30 13:10:00 2020-01-30 13:10:00 Outpatient R [facility] [id number] [facility] 2020-01-26 00:00:00 2020-01-26 00:00:00 Telephone [facility] 1.114 350.1.13.10 4.2.7.2.686 [id number] [id number] [facility] 2020-01-25 10:42:02 2020-01-25 13:26:36 Tester [employer]ocket [employer] Visit Pc, Adc Vascular Room 1 - Griffin Guevara [facility] 1.114 350.1.13.10 4.2.7.2.686 [id number] [facility] 2020-01-25 11:00:00 2020-01-25 11:00:00 Outpatient R [facility] [id number] [facility] 2020-01-25 00:00:00 2020-01-25 00:00:00 Orders Only Doctor Unassigned, [place] [facility] 1.20.114 350.1.13.10 4.2.7.2.686 [id number] [facility] 2020-01-24 09:45:02 2020-01-24 23:59:00 Hospital Encounter Nic Ho [facility] 1.2840.114 350.1.13.10 4.2.7.2.686 [id number] [facility] 2020-01-24 10:59:05 2020-01-24 11:59:05 Laboratory Only Pc, Adc Echo Room 1 - JimenezRafi Sendil [facility] 1.114 350.1.13.10 4.2.7.2.686 [id number] [facility] 2020-01-24 11:00:00 2020-01-24 11:00:00 Outpatient R [facility] [id number] [facility] 2020-01-24 09:42:09 2020-01-24 09:57:09 Tester Rocket [employer] Visit Pob, Adc Lab Main JimenezJonah riversjessica Pintof [facility] 1.114 350.1.13.10 4.2.7.2.686 [id number] [facility] 2020-01-23 00:00:00 2020-01-23 00:00:00 [facility] 1.20.114 350.1.13.10 4.2.7.2.686 [id number] [facility] 2020-01-19 15:30:00 2020-01-19 15:30:00 Outpatient R AN LATHAM JR [facility] [id number] [facility] 2020-01-19 14:30:22 2020-01-19 14:45:22 Office Visit YeisonAn [facility] 1.2.114 350.1.13.10 4.2.7.2.686 [id number] [facility] [id number] [facility] 2020-01-19 00:00:00 2020-01-19 00:00:00 Telephone Griffin Guevara [facility] Building 1.2.114 350.1.13.10 4.2.7.2.686 [id number] [facility] 2020-01-18 09:59:56 2020-01-18 23:59:00 Hospital Encounter Griffin Guevara Provider, [facility] Cardiac 2, [facility] Cardiac Proc Room [facility] 1..114 350.1.13.10 4.2.7.2.686 [id number] [facility] 2020-01-18 15:00:00 2020-01-18 15:00:00 Outpatient R GRIFFIN GUEVARA [facility] [id number] [facility] 2020-01-17 00:00:00 2020-01-17 00:00:00 Telephone Jack Msoeley [facility] ([facility]) 1.2.114 350.1.13.10 4.2.7.2.686 [id number] [facility] 2020-01-16 12:52:00 2020-01-16 13:07:00 Tester [employer]ocket Engine Visit Pob, Adc Lab Main Griffin Guevara [facility] Building 1.2.114 350.1.13.10 4.2.7.2.686 [id number] [facility] 2020-01-16 12:49:48 2020-01-16 13:04:48 Tester [employer]ocket [employer] Visit 1, Adc Lab Griffin GuevaraSandy [facility] 1.2.840.114 350.1.13.10 4.2.7.2.686 [id number] [facility] 2020-01-16 13:00:00 2020-01-16 13:00:00 Outpatient R CHELA GUEVARALOPEZ [facility] [id number] [facility] 2020-01-12 00:00:00 2020-01-12 00:00:00 Telephone [facility] 1.2.840.114 350.1.13.10 4.2.7.2.686 [id number] [facility] 2020-01-10 12:02:00 2020-01-10 12:17:00 Tester Rocket [employer] Visit Pob, Adc Lab Main Griffin [facility] 1.2.840.114 350.1.13.10 4.2.7.2.686 [id number] [facility] 2020-01-10 10:35:19 2020-01-10 11:43:59 Office Visit Paola Chelalopez [facility] 1.2.840.114 350.1.13.10 4.2.7.2.686 [id number] [facility] 2020-01-10 11:00:00 2020-01-10 11:00:00 Outpatient R GRIFFIN GUEVARA [facility] [id number] [facility] 2020-01-09 00:00:00 2020-01-09 00:00:00 Orders Only Doctor Unassigned, [place] [facility] 1.2.840.114 350.1.13.10 4.2.7.2.686 [id number] [facility] 2020-01-03 00:00:00 2020-01-03 00:00:00 Telephone Miko, [place] [facility] 1.0.114 350.1.13.10 4.2.7.2.686 [id number] [facility] 2019-12-15 00:00:00 2019-12-15 00:00:00 Telephone Amena Veliz do [facility] 1.2840.114 350.1.13.10 4.2.7.2.686 [id number] [facility] 2019-10-24 12:53:17 2019-10-24 20:27:02 Office Visit Rohit Marin [facility] 1..114 350.1.13.10 4.2.7.2.686 [id number] [facility] 2019-10-24 13:10:00 2019-10-24 13:10:00 Outpatient R ROHIT MARIN [facility] [id number] [facility] 2019-10-20 00:00:00 2019-10-20 00:00:00 Telephone [facility] 1..114 350.1.13.10 4.2.7.2.686 [id number] [facility] 2019-10-12 12:56:03 2019-10-12 13:44:36 Office Visit Jess Doan [facility] 1..114 350.1.13.10 4.2.7.2.686 [id number] [facility] 2019-10-12 13:00:00 2019-10-12 13:00:00 Outpatient R FRANKI [facility] [id number] [facility] 2019-09-29 00:00:00 2019-09-29 00:00:00 Telephone Amena Veliz do [facility] 1.2840.114 350.1.13.10 4.2.7.2.686 [id number] [facility] 2019-09-28 00:00:00 2019-09-28 00:00:00 Telephone Rohit Marin [facility] 1.2840.114 350.1.13.10 4.2.7.2.686 [id number] [facility] 2019-09-27 00:00:00 2019-09-27 00:00:00 Telephone Amena Veliz do [facility] 1.840.114 350.1.13.10 4.2.7.2.686 [id number] [facility] 2019-09-22 10:20:00 2019-09-22 10:20:00 Outpatient GRUPO BELLAMY [facility] [id number] [facility] 2019-09-22 06:42:14 2019-09-22 07:02:14 Telemedici ne Visit Amena Veliz do, Muhammad [facility] 1.840.114 350.1.13.10 4.2.7.2.686 [id number] [facility] 2019-09-14 10:19:00 2019-09-14 10:34:00 Tester Rocket Engine Visit 1, Adc Lab Matt Flores [facility] 1.840.114 350.1.13.10 4.2.7.2.686 [id number] [facility] 2019-09-14 10:15:00 2019-09-14 10:15:00 Outpatient R MATT FLORES [facility] [id number] [facility] 2019-09-14 00:00:00 2019-09-14 00:00:00 Orders Only Doctor Unassigned, [place] [facility] 1.2.840.114 350.1.13.10 4.2.7.2.686 [id number] [facility] 2019-08-30 00:00:00 2019-08-30 00:00:00 Telephone Doan [facility] Building 1.2.840.114 350.1.13.10 4.2.7.2.686 [id number] [facility] 2019-08-12 13:20:00 2019-08-12 13:20:00 Outpatient R ISAAC THOMPSON [facility] [id number] [facility] 2019-08-12 08:11:26 2019-08-12 08:21:26 Telemedici ne Visit Isaac Thompson [facility] 1.2840.114 350.1.13.10 4.2.7.2.686 [id number] [facility] 2019-07-16 00:00:00 2019-07-16 00:00:00 Case Management Rafi Gaona [facility] 1.2.840.114 350.1.13.10 4.2.7.2.686 [id number] [facility] 2019-07-08 00:00:00 2019-07-08 00:00:00 Telephone Doan, [facility] Building 1.2840.114 350.1.13.10 4.2.7.2.686 [id number] [facility] 2019-07-08 00:00:00 2019-07-08 00:00:00 Telephone Doan [facility] Building 1.2.840.114 350.1.13.10 4.2.7.2.686 [id number] [facility] 2019-07-04 00:00:00 2019-07-04 00:00:00 [facility] 1.2.840.114 350.1.13.10 4.2.7.2.686 [id number] [facility] 2019-06-09 00:00:00 2019-06-09 00:00:00 Telephone [facility] 1.840.114 350.1.13.10 4.2.7.2.686 [id number] [facility] 2019-06-09 00:00:00 2019-06-09 00:00:00 Refill Chan Jackie [facility] 1.840.114 350.1.13.10 4.2.7.2.686 [id number] [facility] 2019-06-07 00:00:00 2019-06-07 00:00:00 [facility]ill [facility] 1.2.840.114 350.1.13.10 4.2.7.2.686 [id number] [facility] 2019-06-06 00:00:00 2019-06-06 00:00:00 Refill Jm Dowell [facility] 1.2840.114 350.1.13.10 4.2.7.2.686 [id number] [facility] 2019-05-13 00:00:00 2019-05-13 00:00:00 Telephone Amena Veliz do [facility] 1.840.114 350.1.13.10 4.2.7.2.686 [id number] [facility] 2019-05-09 10:30:08 2019-05-09 11:48:04 Office Visit Rohit Marin [facility] 1.2.840.114 350.1.13.10 4.2.7.2.686 [id number] [facility] 2019-05-04 12:48:24 2019-05-04 13:25:[address] [facility] 1.2.840.114 350.1.13.10 4.2.7.2.686 [id number] [facility] 2019-04-22 00:00:00 2019-04-22 00:00:00 Telephone [facility] 1.2.840.114 350.1.13.10 4.2.7.2.686 [id number] [facility] 2019-04-21 00:00:00 2019-04-21 00:00:00 Telephone [facility] 1.2.840.114 350.1.13.10 4.2.7.2.686 [id number] [facility] 2019-04-20 08:47:37 2019-04-20 13:06:[address] [facility] 1.2.840.114 350.1.13.10 4.2.7.2.686 [id number] [facility] 2019-04-18 00:00:00 2019-04-18 00:00:00 Patient Secure Msg Frank[facility] 1.2.840.114 350.1.13.10 4.2.7.2.686 [id number] [facility] 2019-04-13 15:53:42 2019-04-13 16:54:00 Office Visit Franki [facility] Building 1.2.840.114 350.1.13.10 4.2.7.2.686 [id number] [facility] 2019-04-13 15:12:14 2019-04-13 15:27:14 Tester Rocket Engine Visit Pob, Adc Lab Main Jess Doan [facility] Building 1.2.840.114 350.1.13.10 4.2.7.2.686 [id number] [facility] 2019-04-13 00:00:00 2019-04-13 00:00:00 Orders Only Doctor Unassigned, [place] [facility] 1.2840.114 350.1.13.10 4.2.7.2.686 [id number] [facility] 2019-03-28 00:00:00 2019-03-28 00:00:00 Patient Secure Msg Franki [facility] Building 1.284.114 350.1.13.10 4.2.7.2.686 [id number] [facility] 2019-02-28 12:38:42 2019-02-28 23:59:00 Outpatient R FRANKI JESS [facility] [id number] [facility] 2018-12-17 00:00:00 2018-12-17 00:00:00 Telephone Keila Zelaya [facility] 1.2.840.114 350.1.13.10 4.2.7.2.686 [id number] [facility] 2018-12-16 00:00:00 2018-12-16 00:00:00 Telephone Broderick Reynolds [facility] 1.2.840.114 350.1.13.10 4.2.7.2.686 [id number] [facility] 2018-12-15 00:00:00 2018-12-15 00:00:00 Case Management Rafi Gaona [facility] 1.2.840.114 350.1.13.10 4.2.7.2.686 [id number] [facility] 2018-12-15 00:00:00 2018-12-15 00:00:00 Telephone Kaitlin Blank [facility] 1.2.840.114 350.1.13.10 4.2.7.2.686 [id number] [facility] 2018-12-14 00:00:00 2018-12-14 00:00:00 Prep For Surgery [facility] AT [facility] 1.2.840.114 350.1.13.10 4.2.7.2.686 [id number] [facility] 2018-12-14 00:00:00 2018-12-14 00:00:00 Case Management [facility] AT [facility] 1.2.840.114 350.1.13.10 4.2.7.2.686 [id number] [facility] 2018-12-14 00:00:00 2018-12-14 00:00:00 Telephone Grupo Crouch [facility]PEC [facility] 1.2.840.114 350.1.13.10 4.2.7.2.686 [id number] [facility] 2018-12-10 00:00:00 2018-12-10 00:00:00 Telephone [facility] 1.2.840.114 350.1.13.10 4.2.7.2.686 [id number] [facility] 2018-12-09 13:06:00 2018-12-09 17:29:00 Hospital Encounter [facility] ([facility]) 1.2.840.114 350.1.13.10 4.2.7.2.686 [id number] [facility] 2018-12-09 00:00:00 2018-12-09 00:00:00 Orders Only Doctor Unassigned, [place] [facility] 1.2.840.114 350.1.13.10 4.2.7.2.686 [id number] [facility] 2018-12-01 00:00:00 2018-12-01 00:00:00 Refill Madelaine-Crraegan millard, Amnea K N [facility] 1.0.114 350.1.13.10 4.2.7.2.686 [id number] [facility] 2018-12-01 00:00:00 2018-12-01 00:00:00 Telephone Jackie Chan [facility] 1.840.114 350.1.13.10 4.2.7.2.686 [id number] [facility] 2018-12-01 00:00:00 2018-12-01 00:00:00 Refill Jess Doan [facility] 1.840.114 350.1.13.10 4.2.7.2.686 [id number] [facility] 2018-11-28 00:00:00 2018-11-28 00:00:00 Refill Madelaine-Tommie do, Amena K [facility] 1.0.114 350.1.13.10 4.2.7.2.686 [id number] [facility] 2018-11-08 08:44:32 2018-11-08 08:59:32 Office Visit Devaughn Xie [facility] 1.2840.114 350.1.13.10 4.2.7.2.686 [id number] [facility] 2018-11-08 00:00:00 2018-11-08 00:00:00 Telephone Sanjeev Crouchd [facility] MULTISPEC IALTY [facility] 1.2840.114 350.1.13.10 4.2.7.2.686 [id number] [facility] 2018-11-08 00:00:00 2018-11-08 00:00:00 Telephone Jess Doan [facility] 1.2840.114 350.1.13.10 4.2.7.2.686 [id number] [facility] 2018-11-05 00:00:00 2018-11-05 00:00:00 Telephone Sanjeev Crouchd [facility] MULTISPEC IALTY [facility] 1.840.114 350.1.13.10 4.2.7.2.686 [id number] [facility] Results Test Description Test Time Test Comments Results Result Co mments Source [facility] [place] Jsw9180-63-57 10:01:11* Test Item Value Reference Range Interpretation Comme nts Hold Specimen (test code = 293) Hold for add-ons. Auto resulted. [facility] 12 vvkz7680-45-36 08:55:54* Test Item Value Reference Range Interpretation Comme nts Ventricular Rate (test code = 0310323901) BPM Atrial Rate (test code = 3876795983) BPM NM Interval (test code = 2042300325) 136 ms QRS Duration (test code = 1589892909) 82 ms QT/QTc (test code = 1532741086) 424 ms QTc Calculation (test code = 2841420575) 457 ms P-[place] (test code = 0969865757) degrees R-[place] (test code = 3367344497) degrees T-[place] (test code = 9031727057) degrees IMP (test code = IMP) PXN (test code = PXN) [facility] Oeqcauf5613-80-92 08:10:11* Test Item Value Reference Range Interpretation Comme nts POC Glu (test code = 8034710196) 271 mg/dL 70-99 H POC Glu Comment 1 (test code = 4586273694) Notified RN/MD POC Performing Location (jerica t code = 2970934958) [facility] Lab Interpretation (test cod e = 51132-5) Abnormal [facility] Krdsqlg2404-23-95 17:55:53* Test Item Value Reference Range Interpretation Comme nts POC Glu (test code = 4975984528) 231 mg/dL 70-99 H POC Performing Location (jerica t code = 6195735655) [facility] Lab Interpretation (test cod e = 56992-6) Abnormal [facility] Grorcfu7162-19-41 15:38:47* Test Item Value Reference Range Interpretation Comme nts POC Glu (test code = 3422027794) 288 mg/dL 70-99 H POC Performing Location (jerica t code = 4288355703) [facility] HE[facility] Lab Interpretation (test cod e = 81840-4) Abnormal [facility] Kbzeafb6764-53-75 12:59:13* Test Item Value Reference Range Interpretation Comme nts POC Glu (test code = 7917216809) 209 mg/dL 70-99 H POC Performing Location (jerica t code = 9249671815) [facility] HE[facility] Lab Interpretation (test cod e = 64843-1) Abnormal [facility] Ywomqyq0337-74-28 08:07:21* Test Item Value Reference Range Interpretation Comme nts POC Glu (test code = 1386745530) 268 mg/dL 70-99 H POC Performing Location (jerica t code = 1789757457) [facility] HE[facility] Lab Interpretation (test cod e = 29836-9) Abnormal [facility] Orbdzpp6253-74-64 05:41:42* Test Item Value Reference Range Interpretation Comme nts POC Glu (test code = 8149357195) 108 mg/dL 70-99 H POC Glu Comment 1 (test code = 7895651453) Notified RN/MD POC Performing Location (jerica t code = 8286927635) [facility] HE[facility] Lab Interpretation (test cod e = 71686-6) Abnormal [facility] Fgehsgn9374-04-30 17:23:44* Test Item Value Reference Range Interpretation Comme nts POC Glu (test code = 7127025682) 432 mg/dL 70-99 HH POC Glu Comment 1 (test code = 9826073370) Notified RN/MD POC Performing Location (jerica t code = 5720296255) [facility] HE[facility] Lab Interpretation (test cod e = 22461-7) Abnormal [facility] Bekqjaw4282-47-42 15:38:51* Test Item Value Reference Range Interpretation Comme nts POC Glu (test code = 2312902726) 387 mg/dL 70-99 H POC Performing Location (jerica t code = 3413295606) [facility]5 HEART Lab Interpretation (test cod e = 51980-1) Abnormal [facility] Bgweuec8241-96-97 11:48:13* Test Item Value Reference Range Interpretation Comme nts POC Glu (test code = 9326619733) 207 mg/dL 70-99 H POC Performing Location (jerica t code = 2971791226) HV5 HEART Lab Interpretation (test cod e = 98960-2) Abnormal [facility] ([facility]) azjokhv1458-05-38 10:53:37* Test Item Value Reference Range Interpretation Comme nts BSA (test code = 3571621664) 1.55 m2 LV est EF (test code = 5925908613) 30 % LVIDd (test code = 0181684437) 38 mm LVIDs (test code = 3219692192) 33 mm LV ESV 2D (test code = 4830311) 44.1 mL LV EDV 2D (test code = 2395813) 63.1 mL IVSd (test code = 2076131942) 9 mm LVPWd (test code = 3118261292) 10 mm Fractional Shortening 2D (test code = 8471170362) 14 % MV E pk noam (test code = 9259486837) 0.65 m/s MV A pk noam (test code = 7609613088) 0.96 m/s MV E/A ratio (test code = 1782365694) MV DT (test code = 3255075392) 224 ms MV PHT (test code = 4747814012) 66 ms MV area PHT (test code = 7317240198) 3.33 cm2 IVSd 2D (test code = 0557429) 9.840845803938584 cm Radiology Study observation (narrative) (test code = 22028-7) AMELIA (test code = AMELIA) [facility] Adfvkqq5390-89-33 08:16:26* Test Item Value Reference Range Interpretation Comme nts POC Glu (test code = 0810992376) 138 mg/dL 70-99 H POC Performing Location (jerica t code = 5714340888) [facility]5 HEART Lab Interpretation (test cod e = 30605-6) Abnormal [facility] Ugjuggr1607-44-52 23:21:28* Test Item Value Reference Range Interpretation Comme nts POC Glu (test code = 3556288439) 177 mg/dL 70-99 H POC Performing Location (jerica t code = 7501593241) [facility]5 HEART Lab Interpretation (test cod e = 74516-7) Abnormal [facility] Rgykaze0133-67-49 18:09:09* Test Item Value Reference Range Interpretation Comme nts POC Glu (test code = 9378799525) 288 mg/dL 70-99 H POC Glu Comment 1 (test code = 4768023541) Notified RN/MD POC Performing Location (jerica t code = 3157013833) [facility]5 HEART Lab Interpretation (test cod e = 07480-0) Abnormal [facility] Mtqynbd8765-39-74 12:21:03* Test Item Value Reference Range Interpretation Comme nts POC Glu (test code = 1964218854) 362 mg/dL 70-99 H POC Glu Comment 1 (test code = 5739015199) Notified RN/MD POC Performing Location (jerica t code = 3469931698) [facility]5 HEART Lab Interpretation (test cod e = 57658-2) Abnormal [facility] Alaqgso9422-07-76 08:26:33* Test Item Value Reference Range Interpretation Comme nts POC Glu (test code = 6084437809) 218 mg/dL 70-99 H POC Glu Comment 1 (test code = 2051989506) Notified RN/MD POC Performing Location (jerica t code = 3068935444) HV5 HEART Lab Interpretation (test cod e = 40911-8) Abnormal [facility] Fshnmbg3618-05-48 01:00:18* Test Item Value Reference Range Interpretation Comme nts POC Glu (test code = 9786226271) 142 mg/dL 70-99 H POC Performing Location (jerica t code = 9203442703) [facility]5 HEART Lab Interpretation (test cod e = 70480-8) Abnormal [facility] Vjunrth6454-64-79 00:31:51* Test Item Value Reference Range Interpretation Comme nts POC Glu (test code = 7173820840) 40 mg/dL 70-99 LL POC Glu Comment 1 (test code = 0837311023) Notified RN/MD POC Glu Comment 2 (test code = 3599285503) Cleaned Meter POC Performing Location (jerica t code = 6266846485) [facility]5 HEART Lab Interpretation (test cod e = 46870-3) Abnormal [facility] Zycgftc8788-68-74 17:53:09* Test Item Value Reference Range Interpretation Comme nts POC Glu (test code = 4917893500) 233 mg/dL 70-99 H POC Performing Location (jerica t code = 2931783769) HV5 HEART Lab Interpretation (test cod e = 31986-6) Abnormal [facility] Ukgsemo6645-10-10 12:36:24* Test Item Value Reference Range Interpretation Comme nts POC Glu (test code = 5479560918) 279 mg/dL 70-99 H POC Performing Location (jerica t code = 2502591817) HV5 HEART Lab Interpretation (test cod e = 47783-7) Abnormal [facility] Hhwdhqc1743-91-72 09:05:55* Test Item Value Reference Range Interpretation Comme nts POC Glu (test code = 2608220757) 229 mg/dL 70-99 H POC Glu Comment 1 (test code = 4017994725) Notified RN/MD POC Performing Location (jerica t code = 9936869107) [facility]5 HEART Lab Interpretation (test cod e = 06930-3) Abnormal [facility] Ltljgfs0759-00-68 09:05:40* Test Item Value Reference Range Interpretation Comme nts POC Glu (test code = 2191426259) 62 mg/dL 70-99 L POC Glu Comment 1 (test code = 2241812614) Notified RN/MD POC Performing Location (jerica t code = 0319671367) [facility]5 HEART Lab Interpretation (test cod e = 87317-7) Abnormal [facility] Activated Clotting Sitf4959-88-04 06:48:44* Test Item Value Reference Range Interpretation Comme nts POC Activated Clotting Time (test code = 239) seconds POC Performing Location (jerica t code = 5611929705) HV2 CATH [facility] Activated Clotting Hbzf9422-15-31 06:48:44* Test Item Value Reference Range Interpretation Comme nts POC Activated Clotting Time (test code = 239) seconds POC Performing Location (jerica t code = 0707458782) HV2 CATH [facility] Jpfaaep3955-17-73 20:45:18* Test Item Value Reference Range Interpretation Comme nts POC Glu (test code = 8836163568) 255 mg/dL 70-99 H POC Performing Location (jerica t code = 6422011740) HV8 CVIMU Lab Interpretation (test cod e = 55047-4) Abnormal [facility] Pqtiuch6060-02-38 16:43:51* Test Item Value Reference Range Interpretation Comme nts POC Glu (test code = 9498523981) 222 mg/dL 70-99 H POC Performing Location (jerica t code = 5162031125) HV8 CVICU Lab Interpretation (test cod e = 15919-4) Abnormal [facility] EpicECG 12 gdyp9910-36-23 13:43:02* Test Item Value Reference Range Interpretation Comme nts Ventricular Rate (test code = 7860034161) BPM Atrial Rate (test code = 9047748006) BPM NM Interval (test code = 0287354361) 136 ms QRS Duration (test code = 9222075152) 78 ms QT/QTc (test code = 5001591156) 408 ms QTc Calculation (test code = 6246983750) 446 ms P-[place] (test code = 2826113888) degrees R-[place] (test code = 0638948961) degrees T-[place] (test code = 3315070846) degrees IMP (test code = IMP) PXN (test code = PXN) [facility] EpicElectrocardiogram, 86-wctr6578-47-09 13:28:01* Test Item Value Reference Range Interpretation Comme nts Ventricular Rate (test code = 7763080972) BPM Atrial Rate (test code = 3979310102) BPM NM Interval (test code = 8259602016) 146 ms QRS Duration (test code = 8991348474) 80 ms QT/QTc (test code = 7832043811) 418 ms QTc Calculation (test code = 6908744888) 463 ms P-[place] (test code = 2759298017) degrees R-[place] (test code = 1635332833) degrees T-[place] (test code = 5604578898) degrees IMP (test code = IMP) PXN (test code = PXN) [facility] Bksnpud0189-82-46 11:33:18* Test Item Value Reference Range Interpretation Comme nts POC Glu (test code = 5467610594) 145 mg/dL 70-99 H POC Performing Location (jerica t code = 0748145024) HV8 CVICU Lab Interpretation (test cod e = 70688-0) Abnormal [facility] Activated Clotting Npnv3526-45-53 09:41:11* Test Item Value Reference Range Interpretation Comme nts POC Activated Clotting Time (test code = 239) seconds POC Performing Location (jerica t code = 9646520793) [facility] CVU [facility] Kolqk2603-05-21 08:49:27* Test Item Value Reference Range Interpretation Comments Tacrolimus Lvl (test code = 61942-9) 4 ng/mL 5.0-15.0 L The tacrolimus l evel assay is a chemiluminescent microparticleimmunoassay for the quantitative determination of tacrolimus levelin human whole blood on the Proberry system. The reportedtherapeutic range is derived from the literature; it has not been validated for this laboratory and patient population and therefore should be used with caution. Optimal blood tacrolimus levels are influenced by a number of factors, including clinical state, type of transplant, and time post-transplant. Physicians should interpretthis test result based on the clinical evaluation of the patient. Lab Interpretation (test code = 68437-6) Abnormal [facility] Vojhbws7449-31-82 07:26:38* Test Item Value Reference Range Interpretation Comme nts POC Glu (test code = 5555801485) 181 mg/dL 70-99 H POC Performing Location (jerica t code = 1643253227) HV8 CVICU Lab Interpretation (test cod e = 53354-2) Abnormal [facility] Bvfdyvp2257-96-87 15:49:15* Test Item Value Reference Range Interpretation Comme nts POC Glu (test code = 5906838115) 250 mg/dL 70-99 H POC Performing Location (jerica t code = 1241211732) HV8 CVICU Lab Interpretation (test cod e = 02750-7) [facility] jrondqfi7008-99-85 15:04:20* Test Item Value Reference Range Interpretation Comme nts LA Vol I (A4C) BSA (test code = 9021225449) 21.4 ml/m2 LA Vol I BSA (test code = 4449261019) 14.6 ml/m2 LVOT Vmax/AV Vmax (test code = 6994992025) 0.6 {ratio} Ao Root diam diastole (test code = 1249454627) 27 mm LVOT Vmean (test code = 6677744569) 0.51 m/s LV SV (A4C) (test code = 4754170642) 17.2 ml LV SI (A2C) (test code = 7714839794) 34 ml LV SV (BP) (test code = 4330743591) 26.7 ml LV SI (A4C) (test code = 6415241045) 11.7 ml/m2 LV SI (A2C) (test code = 0337238650) 23.1 ml/m2 LV SI (BP) (test code = 6036561696) 18.2 ml/m2 LVLs (A4C) (test code = 2682208955) 54.3 mm LVLs (A2C) (test code = 1653972839) 54.8 mm LVLd (A4C) (test code = 1398007659) 62.9 mm LVLd (A2C) (test code = 1415444367) 61.5 mm PV mn noam (test code = 3088587636) 0.49 m/s LV ESV A2C (test code = 1611990229) 22.3 mL LV EDV A4C (test code = 2707750404) 52.6 mL LA area A4C (test code = 4240252022) 14.3 cm2 LA area A2C (test code = 5434335286) 10.6 cm2 LV ESV A4C (test code = 6320993605) 35.4 mL LV EDV A2C (test code = 2286195257) 56.3 mL TR pk grad (test code = 8562079251) mmHg TAPSE (test code = 0140255274) 13 mm LA ESV A2C (test code = 5070915896) 21.5 mL LA ESV A4C (test code = 6448220615) 21.5 mL LV est EF (test code = 3942287668) 15 % LV EDV BP (test code = 8556007878) 54.9 mL LV ESV BP (test code = 4199176862) 28.2 mL MV A pk noam (test code = 4063227734) 0.67 m/s MV E pk noam (test code = 0142346069) 0.85 m/s PV mn grad (test code = 0996681581) mmHg AV pk grad (test code = 2312843461) mmHg LV stroke vol (test code = 4526094067) 30 ml AV VTI (test code = 5571227919) 27 cm AV pk noam (test code = 2596008988) 1.31 m/s LVOT VTI (test code = 8278156595) 15 cm LVOT pk noam (test code = 8518712826) 0.79 m/s LVOT area (test code = 7206731382) 2.01 cm2 LVOT diam (test code = 0237919672) 16 mm MV DT (test code = 5503488916) 183 ms MV e' lateral noam (test code = 7201726337) 11.2 cm/s MV E/A ratio (test code = 3181359647) PV pk grad (test code = 0836973735) mmHg LVOT pk grad (test code = 3848025202) mmHg AV mn grad (test code = 3294206337) mmHg MV E/e' septal (test code = 0536501912) TR pk noam (test code = 1868847025) 2.37 m/s AV area pk noam (test code = 0108731294) 1.22 cm2 AV area cont VTI (test code = 3794345500) 1.12 cm2 LVOT mn grad (test code = 1809016691) mmHg LV A4C EF (test code = 1284462595) 33 % LV A2C EF (test code = 8234463303) 60 % AV mn noam (test code = 0528377218) 0.9 m/s LVPWd (test code = 9783329714) 9 mm LA size (test code = 0906685195) 28 mm Ascending aorta (test code = 9393846155) 29 mm LV biplane EF (test code = 5654345424) 48.6 % Fractional Shortening 2D (test code = 5361215851) 6 % LVIDs (test code = 5820888345) 31 mm IVSd (test code = 0025301636) 11 mm LVIDd (test code = 2871126000) 33 mm PV pk noam (test code = 6274479080) 0.68 m/s PV VTI (test code = 2620865) 15.5 cm MV E/e' lateral (test code = 5185415) MV e' septal noam (test code = 3923435) 5.44 cm/s LV ESV 2D (test code = 7554150) 38.8 mL LV EDV 2D (test code = 6650197) 45.4 mL IVSd 2D (test code = 9689641) 11.176356879327312 cm BSA (test code = 8820245936) 1.54 m2 RVSP (test code = 2247028) mmHg Radiology Study observation (narrative) (test code = 07106-6) AMELIA (test code = AMELIA) [facility] Qeawgpe8169-13-52 12:01:53* Test Item Value Reference Range Interpretation Comme nts POC Glu (test code = 8738860857) 222 mg/dL 70-99 H POC Performing Location (jerica t code = 7784791799) HV8 CVICU Lab Interpretation (test cod e = 20444-9) Abnormal [facility] Center[facility]ac[facility], Btcug7966-48-32 14:57:48* Test Item Value Reference Range Interpretation Comme nts FK 506 (test code = 5896626929) 5 ng/mL AMELIA (test code = AMELIA) Target/Therapeutic Range KIDNEY ? Early (<3 mo) ? ? 8-12 ? Late ?(>3 mo) ? ? 5-10 ?SPK / MONICA ? Early (<3 mo) ? ? 10-15 ? Mid ? (3-6 mo) ? ?8-10 ? Late ?(>6 mo) ? ? 5-8 ?LIVER ? Early (<3 mo) ?HCV: ? 5-7 ?Tumor: ? ? ? 5-7 ?Autoimmune: ?8-10 ? Late (>3 mo) ? ? ?~5 ?HEART ? Early (<6 mo) ? ? 12-15 ? Late ?(>6 mo) ? ? 8-12 ?LUNG ? Early (<6 mo) ? ? 12-15 ? Mid ? (7-12 mo) ? 10-15 ? Late ?(>12 mo) ? ?8-10 Method by: ?Chemiflex, Meteorological Aide i1000 [facility] with Mdkgvsxvkgeg5496-35-89 22:59:24* Test Item Value Reference Range Interpretation [...] 32.6 g/dL 31.6-35.1 RDW-SD (test code = 79876-5) 47.9 fL 39.0-49.9 RDW-CV (test code = 788-0) 13.4 % 12.0-15.5 PLT (test code = 777-3) 221 166-358 MPV (test code = 68061-6) 9.7 fL 9.5-12.9 IPF % (test code = 2128095072) 1.3 % 1.3-7.7 Platelet count measured by fluorescence method. NRBC/100 WBC (test code = 3835182010) 0.0 0.0-10.0 NRBC x10^3 (test code = 8869453027) See_Comment [Automated messa ge] The system which generated this result transmitted reference range: 10*3/?L. The reference range was not used to interpret this result as normal/abnormal. GRAN MAT (NEUT) % (test code = 770-8) 56.8 % IMM GRAN % (test code = 7606229384) 0.50 % LYMPH % (test code = 736-9) 31.6 % MONO % (test code = 5905-5) 9.8 % EOS % (test code = 713-8) 0.8 % BASO % (test code = 706-2) 0.5 % GRAN MAT x10^3(ANC) (test code = 6456029809) 3.60 10*3/uL 1.88-7.09 IMM GRAN x10^3 (test code = 6889026629) 0.03 10*3/uL 0.00-0.06 LYMPH x10^3 (test code = 731-0) 2.00 10*3/uL 1.32-3.29 MONO x10^3 (test code = 742-7) 0.62 10*3/uL 0.33-0.92 EOS x10^3 (test code = 711-2) 0.05 10*3/uL 0.03-0.39 BASO x10^3 (test code = 704-7) 0.03 10*3/uL 0.01-0.07 Lab Interpretation (test code = 41463-7) [facility]normal [facility] Lhljb3823-37-74 21:39:59* Test Item Value Reference Range Interpretation Comme nts MAGNESIUM (test code = 8224993512) 1.7 mg/dL 1.7-2.4 Lab Interpretation (test cod e = 10131-9) Normal [facility] Metabolic Panel (NA, K, CL, CO2, Glucose, BUN, Creatinine, CA)2024-05-03 21:39:38* Test Item Value Reference Range Interpretation Comme nts NA (test code = 3101956672) 140 mmol/L 135-145 K (test code = 8946745120) 4.4 mmol/L 3.5-5.0 CL (test code = 7109012107) 107 mmol/L 98-108 CO2 TOTAL (test code = 9943816026) 27 mmol/L 23-31 AGAP (test code = 5821479090) 6 2-16 BUN (test code = 6005004539) 22 mg/dL 7-23 GLUCOSE (test code = 8404527522) 143 mg/dL 70-110 H CREATININE (test code = 2160-0) 0.68 mg/dL 0.50-1.04 CALCIUM (test code = 9570245673) 9.7 mg/dL 8.6-10.6 eGFR (test code = 38659-5) 99.2 mL/min/1.73m2 CKD-EPI eGFR (2020). Assuming creatinine has been stable day-to-day for at least three months, the eGFR indicates Category G1 (>= 90 mL/min/1.73 m2) Lab Interpretation (test code = 43707-3) Abnormal [facility]cos[facility]osphorus Lcpch3591-04-77 21:39:17* Test Item Value Reference Range Interpretation Comme nts PHOSPHORUS (test code = 9133840259) 3.1 mg/dL 2.5-5.0 Lab Interpretation (test cod e = 79901-8) Normal [facility]cosDIABETES TESTING WCVWQLJ0934-98-00 15:58:54 Ordered by an unspecified provider.[facility] Hemoglobin A1C Fvhx6936-04-31 17:01:00* Test Item Value Reference Range Interpretation Comme nts POCT HBA1C (test code = 4548-4) 9.9 % 4-6 A Lab Interpretation (test cod e = 02064-5) Abnormal [facility]CT HEAD WO QRSFUWLD5563-98-41 21:20:49CT HEAD WO CONTRAST HISTORY: Female 58 [...] air cells andvisualized paranasal air sinuses are clear.[facility]cosXR CHEST 1 SP0648-57-80 03:51:14ORDERING PHYSICIAN: ? MOHIT ?DILIP HISTORY: Chest Pain ? COMPARISON: 09/23/2023 FINDINGS: Single frontal view of the chest. Heart is normal in size. ?There is no pulmonary edema. There are no focalareas of consolidation. There is no pneumothorax. ?There are no pleuraleffusions. Osseous structures are unremarkable. ? Please note that chest radiography is not a sensitive modality for thedetection of masses.[facility]PO[facility] GLUCOSE (AUTOMATED)2023-11-24 03:29:15* Test Item Value Reference Range Interpretation Comme [facility] POCT GLU (test code = 3266217051) 316 mg/dL 70-110 H Lab Interpretation (test cod e = 52928-9) Abnormal [facility]cosTroponin B9445-56-44 03:15:32* Test Item Value Reference Range Interpretation Comme nts TROPONIN I (test code = 7303790344) 0.004 ng/mL <=0.034 AMELIA (test code = [...] of biotin. Lab Interpretation (test code = 42930-6) Normal [facility]Ac[facility] Venous Blood Yvu5150-80-46 03:00:54 * Test Item Value Reference Range Interpretation Comme nts PH (test code = 0859452903) 7.41 7.32-7.42 PCO2 TESSA (test code = 4412114369) 39 41-51 L PO2 TESSA (test code = 2152299230) 50 25-40 H HCO3 TESSA (test code = 1548120062) 24 24-28 AC VBE(BEAKER) (test code = 2683354269) -0.1 mEq/L Lab Interpretation (test cod e = 96029-1) Abnormal [facility] GLU[facility] (AUTOMATED)2023-11-24 02:59:48* Test Item Value Reference Range Interpretation Comme nts POCT GLU (test code = 6621584956) 346 mg/dL 70-110 H Lab Interpretation (test cod e = 78171-8) Abnormal [facility]cosComp. Metabolic Panel (99956)2023-11-24 02:50:52* Test Item Value Reference Range Interpretation Comme nts NA (test code = 0480450411) 132 mmol/L 135-145 L K (test code = 2888519211) 3.9 mmol/L 3.5-5.0 CL (test code = 4857331866) 99 mmol/L 98-108 CO2 TOTAL (test code = 1573691191) 26 mmol/L 23-31 AGAP (test code = 4169436316) 7 2-16 BUN (test code = 6433371455) 25 mg/dL 7-23 H GLUCOSE (test code = 9926204992) 390 mg/dL 70-110 H CREATININE (test code = 2160-0) 1.04 mg/dL 0.50-1.04 TOTAL BILI (test code = 7692485844) 0.7 mg/dL 0.1-1.1 CALCIUM (test code = 1980091816) 9.6 mg/dL 8.6-10.6 T PROTEIN (test code = 5020420036) 7.0 g/dL 6.3-8.2 ALBUMIN (test code = 3462386950) 3.8 g/dL 3.5-5.0 ALK PHOS (test code = 4045276641) 69 U/L 34-122 ALTv (test code = 1742-6) 21 U/L 5-35 AST(SGOT) (test code = 9897356845) 24 U/L 13-40 eGFR (test code = 85596-8) 61.7 mL/min/1.73m2 CKD-EPI eGFR (2020). Assuming creatinine has been stable day-to-day for at least three months, the eGFR indicates Category G2 (60 - 89 mL/min/1.73 m2) Lab Interpretation (test code = 56618-4) Abnormal [facility] with Zeud3557-63-26 02:33:51* Test Item Value Reference Range Interpretation [...] 33.0 g/dL 31.6-35.1 RDW-SD (test code = 71353-2) 49.3 fL 39.0-49.9 RDW-CV (test code = 788-0) 14.0 % 12.0-15.5 PLT (test code = 777-3) 182 166-358 MPV (test code = 19509-9) 9.2 fL 9.5-12.9 L NRBC/100 WBC (test code = 0723761984) 0.0 0.0-10.0 NRBC x10^3 (test code = 1129742856) See_Comment [Automated messa ge] The system which generated this result transmitted reference range: 10*3/?L. The reference range was not used to interpret this result as normal/abnormal. GRAN MAT (NEUT) % (test code = 770-8) 56.6 % IMM GRAN % (test code = [id number]) 0.40 % LYMPH % (test code = 736-9) 33.0 % MONO % (test code = 5905-5) 9.4 % EOS % (test code = 713-8) 0.3 % BASO % (test code = 706-2) 0.3 % GRAN MAT x10^3(ANC) (test code = [id number]) 4.16 10*3/uL 1.88-7.09 IMM GRAN x10^3 (test code = [id number]) 0.03 10*3/uL 0.00-0.06 LYMPH x10^3 (test code = 731-0) 2.42 10*3/uL 1.32-3.29 MONO x10^3 (test code = 742-7) 0.69 10*3/uL 0.33-0.92 EOS x10^3 (test code = 711-2) 0.03-0.39 L BASO x10^3 (test code = 704-7) 0.01-0.07 Lab Interpretation (test code = 77307-6) Abnormal [facility] GLUCOSE (AUTOMATED)2023-11-24 01:16:17* Test Item Value Reference Range Interpretation Comme nts POCT GLU (test code = 0390872942) 351 mg/dL 70-110 H Lab Interpretation (test cod e = 83071-3) Abnormal [facility] Hemoglobin A1C [id number] 16:59:00* Test Item Value Reference Range Interpretation Comme nts POCT HBA1C (test code = 4548-4) 9.9 % 4-6 A Lab Interpretation (test cod e = 50136-1) Abnormal [facility] ULTRASOUND BREAST COMPLETE [id number] 21:44:11Examination:BI DIAGNOSTIC TOMOSYNTHESIS BILATERALBI ULTRASOUND BREAST COMPLETE [...] of clinical evaluation. BI-RADS Category:Both 2 - [facility]ST[facility]THES[facility] [id number] 21:44:11Examination:BI DIAGNOSTIC TOMOSYNTHESIS BILATERALBI ULTRASOUND BREAST COMPLETE [...] of clinical evaluation. BI-RADS Category:Both 2 - [facility]Un[facility]2023-09-23 17:24:46* Test Item Value Reference Range Interpretation Comme nts POCT GLU (test code = 5702522537) 265 mg/dL 70-110 H Lab Interpretation (test cod e = 04234-8) Abnormal [facility]rop[facility] [id number] 16:38:08* Test Item Value Reference Range Interpretation Comme nts TROPONIN I (test code = 5274880839) 0.005 ng/mL <=0.034 AMELIA (test code = [...] of biotin. Lab Interpretation (test code = 02213-8) Normal [facility]cosN-Terminal Icg-[id number] 16:35:28* Test Item Value Reference Range Interpretation Comme nts NT-proBNP (test code = 24634-5) 335 pg/mL <=125 AMELIA (test code = AMELIA) Result Indeterminate-Consid er causes of NT-proBNP elevation other than Heart failure such as acute coronary syndrome, pulmonary embolism, pulmonary hypertension, sepsis, stroke, and renal dysfunction. Lab Interpretation (test code = 28991-1) Abnormal [facility]cosMagnesium2024-06-26 16:28:08* Test Item Value Reference Range Interpretation Comme nts MAGNESIUM (test code = 7013313839) 1.8 mg/dL 1.7-2.4 Lab Interpretation (test cod e = 10474-4) Normal [facility]cosComp. Metabolic Panel (10210)2023-09-23 16:27:47* Test Item Value Reference Range Interpretation Comme nts NA (test code = 5241997255) 133 mmol/L 135-145 L K (test code = 5322181357) 3.8 mmol/L 3.5-5.0 CL (test code = 2110256119) 100 mmol/L 98-108 CO2 TOTAL (test code = 5264396733) 22 mmol/L 23-31 L AGAP (test code = 1423978197) 11 2-16 BUN (test code = 7917760619) 11 mg/dL 7-23 GLUCOSE (test code = 0752475856) 344 mg/dL 70-110 H CREATININE (test code = 2160-0) 0.64 mg/dL 0.50-1.04 TOTAL BILI (test code = 5541162693) 0.9 mg/dL 0.1-1.1 CALCIUM (test code = 2622372169) 9.8 mg/dL 8.6-10.6 T PROTEIN (test code = 1181781478) 7.3 g/dL 6.3-8.2 ALBUMIN (test code = 1475416473) 4.1 g/dL 3.5-5.0 ALK PHOS (test code = 1028927523) 104 U/L 34-122 ALTv (test code = 1742-6) 22 U/L 5-35 AST(SGOT) (test code = 4236752866) 35 U/L 13-40 eGFR (test code = 21150-0) 101.3 mL/min/1.73m2 CKD-EPI eGFR (2020). Assuming creatinine has been stable day-to-day for at least three months, the eGFR indicates Category G1 (>= 90 mL/min/1.73 m2) Lab Interpretation (test code = 18429-5) [facility]normal [id number] 16:23:27* Test Item Value Reference Range Interpretation [...] 32.2 g/dL 31.6-35.1 RDW-SD (test code = 75889-0) 46.0 fL 39.0-49.9 RDW-CV (test code = 788-0) 13.3 % 12.0-15.5 PLT (test code = 777-3) 195 166-358 MPV (test code = 87899-5) 9.0 fL 9.5-12.9 L NRBC/100 WBC (test code = 4384489551) 0.0 0.0-10.0 NRBC x10^3 (test code = 0027365450) See_Comment [Automated messa ge] The system which generated this result transmitted reference range: 10*3/?L. The reference range was not used to interpret this result as normal/abnormal. GRAN MAT (NEUT) % (test code = 770-8) 61.7 % IMM GRAN % (test code = 1644484489) 0.30 % LYMPH % (test code = 736-9) 25.8 % MONO % (test code = 5905-5) 10.6 % EOS % (test code = 713-8) 1.1 % BASO % (test code = 706-2) 0.5 % GRAN MAT x10^3(ANC) (test code = 0240613465) 4.06 10*3/uL 1.88-7.09 IMM GRAN x10^3 (test code = 0934752595) 0.00-0.06 LYMPH x10^3 (test code = 731-0) 1.70 10*3/uL 1.32-3.29 MONO x10^3 (test code = 742-7) 0.70 10*3/uL 0.33-0.92 EOS x10^3 (test code = 711-2) 0.07 10*3/uL 0.03-0.39 BASO x10^3 (test code = 704-7) 0.03 10*3/uL 0.01-0.07 Lab Interpretation (test code = 07105-9) Abnormal [facility] CHEST 1 [id number] 15:23:47HISTORY: Dizziness. TECHNIQUE: Portable AP view of [...] upper abdomen. CONCLUSIONS: Nosigns of acute cardiopulmonary disease.[facility] Urinalysis W Specific [place] 2023-09-23 14:21:00* Test Item Value Reference Range [...] internal controls Lab Interpretation (test code = 59964-9) Abnormal [facility] ABDOMEN PELVIS WO [id number] 03:09:46ABDOMEN AND PELVIS CT WITHOUT ?INTRAVENOUS CONTRAST. CLINICAL INDICATIONS: ? Epigastric pain Ordering Physician: JUSTINA MELENDEZ TECHNIQUE: ?Axial computed tomographic images [...] normal. There is advanced atrophy of the [place] kidneys. Multiple granulomas in thespleen. There are [...] or blastic lesions. Vacuum disc phenomenon at L4-5.[facility]cosGlycosylated Hemoglobin (A1C)2023-06-08 19:04:38* Test Item Value Reference Range Interpretation Comme [facility] HGB A1C (test code = 4548-4) 10.3 % 4.0-5.7 H AMELIA (test code = AMELIA) Reference RangesNormal: <5.7%Prediabetes: 5.7 - 6.4%Diabetes: > 6.5% Lab Interpretation (test code = 43850-5) Abnormal [facility] MarcosGlycosylated Hemoglobin (A1C)2023-06-08 19:04:38* Test Item Value Reference Range Interpretation Comme nts HGB A1C (test code = 4548-4) 10.3 % 4.0-5.7 H AMELIA (test code = AMELIA) Reference RangesNormal: <5.7%Prediabetes: 5.7 - 6.4%Diabetes: > 6.5% Lab Interpretation (test code = 70587-3) Abnormal [facility] MarcosThyroid Stimulating [id number] 18:15:25 * Test Item Value Reference Range Interpretation Comme nts TSH (test code = 1823665434) 0.71 0.45-4.70 Lab Interpretation (test cod e = 30375-0) Normal [facility] MarcosThyroid Stimulating [id number] 18:15:25 * Test Item Value Reference Range Interpretation Comme nts TSH (test code = 8270331768) 0.71 0.45-4.70 Lab Interpretation (test cod e = 29552-3) Normal [facility] [id number] 18:02:24* Test Item Value Reference Range Interpretation Comme nts FREE T4 (test code = 8144807829) 1.17 0.78-2.20 Lab Interpretation (test cod e = 72242-3) Normal [facility] [id number] 18:02:24* Test Item Value Reference Range Interpretation Comme nts FREE T4 (test code = 3822183630) 1.17 0.78-2.20 Lab Interpretation (test cod e = 61854-0) Normal [facility] [id number] 18:02:08* Test Item Value Reference Range Interpretation Comme nts FREE T3 (test code = 8647530622) 3.74 pg/mL 2.77-5.27 Lab Interpretation (test cod e = 75656-7) Normal [facility] [id number] 18:02:08* Test Item Value Reference Range Interpretation Comme nts FREE T3 (test code = 6658312654) 3.74 pg/mL 2.77-5.27 Lab Interpretation (test cod e = 80985-1) Normal [facility] MarcosLipid Panel (09951)(Total Cholesterol, Triglycerides, HDL)2023-06-08 17:46:23* Test Item Value Reference Range Interpretation Comme nts CHOL (test code = 7458560045) 178 mg/dL 120-200 HDL (test code = 9669227996) 96 mg/dL >=50 HDLC RATIO (test code = 3491139877) 1.9 <=4.5 TRIG (test code = 6952645507) 134 mg/dL 30-170 LDL CHOL (test code = 15418-4) 55 mg/dL <=160 VLDL (test code = 7809803895) 27 mg/dL 5-60 Lab Interpretation (test cod e = 58710-2) Normal [facility]cosLipid Panel (43980)(Total Cholesterol, Triglycerides, HDL)2023-06-08 17:46:23* Test Item Value Reference Range Interpretation Comme nts CHOL (test code = 0011530506) 178 mg/dL 120-200 HDL (test code = 2979785278) 96 mg/dL >=50 HDLC RATIO (test code = 1169820480) 1.9 <=4.5 TRIG (test code = 6635002047) 134 mg/dL 30-170 LDL CHOL (test code = 08288-4) 55 mg/dL <=160 VLDL (test code = 7499743782) 27 mg/dL 5-60 Lab Interpretation (test cod e = 81868-5) Normal [facility]cos[facility]. Metabolic Panel (44856)2023-06-08 17:45:42* Test Item Value Reference Range Interpretation Comme nts NA (test code = 9468040859) 137 mmol/L 135-145 K (test code = 1668091275) 4.7 mmol/L 3.5-5.0 CL (test code = 1107739940) 107 mmol/L 98-108 CO2 TOTAL (test code = 9177966566) 25 mmol/L 23-31 AGAP (test code = 7980469715) 5 2-16 BUN (test code = 0443463696) 17 mg/dL 7-23 GLUCOSE (test code = 0839593666) 231 mg/dL 70-110 H CREATININE (test code = 2160-0) 0.71 mg/dL 0.50-1.04 TOTAL BILI (test code = 8789448993) 0.7 mg/dL 0.1-1.1 CALCIUM (test code = 6598203978) 9.9 mg/dL 8.6-10.6 T PROTEIN (test code = 0100781436) 7.2 g/dL 6.3-8.2 ALBUMIN (test code = 8042563241) 3.9 g/dL 3.5-5.0 ALK PHOS (test code = 1432346553) 89 U/L 34-122 ALTv (test code = 1742-6) 17 U/L 5-35 AST(SGOT) (test code = 7609699064) 23 U/L 13-40 eGFR (test code = 92165-2) 97.5 mL/min/1.73m2 CKD-EPI eGFR (2020). Assuming creatinine has been stable day-to-day for at least three months, the eGFR indicates Category G1 (>= 90 mL/min/1.73 m2) Lab Interpretation (test code = 29137-8) Abnormal [facility]. Metabolic Panel (80773)2023-06-08 17:45:42* Test Item Value Reference Range Interpretation Comme nts NA (test code = 4975964769) 137 mmol/L 135-145 K (test code = 1589180739) 4.7 mmol/L 3.5-5.0 CL (test code = 5461111703) 107 mmol/L 98-108 CO2 TOTAL (test code = 7941896845) 25 mmol/L 23-31 AGAP (test code = 8515768569) 5 2-16 BUN (test code = 6366817605) 17 mg/dL 7-23 GLUCOSE (test code = 4885824093) 231 mg/dL 70-110 H CREATININE (test code = 2160-0) 0.71 mg/dL 0.50-1.04 TOTAL BILI (test code = 4062658933) 0.7 mg/dL 0.1-1.1 CALCIUM (test code = 2040242732) 9.9 mg/dL 8.6-10.6 T PROTEIN (test code = 9926394359) 7.2 g/dL 6.3-8.2 ALBUMIN (test code = 7086369691) 3.9 g/dL 3.5-5.0 ALK PHOS (test code = 1447365373) 89 U/L 34-122 ALTv (test code = 1742-6) 17 U/L 5-35 AST(SGOT) (test code = 5882257960) 23 U/L 13-40 eGFR (test code = 28966-5) 97.5 mL/min/1.73m2 CKD-EPI eGFR (2020). Assuming creatinine has been stable day-to-day for at least three months, the eGFR indicates Category G1 (>= 90 mL/min/1.73 m2) Lab Interpretation (test code = 50824-3) Abnormal [facility]cosCardiovascular Gdsihsoeicvdnkd1322-67-08 14:39:05Coronary angiogram/LHC/SVG and REYES angiogram Supervising Faculty: Dr Benítez was present for the entire procedure. Fellow: Dr Harvey Indication; 56 year-old female with CAD/multiple PCIs in past leading to CABGx2 in 02/06/2020, sternal wound dehisence needing surgery, kidney pancreas Tx, DM II, adrenal insufficiency on replacement, CVA, Sz, c/o CP/FERNANDEZ, Plan for LHC +-PCI 4Fr R BRASS POLISHER micropuncture US guided access, we advanced 4Fr [...] compression LM; mild LILAD: pLAD mild LI, gDAN819% CTOLCx: pLcx mild LI, mLCx 30%, dLCxmild LI, OM1 large vessel 30%, LCxPLB1-2 small mild LIRCA; codominant vessel, pRCA 100% AIRCRAFT DELIVERY CHECKER, dRCA/RV marginal and small R{DA get left to right collaterals L SCA patentLIMA to mLAD patent, m-dLAD mildLISVG to OM not found and occluded LVEDP 16 No complications, no CP, vitals stable A/P;-Severe [place] CAD with mLAD AIRCRAFT DELIVERY CHECKER, pRCA AIRCRAFT DELIVERY CHECKER. Patent REYES to LAD. Occluded SVG to [...] CP/FERNANDEZ, Plan for LHC +- PCI 4FrR BRASS POLISHER micropuncture US guided access, we advanced 4Fr [...] compression LM; mild LILAD: pLAD mild LI, bZNS031% CTOLCx: pLcx mild LI, mLCx 30%, dLCx mild LI, OM1 large vessel 30%, LCxPLB1-2 small mild LIRCA; codominant vessel, pRCA 100% AIRCRAFT DELIVERY CHECKER, dRCA/RV marginal and small R{DA get left to right collaterals L SCA patentLIMA to mLAD patent, m- dLAD mild LISVG to OM not found and occluded LVEDP 16 No complications, no CP, vitals stable A/P;-Severe [place] CAD with mLAD AIRCRAFT DELIVERY CHECKER, pRCA AIRCRAFT DELIVERY CHECKER. Patent REYES to LAD. Occluded SVG to ?RCA. Lcx is mild LI. -Mild elevated LVEDP. -Aggressive medical rx for prevention of CAD. D/w patient and primary cardiology team. Overnight observation post procedure. Diabetes control. D/w pt and family. F/u with Dr Guevara as planned.[facility] GLUCOSE (AUTOMATED)2023-03-28 23:33:04* Test Item Value Reference Range Interpretation Comme [facility] POCT GLU (test code = 4189773364) 243 mg/dL 70-110 H Lab Interpretation (test cod e = 72747-9) Abnormal [facility] GLUCOSE (AUTOMATED)2023-03-28 23:33:04* Test Item Value Reference Range Interpretation Comme [facility] POCT GLU (test code = 5055832590) 243 mg/dL 70-110 H Lab Interpretation (test cod e = 72143-0) Abnormal [facility] GLUCOSE (AUTOMATED)2023-03-28 21:57:03* Test Item Value Reference Range Interpretation Comme nts POCT GLU (test code = 5301240500) 194 mg/dL 70-110 H Lab Interpretation (test cod e = 61689-6) [facility] 21:57:03* Test Item Value Reference Range Interpretation Comme nts POCT GLU (test code = 2228414705) 194 mg/dL 70-110 H Lab Interpretation (test cod e = 96195-5) [facility]2023-03-28 17:57:34* Test Item Value Reference Range Interpretation Comme nts POCT GLU (test code = 0618724490) 473 mg/dL 70-110 HH Lab Interpretation (test cod e = 66374-9) Abnormal [facility] GLUCOSE (AUTOMATED)2023-03-28 17:57:34* Test Item Value Reference Range Interpretation Comme nts POCT GLU (test code = 6404169738) 473 mg/dL 70-110 HH Lab Interpretation (test cod e = 10209-4) Abnormal [facility] GLUCOSE (AUTOMATED)2023-03-28 14:00:32* Test Item Value Reference Range Interpretation Comme nts POCT GLU (test code = 4372212664) 353 mg/dL 70-110 H Lab Interpretation (test cod e = 08154-2) Abnormal [facility] GLUCOSE (AUTOMATED)2023-03-28 14:00:32* Test Item Value Reference Range Interpretation Comme nts POCT GLU (test code = 1051223291) 353 mg/dL 70-110 H Lab Interpretation (test cod e = 20140-6) [facility]2023-03-28 03:37:55* Test Item Value Reference Range Interpretation Comme nts POCT GLU (test code = 2568634713) 499 mg/dL 70-110 HH Lab Interpretation (test cod e = 24746-6) [facility]2023-03-28 03:37:55* Test Item Value Reference Range Interpretation Comme nts POCT GLU (test code = 3528306068) 499 mg/dL 70-110 HH Lab Interpretation (test cod e = 40885-3) Abnormal [facility] GLUCOSE (AUTOMATED)2023-03-27 22:47:59* Test Item Value Reference Range Interpretation Comme nts POCT GLU (test code = 2997549473) 225 mg/dL 70-110 H Lab Interpretation (test cod e = 59047-8) Abnormal [facility] GLUCOSE (AUTOMATED)2023-03-27 22:47:59* Test Item Value Reference Range Interpretation Comme nts POCT GLU (test code = 1569011791) 225 mg/dL 70-110 H Lab Interpretation (test cod e = 01599-8) Abnormal [facility] GLUCOSE (AUTOMATED)2023-03-27 16:34:07* Test Item Value Reference Range Interpretation Comme nts POCT GLU (test code = 7572881555) 250 mg/dL 70-110 H Lab Interpretation (test cod e = 52067-2) Abnormal [facility] GLUCOSE (AUTOMATED)2023-03-27 16:34:07* Test Item Value Reference Range Interpretation Comme nts POCT GLU (test code = 9597143482) 250 mg/dL 70-110 H Lab Interpretation (test cod e = 98641-9) Abnormal [facility] METABOLIC PANEL (NA, K, CL, CO2, GLUCOSE, BUN, CREATININE, CA)2023-03-27 14:45:14* Test Item Value Reference Range Interpretation Comme nts NA (test code = 9578586804) 135 mmol/L 135-145 K (test code = 8854664880) 3.8 mmol/L 3.5-5.0 CL (test code = 5629507306) 104 mmol/L 98-108 CO2 TOTAL (test code = 9271696374) 27 mmol/L 23-31 AGAP (test code = 9357348819) 4 2-16 BUN (test code = 2135825935) 12 mg/dL 7-23 GLUCOSE (test code = 7453169951) 298 mg/dL 70-110 H CREATININE (test code = 9325270404) 0.65 mg/dL 0.50-1.04 CALCIUM (test code = 7396694873) 9.6 mg/dL 8.6-10.6 eGFR (test code = 20137-6) 100.9 mL/min/1.73m2 CKD-EPI eGFR (2020). Assuming creatinine has been stable day-to-day for at least three months, the eGFR indicates Category G1 (>= 90 mL/min/1.73 m2) Lab Interpretation (test code = 71564-0) Abnormal [facility] METABOL[facility]EL (NA, K, CL, CO2, GLUCOSE, BUN, CREATININE, CA)2023-03-27 14:45:14* Test Item Value Reference Range Interpretation Comme [facility] NA (test code = 1568225206) 135 mmol/L 135-145 K (test code = 4763421442) 3.8 mmol/L 3.5-5.0 CL (test code = 7885102236) 104 mmol/L 98-108 CO2 TOTAL (test code = 7607490221) 27 mmol/L 23-31 AGAP (test code = 2983752159) 4 2-16 BUN (test code = 4853498249) 12 mg/dL 7-23 GLUCOSE (test code = 7312808149) 298 mg/dL 70-110 H CREATININE (test code = 7638836078) 0.65 mg/dL 0.50-1.04 CALCIUM (test code = 9463248264) 9.6 mg/dL 8.6-10.6 eGFR (test code = 27038-2) 100.9 mL/min/1.73m2 CKD-EPI eGFR (2020). Assuming creatinine has been stable day-to-day for at least three months, the eGFR indicates Category G1 (>= 90 mL/min/1.73 m2) Lab Interpretation (test code = 12864-1) Abnormal [facility] MarcosPROTHROMBIN TIME / [id number] 14:40:36* Test Item Value Reference Range Interpretation Comme [facility] PROTIME PATIENT (test code = 5964-2) 10.8 See_Comment [Automated [employer]] The system which generated this result transmitted reference range: 10.1 - 12.6 Seconds. The reference range was not used to interpret this result as normal/abnormal. INR (test code = 6301-6) 1.0 Normal INR <1.1; Warfarin Therapeutic range 2.0 to 3.0 or 2.5 to 3.5, depending upon the indications. Lab Interpretation (test code = 09893-5) Normal [facility]PTT2023-12-29 14:40:36* Test Item Value Reference Range Interpretation Comme nts APTT Patient (test code = 3173-2) 28 See_Comment [Automated messa ge] The system which generated this result transmitted reference range: 26 - 36 Seconds. The reference range was not used to interpret this result as normal/abnormal. Lab Interpretation (test code = 27018-1) Normal [facility] MarcosPROTHROMBIN TIME / [id number] 14:40:36* Test Item Value Reference Range Interpretation Comme nts PROTIME PATIENT (test code = 5964-2) 10.8 See_Comment [Automated messa ge] The system which generated this result transmitted reference range: 10.1 - 12.6 Seconds. The reference range was not used to interpret this result as normal/abnormal. INR (test code = 6301-6) 1.0 Normal INR <1.1; Warfarin Therapeutic range 2.0 to 3.0 or 2.5 to 3.5, depending upon the indications. Lab Interpretation (test code = 50742-8) Normal [facility]TT2023-12-29 14:40:36* Test Item Value Reference Range Interpretation Comme nts APTT Patient (test code = 3173-2) 28 See_Comment [Automated messa ge] The system which generated this result transmitted reference range: 26 - 36 Seconds. The reference range was not used to interpret this result as normal/abnormal. Lab Interpretation (test code = 93634-5) Normal [facility] GLUCOSE (AUTOMATED)2023-03-27 14:27:18* Test Item Value Reference Range Interpretation Comme nts POCT GLU (test code = 2469847274) 287 mg/dL 70-110 H Lab Interpretation (test cod e = 36554-2) Abnormal [facility] GLUCOSE (AUTOMATED)2023-03-27 14:27:18* Test Item Value Reference Range Interpretation Comme nts POCT GLU (test code = 7641448629) 287 mg/dL 70-110 H Lab Interpretation (test cod e = 91663-9) Abnormal [facility]cosCB WITH [id number] 14:21:13* Test Item Value Reference Range Interpretation [...] 32.1 g/dL 31.6-35.1 RDW-SD (test code = 77476-2) 48.7 fL 39.0-49.9 RDW-CV (test code = 788-0) 14.6 % 12.0-15.5 PLT (test code = 777-3) 194 See_Comment [Automated messa ge] The system which generated this result transmitted reference range: 166 - 358 10*3/?L. The reference range was not used to interpret this result as normal/abnormal. MPV (test code = 68775-5) 9.1 fL 9.5-12.9 L NRBC/100 WBC (test code = 2835480024) 0.0 See_Comment [Automated [employer]] The system which generated this result transmitted reference range: 0.0 - 10.0 /100 WBCs. The reference range was not used to interpret this result as normal/abnormal. NRBC x10^3 (test code = 0245618811) See_Comment [Automated messa ge] The system which generated this result transmitted reference range: 10*3/?L. The reference range was not used to interpret this result as normal/abnormal. GRAN MAT (NEUT) % (test code = 770-8) 57.0 % IMM GRAN % (test code = 6439650888) 0.20 % LYMPH % (test code = 736-9) 33.0 % MONO % (test code = 5905-5) 8.7 % EOS % (test code = 713-8) 0.8 % BASO % (test code = 706-2) 0.3 % GRAN MAT x10^3(ANC) (test code = 8887342022) 3.68 10*3/uL 1.88-7.09 IMM GRAN x10^3 (test code = 6714884916) 0.00-0.06 LYMPH x10^3 (test code = 731-0) 2.13 10*3/uL 1.32-3.29 MONO x10^3 (test code = 742-7) 0.56 10*3/uL 0.33-0.92 EOS x10^3 (test code = 711-2) 0.05 10*3/uL 0.03-0.39 BASO x10^3 (test code = 704-7) 0.01-0.07 Lab Interpretation (test code = 91103-7) Abnormal [facility] WITH [id number] 14:21:13* Test Item Value Reference Range Interpretation [...] 32.1 g/dL 31.6-35.1 RDW-SD (test code = 37549-9) 48.7 fL 39.0-49.9 RDW-CV (test code = 788-0) 14.6 % 12.0-15.5 PLT (test code = 777-3) 194 See_Comment [Automated [employer]] The system which generated this result transmitted reference range: 166 - 358 10*3/?L. The reference range was not used to interpret this result as normal/abnormal. MPV (test code = 53100-9) 9.1 fL 9.5-12.9 L NRBC/100 WBC (test code = 6104874818) 0.0 See_Comment [Automated Patterns ssage] The system which generated this result transmitted reference range: 0.0 - 10.0 /100 WBCs. The reference range was not used to interpret this result as normal/abnormal. NRBC x10^3 (test code = 7396798090) See_Comment [Automated [employer]] The system which generated this result transmitted reference range: 10*3/?L. The reference range was not used to interpret this result as normal/abnormal. GRAN MAT (NEUT) % (test code = 770-8) 57.0 % IMM GRAN % (test code = 2217644957) 0.20 % LYMPH % (test code = 736-9) 33.0 % MONO % (test code = 5905-5) 8.7 % EOS % (test code = 713-8) 0.8 % BASO % (test code = 706-2) 0.3 % GRAN MAT x10^3(ANC) (test code = 3442148893) 3.68 10*3/uL 1.88-7.09 IMM GRAN x10^3 (test code = 4690492179) 0.00-0.06 LYMPH x10^3 (test code = 731-0) 2.13 10*3/uL 1.32-3.29 MONO x10^3 (test code = 742-7) 0.56 10*3/uL 0.33-0.92 EOS x10^3 (test code = 711-2) 0.05 10*3/uL 0.03-0.39 BASO x10^3 (test code = 704-7) 0.01-0.07 Lab Interpretation (test code = 46101-2) Abnormal [facility] HEMOGLOBIN A1C [id number] 16:36:00* Test Item Value Reference Range Interpretation Comme nts POCT HBA1C (test code = 4548-4) 10.3 % 4-6 A Lab Interpretation (test cod e = 07980-7) Abnormal [facility] HEMOGLOBIN A1C [id number] 16:36:00* Test Item Value Reference Range Interpretation Comme nts POCT HBA1C (test code = 4548-4) 10.3 % 4-6 A Lab Interpretation (test cod e = 76898-4) Abnormal [facility] HEMOGLOBIN A1C [id number] 16:06:00* Test Item Value Reference Range Interpretation Comme nts POCT HBA1C (test code = 4548-4) 10.3 % 4-6 A Lab Interpretation (test cod e = 26086-3) Abnormal [facility] HEMOGLOBIN A1C [id number] 16:06:00* Test Item Value Reference Range Interpretation Comme nts POCT HBA1C (test code = 4548-4) 10.3 % 4-6 A Lab Interpretation (test cod e = 35511-7) Abnormal [facility] HEMOGLOBIN A1C [id number] 16:06:00* Test Item Value Reference Range Interpretation Comme nts POCT HBA1C (test code = 4548-4) 10.3 % 4-6 A Lab Interpretation (test cod e = 94337-6) Abnormal [facility] GLUCOSE (AUTOMATED)2022-08-11 21:43:18* Test Item Value Reference Range Interpretation Comme nts POCT GLU (test code = 2494188238) 227 mg/dL 70-110 H Lab Interpretation (test cod e = 12167-8) Abnormal [facility] GLUCOSE (AUTOMATED)2022-08-11 17:02:16* Test Item Value Reference Range Interpretation Comme nts POCT GLU (test code = 5376782549) 128 mg/dL 70-110 H Lab Interpretation (test cod e = 25102-2) Abnormal [facility] GLUCOSE (AUTOMATED)2022-08-11 13:19:57* Test Item Value Reference Range Interpretation Comme nts POCT GLU (test code = 7011956681) 223 mg/dL 70-110 H Lab Interpretation (test cod e = 44752-8) Abnormal [facility] GLUCOSE (AUTOMATED)2022-08-11 01:33:34* Test Item Value Reference Range Interpretation Comme nts POCT GLU (test code = 1885400057) 139 mg/dL 70-110 H Lab Interpretation (test cod e = 62045-5) [facility] 21:38:15* Test Item Value Reference Range Interpretation Comme nts POCT GLU (test code = 8209971710) 223 mg/dL 70-110 H Lab Interpretation (test cod e = 88512-7) [facility] 17:11:18* Test Item Value Reference Range Interpretation Comme nts POCT GLU (test code = 0804054006) 281 mg/dL 70-110 H Lab Interpretation (test cod e = 17235-0) Abnormal [facility] GLUCOSE (AUTOMATED)2022-08-10 13:19:59* Test Item Value Reference Range Interpretation Comme nts POCT GLU (test code = 4627658254) 190 mg/dL 70-110 H Lab Interpretation (test cod e = 20500-6) [facility] 08:55:56* Test Item Value Reference Range Interpretation Comme nts POCT GLU (test code = 2807586675) 153 mg/dL 70-110 H Lab Interpretation (test cod e = 73743-2) Abnormal [facility] GLUCOSE (AUTOMATED)2022-08-10 04:38:08* Test Item Value Reference Range Interpretation Comme nts POCT GLU (test code = 5550176836) 125 mg/dL 70-110 H Lab Interpretation (test cod e = 26750-2) Abnormal [facility] GLUCOSE (AUTOMATED)2022-08-10 01:41:02* Test Item Value Reference Range Interpretation Comme nts POCT GLU (test code = 7587990912) 302 mg/dL 70-110 H Lab Interpretation (test cod e = 48591-4) Abnormal [facility], [id number] 01:22:46* Test Item Value Reference Range Interpretation Comme nts VIT B12 (test code = 7139844950) 448 pg/mL 240-930 AMELIA (test code = AMELIA) Biotin has been reported to cause a positive bias, interpret results relative to patient's use of biotin. Lab Interpretation (test code = 69886-3) Normal [facility] GLUCOSE (AUTOMATED)2022-08-10 01:06:40* Test Item Value Reference Range Interpretation Comme nts POCT GLU (test code = 5390793903) 315 mg/dL 70-110 H Lab Interpretation (test cod e = 41468-5) Abnormal [facility] GLUCOSE (AUTOMATED)2022-08-09 21:43:47* Test Item Value Reference Range Interpretation Comme nts POCT GLU (test code = 0877356886) 338 mg/dL 70-110 H Lab Interpretation (test cod e = 76365-5) Abnormal [facility] GLUCOSE (AUTOMATED)2022-08-09 17:17:36* Test Item Value Reference Range Interpretation Comme nts POCT GLU (test code = 2286210723) 356 mg/dL 70-110 H Lab Interpretation (test cod e = 98846-0) Abnormal [facility] GLUCOSE (AUTOMATED)2022-08-09 15:03:13* Test Item Value Reference Range Interpretation Comme nts POCT GLU (test code = 6541110142) 229 mg/dL 70-110 H Notified Provide r Lab Interpretation (test code = 78295-6) Abnormal [facility] GLUCOSE (AUTOMATED)2022-08-09 13:10:19* Test Item Value Reference Range Interpretation Comme nts POCT GLU (test code = 1752278828) 172 mg/dL 70-110 H Notified Provide r Lab Interpretation (test code = 68268-5) Abnormal [facility] METABOLIC PANEL (NA, K, CL, CO2, GLUCOSE, BUN, CREATININE, CA)2022-08-09 10:37:20* Test Item Value Reference Range Interpretation Comme nts NA (test code = 2972292569) 138 mmol/L 135-145 K (test code = 3246003878) 4.1 mmol/L 3.5-5.0 Slight hemolysis CL (test code = 2561730367) 106 mmol/L 98-108 CO2 TOTAL (test code = 0361330466) 26 mmol/L 23-31 AGAP (test code = 2212731987) 6 2-16 BUN (test code = 1332877523) 14 mg/dL 7-23 Slight hemolysis GLUCOSE (test code = 6417271480) 196 mg/dL 70-110 H CREATININE (test code = 6215224223) 0.57 mg/dL 0.50-1.04 CALCIUM (test code = 9223139714) 8.8 mg/dL 8.6-10.6 eGFR (test code = 3502966218) 108.6 mL/min/1.73m2 AMELIA (test code = AMELIA) [...] imaging tests). Lab Interpretation (test code = 71137-0) [facility]normal [facility]2023-[facility]-13 10:31:42* Test Item Value Reference Range Interpretation Comme nts MAGNESIUM (test code = 1474872929) 1.6 mg/dL 1.7-2.4 L Lab Interpretation (test cod e = 00716-7) Abnormal [facility] GLUCOSE (AUTOMATED)2022-08-09 09:02:11* Test Item Value Reference Range Interpretation Comme nts POCT GLU (test code = 1459119905) 207 mg/dL 70-110 H Lab Interpretation (test cod e = 18034-1) Abnormal [facility] GLUCOSE (AUTOMATED)2022-08-09 05:04:08* Test Item Value Reference Range Interpretation Comme nts POCT GLU (test code = 0368126956) 261 mg/dL 70-110 H Lab Interpretation (test cod e = 38066-7) Abnormal [facility] GLUCOSE (AUTOMATED)2022-08-09 02:12:20* Test Item Value Reference Range Interpretation Comme nts POCT GLU (test code = 8890309979) 265 mg/dL 70-110 H Lab Interpretation (test cod e = 02613-7) Abnormal [facility] (Total Cholesterol, Triglycerides, HDL) - [id number] 01:27:53* Test Item Value Reference Range Interpretation Comme nts CHOL (test code = 0312135915) 132 mg/dL 120-200 HDL (test code = 4922474566) 55 mg/dL >=50 HDLC RATIO (test code = 3164196768) 2.4 <=4.5 TRIG (test code = 0571268463) 168 mg/dL 30-170 LDL CHOL (test code = 82855-8) 43 mg/dL <=160 VLDL (test code = 3424373516) 34 mg/dL 5-60 Lab Interpretation (test cod e = 12896-9) Normal [facility] GLUCOSE (AUTOMATED)2022-08-08 22:05:56* Test Item Value Reference Range Interpretation Comme nts POCT GLU (test code = 8751967364) 272 mg/dL 70-110 H Lab Interpretation (test cod e = 04834-8) Abnormal [facility] GLUCOSE (AUTOMATED)2022-08-08 16:29:59* Test Item Value Reference Range Interpretation Comme nts POCT GLU (test code = 1501955471) 160 mg/dL 70-110 H Lab Interpretation (test cod e = 73285-0) Abnormal [facility] GLUCOSE (AUTOMATED)2022-08-08 12:37:22* Test Item Value Reference Range Interpretation Comme nts POCT GLU (test code = 9872020249) 214 mg/dL 70-110 H Lab Interpretation (test cod e = 15125-2) Abnormal [facility] D, [id number] 12:20:28* Test Item Value Reference Range Interpretation Comme nts VIT D 25OH (test code = 12011-7) 29 ng/mL 25-80 AMELIA (test code = AMELIA) Deficiency: <20 ng/mLInsufficiency : 20-24 ng/mLOptimal: 25-80 ng/mL Lab Interpretation (test code = 78287-2) Normal [facility]cosTHYROID STIMULATING [id number] 12:14:28 * Test Item Value Reference Range Interpretation Comme nts TSH (test code = 4850234505) 0.64 See_Comment [Automated messa ge] The system which generated this result transmitted reference range: 0.45 - 4.70 mIU/L. The reference range was not used to interpret this result as normal/abnormal. Lab Interpretation (test code = 21424-3) Normal [facility]cosN-TERMINAL [id number] 11:53:06* Test Item Value Reference Range Interpretation Comme [facility] NT-proBNP (test code = 4386859667) 238 pg/mL <=125 H AMELIA (test code = AMELIA) Biotin has been reported to cause a negative bias, interpret results relative to patient's use of biotin. Lab Interpretation (test code = 84270-7) Abnormal [facility]cosGLYCOSYLATED HEMOGLOBIN (A1C)2022-08-08 11:44:51* Test Item Value Reference Range Interpretation Comme [facility] HGB A1C (test code = 4548-4) 10.0 % 4.0-5.7 H AMELIA (test code = AMELIA) Reference RangesNormal: <5.7%Prediabetes: 5.7 - 6.4%Diabetes: > 6.5% Lab Interpretation (test code = 60558-8) Abnormal [facility]cosAMYLASE2023-05-12 11:42:28* Test Item Value Reference Range Interpretation Comme nts [place] (test code = 7126432411) 68 U/L 35-110 Lab Interpretation (test cod e = 52318-0) Normal [facility] METABOLIC PANEL (NA, K, CL, CO2, GLUCOSE, BUN, CREATININE, CA)2022-08-08 11:35:43* Test Item Value Reference Range Interpretation Comme nts NA (test code = 6508594373) 137 mmol/L 135-145 K (test code = 6428826133) 3.3 mmol/L 3.5-5.0 L CL (test code = 9672790371) 106 mmol/L 98-108 CO2 TOTAL (test code = 4520169365) 21 mmol/L 23-31 L AGAP (test code = 2156072699) 10 2-16 BUN (test code = 5722437929) 12 mg/dL 7-23 GLUCOSE (test code = 4531106767) 191 mg/dL 70-110 H CREATININE (test code = 6619611255) 0.59 mg/dL 0.50-1.04 CALCIUM (test code = 5995267998) 9.2 mg/dL 8.6-10.6 eGFR (test code = 3994923431) 104.3 mL/min/1.73m2 AMELIA (test code = AMELIA) [...] imaging tests). Lab Interpretation (test code = 53673-5) Abnormal [facility] GLUCOSE (AUTOMATED)2022-08-08 10:51:28* Test Item Value Reference Range Interpretation Comme nts POCT GLU (test code = 6948913736) 180 mg/dL 70-110 H Lab Interpretation (test cod e = 78684-0) Abnormal [facility] GLUCOSE (AUTOMATED)2022-08-08 06:28:42* Test Item Value Reference Range Interpretation Comme nts POCT GLU (test code = 3299825387) 214 mg/dL 70-110 H Lab Interpretation (test cod e = 04141-2) Abnormal [facility] GLUCOSE (AUTOMATED)2022-08-08 05:12:27* Test Item Value Reference Range Interpretation Comme nts POCT GLU (test code = 9483423474) 307 mg/dL 70-110 H Lab Interpretation (test cod e = 49299-0) Abnormal [facility]. METABOLIC PANEL (92617)2022-08-08 04:25:46* Test Item Value Reference Range Interpretation Comme nts NA (test code = 5891669237) 131 mmol/L 135-145 L K (test code = 5214682494) 4.3 mmol/L 3.5-5.0 CL (test code = 6016362210) 98 mmol/L 98-108 CO2 TOTAL (test code = 9192201997) 23 mmol/L 23-31 AGAP (test code = 8515571762) 10 2-16 BUN (test code = 7487504016) 16 mg/dL 7-23 GLUCOSE (test code = 0308771261) 434 mg/dL 70-110 H CREATININE (test code = 5054454799) 0.70 mg/dL 0.50-1.04 TOTAL BILI (test code = 4718967274) 0.8 mg/dL 0.1-1.1 CALCIUM (test code = 7662913758) 9.5 mg/dL 8.6-10.6 T PROTEIN (test code = 3644314970) 6.8 g/dL 6.3-8.2 ALBUMIN (test code = 2170900769) 3.9 g/dL 3.5-5.0 ALK PHOS (test code = 3920765422) 49 U/L 34-122 ALTv (test code = 1742-6) 31 U/L 5-35 AST(SGOT) (test code = 1909352779) 24 U/L 13-40 eGFR (test code = 7958871916) 85.6 mL/min/1.73m2 AMELIA (test code = AMELIA) [...] imaging tests). Lab Interpretation (test code = 64776-3) Abnormal [facility]IPASE2023-05-12 04:25:05* Test Item Value Reference Range Interpretation Comme nts LIPASE (test code = 7615224500) 193 U/L 0-220 Lab Interpretation (test cod e = 91041-1) Normal [facility] GLUCOSE (AUTOMATED)2022-08-08 04:21:42* Test Item Value Reference Range Interpretation Comme nts POCT GLU (test code = 0939960714) 390 mg/dL 70-110 H Lab Interpretation (test cod e = 99088-3) Abnormal [facility] WITH [id number] 04:14:07* Test Item Value Reference Range Interpretation Comme nts WBC (test code = 6690-2) 7.12 See_Comment [Automated [employer] ge] The system which generated this result transmitted reference range: 4.30 - 11.10 10*3/?L. The reference range was not used to interpret this result as normal/abnormal. RBC (test code = 789-8) 4.65 See_Comment [Automated [employer]] The system which generated this result [...] 33.2 g/dL 31.6-35.1 RDW-SD (test code = 10693-6) 43.0 fL 39.0-49.9 RDW-CV (test code = 788-0) 13.0 % 12.0-15.5 PLT (test code = 777-3) 188 See_Comment [Automated [employer]] The system which generated this result transmitted reference range: 166 - 358 10*3/?L. The reference range was not used to interpret this result as normal/abnormal. MPV (test code = 42507-1) 9.6 fL 9.5-12.9 NRBC/100 WBC (test code = 0627633710) 0.0 See_Comment [Automated [employer]] The system which generated this result transmitted reference range: 0.0 - 10.0 /100 WBCs. The reference range was not used to interpret this result as normal/abnormal. NRBC x10^3 (test code = 6234039246) See_Comment [Automated messa ge] The system which generated this result transmitted reference range: 10*3/?L. The reference range was not used to interpret this result as normal/abnormal. GRAN MAT (NEUT) % (test code = 770-8) 69.3 % IMM GRAN % (test code = 4790943828) 0.40 % LYMPH % (test code = 736-9) 23.2 % MONO % (test code = 5905-5) 6.7 % EOS % (test code = 713-8) 0.1 % BASO % (test code = 706-2) 0.3 % GRAN MAT x10^3(ANC) (test code = 9722453734) 4.93 10*3/uL 1.88-7.09 IMM GRAN x10^3 (test code = 4240428008) 0.03 10*3/uL 0.00-0.06 LYMPH x10^3 (test code = 731-0) 1.65 10*3/uL 1.32-3.29 MONO x10^3 (test code = 742-7) 0.48 10*3/uL 0.33-0.92 EOS x10^3 (test code = 711-2) 0.03-0.39 L BASO x10^3 (test code = 704-7) 0.01-0.07 Lab Interpretation (test code = 48671-5) Abnormal [facility])2022-08-08 02:42:40* Test Item Value Reference Range Interpretation Comme [facility] POCT GLU (test code = 7081113880) 474 mg/dL 70-110 Lab Interpretation (test cod e = 46494-9) Abnormal [facility]cosPULMONARY FUNCTION TEST (RESULTS)2022-04-16 17:44:43* Test Item Value Reference Range Interpretation Comme [facility] FVC Actual (test code = 3994) 1.61 L FEV1 Actual (test code = 3993) 1.45 L FEV1/FVC Actual (test code = 3995) 90 % [facility]cosIMMUNOLOGY2020-11-19 00:07:00* Test Item Value Reference Range Interpretation Comme nts Coronavirus (COVID-19) CEE (test code = Coronavirus (COVID-19) CEE) Not Detected (02/15/20 6:07 PM) [facility] [id number] 23:08:00* Test Item Value Reference Range Interpretation [...] (test code = Monocytes #) 1.3 <=0.8 [facility] HospitalCARDIAC [id number] 23:08:00* Test Item Value Reference Range Interpretation Comme nts Total CK (test code = Total CK) 111 12-191 Troponin-I (test code = Troponin-I) 0.28 <=0.40 [facility] HospitalCHEM [id number] 23:08:00* Test Item Value Reference Range Interpretation [...] code = Lactic Acid Lvl) 3.1 0.5-2.2 [facility] LESS THAN 3 [id number] 14:56:00 *.*.*.*.*.*.*.*.*.*.*.*.*.*FINAL*.*.*.*.*.*.*.*.*.*.*.*.*.*.*ELBOW, LESS THAN 3 VIEWS-Right Side HISTORY: 47 y/o female ?with right lateral condyle pain COMPARISON: 05/14/12 FINDINGS: No fracture dislocation is present. The joint spaces and alignment aremaintained. Vascular calcifications are present. GERTRUDIS BRYAN MD ?Personally interpreted by: YSABEL RUSSO MD /Signed/ YSABEL RUSSO MDUnValley County Hospital ORDER/REPORT [id number] 21:31:00* Test Item Value Reference Range Interpretation Comme [facility] [employer] CLINICAL INFORMATION (test code = 994) LMP: ?12/18/11# SLIDES: ? 1CLINICAL DX: ? ? ?V72.31 GIVEN-WWE,BTL,NORMAL ? OBF. [employer] SPECIMEN TYPE (test code = 1000) CERVICAL SUREPATH [employer] STATEMENT OF ADEQUACY (test code = 1001) ..SATISFACTORY FOR EVALUATION.ENDOCERVICAL COMPONENT PRESENT. [employer] DIAGNOSIS (test code = 996) ..NEGATIVE FOR INTRAEPITHELIAL LESION OR MALIGNANCY [employer] DIAGNOSIS SIGNATURE LINE (test code = 2965) [...] ?VERIFIED BY: ?Janeen SULLIVAN CT(ASCP) ?(ELECTRONIC SIGNATURE) [facility] MarcosTESTOSTERONE LC-MS/MS, [id number] 09:36:00 * Test Item Value Reference Range Interpretation Comme [facility] TESTOS (test code = 3375) 24 ng/dL 9-55 PERFORMED AT ?[facility], [address] [place] [address] [id number] Testosterone, Females 18 years and older^ Premenopausal ?9-55 ng/dL^ Postmenopausal 5-32 ng/dL^REFERENCE INTERVAL: Testosterone, LC-MS/MS^Access complete set of age- and/or gender-specific^reference intervals for this test in the [facility]^Test Directory ([employer]^ Sex Hormone Binding Globulin (test code = 1797) 92 nmol/L 30-135 PERFORMED AT ?[facility], [address] [place] [address] [id number] INTERVAL: Sex Hormone Binding Globulin^Access complete set of age- and/or gender-specific^reference intervals for this test in the [facility] Laboratory^Test Directory ([employer]^ TESTOS, FREE (test code = 3377) 2.0 pg/mL 1.1-5.8 PERFORMED AT ?[facility], [address] [place], [place] [address]Wt convert to pmol/L, multiply pg/mL by 3.47^The concentration of Free Testosterone is derived from a^mathematical expression based on the constant for the^binding of testosterone to sex hormone binding globulin.^Testosterone, Free LC-MS/MS Reference Interval for Females^18 years and older^ Postmenopausal: 0.6 - 3.8 pg/mL^REFERENCE INTERVAL: Testosterone, Free LC-MS/MS^Access complete set of age- and/or gender-specific^reference intervals for this test in the [facility] Laboratory^Test Directory ([employer]^ [facility] MarcosDIGITAL MAMMOGRAM, [id number] 17:10:00*.*.*.*.*.*.*.*.*.*.*.*.*.*FINAL*.*.*.*.*.*.*.*.*.*.*.*.*.*.*Computer- aided detection(CAD)utilized.No comparison images were available at the time of this reading. ? Bilateral Breast Findings:There are scattered fibroglandular densities (25% - 50% fibroglandular). ?No significant masses, calcifications or other abnormalities are seen. GERTRUDIS BRYAN MD ?Personally interpreted by: CHARLES SANTIAGO JR /Signed/ CHARLES SANTIAGO JRUnSouth Texas Health System McAllenFOLLICLE STIMULATING [id number] 14:36:00* Test Item Value Reference Range Interpretation Comme nts FSH (test code = 865) 66.84 mIU/ml MENSTRUATING FEM ADELA ?RANGE (mIU/ml)*Follicular phase................... 3.8-8.8Mid-cycle peak..................... 4.5-22.85Luteal phase....................... 1.7-5.1Post-menopausal female............. 16.7-113.6ADULT MALE........................ . 1.2-19. [facility] MarcosLUTEINIZING HORMONE [id number] 14:36:00* Test Item Value Reference Range Interpretation Comme [facility] LH (test code = 1322) 60.63 mIU/ml MENSTRUATING FEM ADELA ? RANGE (mIU/mL)Follicular phase.................... 2.1-10.9Mid-cycle peak...................... 19.1-103.0Luteal phase....................... . 1.2-12.8Post-menopausal female.............. 10.8-58.6ADULT MALE........................ .. 1.2-8.6 [facility], [id number] 14:36:00* Test Item Value Reference Range Interpretation Comme nts ESTRADIOL (test code = 785) 28 PG/ML NORMAL RANGE FOR ESTRADIOL. ? FEMALE. ?Follicular ? ? ? 27 - 122 PG/ML ?Mid-cycle ?95 - 433 PG/ML ?Luteal ? 49 - 291 PG/ML ?Post Menopausal ?20 - ?40 PG/ML. ? MALE ? ? ?20 - ?47 PG/ML [facility] MarcosCA-[id number] 14:36:00* Test Item Value Reference Range Interpretation Comme nts CA-125 (test code = 441) 8.8 U/ML 0.0-35.0 [facility] MarcosUS ABDOMEN [id number] 15:55:00US ABDOMEN LIMITED*.*.*.*.*.*.*.*.*.*.*.*.*.*FINAL*.*.*.*.*.*.*.*.*.*.*.*.*.*.*INDICATION: 46 year old with [...] echogenic cortex, compatible with chronic renal disease. RADUnSouth [facility] Health System McAllen Consult Notes Date/Time Note Provider Source 2024-07-07 07:55:17 Associated Order(s): IP SCREENING REFERRAL TO NUTRITION SERVICES NUTRITION ASSESSMENT - ADULT Unit: HFIM Reason for RD Encounter: Screening Reason : Eaten less than half of meals for >3 days Findings Nutrition Diagnosis: Nutrition Diagnosis: No nutrition diagnosis at this time * Interventions and Recommendation: No nutrition intervention needed at this time NUTRITION RISK: No risk, clinical nutrition signing off. Reconsult as needed. No data recorded Communication : RN Primary team Current Nutrition: Dietary Orders (From admission, onward) Start Ordered 07/05/24 1250 Adult Diet Carbohydrate Controlled; Carb choice 2500 lashonda Diet effective now Question Answer Comment Diet type Carbohydrate Controlled Calorie / CHO Amount: Carb choice 2500 lashonda 07/05/24 1249 Orderered Tube Feeds and Supplements Medication Dose Route Frequency Provider Last Rate Last Admin None PO/EN/PN Intakes: Percent Meals Eaten for the past 48 hrs: Percent Meals Eaten (%) 07/06/24 1700 100 07/06/24 1200 66 07/05/24 1600 100 07/05/24 1200 75 Nutrition Visit Information: 07/07: Pt seen at bedside. Reports good appetite, no issues with PO intake. Recalls UBW ~130 lbs, noted recent wt gain (fluid related?). Noted some nausea this morning, but comes and goes. Endocrine on board since pt is a pancreas/kidney transplant. No further nutrition intervention needed at this time. Clinical nutrition signing off, please reconsult as needed. Anthropometrics: Height: 142.2 cm (4' 8") Weight: 143 lbs (07/07) Weight Method: Bed scale Body mass index is 32.13 kg/m?. [place] body weight: 43.9 kg (96 lb 13.9 oz) Adjusted ideal body weight: 52.4 kg (115 lb 7 oz) Wt Readings from Last 10 Encounters: 07/06/24 65 kg (143 lb 4.8 oz) 07/05/24 28 kg (61 lb 12.8 oz) Weight history : Usual body weight: 143 lbs Estimated Nutrition Needs: Calculated Energy Needs Using Equations Height: 1.422 m (4' 8") Weight Used for Equation Calculations: 64.9 kg (143 lb) Energy Equation Used: Rule of thumb (kcal/kg) Energy Lower Range: 25 (kcal/kg) Energy Upper Range: 30 (kcal/day) Energy Needs Lower Range: 1622 kcal/day (kcal/day) Energy Needs Upper Range: 1946 kcal/day Temp: 37.3 ?C (99.1 ?F) Estimated Protein Needs (g/kg) Protein Lower Range: 1.2 (g/kg) Protein Upper Range: 1.5 (g/day) Protein Lower Range: 78 g/day (g/day) Protein Upper Range: 97 g/day Fluid Needs Fluid Needs Method: Or per MD (mL/kg) Fluid Needs: 30 (mL/day) Fluid Needs (Calculated): 1946 mL/day Nutrition Physical Findings per garage door service technician: O2 Delivery Method: Nasal cannula Gastrointestinal (WDL): WDL Abdomen Inspection: Soft; Flat Abdominal Tenderness: Nontender Bowel Sounds: All quadrants Bowel Sounds (All Quadrants): Active Last BM Date: 07/04/24 Wound 07/05/24 Other (Comments) Right Groin (Active) Wound 07/05/24 Traumatic Anterior;Left Pedal (Active) Nutrition Focused Physical Exam - Muscles and Fat: Basic Information: Admitting diagnosis: STEMI (ST elevation myocardial infarction) ([facility]) [I21.3] ST elevation myocardial infarction (STEMI), unspecified artery (HCC) [I21.3] Clinical course: The patient is a 59 y.o. female w PMH of CAD s/p CABG x2 (REYES-LAD, SVG-OM 01/2020), hemorrhagic CVA, T1DM s/p pancreas transplant x2, kidney transplant, bilateral carotid artery stenosis, adrenal insufficiency on hydrocortisone, osteoporosis, hypothyroidism, seizures, HTN, and HLD who presented from OSH for inferior STEMI. Patient underwent LHC with PCI x2 placed to proximal and mid LCX. Medications: aspirin, 81 mg, Oral, Daily atorvastatin, 80 mg, Oral, Daily clopidogrel, 75 mg, Oral, Daily hydrocortisone, 20 mg, Oral, Daily hydrocortisone, 5 mg, Oral, q24h insulin glargine, 20 Units, Subcutaneous, Every evening insulin lispro, 6 Units, Subcutaneous, TID with meals levothyroxine, 50 mcg, Oral, Daily mycophenolate, 250 mg, Oral, BID sodium chloride, 10 mL, Intravenous, q12h MICAELA tacrolimus, 0.5 mg, Oral, Daily tacrolimus, 1 mg, Oral, q AM PRN medications: acetaminophen, calcium gluconate, dextrose, dextrose, fentaNYL, glucagon, insulin lispro, iodixanol, lidocaine, magnesium sulfate, midazolam (PF), nitroglycerin, potassium & sodium phosphates OR potassium & sodium phosphates, potassium chloride OR potassium chloride OR potassium chloride OR Potassium chloride, sodium chloride, sodium phosphates 45 mmol in sodium chloride 0.9 % 100 mL IVPB Labs: Pertinent Labs : Lab Results Component Value Date Sodium Lvl 143 07/06/2024 Potassium Lvl 4.8 (H) 07/06/2024 Chloride Lvl 107 07/06/2024 CO2 Lvl 27.7 07/06/2024 BUN 22 07/06/2024 Creatinine Lvl 1.00 07/06/2024 Glucose Lvl 242 (H) 07/06/2024 POC Glu 255 (H) 07/06/2024 Lab Results Component Value Date Calcium Lvl 8.9 07/06/2024 Magnesium 2.27 07/06/2024 Phosphorus Lvl 3.2 07/06/2024 Lab Results Component Value Date AST 65 (H) 07/05/2024 ALT 31 07/05/2024 Alkaline Phosphatase 42 (L) 07/05/2024 Lab Results Component Value Date Hgb A1C 9.50 (H) 07/06/2024 Review / Management: I/O 24 HRS: Intake/Output Summary (Last 24 hours) at 07/07/2024 0755 Last data filed at 07/06/2024 1700 Gross per 24 hour Intake 480 ml Output -- Net 480 ml Registered Dietitian: Bobbi Orona MPH, RD, LD, CNSC Mon-Fri Spectra: [phone] Wknd/on-call pager: [phone] Nutrition [facility] 2024-07-06 09:36:51 CVICU Critical Care Team Rounds Diet changed to carbohydrate controlled diet. Ate ~60% of breakfast this am. HgbA1C 9.5% .BM 07/04. Seen with team this morning. Admitted yesterday to CVICU. Life flighted from OSH. Status post STEMI. Left heart cath early this am. History of pancrease and kidney transplant at [facility]. 59 y.o. female with past medical history including pancreas transplant, kidney transplant, CAD s/p CABG REYES-LAD, SVG-OM 01/2020, prior hemorrhagic stroke, bilateral carotid artery stenosis, depression, diabetes, GERD, Hep C, HLD, seizures, thyroid disease, HTN who presented from OSH for inferior STEMI. If hyperglycemic, recommend changing diet to carbohydrate controlled, low fat. Lainey Hoskins RD, CNSC, LD Pager [phone] [employer] [phone] Nutrition [facility] 2024-07-05 16:20:49 Reason For Consult Immunosuppression for history of pancreas/kidney transplant History Of Present Illness Evelia Casas is a 59 y.o. female presenting with PMH of T1DM s/p renal/pancreas transplant in 1988. Repeat kidney transplant 1991 and 2008; Repeat pancreas transplant 2003, CAD s/p CABG x2 (REYES-LAD, SVG-OM 01/2020), , hemorrhagic CVA, bilateral carotid artery stenosis, adrenal insufficiency on hydrocortisone, osteoporosis, hypothyroidism, seizures, HTN, and HLD who presented from OSH for inferior STEMI. Patient underwent LHC with PCI x2 placed to proximal and mid LCX. She had episode of rejection of her pancreas and has been on insulin since July 2023 Past Medical History T1DM, CAD s/p CABG, hemorrhagic CVA, bilateral carotid artery stenosis, adrenal insufficiency on hydrocortisone, osteoporosis, hypothyroidism, seizures, HTN, and HLD Surgical History SPK 1988, kidney tx 1991, 2008, repeat pancreas tx 2003 Social History She has no history on file for tobacco use, alcohol use, and drug use. Allergies Morphine Medications No medications prior to admission. Review of Systems Review of Systems Respiratory: Positive for chest tightness. Physical Exam Constitutional: Appearance: Normal appearance. HENT: Head: Normocephalic and atraumatic. Nose: Nose normal. Mouth/Throat: Mouth: Mucous membranes are moist. Pharynx: Oropharynx is clear. Eyes: Extraocular Movements: Extraocular movements intact. Conjunctiva/sclera: Conjunctivae normal. Pupils: Pupils are equal, round, and reactive to light. Cardiovascular: Rate and Rhythm: Regular rhythm. Pulmonary: Effort: Pulmonary effort is normal. Breath sounds: Normal breath sounds. Abdominal: Palpations: Abdomen is soft. Musculoskeletal: General: Normal range of motion. Cervical back: Normal range of motion and neck supple. Skin: General: Skin is warm and dry. Capillary Refill: Capillary refill takes less than 2 seconds. Neurological: General: No focal deficit present. Mental Status: He is alert and oriented to person, place, and time. Psychiatric: Mood and Affect: Mood normal. Behavior: Behavior normal. Last Recorded Vitals Blood pressure (!) 91/54, pulse 70, temperature 37.1 ?C (98.7 ?F), temperature source Oral, resp. rate 16, height 1.422 m (4' 8"), weight 60.4 kg (133 lb 2.5 oz), SpO2 100%. Body mass index is 29.85 kg/m?. Relevant Results Pertinent Labs : Lab Results Component Value Date WBC 13.56 (H) 07/05/2024 Hgb 15.0 (H) 07/05/2024 Hct 46.1 (H) 07/05/2024 Plt Count 220 07/05/2024 Lab Results Component Value Date Sodium Lvl 140 07/05/2024 Potassium Lvl 3.6 07/05/2024 Chloride Lvl 109 (H) 07/05/2024 CO2 Lvl 23.7 07/05/2024 BUN 15 07/05/2024 Creatinine Lvl 0.61 07/05/2024 Glucose Lvl 152 (H) 07/05/2024 POC Glu 250 (H) 07/05/2024 Lab Results Component Value Date Calcium Lvl 8.2 (L) 07/05/2024 Magnesium 1.54 (L) 07/05/2024 Assessment & Plan STEMI (ST elevation myocardial infarction) (HCC) CAD (coronary artery disease) Kidney transplant recipient Pancreas transplant status Diabetes (HCC) Adrenal insufficiency (HCC) Hypothyroid Allograft function - SPK 1988, kidney tx 1991, 2008, repeat pancreas tx 2003 - Cr 0.61 Immunosuppression - Continue home regimen: tacrolimus 1 mg q am and 0.5 in the evening and mycophenolate 250 mg BID - tacrolimus levels daily STEMI/CAD - Hx of CABG in 01/2020 (REYES-LAD, SVG-OM) - Patient presented to OSH ED with inferior STEMI, s/p 35 of TNK, then loaded with aspirin, plavix 600mg, 4,000 units of [facility] - Patient s/p 2 stents to ostial/proximal LCX 07/05/24 - continue aspirin 81mg daily, plavix 75mg daily DM - Type 1 DM since 5, Pancreas transplant X2, with rejection, she has been on insulin since July 2023 - Home regimen; Toujeo 20 units at night - Management per endocrine HLD - Continue home regimen: atorvastatin 80 mg at night Hypothyroidism - Continue home regimen: levothyroxine 50 mcg daily Adrenal Insufficiency - Etiology thought secondary to chronic steroid use in setting of immunosuppression - Continue home regimen: hydrocortisone 20 mg q am and hydrocortisone 5 mg at 3 pm Assessment and plan discussed with Dr. Jose Nye, [employer], [facility] Transplant Nephrology and Surgery Cosigned by Dylan Garcia MD at 07/05/2024 8:00 PM CDT Associated attestation - Dylan Garcia MD - 07/05/2024 8:00 PM CDT I have personally seen and examined the patient as detailed in Jesica Nye's note. Her documentation reflects our collaborative physical exam, lab review, assessment and plan. Evelia is a pancreas and kidney transplant recipient who was admitted for STEMI. She has been insulin dependent for the past 1 year. We will continue her current home immunosuppression as prescribed by her transplant team at [facility]. Dylan Garcia MD Transplant Nephrology [id number] Gerontology Nurse Practitioner [facility] 2024-07-05 11:43:00 Name: Evelia Casas Medical record: [id number] Date: 07/05/2024 HISTORY: REASON FOR CONSULT: Critical care management following STEMI HPI: The patient is a pleasant 59-year-old female who was admitted to the CVICU of CCU overflow. She has a history of kidney and pancreatic transplant hypertension, diabetes, CHF, adrenal insufficiency, hep C, GERD, seizures, hyperlipidemia. She presented to a different hospital with inferior STEMI, A-fib with RVR. She was taken to the [facility] and per urgently from [facility] where she underwent 2 stents to ostial/proximal left circumflex. She was then brought to the cardiovascular intensive care unit, chest pain-free, on nasal cannula. Tobacco: Never smoked PAST MEDICAL HISTORY: No past medical history on file. PAST SURGICAL HISTORY: No past surgical history on file. SOCIAL HISTORY: Social History Socioeconomic History Marital status: Spouse name: Not on file Number of children: Not on file Years of education: Not on file Highest education level: Not on file Occupational History Not on file Tobacco Use Smoking status: Not on file Smokeless tobacco: Not on file Substance and Sexual Activity Alcohol use: Not on file Drug use: Not on file Sexual activity: Not on file Other Topics Concern Not on file Social History Narrative Not on file Social Drivers of Health Financial Resource Strain: High Risk (03/09/2024) Received from [facility] Overall Financial Resource Strain (CARDIA) Difficulty of Paying Living Expenses: Hard Food Insecurity: No Food Insecurity (07/05/2024) Hunger Vital Sign Worried About Running Out of Food in the Last Year: Never true Ran Out of Food in the Last Year: Never true Transportation Needs: No Transportation Needs (07/05/2024) PRAPARE - Transportation Lack of Transportation (Medical): No Lack of Transportation (Non-Medical): No Physical Activity: Insufficiently Active (03/09/2024) Received from [facility] Exercise Vital Sign Days of Exercise per Week: 1 day Minutes of Exercise per Session: 10 min Stress: Not on file Social Connections: Unknown (08/08/2022) Received from [facility] Social Connection and Isolation Panel [NHANES] Frequency of Communication with Friends and Family: More than three times a week Frequency of Social Gatherings with Friends and Family: Not on file Attends Voodoo Services: Not on file Active Member of Clubs or Organizations: Not on file Attends Club or Organization Meetings: Not on file Marital Status: Intimate Partner Violence: Not on file Housing Stability: Low Risk (07/05/2024) Housing Stability Vital Sign Unable to Pay for Housing in the Last Year: No Number of Times Moved in the Last Year: 0 Homeless in the Last Year: No ALLERGIES: Allergies Allergen Reactions Morphine REVIEW OF SYSTEMS: No fever chills hemoptysis GI or urinary symptoms. MEDICATIONS: Scheduled Meds: aspirin, 81 mg, Oral, Daily [START ON 07/06/2024] clopidogrel, 75 mg, Oral, Daily [START ON 07/07/2024] hydrocortisone, 20 mg, Oral, Daily [START ON 07/06/2024] hydrocortisone, 30 mg, Oral, Daily [START ON 07/07/2024] hydrocortisone, 5 mg, Oral, q24h hydrocortisone sodium succinate, 50 mg, Intravenous, q6h MICAELA insulin glargine, 20 Units, Subcutaneous, Every evening insulin lispro, 6 Units, Subcutaneous, TID with meals mycophenolate, 250 mg, Oral, BID sodium chloride, 10 mL, Intravenous, q12h MICAELA tacrolimus, 0.5 mg, Oral, Daily [START ON 07/06/2024] tacrolimus, 1 mg, Oral, q AM Continuous Infusions: PRN Meds:. PRN medications: acetaminophen, calcium gluconate, dextrose, dextrose, fentaNYL, glucagon, insulin lispro, iodixanol, lidocaine, magnesium sulfate, midazolam (PF), nitroglycerin, potassium & sodium phosphates OR potassium & sodium phosphates, potassium chloride OR potassium chloride OR potassium chloride OR Potassium chloride, sodium chloride, sodium phosphates 45 mmol in sodium chloride 0.9 % 100 mL IVPB PHYSICAL EXAM: VITAL SIGNS: Body mass index is 29.85 kg/m?. BP (!) 91/54 | Pulse 70 | Temp 37.1 ?C (98.7 ?F) (Oral) | Resp 16 | Ht 1.422 m (4' 8") | Wt 60.4 kg (133 lb 2.5 oz) | SpO2 100% | BMI 29.85 kg/m? Gen: not in distress Head: atraumatic Mouth: moist oral mucosa Neck: no JVD Chest: bilateral air entry, no wheezes, no crackles Heart: normal rate, regular rhythm, normal S1, S2, no murmurs, rubs or extra cardiac sounds Abdomen: soft, non-tender, non-distended Extremities: no cyanosis, no edema Pulses: present in all extremities Neuro: alert and oriented, moving all extremities Skin: warm Psych: normal mood LABS: Results from last 7 days Lab Units 07/05/24 0851 BNP pg/mL 52 Labs: Last ABG Last CBC Result Last Lab Result Automated Differential Collection Time: 07/05/24 3:46 PM Result Value Ref Range Segs % 85.3 (H) 40.9 - 70.4 % Lymphs % 8.3 (L) 15.3 - 46.4 % Monos % 5.6 3.9 - 10.9 % Eos % 0.0 (L) 0.3 - 4.1 % Basos % 0.1 (L) 0.2 - 1.3 % Immature Grans % 0.7 0.1 - 1 % Segs # 11.56 (H) 2.03 - 7.09 10*3/uL Lymphs # 1.12 1.09 - 3.65 10*3/uL Monos # 0.76 0.27 - 0.78 10*3/uL Eos # 0.00 (L) 0.02 - 0.33 10*3/uL Basos # 0.02 0.01 - 0.09 10*3/uL Imm Grans # 0.10 (H) 0.01 - 0.07 10*3/uL Complete Blood Count Collection Time: 07/05/24 3:46 PM Result Value Ref Range WBC 13.56 (H) 4.15 - 10.55 10*3/uL RBC 4.72 3.74 - 5.22 10*6/uL NRBC % 0.0 0 /100 WBC Hgb 15.0 (H) 10.8 - 14.8 g/dL Hct 46.1 (H) 33.9 - 45.4 % MCV 97.7 (H) 77.8 - 97.5 fL MCH 31.8 24.9 - 32.6 pg MCHC 32.5 30.1 - 35.0 g/dL RDW - SD 49.6 (H) 37.6 - 49.1 fL Plt Count 220 191 - 422 10*3/uL MPV 9.3 9.0 - 12.6 fL Last BMP or CMP Result No results found for this or any previous visit. Culture Results No results found for the last 90 days. imaging Images were reviewed. ECHO: Transthoracic echo (TTE) complete 07/05/2024 Interpretation Summary Definity contrast was given for endocrdial definition.Left Ventricle: Mildly reduced systolic function with an estimated EF of 45 - 50%. No thrombus was noted in the left ventricle Mitral Valve: Mitral valve is structurally normal. No leaflet calcification in the mitral valve. Mild mitral regurgitation present. Tricuspid Valve: Mild tricuspid regurgitation present. RVSP is 28.00 mmHg. Compared to a study dated 09/17/21 the findings are similar ASSESSMENT/PLAN: STEMI Acute respiratory insufficiency Diabetes Hyperglycemia Adrenal insufficiency History of kidney and pancreatic transplant Seizures by history PLAN: Oxygen if needed to keep saturation above 92% Stress dose steroid, endocrinology was consulted Resume tacrolimus and CellCept Aspirin and Plavix Restarted Lantus, endocrinology is following Discussed with the patient in detail Discussed with the ICU team Critical care time for services 33 minutes [facility] 2024-07-05 10:37:10 Endocrinology Initial Consult Note Assessment: The patient is a 59 y.o. female w PMH of CAD s/p CABG x2 (REYES-LAD, SVG-OM 01/2020), hemorrhagic CVA, T1DM s/p pancreas transplant x2, kidney transplant, bilateral carotid artery stenosis, adrenal insufficiency on hydrocortisone, osteoporosis, hypothyroidism, seizures, HTN, and HLD who presented from OSH for inferior STEMI. Patient underwent LHC with PCI x2 placed to proximal and mid LCX. Endocrinology consulted for management of multiple endocrine pathologies (T1DM s/p pancreas transplant, adrenal insufficiency, hypothyroidism). Problem list: STEMI Kidney transplant x3 T1DM s/p pancreas transplant x2 Osteoporosis Adrenal insufficiency secondary to chronic steroid use Hypothyroidism Recommendations: - start glargine 20U every day - start lispro 6U TID with meals - SSI 1-4U with meals - recommend hydrocortisone 30mg on 4/9 AM followed by resumption of hydrocortisone 20mg qAm, 5mg q3PM on 07/07 - continue home levothyroxine 50 mcg Plan was discussed with Dr. Gracia. Thank you for the opportunity to participate in the care of this patient. We will continue to follow. Please page with any questions or concerns. Adelso Kraft MD Internal Medicine PGY3 [facility] Date of Consult: 07/05/2024 Requesting Physician: Dr. Nelson Consulting Physician: Dr. Gracia Reason for Consult:Management of T1DM, adrenal insufficiency, and hypothyroidism. History of Present Illness: The patient is a 59 y.o. female w PMH of CAD s/p CABG x2 (REYES-LAD, SVG-OM 01/2020), hemorrhagic CVA, T1DM s/p pancreas transplant x2, kidney transplant, bilateral carotid artery stenosis, adrenal insufficiency on hydrocortisone, osteoporosis, hypothyroidism, seizures, HTN, and HLD who presented from OSH for inferior STEMI. Patient underwent LHC with PCI x2 placed to proximal and mid LCX. Endocrinology consulted for management of multiple endocrine pathologies (T1DM s/p pancreas transplant, adrenal insufficiency, osteoporosis, hypothyroidism). Patient follows with Dr. Jess Doan at [facility], last endocrine visit 04/2024. DM I s/p pancreas transplant - diagnosed at the age of 3. She is s/p renal/pancreas transplant in 1988. Repeat kidney transplant 1991 and 2008; Repeat pancreas transplant 2003. Had hospital admission, she was found to have elevated lipase/amylase (07/04/22) and T1DM worsened d/t concern for transplant rejection. - Last A1c 9.9 on . Patient currently using 20U of toujeo qAM (decreased from 28U due to low blood sugars overnight) and aspart 5U TID premeal or 11U premeal if glucose >200. BG checks have ranged mainly from low 200s-high 200s at home. Adrenal insufficiency Etiology thought secondary to chronic steroid use in setting of immunosuppression. Currently on hydrocortisone 20 mg in the morning and 5 mg at 3 PM. Hypothyroidism: last TSH 0.88, FT4 1.25 on 10/2023. Currently on 50mcg levothyroxine daily. Osteoporosis: DEXA scan 05/2009 showed osteoporosis. Pt has Hx of multiple Fx, arthritis, chronic right hip pain due to arthritis. She was not able to tolerated oral bisphosphonate in the past due to GI side effects. Received Reclast in 08/2014, 08/2015, 09/2016 but was held from 2017 to 2020. Restarted on reclast 07/2021 given DEXA worsened in spine and right hip. DEXA 07/2022: lumbar spine -2.3, right femur neck -3.0, no significant change compared to 04/17/2022 History: Medical: No past medical history on file. Surgical: No past surgical history on file. Social: Social History Tobacco Use Smoking status: Not on file Smokeless tobacco: Not on file Substance Use Topics Alcohol use: Not on file Family: No family history on file. Prior to admission medications No current outpatient medications Allergies Allergies Allergen Reactions Morphine Review of Systems: Gen: No fever, chills, nightsweats, or fatigue. Skin: No rashes, sores, itching, or bruising. HEENT: No trauma, headache, or visual changes. No hearing loss, tinnitus, or vertigo. Resp: No wheezing, shortness or breath, cough, or hemoptysis. CV: No tachycardia, dyspnea on exertion, or orthopnea. No leg edema, or claudication GI: No nausea, vomiting, or abdominal pain. : No dysuria, hematuria, or incontinence. Msk: No myalgias or arthralgias. Neuro: No syncope, seizures, headaches, changes in sensation, or weakness. Heme: No easy bruising, bleeding, or lymphadenopathy. Endo: No heat or cold intolerance, hair loss, or weight changes. Psych: Not depressed or elevated mood, no anxiety. Physical Exam: Patient Vitals for the past 24 hrs: BP Temp Temp src Pulse Resp SpO2 07/05/24 0900 102/65 -- -- 74 (!) 11 100 % 07/05/24 0816 112/69 -- -- 74 12 100 % 07/05/24 0800 115/69 -- -- 77 (!) 26 -- 07/05/24 0750 -- 36.6 ?C (97.9 ?F) Oral 75 (!) 11 -- .Physical Exam Constitutional: The patient is not in acute distress. HENT: Normocephalic and atraumatic. Eyes: No scleral icterus, Extraocular movements intact , Conjunctivae normal, Pupils are equal, round, and reactive to light. Cardiovascular: Normal rate and regular rhythm with no added sounds Pulmonary: Pulmonary effort is normal. No respiratory distress. Normal breath sounds. No wheezing. Abdominal:Abdomen is soft., bowel sounds are normal. no distension. no abdominal tenderness. Skin:Skin is warm. Neurological: Alert and oriented with no focal deficit present. Data: Pertinent Labs : Lab Results Component Value Date WBC 9.02 07/05/2024 Hgb 14.1 07/05/2024 Hct 44.0 07/05/2024 Plt Count 193 07/05/2024 Lab Results Component Value Date Sodium Lvl 140 07/05/2024 Potassium Lvl 3.6 07/05/2024 Chloride Lvl 109 (H) 07/05/2024 CO2 Lvl 23.7 07/05/2024 BUN 15 07/05/2024 Creatinine Lvl 0.61 07/05/2024 Glucose Lvl 152 (H) 07/05/2024 POC Glu 222 (H) 07/05/2024 No results found for: "HGBA1C" No results found for: "TSH" Radiology Review: @[email or web address]@ Cosigned by Christiana Gracia MD at 07/06/2024 9:37 AM CDT Associated attestation - Christiana Gracia MD - 07/06/2024 9:37 AM CDT I saw and evaluated the patient, participating in the mcdaniel portions of the service. I reviewed the resident's note. I agree with the resident's findings and plan. Received all her transplants at [facility]. Continue current insulins, steroids, thyroid. Taper steroid to maintenance dose. Continue follow up with regular running rigger on discharge. [facility] 2024-07-05 10:13:50 CVICU Critical Care Team Rounds Newly admitted today. Life flighted from OSH. Status post STEMI. Left heart cath early this am. Heart Healthy diet ordered. Seen briefly with team, awake and oriented. History of pancrease and kidney transplant at [facility]. 59 y.o. female with past medical history including pancreas transplant, kidney transplant, CAD s/p CABG REYES-LAD, SVG-OM 01/2020, prior hemorrhagic stroke, bilateral carotid artery stenosis, depression, diabetes, GERD, Hep C, HLD, seizures, thyroid disease, HTN who presented from OSH for inferior STEMI. If hyperglycemic, recommend changing diet to carbohydrate controlled, low fat. Lainey Hoskins RD, CNSC, LD Pager [phone] [employer] [phone] [facility] History and Physical Notes Date/Time Note Provider Source 2024-07-05 06:14:56 History Of Present Illness Evelia Casas is a 59 y.o. female with past medical history including pancreas transplant, kidney transplant, CAD s/p CABG REYES-LAD, SVG-OM 01/2020, prior hemorrhagic stroke, bilateral carotid artery stenosis, depression, diabetes, GERD, Hep C, HLD, seizures, thyroid disease, HTN who presented from OSH for inferior STEMI. Patient says she began having chest pain yesterday which prompted her to go to the ED. ECG there showed inferior STEMI, A fib RVR. She was given full dose 35 of TNK and started on cardizem drip. En route on [facility], patient was additionally loaded with aspirin, plavix 600mg and given 4,000 units of heparin. En route, patient's BP 90-100s systolic thus cardizem was stopped with underlying sinus rhythm. Here, patient rates her chest pressure as a 3/10. Patient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 go home. Will revisit Thursday. Plan discharge Thursday. ObjectiveLast Recorded Vitals Blood pressure (!) 98/50, pulse 78, temperature 36.6 ?C (97.9 ?F), resp. rate 18, height 1.422 m (4' 7.98"), weight 60.7 kg (133 lb 13.1 oz), SpO2 97%. Body mass index is 30.02 kg/m?. Left heart catheterization (07/05/24)Findings: LM: Mild distal left main disease. LAD: AIRCRAFT DELIVERY CHECKER at the mid segment. LCX: Ostial 90% stenosis. RCA: dominant, AIRCRAFT DELIVERY CHECKER at the proximal segment, collaterals supplied by the distal LAD. REYES-mid LAD patent and supplies collaterals to the PDA. Intervention: LCX Syntax segment: 18,19 Pre- intervention: 90% stenosis, ELBERT 2 Post intervention: 0% stenosis, ELBERT 3 Conclusion: STEMI with culprit proximal LCX stenosis and significant chronic calcification of the proximal and mid LCX s/p PCI with two overlapping Orsiro stents a 3.0 x 13 mm distally and a 3.5 x 15 mm proximally (post-dilated with 4.0mm NC balloon to 16 ADINA proximally and 3.5 distally). Transthoracic echocardiogram (07/05/24)Definity contrast was given for endocrdial definition.Left Ventricle: Mildly reduced systolic function with an estimated EF of 45 - 50%. No thrombus was noted in the left ventricle Mitral Valve: Mitral valve is structurally normal. No leaflet calcification in the mitral valve. Mild mitral regurgitation present. Tricuspid Valve: Mild tricuspid regurgitation present. RVSP is 28.00 mmHg. Compared to a study dated 09/17/21 the findings are similar UE dopplers 07/08/24:1. Diminutive caliber of bilateral radial arteries. 2. Right distal radial artery is occluded. 3. Distal left radial artery and left ulnar artery could not be imaged due to the IV line dressing. 4. Rest of the left upper extremity arteries are patent with mild to moderate calcified plaque. Assessment & Plan CAD (coronary artery disease) - STEMI on presentation - s/p 2x KYE to ostial/proximal LCX 07/05/24 - Antiplatelet: Continue DAPT for at least 1 year. Pt was loaded with Plavix 600mg prior to cath. Will do 1 month of ASA/Brilinta (load with 180mg 07/08 then starting maintenance dose evening of 07/08). After 1 month, can do ASA/Plavix - Statin: Atorvastatin 80mg nightly, Zetia 10mg due to LDL 70. Should consider Repatha in the outpatient setting if LDL remains >70 - Started on low dose BB, Toprol XL 12.5 mg daily on 07/09. No further room for optimization of GDMT with RINA/ARB/ARNI due to BP. Paroxysmal A-fib (CMS/HCC) (HCC) - Refer patient for Watchman outpatient (history of hemorrhagic stroke) - Patient in sinus rhythm. No need for rate/rhythm control at this time Peripheral vascular disease (HCC) Carotid artery stenosis - See above for statin management - Upper extremity arterial dopplers show dimunitive caliber of radial arteries and R distal radial artery occluded. Lower extremity arterial doppler ABIs moderately decreased R sided and normal L sided (with toe pressures if ROSALIO > 1.4 since patient has DM) Hepatitis C - Follow up HCV RNA PCR Kidney transplant recipient Pancreas transplant status - Immunosuppression recommendations from Transplant Nephrology - Tacrolimus 1mg in the morning/0.5mg in the evening --> 1mg BID on 07/07 - Mycophenolate 250 mg PO q12h-->750mg q12h on 07/07 - Obtain tacrolimus level every morning at 5:30 AM, goal 5-7 Diabetes (HCC) Hypoglycemia - glargine decreased from 20 to 15 units daily, lispro 6 units before meals - Appreciate endocrinology recommendations especially given hypoglycemic events, most recently 40s Per Endo recs: Decrease glargine to 15U every day; can consider scheduling in AM. Continue lispro 6U TID with meals; please ensure pre meal insulin is administered if patient is eating meals. SSI 1-4U with meals. Continue hydrocortisone 20mg qAm, 5mg q3PM - continue home levothyroxine 50 mcg - upon discharge, can resume home insulin regimen with glargine 20U every day, lispro 5-11U TID with meals based on BG level and can follow up with [facility] endocrinology (Dr. Doan) Adrenal insufficiency (HCC) - hydrocortisone 30 mg PO once in morning and then 5 mg PO in afternoon on 07/06. - Starting 07/07, continue hydrocortisone 20mg at AM and 5mg at 3 PM Hypothyroid - Continue synthroid 50mcg daily Family members:Son: [phone] Daughter: [phone] Mother: [phone] Current Diet: Adult Diet Carbohydrate Controlled; Carb choice 2500 lashonda Dispo: IMU pending stabilization of blood glucose, then placement, possible SNF- submitted insurance auth to [facility]. Pt wants to go home. * Armand Cee MD - 07/09/2024 3:37 PM CDT [facility] IMU Progress Note Subjective History Of Present Illness Evelia Casas is a 59 y.o. woman with past medical history of type 1 diabetes mellitus (uncontrolled), hypothyroidism, adrenal insufficiency, hepatitis C infection, pancreas transplant, kidney transplant, prior hemorrhagic stroke. She has a past cardiac history of Coronary artery disease (CAD) 2 vessel coronary artery bypass graft (2v-CABG) with grafts from left internal mammillary artery to left anterior descending artery (REYES-LAD), patent, and saphenous vein graft to obtuse marginal (SVG-OM), previously occluded Hypertension Hyperlipidemia Non-valvular atrial fibrillation ([id number]), off anticoagulation Patient was admitted on 07/05/24 for an inferior STEMI, with a left circumflex artery (LCX) culprit. En route (since her door to balloon time was anticipated to be > 120 minutes), she received tenecteplase prior to her left heart catheterization (LHC) in addition to Plavix 600 mg x1, heparin 4000 units IV bolus, and aspirin 325 mg PO x1. For her atrial fibrillation with rapid ventricular rate, she was started on a diltiazem drip, which was discontinued due to soft blood pressures. After arriving at [facility], she underwent LHC with PCI to her LCX with 2x drug eluting stents (KYE). Patient was transferred to the [facility] 8 ICU as HFICU overflow. Blood pressures were borderline low, likely due to an inappropriately-sized blood pressure cuff. Groin US and CT AP were negative for access site complications. Endocrine evaluated her and recommended adjusting her insulin dose (glargine 20 units daily with lispro 6 units TID) and giving hydrocortisone 30 mg in the AM on 07/06/24 prior to resuming her home 20/5 mg dose. Her lower extremity ultrasound demonstrated bilateral peripheral vascular disease, pending ABIs and upper extremity arterial ultrasound. DAPT therapy plan: 1 month of ASA/Brilinta (with 30-day coupon from [facility] pharmacy), then switch to ASA/Plavix thereafter. Subjective NAEO, VSS, afebrile Denies CP and SOB Endocrine following and recs appreciated Tacro 4.1 Start on low dose BB, Toprol XL 12.5 mg daily Plan: stabilization of BG then placement, possibly SNF. Insurance auth sent to [facility] ObjectiveLast Recorded Vitals Blood pressure (!) 94/46, pulse 89, temperature 36.5 ?C (97.7 ?F), resp. rate 19, height 1.422 m (4' 7.98"), weight 61.1 kg (134 lb 11.2 oz), SpO2 98%. Body mass index is 30.22 kg/m?. Left heart catheterization (07/05/24)Findings: LM: Mild distal left main disease. LAD: AIRCRAFT DELIVERY CHECKER at the mid segment. LCX: Ostial 90% stenosis. RCA: dominant, AIRCRAFT DELIVERY CHECKER at the proximal segment, collaterals supplied by the distal LAD. REYES-mid LAD patent and supplies collaterals to the PDA. Intervention: LCX Syntax segment: 18,19 Pre- intervention: 90% stenosis, ELBERT 2 Post intervention: 0% stenosis, ELBERT 3 Conclusion: STEMI with culprit proximal LCX stenosis and significant chronic calcification of the proximal and mid LCX s/p PCI with two overlapping Orsiro stents a 3.0 x 13 mm distally and a 3.5 x 15 mm proximally (post-dilated with 4.0mm NC balloon to 16 ADINA proximally and 3.5 distally). Transthoracic echocardiogram (07/05/24)Definity contrast was given for endocrdial definition.Left Ventricle: Mildly reduced systolic function with an estimated EF of 45 - 50%. No thrombus was noted in the left ventricle Mitral Valve: Mitral valve is structurally normal. No leaflet calcification in the mitral valve. Mild mitral regurgitation present. Tricuspid Valve: Mild tricuspid regurgitation present. RVSP is 28.00 mmHg. Compared to a study dated 09/17/21 the findings are similar UE dopplers 07/08/24:1. Diminutive caliber of bilateral radial arteries. 2. Right distal radial artery is occluded. 3. Distal left radial artery and left ulnar artery could not be imaged due to the IV line dressing. 4. Rest of the left upper extremity arteries are patent with mild to moderate calcified plaque. Assessment & Plan CAD (coronary artery disease) - STEMI on presentation - s/p 2x KYE to ostial/proximal LCX 07/05/24 - Antiplatelet: Continue DAPT for at least 1 year. Pt was loaded with Plavix 600mg prior to cath. Will do 1 month of ASA/Brilinta (load with 180mg 07/08 then starting maintenance dose evening of 07/08). After 1 month, can do ASA/Plavix - Statin: Atorvastatin 80mg nightly, Zetia 10mg due to LDL 70. Should consider Repatha in the outpatient setting if LDL remains >70 - Will start low dose BB, Toprol XL 12.5 mg Paroxysmal A-fib (CMS/HCC) (HCC) - Refer patient for Watchman outpatient (history of hemorrhagic stroke) - Patient in sinus rhythm. No need for rate/rhythm control at this time Peripheral vascular disease (HCC) Carotid artery stenosis - See above for statin management - Upper extremity arterial dopplers show dimunitive caliber of radial arteries and R distal radial artery occluded. Lower extremity arterial doppler ABIs moderately decreased R sided and normal L sided (with toe pressures if ROSALIO > 1.4 since patient has DM) Hepatitis C - Follow up HCV RNA PCR Kidney transplant recipient Pancreas transplant status - Immunosuppression recommendations from Transplant Nephrology - Tacrolimus 1mg in the morning/0.5mg in the evening --> 1mg BID on 07/07 - Mycophenolate 250 mg PO q12h-->750mg q12h on 07/07 - Obtain tacrolimus level every morning at 5:30 AM, goal 5-7 Diabetes (HCC) Hypoglycemia - glargine decreased from 20 to 15 units daily, lispro 6 units before meals - Appreciate endocrinology recommendations especially given hypoglycemic events, most recently 40s Per Endo recs: Decrease glargine to 15U every day; can consider scheduling in AM. Continue lispro 6U TID with meals; please ensure pre meal insulin is administered if patient is eating meals. SSI 1-4U with meals. Continue hydrocortisone 20mg qAm, 5mg q3PM - continue home levothyroxine 50 mcg - upon discharge, can resume home insulin regimen with glargine 20U every day, lispro 5-11U TID with meals based on BG level and can follow up with [facility] endocrinology (Dr. Doan) Adrenal insufficiency (HCC) - hydrocortisone 30 mg PO once in morning and then 5 mg PO in afternoon on 07/06. - Starting 07/07, continue hydrocortisone 20mg at AM and 5mg at 3 PM Hypothyroid - Continue synthroid 50mcg daily Family members:Son: [phone] Daughter: [phone] Mother: [phone] Current Diet: Adult Diet Carbohydrate Controlled; Carb choice 2500 lashonda Dispo: IMU pending stabilization of blood glucose, then placement, possible SNF- submitted insurance auth to [facility] * Adelso Kraft MD - 07/08/2024 2:26 PM CDT Brief Endocrinology Note Assessment: The patient is a 59 y.o. female w PMH of CAD s/p CABG x2 (REYES-LAD, SVG-OM 01/2020), hemorrhagic CVA, T1DM s/p pancreas transplant x2, kidney transplant, bilateral carotid artery stenosis, adrenal insufficiency on hydrocortisone, osteoporosis, hypothyroidism, seizures, HTN, and HLD who presented from OSH for inferior STEMI. Patient underwent LHC with PCI x2 placed to proximal and mid LCX. Endocrinology consulted for management of multiple endocrine pathologies (T1DM s/p pancreas transplant, adrenal insufficiency, hypothyroidism). Problem list: STEMI Kidney transplant x3 T1DM s/p pancreas transplant x2 Osteoporosis Adrenal insufficiency secondary to chronic steroid use Hypothyroidism Recommendations: - decrease glargine to 15U every day; can consider scheduling in AM - continue lispro 6U TID with meals; please ensure pre meal insulin is administered if patient is eating meals - SSI 1-4U with meals - continue hydrocortisone 20mg qAm, 5mg q3PM - continue home levothyroxine 50 mcg - upon discharge, can resume home insulin regimen with glargine 20U every day, lispro 5-11U TID with meals based on BG level and can follow up with [facility] endocrinology (Dr. Doan) Plan was discussed with Dr. Gracia. Thank you for the opportunity to participate in the care of this patient. Endocrine will sign off, please page with any questions or concerns. Adelso Kraft MDInternal Medicine PGY3 [facility] Cosigned by Christiana Gracia MD at 07/08/2024 4:37 PM CDT Associated attestation - Christiana Gracia MD - 07/08/2024 4:37 PM CDT I reviewed the case with the resident but did not see the patient. I agree with the assessment and plan as documented in the resident's note. * Coco Scruggs RN - 07/08/2024 1:39 PM CDT CASE MANAGEMENT ROUTINE DISCHARGE PLAN NOTE LOS: 3 Barriers to Discharge: symptomatic hypoglycemia overnight, endocrine following. Cont. monitoring blood sugars with sliding scale and long acting insulin. DISCHARGE PLAN A/B: Unit SW referred to LTC of choice per request and pending financial approval at this time. MARIBEL: 2-3 days * Mel Smith OT - 07/08/2024 1:39 PM CDT Treatment Session Note Patient Name: Evelia Casas Today's Date: 07/08/2024 Preferred Language: Peruvian Assessment & Plan Assessment: Pt making progress toward stated goals. Pt demo toileting, standing grooming with use of RW SUP level. Pt demo increased activity tolerance and fair safety. Pt continues to benefit from acute OT services for return to PLOF for max functional potential. Precautions: UE Weight Bearing Status: FWB LE Weight Bearing Status: FWB Medical Precautions: fall, cardiac, DVT prevent, standard Plan: Continue OT POC Subjective I'm doing good Pain: No pain reported Objective Vital Signs: VSS, monitored throughout General Visit Information: Family/Caregiver Present: No Self Care (ADL):Self Care/Home Management (ADLs) Time Entry: 27 Grooming Assistance: Setup/clean-up assistance Toileting Assistance: Supervision/touching assistance TreatmentRN cleared pt for session. Post session: Post-Therapy Checklist: Pt sitting up in chair, Call light within reach, All lines/lead intact, Vital signs stable, and RN informed/aware Self-Care:Self Care/Home Management (ADLs) Time Entry: 27 Grooming Assistance: Setup/clean-up assistance Toileting Assistance: Supervision/touching assistance Bed Mobility:Bed Mobility Bed Mobility: Yes Bed Mobility 1 Level of Assistance 1: Independent Bed Mobility To/From: Supine to sit on EOB Transfers:Transfers Transfer: Yes Transfer 1 Level of Assistance 1: Supervision/touching assistance Transfer To/From: Bed, [id number]/[id number] Assistive Devices And Adaptive Equipments: Walker, front-wheeled Transfers 2 Technique 2: Via walking Level of Assistance 2: Supervision/touching assistance Transfer To/From: Toilet Assistive Devices And Adaptive Equipments: Walker, front-wheeled Transfers 3 Technique 3: Via walking Level of Assistance 3: Supervision/touching assistance Transfer To/From: Chair Assistive Devices And Adaptive Equipments: Walker, front-wheeled AM-PAC Daily Activity:Putting on and taking off regular lower body clothing: A Little Bathing (including washing, rinsing, drying): A Little Toileting, which includes using toilet, bedpan or urinal: A Little Putting on and taking off regular upper body clothing: None Taking care of personal grooming such as brushing teeth: None Eating Meals: None AM-PAC Daily Activity Raw Score: 21 MobilityHighest Level of Mobility Performed (-HLM): Walked 10 steps or more (i.e. walked to restroom) Patient Education:Education Documentation No documentation found. Education Comments No comments found. Goals:Encounter Goals Encounter Goals (Active) Client will safely complete toilet t/f with Brian and manage clothing and nomore than 2 verbal cues. Start: 07/06/24 Expected End: 07/13/24 Pt. will complete grooming tasks standing at the sink for at least 10 minutes with Brian demonstrating increased IND with OOB ADLs. Start: 07/06/24 Expected End: 07/13/24 LTG - Patient will ambulate community distance using RW demonstrating improved IND with mobility and endurance. Start: 07/06/24 Expected End: 07/13/24 Within 1 week of starting therapy, the patient and/or family/caregiver will demonstrate independence and be compliant in a written HEP in order to maximize gains made during therapy. Start: 07/06/24 Expected End: 07/13/24 Treatment Note: If this is the last documented treatment, then it will signify discharge from acute care prior to discharge from the therapy service and will serve as the discharge summary. Mel Smith OT * Monica Degroot MD - 07/08/2024 8:30 AM CDT I saw and examined the patient with Dr Falcon on 07/08/24 and agree with plan and assessment as above. I personally reviewed the labs, diagnostic imaging and documentation and discussed the plan of care with team and patient Evelia Casas is a 59 y.o. female patient with h/o CAD s/p CABG 2 vessel in 2019 (REYES to LAD and SVG to OM) Kidneu and pancreas transplant, AF (not on OAC??), adrenal insufficiency, hypothyroidiosm, DM, admitted with STEMI S/p PCI to Left Cx x2 w KYE Subjective: No CP Hypoglycemic overnight- symptomatic BP 114/63 (BP Location: Right arm) | Pulse 72 | Temp 36.8 ?C (98.2 ?F) (Temporal) | Resp 18 | Ht 1.422 m (4' 8") | Wt 61.3 kg (135 lb 2.3 oz) | SpO2 96% | BMI 30.30 kg/m? Intake/Output Summary (Last 24 hours) at 07/08/2024 0830 Last data filed at 07/08/2024 0600 Gross per 24 hour Intake 1336 ml Output 1250 ml Net 86 ml General: alert, oriented, not in distress Neck;no JVD Lungs: CTABL Heart: S1,S2, no murmur Abdomen: soft, non tender, non distended, BS+ Extremities: no Lower extremity edema Skin: no rashes Labs: Reviewed STEMI, inferior/inferolateral - kotlik Lcx intervened - on DAPT. Plan for 1 month of Brillinta, and then switch to plavix - no beta jalyn currently due to marginal pressures - monitor MR - echo lateral wall is down. EF appears to be around 40-45% - lipid panel reviewed On statin, added Zetia 20 mg daily Need to be on Fish oils as well Holding BB for now, reassess Moderate to Severe MR - likely ischemic, hopeful for improvement given now revascularization Aim to reassess MR as outpatient CAD s/p CABG with REYES to LAD and SVG to OM Abdominal transplant - pancreas transplant, kidney transplant - Abd txp team consulted for immunosuppressive management. - on tacro and mmf at home Paroxysmal afib - will need to see about the history? - need to discuss the need for DOAC. Presumably was on DOAC, but after brain bleed stopped. Discussed the high risk of stroke. - Discussed about being considered for a watchman device sooner than later. - would like to follow with Dr. Guevara her primary cardiology. Hx of Prior hemorrhagic stroke - unclear etiology PAD, distal disease - ROSALIO pending B/l carotid stenosis Type 1 DM - endo following uncontrolled HLP Thyroid disease, hypothyroidism Adrenal insufficiency - on stress dose steroids DC pending glycemic stability Monica Degroot MD * Oksana Carrillo NP - 07/08/2024 8:29 AM CDT Subjective Downgraded level of care to IMU. Reports no new complaints/issues. Objective Last Recorded Vitals Blood pressure 114/63, pulse 72, temperature 36.8 ?C (98.2 ?F), temperature source Temporal, resp. rate 18, height 1.422 m (4' 8"), weight 61.3 kg (135 lb 2.3 oz), SpO2 96%. Body mass index is 30.3 kg/m?. Physical Exam:Constitutional: General: She is not in acute distress. HENT: Head: Normocephalic. Nose: No congestion. Mouth/Throat: Mouth: Mucous membranes are moist. Eyes: Pupils: Pupils are equal, round, and reactive to light. Cardiovascular: Rate and Rhythm: Normal rate and regular rhythm. Pulmonary: Effort: Pulmonary effort is normal. No respiratory distress. Abdominal: General: There is no distension. Palpations: Abdomen is soft. Skin: General: Skin is warm and dry. Neurological: General: No focal deficit present. Mental Status: She is alert. Psychiatric: Mood and Affect: Mood normal. Behavior: Behavior normal. Assessment & PlanCAD (coronary artery disease) Kidney transplant recipient Pancreas transplant status Diabetes (HCC) Adrenal insufficiency (HCC) Hypothyroid Paroxysmal A-fib (CMS/HCC) (HCC) Peripheral vascular disease (HCC) Carotid artery stenosis Hepatitis C Allograft function- SPK 1988, kidney tx 1991, 2008, repeat pancreas tx 2003 - Cr 0.61 on admission, 0.85 this AM. Immunosuppression- Home regimen: tacrolimus 1 mg q am and 0.5 in the evening and mycophenolate 250 mg BID. Had a discussion with patient - unclear as to why her MMF had dosed lower especially in light of being a dual organ transplant and pancreatic rejection - Continue increased MMF dose of 750mg BID. - Increase tacrolimus to 1.5mg BID as her tacrolimus trough remains low at 3.8. We would like to keep her tacrolimus trough closer to 8 and continue increased MMF dosing in the setting of chronic pancreatic transplant rejection. We anticipate her tac trough to reach that goal in about 3 days time - Continue to check Tacrolimus trough levels daily while admitted STEMI/CADpAfib - Hx of CABG in 01/2020 (REYES-LAD, SVG-OM) - Patient s/p 2 stents to ostial/proximal LCX 07/05/24 - continue aspirin 81mg daily. Ticagrelor started DM- Type 1 DM since 5, Pancreas transplant X2, with rejection, she has been on insulin since July 2023 - Home regimen: Toujeo 20 units at night - Ongoing management per endocrine Hypothyroidism- levothyroxine 50 mcg daily Adrenal Insufficiency- Etiology thought secondary to chronic steroid use in setting of immunosuppression - Continue home regimen: hydrocortisone 20 mg q am and hydrocortisone 5 mg at 3 pm - Endocrine to manage Hydrocortisone dosing Assessment and plan discussed with Dr. Garcia. Our team will sign off at this time. Please do not hesitate to contact us if our assistance is again needed. We recommend labs and follow up with her general ground source heat pump technician 1 week post DC- Dr. Garcia called her ground source heat pump technician who will have a nurse coordinator reach out to her to set this up. I have ordered more tacrolimus and mycophenolate prescriptions to her local pharmacy. Oksana Carrillo APRN, [facility] Transplant Nephrology and Surgery Cosigned by Dylan Garcia MD at 07/08/2024 4:12 PM CDT Associated attestation - Dylan Garcia MD - 07/08/2024 4:12 PM CDT I have personally seen and examined the patient as detailed in Oksana Carrillo's note. Her documentation reflects our collaborative physical exam, lab review, assessment and plan. Dylan Garcia MDTransplant Nephrology [id number] * Johnathan Paulino NP - 07/07/2024 3:49 PM CDT Subjective Seen and examined at bedside - resting comfortably Downgraded to IMU bed. No new complaints. Objective Last Recorded Vitals Blood pressure (!) 99/55, pulse 86, temperature 36.4 ?C (97.6 ?F), temperature source Oral, resp. rate 15, height 1.422 m (4' 8"), weight 65 kg (143 lb 4.8 oz), SpO2 97%. Body mass index is 32.13 kg/m?. Physical Exam:Constitutional: Appearance: Normal appearance. HENT: Head: Normocephalic and atraumatic. Nose: Nose normal. Mouth/Throat: Mouth: Mucous membranes are moist. Pharynx: Oropharynx is clear. Eyes: Extraocular Movements: Extraocular movements intact. Conjunctiva/sclera: Conjunctivae normal. Pupils: Pupils are equal, round, and reactive to light. Cardiovascular: Rate and Rhythm: Regular rhythm. Pulmonary: Effort: Pulmonary effort is normal. Breath sounds: Normal breath sounds. Abdominal: Palpations: Abdomen is soft. Musculoskeletal: General: Normal range of motion. Cervical back: Normal range of motion and neck supple. Skin: General: Skin is warm and dry. Capillary Refill: Capillary refill takes less than 2 seconds. Neurological: General: No focal deficit present. Mental Status: He is alert and oriented to person, place, and time. Psychiatric: Mood and Affect: Mood normal. Behavior: Behavior normal. Assessment & PlanCAD (coronary artery disease) Kidney transplant recipient Pancreas transplant status Diabetes (HCC) Adrenal insufficiency (HCC) HypothyroidAllograft function - SPK 1988, kidney tx 1991, 2008, repeat pancreas tx 2003 - Cr 0.61 on admission, 1.0 this AM. Had some hypotension overnight, possibly suggesting a prerenal LISE. Immunosuppression- Home regimen: tacrolimus 1 mg q am and 0.5 in the evening and mycophenolate 250 mg BID Had a discussion with patient - unclear as to why her MMF had dosed lower especially in light of being a dual organ transplant - We will increase her MMF at this time to 750mg BID in light of having a lower Tacro trough - We would like to change her Tacro to 1mg BID at this time given her persistently lower trough level - Continue to check Tacrolimus trough levels daily while admitted - Endocrine to manage Hydrocortisone dosing STEMI/CAD- Hx of CABG in 01/2020 (REYES-LAD, SVG-OM) - Patient presented to OSH ED with inferior STEMI, s/p 35 of TNK, then loaded with aspirin, plavix 600mg, 4,000 units of heparin en route to [facility] - Patient s/p 2 stents to ostial/proximal LCX 07/05/24 - continue aspirin 81mg daily, plavix 75mg daily DM- Type 1 DM since 5, Pancreas transplant X2, with rejection, she has been on insulin since July 2023 - Home regimen; Toujeo 20 units at night - Ongoing management per endocrine HLD- Continue home regimen: atorvastatin 80 mg at night Hypothyroidism- Continue home regimen: levothyroxine 50 mcg daily Adrenal Insufficiency- Etiology thought secondary to chronic steroid use in setting of immunosuppression - Continue home regimen: hydrocortisone 20 mg q am and hydrocortisone 5 mg at 3 pm Assessment and plan discussed with Dr. Gacria Paroxysmal A-fib (CMS/HCC) (HCC) Peripheral vascular disease (HCC) Carotid artery stenosis Hepatitis C Current Diet: Adult Diet Carbohydrate Controlled; Carb choice 2500 lashonda Cosigned by Dylan Garcia MD at 07/07/2024 8:08 PM CDT Associated attestation - Dylan Garcia MD - 07/07/2024 8:08 PM CDT I have personally seen and examined the patient as detailed in Johnathan Paulino's note. His documentation reflects our collaborative physical exam, lab review, assessment and plan. Dylan Garcia MDTransplant Nephrology [id number] * Katherine Conrad LMSW - 07/07/2024 2:54 PM CDT 07/07/24 1400 Discharge Planning Discharge Planning Comments Pts daughter Ashlyn Casas [phone] requested to see SW regarding placement. SW met with pts daughter at bedside to discuss SNF vs NH/LTC. Pts daughter is aware that pt will not qualify for SNF due to her mobility. Daughter would like referral sent to [facility] in [place]. SW provided pts daughter with a list of only 2 facilities in the [place] area. Referral was sent via [facility] to [facility]. SW will follow. * Monica Degroot MD - 07/07/2024 1:07 PM CDT I saw and examined the patient with Dr Falcon on 07/07/24 and agree with plan and assessment as above. I personally reviewed the labs, diagnostic imaging and documentation and discussed the plan of care with team and patient Evelia Casas is a 59 y.o. female patient with h/o CAD s/p CABG 2 vessel in 2019 (REYES to LAD and SVG to OM) Kidneu and pancreas transplant, AF (not on OAC??), adrenal insufficiency, hypothyroidiosm, DM, admitted with STEMI S/p PCI to Left Cx x2 w KYE Subjective: Transferred to IMU last night BP 109/63 | Pulse 81 | Temp 37.3 ?C (99.1 ?F) (Oral) | Resp 20 | Ht 1.422 m (4' 8") | Wt 65 kg (143 lb 4.8 oz) | SpO2 97% | BMI 32.13 kg/m? Intake/Output Summary (Last 24 hours) at 07/07/2024 1307 Last data filed at 07/07/2024 0900 Gross per 24 hour Intake 490 ml Output -- Net 490 ml General: alert, oriented, not in distress Neck;no JVD Lungs: CTABL Heart: S1,S2, no murmur Abdomen: soft, non tender, non distended, BS+ Extremities: no Lower extremity edema Skin: no rashes Labs: Reviewed STEMI, inferior/inferolateral - kotlik Lcx intervened - on DAPT. Ideally would like to be on brilinta, will discuss with pharmacy about affordability.- will give 1 month of Brillinta, and then switch to plavix - no beta jalyn currently due to marginal pressures - monitor MR - echo lateral wall is down. EF appears to be around 40-45% - lipid panel reviewed Zetia 20 mg daily Need to be on Fish oils as well Moderate to Severe MR - likely ischemic, hopeful for improvement given now revascularization Aim to reassess CAD s/p CABG with REYES to LAD and SVG to OM Abdominal transplant - pancreas transplant, kidney transplant - consulted for immunosuppressive management. - on tacro and mmf at home Paroxysmal afib - will need to see about the history? - need to discuss the need for DOAC. Presumably was on DOAC, but after brain bleed stopped. Discussed the high risk of stroke. - Discussed about being considered for a watchman device sooner than later. - would like to follow with Dr. Guevara her primary cardiology. Hx of Prior hemorrhagic stroke - unclear etiology PAD, distal disease - ROSALIO pending B/l carotid stenosis Type 1 DM - endo following uncontrolled HLP Thyroid disease, hypothyroidism Adrenal insufficiency - on stress dose steroids Monica Degroot MD * Jamari Argueta, PT - 07/07/2024 9:00 AM CDT Treatment Session Note Patient Name: Evelia Casas Today's Date: 07/07/2024 Preferred Language: Peruvian Assessment & Plan Today, pt is Mod I/Indep with all bed mobility, transfers, and ambulation with use of RW. Pt demonstrates improved ambulation distance, activity tolerance, and functional mobility. No LOB or buckling present. Conversation with daughter and pt related to therapy discussed in full. At this time, pt has completed all acute skilled goals. PT TO SIGN OFF. Assessment: Prognosis: Good Evaluation/Treatment Tolerance: Patient tolerated treatment well Medical Staff Made Aware: Yes Plan: Treatment Plan/Goals Established with Patient/Caregiver: Yes PT Plan: Skilled PT PT Recommended Transfer Status: Stand by assist Subjective Pleasant, cooperative, and agreeable to PT. Precautions: LE Weight Bearing Status: FWB Medical Precautions: fall, cardiac, DVT prevent, standard Pain: 0/10 Objective General Visit Information: = RN cleared pt for PT session = Pt received semifowler in bed with VSS = Educated on goals of PT session with verbalized understanding = Pt performed supine<>sit at EOB indep = Dangled at EOB ~2 min for acclimation = Pt performed sit<>stand from EOB with RW Mod I = Stood ~2 min for acclimation; back gown basil = Pt ambulated ~250 ft with RW Mod I = Pt performed stand<>sit at BSCh with RW Mod I = Pt left sitting up in BSCh with VSS, call light in reach, and all personal needs met = RN notified of pt status and position Initial VS: 100/57 (72), 85 HR, 96 O2 Post VS: 114/66 (83), 82 HR, 98 O2 General Family/Caregiver Present: No Activity Tolerance:Endurance: Endurance does not limit participation in activity Sitting Balance: Moves/returns truncal midpoint more than 2 inches in all planes Early Mobility/Exercise Safety Screen: Proceed with mobilization - No exclusion criteria met CognitionOverall Cognitive Status: Within Functional Limits Behavior/Cognition: Cooperative, Alert, Pleasant mood Orientation Level: Oriented X4 TreatmentTherapeutic activity: Therapeutic Activity Therapeutic Activity Time Entry: 15 Therapeutic Activity 1: supine<>sit Therapeutic Activity 2: sit<>stand Therapeutic Activity 3: stand<>sit Bed Mobility: Bed Mobility 1:Level of Assistance 1: Independent Bed Mobility Comments 1: indep Bed Mobility To/From: Supine to sit on EOB Assistive Devices And Adaptive Equipments: No device Transfers: Transfers 1: Level of Assistance 1: Independent Trials/Comments 1: Mod I with RW Transfer To/From: [id number] Assistive Devices And Adaptive Equipments: Walker, front-wheeled Gait training: Gait Training Time Entry: 15 Gait Training Activity 1:Distance (enter in feet): ~250 ft Gait Training Activity 1: Indoor surface Assistive Devices And Adaptive Equipments: Walker, front-wheeled Level of Assistance 1: Independent Gait Training Activity 1 Comment: Mod I with RW AM-PAC Basic Mobility:AM-PAC Basic Mobility Inpatient Turning in bed without bedrails: None Lying on back to sitting on edge of flat bed: None Bed to chair: None Standing up from chair: None Walk in room: None Climbing 3-5 stairs: A Little Mobility Inpatient Raw Score: 23 JH-HLM Goal: 7 Mobility: Highest Level of Mobility Performed (JH-HLM)JH-HLM Goal: 7 Highest Level of Mobility Performed (JH-HLM): Walked 250 feet or more (i.e. several laps on unit) Patient Education:Education Documentation Mobility, taught by Jamari Argueta PT at 07/06/2024 2:43 PM. Learner: Patient Readiness: Acceptance Method: Explanation Response: Verbalizes Understanding Physical Therapy Plan of Care, taught by Jamari Argueta PT at 07/06/2024 2:43 PM. Learner: Patient Readiness: Acceptance Method: Explanation Response: Verbalizes Understanding Education CommentsNo comments found. Goals:Encounter Goals Encounter Goals (Resolved) Patient will progress supine<>sit using hospital bed features with Indep assistance and no verbal cues. (Completed) Start: 07/06/24 Expected End: 08/05/24 Resolved: 07/07/24 Patient will progress to ambulate on even surface using LRAD or no AD >300 ft with Indep Assistance. (Completed) Start: 07/06/24 Expected End: 08/05/24 Resolved: 07/07/24 Patient will progress sit<>stand using LRAD or no AD with Indep assistance and no verbal cues. (Completed) Start: 07/06/24 Expected End: 08/05/24 Resolved: 07/07/24 Treatment Note: If this is the last documented treatment, then it will signify discharge from acute care prior to discharge from the therapy service and will serve as the discharge summary. Jamari Argueta PT * Eloisa Falcon MD - 07/07/2024 8:00 AM CDT [facility] IMU Progress Note Subjective History Of Present Illness Evelia Casas is a 59 y.o. woman with past medical history of type 1 diabetes mellitus (uncontrolled), hypothyroidism, adrenal insufficiency, hepatitis C infection, pancreas transplant, kidney transplant, prior hemorrhagic stroke. She has a past cardiac history of Coronary artery disease (CAD) 2 vessel coronary artery bypass graft (2v-CABG) with grafts from left internal mammillary artery to left anterior descending artery (REYES-LAD), patent, and saphenous vein graft to obtuse marginal (SVG-OM), previously occluded Hypertension Hyperlipidemia Non-valvular atrial fibrillation ([id number]), off anticoagulation Patient was admitted on 07/05/24 for an inferior STEMI, with a left circumflex artery (LCX) culprit. En route (since her door to balloon time was anticipated to be > 120 minutes), she received tenecteplase prior to her left heart catheterization (LHC) in addition to Plavix 600 mg x1, heparin 4000 units IV bolus, and aspirin 325 mg PO x1. For her atrial fibrillation with rapid ventricular rate, she was started on a diltiazem drip, which was discontinued due to soft blood pressures. After arriving at [facility], she underwent LHC with PCI to her LCX with 2x drug eluting stents (KYE). Patient was transferred to the [facility] ICU as HFICU overflow. Over the day, her blood pressures were borderline low, likely due to an inappropriately-sized blood pressure cuff. Groin US and CT AP were negative for access site complications. Endocrine evaluated her and recommended adjusting her insulin dose (glargine 20 units daily with lispro 6 units TID). and giving hydrocortisone 30 mg in the AM on 07/06/24 prior to resuming her home 20/5 mg dose. Her lower extremity ultrasound demonstrated bilateral peripheral vascular disease, pending ABIs and upper extremity arterial ultrasound. Pending pharmacy evaluation if patient can afford ticagrelor at discharge prior to transitioning. ObjectiveLast Recorded Vitals Blood pressure (!) 99/59, pulse 75, temperature 37.3 ?C (99.1 ?F), temperature source Oral, resp. rate 15, height 1.422 m (4' 8"), weight 65 kg (143 lb 4.8 oz), SpO2 (!) 87%. Body mass index is 32.13 kg/m?. Labs- Hemoglobin A1c 9.5% - TSH 0.374, T4 1.09 - Tacrolimus 4.0 (drawn at midnight) - CBC: WBC 12.74, normal hemoglobin and platelet counts - BMP: Unremarkable Left heart catheterization (07/05/24)Findings: LM: Mild distal left main disease. LAD: AIRCRAFT DELIVERY CHECKER at the mid segment. LCX: Ostial 90% stenosis. RCA: dominant, AIRCRAFT DELIVERY CHECKER at the proximal segment, collaterals supplied by the distal LAD. REYES-mid LAD patent and supplies collaterals to the PDA. Intervention: LCX Syntax segment: 18,19 Pre- intervention: 90% stenosis, ELBERT 2 Post intervention: 0% stenosis, ELBERT 3 Conclusion: STEMI with culprit proximal LCX stenosis and significant chronic calcification of the proximal and mid LCX s/p PCI with two overlapping Orsiro stents a 3.0 x 13 mm distally and a 3.5 x 15 mm proximally (post-dilated with 4.0mm NC balloon to 16 ADINA proximally and 3.5 distally). Transthoracic echocardiogram (07/05/24)Definity contrast was given for endocrdial definition.Left Ventricle: Mildly reduced systolic function with an estimated EF of 45 - 50%. No thrombus was noted in the left ventricle Mitral Valve: Mitral valve is structurally normal. No leaflet calcification in the mitral valve. Mild mitral regurgitation present. Tricuspid Valve: Mild tricuspid regurgitation present. RVSP is 28.00 mmHg. Compared to a study dated 09/17/21 the findings are similar Assessment & Plan CAD (coronary artery disease) - STEMI on presentation - s/p 2x KYE to ostial/proximal LCX 07/05/24 - Antiplatelet: Continue DAPT for at least 1 year. Pt was loaded with Plavix 600mg prior to cath. Will do 1 month of ASA/Brilinta (load with 180mg tomorrow 07/08 then starting maintenance dose evening of 07/08). After 1 month, can do ASA/Plavix - Statin: Atorvastatin 80mg nightly, add Zetia 10mg due to LDL 70. Should consider Repatha in the outpatient setting if LDL remains >70 Paroxysmal A-fib (CMS/HCC) (HCC) - Refer patient for Watchman outpatient (history of hemorrhagic stroke) - Patient in sinus rhythm. No need for rate/rhythm control at this time Peripheral vascular disease ([facility]) Carotid artery stenosis - See above for statin management - Follow up upper extremity arterial dopplers and lower extremity arterial doppler ABIs (with toe pressures if ROSALIO > 1.4 since patient has DM) Hepatitis C - Follow up HCV RNA PCR Kidney transplant recipient Pancreas transplant status - Immunosuppression recommendations from Transplant Nephrology - Tacrolimus 1mg in the morning/0.5mg in the evening --> 1mg BID on 07/07 - Mycophenolate 250 mg PO q12h-->750mg q12h on 07/07 - Obtain tacrolimus level every morning at 5:30 AM, goal 5-7 Diabetes ([facility]) - Start glargine 20 units daily, lispro 6 units before meals - Appreciate endocrinology recommendations, they have signed off - See above for statin management Adrenal insufficiency ([facility]) - hydrocortisone 30 mg PO once in morning and then 5 mg PO in afternoon on 07/06. - Starting 07/07, continue hydrocortisone 20mg at AM and 5mg at 3 PM Hypothyroid - Continue synthroid 50mcg daily Family members:Son: [phone] Daughter: [phone] Mother: [phone] Current Diet: Adult Diet Carbohydrate Controlled; Carb choice 2500 lashonda Cosigned by Monica Degroot MD at 07/08/2024 8:30 AM CDT * Adelso Kraft MD - 07/06/2024 5:09 PM CDT Brief Endocrinology Note Assessment: The patient is a 59 y.o. female w PMH of CAD s/p CABG x2 (REYES-LAD, SVG-OM 01/2020), hemorrhagic CVA, T1DM s/p pancreas transplant x2, kidney transplant, bilateral carotid artery stenosis, adrenal insufficiency on hydrocortisone, osteoporosis, hypothyroidism, seizures, HTN, and HLD who presented from OSH for inferior STEMI. Patient underwent LHC with PCI x2 placed to proximal and mid LCX. Endocrinology consulted for management of multiple endocrine pathologies (T1DM s/p pancreas transplant, adrenal insufficiency, hypothyroidism). Problem list: STEMI Kidney transplant x3 T1DM s/p pancreas transplant x2 Osteoporosis Adrenal insufficiency secondary to chronic steroid use Hypothyroidism Recommendations: - start glargine 20U every day - start lispro 6U TID with meals - SSI 1-4U with meals - recommend hydrocortisone 30mg on 4/9 AM followed by resumption of hydrocortisone 20mg qAm, 5mg q3PM on 07/07 - continue home levothyroxine 50 mcg - upon discharge, can resume home insulin regimen with glargine 20U every day, lispro 5-11U TID with meals based on BG level and can follow up with [facility] endocrinology Plan was discussed with Dr. Gracia. Thank you for the opportunity to participate in the care of this patient. Endocrinology will sign off at this time. Please page with any questions or concerns. Adelso Kraft MD Internal Medicine PGY3 [facility] Cosigned by Christiana Gracia MD at 07/06/2024 10:51 PM CDT Associated attestation - Christiana Gracia MD - 07/06/2024 10:51 PM CDT I reviewed the case with the resident but did not see the patient. I agree with the assessment and plan as documented in the resident's note. * Sandi John OT - 07/06/2024 2:30 PM CDT Images from the original note were not included. Evaluation and Treatment Patient Name: Evelia Casas Today's Date: 07/06/2024 Preferred Language: Peruvian Assessment & Plan Per EMR, "Patient is a 59 y.o. woman with past medical history of type 1 diabetes mellitus (uncontrolled), hypothyroidism, adrenal insufficiency, hepatitis C infection, pancreas transplant, kidney transplant, prior hemorrhagic stroke. Pt presents s/p 2 stents to ostial/proximal left circumflex following STEMI. PLOF: Prior to admission, pt lives with mother in single level home. Pt reports at baseline she is independent with ADLs and ambulated using quad cane. Pt reports home is equipped with shower chair and grab bars for safe ADL performance. Pt is retired and enjoys riding horses. CLOF: Pt pleasant and cooperative t/o session. Explanation of OT's role and assessment of BUEs and functional t/fs completed during OT evaluation. Pt seen on tele upon arrival. Today, pt is CGA-supv with functional transfers, ADLs and ambulation with use of RW. Increased time allotted with functional mobility due to pt moving at decreased pace. Pt demos safety with OOB ADLs however requires min vc for safety with functional transfers. At this time, pt presents below functional baseline and demos deficits in strength and endurance impacting OOB ADL participation. Pt will benefit from OT services while in-house setting to address aforementioned deficits, to maximize functional independence. Assessment: OT Assessment Results: Impaired endurance, Impaired IADLs Prognosis: Excellent Evaluation/Treatment Tolerance: Patient tolerated treatment well Medical Staff Made Aware: Yes Strengths: Ability to acquire knowledge, Living arrangement secure Plan: Treatment Plan/Goals Established with Patient/Caregiver: Yes Treatment Interventions: ADL retraining, Endurance training, Functional transfer training OT Planned Treatments: Mobility training, Pain management, Safety education, Therapeutic activities, Therapeutic exercises, Patient education, Activities of Daily Living, Balance training, Energy conservation training OT Plan: Skilled OT OT Frequency: 2-3 times per week until discharge OT Duration: Discharge OT - OK to Discharge: Yes Subjective "I feel like I can keep going" Current Problem: Per EMR, "Ms. Evelia Caass is a 59 y.o. woman with past medical history of type 1 diabetes mellitus (uncontrolled), hypothyroidism, adrenal insufficiency, hepatitis C infection, pancreas transplant, kidney transplant, prior hemorrhagic stroke. She has a past cardiac history of Coronary artery disease (CAD) 2 vessel coronary artery bypass graft (2v-CABG) with grafts from left internal mammillary artery to left anterior descending artery (REYES-LAD), patent, and saphenous vein graft to obtuse marginal (SVG-OM), previously occluded Hypertension Hyperlipidemia Non-valvular atrial fibrillation ([id number]), off anticoagulation Patient was admitted for an inferior STEMI, with a left circumflex artery (LCX) culprit. En route (since her door to balloon time was anticipated to be > 120 minutes), she received tenecteplase prior to her left heart catheterization (LHC) in addition to Plavix 600 mg x1, heparin 4000 units IV bolus, and aspirin 325 mg PO x1. For her atrial fibrillation with rapid ventricular rate, she was started on a diltiazem drip, which was discontinued due to soft blood pressures. After arriving at [facility], she underwent LHC with PCI to her LCX with 2x drug eluting stents (KYE). Patient was transferred to the [facility] ICU as overflow." Pain: No pain reported during session. Objective Vital Signs: 07/06/2024 11:00 AM 07/06/2024 12:00 PM 07/06/2024 1:00 PM 07/06/2024 2:00 PM 07/06/2024 2:20 PM 07/06/2024 3:00 PM 07/06/2024 4:00 PM Vitals Systolic 94 111 112 118 120 114 Diastolic 57 64 61 59 59 64 Heart Rate 80 79 87 100 86 87 85 Resp 50 25 27 54 18 21 23 General Visit Information: Family/Caregiver Present: No Others Present: GAGANDEEP Martines present at bedside upon arrival Precautions: UE Weight Bearing Status: FWB LE Weight Bearing Status: FWB Medical Precautions: fall, cardiac, DVT prevent, standard Cognition: Overall Cognitive Status: Within Functional Limits Behavior/Cognition: Alert, Cooperative, Pleasant mood Home Living: Type of Home: House Lives With: Family, Other (Comment) (lives with mother) Home Adaptive Equipment: Quad cane Home Layout: One level Home Access: Level entry Bathroom Shower/Tub: Walk-in shower, Tub/shower unit Bathroom Toilet: Standard Bathroom Equipment: Shower chair with back Bathroom Accessibility: Pt reports home is equipped with grab bars Prior Function: Level of [place]: Ambulated with assistive device (comment), Other (Comment) (quad cane) ADL Assistance: Independent Homemaking Assistance: Independent Vocational: Retired Leisure: Pt enjoys riding horses Prior Function Comments: Pt reports at baseline she is independent with OOB ADLs and ambulates with quad cane Social History: Social History Source: Patient Prior Level of Function: Independent Current Level of Function: CGA-supv assist with OOB ADLs for pt overall safety Self Care (ADL): Self Care/Home Management (ADLs) Time Entry: 39 Eating Assistance: Setup/clean-up assistance Assistive Devices And Adaptive Equipments: No device Eating Deficit: Setup Grooming Assistance: Supervision/touching assistance Grooming Deficit: Setup, Supervision/safety Assistive Devices And Adaptive Equipments: No Device UE Dressing Activity Component(s): Gown UE Dressing Assistance: Setup/clean-up assistance LE Dressing Activity Component(s): Other (specify), Socks, Shoes LE Dressing Assistance: Partial/Mod assistance LE Dressing Deficit: Setup, Increased time to complete, Don/doff R sock, Don/doff L sock Toileting Assistance: Supervision/touching assistance Toileting Deficit: Supervison/safety, Setup ADL Comments: Pt completed OOB ADLs with supv-setupA; mobilizes room with RW Mobility/Transfers: Transfer Transfers Transfer: Yes Transfer 1 Technique 1: Stand step Level of Assistance 1: Supervision/touching assistance Trials/Comments 1: CGA using RW - min vc on hand placement for overall safety with fxl t/fs Transfer To/From: [id number] Assistive Devices And Adaptive Equipments: Walker, front-wheeled Transfers 2 Technique 2: Via walking Level of Assistance 2: Supervision/touching assistance Trials/Comments 2: supv - requires 1 vc to reach back for chair armrests Transfer To/From: Chair Assistive Devices And Adaptive Equipments: Walker, front-wheeled Toilet Transfers Toilet Transfers Toilet Transfer To/From: Toilet Transfer Type: Via walking Level of Assistance: Supervision/touching assistance Assistive Devices And Adaptive Equipments: Walker, Front-wheeled Toilet Transfers Comments: CGA using RW Functional Mobility Functional Mobility Functional Mobility: Pt performs OOB mobility and unit mobility using RW with CGA-supv. Pt demos safe transfer techniques and requires min vc for overall safety OT General Assessments: ADL Self Care/Home Management (ADLs) Time Entry: 39 Eating Assistance: Setup/clean-up assistance Assistive Devices And Adaptive Equipments: No device Eating Deficit: Setup Grooming Assistance: Supervision/touching assistance Grooming Deficit: Setup, Supervision/safety Assistive Devices And Adaptive Equipments: No Device UE Dressing Activity Component(s): Gown UE Dressing Assistance: Setup/clean-up assistance LE Dressing Activity Component(s): Other (specify), Socks, Shoes LE Dressing Assistance: Partial/Mod assistance LE Dressing Deficit: Setup, Increased time to complete, Don/doff R sock, Don/doff L sock Toileting Assistance: Supervision/touching assistance Toileting Deficit: Supervison/safety, Setup ADL Comments: Pt completed OOB ADLs with supv-setupA; mobilizes room with RW Activity Tolerance Endurance: Tolerates 30+ min exercise without fatigue Sitting Balance: Sits without support for more than 30 sec Early Mobility/Exercise Safety Screen: Proceed with mobilization - No exclusion criteria met Activity Tolerance Comments: pt requires 1-2 standing rest breaks when ambulating unit; pt able to hold conversation during mobility tasks demonstrating good endurance with fxl activity Vision - Basic Assessment Current Vision: No visual deficits Vision - Complex Assessment Ocular Range of Motion: Within Functional Limits Tracking: Able to track stimulus in all quads without difficulty Sensation Light Touch: RUE Intact, LUE Intact Coordination Movements are Fluid and Coordinated: Yes Finger to Nose: Left intact, Right intact Hand Function Gross Grasp: Functional Coordination: Functional Extremity Assessments: Right Upper Extremity RUE Assessment RUE Assessment: Within Functional Limits RUE StrengthRUE Overall Strength: Within Functional Limits - able to perform ADL tasks with strength Left Upper Extremity LUE AssessmentLUE Assessment: Within Functional Limits LUE StrengthLUE Overall Strength: Within Functional Limits - able to perform ADL tasks with strength Upper Extremity ToneUpper Extremity Tone Left Upper Extremity: Normal Right Upper Extremity: Normal Treatment:Self-Care: Self Care/Home Management (ADLs) Time Entry: 39 Eating Assistance: Setup/clean-up assistance Assistive Devices And Adaptive Equipments: No device Eating Deficit: Setup Grooming Assistance: Supervision/touching assistance Grooming Deficit: Setup, Supervision/safety Assistive Devices And Adaptive Equipments: No Device UE Dressing Activity Component(s): Gown UE Dressing Assistance: Setup/clean-up assistance LE Dressing Activity Component(s): Other (specify), Socks, Shoes LE Dressing Assistance: Partial/Mod assistance LE Dressing Deficit: Setup, Increased time to complete, Don/doff R sock, Don/doff L sock Toileting Assistance: Supervision/touching assistance Toileting Deficit: Supervison/safety, Setup ADL Comments: Pt completed OOB ADLs with supv-setupA; mobilizes room with RW Therapeutic ActivityTherapeutic Activity 1: pt educated on OT POC and plans for next tx session Therapeutic Activity 2: pt ambulated entire unit using RW with CGA-supv; requires 1-2 standing rest breaks ~1 min Therapeutic Activity 3: pt completed functional transfers and OOB ADLs Therapeutic Activity 4: pt educated on safety with fxl t/fs to reduce risk of falls Post-therapy checklist: Pt left sitting in bedside chair, tele, NAD, VSS, all lines intact, RN informed of progress, all needs within reach. AM-PAC Daily Activity:Putting on and taking off regular lower body clothing: A Little Bathing (including washing, rinsing, drying): A Little Toileting, which includes using toilet, bedpan or urinal: A Little Putting on and taking off regular upper body clothing: A Little Taking care of personal grooming such as brushing teeth: None Eating Meals: None AM-PAC Daily Activity Raw Score: 20 MobilityHighest Level of Mobility Performed (JH-HLM): Walked 250 feet or more (i.e. several laps on unit) Patient Education:Education Documentation Fall Prevention, taught by Sandi John OT at 07/06/2024 3:55 PM. Learner: Patient Readiness: Acceptance Method: Explanation Response: Verbalizes Understanding, Demonstrated Understanding Mobility Training, taught by Sandi John OT at 07/06/2024 3:55 PM.Learner: Patient Readiness: Acceptance Method: Explanation Response: Verbalizes Understanding, Demonstrated Understanding ADL Training, taught by Sandi John OT at 07/06/2024 3:55 PM.Learner: Patient Readiness: Acceptance Method: Explanation Response: Verbalizes Understanding, Demonstrated Understanding Occupational Therapy Plan of Care, taught by Sandi John OT at 07/06/2024 3:55 PM. Learner: Patient Readiness: Acceptance Method: Explanation Response: Verbalizes Understanding, Demonstrated Understanding Education CommentsNo comments found. Goals:Encounter Goals Encounter Goals (Active) Client will safely complete toilet t/f with Brian and manage clothing and nomore than 2 verbal cues. Start: 07/06/24 Expected End: 07/13/24 Pt. will complete grooming tasks standing at the sink for at least 10 minutes with Brian demonstrating increased IND with OOB ADLs. Start: 07/06/24 Expected End: 07/13/24 LTG - Patient will ambulate community distance using RW demonstrating improved IND with mobility and endurance. Start: 07/06/24 Expected End: 07/13/24 Within 1 week of starting therapy, the patient and/or family/caregiver will demonstrate independence and be compliant in a written HEP in order to maximize gains made during therapy. Start: 07/06/24 Expected End: 07/13/24 Treatment Note: If this is the last documented treatment, then it will signify discharge from acute care prior to discharge from the therapy service and will serve as the discharge summary. Sandi John OT, OTD, PCBIS * Tino Calvillo MD - 07/06/2024 12:41 PM CDT I saw and examined the patient with Saul Judd on 07/06/24 and agree with plan and assessment as above. I personally reviewed the labs, diagnostic imaging and documentation and discussed the plan of care with team and patient Evelia Casas is a 59 y.o. female patient with has no past medical history on file.. The patient presented to the hospital with STEMI Subjective: No acute events overnight BP (!) 88/63 | Pulse 87 | Temp 37.2 ?C (99 ?F) (Oral) | Resp 14 | Ht 1.422 m (4' 8") | Wt 65 kg (143 lb 4.8 oz) | SpO2 98% | BMI 32.13 kg/m? Intake/Output Summary (Last 24 hours) at 07/06/2024 1241 Last data filed at 07/06/2024 0100 Gross per 24 hour Intake 390 ml Output 900 ml Net -510 ml General: alert, oriented, not in distress Neck;no JVD Lungs: CTABL Heart: S1,S2, no murmur Abdomen: soft, non tender, non distended, BS+ Extremities: no Lower extremity edema Skin: no rashes Labs: Reviewed STEMI, inferior/inferolateral - kotlik Lcx intervened - on DAPT. Ideally would like to be on brilinta, will discuss with pharmacy about affordability. - no beta jalyn currently due to marginal pressures - monitor MR - echo lateral wall is down. EF appears to be around 40-45% - lipid panel pending. BP were not real. On checking on cuff with multiple checks at the bedside BP is in the 110's systolic. Severe MR - likely ischemic, hopeful for improvement given now revascularization CAD s/p CABG with REYES to LAD and SVG to OM Abdominal transplant - pancreas transplant, kidney transplant - consulted for immunosuppressive management. - on tacro and mmf at home Paroxysmal afib - will need to see about the history? - need to discuss the need for DOAC. Presumably was on DOAC, but after brain bleed stopped. Discussed the high risk of stroke. - Discussed about being considered for a watchman device sooner than later. - would like to follow with Dr. Guevara her primary cardiology. Hx of Prior hemorrhagic stroke - unclear etiology PAD, distal disease - ultrasound pending B/l carotid stenosis Type 1 DM - endo following HLP Thyroid disease, hypothyroidism Adrenal insufficiency - on stress dose steroids Transfer to [facility] Tino Calvillo MD * Saul Judd MD - 07/06/2024 12:21 PM CDT Subjective History Of Present Illness Ms. Evelia Casas is a 59 y.o. woman with past medical history of type 1 diabetes mellitus (uncontrolled), hypothyroidism, adrenal insufficiency, hepatitis C infection, pancreas transplant, kidney transplant, prior hemorrhagic stroke. She has a past cardiac history of Coronary artery disease (CAD) 2 vessel coronary artery bypass graft (2v-CABG) with grafts from left internal mammillary artery to left anterior descending artery (REYES-LAD), patent, and saphenous vein graft to obtuse marginal (SVG-OM), previously occluded Hypertension Hyperlipidemia Non-valvular atrial fibrillation ([id number]), off anticoagulation Patient was admitted for an inferior STEMI, with a left circumflex artery (LCX) culprit. En route (since her door to balloon time was anticipated to be > 120 minutes), she received tenecteplase prior to her left heart catheterization (LHC) in addition to Plavix 600 mg x1, heparin 4000 units IV bolus, and aspirin 325 mg PO x1. For her atrial fibrillation with rapid ventricular rate, she was started on a diltiazem drip, which was discontinued due to soft blood pressures. After arriving at [facility], she underwent LHC with PCI to her LCX with 2x drug eluting stents (KYE). Patient was transferred to the [facility] ICU as overflow. Over the day, her blood pressures were soft, likely due to an inappropriately sized blood pressure cuff. Groin US and CT AP were negative for access site complications. Endocrine evaluated her and recommended adjusting her insulin dose (glargine 20 units daily with lispro 6 units TID). and giving hydrocortisone 30 mg in the AM on 07/06/24 prior to resuming her home 20/5 mg dose. Her lower extremity ultrasounds demonstrated bilateral peripheral vascular disease, pending ROSALIO's and upper extremity arterial ultrasound. Pending pharmacy evaluation if patient can afford ticagrelor at discharge prior to transitioning. ObjectiveLast Recorded Vitals Blood pressure (!) 88/63, pulse 87, temperature 37.2 ?C (99 ?F), temperature source Oral, resp. rate 14, height 1.422 m (4' 8"), weight 65 kg (143 lb 4.8 oz), SpO2 98%. Body mass index is 32.13 kg/m?. Physical Exam:Constitutional: Appearance: She is obese. HENT: Head: Normocephalic and atraumatic. Eyes: General: Right eye: No discharge. Left eye: No discharge. Conjunctiva/sclera: Conjunctivae normal. Cardiovascular: Rate and Rhythm: Normal rate and regular rhythm. Pulses: Normal pulses. Pulmonary: Effort: Pulmonary effort is normal. Breath sounds: Normal breath sounds. Abdominal: General: There is no distension. Tenderness: There is no abdominal tenderness. Musculoskeletal: General: Normal range of motion. Right lower leg: No edema. Left lower leg: No edema. Skin: General: Skin is warm and dry. Capillary Refill: Capillary refill takes less than 2 seconds. Neurological: General: No focal deficit present. Mental Status: She is alert and oriented to person, place, and time. Psychiatric: Mood and Affect: Mood normal. Behavior: Behavior normal. Labs- Hemoglobin A1c 9.5% - TSH 0.374, T4 1.09 - Tacrolimus 4.0 (drawn at midnight) - CBC: WBC 12.74, normal hemoglobin and platelet counts - BMP: Unremarkable Left heart catheterization (07/05/24)Findings: LM: Mild distal left main disease. LAD: AIRCRAFT DELIVERY CHECKER at the mid segment. LCX: Ostial 90% stenosis. RCA: dominant, AIRCRAFT DELIVERY CHECKER at the proximal segment, collaterals supplied by the distal LAD. REYES-mid LAD patent and supplies collaterals to the PDA. Intervention: LCX Syntax segment: 18,19 Pre- intervention: 90% stenosis, ELBERT 2 Post intervention: 0% stenosis, ELBERT 3 Conclusion: STEMI with culprit proximal LCX stenosis and significant chronic calcification of the proximal and mid LCX s/p PCI with two overlapping Orsiro stents a 3.0 x 13 mm distally and a 3.5 x 15 mm proximally (post-dilated with 4.0mm NC balloon to 16 ADINA proximally and 3.5 distally). Transthoracic echocardiogram (07/05/24)Definity contrast was given for endocrdial definition.Left Ventricle: Mildly reduced systolic function with an estimated EF of 45 - 50%. No thrombus was noted in the left ventricle Mitral Valve: Mitral valve is structurally normal. No leaflet calcification in the mitral valve. Mild mitral regurgitation present. Tricuspid Valve: Mild tricuspid regurgitation present. RVSP is 28.00 mmHg. Compared to a study dated 09/17/21 the findings are similar Assessment & Plan STEMI (ST elevation myocardial infarction) ([facility]) (Resolved: 07/06/2024) CAD (coronary artery disease) - s/p 2x KYE to ostial/proximal LCX 07/05/24 - Antiplatelet: Continue DAPT (aspirin 81mg daily, plavix 75mg daily) for at least 1 year. Consider transitioning to ticagrelor tomorrow if patient can afford - Statin: Atorvastatin 80mg nightly (follow up LDL and add Zetia if LDL > 55-70, adjust LDL goal based on lab) Paroxysmal A-fib (CMS/HCC) (HCC) - Refer patient for Watchman outpatient (history of hemorrhagic stroke) - Patient in sinus rhythm. No need for rate/rhythm control at this time Peripheral vascular disease ([facility]) Carotid artery stenosis - See above for statin management - Follow up upper extremity arterial dopplers and lower extremity arterial doppler ROSALIO's (with toe pressures if ROSALIO > 1.4 since patient has DM) Hepatitis C - Follow up HCV RNA PCR Kidney transplant recipient Pancreas transplant status - Immunosuppression - Tacrolimus 1mg in the morning/0.5mg in the evening - Mycophenolate 250 mg PO q12h - Obtain tacrolimus level every morning at 5:30 AM Diabetes (HCC) - Start glargine 20 units daily, lispro 6 units before meals - Consulted endocrinology for recommedations - See above for statin management Adrenal insufficiency (HCC) - Give hydrocortisone 30 mg PO once this morning and then 5 mg PO this afternoon. - Tomorrow, continue hydrocortisone 20mg at AM and 5mg at 3 PM Hypothyroid - Continue synthroid 50mcg daily Family members:Son: [phone] Daughter: [phone] Mother: [phone] Current Diet: Adult Diet Carbohydrate Controlled; Carb choice 2500 lashonda * Johnathan Paulino NP - 07/06/2024 12:13 PM CDT Subjective Seen and examined at bedside. No new complaints per patient. Had some transient hypotension overnight Creatinine has taken a bump Objective Last Recorded Vitals Blood pressure (!) 88/63, pulse 87, temperature 37.2 ?C (99 ?F), temperature source Oral, resp. rate 14, height 1.422 m (4' 8"), weight 65 kg (143 lb 4.8 oz), SpO2 98%. Body mass index is 32.13 kg/m?. Physical Exam:Constitutional: Appearance: Normal appearance. HENT: Head: Normocephalic and atraumatic. Nose: Nose normal. Mouth/Throat: Mouth: Mucous membranes are moist. Pharynx: Oropharynx is clear. Eyes: Extraocular Movements: Extraocular movements intact. Conjunctiva/sclera: Conjunctivae normal. Pupils: Pupils are equal, round, and reactive to light. Cardiovascular: Rate and Rhythm: Regular rhythm. Pulmonary: Effort: Pulmonary effort is normal. Breath sounds: Normal breath sounds. Abdominal: Palpations: Abdomen is soft. Musculoskeletal: General: Normal range of motion. Cervical back: Normal range of motion and neck supple. Skin: General: Skin is warm and dry. Capillary Refill: Capillary refill takes less than 2 seconds. Neurological: General: No focal deficit present. Mental Status: He is alert and oriented to person, place, and time. Psychiatric: Mood and Affect: Mood normal. Behavior: Behavior normal. Assessment & PlanSTEMI (ST elevation myocardial infarction) (HCC) CAD (coronary artery disease) Kidney transplant recipient Pancreas transplant status Diabetes (HCC) Adrenal insufficiency (HCC) HypothyroidAllograft function - SPK 1988, kidney tx 1991, 2008, repeat pancreas tx 2003 - Cr 0.61 on admission, 1.0 this AM. Had some hypotension overnight, possibly suggesting a prerenal LISE. Immunosuppression- Home regimen: tacrolimus 1 mg q am and 0.5 in the evening and mycophenolate 250 mg BID - Continue Tacrolimus at current regimen Had a discussion with patient - unclear as to why her MMF had dosed lower especially in light of being a dual organ transplant - We will increase her MMF at this time to 750mg BID in light of having a lower Tacro trough - Continue to check Tacrolimus trough levels daily while admitted - Endocrine to manage Hydrocortisone dosing STEMI/CAD- Hx of CABG in 01/2020 (REYES-LAD, SVG-OM) - Patient presented to OSH ED with inferior STEMI, s/p 35 of TNK, then loaded with aspirin, plavix 600mg, 4,000 units of heparin en route to [facility] - Patient s/p 2 stents to ostial/proximal LCX 07/05/24 - continue aspirin 81mg daily, plavix 75mg daily DM- Type 1 DM since 5, Pancreas transplant X2, with rejection, she has been on insulin since July 2023 - Home regimen; Toujeo 20 units at night - Ongoing management per endocrine HLD- Continue home regimen: atorvastatin 80 mg at night Hypothyroidism- Continue home regimen: levothyroxine 50 mcg daily Adrenal Insufficiency- Etiology thought secondary to chronic steroid use in setting of immunosuppression - Continue home regimen: hydrocortisone 20 mg q am and hydrocortisone 5 mg at 3 pm Assessment and plan discussed with Dr. Garcia Current Diet: Adult Diet Carbohydrate Controlled; Carb choice 2500 lashonda Cosigned by Dylan Garcia MD at 07/06/2024 2:16 PM CDT Associated attestation - Dylan Garcia MD - 07/06/2024 2:16 PM CDT I have personally seen and examined the patient as detailed in Johnathan Paulino's note. His documentation reflects our collaborative physical exam, lab review, assessment and plan. Evelia had hypotension overnight which likely contributed to her acute kidney injury today. We will perform a kidney transplant ultrasound to evaluate vascular flow to the kidney transplant. Given that she has received multiple transplants and her pancreas function is insulin dependent, I am concerned she is under immunosuppressed so we will increase her mmf to 750 mg twice daily. Dylan Garcia MDTransplant Nephrology [id number] * Marta To RN - 07/06/2024 11:05 AM CDT Focused Wound Assessment Chief Complaint: Wound and ostomy eval and treat: Left pedal wound Location: HVI8.806/HVI8.806 General Assessment: Alertness alert Position in Semi Fowlers Nutrition Adequate PIP Devices Pillow Mobility Independent Bed Low Air Loss Mattress Continence Continent Wound Assessment: 1. Type of injury: Abrasion that is not new Measurements: 1 cm L x 1 cm W x 100% dry scab Undermining or tunneling: None Wound edges: attached Wound appearance: dry, dark scab that is almost ready to fall off Mickie wound: intact Exudate Volume: None Odor: None Pain: None Intervention/Education: The wound was assessed. Patient was positioned in Semi Fowlers. Wound treatment education was provided to the patient, caregiver, and nurse Recommendations: 1. Keep clean and dry and open to air 2. 3. Reposition patient in bed or chair to offload pressure Provide offloading boots Manage moisture in skin folds Optimize Nutrition Support Surface Recommended - per hospital bed algorithm: Low Air Loss Mattress Continue with current bed. Review: With Nursing, patient, caregiver and physician. Plan - Will remove from wound care follow up list. This wound is chronic and stable and scab almost ready to come off * Jamari Argueta, PT - 07/06/2024 11:00 AM CDT Evaluation and Treatment Note Patient Name: Evelia Casas Today's Date: 07/06/2024 Preferred Language: Peruvian Assessment & Plan Prior to admission, pt was indep with all bed mobility, transfers, and ambulation with use of Quad Cane over last month. Today, pt is CGA/SBA with all bed mobility, transfers, and ambulation with use of RW. Pt demonstrates decreased ambulation pace however safe throughout with no LOB or buckling. Pt presenting below functional baseline prior to admission today. At this time, pt can benefit from 1-2 more acute skilled PT sessions to address the above impairments and facilitate return to functional independence. Assessment: Prognosis: Good Evaluation/Treatment Tolerance: Patient tolerated treatment well Medical Staff Made Aware: Yes Strengths: Support of extended family/friends Plan: Treatment Plan/Goals Established with Patient/Caregiver: Yes Treatment/Interventions: Balance training, Bed mobility training, Caregiver training, Equipment training, Functional activities, Gait training, Manual therapy, Neuromuscular re-education, Pain management, Patient education, Positioning, Posture/Body mechanics baring, Stair training, Therapeutic exercises, Transfer training, Wheelchair assessment and management PT Plan: Skilled PT PT Frequency: 2-3 times per week until discharge PT Recommended Transfer Status: Stand by assist Subjective Pleasant, cooperative, and agreeable to PT. Current Problem: 59 y.o. female with past medical history including pancreas transplant, kidney transplant, CAD s/p CABG REYES-LAD, SVG-OM 01/2020, prior hemorrhagic stroke, bilateral carotid artery stenosis, depression, diabetes, GERD, Hep C, HLD, seizures, thyroid disease, HTN who presented from OSH for inferior STEMI. Patient says she began having chest pain yesterday which prompted her to go to the ED. ECG there showed inferior STEMI, A fib RVR. She was given full dose 35 of TNK and started on cardizem drip. En route on [facility], patient was additionally loaded with aspirin, plavix 600mg and given 4,000 units of heparin. En route, patient's BP 90-100s systolic thus cardizem was stopped with underlying sinus rhythm. Here, patient rates her chest pressure as a 3/10. Patient taken from [facility] immediately to environmental laboratory technician where she had angiogram and 2 stents to culprit ostial/proximal LCX to mid LCX. She will be transferred to [place] [id number] once the procedure is over. Pain: 0/10 Vital Signs: Patient Vitals for the past 24 hrs: BP MAP (mmHg) Pulse Resp SpO2 07/06/24 1200 111/64 81 79 (!) 25 98 % 07/06/24 1100 (!) 94/57 70 80 (!) 50 98 % 07/06/24 1000 (!) 94/51 67 79 (!) 24 99 % 07/06/24 0900 (!) 103/59 76 79 18 95 % 07/06/24 0853 -- -- 87 14 98 % 07/06/24 0800 (!) 88/63 71 81 (!) 37 93 % 07/06/24 0700 (!) 84/50 62 70 14 99 % 07/06/24 0600 (!) 119/58 81 71 12 98 % 07/06/24 0500 (!) 106/57 76 73 16 98 % 07/06/24 0400 (!) 91/54 68 72 18 100 % 07/06/24 0300 (!) 98/57 75 62 15 100 % 07/06/24 0200 (!) 106/57 79 67 15 100 % 07/06/24 0100 (!) 93/51 67 67 15 98 % 07/06/24 0010 101/65 79 66 22 99 % 07/06/24 0000 -- -- 66 22 100 % 07/05/24 2300 98/66 78 82 19 96 % 07/05/24 2238 -- -- 79 (!) 1 90 % 07/05/24 2200 (!) 109/56 76 84 (!) 28 98 % 07/05/24 2100 (!) 96/53 69 76 17 96 % 07/05/24 2000 (!) 99/59 75 75 16 95 % 07/05/24 1900 106/68 82 82 (!) 23 94 % 07/05/24 1800 101/63 76 76 15 98 % 07/05/24 1700 114/74 89 93 (!) 28 100 % 07/05/24 1600 101/66 79 73 15 100 % 07/05/24 1500 (!) 91/54 66 70 16 100 % Home Living: Type of Home: House Lives With: Family Home Adaptive Equipment: Quad cane Home Layout: One level Home Access: Level entry Bathroom Shower/Tub: Walk-in shower Bathroom Toilet: Standard Bathroom Equipment: Shower chair with back Prior Level of Function: Level of [place]: Ambulated with assistive device (comment) (Quad Cane) ADL Assistance: Independent Homemaking Assistance: Independent Vocational: Retired Objective General Visit Information: Family/Caregiver Present: Yes Others Present: Daughter = RN cleared pt for PT session = Pt received semifowler in bed with VSS = Educated on goals of PT session with verbalized understanding = Pt performed supine<>sit at EOB SBA = Dangled at EOB ~2 min for acclimation = Pt performed sit<>stand from EOB with RW CGA = Stood ~2 min for acclimation; back gown basil = Pt ambulated ~25 ft with RW CGA = Pt performed toilet transfer on<>off CGA with RW and railing = Pt ambulated ~25 ft with RW CGA = Pt performed stand<>sit at BSCh with RW CGA = Pt left sitting up in BSCh with VSS, call light in reach, and all personal needs met = RN notified of pt status and position Initial VS: 92/57 (69), 76 HR, 90 O2 Post VS: 123/62 (85), 79 HR, 100 O2 Precautions: LE Weight Bearing Status: FWB Medical Precautions: fall, cardiac, DVT prevent, standard Cognition: Overall Cognitive Status: Within Functional Limits Behavior/Cognition: Alert, Cooperative, Pleasant mood General Assessments: Activity Tolerance Activity Tolerance Endurance: Tolerates 30+ min exercise without fatigue Sitting Balance: Sits without support for more than 30 sec Early Mobility/Exercise Safety Screen: Proceed with mobilization - No exclusion criteria met Sensation Sensation Light Touch: RLE Intact, LLE Intact Balance- Sitting Static Sitting-Balance Support: Right upper extremity supported, Left upper extremity supported, Feet supported Level of Assistance: Supervision/touching assistance Balance- Standing Static Standing-Balance Support: Right upper extremity supported, Left upper extremity supported Static Standing-Level of Assistance: Supervision/touching assistance Static Standing-Comment/Number of Minutes: SBA with RW Functional Assessments: Bed Mobility Bed Mobility 1: Level of Assistance 1: Supervision/touching assistance Bed Mobility Comments 1: SBA Bed Mobility To/From: Supine to sit on EOB Assistive Devices And Adaptive Equipments: Head of bed elevated Transfers Transfers 1:Level of Assistance 1: Supervision/touching assistance Trials/Comments 1: CGA with RW Transfer To/From: Cut-zq-Xhkxb/Dlaci-bl-Ykl Assistive Devices And Adaptive Equipments: Walker, front-wheeled GaitGait Training Time Entry: 14 Gait Training Activity 1:Distance (enter in feet): ~25 ft x2 Gait Training Activity 1: Indoor surface Assistive Devices And Adaptive Equipments: Walker, front-wheeled Level of Assistance 1: Supervision/touching assistance Gait Training Activity 1 Comment: CGA with RW Extremity Assessments:Right Lower Extremity RLE Assessment RLE Assessment: Within Functional Limits Left Lower Extremity LLE AssessmentLLE Assessment: Within Functional Limits Activity Tolerance:Endurance: Tolerates 30+ min exercise without fatigue Sitting Balance: Sits without support for more than 30 sec Early Mobility/Exercise Safety Screen: Proceed with mobilization - No exclusion criteria met CognitionOverall Cognitive Status: Within Functional Limits Behavior/Cognition: Alert, Cooperative, Pleasant mood TreatmentGait training: Gait Training Time Entry: 14 Gait Training Activity 1:Distance (enter in feet): ~25 ft x2 Gait Training Activity 1: Indoor surface Assistive Devices And Adaptive Equipments: Walker, front-wheeled Level of Assistance 1: Supervision/touching assistance Gait Training Activity 1 Comment: CGA with RW AM-PAC Basic Mobility:Turning in bed without bedrails: None Lying on back to sitting on edge of flat bed: None Bed to chair: None Standing up from chair: A Little Walk in room: A Little Climbing 3-5 stairs: A Little Mobility Inpatient Raw Score: 21 JH-HLM Goal: 6 Mobility: Highest Level of Mobility Performed (JH-HLM)Walked 25 feet or more (i.e. walked outside of room) Patient Education:Education Documentation Mobility, taught by Jamari Argueta PT at 07/06/2024 2:43 PM. Learner: Patient Readiness: Acceptance Method: Explanation Response: Verbalizes Understanding Physical Therapy Plan of Care, taught by Jamari Argueta PT at 07/06/2024 2:43 PM. Learner: Patient Readiness: Acceptance Method: Explanation Response: Verbalizes Understanding Education CommentsNo comments found. Goal:Encounter Goals Encounter Goals (Active) Patient will progress supine<>sit using hospital bed features with Indep assistance and no verbal cues. Start: 07/06/24 Expected End: 08/05/24 Patient will progress to ambulate on even surface using LRAD or no AD >300 ft with Indep Assistance. Start: 07/06/24 Expected End: 08/05/24 Patient will progress sit<>stand using LRAD or no AD with Indep assistance and no verbal cues. Start: 07/06/24 Expected End: 08/05/24 Treatment Note: If this is the last documented treatment, then it will signify discharge from acute care prior to discharge from the therapy service and will serve as the discharge summary. Jamari Argueta PT * Juan C Pringle MD - 07/06/2024 8:00 AM CDT Name: Evelia Casas Medical record: [id number] Date: 07/06/2024 HISTORY: REASON FOR CONSULT: Critical care management following STEMI HPI: The patient is a pleasant 59-year-old female who was admitted to the CVICU of CCU overflow. She has a history of kidney and pancreatic transplant hypertension, diabetes, CHF, adrenal insufficiency, hep C, GERD, seizures, hyperlipidemia. She presented to a different hospital with inferior STEMI, A-fib with RVR. She was taken to the [facility] and per urgently from [facility] where she underwent 2 stents to ostial/proximal left circumflex. She was then brought to the cardiovascular intensive care unit, chest pain-free, on nasal cannula. Overnight events No adverse events overnight Chest pain over night, better now Currently on no drips Blood pressure is better In SR Abdominal CT without evidence of retroperitoneal hematoma Leukocytosis is slightly better RA sat is 97% PIVs SOCIAL HISTORY: Social History Socioeconomic History Marital status: Spouse name: Not on file Number of children: Not on file Years of education: Not on file Highest education level: Not on file Occupational History Not on file Tobacco Use Smoking status: Not on file Smokeless tobacco: Not on file Substance and Sexual Activity Alcohol use: Not on file Drug use: Not on file Sexual activity: Not on file Other Topics Concern Not on file Social History Narrative Not on file Social Drivers of Health Financial Resource Strain: High Risk (03/09/2024) Received from [facility] Overall Financial Resource Strain (CARDIA) Difficulty of Paying Living Expenses: Hard Food Insecurity: No Food Insecurity (07/05/2024) Hunger Vital Sign Worried About Running Out of Food in the Last Year: Never true Ran Out of Food in the Last Year: Never true Transportation Needs: No Transportation Needs (07/05/2024) PRAPARE - Transportation Lack of Transportation (Medical): No Lack of Transportation (Non-Medical): No Physical Activity: Insufficiently Active (03/09/2024) Received from [facility] Exercise Vital Sign Days of Exercise per Week: 1 day Minutes of Exercise per Session: 10 min Stress: Not on file Social Connections: Unknown (08/08/2022) Received from [facility] Social Connection and Isolation Panel [NHANES] Frequency of Communication with Friends and Family: More than three times a week Frequency of Social Gatherings with Friends and Family: Not on file Attends Voodoo Services: Not on file Active Member of Clubs or Organizations: Not on file Attends Club or Organization Meetings: Not on file Marital Status: Intimate Partner Violence: Not on file Housing Stability: Low Risk (07/05/2024) Housing Stability Vital Sign Unable to Pay for Housing in the Last Year: No Number of Times Moved in the Last Year: 0 Homeless in the Last Year: No ALLERGIES: Allergies Allergen Reactions Morphine REVIEW OF SYSTEMS: No fever chills hemoptysis GI or urinary symptoms. MEDICATIONS: Scheduled Meds: aspirin, 81 mg, Oral, Daily clopidogrel, 75 mg, Oral, Daily [START ON 07/07/2024] hydrocortisone, 20 mg, Oral, Daily hydrocortisone, 30 mg, Oral, Daily [START ON 07/07/2024] hydrocortisone, 5 mg, Oral, q24h insulin glargine, 20 Units, Subcutaneous, Every evening insulin lispro, 6 Units, Subcutaneous, TID with meals mycophenolate, 250 mg, Oral, BID sodium chloride, 10 mL, Intravenous, q12h MICAELA tacrolimus, 0.5 mg, Oral, Daily tacrolimus, 1 mg, Oral, q AM Continuous Infusions: PRN Meds:. PRN medications: acetaminophen, calcium gluconate, dextrose, dextrose, fentaNYL, glucagon, insulin lispro, iodixanol, lidocaine, magnesium sulfate, midazolam (PF), nitroglycerin, potassium & sodium phosphates OR potassium & sodium phosphates, potassium chloride OR potassium chloride OR potassium chloride OR Potassium chloride, sodium chloride, sodium phosphates 45 mmol in sodium chloride 0.9 % 100 mL IVPB PHYSICAL EXAM:VITAL SIGNS: Body mass index is 32.13 kg/m?. BP (!) 119/58 | Pulse 71 | Temp 37.2 ?C (99 ?F) (Oral) | Resp 12 | Ht 1.422 m (4' 8") | Wt 65 kg (143 lb 4.8 oz) | SpO2 98% | BMI 32.13 kg/m? Gen: not in distressHead: atraumatic Mouth: moist oral mucosa Neck: no JVD Chest: bilateral air entry, no wheezes, no crackles Heart: normal rate, regular rhythm, normal S1, S2, no murmurs, rubs or extra cardiac sounds Abdomen: soft, non-tender, non-distended Extremities: no cyanosis, no edema Pulses: present in all extremities Neuro: alert and oriented, moving all extremities Skin: warm Psych: normal mood LABS: Results from last 7 daysLab Units 07/05/24 0851 BNP pg/mL 52 Labs:Last ABG Last CBC Result Last Lab Result Automated Differential Collection Time: 07/06/24 12:09 AM Result Value Ref Range Segs % 88.4 (H) 40.9 - 70.4 % Lymphs % 6.8 (L) 15.3 - 46.4 % Monos % 4.2 3.9 - 10.9 % Eos % 0.0 (L) 0.3 - 4.1 % Basos % 0.1 (L) 0.2 - 1.3 % Immature Grans % 0.5 0.1 - 1 % Segs # 11.26 (H) 2.03 - 7.09 10*3/uL Lymphs # 0.87 (L) 1.09 - 3.65 10*3/uL Monos # 0.53 0.27 - 0.78 10*3/uL Eos # 0.00 (L) 0.02 - 0.33 10*3/uL Basos # 0.01 0.01 - 0.09 10*3/uL Imm Grans # 0.07 0.01 - 0.07 10*3/uL Complete Blood Count Collection Time: 07/06/24 12:09 AM Result Value Ref Range WBC 12.74 (H) 4.15 - 10.55 10*3/uL RBC 4.86 3.74 - 5.22 10*6/uL NRBC % 0.0 0 /100 WBC Hgb 14.8 10.8 - 14.8 g/dL Hct 46.8 (H) 33.9 - 45.4 % MCV 96.3 77.8 - 97.5 fL MCH 30.5 24.9 - 32.6 pg MCHC 31.6 30.1 - 35.0 g/dL RDW - SD 48.8 37.6 - 49.1 fL Plt Count 219 191 - 422 10*3/uL MPV 9.4 9.0 - 12.6 fL Last BMP or CMP ResultLast Lab Result Basic Metabolic Panel Collection Time: 07/06/24 12:09 AM Result Value Ref Range Glucose Lvl 242 (H) 70 - 99 mg/dL BUN 22 9 - 23 mg/dL Creatinine Lvl 1.00 0.55 - 1.02 mg/dL Sodium Lvl 143 136 - 145 mEq/L Potassium Lvl 4.8 (H) 3.4 - 4.5 mEq/L Chloride Lvl 107 98 - 107 mEq/L CO2 Lvl 27.7 20.0 - 31.0 mEq/L Anion Gap 13.1 10.0 - 20.0 mEq/L Calcium Lvl 8.9 8.3 - 10.6 mg/dL eGFR 64 >60 mL/min/1.73m2 Culture ResultsNo results found for the last 90 days. imagingImages were reviewed. ECHO:Transthoracic echo (TTE) complete 07/05/2024 Interpretation SummaryDefinity contrast was given for endocrdial definition.Left Ventricle: Mildly reduced systolic function with an estimated EF of 45 - 50%. No thrombus was noted in the left ventricle Mitral Valve: Mitral valve is structurally normal. No leaflet calcification in the mitral valve. Mild mitral regurgitation present. Tricuspid Valve: Mild tricuspid regurgitation present. RVSP is 28.00 mmHg. Compared to a study dated 09/17/21 the findings are similar ASSESSMENT/PLAN: STEMIAcute respiratory insufficiency Diabetes Hyperglycemia Adrenal insufficiency History of kidney and pancreatic transplant PLAN: Oxygen if needed to keep saturation above 92%Stress dose steroid, endocrinology was consulted Back on tacrolimus and CellCept Aspirin and Plavix Start Statin Continue Lantus, endocrinology is following She can be moved to IMU level Discussed with the ICU team on rounds * Kati Palmer LCSW - 07/05/2024 9:31 AM CDT CASE MANAGEMENT ROUTINE DISCHARGE PLAN NOTE LOS: 0 Barriers to Discharge: O2 4L, s/p PCI this AM. DISCHARGE PLAN A: Home DISCHARGE PLAN B: Home with home health MARIBEL: 5-7 days [id number] 16:37:40Pending Results Scheduled Orders Name Type Priority Associated Diagnoses Order Schedule Assess post-sheath cath site Wound Ostomy Routine Until discontinu ed until discontinued starting 07/05/2024 Site care Wound Ostomy Routine Until discon tinued until discontinued starting 07/05/2024 Assess cath site pre-sheath removal Wound Ostomy Routine Until discont inued until discontinued starting 07/05/2024 POCT Glucose Point of Care Testing - Docked Device Routine 3 times daily before meals (Lab) for 30 Days starting 07/05/2024 until 08/04/2024, 17 completed POCT Glucose Point of Care Testing - Docked Device Routine Every 15 minutes as needed until discontinued starting 07/05/2024 Complete Blood Count w/Diff and Platelet Lab Routine Morning draw (Lab) until discontinued starting 07/06/2024, 6 completed Magnesium Level Lab Routine Morning d raw (Lab) until discontinued starting 07/06/2024, 6 completed Basic Metabolic Panel Lab Routine Morning draw (La b) until discontinued starting 07/06/2024, 6 completed Phosphorus Level Lab Routine Morning draw (Lab) until discontinued starting 07/06/2024, 6 completed Tacrolimus Level Lab Timed Now Then Every 24hr until discontinued starting 07/07/2024, 5 completed Hepatic Function Panel Lab Routine Morning draw (La b) until discontinued starting 07/09/2024, 3 completed Scheduled Referrals Name Type Priority Associated Diagnoses Orde r Schedule Cardiac Rehabilitation Phase II Referral Outpatient Referral Routine ST elevation myocardial infarction (STEMI), unspecified artery (HCC) Expected: 07/05/2024 (Approximate), Expires: 07/05/2025 Cardiac Rehabilitation Phase II Referral Outpatient Referral Routine ST elevation myocardial infarction (STEMI), unspecified artery (HCC) STEMI (ST elevation myocardial infarction) (HCC) S/P coronary artery stent placement Expected: 07/08/2024 (Approximate), Expires: 07/08/2025 Referral to Home Health (specify) Outpatient Referral Routine STEMI (ST elevation myocardial infarction) (HCC) Physical deconditioning Expected: 07/11/2024 (Approximate), Expires: 07/11/2025 Health Maintenance Due Date Last Done Comments CT Colonography 1963 Colonoscopy 1963 Colorectal Cancer Screening 1963 FIT-DNA 1963 FIT 1963 FOBT 1963 Medicare Annual Wellness (AWV) 1963 Sigmoidoscopy 1963 Diabetes: Foot Exam 1973 Diabetes: Retinopathy Screening 1973 DTaP/Tdap/Td Vaccines (1 - Tdap) 1982 Hepatitis A Vaccines (1 of 2 - Risk 2-dose series) 1982 Pneumococcal Vaccine: 50+ Years (1 of 2 - PCV) 1982 Pneumococcal Vaccine: Pediatrics (0 to 5 Years) and At-Risk Patients (6 to 64 Years) (1 of 2 - PCV) 1982 Zoster Vaccines (1 of 2) 1982 Pap Smear 02/22/1984 Hepatitis B Vaccines (1 of 3 - Risk 3-dose series) 2023 Respiratory Syncytial Virus (RSV) Adult Series (1 - Risk 60-74 years 1-dose series) 2023 Diabetes: Hemoglobin A1C 10/05/2024 07/06/2024, 03/30 Diabetes: Urine Protein Screening 11/25/2024 11/26/2023 Lipid Panel 07/07/2025 07/07/2024, 11/17/2023 Mammogram 11/10/2025 11/11/2023, 11/11/2023 Cervical Cancer Screening 10/01/2028 HPV/Cotest 10/01/2028 10/02/2023 Influenza Vaccine Completed 12/15/2023, , 01/12/2020, Additional history exists HIB Vaccines Aged Out No longer eligi ble based on patient's age to complete this topic HPV Vaccines Aged Out No longer eligi ble based on patient's age to complete this topic IPV Vaccines Aged Out No longer eligi ble based on patient's age to complete this topic Meningococcal Vaccine Aged Out No dorian jonathon eligible based on patient's age to complete this topic Rotavirus Vaccines Aged Out No longer eligible based on patient's age to complete this topic [facility] [id number] 16:37:40 [facility] [id number] 16:37:40 Diagnosis STEMI (ST elevation myocardial infarction) (HCC) - Primary Acute myocardial infarction, unspecified site, episode of care unspecified ST elevation myocardial infa rction (STEMI), unspecified artery (HCC) S/P coronary artery stent placement Postsurgical percutaneous transluminal coronary angioplasty status Physical deconditioning Muscular wasting and disuse atrophy, not elsewhere classified CAD (coronary artery disease) Coronary atherosclerosis of unspecified type of vessel, kotlik or graft Kidney transplant recipient Pancreas transplant status Diabetes (HCC) Type II or unspecified type diabetes mellitus without mention of complication, not stated as uncontrolled Adrenal insufficiency (HCC) Glucocorticoid deficiency Hypothyroid Unspecified hypothyroidism Paroxysmal A-fib (CMS/HCC) ( HCC) Peripheral vascular disease (HCC) Unspecified peripheral vascular disease Carotid artery stenosis Occlusion and stenosis of carotid artery without mention of cerebral infarction Hepatitis C Unspecified viral hepatitis C without hepatic coma Hypoglycemia Hypoglycemia, unspecified STEMI (ST elevation myocardial infarction) (HCC) Acute myocardial infarction, unspecified site, episode of care unspecified [facility] [id number] 16:37:40 [facility] [id number] 14:51:13 Images from the original note were not included. [id number] Atorvastatin Brand Name(s): Atorvaliq?, Lipitor?, Caduet? (as a combination product containing Amlodipine, Atorvastatin), Lipqozet? (as a combination product containing Atorvastatin, Ezetimibe), Liptruzet? (as a combination product containing Atorvastatin, Ezetimibe); also available generically WHY is this medicine prescribed? Atorvastatin is used together with diet, weight loss, and exercise to reduce the risk of heart attack and stroke and to decrease the chance that heart surgery will be needed in people who have heart disease or who are at risk of developing heart disease. Atorvastatin is also used to decrease the amount of fatty substances such as low-density lipoprotein (LDL) cholesterol ('bad cholesterol') and triglycerides in the blood and to increase the amount of high-density lipoprotein (HDL) cholesterol ('good cholesterol') in the blood. Atorvastatin may also be used to decrease the amount of cholesterol and other fatty substances in the blood in children and teenagers 10 to 17 years of age who have familial heterozygous hypercholesterolemia (an inherited condition in which cholesterol cannot be removed from the body normally). Atorvastatin is in a class of medications called HMG-CoA reductase inhibitors (statins). It works by slowing the production of cholesterol in the body to decrease the amount of cholesterol that may build up on the encarnacion of the arteries and block blood flow to the heart, brain, and other parts of the body. Accumulation of cholesterol and fats along the encarnacion of your arteries (a process known as atherosclerosis) decreases blood flow and, therefore, the oxygen supply to your heart, brain, and other parts of your body. Lowering your blood level of cholesterol and fats with atorvastatin has been shown to prevent heart disease, angina (chest pain), strokes, and heart attacks. HOW should this medicine be used? Atorvastatin comes as a tablet and suspension (liquid) to take by mouth. The tablet is usually taken once a day with or without food. The suspension is usually taken once a day on an empty stomach (at least 1 hour before or 2 hours after a meal).Take atorvastatin at around the same time every day. Follow the directions on your prescription label carefully, and ask your doctor or pharmacist to explain any part you do not understand. Take atorvastatin exactly as directed. Do not take more or less of it or take it more often than prescribed by your doctor. Your doctor may start you on a low dose of atorvastatin and gradually increase your dose, not more than once every 2 to 4 weeks. If you are taking the suspension, do not use a household spoon to measure your dose. Use a properly marked measuring device such as a medicine spoon or oral syringe. Ask your doctor or pharmacist if you need help getting or using a measuring device. Continue to take atorvastatin even if you feel well. Do not stop taking atorvastatin without talking to your doctor. Are there OTHER USES for this medicine? This medication may be prescribed for other uses; ask your doctor or pharmacist for more information. What SPECIAL PRECAUTIONS should I follow? Before taking atorvastatin, ? tell your doctor and pharmacist if you are allergic to atorvastatin, any other medications, or any of the ingredients in atorvastatin tablets and suspension. Ask your pharmacist for a list of the ingredients. ? Tell your doctor and pharmacist what prescription and nonprescription medications, vitamins, nutritional supplements, and herbal products you are taking or plan to take while taking atorvastatin. Your doctor may need to change the doses of your medications or monitor you carefully for side effects. ? The following nonprescription products may interact with atorvastatin: cimetidine (Tagamet), and niacin. Be sure to let your doctor and pharmacist know that you are taking these medications before you start taking atorvastatin. Do not start any of these medications while taking atorvastatin without discussing with your healthcare provider. ? tell your doctor if you have or ever had liver disease. Your doctor will order laboratory tests to see how well your liver is working even if you do not think you have liver disease. Your doctor will probably tell you not to take atorvastatin if you have liver disease or if the tests show you may be developing liver disease. ? tell your doctor if you drink more than 2 alcoholic beverages daily, if you are 65 years of age or older, and if you have or have ever had muscle aches or weakness, diabetes, seizures, low blood pressure, or thyroid or kidney disease. ? tell your doctor if you are or plan to become . If you become while taking atorvastatin, stop taking atorvastatin and call your doctor immediately. Atorvastatin may harm the fetus. ? tell your doctor if you are or plan to breastfeed. You should not breastfeed while you are taking this medication. ? if you are having surgery, including dental surgery, tell the doctor or dentist that you are taking atorvastatin. If you are hospitalized due to serious injury or infection, tell the doctor who treats you that you are taking atorvastatin. ? ask your doctor about the safe use of alcoholic beverages while you are taking atorvastatin. Alcohol can increase the risk of serious side effects. What SPECIAL DIETARY instructions should I follow? Eat a low-fat, low-cholesterol diet. Be sure to follow all exercise and dietary recommendations made by your doctor or dietitian. You can also visit the National Cholesterol Education Program (NCEP) website for additional dietary information at https://www.nhlbi.nih.gov/health/public/heart/chol/chol_tlc.pdf. Avoid drinking large amounts [more than 1.2 liter (approximately 1 quart) per day] of grapefruit juice while taking atorvastatin. What should I do IF I FORGET to take a dose? If you miss a dose of the tablet, skip the missed dose and continue your regular dosing schedule. Do not take a double dose to make up for a missed one. If you miss a dose of the suspension, take the missed dose as soon as you remember it. However, if it is less than 12 hours until your next scheduled dose, skip the missed dose and continue your regular dosing schedule. Do not take a double dose to make up for a missed one. What SIDE EFFECTS can this medicine cause? Some side effects can be serious. The following symptoms are uncommon, but if you experience any of them, call your doctor or get emergency medical help immediately: ? muscle pain, tenderness, or weakness ? lack of energy ? fever ? chest pain ? nausea ? extreme tiredness ? weakness ? unusual bleeding or bruising ? loss of appetite ? pain in the upper right part of the stomach ? flu-like symptoms ? dark colored urine ? yellowing of the skin or eyes ? rash ? hives ? itching ? difficulty breathing or swallowing ? swelling of the face, throat, tongue, lips, eyes, hands, feet, ankles, or lower legs ? hoarseness Atorvastatin may cause other side effects. Call your doctor if you have any unusual problems while taking this medication. If you experience a serious side effect, you or your doctor may send a report to the Food and Drug Administration's (FDA) MedWatch Adverse Event Reporting program online (https://www.fda.gov/Safety/MedWatch) or by phone ( ). What should I know about STORAGE and DISPOSAL of this medication? Keep this medication in the container it came in, tightly closed, and out of reach of children. Store it at room temperature and away from excess heat and moisture (not in the bathroom). Unneeded medications should be disposed of in special ways to ensure that pets, children, and other people cannot consume them. However, you should not flush this medication down the toilet. Instead, the best way to dispose of your medication is through a medicine take-back program. Talk to your pharmacist or contact your local garbage/recycling department to learn about take-back programs in your community. See the FDA's Safe Disposal of Medicines website (https://goo.gl/c4Rm4p) for more information if you do not have access to a take-back program. It is important to keep all medication out of sight and reach of children as many containers (such as weekly pill minders and those for eye drops, creams, patches, and inhalers) are not child-resistant and young children can open them easily. To protect young children from poisoning, always lock safety caps and immediately place the medication in a safe location - one that is up and away and out of their sight and reach. https://www.upandaway.org What should I do in case of OVERDOSE? In case of overdose, call the poison control helpline at . Information is also available online at https://www.poisonhelp.org/help. If the victim has collapsed, had a seizure, has trouble breathing, or can't be awakened, immediately call emergency services at [phone]. What OTHER INFORMATION should I know? Keep all appointments with your doctor and the laboratory. Your doctor may order certain lab tests during your treatment , especially if you develop symptoms of liver damage. Before having any laboratory test, tell your doctor and the laboratory personnel that you are taking atorvastatin. Do not let anyone else take your medication. Ask your pharmacist any questions you have about refilling your prescription. It is important for you to keep a written list of all of the prescription and nonprescription (ocht-wrc-oawlnsa) medicines you are taking, as well as any products such as vitamins, minerals, or other dietary supplements. You should bring this list with you each time you visit a doctor or if you are admitted to a hospital. It is also important information to carry with you in case of emergencies. This report on medications is for your information only, and is not considered individual patient advice. Because of the changing nature of drug information, please consult your physician or pharmacist about specific clinical use. The [employer] represents that the information provided hereunder was formulated with a reasonable standard of care, and in conformity with professional standards in the field. The [employer] makes no representations or warranties, express or implied, including, but not limited to, any implied warranty of merchantability and/or fitness for a particular purpose, with respect to such information and specifically disclaims all such warranties. Users are advised that decisions regarding drug therapy are complex medical decisions requiring the independent, informed decision of an appropriate health behavioral health care coordinator, and the information is provided for informational purposes only. The entire monograph for a drug should be reviewed for a thorough understanding of the drug's actions, uses and side effects. The [employer] does not endorse or recommend the use of any drug. The information is not a substitute for medical care. AHFS? Patient Medication Information?. ? Copyright, 2023. The [employer]?, [address], [address], [place], [place]. All Rights Reserved. Duplication for commercial use must be authorized by [facility]. Selected Revisions: October 17, 2023. AHFS? Patient Medication Information?. ? Copyright, 2024 [facility] [id number] 14:51:13 Images from the original note were not included. [id number] Insulin Glargine (rDNA origin) Injection Brand Name(s): Basaglar?, Lantus?, Rezvoglar? (Insulin Glargine-aglr), Semglee? (Insulin Glargine-yfgn), Toujeo?, Soliqua? (as a combination product containing Insulin Glargine and Lixisenatide), WHY is this medicine prescribed? Insulin glargine products are used to treat type 1 diabetes (condition in which the body does not produce insulin and therefore cannot control the amount of sugar in the blood). Insulin glargine products are also used to treat people with type 2 diabetes (condition in which the body does not use insulin normally and, therefore, cannot control the amount of sugar in the blood) who need insulin to control their diabetes. In people with type 1 diabetes, insulin glargine products must be used with another type of insulin (a short-acting insulin). In people with type 2 diabetes, insulin glargine products also may be used with another type of insulin or with oral medication(s) for diabetes. Insulin glargine is a long-acting, synthetic version of human insulin. Insulin glargine products work by replacing the insulin that is normally produced by the body and by helping move sugar from the blood into other body tissues where it is used for energy. It also stops the liver from producing more sugar. Over time, people who have diabetes and high blood sugar can develop serious or life-threatening complications, including heart disease, stroke, kidney problems, nerve damage, and eye problems. Using medication(s), making lifestyle changes (e.g., diet, exercise, quitting smoking), and regularly checking your blood sugar may help to manage your diabetes and improve your health. This therapy may also decrease your chances of having a heart attack, stroke, or other diabetes-related complications such as kidney failure, nerve damage (numb, cold legs or feet; decreased sexual ability in men and women), eye problems, including changes or loss of vision, or gum disease. Your doctor and other healthcare providers will talk to you about the best way to manage your diabetes. HOW should this medicine be used? Insulin glargine products come as a solution (liquid) to inject subcutaneously (under the skin). They are injected once a day. You should use insulin glargine products at the same time every day. Follow the directions on your prescription label carefully, and ask your doctor or pharmacist to explain any part you do not understand. Use insulin glargine products exactly as directed. Do not use more or less of it or use it more often than prescribed by your doctor. Never use insulin glargine products when you have symptoms of hypoglycemia (low blood sugar) or if you have checked your blood sugar and found it to be low. Insulin glargine products control diabetes but do not cure it. Continue to use insulin glargine products even if you feel well. Do not stop using insulin glargine products without talking to your doctor. Do not switch to another brand or type of insulin or change the dose of any type of insulin you are using without talking to your doctor. Always check the insulin label to make sure you received the right type of insulin from the pharmacy. Insulin glargine products come in vials and in dosing pens that contain cartridges of medication. Be sure you know what type of container your insulin glargine product comes in and what other supplies, such as needles, syringes, or pens, you will need to inject your medication. If your insulin glargine product comes in vials, you will need to use syringes to inject your dose. Ask your doctor or pharmacist to show you how to inject insulin glargine using a syringe. Ask your doctor or pharmacist if you have questions about the type of syringe you should use. If your insulin glargine product comes in pens, be sure to read and understand the software business analyst's instructions. Ask your doctor or pharmacist to show you how to use the pen. Follow the directions carefully, and always perform the safety test before use. Never reuse needles or syringes and never share needles, syringes, or pens. If you are using an insulin pen, always remove the needle right after you inject your dose. Discard needles and syringes in a puncture-resistant container. Ask your doctor or pharmacist how to dispose of the puncture-resistant container. Do not dilute insulin glargine products and do not mix insulin glargine products with any other type of insulin. You can inject your insulin glargine in your upper arm, thigh, or stomach. Never inject insulin glargine into a vein or muscle. Do not inject where the skin is thick, lumpy, tender, bruised, scaly, or hard, or into areas of skin where there are scars or skin is damaged. Change (rotate) the injection site within the chosen area with each dose; try to avoid injecting the same site more often than once every 1 to 2 weeks. Always check your insulin glargine product label to make sure you are using the correct insulin and look at your insulin glargine product before you inject it. It should be clear and colorless. Do not use your insulin glargine product if it is colored, cloudy, or contains solid particles, or if the expiration date on the bottle has passed. Do not use insulin glargine products in an external insulin pump. Ask your pharmacist or doctor for a copy of the software business analyst's information for the patient. Are there OTHER USES for this medicine? This medication may be prescribed for other uses; ask your doctor or pharmacist for more information. What SPECIAL PRECAUTIONS should I follow? Before using insulin glargine products, ? tell your doctor and pharmacist if you are allergic to insulin (Humulin, Novolin, others), insulin glargine, any other medications, or any of the ingredients of insulin glargine products. Ask your pharmacist for a list of the ingredients. ? tell your doctor and pharmacist what prescription and nonprescription medications, vitamins, nutritional supplements, and herbal products you are taking. Be sure to mention pioglitazone (Actos, in Actoplus Met, in Duetact, in Oseni) and rosiglitazone (Avandia). Your doctor may need to change the doses of your medications or monitor you carefully for side effects. ? tell your doctor if you have or have ever had nerve damage caused by your diabetes; heart failure; low blood levels of potassium; vision problems; or any other medical conditions, including heart, liver or kidney disease. ? tell your doctor if you are , plan to become , or are . If you become while using an insulin glargine product, call your doctor. ? if you are having surgery, including dental surgery, tell the doctor or dentist that you are using an insulin glargine product. ? alcohol may cause a change in blood sugar. Ask your doctor about the safe use of alcoholic beverages while you are using an insulin glargine product. ? ask your doctor what to do if you get sick, experience unusual stress, or change your diet, exercise, or activity schedule. These changes can affect your blood sugar and the amount of insulin you will need. ? ask your doctor how often you should check your blood sugar. Be aware that hypoglycemia may affect your ability to perform tasks such as driving and ask your doctor if you need to check your blood sugar before driving or operating machinery. What SPECIAL DIETARY instructions should I follow? Be sure to follow all exercise and dietary recommendations made by your doctor or dietitian. It is important to eat a healthful diet and to eat about the same amounts of the same kinds of food at about the same times each day. Skipping or delaying meals or changing the amount or kind of food you eat can cause problems with your blood sugar control. What should I do IF I FORGET to take a dose? Before you start using an insulin glargine product, ask your doctor what to do if you forget to use a dose or if you accidentally use an extra dose. Write these directions down so you can refer to them later. What SIDE EFFECTS can this medicine cause? Some side effects can be serious. If you experience these symptoms, call your doctor immediately or get emergency treatment: ? rash, hives, or itching all over the body ? wheezing ? difficulty breathing or swallowing ? fast pulse ? sweating ? swelling of the eyes, face, lips, tongue, or throat ? hoarseness ? weakness ? muscle cramps ? abnormal heartbeat ? sudden weight gain ? swelling of ankles or feet ? shortness of breath ? vision changes Insulin glargine products may cause other side effects. Call your doctor if you have any unusual problems while using this medication. What should I know about STORAGE and DISPOSAL of this medication? Keep this medication in the container it came in and out of reach of children. Store unopened insulin glargine product vials and pens in the refrigerator. Never allow insulin glargine products to freeze; do not use insulin glargine that has been frozen and thawed. Unopened refrigerated insulin glargine products can be stored until the date shown on the company's label. If a refrigerator is unavailable (for example, when on vacation), store the vials or pens at room temperature and away from direct sunlight and extreme heat. Unrefrigerated vials or pens can be used within 28 days; after that time they must be discarded. Opened vials can be stored for 28 days at room temperature or in the refrigerator. Opened pens must be stored at room temperature and may be used for up to 28 days after the first use. Dispose of any insulin that has been exposed to extreme heat or cold. It is important to keep all medication out of sight and reach of children as many containers (such as weekly pill minders and those for eye drops, creams, patches, and inhalers) are not child-resistant and young children can open them easily. To protect young children from poisoning, always lock safety caps and immediately place the medication in a safe location - one that is up and away and out of their sight and reach. https://www.[employer].org Unneeded medications should be disposed of in special ways to ensure that pets, children, and other people cannot consume them. However, you should not flush this medication down the toilet. Instead, the best way to dispose of your medication is through a medicine take-back program. Talk to your pharmacist or contact your local garbage/recycling department to learn about take-back programs in your community. See the FDA's Safe Disposal of Medicines website (https://goo.gl/c4Rm4p) for more information if you do not have access to a take-back program. What should I do in case of OVERDOSE? In case of overdose, call the poison control helpline at . Information is also available online at https://www.poisonhelp.org/help. If the victim has collapsed, had a seizure, has trouble breathing, or can't be awakened, immediately call emergency services at 911. Insulin glargine overdose can occur if you use too much insulin glargine or if you use the right amount of insulin glargine but eat less than usual or exercise more than usual. Insulin glargine overdose can cause hypoglycemia. If you have symptoms of hypoglycemia, follow your doctor's instructions for what you should do if you develop hypoglycemia. Other symptoms of overdose: ? loss of consciousness ? seizures What OTHER INFORMATION should I know? Keep all appointments with your doctor and the laboratory. Your blood sugar and glycosylated hemoglobin (HbA1c) should be checked regularly to determine your response to insulin glargine. Your doctor will also tell you how to check your response to this medication by measuring your blood sugar levels at home. Follow these instructions carefully. You should always wear a diabetic identification bracelet to be sure you get proper treatment in an emergency. Do not let anyone else use your medication. Ask your pharmacist any questions you have about refilling your prescription. It is important for you to keep a written list of all of the prescription and nonprescription (nsyz-qhr-zmtybub) medicines you are taking, as well as any products such as vitamins, minerals, or other dietary supplements. You should bring this list with you each time you visit a doctor or if you are admitted to a hospital. It is also important information to carry with you in case of emergencies. This report on medications is for your information only, and is not considered individual patient advice. Because of the changing nature of drug information, please consult your physician or pharmacist about specific clinical use. The [employer] represents that the information provided hereunder was formulated with a reasonable standard of care, and in conformity with professional standards in the field. [employer] makes no representations or warranties, express or implied, including, but not limited to, any implied warranty of merchantability and/or fitness for a particular purpose, with respect to such information and specifically disclaims all such warranties. Users are advised that decisions regarding drug therapy are complex medical decisions requiring the independent, informed decision of an appropriate health behavioral health care coordinator, and the information is provided for informational purposes only. The entire monograph for a drug should be reviewed for a thorough understanding of the drug's actions, uses and side effects. The [employer] does not endorse or recommend the use of any drug. The information is not a substitute for medical care. AHFS? Patient Medication Information?. ? Copyright, 2023. The [employer]?, [address], [address], [place], [place]. All Rights Reserved. Duplication for commercial use must be authorized by [facility]. Selected Revisions: November 11, 2021. AHFS? Patient Medication Information?. ? Copyright, 2024 [id number]:51:13 Images from the original note were not included. [id number] Insulin Lispro Injection Brand Name(s): Admelog?, Humalog?, Humalog? Mix50/50, Humalog? Mix75/25, Lyumjev?(insulin lispro-[facility]) WHY is this medicine prescribed? Insulin lispro injection products are used to treat type 1 diabetes (condition in which the body does not produce insulin and therefore cannot control the amount of sugar in the blood). Insulin lispro injection products are also used to treat people with type 2 diabetes (condition in which the body does not use insulin normally and therefore cannot control the amount of sugar in the blood) who need insulin to control their diabetes. In patients with type 1 diabetes, insulin lispro injection products are always used with another type of insulin, unless it is used in an external insulin pump. In patients with type 2 diabetes, insulin lispro injection products may be used with another type of insulin or with oral medication(s) for diabetes. Insulin lispro injection products are a short-acting, manmade version of human insulin. Insulin lispro injection products work by replacing the insulin that is normally produced by the body and by helping move sugar from the blood into other body tissues where it is used for energy. They also stops the liver from producing more sugar. Over time, people who have diabetes and high blood sugar can develop serious or life-threatening complications, including heart disease, stroke, kidney problems, nerve damage, and eye problems. Using medication(s), making lifestyle changes (e.g., diet, exercise, quitting smoking), and regularly checking your blood sugar may help to manage your diabetes and improve your health. This therapy may also decrease your chances of having a heart attack, stroke, or other diabetes-related complications such as kidney failure, nerve damage (numb, cold legs or feet; decreased sexual ability in men and women), eye problems, including changes or loss of vision, or gum disease.Your doctor and other healthcare providers will talk to you about the best way to manage your diabetes. HOW should this medicine be used? Insulin lispro injection products come as a solution (liquid) and a suspension (liquid with particles that will settle on standing) to inject subcutaneously (under the skin). Insulin lispro solution (Admelog, Humalog) is usually injected within 15 minutes before a meal or immediately after a meal. Insulin lispro suspension (Humalog Mix 75/25 or Humalog Mix 50/50) should be injected 15 minutes before a meal. Insulin lispro-aabc solution (Lyumjev) should be injected at the beginning of a meal or within 20 minutes after you start eating a meal.Your doctor will tell you how many times you should inject insulin lispro products each day. Follow the directions on your prescription label carefully, and ask your doctor or pharmacist to explain any part you do not understand. Use insulin lispro injection products exactly as directed. Do not use more or less of it or use it more often than prescribed by your doctor. Insulin lispro injection products may also be injected intravenously (into a vein) by a doctor or nurse in a healthcare setting. A doctor or nurse will carefully monitor you for side effects. Never use insulin lispro injection products when you have symptoms of hypoglycemia (low blood sugar) or if you have checked your blood sugar and found it to be low. Insulin lispro injection products control diabetes but do not cure it. Continue to use insulin lispro products even if you feel well. Do not stop using insulin lispro injection products without talking to your doctor. Do not switch to another brand or type of insulin or change the dose of any type of insulin you are using without talking to your doctor. Always check the insulin label to make sure you received the right type of insulin from the pharmacy. Insulin lispro injection products come in vials, cartridges that contain medication and are to be placed in dosing pens, and dosing pens that contain cartridges of medication. Be sure you know what type of container your insulin lispro comes in and what other supplies, such as needles, syringes, or pens you will need to inject your medication. If your insulin lispro injection product comes in vials, you will need to use syringes to inject your dose. Ask your doctor or pharmacist to show you how to inject an insulin lispro injection product using a syringe. Ask your doctor or pharmacist if you have questions about the type of syringe you should use. If your insulin lispro injection product comes in cartridges, you will need to purchase an insulin pen separately. Check the software business analyst's information for the patient to see what type of pen is right for the cartridge size you are using. Carefully read the instructions that come with your pen, and ask your doctor or pharmacist to show you how to use it. Ask your doctor or pharmacist if you have questions about the type of pen you should use. If your insulin lispro injection product comes in pens, be sure to read and understand the software business analyst's instructions. Ask your doctor or pharmacist to show you how to use the pen. Follow the directions carefully, and always prime the pen before use. Never reuse needles or syringes and never share needles, syringes, cartridges, or pens. If you are using an insulin pen, always remove the needle right after you inject your dose. Dispose of needles and syringes in a puncture-resistant container. Ask your doctor or pharmacist how to dispose of the puncture-resistant container. Your doctor may tell you to mix your insulin lispro solution with another type of insulin (NPH insulin) in the same syringe. Your doctor will tell you exactly how to do this. Always draw insulin lispro into the syringe first, always use the same brand of syringe, and always inject the insulin immediately after mixing. Insulin lispro injection products should not be mixed with insulin preparations other than NPH insulin. Insulin lispro suspension should not be mixed with any other insulin preparations. Your doctor may tell you to dilute insulin lispro injection products before injection to allow easier measurement of your dose. Your doctor will tell you exactly how to do this. You can inject your insulin lispro injection product in your thighs, stomach, upper arms, or buttocks. Change (rotate) the injection site within the chosen area with each dose. Do not inject where the skin is thick, lumpy, tender, bruised, scaly, hard, or into areas of skin where there are scars or skin is damaged. Always look at your insulin lispro product before you inject it. If you are using insulin lispro solution, the insulin should be clear and colorless. Do not use this type of insulin lispro product if it is colored, cloudy, or contains solid particles. If you are using insulin lispro suspension, the insulin should appear cloudy or milky after you mix it. Do not use this type of insulin product if there are clumps in the liquid or if there are solid white particles sticking to the bottom or encarnacion of the bottle. Do not use any type of insulin after the expiration date printed on the bottle has passed. Insulin lispro suspension must be gently shaken or rolled between your hands to mix before use. Ask your doctor or pharmacist if the type of insulin you are using should be mixed and how you should mix it if necessary. Insulin lispro solution (Admelog, Humalog U-100, Lyumjev U-100) also can be used with an external insulin pump. Before using insulin lispro products in a pump system, read the pump label to make sure the pump can be used for continuous delivery of fast-acting insulin. Read the pump manual for recommended reservoir and tubing sets, and ask your doctor or pharmacist to show you how to use the insulin pump. Do not dilute insulin lispro or mix it with any other type of insulin when using it with an external insulin pump. When using insulin lispro products with an external insulin pump, replace the insulin in the reservoir at least every 7 days (Admelog, Humalog U-100,) or at least every 9 days (Lyumjev U-100), and change the infusion set and infusion set insertion site at least every 3 days. If the infusion site is red, itchy, lumpy, or thickened, tell your doctor and use a different infusion site. When using insulin lispro solution in an external insulin pump, high blood sugar may occur quickly if the pump stops working properly or if the insulin in the pump reservoir is exposed to direct sunlight or temperatures greater than 98.6?F (37?C). High blood sugar may also occur if the tubing leaks or becomes blocked, disconnected, or kinks. If the problem cannot be found quickly and corrected, call your doctor right away. You may need to temporarily use insulin by subcutaneous injection (using syringes or an insulin pen). Make sure you have back-up insulin and any necessary supplies on hand, and ask your doctor or pharmacist to show you how to use them. This medication may be prescribed for other uses; ask your doctor or pharmacist for more information. What SPECIAL PRECAUTIONS should I follow? Before using an insulin lispro injection product, ? tell your doctor and pharmacist if you are allergic to insulin (Humulin, Novolin, others), insulin lispro, insulin lispro-aabc, any of the ingredients of insulin lispro injection products, or any other medications. Ask your pharmacist or check the software business analyst's patient information for a list of the ingredients. ? tell your doctor and pharmacist what prescription and nonprescription medications, vitamins, nutritional supplements, and herbal products you are taking while using an insulin lispro injection product. Your doctor may need to change the doses of your medications or monitor you carefully for side effects. ? the following nonprescription products may interact with insulin lispro injection product: niacin; salicylate pain relievers such as aspirin, choline magnesium trisalicylate (Trisalate), choline salicylate (Arthropan), magnesium salicylate (Jacques's, others), and salsalate (Argesic Disalcid, Salgesic). Be sure to let your doctor and pharmacist know that you are taking these medications before you start using insulin lispro injection product. Do not start any of these medications while using insulin lispro injection product without discussing with your healthcare provider. ? tell your doctor if you have or have ever had nerve damage caused by your diabetes; heart failure; low blood levels of potassium; or if you have any other medical conditions, including heart, liver, or kidney disease. Also tell your doctor if you frequently have episodes of hypoglycemia. ? tell your doctor if you are , plan to become , or are . If you become while using insulin lispro injection products, call your doctor. ? if you are having surgery, including dental surgery, tell the doctor or dentist that you are using an insulin lispro injection product. ? Alcohol may cause a change in blood sugar. Ask your doctor about the safe use of alcoholic beverages and prescription or over the counter medications that contain alcohol while you are using an insulin lispro injection product. ? ask your doctor what to do if you get sick, experience unusual stress, or change your diet, exercise, or activity schedule. These changes can affect your dosing schedule and the amount of insulin you will need. ? you should know when you first start using insulin lispro injection products or have a large dose increase you may experience blurry vision or other vision problems, or a painful, burning, weak or numb sensation in your hands, arms, feet, or legs. These side effects should go away, but tell your doctor if these effects continue. ? ask your doctor how often you should check your blood sugar. Be aware that hypoglycemia may affect your ability to perform tasks such as driving and ask your doctor if you need to check your blood sugar before driving or operating machinery. What SPECIAL DIETARY instructions should I follow? Be sure to follow all dietary recommendations made by your doctor or dietitian. It is important to eat a healthful diet, and to eat about the same amounts of the same kinds of food at about the same times each day. Skipping or delaying meals or changing the amount or kind of food you eat can cause problems with your blood sugar control. What should I do IF I FORGET to take a dose? Insulin lispro injection products must be injected shortly before or after a meal. If you remember your dose before or shortly after your meal, inject the missed dose right away. If some time has passed since your meal, follow the instructions provided by your doctor or call your doctor to find out whether you should inject the missed dose. Do not inject a double dose to make up for a missed one. What SIDE EFFECTS can this medicine cause? Some side effects can be serious. The following symptoms are uncommon, but if you experience any of them, call your doctor immediately: ? rash and itching, difficulty breathing, hives, wheezing, fast heartbeat, sweating, and feeling drowsy, dizzy or confused ? swelling of the face, tongue, or throat ? weakness, muscle cramps, abnormal heartbeat ? shortness of breath ? large weight gain in a short period of time ? swelling of the arms, hands, feet, ankles, or lower legs Insulin lispro may cause other side effects. Call your doctor if you have any unusual problems while using this medication. If you experience a serious side effect, you or your doctor may send a report to the Food and Drug Administration's (FDA) MedWatch Adverse Event Reporting program online (https://www.fda.gov/Safety/MedWatch) or by phone ( ). What should I know about STORAGE and DISPOSAL of this medication? Keep this medication in the container it came in and out of reach of children. Store unopened insulin lispro vials, cartridges, and pens in the refrigerator, but do not freeze them. Unopened refrigerated insulin lispro products can be stored until the date shown on the company's label. If a refrigerator is unavailable (for example, when on vacation), store the unopened vials, cartridges, or pens of insulin lispro solution (Admelog, Humalog, Lyumjev) at room temperature and away from direct sunlight and extreme heat. Unrefrigerated unopened vials, cartridges, and pens of insulin lispro solution (Admelog, Humalog, Lyumjev) can be used within 28 days, but after that time they must be discarded. Unrefrigerated unopened vials of insulin lispro suspension (Humalog 50/50, Humalog 70/25) can be used within 28 days and unrefrigerated, unopened pens can be used within 10 days; after that time they must be discarded. Opened vials of insulin lispro solution (Admelog, Humalog) can be stored for 28 days at room temperature or in the refrigerator. If your doctor tells you to dilute your insulin lispro injection product solution, a vial of diluted Humalog can be stored for 28 days in the refrigerator or 14 days at room temperature, a vial of diluted Admelog can be stored for 1 day (24 hours) in the refrigerator or 4 hours at room temperature, and a vial of diluted Lyumjev can be stored for 4 days in the refrigerator or 12 hours hours at room temperature. Opened insulin lispro solution (Admelog, Humalog) cartridges and pens may be stored at room temperature for up to 28 days; do not refrigerate them. Opened pens containing Humalog 50/50 or Humalog 75/25 may be stored at room temperature for up to 10 days; do not refrigerate them. Opened insulin lispro solution (Lyumjev) pens can be stored at room temperature for up to 28 days. Discard any insulin lispro product that has been exposed to extreme heat or cold. It is important to keep all medication out of sight and reach of children as many containers (such as weekly pill minders and those for eye drops, creams, patches, and inhalers) are not child-resistant and young children can open them easily. To protect young children from poisoning, always lock safety caps and immediately place the medication in a safe location - one that is up and away and out of their sight and reach. https://www.F[employer].org Unneeded medications should be disposed of in special ways to ensure that pets, children, and other people cannot consume them. However, you should not flush this medication down the toilet. Instead, the best way to dispose of your medication is through a medicine take-back program. Talk to your pharmacist or contact your local garbage/recycling department to learn about take-back programs in your community. See the FDA's Safe Disposal of Medicines website (https://goo.gl/c4Rm4p) for more information if you do not have access to a take-back program. What should I do in case of OVERDOSE? In case of overdose, call the poison control helpline at . Information is also available online at https://www.poisonhelp.org/help. If the victim has collapsed, had a seizure, has trouble breathing, or can't be awakened, immediately call emergency services at [phone]. Insulin lispro overdose can occur if you use too much insulin lispro injection products or if you use the right amount of insulin lispro injection product but eat less than usual or exercise more than usual. Insulin lispro overdose can cause hypoglycemia. If you have any symptoms of hypoglycemia, follow your doctor's instructions for what you should do if you develop hypoglycemia. Other symptoms of overdose: ? coma ? seizures What OTHER INFORMATION should I know? Keep all appointments with your doctor and the laboratory. Your doctor will order certain lab tests to check your body's response to insulin lispro injection products. Your doctor will also tell you how to check your response to insulin lispro injection products by measuring your blood sugar levels at home. Follow these instructions carefully. You should always wear a diabetic identification bracelet to be sure you get proper treatment in an emergency. Do not let anyone else use your medication. Ask your pharmacist any questions you have about refilling your prescription. It is important for you to keep a written list of all of the prescription and nonprescription ([id number]) medicines you are taking, as well as any products such as vitamins, minerals, or other dietary supplements. You should bring this list with you each time you visit a doctor or if you are admitted to a hospital. It is also important information to carry with you in case of emergencies. This report on medications is for your information only, and is not considered individual patient advice. Because of the changing nature of drug information, please consult your physician or pharmacist about specific clinical use. The [employer] represents that the information provided hereunder was formulated with a reasonable standard of care, and in conformity with professional standards in the field. The [employer] makes no representations or warranties, express or implied, including, but not limited to, any implied warranty of merchantability and/or fitness for a particular purpose, with respect to such information and specifically disclaims all such warranties. Users are advised that decisions regarding drug therapy are complex medical decisions requiring the independent, informed decision of an appropriate health behavioral health care coordinator, and the information is provided for informational purposes only. The entire monograph for a drug should be reviewed for a thorough understanding of the drug's actions, uses and side effects. The [employer] does not endorse or recommend the use of any drug. The information is not a substitute for medical care. AHFS? Patient Medication Information?. ? Copyright, 2023. The [employer]?, [address], [address], [place], [place]. All Rights Reserved. Duplication for commercial use must be authorized by [facility]. Selected Revisions: March 13, 2021. AHFS? Patient Medication Information?. ? Copyright, 2024 [facility]2025-04-14 14:51:13 Images from the original note were not included. [id number] Levothyroxine Brand Name(s): Levothroid?, Levo-T?, Levoxyl?, Synthroid?, Tirosint?, Unithroid?; also available generically IMPORTANT WARNING: Levothyroxine (a thyroid hormone) should not be used alone or along with other treatments to treat obesity or cause weight loss. Levothyroxine may cause serious or life-threatening problems when given in large doses, especially when taken with amphetamines such as amphetamine (Adzenys, Dyanavel XR, Evekeo), dextroamphetamine (Dexedrine), and methamphetamine (Desoxyn). Tell your doctor if you have any of the following symptoms while you are taking levothyroxine: chest pain, rapid or irregular heartbeat or pulse, uncontrollable shaking of a part of the body, nervousness, anxiety, irritability, difficulty falling asleep or staying asleep, shortness of breath, or excessive sweating. Talk to your doctor about the potential risks associated with this medication. WHY is this medicine prescribed? Levothyroxine is used to treat hypothyroidism (condition where the thyroid gland does not produce enough thyroid hormone). It is also used with surgery and radioactive iodine therapy to treat thyroid cancer. Levothyroxine is in a class of medications called hormones. It works by replacing thyroid hormone that is normally produced by the body. Without thyroid hormone, your body cannot function properly, which may result in poor growth, slow speech, lack of energy, excessive tiredness, constipation, weight gain, hair loss, dry, thick skin, increased sensitivity to cold, joint and muscle pain, heavy or irregular menstrual periods, and depression. When taken correctly, levothyroxine reverses these symptoms. HOW should this medicine be used? Levothyroxine comes as a tablet and a capsule to take by mouth. It usually is taken once a day on an empty stomach, 30 minutes to 1 hour before breakfast. Follow the directions on your prescription label carefully, and ask your doctor or pharmacist to explain any part you do not understand. Take levothyroxine exactly as directed. Do not take more or less of it or take it more often than prescribed by your doctor. Swallow capsules whole; do not chew or crush them. Do not remove the capsule from the package until you are ready to take it. Take the tablets with a full glass of water as they may get stuck in your throat or cause choking or gagging. If you are giving levothyroxine to an infant, child, or adult who cannot swallow the tablet, crush and mix it in 1 to 2 teaspoons (5 to 10 mL) of water. Only mix the crushed tablets with water; do not mix it with food or soybean formula. Give this mixture by spoon or dropper right away. Do not store it for later use. Your doctor will probably start you on a low dose of levothyroxine and gradually increase your dose. Levothyroxine controls hypothyroidism but does not cure it. It may take several weeks before you notice a change in your symptoms. Continue to take levothyroxine even if you feel well. Do not stop taking levothyroxine without talking to your doctor. Are there OTHER USES for this medicine? This medication may be prescribed for other uses; ask your doctor or pharmacist for more information. What SPECIAL PRECAUTIONS should I follow? Before taking levothyroxine, ? tell your doctor and pharmacist if you are allergic to levothyroxine, thyroid hormone, any other medications, or any of the ingredients in levothyroxine tablets or capsules. Ask your pharmacist for a list of the ingredients. ? tell your doctor and pharmacist what prescription and nonprescription medications, vitamins, nutritional supplements, and herbal products you are taking or plan to take while taking levothyroxine. ; Your doctor may need to change the doses of your medications or monitor you carefully for side effects. ? if you take calcium carbonate (Tums) or ferrous sulfate (iron supplement), take it at least 4 hours before or 4 hours after you take levothyroxine. If you take cholestyramine (Prevalite), colesevelam (Welchol), colestipol (Colestid), sevelamer (Renvela, Renagel), or sodium polystyrene sulfonate (Kayexalate), take it at least 4 hours after you take levothyroxine. ? the following nonprescription products may interact with levothyroxine: proton pump inhibitors such as esomeprazole (Nexium), lansoprazole (Prevacid), and omeprazole (Prilosec); antacids; simethicone; salicylate pain relievers such as aspirin and aspirin-containing products, choline magnesium trisalicylate, choline salicylate (Arthropan), diflunisal (Dolobid), magnesium salicylate (Jacques's, others), and salsalate (Argesic, Disalcid, Salgesic); niacin; nonsteroidal anti-inflammatory medications (NSAIDs) such as ibuprofen (Advil, Motrin) and naproxen (Aleve, Naprosyn). Be sure to let your doctor and pharmacist know that you are taking these medications before you start taking levothyroxine. Do not start any of these medications while taking levothyroxine without discussing with your healthcare provider. ? tell your doctor if you have adrenal insufficiency (condition in which the adrenal glands do not produce enough of certain hormones needed for important body functions). Your doctor may tell you not to take levothyroxine. ? tell your doctor if you have recently received radiation therapy or if you have or have ever had diabetes; hardening of the arteries (atherosclerosis); bleeding problems or anemia; porphyria (condition in which abnormal substances build up in the blood and cause problems with the skin or nervous system); osteoporosis (a condition in which the bones become thin and weak and break easily); pituitary gland (a small gland in the brain) disorders; any condition that makes it difficult for you to swallow; or kidney, heart, or liver disease. ? tell your doctor if you are , plan to become or are . If you become while taking levothyroxine, call your doctor. ? if you have surgery, including dental surgery, tell the doctor or dentist that you are taking levothyroxine. What SPECIAL DIETARY instructions should I follow? Some foods and beverages, particularly those that contain soybeans, walnuts, and dietary fiber, may affect how levothyroxine works for you. Talk to your doctor before eating or drinking these foods. Talk to your doctor about eating grapefruit and drinking grapefruit juice while taking this medication. What should I do IF I FORGET to take a dose? Take the missed dose as soon as you remember it. However, if it is almost time for the next dose, skip the missed dose and continue your regular dosing schedule. Do not take a double dose to make up for a missed one. What SIDE EFFECTS can this medicine cause? Some side effects can be serious. If you experience either of the following symptoms or those listed in the IMPORTANT WARNING section, call your doctor immediately or get emergency medical treatment: ? shortness of breath, wheezing, hives, itching, rash, flushing, stomach pain, nausea, or swelling of hands, feet, ankles, or lower legs If you experience a serious side effect, you or your doctor may send a report to the Food and Drug Administration's (FDA) [facility] Adverse Event Reporting program online (https://www.fda.gov/Safety/MedWatch) or by phone ( ). What should I know about STORAGE and DISPOSAL of this medication? Keep this medication in the container it came in, tightly closed, and out of reach of children. Store it at room temperature and away from excess heat and moisture (not in the bathroom). It is important to keep all medication out of sight and reach of children as many containers (such as weekly pill minders and those for eye drops, creams, patches, and inhalers) are not child-resistant and young children can open them easily. To protect young children from poisoning, always lock safety caps and immediately place the medication in a safe location - one that is up and away and out of their sight and reach. https://www.[employer].org Unneeded medications should be disposed of in special ways to ensure that pets, children, and other people cannot consume them. However, you should not flush this medication down the toilet. Instead, the best way to dispose of your medication is through a medicine take-back program. Talk to your pharmacist or contact your local garbage/recycling department to learn about take-back programs in your community. See the FDA's Safe Disposal of Medicines website (https://goo.gl/c4Rm4p) for more information if you do not have access to a take-back program. What should I do in case of OVERDOSE? In case of overdose, call the poison control helpline at . Information is also available online at https://www.poisonhelp.org/help. If the victim has collapsed, had a seizure, has trouble breathing, or can't be awakened, immediately call emergency services at 911. Symptoms of overdose may include the following: ? chest pain ? rapid or irregular heartbeat or pulse ? uncontrollable shaking of a part of the body ? nervousness ? anxiety ? irritability ? difficulty falling asleep or staying asleep ? shortness of breath ? excessive sweating ? confusion ? loss of consciousness ? seizure What OTHER INFORMATION should I know? Keep all appointments with your doctor and the laboratory. Your doctor will order certain lab tests to check your response to levothyroxine. Learn the brand name and generic name of your medication. Do not switch brands without talking to your doctor or pharmacist, as each brand of levothyroxine contains a slightly different amount of medication. Do not let anyone else take your medication. Ask your pharmacist any questions you have about refilling your prescription. It is important for you to keep a written list of all of the prescription and nonprescription (waiz-nba-umohjop) medicines you are taking, as well as any products such as vitamins, minerals, or other dietary supplements. You should bring this list with you each time you visit a doctor or if you are admitted to a hospital. It is also important information to carry with you in case of emergencies. This report on medications is for your information only, and is not considered individual patient advice. Because of the changing nature of drug information, please consult your physician or pharmacist about specific clinical use. The [employer] represents that the information provided hereunder was formulated with a reasonable standard of care, and in conformity with professional standards in the field. The [employer] makes no representations or warranties, express or implied, including, but not limited to, any implied warranty of merchantability and/or fitness for a particular purpose, with respect to such information and specifically disclaims all such warranties. Users are advised that decisions regarding drug therapy are complex medical decisions requiring the independent, informed decision of an appropriate health behavioral health care coordinator, and the information is provided for informational purposes only. The entire monograph for a drug should be reviewed for a thorough understanding of the drug's actions, uses and side effects. The [employer] does not endorse or recommend the use of any drug. The information is not a substitute for medical care. AHFS? Patient Medication Information?. ? Copyright, 2023. The [employer]?, [address], [address], [place], [place]. All Rights Reserved. Duplication for commercial use must be authorized by [facility]. Selected Revisions: May 14, 2018. AHFS? Patient Medication Information?. ? Copyright, 2024 [facility]2025-04-14 14:51:13 Images from the original note were not included. [id number] Mycophenolate Brand Name(s): CellCept?, Myfortic?, Myhibbin?; also available generically IMPORTANT WARNING: Risk of defects: Mycophenolate must not be taken by women who are or who may become . There is a high risk that mycophenolate will cause miscarriage (loss of the ) during the first 3 months of or will cause the baby to be born with defects (problems that are present at ). You should not take mycophenolate if you are or if you may become . You must have a negative test before starting your treatment with mycophenolate, again 8 to 10 days later, and at routine follow-up appointments. You must use acceptable control during your treatment, and for 6 weeks after you stop taking mycophenolate. Your doctor will tell you which forms of control are acceptable for you to use. Mycophenolate may decrease the effectiveness of oral contraceptives ( control pills), so it is especially important to use a second form of control along with this type of contraceptive. If you are a male with a female partner who may become , you should use acceptable control during treatment and for at least 90 days after your last dose. Do not donate sperm during your treatment and for at least 90 days after your last dose. Call your doctor right away if you think you or your partner, is or if you miss a menstrual period. Because of the possibility that your donation may go to a female who may be or become , do not donate blood during your treatment and for at least 6 weeks after your last dose. Risk of serious infections: Mycophenolate weakens the body's immune system and may decrease your ability to fight infection and increase the risk that you will get a serious infection, including severe fungal, bacterial, or viral infections that spread through the body. These infections may need to be treated in a hospital and may cause . Tell your doctor if you have any type of infection or if you think you may have any type of infection now. This includes minor infections (such as open cuts or sores), infections that come and go (such as cold sores), and chronic infections that do not go away. Also tell your doctor if you have or have ever had human immunodeficiency virus (HIV), acquired immunodeficiency syndrome (AIDS), hepatitis B virus infection (HBV; an ongoing liver infection), hepatitis C virus infection (HCV; an ongoing liver infection), or herpes zoster (shingles; a rash that can occur in people who have had chickenpox in the past). If you experience any of the following symptoms, call your doctor immediately: fever, sore throat, chills, or cough; unusual bruising or bleeding; pain or burning during urination; frequent urination; wound or sore that is red, warm, or won't heal; drainage from a skin wound; general weakness, extreme tiredness, or sick feeling; symptoms of the ''flu'' or a ''cold''; pain or swelling in the neck, groin, or armpits; white patches in the mouth or throat; cold sores; blisters; headache or earache; or other signs of infection. Mycophenolate may increase the risk that you will develop progressive multifocal leukoencephalopathy (PML; a rare infection of the brain that cannot be treated, prevented, or cured and that usually causes or severe disability). Tell your doctor if you have or have ever had PML, or another condition that affects your immune system. If you experience any of the following symptoms, call your doctor immediately: weakness on one side of the body or in the legs, difficulty or inability to control your muscles, confusion or difficulty thinking clearly, or a lack of interest or concern for usual activities or things you usually care about. Mycophenolate may increase your risk of developing certain types of cancer, including lymphoma (a type of cancer that develops in the lymph system) and skin cancer. Tell your doctor if you have or have ever had skin cancer or any other type of cancer. Avoid unnecessary or prolonged exposure to real and artificial sunlight (tanning beds, sunlamps) and light therapy and wear protective clothing, sunglasses, and sunscreen (with a SPF factor of 30 or above). This will help to decrease your risk of developing skin cancer. Call your doctor if you experience any of the following symptoms: pain or swelling in the neck, groin, or armpits; a new skin sore or bump; a change in the size or color of a mole; a brown or black skin lesion (sore) with uneven edges or one part of the lesion that does not look like the other; skin changes; sores that do not heal; unexplained fever; tiredness that does not go away; weight loss; or any other changes to your health. Your doctor or pharmacist will give you the software business analyst's patient information sheet (Medication Guide) when you begin treatment with mycophenolate and each time you refill your prescription. Read the information carefully and ask your doctor or pharmacist if you have any questions. You can also visit the Food and Drug Administration (FDA) website https://www.fda.gov/Drugs to obtain the Medication Guide. Keep all appointments with your doctor and the laboratory. Your doctor will order certain lab tests to check your body's response to mycophenolate. Talk to your doctor about the risks of taking mycophenolate. WHY is this medicine prescribed? Mycophenolate is used to prevent transplant organ rejection (attack of the new organ by the immune system) in people who have received kidney, heart, or liver transplants. Mycophenolate is in a class of medications called immunosuppressive agents. It works by weakening the body's immune system so it will not attack and reject the transplanted organ. HOW should this medicine be used? Mycophenolate comes as a capsule, a tablet, a delayed-release (releases the medication in the intestine) tablet, and a suspension (liquid) to take by mouth. It is usually taken twice a day on an empty stomach (1 hour before or 2 hours after eating or drinking), unless your doctor tells you otherwise. Take mycophenolate at about the same times every day, and try to space your doses about 12 hours apart. Follow the directions on your prescription label carefully, and ask your doctor or pharmacist to explain any part you do not understand. Take mycophenolate exactly as directed. Do not take more or less of it or take it more often than prescribed by your doctor. The medication in the delayed-release tablet (Myfortic) is absorbed differently by the body than the medication in the suspension, tablet, and capsule (CellCept, Myhibbin). These products cannot be substituted for each other. Each time you have your prescription filled, make sure that you have received the right product. If you think you received the wrong medication, talk to your doctor and pharmacist right away. Swallow the tablets, delayed-release tablets, and capsules whole; do not split, chew, or crush them. Do not open the capsules. If a capsule is accidentally opened, avoid contact with your skin or eyes and avoid breathing in the powder. If any contact occurs, wash the affected area well with soap and water; rinse eyes with water. Do not mix mycophenolate suspension with any other medication. Be careful not to spill the suspension or to splash it onto your skin. If you do get the suspension on your skin, wash the area well with soap and water. If you get the suspension in your eyes, rinse with plain water. Use wet paper towels to wipe up any spilled liquids. Mycophenolate helps prevent organ transplant rejection only as long as you are taking the medication. Continue to take mycophenolate even if you feel well. Do not stop taking mycophenolate without talking to your doctor. Are there OTHER USES for this medicine? Mycophenolate is also used to treat Crohn's disease (a condition in which the body attacks the lining of the digestive tract, causing pain, diarrhea, weight loss, and fever). Talk to your doctor about the possible risks of using this medication for your condition. This medication may be prescribed for other uses; ask your doctor or pharmacist for more information. What SPECIAL PRECAUTIONS should I follow? Before taking mycophenolate, ? tell your doctor and pharmacist if you are allergic to mycophenolate, mycophenolic acid, any other medications, or any of the ingredients in the mycophenolate or mycophenolic acid product you are taking. If you are taking mycophenolate suspension (Cellcept), tell your doctor and pharmacist if you are allergic to aspartame or sorbitol. If you are taking mycophenolate suspension (Myhibbin), tell your doctor if you are allergic to polysorbate 80 or sorbitol. Ask your pharmacist for a list of the ingredients. ? tell your doctor and pharmacist what other prescription and nonprescription medications, vitamins, nutritional supplements, and herbal products you are taking or plan to take. Also be sure tell your doctor if you stop taking any of your medications. Your doctor may need to change the doses of your medications or monitor you carefully for side effects. ? tell your doctor if you have or have ever had Lesch-Nyhan syndrome or Camille-Seegmiller syndrome (inherited diseases that cause high levels of a certain substance in the blood, joint pain, and problems with motion and behavior); anemia (a lower than normal number of red blood cells); neutropenia (less than normal number of white blood cells); ulcers or any disease that affects your stomach, intestines, or digestive system; or kidney or liver disease. ? tell your doctor if you are . ? you should know that mycophenolate may make you drowsy, confused, dizzy, lightheaded, or cause uncontrollable shaking of a part of the body. Do not drive a car or operate machinery until you know how this medication affects you. ? do not have any vaccinations without talking to your doctor. ? if you have phenylketonuria (PKU, an inherited condition in which a special diet must be followed to prevent damage to your brain that can cause severe intellectual disability), you should know that mycophenolate suspension (Cellcept) contains aspartame, a source of phenylalanine. What SPECIAL DIETARY instructions should I follow? Unless your doctor tells you otherwise, continue your normal diet. What should I do IF I FORGET to take a dose? If you are taking mycophenolate tablet, capsule, or suspension (Cellcept, Myhibbin) take the missed dose as soon as you remember it. However, if the next dose is less than 2 hours away, skip the missed dose and continue your regular dosing schedule. Do not take a double dose to make up for a missed one. If you are taking mycophenolate delayed release tablet (Myfortic) take the missed dose as soon as you remember it. However, if it is almost time for the next dose, skip the missed dose and continue your regular dosing schedule. Do not take a double dose to make up for a missed one. What SIDE EFFECTS can this medicine cause? Some side effects can be serious. If you experience any of the following symptoms or those listed in the IMPORTANT WARNING section, call your doctor immediately: ? sudden severe stomach pain, stomach pain that doesn't go away, or diarrhea ? difficulty breathing ? chest pain ? rash ? itching ? dizziness, fainting, pale skin, lack of energy, shortness of breath, or fast heartbeat ? unusual bleeding or bruising; vomiting or spitting up blood or brown material that resembles coffee grounds; bloody or black, tarry stools; or blood in urine ? fever, muscle or joint stiffness or pain Mycophenolate may cause other side effects. Call your doctor if you have any unusual problems while taking this medication. If you experience a serious side effect, you or your doctor may send a report to the Food and Drug Administration's (FDA) Open [employer]ch Adverse Event Reporting program online (https://www.fda.gov/Safety/MedWatch) or by phone ( ). What should I know about STORAGE and DISPOSAL of this medication? Keep this medication in the container it came in, tightly closed, and out of reach of children. Store it at room temperature and away from excess heat and moisture (not in the bathroom). Mycophenolate suspension may also be stored in a refrigerator. Do not freeze mycophenolate suspension. Dispose of any unused mycophenolate suspension after 60 days. Wear disposable gloves when handling the bottle and bottle cap of mycophenolate suspension. Unneeded medications should be disposed of in special ways to ensure that pets, children, and other people cannot consume them. However, you should not flush this medication down the toilet. Instead, the best way to dispose of your medication is through a medicine take-back program. Talk to your pharmacist or contact your local garbage/recycling department to learn about take-back programs in your community. See the FDA's Safe Disposal of Medicines website (https://goo.gl/c4Rm4p) for more information if you do not have access to a take-back program. It is important to keep all medication out of sight and reach of children as many containers (such as weekly pill minders and those for eye drops, creams, patches, and inhalers) are not child-resistant and young children can open them easily. To protect young children from poisoning, always lock safety caps and immediately place the medication in a safe location - one that is up and away and out of their sight and reach. https://www.upandaway.org What should I do in case of OVERDOSE? In case of overdose, call the poison control helpline at . Information is also available online at https://www.poisonhelp.org/help. If the victim has collapsed, had a seizure, has trouble breathing, or can't be awakened, immediately call emergency services at 911. Symptoms of overdose may include the following: ? stomach pain ? nausea ? vomiting ? heartburn ? diarrhea ? fever, sore throat, chills, cough and other signs of infection What OTHER INFORMATION should I know? Do not let anyone else take your medication. Ask your pharmacist any questions you have about refilling your prescription. It is important for you to keep a written list of all of the prescription and nonprescription (bwkb-pxr-gnfjgtn) medicines you are taking, as well as any products such as vitamins, minerals, or other dietary supplements. You should bring this list with you each time you visit a doctor or if you are admitted to a hospital. It is also important information to carry with you in case of emergencies. This report on medications is for your information only, and is not considered individual patient advice. Because of the changing nature of drug information, please consult your physician or pharmacist about specific clinical use. The [employer] represents that the information provided hereunder was formulated with a reasonable standard of care, and in conformity with professional standards in the field. The [employer] makes no representations or warranties, express or implied, including, but not limited to, any implied warranty of merchantability and/or fitness for a particular purpose, with respect to such information and specifically disclaims all such warranties. Users are advised that decisions regarding drug therapy are complex medical decisions requiring the independent, informed decision of an appropriate health behavioral health care coordinator, and the information is provided for informational purposes only. The entire monograph for a drug should be reviewed for a thorough understanding of the drug's actions, uses and side effects. The [employer] does not endorse or recommend the use of any drug. The information is not a substitute for medical care. AHFS? Patient Medication Information?. ? Copyright, 2023. The [employer]?, [address], [address], [place], [place]. All Rights Reserved. Duplication for commercial use must be authorized by [facility]. Selected Revisions: October 17, 2023. AHFS? Patient Medication Information?. ? Copyright, 2024 [facility] [id number] 14:51:13 Images from the original note were not included. [id number] Ticagrelor Brand Name(s): Brilinta?; also available generically IMPORTANT WARNING: Ticagrelor may cause serious or life-threatening bleeding. Tell your doctor if you currently have or have had a condition that causes you to bleed more easily than normal; if you have recently had surgery or been injured in any way; or if you have or have ever had a stomach ulcer; bleeding in your stomach, intestines, or brain; a stroke or mini-stroke; a condition that may cause bleeding in your intestines such as polyps (abnormal growths in the lining of the large intestine); or liver disease. Tell your doctor and pharmacist if you are taking medications that may cause bleeding including anticoagulants (blood thinners) such as warfarin (Coumadin, Jantoven); heparin; other medications to treat or prevent blood clots; or regular use of non-steroidal anti-inflammatory medications such as ibuprofen (Advil, Motrin) and naproxen (Aleve). Your doctor also will probably not prescribe ticagrelor if you are likely to need heart bypass surgery (a certain type of open heart surgery) right away. While you are taking ticagrelor, you will probably bruise and bleed more easily than usual or bleed for longer than usual and may be more likely to have nosebleeds. However, if you experience any of the following symptoms, call your doctor immediately: bleeding that is unexplained, severe, long-lasting, or uncontrollable; pink or brown urine; red or black, tarry stools; vomit that is bloody or that looks like coffee grounds; or coughing up blood or blood clots. If you are having surgery, including dental surgery, or any type of medical procedure, tell your doctor or dentist that you are taking ticagrelor. Your doctor will probably tell you to stop taking ticagrelor at least 5 days before your surgery is scheduled. Your doctor will probably tell you to take a low dose of aspirin (less than 100 mg) during your treatment, but taking higher doses of aspirin may prevent ticagrelor from working as it should. Many oquk-hef-afgctbr (OTC) medications contain aspirin, so be sure to read all labels carefully. Do not take additional aspirin or aspirin-containing products during your treatment with ticagrelor without talking to your doctor. Your doctor or pharmacist will give you the software business analyst's patient information sheet (Medication Guide) when you begin treatment with ticagrelor and each time you refill your prescription. Read the information carefully and ask your doctor or pharmacist if you have any questions. You can also visit the Food and Drug Administration (FDA) website (https://www.fda.gov/Drugs/DrugSafety/zab339798.htm) or the software business analyst's website to obtain the Medication Guide. Talk to your doctor about the risks of taking ticagrelor. WHY is this medicine prescribed? Ticagrelor is used to prevent a serious or life-threatening heart attack or stroke, or in people who have had a heart attack or who have acute coronary syndrome (ACS; blockage of blood flow to the heart). It is also used to prevent blood clots from forming in people who have received coronary stents (metal tubes surgically placed in clogged blood vessels to improve blood flow) to treat ACS. Ticagrelor is used to decrease the risk of a first-time heart attack or stroke in people at risk with coronary artery disease (CAD; reduced blood flow to the heart). It is also used to decrease the risk of another more serious stroke in people who are having a mild to moderate stroke or a transient ischemic attack (TIA; ministroke). Ticagrelor is in a class of medications called antiplatelet medications. It works by preventing platelets (a type of blood cell) from collecting and forming clots that may cause a heart attack or stroke. HOW should this medicine be used? Ticagrelor comes as a tablet to take by mouth. It is usually taken with or without food two times a day. Take ticagrelor at around the same times every day. Follow the directions on your prescription label carefully, and ask your doctor or pharmacist to explain any part you do not understand. Take ticagrelor exactly as directed. Do not take more or less of it or take it more often than prescribed by your doctor. If you are unable to swallow ticagrelor tablets, you may crush the tablet and mix it with water. Drink the mixture immediately, then refill the glass with water and stir and again drink the mixture immediately. If you have a nasogastric (NG) tube, your doctor or pharmacist will explain how to prepare ticagrelor to give through an NG tube. Ticagrelor will help prevent serious problems with your heart and blood vessels only as long as you take the medication. Continue to take ticagrelor even if you feel well. Do not stop taking ticagrelor without talking to your doctor. If you stop taking ticagrelor, there is a higher risk that you may have a heart attack or stroke. If you have a stent, there is also a higher risk that you could develop a blood clot in the stent if you stop taking ticagrelor too soon. Are there OTHER USES for this medicine? This medication may be prescribed for other uses; ask your doctor or pharmacist for more information. What SPECIAL PRECAUTIONS should I follow? Before taking ticagrelor, ? tell your doctor and pharmacist if you are allergic to ticagrelor, any other medications, or any of the ingredients in ticagrelor tablets. Ask your pharmacist or check the Medication Guide for a list of the ingredients. ? tell your doctor and pharmacist what other prescription and nonprescription medications, vitamins, nutritional supplements, and herbal products you are taking or plan to take while taking ticagrelor. Your doctor may need to change the doses of your medications or monitor you carefully for side effects. ? the following nonprescription product may interact with ticagrelor: aspirin. Be sure to let your doctor and pharmacist know that you are taking this medication before you start taking ticagrelor. Do not start this medication while taking ticagrelor without discussing with your healthcare provider. ? tell your doctor if you have or have ever had an irregular heartbeat that is not corrected by a pacemaker, a type of lung disease such as chronic obstructive pulmonary disease (COPD; a group of diseases that affect the lungs and airways) or asthma. ? tell your doctor if you are , plan to become , or are . If you become while taking ticagrelor, call your doctor. What SPECIAL DIETARY instructions should I follow? Unless your doctor tells you otherwise, continue your normal diet. What should I do IF I FORGET to take a dose? Skip the missed dose and continue your regular dosing schedule. Do not take a double dose to make up for a missed one. What SIDE EFFECTS can this medicine cause? Some side effects can be serious. If you experience any of these symptoms or those listed in the IMPORTANT WARNING section, call your doctor immediately: ? shortness of breath that occurs while you are at rest, after a small amount of exercise, or after any physical activity ? chest pain ? fast, slow, pounding, or irregular heartbeat ? rash ? swelling of the face, throat, tongue, lips, and eyes Ticagrelor may cause other side effects. Call your doctor if you have any unusual problems while taking this medication. If you experience a serious side effect, you or your doctor may send a report to the Food and Drug Administration's (FDA) MedWatch Adverse Event Reporting program online (https://www.fda.gov/Safety/MedWatch) or by phone ( ). What should I know about STORAGE and DISPOSAL of this medication? Keep this medication in the container it came in, tightly closed, and out of reach of children. Store it at room temperature and away from excess heat and moisture (not in the bathroom). It is important to keep all medication out of sight and reach of children as many containers (such as weekly pill minders and those for eye drops, creams, patches, and inhalers) are not child-resistant and young children can open them easily. To protect young children from poisoning, always lock safety caps and immediately place the medication in a safe location - one that is up and away and out of their sight and reach. https://www.upandaway.org Unneeded medications should be disposed of in special ways to ensure that pets, children, and other people cannot consume them. However, you should not flush this medication down the toilet. Instead, the best way to dispose of your medication is through a medicine take-back program. Talk to your pharmacist or contact your local garbage/recycling department to learn about take-back programs in your community. See the FDA's Safe Disposal of Medicines website (https://goo.gl/c4Rm4p) for more information if you do not have access to a take-back program. What should I do in case of OVERDOSE? In case of overdose, call the poison control helpline at . Information is also available online at https://www.poisonhelp.org/help. If the victim has collapsed, had a seizure, has trouble breathing, or can't be awakened, immediately call emergency services at 911. Symptoms of overdose may include the following: ? bleeding ? nausea ? vomiting ? diarrhea ? irregular heartbeat What OTHER INFORMATION should I know? Keep all appointments with your doctor and the laboratory. Your doctor may order certain lab tests to check your body's response to ticagrelor. Before having any laboratory test, tell your doctor and the laboratory personnel that you are taking ticagrelor. Do not let anyone else take your medication. Ask your pharmacist any questions you have about refilling your prescription. It is important for you to keep a written list of all of the prescription and nonprescription (souu-vap-nbwizzw) medicines you are taking, as well as any products such as vitamins, minerals, or other dietary supplements. You should bring this list with you each time you visit a doctor or if you are admitted to a hospital. It is also important information to carry with you in case of emergencies. This report on medications is for your information only, and is not considered individual patient advice. Because of the changing nature of drug information, please consult your physician or pharmacist about specific clinical use. The [employer] represents that the information provided hereunder was formulated with a reasonable standard of care, and in conformity with professional standards in the field. The [employer] makes no representations or warranties, express or implied, including, but not limited to, any implied warranty of merchantability and/or fitness for a particular purpose, with respect to such information and specifically disclaims all such warranties. Users are advised that decisions regarding drug therapy are complex medical decisions requiring the independent, informed decision of an appropriate health behavioral health care coordinator, and the information is provided for informational purposes only. The entire monograph for a drug should be reviewed for a thorough understanding of the drug's actions, uses and side effects. The [employer] does not endorse or recommend the use of any drug. The information is not a substitute for medical care. AHFS? Patient Medication Information?. ? Copyright, 2023. The [employer]?, [address], [address], [place], [place]. All Rights Reserved. Duplication for commercial use must be authorized by [facility]. Selected Revisions: April 13, 2020. AHFS? Patient Medication Information?. ? Copyright, 2024 [facility]2025-04-14 14:51:12 Images from the original note were not included. [id number] Diabetes: Meal Planning You can help keep your blood sugar level in your target range by eating healthy foods. Your care team can help you create a nutritious meal plan. Take an active role in your diabetes management. Follow your meal plan and work with your care team. Make your meal plan A meal plan gives guidelines for the types and amounts of food you should eat. The goal is to balance food and insulin (or other diabetes medicines). That way, your blood sugars will be in your target range. Your dietitian will help you make a flexible meal plan that includes many foods that you like. Let your dietitian know if you are struggling to eat correctly due to a limited budget or for other reasons. Watch serving sizes Your meal plan will group foods by servings. To learn how much a serving is, start by measuring food portions at each meal. Soon you?ll know what a serving looks like on your plate. Ask your care team about how to balance servings of different foods. Eat from all the food groups The basis of a healthy meal plan is eating lots of different foods. Choose whole fruits, nonstarchy vegetables, legumes, nuts and seeds, whole grains, and low-fat or nonfat dairy products. Limit meat, sugar-sweetened beverages, sweets, refined grains, and ultra-processed foods. Eating a wide variety of foods gives your body the nutrients it needs. It can also keep you from getting bored with your meal plan. Learn about carbohydrates, fats, and protein ? Carbohydrates (carbs). These are starches, sugars, and fiber. They're found in many foods. These include fruit, bread, pasta, milk, and sweets. Of all the foods you eat, carbs have the most effect on your blood sugar. Your dietitian may teach you about carb counting. This is a way to figure out the number of carbohydrates in a meal. Healthier carbs are absorbed more slowly. They don't raise your blood sugar as much. ? Fats. These have the most calories. They also have the most effect on your weight and your risk of heart disease. When you have diabetes, it?s important to control your weight and protect your heart. Foods that are high in fat include whole milk, cheese, snack foods, and desserts. You can eat more of the heart-healthy fats, such as avocados, salmon, tuna, nuts and seeds, and olive oil. ? Protein. This is important for building and repairing muscles and bones. Choose low-fat protein sources, such as fish, egg whites, and skinless chicken. You may be instructed to weigh or measure your protein sources. Reduce liquid sugars Extra calories from sodas, sports drinks, and fruit drinks make it hard to keep blood sugar in range. Cut as many liquid sugars from your meal plan as you can. This includes most fruit juices. They are often high in natural or added sugar. Instead, have plenty of water and other sugar-free drinks. Eat less fat If you need to lose weight, try to reduce the amount of fat in your diet. This can also help lower your cholesterol level to keep blood vessels healthier. Cut fat by using only small amounts of liquid oil for cooking. Read food labels carefully. Stay away from foods with unhealthy trans fats. Time your meals right When it comes to blood sugar control, when you eat is as important as what you eat. You may need to eat several small meals spaced evenly throughout the day to stay in your target range. So don?t skip breakfast or wait until late in the day to get most of your calories. Doing so can cause your blood sugar to rise too high or fall too low. Last Reviewed Date: 2023 00:00:00 ? 5453-6431 [employer]. All rights reserved. This information is not intended as a substitute for professional medical care. Always follow your healthcare professional's instructions. [facility]2025-04-14 14:51:12 Images from the original note were not included. [id number] Aspirin Brand Name(s): Acuprin?, Anacin? Aspirin Regimen, Ascriptin?, Aspergum?, Aspidrox?, Aspir-Mox?, Aspirtab?, Aspir-melanie?, Rickie? Aspirin, Bufferin?, Buffex?, Easprin?, Ecotrin?, Empirin?, Entaprin?, Entercote?, Fasprin?, Genacote?, Gennin-FC?, Genprin?, Halfprin?, Magnaprin?, Miniprin?, Minitabs?, Ridiprin?, Sloprin?, Uni-Buff?, Uni-Tren?, Valomag?, Zorprin?, Heidi-[place]? (as a combination product containing Aspirin, Citric Acid, Sodium Bicarbonate), Heidi-[place]? Extra Strength (as a combination product containing Aspirin, Citric Acid, Sodium Bicarbonate), Heidi-[place]? Morning Relief (as a combination product containing Aspirin, Caffeine), Heidi-[place]? Plus Flu (as a combination product containing Aspirin, Chlorpheniramine, Dextromethorphan), Heidi-[place]? PM (as a combination product containing Aspirin, Diphenhydramine), Alor? (as a combination product containing Aspirin, Hydrocodone), Anacin? (as a combination product containing Aspirin, Caffeine), Anacin? Advanced Headache Formula (as a combination product containing Acetaminophen, Aspirin, Caffeine), Aspircaf? (as a combination product containing Aspirin, Caffeine), Axotal? (as a combination product containing Aspirin, Butalbital), Azdone? (as a combination product containing Aspirin, Hydrocodone), Rickie? Aspirin Plus Calcium (as a combination product containing Aspirin, Calcium Carbonate), Rickie? Aspirin PM (as a combination product containing Aspirin, Diphenhydramine), Rickie? Back and Body Pain (as a combination product containing Aspirin, Caffeine), BC Headache (as a combination product containing Aspirin, Caffeine, Salicylamide), BC Powder (as a combination product containing Aspirin, Caffeine, Salicylamide), Damason-P? (as a combination product containing Aspirin, Hydrocodone), Emagrin? (as a combination product containing Aspirin, Caffeine, Salicylamide), Endodan? (as a combination product containing Aspirin, Oxycodone), Equagesic? (as a combination product containing Aspirin, Meprobamate), Excedrin? (as a combination product containing Acetaminophen, Aspirin, Caffeine), Excedrin? Back & Body (as a combination product containing Acetaminophen, Aspirin), Goody's? Body Pain (as a combination product containing Acetaminophen, Aspirin), Levacet? (as a combination product containing Acetaminophen, Aspirin, Caffeine, Salicylamide), Lortab? ASA (as a combination product containing Aspirin, Hydrocodone), Micrainin? (as a combination product containing Aspirin, Meprobamate), Momentum? (as a combination product containing Aspirin, Phenyltoloxamine), Norgesic? (as a combination product containing Aspirin, Caffeine, Orphenadrine), Orphengesic? (as a combination product containing Aspirin, Caffeine, Orphenadrine), Panasal? (as a combination product containing Aspirin, Hydrocodone), Percodan? (as a combination product containing Aspirin, Oxycodone), Robaxisal? (as a combination product containing Aspirin, Methocarbamol), Roxiprin? (as a combination product containing Aspirin, Oxycodone), Saleto? (as a combination product containing Acetaminophen, Aspirin, Caffeine, Salicylamide), Soma? Compound (as a combination product containing Aspirin, Carisoprodol), Soma? Compound with Codeine (as a combination product containing Aspirin, Carisoprodol, Codeine), Supac? (as a combination product containing Acetaminophen, Aspirin, Caffeine), Synalgos-DC? (as a combination product containing Aspirin, Caffeine, Dihydrocodeine), Talwin? Compound (as a combination product containing Aspirin, Pentazocine), Vanquish? (as a combination product containing Acetaminophen, Aspirin, Caffeine); also available generically Acetylsalicylic acid, ASA WHY is this medicine prescribed? Prescription aspirin is used to relieve the symptoms of rheumatoid arthritis (arthritis caused by swelling of the lining of the joints), osteoarthritis (arthritis caused by breakdown of the lining of the joints), systemic lupus erythematosus (condition in which the immune system attacks the joints and organs and causes pain and swelling) and certain other rheumatologic conditions (conditions in which the immune system attacks parts of the body). Nonprescription aspirin is used to reduce fever and to relieve mild to moderate pain from headaches, menstrual periods, arthritis, toothaches, and muscle aches. Nonprescription aspirin is also used to prevent heart attacks in people who have had a heart attack in the past or who have angina (chest pain that occurs when the heart does not get enough oxygen). Nonprescription aspirin is also used to reduce the risk of in people who are experiencing or who have recently experienced a heart attack. Nonprescription aspirin is also used to prevent ischemic strokes (strokes that occur when a blood clot blocks the flow of blood to the brain) or mini-strokes (strokes that occur when the flow of blood to the brain is blocked for a short time) in people who have had this type of stroke or mini-stroke in the past. Aspirin will not prevent hemorrhagic strokes (strokes caused by bleeding in the brain). Aspirin is in a group of medications called salicylates. It works by stopping the production of certain natural substances that cause fever, pain, swelling, and blood clots. Aspirin is also available in combination with other medications such as antacids, pain relievers, and cough and cold medications. This monograph only includes information about the use of aspirin alone. If you are taking a combination product, read the information on the package or prescription label or ask your doctor or pharmacist for more information. HOW should this medicine be used? Prescription aspirin comes as an extended-release (long-acting) tablet. Nonprescription aspirin comes as a regular tablet, a delayed-release (releases the medication in the intestine to prevent damage to the stomach) tablet, a chewable tablet, powder, and a gum to take by mouth. Prescription aspirin is usually taken two or more times a day. Nonprescription aspirin is usually taken once a day to lower the risk of a heart attack or stroke. Nonprescription aspirin is usually taken every 4 to 6 hours as needed to treat fever or pain. Follow the directions on the package or prescription label carefully, and ask your doctor or pharmacist to explain any part you do not understand. Take aspirin exactly as directed. Do not take more or less of it or take it more often than directed by the package label or prescribed by your doctor. Swallow the extended-release tablets whole with a full glass of water. Do not break, crush, or chew them. Swallow the delayed-release tablets with a full glass of water. Chewable aspirin tablets may be chewed, crushed, or swallowed whole. Drink a full glass of water, immediately after taking these tablets. Ask a doctor before you give aspirin to your child or teenager. Aspirin may cause Harvey's syndrome (a serious condition in which fat builds up on the brain, liver, and other body organs) in children and teenagers, especially if they have a virus such as chicken pox or the flu. If you have had oral surgery or surgery to remove your tonsils in the last 7 days, talk to your doctor about which types of aspirin are safe for you. Delayed-release tablets begin to work some time after they are taken. Do not take delayed-release tablets for fever or pain that must be relieved quickly. Stop taking aspirin and call your doctor if your fever lasts longer than 3 days, if your pain lasts longer than 10 days, or if the part of your body that was painful becomes red or swollen. You may have a condition that must be treated by a doctor. Are there OTHER USES for this medicine? Aspirin is also sometimes used to treat rheumatic fever (a serious condition that may develop after a strep throat infection and may cause swelling of the heart valves) and Kawasaki disease (an illness that may cause heart problems in children). Aspirin is also sometimes used to lower the risk of blood clots in patients who have artificial heart valves or certain other heart conditions and to prevent certain complications of . What SPECIAL PRECAUTIONS should I follow? Before taking aspirin, ? tell your doctor and pharmacist if you are allergic to aspirin, other medications for pain or fever, tartrazine dye, or any other medications. ? tell your doctor and pharmacist what prescription and nonprescription medications, vitamins, nutritional supplements, and herbal products you are taking or plan to take. Be sure to mention any of the following: acetazolamide (Diamox); angiotensin-converting enzyme (RINA) inhibitors such as benazepril (Lotensin), captopril (Capoten), enalapril (Vasotec), fosinopril (Monopril), lisinopril (Prinivil, Zestril), moexipril (Univasc), perindopril, (Aceon), quinapril (Accupril), ramipril (Altace), and trandolapril (Mavik); anticoagulants ('blood thinners') such as warfarin (Coumadin) and heparin; beta blockers such as atenolol (Tenormin), labetalol (Normodyne), metoprolol (Lopressor, Toprol XL), nadolol (Corgard), and propranolol (Inderal); diuretics ('water pills'); medications for diabetes or arthritis; medications for gout such as probenecid and sulfinpyrazone (Anturane); methotrexate (Trexall); other nonsteroidal anti-inflammatory drugs (NSAIDs) such as naproxen (Aleve, Naprosyn); phenytoin (Dilantin); and valproic acid (Depakene, Depakote). Your doctor may need to change the doses of your medications or monitor you more carefully for side effects. ? if you are taking aspirin on a regular basis to prevent heart attack or stroke, do not take ibuprofen (Advil, Motrin) to treat pain or fever without talking to your doctor. Your doctor will probably tell you to allow some time to pass between taking your daily dose of aspirin and taking a dose of ibuprofen. ? tell your doctor if you have or have ever had asthma, frequent stuffed or runny nose, or nasal polyps (growths on the linings of the nose). If you have these conditions, there is a risk that you will have an allergic reaction to aspirin. Your doctor may tell you that you should not take aspirin. ? tell your doctor if you often have heartburn, upset stomach, or stomach pain and if you have or have ever had ulcers, anemia, bleeding problems such as hemophilia, or kidney or liver disease. ? tell your doctor if you are , you plan to become , or if you are breast-feeding. Low dose aspirin 81-mg may be taken during , but aspirin doses greater that 81 mg may harm the fetus and cause problems with delivery if it is taken around 20 weeks or later during . Do not take aspirin doses greater that 81 mg (e.g., 325 mg) around or after 20 weeks of , unless told to do so by your doctor. If you become while taking aspirin or aspirin containing medications, call your doctor. ? if you are having surgery, including dental surgery, tell the doctor or dentist that you are taking aspirin. ? if you drink three or more alcoholic drinks every day, ask your doctor if you should take aspirin or other medications for pain and fever. What SPECIAL DIETARY instructions should I follow? Unless your doctor tells you otherwise, continue your normal diet. What should I do IF I FORGET to take a dose? If your doctor has told you to take aspirin on a regular basis and you miss a dose, take the missed dose as soon as you remember it. However, if it is almost time for the next dose, skip the missed dose and continue your regular dosing schedule. Do not take a double dose to make up for a missed one. What SIDE EFFECTS can this medicine cause? Some side effects can be serious. If you experience any of the following symptoms, call your doctor immediately: ? hives ? rash ? swelling of the eyes, face, lips, tongue, or throat ? wheezing or difficulty breathing ? hoarseness ? fast heartbeat ? fast breathing ? cold, clammy skin ? ringing in the ears ? loss of hearing ? bloody vomit ? vomit that looks like coffee grounds ? bright red blood in stools ? black or tarry stools Aspirin may cause other side effects. Call your doctor if you experience any unusual problems while you are taking this medication. If you experience a serious side effect, you or your doctor may send a report to the Food and Drug Administration's (FDA) MedWatch Adverse Event Reporting program online (https://www.fda.gov/Safety/MedWatch) or by phone ( ). What should I know about STORAGE and DISPOSAL of this medication? Keep this medication in the container it came in, tightly closed, and out of reach of children. Store it at room temperature and away from excess heat and moisture (not in the bathroom). Dispose of any tablets that have a strong vinegar smell. It is important to keep all medication out of sight and reach of children as many containers (such as weekly pill minders and those for eye drops, creams, patches, and inhalers) are not child-resistant and young children can open them easily. To protect young children from poisoning, always lock safety caps and immediately place the medication in a safe location - one that is up and away and out of their sight and reach. https://www.[employer].org Unneeded medications should be disposed of in special ways to ensure that pets, children, and other people cannot consume them. However, you should not flush this medication down the toilet. Instead, the best way to dispose of your medication is through a medicine take-back program. Talk to your pharmacist or contact your local garbage/recycling department to learn about take-back programs in your community. See the FDA's Safe Disposal of Medicines website (https://goo.gl/c4Rm4p) for more information if you do not have access to a take-back program. What should I do in case of OVERDOSE? In case of overdose, call the poison control helpline at . Information is also available online at https://www.poisonhelp.org/help. If the victim has collapsed, had a seizure, has trouble breathing, or can't be awakened, immediately call emergency services at 911. Symptoms of overdose may include: ? burning pain in the throat or stomach ? vomiting ? decreased urination ? fever ? restlessness ? irritability ? talking a lot and saying things that do not make sense ? fear or nervousness ? dizziness ? double vision ? uncontrollable shaking of a part of the body ? confusion ? abnormally excited mood ? hallucination (seeing things or hearing voices that are not there) ? seizures ? drowsiness ? loss of consciousness for a period of time What OTHER INFORMATION should I know? Keep all appointments with your doctor. If you are taking prescription aspirin, do not let anyone else take your medication. Ask your pharmacist any questions you have about refilling your prescription. It is important for you to keep a written list of all of the prescription and nonprescription (zxfh-cup-aelxcxw) medicines you are taking, as well as any products such as vitamins, minerals, or other dietary supplements. You should bring this list with you each time you visit a doctor or if you are admitted to a hospital. It is also important information to carry with you in case of emergencies. This report on medications is for your information only, and is not considered individual patient advice. Because of the changing nature of drug information, please consult your physician or pharmacist about specific clinical use. The [place] [employer] represents that the information provided hereunder was formulated with a reasonable standard of care, and in conformity with professional standards in the field. The [employer] makes no representations or warranties, express or implied, including, but not limited to, any implied warranty of merchantability and/or fitness for a particular purpose, with respect to such information and specifically disclaims all such warranties. Users are advised that decisions regarding drug therapy are complex medical decisions requiring the independent, informed decision of an appropriate health behavioral health care coordinator, and the information is provided for informational purposes only. The entire monograph for a drug should be reviewed for a thorough understanding of the drug's actions, uses and side effects. The [employer] does not endorse or recommend the use of any drug. The information is not a substitute for medical care. AHFS? Patient Medication Information?. ? Copyright, 2023. The [employer]?, [address], [address], [place], [place]. All Rights Reserved. Duplication for commercial use must be authorized by [facility]. Selected Revisions: August 11, 2020. AHFS? Patient Medication Information?. ? Copyright, 2024 Michelle [id number] 14:51:11 Images from the original note were not included. [id number] Learning About the Risk of Heart Attack and Stroke With Diabetes How are diabetes, heart attack, and stroke connected? For some people, diabetes can cause problems that increase the risk of a heart attack or stroke. Many things can lead to a heart attack or stroke. These include high blood sugar, insulin resistance, high cholesterol, and high blood pressure. Lifestyle and genetics may also play a part. But here's the good news: The things you're doing to stay healthy with diabetes also help your heart and blood vessels. That means eating healthy foods, quitting smoking, getting exercise, and staying at a healthy weight. What increases your risk for heart attack and stroke? When you have diabetes, your risk for heart attack and stroke is even higher if you have: ? High blood pressure. It pushes blood through the arteries with too much force. Over time, this damages the encarnacion of the arteries. ? High cholesterol. It causes the buildup of a kind of fat inside the blood vessel encarnacion. This buildup can lower blood flow to the heart muscle and raise your risk for having a heart attack or stroke. ? Kidney damage. It shares many of the risk factors for heart attack and stroke (such as high blood sugar, high blood pressure, and high cholesterol). How do you keep your heart healthy when you have diabetes? Managing your diabetes and keeping your heart and blood vessels healthy are both important. Here are some things you can do. ? Test your blood sugar levels and get your diabetes tests on schedule. ? Try to keep your numbers within your target range. ? Keep track of your blood pressure. ? Your doctor will give you a goal that's right for you. If your blood pressure is high, your treatment may also include medicine. Changes in your lifestyle, such as staying at a healthy weight, may also help you lower your blood pressure. ? Eat heart-healthy foods. ? These include vegetables, fruit, nuts, beans, lean meat, fish, and whole grains. Limit sodium, alcohol, and sugar. ? Work with your doctor or extension educator to learn which exercises are safe for you. ? Walking is a good choice. Bit by bit, increase the amount you walk every day. Try for at least 30 minutes on most days of the week. ? Don't smoke. ? Smoking can make diabetes worse and increase your risk of heart attack or stroke. If you need help quitting, talk to your doctor about stop-smoking programs and medicines. These can increase your chances of quitting for good. ? Take medicines as directed by your doctor. ? For example, your doctor may suggest taking a statin or daily aspirin. Some diabetes medicine can also lower your risk for heart attack and stroke. Current as of: December 29, 2022 Content Version: 14.0 Care instructions adapted under license by your healthcare professional. If you have questions about a medical condition or this instruction, always ask your healthcare professional. [employer] disclaims any warranty or liability for your use of this information. ? [id number] [employer]. ELAND [facility] [id number] 14:51:11 Images from the original note were not included. 24829 Treating Low Blood Sugar (Hypoglycemia) [id number]: Last Reviewed Date: 2024 00:00:00 ? [id number] [employer]. All rights reserved. This information is not intended as a substitute for professional medical care. Always follow your healthcare professional's instructions. ELAND Gracia2025-04-14 14:51:11 Images from the original note were not included. 68188 Diabetes: Learning About Serving and Portion Sizes Servings and portions. What?s the difference? These terms can be very confusing. But learning to measure serving sizes can help you figure out how many carbohydrates (carbs) and other foods you eat each day. They're also powerful tools for managing your weight. A good rule of thumb: Devote half your plate to vegetables and green salad. Split the other half between protein and starchy carbohydrates. Fruit makes a good dessert. Servings and portions Many different words are used to describe amounts of food. If your healthcare provider uses a term you?re not sure of, don?t be afraid to ask. It helps to know the difference between servings and portions: ? A serving size. This is a fixed size. Food producers use this term to describe their products. For instance, the label on a cereal box could say that 1 cup of dry cereal = 1 serving. ? A portion (also called a helping). This is how much you eat or how much you put on your plate at a meal. For instance, you might eat 2 cups of cereal at breakfast. Watching serving sizes The portion you choose to eat (such as 2 cups of cereal) may be more than 1 serving as listed on the food label (such as 1 cup of cereal). That?s why it helps to measure or weigh the food you eat. Because the food label values are based on servings, you?ll need to know how many servings you eat at 1 sitting. When you?re planning for a snack or a meal, keep servings in mind. It's OK if you don?t have measuring cups or a scale handy. There are other ways to figure out serving sizes. For instance, you can compare the food to the size of your hand (see pictures below). Here are some general tips: ? About 3 ounces of meat fits in the palm of your hand ? 1 cup of food is about the size of your fist ? An open hand holds about 1 to 2 ounces of nuts Ounces: 2 to 3 ounces is about the size of your palm. 1 cup: 1 cup (or a medium-sized piece) is about the size of your fist. 1/2 cup: 1/2 cup is about the size of your cupped hand. Managing portion sizes If your weight is a concern, reducing your portions can help. A portion is the amount of each type of food on your plate. You can eat more than 1 serving of a food at once. But to keep from eating too much at 1 meal, learn how to manage your portions. Portion control will also help with blood sugar management. Last Reviewed Date: 2023 00:00:00 ? [id number] [employer]. All rights reserved. This information is not intended as a substitute for professional medical care. Always follow your healthcare professional's instructions. Michelle [id number] 14:51:10 Images from the original note were not included. 35024 Recognizing a Heart Attack or Angina If you have risk factors for heart problems, you should always watch for signs of angina or a heart attack. If you have a sudden heart problem, getting treatment right away could save your life. Risk factors for a heart attack include: ? Being older ? High cholesterol ? High blood pressure ? Having an immediate family member such as a brother, sister, or parent who had a heart attack before age 50 ? Diabetes ? Smoking ? Being overweight ? Smoking or using stimulants such as cocaine or amphetamine ? High stress There are other risk factors, including eating a high-fat diet and not getting much exercise. Understanding angina and heart attack ? Angina is an uncomfortable burning feeling, tightness, or pressure in the chest, back, neck, throat, or jaw. It can be painful. It means not enough blood is getting to the heart muscle. This is usually from a blocked artery in the heart. Angina is a sign that you may be having, or are about to have, a heart attack. You need to call 911 right away. ? A heart attack is also known as acute myocardial infarction (AMI). It's what happens when blood and oxygen can't get to part of the heart muscle. That part of the heart muscle is damaged and starts to . If enough of the heart is affected, it won't be able to beat correctly. This will severely limit its ability to send blood to the brain and the rest of the body. It may cause . It's vital to get help as soon as possible for a heart attack. Stable angina versus unstable angina Stable angina is also known as chronic angina. It has a typical pattern. It happens when you exert yourself physically or feel a strong emotion. Nitroglycerin, rest, or both will easily ease stable angina symptoms. Stable angina symptoms will most likely feel the same each time you have them. It's important to discuss these symptoms with your healthcare provider. They can be a warning sign of a future heart attack. Unstable angina causes unexpected or unpredictable symptoms, often when you're at rest. Unstable angina is a medical emergency. Angina is also considered unstable if resting and nitroglycerin don't ease symptoms. It's also unstable if symptoms are getting worse, happening more often, or lasting longer. These symptoms may mean you have a severe blockage or a spasm of a heart artery. Unstable angina is commonly a sign of an active heart attack. Remember the following tips: ? Stable angina symptoms should go away with rest or medicine. If they don?t go away, call 911! ? Stable angina symptoms last for only a few minutes. If they last longer than that, or if they go away and come back, you may be having a heart attack. Call 911! ? If you have shortness of breath, cold sweat, upset stomach (nausea), or lightheadedness, call 911! For angina that shows up for the first time, there is only 1 response: ?Call 911! You should never diagnose angina by yourself. If these symptoms are new, or worse than normal, call 911! Warning signs of a heart attack If you have symptoms that you can?t explain, call 911 right away. [address]'t drive yourself to the emergency room (ER). These are warning signs of a possible heart attack: ? Chest discomfort. Most heart attacks involve discomfort in the center of the chest that lasts more than a few minutes, or that goes away and comes back. It can feel like uncomfortable pressure, squeezing, fullness, or pain. ? Discomfort in other parts of the upper body. Symptoms can include pain or discomfort in 1 or both arms, the back, neck, jaw, or stomach. ? Shortness of breath, with or without chest discomfort ? Other signs may include breaking out in a cold sweat, nausea, or lightheadedness. If you think someone is having a heart attack, call 911 instead of driving the person to the ER. After you call 911, you'll be told what to do. The dispatcher ship pilot may tell you to give the person aspirin while waiting for help to arrive. If the dispatcher doesn?t tell you to do this, don?t give the person aspirin. Aspirin can be dangerous in certain cases. ? Note for women. Like men, women often have chest pain or discomfort as a heart attack symptom. But women are somewhat more likely than men to have less common symptoms. These include shortness of breath, abnormal tiredness, lightheadedness, heartburn, nausea and vomiting, back pain, or jaw pain. ? Note for older adults. Older people may also not have typical symptoms of a heart attack. They may have symptoms that include fainting, weakness, or confusion. Ignoring these symptoms can lead to critical illness or . You should get your symptoms checked out right away. ? If you've had a heart attack. People who have had 1 heart attack are at risk of having another. Your provider may prescribe medicine such as nitroglycerin to take when chest pain starts. Or you may need medicines to lower your heart rate and blood pressure. This is to prevent angina and another heart attack. Remember to take any medicines your provider has given. Don't stop taking them without speaking with your provider first. If you have diabetes: Silent heart problems Over time, high blood sugar can damage nerves in your body. This may keep you from feeling pain caused by a heart problem, leading to a ?silent? heart problem. If you don?t feel symptoms, you're less able to know that you may be having a heart attack and get treatment right away. Talk with your healthcare provider about how to control your blood sugar levels and lower your risk for silent heart problems. Last Reviewed Date: 2023 00:00:00 ? [id number] [employer]. All rights reserved. This information is not intended as a substitute for professional medical care. Always follow your healthcare professional's instructions. [facility]2025-04-14 14:51:09 Images from the original note were not included. 50685 Discharge Instructions for Heart Attack You have had a heart attack (acute myocardial infarction). A heart attack occurs when a vessel that sends blood to your heart suddenly becomes blocked. A lack of blood flow can damage or destroy part of the heart muscle. This causes your heart not to work as well as it should. Follow these guidelines for home care and lifestyle changes. At home ? Check that you have a list of all the medicines you take. Take your medicines exactly as directed. Make sure you have a pharmacy so you can get the prescription filled. Don?t skip doses. Talk with your health care provider if your medicines aren't working for you. Together you can come up with another treatment plan. ? Remember that recovery after a heart attack takes time. Plan to take it easy for at least 4 to 6 weeks while you recover. Then return to normal activity when your provider says it?s OK. ? Ask your provider about joining a heart rehab program. This can help make your heart and lungs stronger and give you more energy and confidence. ? Tell your provider if you are feeling depressed. Feelings of sadness are common after a heart attack. But it's important to speak to someone or seek counseling if you are feeling overwhelmed by these feelings. These feelings most often pass within a month. ? Call 911 right away if you have chest pain or pain that goes to your shoulder, neck, or back. Don't drive yourself to the hospital. ? Ask your family members to learn CPR. This is an important skill that can save lives when it's needed. ? Learn to take your own blood pressure and pulse. Keep a record of your results. Ask your provider when you should seek emergency medical attention. They will tell you which blood pressure reading is dangerous. Lifestyle changes Your heart attack was likely caused by heart disease. Your health care provider will work with you to make changes to your lifestyle. This will help the heart disease from getting worse. These changes will most likely be a combination of diet and exercise. Diet Your health care provider will tell you what changes you need to make to your diet. You may need to see a registered dietitian for help with these diet changes. These changes may include: ? Cutting back on how much fat and cholesterol you eat. ? Cutting back on how much salt (sodium) you eat, especially if you have high blood pressure. ? Eating more fresh vegetables and fruits. ? Eating lean proteins, such as fish, poultry, beans, and peas, and eating less red meat and processed meats. ? Using low-fat dairy products. ? Using vegetable and nut oils in limited amounts. ? Limiting how many sweets and processed foods, such as chips, cookies, and baked goods, you eat. ? Limiting how often you eat out. And when you do eat out, making better food choices. ? Not eating fried or greasy foods, or foods high in saturated fat. Exercise Your health care provider may tell you to get more exercise if you haven't been physically active. Depending on your case, your provider may recommend an exercise program that is best for you. Warm up 5 to 10 minutes before exercising and cool down 5 to 10 minutes after exercising. The cardiac rehab program Ask your health care provider about a cardiac rehab program. Cardiac rehabilitation is a medically supervised program to help people who have heart disease. It's designed to improve heart recovery and your ability to function. It also helps prepare you for activities of daily living. People in this program may have recently had a heart attack or heart surgery. It may ease your symptoms and improve your sense of well-being. Your cardiac rehab program is designed to meet your needs. It's overseen by a cardiac doctor and a team of cardiac health providers. Your program may last from 6 weeks to up to a year. The goal of cardiac rehab is to help ease your symptoms and make your heart as healthy as possible. Your program may include: ? Exercise program. This makes you more fit, and helps your heart work better. ? Classes to help you change your lifestyle and habits. For example, classes and support to help you quit smoking. Or you may take a nutrition class to learn how to eat better. ? Stress management. You will learn how to manage stress to lower your anxiety. ? Counseling. This will help you learn about your specific condition and how to live with it. ? Occupational therapy. This is to help you get ready to go back to work or to manage normal activities of daily living. Other changes Your health care provider may also recommend that you: ? Lose weight. If you are overweight or obese, your provider will work with you to lose extra pounds. Making diet changes and getting more exercise can help. A good goal is to lose your 10% of your body weight in one year. ? Stop smoking. Sign up for a stop-smoking program to make it more likely for you to quit for good. You can join a stop-smoking support group. Or ask your provider about nicotine replacement products or medicines to help you quit. ? Learn to manage stress. Stress management methods help you deal with stress in your home and work life. This will help you feel better emotionally and ease the strain on your heart. ? Control other conditions. If you have diabetes, high blood pressure, kidney disease, or high cholesterol, your provider will work with you to control these diseases. All of these are risk factors for heart attacks. Follow-up Check that you have the details about all of your medical appointments once you leave the hospital. Or make a follow-up appointment as directed. Call 911 Call 911 right away if you have: ? Chest pain or pain that goes to your neck, jaw, back, or shoulder. ? New shortness of breath. When to call your doctor Contact your health care provider right away if you have: ? Lightheadedness, dizziness, or fainting. ? The feeling of an irregular heartbeat or fast pulse. Last Reviewed Date: 2024 00:00:00 ? [id number] [employer]. All rights reserved. This information is not intended as a substitute for professional medical care. Always follow your healthcare professional's instructions. [id number] CLINICAL PHARMACY ENDOCRINOLOGY VISIT DATE: 07/11/2024 Subjective: Evelia Casas is a 59 year [...] <100: no insulin 100-200: 5u >200: 11u Contacted patient and she stated she is currently in the hospital. Will follow up with patient next week. Kassie Veras PharmD Pharmacy Clinical C Java Developer - Family Medicine Angelica Veras [facility]2025-04-14 11:56:26 Problem: Pain - Adult Goal: Verbalizes/displays adequate comfort level or baseline comfort level Outcome: Progressing Problem: Safety - Adult Goal: Free from fall injury Outcome: Progressing Problem: Discharge Planning Goal: Discharge to home or other facility with appropriate resources Outcome: Progressing Problem: Chronic Conditions and Co-morbidities Goal: Patient's chronic conditions and co-morbidity symptoms are monitored and maintained or improved Outcome: Progressing [facility]2025-04-13 09:49:23 The patient is Moderately Stable - Low risk of patient condition declining or worsening The patient's goals for the shift include BG monitoring The clinical goals for the shift include Remain HDS Plan discussed with patient and patient verbalized understanding. [facility]2025-04-12 20:28:47 The patient is Moderately Unstable - Medium risk of patient condition declining or worsening The patient's goals for the shift include BG monitoring The clinical goals for the shift include Remain HDS Problem: Pain - Adult Goal: Verbalizes/displays adequate comfort level or baseline comfort level Outcome: Progressing Problem: Safety - Adult Goal: Free from fall injury Outcome: Progressing Problem: Discharge Planning Goal: Discharge to home or other facility with appropriate resources Outcome: Progressing Flowsheets (Taken 07/09/20241999) Discharge to home or other facility with appropriate resources: Arrange for needed discharge resources and transportation as appropriate Identify discharge learning needs (meds, wound care, etc) Problem: Chronic Conditions and Co-morbidities Goal: Patient's chronic conditions and co-morbidity symptoms are monitored and maintained or improved Outcome: Progressing [facility]2025-04-12 08:01:55 Problem: Pain - Adult Goal: Verbalizes/displays adequate comfort level or baseline comfort level Outcome: Progressing Problem: Safety - Adult Goal: Free from fall injury Outcome: Progressing Problem: Discharge Planning Goal: Discharge to home or other facility with appropriate resources Outcome: Progressing Problem: Chronic Conditions and Co-morbidities Goal: Patient's chronic conditions and co-morbidity symptoms are monitored and maintained or improved Outcome: Progressing The patient is Moderately Unstable - Medium risk of patient condition declining or worsening The patient's goals for the shift include rest and monitor blood sugar The clinical goals for the shift include HD stability Over the shift, the patient did not make progress toward the following goals. Barriers to progression include patient's acuity of illness. Recommendations to address these barriers include continue with medical management. [facility]2025-04-12 00:36:55 The patient is Moderately Unstable - Medium risk of patient condition declining or worsening The patient's goals for the shift include rest and monitor blood sugar The clinical goals for the shift include HD stability Problem: Pain - Adult Goal: Verbalizes/displays adequate comfort level or baseline comfort level Outcome: Progressing Problem: Safety - Adult Goal: Free from fall injury Outcome: Progressing Problem: Discharge Planning Goal: Discharge to home or other facility with appropriate resources Outcome: Progressing Problem: Chronic Conditions and Co-morbidities Goal: Patient's chronic conditions and co-morbidity symptoms are monitored and maintained or improved Outcome: [facility]ing [facility]00 Random blood sugar check done= 177 mg/dl ( Result did not show in the system). T Zoraida Barger RNUnited Regional Healthcare [id number] 07:15:44 The patient is Moderately Stable - Low risk of patient condition declining or worsening The patient's goals for the shift include rest The clinical goals for the shift include HDS, pt comfort, [facility]:06 The patient's goals for the shift include rest, comfort, safety The clinical goals for the shift include HD stability Problem: Pain - Adult Goal: Verbalizes/displays adequate comfort level or baseline comfort level Outcome: Progressing Problem: Safety - Adult Goal: Free from fall injury Outcome: Progressing Problem: Discharge Planning Goal: Discharge to home or other facility with appropriate resources Outcome: Progressing Problem: Chronic Conditions and Co-morbidities Goal: Patient's chronic conditions and co-morbidity symptoms are monitored and maintained or improved Outcome: Progressing [facility]2025-04-10 10:36:45 The patient is Moderately Stable - Low risk of patient condition declining or worsening The patient's goals for the shift include Rest The clinical goals for the shift include pt comfort, HDS [facility]2025-04-09 20:18:45 The patient's goals for the shift include Rest The clinical goals for the shift include PAin control Problem: Pain - Adult Goal: Verbalizes/displays adequate comfort level or baseline comfort level Outcome: Ongoing Problem: Safety - Adult Goal: Free from fall injury Outcome: Ongoing Flowsheets (Taken 07/06/20241999) Free from fall injury: Instruct family/caregiver on patient safety Based on caregiver fall risk screen, instruct family/caregiver to ask for assistance with transferring infant if caregiver noted to have fall risk factors Problem: Discharge Planning Goal: Discharge to home or other facility with appropriate resources Outcome: Ongoing Problem: Chronic Conditions and Co-morbidities Goal: Patient's chronic conditions and co-morbidity symptoms are monitored and maintained or improved Outcome: Ongoing [facility]2025-04-09 02:20:12 Problem: Pain - Adult Goal: Verbalizes/displays adequate comfort level or baseline comfort level Outcome: Ongoing Problem: Safety - Adult Goal: Free from fall injury Outcome: Ongoing Flowsheets (Taken 07/05/20241999) Free from fall injury: Instruct family/caregiver on patient safety Based on caregiver fall risk screen, instruct family/caregiver to ask for assistance with transferring infant if caregiver noted to have fall risk factors Problem: Discharge Planning Goal: Discharge to home or other facility with appropriate resources Outcome: Ongoing Problem: Chronic Conditions and Co-morbidities Goal: Patient's chronic conditions and co-morbidity symptoms are monitored and maintained or improved Outcome: Ongoing [facility]2025-04-08 08:00:00 Problem: Pain - Adult Goal: Verbalizes/displays adequate comfort level or baseline comfort level Outcome: Progressing Problem: Safety - Adult Goal: Free from fall injury Outcome: Progressing Problem: Discharge Planning Goal: Discharge to home or other facility with appropriate resources Outcome: Progressing Problem: Chronic Conditions and Co-morbidities Goal: Patient's chronic conditions and co-morbidity symptoms are monitored and maintained or improved Outcome: Progressing The patient is Moderately Unstable - Medium risk of patient condition declining or worsening The patient's goals for the shift include rest The clinical goals for the shift include remain hemodynamically stable Over the shift, the patient did not make progress toward the following goals. Barriers to progression include patient's acuity of illness. Recommendations to address these barriers include continue with medical management. [facility]64-[facility] 08:38:16 CLINICAL PHARMACY ENDOCRINOLOGY VISIT DATE: 06/28/2024 [...] first attempt. Kassie Veras PharmD Pharmacy Clinical C Java Developer - Family Medicine Kassie Veras PharmD Pharmacy Clinical C Java Developer - Family Medicine Agnelica Veras [facility]2025-03-31 12:54:16 Refill has been sent to pharmacy on file per insurance requests in 1.5 ml vials Mireya Shea [facility]HealthCvczzn9692-11-79 12:12:17 Call placed to pts EC, States needing referral for Neuro not cardiology, denies changes in insurance from 02/2024, informed pt has active referral that will 02/2025. EC to call clinic if further assistance is required. ERADICATOR Lesia Glez RNAultman HospitalRtkwtd4439-90-22 09:48:09 Evelia Casas is a 59 year old female Daughter Ashlyn called and scheduled cardiology appt and may need referral due to insurance. Ins. Co.: [facility] [employer] Policy#: [id number] [facility] Referral yes Pre-Cert #: Authorization#: #Visits: 10 Expires: // Appointment is 07/08/24 at 10 AM with Jeff Lu Location: [address] [facility], [address] Phone#: [phone] Fax#: [phone] Instructions: Memory changes Correspondence: LLE ToAultman HospitalOudeqb4888-12-61 09:30:00 Addended by: JESS DOAN MD on: 06/01/2024 06:36 PM Modules accepted: Level of Service [facility]2025-02-04 09:00:00 Images from the original note were not included. Venipuncture collection performed by clean technique on the right anticubitus. Total of 1 attempts were made. Slight pressure and a bandage/dressing were applied to the site(s). The patient experienced no complications. The following specimens were processed according to instructions and sent to [facility] laboratories per lab order on [...] 2 Urine Culture Aptima tube Other urine [place] 176105-01-27 11:22:17 Essential hypertension [I10] - Primary Per chart review pt has been referred to cardio in the past, referral has been regenerated. [place] 176105-01-27 11:06:59 Patient is scheduled 04/28 with cardiology to see and needs a new referral please advise. Lesia PritchardCity HospitalLmutun2400-62-34 11:56:19 Evelia Casas is a 59 year old female Pt is calling stating she forgot how much insulin she is to be taking now. Please call to advise Celi PedrozaAultman HospitalNetuxt4119-58-40 13:16:26 Mychart Active, message sent. ERADICATOR Mireya Shea FirstHealthPhpfsh0249-44-78 12:43:03 Pt has an appt on 04/12 and would like to know if labs are needed. Pls advise. ERADICATOR Lindsay WatersAultman HospitalOyrxwz0161-49-47 11:35:55 Images from the original note were not included. ERADICATOR Genny HaydenAultman HospitalTusegd2227-79-36 14:40:48 Call placed to nurse, Reports elevated [...] receiving 30 units. Attempted to contact pt, has not been set up. Lesia Ibrahim RN 04/01/2024 2:58 PM Disp Refills Start End [...] to Pharmacy: Increased dose Route: Subcutaneous Order: [id number] Date/Time Signed: 02/03/2024 13:31 E-Prescribing Status: Receipt confirmed by pharmacy (02/03/2024 1:31 PM TICK ERADICATOR) insulin aspart U-100 (NOVOLOG FLEXPEN U-100 INSULIN) [...] U-100 Insulin) Class: eRX Route: Subcutaneous Order: [id number] Date/Time Signed: 02/03/2024 13:31 E-Prescribing Status: Receipt confirmed by pharmacy (02/03/2024 1:31 PM TICK ERADICATOR) Recent Visits Date Type Provider Dept 03/09/24 Office Visit Justina Melendez NP [facility] Medicine 03/09/24 Office Visit Justina Melendez NP [facility] 01/13/24 Office Visit Justina Melendez NP [facility] 12/15/23 Office Visit Justina Melendez NP [facility] Medicine 09/07/23 Office Visit Justina Melendez NP [facility] Medicine 06/08/23 Office Visit Justina Melendze NP [facility] Medicine 04/22/23 Office Visit Marshall Werner MD [facility] 01/07/23 Office Visit Justina Melendez NP [facility] 01/07/23 Office Visit Justina Melendez NP [facility] Showing recent visits within past 540 days with a meds authorizing provider and meeting all other requirements Future Appointments Date Type Provider Dept 06/08/24 Appointment Justina Melendez NP [facility] Medicine Showing future appointments within next 150 days with a meds authorizing provider and meeting all other requirements ERADICATOR Lesia Glez [facility] - Ifvdop8730-88-36 13:06:47 Evelia Casas is a 59 year old female and her HH nurse is calling to notify the pts PCP of pts blood sugar readings. This morning is was 450 and afternoon it was 370. Nurse stated the pt ate 2 meals that were very high in carbs and recommenced pts to avoid foods with such high carbs intake. Please advise. ERADICATOR Elinor MorelAultman HospitalAzioct9902-16-89 14:05:10 Routing to for assistance. ERADICATOR Lesia Glez RNAultman HospitalGzkyzv0892-00-61 12:26:24 Evelia Casas is a 59 year old female [facility] with Home Health calling to request services before the patients requesting visit for tomorrow. Please contact [phone] Fax: [phone] ERADICATOR Ronaldo RappAultman HospitalLbubuf5852-86-56 08:31:29 Images from the original note were [...] Melendez NP Last refill: 12/10/2023 Rx #: [id number] Anti-Herpes Gkokno9502/26/2024 06:13 PM Protocol Details Valid encounter within last 12 months Herpes simplex virus (HSV) is on problem list To be filled at: [facility] [address] [facility] [place] [address] MUNOZ 01-13-2024 NOV 03-09-2024 ERADICATOR Mireya Hernandez [facility] HospitalHsagls9242-71-10 12:33:06 RN called patient to discuss candidacy [...] 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 Patient upset about MD recommendations and requesting MD to speak with her. ERADICATOR Lucina Cisneros RNAultman HospitalRybztz0574-24-72 08:45:04 Attempted to contact pt. LVM that I will call again at a later time. [place] 176104-11-21 15:04:01 Saw same previous old stroke in the right temporal area, nothing else not PN-NEUROLOGY [facility]2024-11-18 08:29:17 Dr. Bernard, please review CT results and advise. [place] 176104-11-16 12:39:07 Evelia Casas is a 58 year old female Pt is calling stating they just wanted to inform clinic and Dr. Bernard that they got their CT scan on 02/12 ERADICATOR Stephania LlanesChillicothe VA Medical CenterPaqupq1836-47-38 14:33:33 Routed to [facility] as I am not the one who placed the parachute order, I cannot access it to update with notes. ERADICATOR Mireya Shea FirstHealthPszvlx5419-07-56 10:39:26 Refill has been sent to pharmacy on file. Recent Visits Date Type Provider Dept 01/13/24 Office Visit Justina Melendez NP [facility] Future Appointments Date Type Provider Dept 03/07/24 Appointment Justina Melendez NP [facility] 04/12/24 Appointment Jess Doan MD [facility]- Endocrinology Showing future appointments within next 150 days with a meds authorizing provider and meeting all other requirements Mireya Shea FirstHealthHtqexl6561-29-36 09:48:56 Evelia Casas is a 58 year old female Pt is requesting a refill on Rx Blood-Glucose Sensor (FREESTYLE KARAL 3 SENSOR) Debbie [facility] Pharmacy [address] AT [facility] & S[address] Au [address] [place] [id number] [facility] Pkdyyv9745-45-39 09:38:16 Diabetes supplies ordered by . Routing call to [facility] LLE Glez RNAultman HospitalAakohu0597-61-97 15:18:44 Ashlyn with [facility] requesting to renew the prescription for the [...] for this information to be sent over Snaptrip. Please advise. LLE Dan [facility]2024-11-11 09:26:44 CLINICAL PHARMACY ENDOCRINOLOGY VISIT DATE: 02/08/24 [...] regards to hypoglycemia management. Sent patient a Layer3 TVt message with handout to refer to for hypoglycemia. Patient verbalized understanding. Plan/Recommendations: Take Toujeo Solostar U-300 (insulin glargine) to 33 units daily (AM) Take Novolog Flexpen (insulin aspart) 11 units 3x/day with each meal If eating a smaller/lower carb meal take HALF the dose (5-6 units) If skipping a meal, SKIP dose PharmD will follow up next month Angelika Bryan PharmD, APRIL Pharmacy Clinical C Java Developer- Endocrinology Future Appointments Provider Department Dept Phone 04/12/2024 10:30 AM [facility] [phone] Angelika Bryan [facility]2024-11-11 08:23:00 02/08/24 Attempted to return pt missed call. No answer LVM [place]LE [place] [address]Hiyqom1706-16-51 13:32:52 Addended by: ANGELIKA BRYAN RPH on: 02/03/2024 01:32 PM Modules accepted: Orders Angelika Bryan [place] 438654-11-06 13:32:38 I was present with the resident at the time of this encounter on 02/03/24. I discussed the case with Irwin Pimentel PharmD (PGY2 Artificial Stone Setter Sole Leather Cutting Machine Operator) and agree with the assessment and plan. I have reviewed the progress note and I agree with the note as written. Angelika Bryan PharmD, APRIL Pharmacy Clinical C Java Developer- Endocrinology [place] 176104-11-06 13:22:11 Addended by: IRWIN PIMENTEL on: 02/03/2024 01:22 PM Modules accepted: Orders [place] 176104-11-06 13:19:18 Addended by: IRWIN PIMENTEL on: 02/03/2024 01:19 PM Modules accepted: Orders [place] 176104-11-06 10:36:24 CLINICAL PHARMACY ENDOCRINOLOGY VISIT- 02/03/24 DATE: [...] Visual changes Complications of diabetes: Macrovascular: [-] NH [+] CABG/PCI/other re-vascularization procedure Microvascular [-] Retinopathy [...] Dinner Date before before before 6-Jan 305 -Jan 514 246 201 322 128 -Jan 279 324 425 454 -Jan 364 511 309 299 187 336 70 356 AVG 357 267 285 MIN 279 70 128 MAX 514 454 511 N [address]: 313 Last visit's SMBG reading: Date Fasting Pre-lunch Pre-dinner Bedtime 12/15 218 12/14 245 124 220 176 12/13 300 197 406 217 12/12 274 (ate chicken enchiladas, rice, and beans for dinner night before) 12/11 165 (2 eggs, 1/2 iranian muffin) 70 341 281 12/10 202 (small [...] 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 01/13/24 Justina Melendez NP ACCU-CHEK GUIDE GLUCOSE METER Misc Use as [...] Jess Doan MD insulin glargine U-300 conc (TOUJERMAINE SOLOSTAR U-300 INSULIN) 300 unit/mL (1.5 mL) [...] 3PM DAILY. 11/17/23 Jess Doan MD Insulin Maurepas, Disposable, (NOVOFINE 32) 32 gauge x 1/4" [...] tablet in the evening. 11/03/23 Griffin Guevara K.HMD [place] acetaminophen-codeine 300-30 mg tablet Take 1 tablet [...] mouth in the morning. 04/06/23 Griffin Guevara K.HMD [place] enalapril 2.5 mg tablet Take 1 tablet [...] propionate 50 mcg/actuation nasal spray Use 1 [place] in each nostril in the morning and 1 [place] in the evening. 08/11/22 Antonette Quarles MD polyethylene glycol 3350 (CLEARLAX) 17 gram/dose powder Take 17 g by mouth in the morning and 17 g in the evening. Patient taking differently: Take 17 g by mouth in the morning and 17 g in the evening. As needed 08/11/22 Antonette Quarles MD biotin 1 mg Cap Take 1 capsule by mouth daily. Doctor Unassigned, [place] MULTIVITAMIN ORAL Take 1 tablet by mouth in the morning. Doctor Unassigned, [place] Allergies/ADR: Allergies Allergen Reactions Adhesive Tape Rash [...] 11/17/23 1153 HGBA1C -- 10.3* 10.3* -- [id number] 10.3* -- -- 9.9* MICROAL/CR (no units) [...] spent with patient/coordination: 30 minutes Irwin Pimentel, Karime PGY2 Artificial Stone Setter Sole Leather Cutting Machine Operator Future Appointments Provider Department Dept Phone 04/12/2024 10:30 AM [facility] MD [facility] [phone] [facility]2024-11-06 09:00:00 Images from the original note were not included. Venipuncture collection performed by clean technique on the left anticubitus. Total of 1 attempts were made. Slight pressure and a bandage/dressing were applied to the site(s). The patient experienced no complications. The following specimens were processed according to instructions and sent to [facility] laboratories per lab order on 02/03/2024 : LT BLUE SST 1 RED LAV 2 PPT 1 DK GREEN (LiHep) DK GREEN (SodH) [place] DK BLUE (K2) DK BLUE (S) ACD Blood Culture NIPT/NTD Patient has been identified by and was provided with cup, antiseptic towelette, and clean catch instructions. 3 urine specimen(s) sent. Unpreserved 3 Urine Culture Aptima tube Other urine [facility]2024-10-31 11:05:33 Submitted for Financial Review Referral received via: Phone How did the patient hear about our program: Neph Post Team Referring MD: Omar Weiss MD Specialty: Quilting Machine Operator (Kidney) Insurance Information: Medicare [id number]( She didn't have a new card with her) [facility] [id number] # [id number] Request a copy of insurance if it [...] previous transplant (s): yes, when and where [facility] What caused the patients' disease? Unkn Is the patient on dialysis? No Does the patient have cancer or a history of : no Does the patient have HIV/AIDS: no Do you have a history of heart problems or heart disease: yes Do you have a life skills educator? Yes If yes Paleontology Teacher name and contact information: Dr. Guevara [facility] Have you had heart testing: [...] past 3 years? Yes If yes where: [facility] ERADICATOR Dm LipscombAultman HospitalOuvabg8868-39-00 13:27:44 Returned pt call as requested. Pt asking to clarify tac dose, states she has been taking 0.5mg BID. Advised pt her prescribed dose is 1mg/0.5mg. pt verbalizes understanding. Yin Prakash RNAultman HospitalIczabg4917-32-72 10:34:56 Evelia Casas is a 58 year old female Pt is requesting a call from a nurse to go over her tacrolimus 0.5 mg capsule dosage. Please advise Alanna TurciosAultman HospitalKlnfly7526-81-41 08:08:16 CLINICAL PHARMACY ENDOCRINOLOGY VISIT Evelia Casas [...] half If skipping a meal, hold dose 01/21/24: Unable to reach patient (x2). Left voicemail with callback number. Will try again in a few weeks. Irwin Pimentel PharmD PGY2 Artificial Stone Setter Sole Leather Cutting Machine Operator Future Appointments Provider Department Dept Phone 04/12/2024 10:30 AM Jess Doan MD [facility], [facility] [phone] Irwin Pimentel [place] 438654-10-09 11:49:43 I was present with the resident at the time of this encounter on 01/06/24. I discussed the case with Irwin Pimentel PharmD (PGY2 Artificial Stone Setter Sole Leather Cutting Machine Operator) and agree with the assessment and plan. I have reviewed the progress note and I agree with the note as written. Angelika Bryan PharmD, [facility] Pharmacy Clinical C Java Developer- Endocrinology Angelika Bryan [facility]2024-10-09 07:39:44 CLINICAL PHARMACY ENDOCRINOLOGY VISIT- 01/06/24 DATE: [...] Visual changes Complications of diabetes: Macrovascular: [-] NH [+] CABG/PCI/other re-vascularization procedure Microvascular [-] Retinopathy [...] after 9-Dec 324 8-Oct 197 116 220 7-Oct 216 166 263 6-Oct 321 237 130 [...] night before) 12/11 165 (2 eggs, 1/2 iranian muffin) 70 341 281 9/13 202 (small breakfast) 75 243 274 Average 234 mg/dL 117 mg/dL 303 mg/dL 237 mg/dL Objective: Past Medical History: Diagnosis Date 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 11/17/23 Jess Doan MD Insulin Maurepas, Disposable, (NOVOFINE 32) 32 gauge x 1/4" [...] CEFDINIR ORAL Take by mouth. Doctor Unassigned, [place] acetaminophen-codeine 300-30 mg tablet Take 1 tablet [...] propionate 50 mcg/actuation nasal spray Use 1 [place] in each nostril in the morning and 1 [place] in the evening. 08/11/22 Antonette Quarles MD polyethylene glycol 3350 (CLEARLAX) 17 gram/dose powder Take 17 g by mouth in the morning and 17 g in the evening. Patient taking differently: Take 17 g by mouth in the morning and 17 g in the evening. As needed 08/11/22 Antonette Quarles MD biotin 1 mg Cap Take 1 capsule by mouth daily. Doctor Unassigned, [place] MULTIVITAMIN ORAL Take 1 tablet by mouth in the morning. Doctor Unassigned, [place] Allergies/ADR: Allergies Allergen Reactions Adhesive Tape Rash [...] 11/17/23 1153 HGBA1C -- 10.3* 10.3* -- [id number] 10.3* -- -- 9.9* MICROAL/CR (no units) [...] patient/coordination: 30 minutes Irwin Pimentel PharmD PGY2 Artificial Stone Setter Sole Leather Cutting Machine Operator Future Appointments Provider Department Dept Phone 04/12/2024 10:30 AM Jess Doan MD [facility], [facility] [phone] Irwin Pimentel [facility]2024-09-24 16:50:42 Called and left a message that she needs to call the main number to ask for appt for eval for a new pancreas. I gave her the number and also let her know her next appt is for kidney appt. Russ Arcos FirstHealthKnvhoz0645-91-23 16:24:06 Left VM that Remoovt message would be sent. Sandi Aguilar [facility]2024-09-24 11:39:47 Pt would like to confirm if her next appt is to evaluate her for a new pancreas transplant. Pls advise. Lindsay WatersAlisha [place] 659244-09-23 09:48:39 Left VM that new order had been placed. Advised pt if this was not covered to f/u with pharmacy regarding which is covered by her insurance or reaching out to the insurance company. Sandi Aguilar [facility]2024-09-23 09:14:33 Addressed in another encounter Yin Prakash FirstHealthNbbsrl1228-42-10 09:11:57 Called pt again to discuss low tac level, she reports she has been taking 0.5mg BID rather than prescribed 1mg/0.5mg d/t misunderstanding. Discussed dose she should be taking, she verbalizes understanding, denies questions. Pt will repeat labs in 5-7 days. Yin Prakash FirstHealthXilxxh4548-73-99 18:52:57 I placed order for accucheck meter and test strip/lancet. Patient will need to verify with pharmacy which brand is covered by her insurance BTW, if she got [facility]B strip, she will need to check meter to HEB meter [facility] HospitalXyojpg1076-55-77 15:33:42 Evelia Casas is a 58 year [...] by insurance. Pt can be contacted at [phone] (home). Lamine StanleyAultman HospitalOscksc4515-39-60 13:36:13 Pt called-LVM returning the coordinator phone call. Please call her back Sheila SolanoLake Norman Regional Medical CenterTtmbjc8901-15-32 13:27:26 Called pt again to discuss low tac level. No answer left detailed VM requesting call back. Yin Prakash FirstHealthQysabq1656-33-08 16:01:25 Review of last labs show a tacrolimus level of < 3. Called to discuss, had to leave a message for a call back. Russ Arcos [facility]HealthPzdanv1755-43-05 11:57:26 Dr. Doan, pt insurance does not cover One touch Verio. [facility] pharm wants to know if the Rx can be changed to the [facility] In Control instead. Freestyle was ordered for pt yesterday after consult with Cem Bryan. Please d/c One Touch Verio meter and strips if no longer needed. [facility]ult[facility] HospitalJqozjo5302-12-71 09:33:53 Evelia Casas is a 58 year old female Fernando with [facility] pharmacy calling stating the pts insurance doesn't want to pay for the One touch Verio. Wants to know if the Rx can be changed to the [facility] In Control instead? Please advise [facility] Pharmacy [place], [place] - [address] [place] [address] Drive AT [place] [address] Kathy GeigerAlisha [place] 659244-09-18 15:33:19 Duplicate encounter Future Appointments Date Type Provider Dept 04/12/24 Appointment Jess Doan MD [facility]- Endocrinology Showing future appointments within next 150 days with a meds authorizing provider and meeting all other requirements Mireya Shea RNAultman HospitalQmbuyp1561-56-86 15:06:02 I was present with the resident at the time of this encounter on 12/16/23. I discussed the case with Irwin Pimentel PharmD (PGY2 Artificial Stone Setter Sole Leather Cutting Machine Operator) and agree with the assessment and plan. I have reviewed the progress note and I agree with the note as written. 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 E10.65 11/24/23 Jess Doan MD Blood-Glucose Sensor (FREESTYLE KARLA [...] up to 40 units a day E10.65 11/17/23 Jess Doan MD Insulin Maurepas, Disposable, (NOVOFINE 32) 32 gauge x 1/4" [...] CEFDINIR ORAL Take by mouth. Doctor Unassigned, [place] acetaminophen-codeine 300-30 mg tablet Take 1 tablet [...] Shortness of Breath. 11/17/22 Ita Cai DO aspirin 81 mg chewable tablet Take 1 tablet by mouth in the morning. 08/11/22 Antonette Quarles MD budesonide-formoteroL (SYMBICORT) 80-4.5 mcg/actuation inhaler Inhale 2 Puffs in the morning and 2 Puffs in the evening. 08/11/22 Antonette Quarles MD cyclobenzaprine 10 mg tablet Take 1 tablet by mouth at bedtime. 08/11/22 Antonette Quarles MD fluticasone propionate 50 mcg/actuation nasal spray Use 1 [place] in each nostril in the morning and 1 [place] in the evening. 08/11/22 Antonette Quarles MD polyethylene glycol 3350 (CLEARLAX) 17 gram/dose powder Take 17 g by mouth in the morning and 17 g in the evening. Patient taking differently: Take 17 g by mouth in the morning and 17 g in the evening. As needed 08/11/22 Antonette Quarles MD biotin 1 mg Cap Take 1 capsule by mouth daily. Doctor Unassigned, [place] MULTIVITAMIN ORAL Take 1 tablet by mouth in the morning. Doctor Unassigned, [place] Allergies/ADR: Allergies Allergen Reactions Adhesive Tape Rash [...] 11/17/23 1153 HGBA1C -- 10.3* 10.3* -- [id number] 10.3* -- -- 9.9* MICROAL/CR (no units) [...] 3 yet d/t cost Will send to [facility] Pharm[facility] as sensors and reader covered Will [...] patient/coordination: 30 minutes Irwin Pimentel, PharmD PGY2 Artificial Stone Setter Sole Leather Cutting Machine Operator Future Appointments Provider Department Dept Phone 04/12/2024 10:30 AM [facility] [phone] Irwin Pimentel [facility]2024-09-18 09:00:21 LM for patient to call back at earliest convenience. Mireya Shea RNAultman HospitalVvodwc9495-62-67 17:21:17 Her thyroid and vitamin D level was normal [facility] HospitalZfabql9166-93-02 13:50:55 [facility] calling to have script changed to Truemetri so insurance will cover Yair Salinas EfraínUniversity Hospitals Samaritan Medical CenterToszqm2124-87-64 13:22:56 Medicare only cover max 3 times glucose testing . RX for onetouch meter/strip was sent Did she received her karla 3 CGM? [facility] HospitalDyjxio0512-86-65 11:16:40 Evelia Casas is a 58 year old female PT is needing one touch strips rx for a different meter that she got in order for insurance to cover it . States she is checking it 5 times a day Please advise, thank you [facility] Pharmacy [address] & [address] [address] Danisha GarciaAultman HospitalAuzlka2759-77-67 09:15:00 Images from the original note were not included. Venipuncture collection performed by clean technique on the right anticubitus. Total of 1 attempts were made. Slight pressure and a bandage/dressing were applied to the site(s). The patient experienced no complications. The following specimens were processed according to instructions and sent to [facility] laboratories per lab order on [...] Urine Culture Aptima tube Other urine T [facility] HospitalTkvahy3434-51-64 15:15:42 Lm for patient for clarification. One touch strips not Rx'ed, we have freestyle lite strips RX. Mireya Shea FirstHealthSexiwn4698-21-37 14:04:30 Evelia Casas is a 58 year old female Pt is calling to request provider to send a prescription requesting strips for one touch meter, Pt states, pharmacy is requesting prescription, Please advise [facility] Pharmacy [place] - [address] AT [address] Sandi RappAultman HospitalIuktyk6561-36-29 11:20:59 RX sent to pharmacy on file. [place] 106514-09-12 11:14:26 Evelia Casas is a 58 year old female Pt needing one touch strips called in for meter , uses 4 strips a day For insurance purposes Please advise, thank you Danisha GarciaAultman HospitalLrrwcj3853-51-76 11:02:41 Please see other TE dated 12/10/2023. Lesia Glez RNAultman HospitalHdmxjd7897-95-23 11:01:44 Left detailed message, pt to call [facility] to have her medication transferred as this medication was sent to another [facility], Pt to also have pharmacy send us PA request. [facility] HospitalEjfqrj7349-70-27 10:50:36 Evelia Casas is a 58 year old female Patient states that she is needing a prior authorization for the sertraline 100 mg and enalapril 2.5 mg. [employer] [phone] Jeanne GallardoalvertoAultman HospitalGczhpn3036-25-27 10:42:03 Evelia Casas is a 58 year old female is calling in requesting for acyclovir to be transferred to [facility] Pharmacy [address] AT [facility] & [address] [address] . Sujata QuintanaAultman HospitalIfihnh9923-47-55 08:35:05 Images from the original note were [...] Melendez NP Last refill: 10/09/2023 Rx #: [id number] Anti-Herpes Mwfvdf6212/09/2023 08:19 PM Protocol Details Valid encounter within last 12 months Herpes simplex virus (HSV) is on problem list To be filled at: [facility] Pharmacy [facility] [address] Last Refilled: 10/09/2023 Recent Visits Date Type Provider Dept 09/07/23 Office Visit Justina Melendez NP [facility] 06/08/23 Office Visit Justina Melendez NP [facility] 04/22/23 Office Visit Marshall Werner MD [facility] 01/07/23 Office Visit Justina Melendez NP [facility] 01/07/23 Office Visit Justina Melendez NP [facility] 09/10/22 Office Visit Justina Melendez NP [facility] Showing recent visits within past 540 days with a meds authorizing provider and meeting all other requirements Future Appointments Date Type Provider Dept 12/15/23 Appointment Justina Melendez NP [facility] Showing future appointments within next 150 days with a meds authorizing provider and meeting all other requirements Ashlyn Flower [facility]Gwcjrb7367-79-94 10:19:28 Images from the original note were [...] Melendez NP Last refill: 09/06/2023 Rx #: [id number] Cardiovascular: Antilipid - HMG-CoA Reductase Inhibitors Pmufgr6912/08/2023 03:50 PM Protocol Details Valid encounter within last 12 months Total Cholesterol within 360 days LDL within 360 days HDL within 360 days Triglycerides within 360 days AST in normal range and within 360 days ALT in normal range and within 360 days To be filled at: [facility] Pharmacy [facility], [place] - [address] Last Refilled: 12/02/2023-pharmacy change. Last Rx was sent to [facility] Recent Visits Date Type Provider Dept 09/07/23 Office Visit Justina Melendez NP [facility] 06/08/23 Office Visit Justina Melendez NP [facility] 04/22/23 Office Visit Marshall Werner MD [facility] 01/07/23 Office Visit Justina Melendez NP [facility] 01/07/23 Office Visit Justina Melendez NP [facility] 09/10/22 Office Visit Justina Melendez NP [facility] Showing recent visits within past 540 days with a meds authorizing provider and meeting all other requirements Future Appointments Date Type Provider Dept 12/15/23 Appointment Justina Melendez NP [facility] Showing future appointments within next 150 days with a meds authorizing provider and meeting all other requirements Ashlyn Flower MAAultman HospitalOwjfsh5614-31-84 12:13:13 Returned pt call, no answer. Left detailed VM advising pt she can [facility] prior to appt if she prefers. Confirmed [facility] lab orders are updated. Yin Prakash FirstHealthQwaiku9217-70-98 11:32:24 Evelia Casas is a 58 year old female Pt is calling to speak with a nurse regarding lab orders, Pt is asking if labs may be completed on the same day as her transplant appointment, Pt states, she is scheduled for labs on 12/14 but normally goes to [facility], Pt is asking which provider ordered labs, Please advise (home) Sandi RappAultman HospitalQgtcyr5120-07-43 05:49:37 Addended by: JUSTINA MELENDEZ NP on: 12/02/2023 05:49 AM Modules accepted: Orders [place] [address]-08-29 15:30:00 Patient presented with specimen for drop-off and was identified by and name. Collection information/ total volume were documented accordingly. The following specimens were sent to [facility] laboratories per lab order on 11/26/2023 : 24 hour urine Random urine 3 Stool Swab Other [place] 659244-08-27 15:52:35 Per hydrocortisone request: Evelia Casas (Mcdaniel: [id number]) Outcome Available without authorization. Hydrocortisone 10MG tablets Per sensor request: Evelia Casas (Mcdaniel: [id number]) Authorization already on file for this request. Drug FreeStyle Karla 3 Sensor Both medications should be available at pharmacy for pickup. Mireya Shea RNAultman HospitalFngmqt3642-24-33 15:44:51 Evelia Casas is a 58 year old female Pt calling stating she is needing PA for freestyle karla 3 kit sent to [facility] pharmacy in [place] Lamine StanleyAultman HospitalJwvocb8280-10-22 15:40:57 Evelia Casas is a 58 year old female Pt calling regarding rx hydrocortisone 10 mg tablet states she is needing PA for a 30day supply. Sent to pharmacy. Pt has one pill left. [place] 659244-08-27 11:29:04 RX sent in for 30d supply. PA has been requested. Noted about ER visit. Any further elevated bg readings please return to ER. T [place] 659244-08-27 10:57:56 Pt is requesting a rx change [...] glucose level is 420. Pls advise. Lindsay WatersAlisha [place] 659244-08-26 23:41:51 Pt discharged with diagnosis of uncontrolled [...] to site, catheter in tact. Christiana Flower RNAlisha [place] 659244-08-26 22:45:34 Provider at bedside [place] 659244-08-26 21:34:00 Provider at bedside [facility] HospitalIkvpqd2981-44-63 20:04:59 Pt arrived ambulatory without assist. Pt c/o high blood glucose for 2-3 days. BG 351 in Triage. Pt home monitor reading 459 in triage. Shy Conway FirstHealthYzsmng3246-68-92 18:13:46 Evelia Casas is a 58 year old female is calling wanting to speak with a nurse. Per pt she has been running high sugars but is unable to check them right now. Pt states she dipped her urine and is running ketones. Called out to Dr data processing control clerk Lucina Ro and she took the call Barby Vora 11/23/2023 6:14 PM Barby VoraAultman HospitalUjerqh1419-38-65 07:43:11 TAMMY 11/17/2023 NOV 04/12/2024 hydrocortisone 10 mg tablet 225 tablet 3 Sent RX 11/17/2023 With 3 additional refill to pharmacy on file Danyell Grey MAAlisha V[place] 659244-08-22 10:09:25 Images from the original note were not included. LVM to call clinic regarding Results and recommendations , also placed in Griffin Quigley MD P Cardiology Nurse NT-proBNP stable. Direct LDL at goal 68. CK levels normal. Magnesium levels normal. Continue the current cardiac medications without any further changes. Kristina Briceno [place] 574644-08-22 08:32:16 Images from the original note were not included. [place] 659244-08-20 13:00:00 Images from the original note were not included. Venipuncture collection performed by clean technique on the right anticubitus. Total of 2 attempts were made. Slight pressure and a bandage/dressing were applied to the site(s). The patient experienced no complications. The following specimens were processed according to instructions and sent to [facility] laboratories per lab order on 11/17/2023 : LT BLUE SST 3 RED LAV 2 PPT DK GREEN (LiHep) DK GREEN (SodH) REDMOND DK BLUE (K2) DK BLUE (S) ACD Blood Culture NIPT/NTD Pt couldnt void, sent home with sterile urine collection kit Madhuri Cota 11/17/2023 1:30 PM [place] 659244-08-19 15:42:54 Information from clinical pharmacist was that ranolazine can cause increase in tacrolimus levels. Called the pt and let her know. [facility]. Orders updated. T Russ Arcos RNAlisha [place] 659244-08-19 15:20:47 Referral has been renewed. JESS DOAN [...] Dept 09/07/23 Office Visit Justina Melendez NP [facility] 06/08/23 Office Visit Justina Melendez NP [facility] 04/22/23 Office Visit Marshall Werner MD [facility] 01/07/23 Office Visit Justina Melendez NP [facility] 01/07/23 Office Visit Justina Melendez NP [facility] 09/10/22 Office Visit Justina Melendez NP [facility] 06/10/22 Office Visit Justina Melendez NP [facility] Showing recent visits within past 540 days with a meds authorizing provider and meeting all other requirements Future Appointments Date Type Provider Dept 12/08/23 Appointment Justina Melendez NP [facility] Showing future appointments within next 150 days with a meds authorizing provider and meeting all other requirements [place] 659244-08-19 13:41:52 Patient has appt with Dr doan on 11/16 insurance is requiring authorized referral. Please assist Faye ShabazzRonald [place] 427144-08-16 10:28:54 Evelia Casas is a 58 year old female patient calling to see if she can take her Tacrolimus and Ranolazine 500 mg together? Please call [phone] Bobbi BolandCity HospitalRrrvwr2687-38-02 07:22:05 ----- Message from Griffin Guevara MD [...] But she cannot go back to Lexapro. [facility] - Nisepd4585-72-55 08:18:59 Attempted to return patients call, no answer. [facility] Beatriz Campa MA 11/06/2023 8:20 AM Beatriz Campa MAAultman HospitalXcpxxg1102-53-05 16:03:05 Evelia Casas is a 58 year old female and is returning a missed call. She stated that she cannot take the Lexapro anymore due to a new heart medication (ranolazine) she is on from her life skills educator. Pt was asking for a new prescription for another medication to help with her anxiety that won't interact with the new medicine. Her life skills educator told her he had sent a message for a med change to Nurse Melendez's office and pt wanted to follow-up. Giovana MontelongoAultman HospitalQdatti3116-79-90 11:48:06 Call placed to pt, ivanm to discuss which medication she is now taking as message states she is not taking Lexapro and no other medication is listed for anxiety. Lesia Glez RNAultman HospitalOzgekz9121-07-30 11:29:08 KERRI LANDON MA 11/05/2023 11:29 AM Kerri Landon MAAultman HospitalOfktae5341-46-01 11:21:18 Pt calling to check status of new rx for anxiety since she is not taking the Lexapro. Please Advise. B Pharmacy [facility], [place] - [address] [facility] [phone] Dora N AngelitaUniversity Hospitals Samaritan Medical CenterToukse9353-66-84 09:09:[address] Guevara's note. They will remove escitalopram from patient's list so they she cannot refill. No further questions. Candy Dorantes FirstHealthQziyfm3393-43-58 16:26:43 I an aware of the interaction. Hence I did not started in the last office visit. Per patient she has not been taking the citalopram for the last 1 month. I also messaged the PCP to change citalopram to another antianxiety medication that does not interact with Ranexa. Please ask pharmacy to take her off the citalopram completely in the future. [facility] HospitalFaikkw1677-44-39 15:51:03 Evelia Casas is a 58 year old female Zoe from [facility] Pharmacy called in stating ranolazine 500 mg 12 hr tablet was ordered but it interacts with the xulwjcjhkfeo10fb she is currently asking for clarification. please advise [facility] Pharmacy [place], [place] - [address] & [facility] Kelley SinghAultman HospitalSxfmit4195-34-08 15:02:[address] Guevara for review. Candy Dorantes FirstHealthBbhwyw5362-47-41 13:05:02 Evelia Casas is a 58 year old female Pt pharmacy called in stating ranolazine 500 mg 12 hr tablet was ordered but it interacts with the pyzethbaowrz87uq she is currently on pharmacy is asking for clarification. please advise [facility] [place] [address] T Machelle FlowerAultman HospitalKirqxe7465-23-33 10:00:00 Images from the original note were not included. Venipuncture collection performed by clean technique on the right forearm(s). Total of 1 attempts were made. Slight pressure and a bandage/dressing were applied to the site(s). The patient experienced no complications. The following specimens were processed according to instructions and sent to [facility] laboratories per lab order on [...] 2 Urine Culture Aptima tube Other urine On license of [facility]2024-07-01 15:14:48 Called the pt to make sure that she is getting better from the UTI she had on 09/23/2023. She is still taking the cefdinir and is feeling better and culture shows it is susceptible to that antibiotic. On license of [facility]2024-06-26 13:30:56 Patient dc home with UTI. Take rx as prescribed. Follow up with pcp. Verbalized understanding. Signed paper work. Petar Gillespie FirstHealthOkmhim8894-16-90 11:02:17 09/23/23 1055 09/23/23 1057 09/23/23 1059 Orthostatic Vitals BP 122/78 118/80 129/88 BP Location Right arm Right arm Right arm Position Lying Sitting Standing Pulse 90 95 104 Katy Angelo FirstHealthZbgnfv8026-10-01 09:48:01 Pt presents with concern for UTI.. Pt has frequency, urgency, burning and difficulty urinating for 2 days. Pt denies any abd or back pain, no reported fever. On license of [facility]2024-06-19 18:29:51 Images from the original note were not included. Griffin Guevara MD [place], [place]ge[place], DENIS Thank you. I verified and Sertraline/ranexa has [...] the changes made please let me know. [place] 106514-06-12 15:28:23 Call placed to pharmacy and verified medication as follows: Disp Refills Start End LIZZY escitalopram oxalate (LEXAPRO) 10 mg tablet 90 tablet 3 09/09/2023 -- No Sig: Take 1 tablet by mouth in the morning. Sent to pharmacy as: escitalopram 10 mg tablet (Lexapro) Class: eRX Route: Oral Order: [id number] Date/Time Signed: 09/09/2023 14:12 E-Prescribing Status: Receipt confirmed by pharmacy (09/09/2023 2:12 PM CDT) Lesia Glez RNAultman HospitalTyfzzr2355-19-86 14:48:22 Received call from Arleen at [facility] Pharmacy [address] & [facility] Stating pt has an active RX for Citalopram and she has a new medication, escitalopram oxalate (LEXAPRO) 10 mg tablet 10 mg, Oral, DAILY She wants to make sure pt is not taking both. Please advise [phone]. Yair DayAultman HospitalFwovgp6811-72-37 13:47:50 Pt calling to check status of the rx. Dora GoldsteinUniversity Hospitals Samaritan Medical CenterSxxwgq1147-55-18 10:44:03 Routing to provider. Mireya Hernandez MAAultman HospitalTmwedq2407-62-62 10:35:42 Evelia Casas is a 58 year old female Pt calling in stating pt was seen yesterday and Dr was supposed to have perscribed and sent in 2 new prescription celapram med and Tylenol with codeine. Please advise. [phone] (home) [phone] (work) [facility] Pharmacy [facility], [place] - [address] [facility] [phone] Sandi GuzmanAultman HospitalLyxqfg7392-54-85 08:56:46 Images from the original note were not included. 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 Last ordered: 2 months ago (07/02/2023) by Marshall Werner MD Endocrinology: Diabetes - Insulins Ooqljd0508/31/2023 10:44 AM Protocol Details Manual review: Staff refilling for [facility], Cr lab not required to refill Valid encounter within last 12 months HBA1C within 180 days Cr in normal range and within 360 days To be filled at: [facility] Pharmacy [facility], [place] - [address] TAMMY 06-08-2023 NOV 09-07-2023 Mireya Hernandez [facility] HospitalQpqnws3814-18-01 15:38:09 TAMMY: None NOV:08/25/23 Refill request will be addressed on the NOV. UNKNOWN PHYSICIAN [facility]2024-05-09 15:51:00 Regarding: weak and dizzy/ unstable with [...] medication today Specific Duration: today Marta Pedraza FirstHealthNehcmu4239-36-78 15:51:00 Adult Triage Assessment Last Clinic Visit: 08/03/23, cardiology, CAD Primary Symptom: dizzy Onset / Duration: today Location / Description: neuro Pain / Severity: 10 Associated Symptoms: weak, unsteady gait Fever / [...] for eval and reports will go to [facility]. Pt had no further questions or concerns. Call back advice given and pt verbalized understanding. Marta Pedraza RN Reason for Disposition Difficulty breathing Protocols used: Dizziness - Ulrcvsgvlargjhb-JBFZS-GZ [facility] HospitalQakshl0506-97-70 10:45:44 Images from the original note were [...] effects/increase in depression. And start sertraline daily. Lesia Glez RNAultman HospitalDanwye1774-34-13 10:35:27 Evelia Casas is a 58 year old female Jackie with [facility] is calling concerning the prescription for Sertraline 50 mg. The patient has citalopram 200 mg from another doctor that was just filled in June for 90 days. Pharmacy is asking if the patient will be stopping the citalopram. Please contact pharmacy to advise. [facility] [address] [address] Jeanne HolguinAultman HospitalKpxlvp5673-54-03 10:03:07 Called patient to discuss medication changes due to cardiovascular health. Taper off Citalopram 20 mg Cut pill in half. Decrease dose by 10 mg for two weeks daily, then every other for additional week then discontinue. Monitor for Side effects/increase in depression. And start sertraline daily. [facility] HospitalIfqblu3503-63-40 10:02:13 ----- Message from Griffin Guevara MD [...] the changes made please let me know. [place] [address]-05-06 14:39:12 ----- Message from Griffin Guevara MD [...] the changes made please let me know. [place] [address]-05-06 11:18:58 Referral for cardiology has been placed for patient. [place] 106514-04-04 13:59:24 Images from the original note were [...] Last refill: 04/12/2023 Endocrinology: Diabetes - Insulins Uonlxn8907/02/2023 12:22 PM Protocol Details Manual review: Staff refilling for [facility], Cr lab not required to refill Valid encounter within last 12 months HBA1C within 180 days Cr in normal range and within 360 days To be filled at: [facility] - [place], [place] - [address] Last Refilled: 04/12/2023 Recent Visits Date Type Provider Dept 06/08/23 Office Visit Justina Melendez NP [facility] Medicine 04/22/23 Office Visit Marshall Werner MD [facility] 01/07/23 Office Visit Justina Melendez NP [facility] Medicine 01/07/23 Office Visit Justina Melendez NP [facility] Medicine 09/10/22 Office Visit Justina Melendez NP [facility] Medicine 06/10/22 Office Visit Justina Melendez NP [facility] Medicine 04/22/22 Office Visit Justina Melendez NP [facility] 04/08/22 Office Visit Justina Melendez NP [facility] Showing recent visits within past 540 days with a meds authorizing provider and meeting all other requirements Future Appointments Date Type Provider Dept 09/07/23 Appointment Justina Melendez NP [facility] Medicine Showing future appointments within next 150 days with a meds authorizing provider and meeting all other requirements Ashlyn Flower MAAultman HospitalSytvta1925-27-06 11:00:00 Called for pt in waiting area no answer Meena AndujarAultman HospitalTxukvb7542-91-46 11:30:00 Patient did not come to lab today only radiology. [facility]Chillicothe [facility] CenterXrjypm2645-47-74 08:46:42 TAMMY:03/03/2024 NOV:11/10/2023 Plan: Continue Synthroid 50 mcg daily. Refills sent to pharmacy. Avis Galvin MA 06/16/2023 8:47 AM [place] 659244-03-15 12:39:57 Addended by: RUSS ARCOS RN on: 06/12/2023 12:39 PM Modules accepted: Orders T [place] 659244-03-15 12:34:32 Called the pt and she is [...] 3. New script sent to the pharmacy. [facility] HospitalWsgtjf7726-41-90 13:13:37 Called the to see if she had specific concerns she wanted to discuss at the office visit and why she could not wait until next available appt and also to discuss the last tac level of < 3. I asked for a call back since I had to leave a . T Russ Arcos [place] 659244-03-14 10:17:14 2nd attempt to contact patient with results was unsuccessful. LMOR for patient to return call to clinic.. MyChart message was sent with normal results and recommendations. T Shirley Negrete [place] 659244-03-13 14:35:42 Patient called to reschedule missed appointment, next available appointment is in June. Patient is asking to be added to June 24 clinic due to transportation. Overbook approval is needed. Please advise. Dm LipscombAlisha [place] 659244-03-13 13:27:55 Images from the original note were not included. Attempted to contact patient with results/recommendations. LVM for patient to return call to [phone]. Griffin Guevara MD P Cardiology Nurse BMP shows improvement currently back to her baseline at 254. Magnesium level normal. Lipid panel at goal. Creatinine stable. Continue with the current dose of cardiac medications without any further changes. Priyanka Romero MAAlisha [place] 659244-03-11 10:45:00 Images from the original note were not included. Venipuncture collection performed by clean technique on the left forearm(s). Total of 1 attempts were made. Slight pressure and a bandage/dressing were applied to the site(s). The patient experienced no complications. The following specimens were processed according to instructions and sent to [facility] laboratories per lab order on [...] Urine Culture 1 Aptima tube Other urine [place] 659244-03-11 08:34:46 Attempted to reschedule pt missed post transplant appt. No answer LVM 06/08/23 [facility] - Ibagch2310-56-07 15:03:25 Evelia Casas is a 58 year old female Patient calling to schedule appt with transplant, states she missed her appt due to being sick. Please advise [phone] (home) ERADICATOR Tsering RouseAultman HospitalFdozih8015-72-22 15:39:41 Images from the original note were [...] problems. Patient to send BP log per DivX. Will forward encounter to Dr. Guevara ERADICATOR Heather Cardona [facility]Pqzhxp5817-99-71 16:11:45 Sent this message to scheduling. LLE Arcos FirstHealthIdsgnc8065-63-07 16:07:01 Evelia Casas is a 58 year old female Pt's is requesting to a earlier appt on 05/07/23. Please advise Alanna DhillonFormerly [facility] CenterQjpvsa9961-10-01 10:30:00 Images from the original note were not included. Venipuncture collection performed by clean technique on the right anticubitus. Total of 1 attempts were made. Slight pressure and a bandage/dressing were applied to the site(s). The patient experienced no complications. The following specimens were processed according to instructions and sent to [facility] laboratories per lab order on 04/22/2023 : LT BLUE 1 SST 2 RED LAV 3 PPT DK GREEN (LiHep) DK GREEN (SodH) REDMOND DK BLUE (K2) DK BLUE (S) ACD Blood Culture NIPT/NTD Patient has been identified by and was provided with cup, antiseptic towelette, and clean catch instructions. 2 urine specimen(s) sent. Unpreserved 2 Urine Culture Aptima tube Other urine [place] 176104-01-24 10:30:00 Elevated NT-proBNP noted at 855 compared [...] blood pressure log. Orders for labs placed. [place] 176104-01-24 10:30:00 Addended by: GRIFFIN GUEVARA on: 04/27/2023 07:47 PM Modules accepted: Orders [facility]2024-01-11 10:57:38 2nd attempt -- Left vmm for a return call. Patient needing f/u appt w/ kidney txpl team with labs prior to appointment. Daya [id number] ERADICATOR Daya Rodriguez [facility]2024-01-10 15:08:15 Patient has been scheduled at the clinic. ZR ERADICATOR Modesto RobersonAultman HospitalJovlus5784-36-71 13:27:45 Called pt no answer left voicemail in regards to scheduling a Hospital f/u appt. ERADICATOR Genny HaydenAultman HospitalLaqrij8400-61-92 12:42:08 Left vmm for a return call. Patient needing to reschedule f/u appt w/ kidney txpl team with labs prior to appointment. Daya [id number] ERADICATOR Daya Rodriguez [facility]2024-01-10 10:30:38 Appt rescheduling requested ERADICATOR Radha Rae FirstHealthWtepnu8013-00-03 09:23:18 I was present with the resident at the time of this encounter on 04/08/23. I discussed the case with Yahaira Bryan, ThomD (PGY1 S[employer] Leather Cutting Machine Operator) and agree to sign off on patient due to multiple unsuccessful attempts to reach the patient. Angelika Bryan PharmD, [facility] Pharmacy Clinical C Java Developer- Endocrinology ERADICATOR Angelika Bryan [facility]2024-01-10 08:37:40 Evelia Casas is a 58 year old female pt is calling stating she cannot make it to her appt tomorrow, 04/09. Pt is asking if she can come in on Thursday, 04/13. Please advise LLE Mejia [facility] HospitalOzivjd0734-11-48 08:10:57 CLINICAL PHARMACY ENDOCRINOLOGY VISIT Evelia Casas [...] required in the future. Thank you. Yahaira Bryan, Karime PGY1 S[employer] Le[employer] Cutting Machine Operator LLE Bryan [facility]2024-01-09 08:56:57 CLINICAL PHARMACY ENDOCRINOLOGY VISIT- 04/07/23 Evelia [...] try again tomorrow. Yahaira Bryan, Karime PGY1 S[employer] Le[employer] Cutting Machine Operator ERADICATOR Yahaira Bryan 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 DX E11.65 01/21/23 Mehrdad Jimenez AGPCNP cyanocobalamin 1,000 mcg/mL injection inject 1 mL [...] DAY NEEDED FOR PAIN. 08/08/22 Doctor Unassigned, [place] Insulin Maurepas, Disposable, (NOVOFINE 32) 32 gauge x 1/4" Ndle Use as directed to inject insulin, 09/23/22 Mehrdad Jimenez AGPCNP methocarbamoL 500 mg tablet Take 1 tablet by mouth 4 (four) times daily. 07/16/22 Doctor Unassigned, [place] mycophenolate 250 mg capsule Take 1 capsule [...] propionate 50 mcg/actuation nasal spray Use 1 [place] in each nostril in the morning and 1 [place] in the evening. 08/11/22 Antonette Quarles MD polyethylene glycol 3350 (CLEARLAX) 17 gram/dose powder Take 17 g by mouth in the morning and 17 g in the evening. Patient taking differently: Take 17 g by mouth in the morning and 17 g in the evening. As needed 08/11/22 Antonette Quarles MD biotin 1 mg Cap Take 1 capsule by mouth daily. Doctor Unassigned, [place] MULTIVITAMIN ORAL Take 1 tablet by mouth in the morning. Doctor Unassigned, [place] Magnesium Oxide-Mg AA Chelate (RJ-OQPZ-SGFQVDG) 133 mg Tab tablet Take 1 tablet [...] 3,000 mg by mouth daily. Doctor Unassigned, [place] Allergies/ADR: Allergies Allergen Reactions Adhesive Tape Rash [...] 1105 12/23/22 1106 HGBA1C 9.5* 10.8* -- ERMHMAX6Q -- -- 10.3* Assessment: 1. DIABETES Patient [...] Value 08/07/2022 43 mg/dL 01/27/2013 111 MG/DL BOL-UOGVYSOYNJS-M (mg/dL (calc)) Date Value 12/06/2015 123 Plan/Recommendations: Repeat labs Future Appointments Provider Department Dept Phone 04/09/2023 10:00 AM Vtc-Lab [facility], [facility] [phone] 04/09/2023 11:00 AM Grupo Crouch MD [facility] Health Transplant Services, [facility] [phone] 04/14/2023 10:00 AM Denise Duke MD [facility] [phone] 05/07/2023 9:00 AM Ita Cai DO [facility], [facility] [phone] 06/08/2023 9:30 AM Justina Melendez NP [facility] [phone] 08/03/2023 11:30 AM Griffin [facility] [phone] Time spent with patient/caregiver: Yahaira Bryan, PharmD PGY1 S[employer] Le[employer] Cutting Machine Operator Yahaira Bryan [facility]2024-01-02 15:07:36 This is not a [facility] IM pt. Looks to be a family medicine pt. [facility]2024-01-02 10:13:53 Attempted to contact this patient no answer and unable to leave a vm. ZR [facility]2024-01-01 16:42:14 Summary: Hospital follow up appointment Patient would like assistance with scheduling for HFU. Next available appointment with Justina Melendez NP is not until Mid May. Would like to be worked in for sooner. Machelle MeraBerger HospitalMedqkz4807-42-63 18:14:14 Problem: Discharge Planning Goal: Adequate for [...] output Outcome: Adequate for discharge LLE Armendariz RNAultman HospitalVzzwdk4136-88-75 20:00:00 Problem: Discharge Planning Goal: Adequate for [...] output Outcome: Progressing as expected LLE Dhaliwal RNAultman HospitalWugfcj2349-07-21 09:17:11 Attempted to contact patient to schedule f/u appointment for refills. Patient did not answer. LVM to RC. Encounter Closed. LLE MayesAultman HospitalEqjfvt0827-98-14 10:30:40 Last OV 03/03/2023 No scheduled F/U appt Continue Synthroid 50 mcg daily. LLE Grey MAAlisha [place] 659243-11-29 12:27:55 Pt stated she is not taking cyclobenazeprine, pt is requesting to speak to nurse in regards to medication refills. [facility]2023-10-23 13:36:24 I was present with the resident at the time of this encounter on 01/19/2023. I discussed the case with Francheska Villa PharmD (PGY1 S[employer] Leather Cutting Machine Operator) and agree with the assessment and plan. I have reviewed the progress note and I agree with the note as written. Angelika Bryan PharmD, [facility] Pharmacy Clinical C Java Developer- Endocrinology [facility] - Xpzdsv5213-61-01 06:51:48 Images from the original note were [...] in the early mornings. Patient reports having bearingizer breakfast meals and skips lunch. 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 08/08/22 Doctor Unassigned, [place] Insulin [place], Disposable, (NOVOFINE 32) 32 gauge x 1/4" Ndle Use as directed to inject insulin, 09/23/22 Mehrdad Jimenez AGPCNP methocarbamoL 500 mg tablet Take 1 tablet by mouth 4 (four) times daily. 07/16/22 Doctor Unassigned, [place] mycophenolate 250 mg capsule Take 1 capsule [...] propionate 50 mcg/actuation nasal spray Use 1 [place] in each nostril in the morning and 1 [place] in the evening. 08/11/22 Antonette Quarles MD [...] 1 capsule by mouth daily. Doctor Unassigned, [place] MULTIVITAMIN ORAL Take by mouth. Doctor Unassigned, [place] Magnesium Oxide-Mg AA Chelate (LS-SYAG-LAPMVPO) 133 mg Tab tablet Take 1 tablet [...] 3,000 mg by mouth daily. Doctor Unassigned, [place] Allergies/ADR: Allergies Allergen Reactions Adhesive Tape Rash [...] Phone 03/03/2023 10:30 AM Jess Doan MD [facility], [facility] [phone] Time spent with patient/caregiver: 30 minutes Francheska Villa, Pharm.D. PGY1 Sole Leather Cutting Machine Operator Francheska Villa [facility]2023-08-21 15:51:06 Refill for albuterol rescue inhaler TAMMY 08/21/22 Evelia Casas is a 57 year old female with: ICD-10-CM 1. Dyspnea on exertion R06.09 Plan: Dyspnea is likely multifactorial however there may be a reactive airway disease component. We will continue with albuterol Refill sent to [facility] Pharmacy [place], [place] - [address] [place] [address] AT [address] Candy Dorantes FirstHealthYducqk8283-14-45 15:50:[address] new lab orders. [facility] HospitalTckjtc1061-41-44 12:08:27 3rd attempt to contact patient, no answer, left detailed voicemail to contact office. Remoovt message sent as well. Encounter closed due to inability to contact patient. STEPHANIE ROD RN 11/04/2022 12:11 PM Stephanie Rod [place] 80569-08-03 16:35:33 2nd attempt to contact patient. Not able to LVM. [place] 46102-08-03 14:49:46 Attempted to contact patient via phone provided and the voicemail is full, unable to leave message.Will attempt at a later time. STEPHANIE ROD RN 10/30/2022 2:50 PM [place] 46102-08-03 14:41:09 Per pt BS was 314 at 10 am with keytones and last BS reading at 1 pm is 197. And pt states BP is very low of 112/85 and is feeling light headed. Pt would like to speak to nurse. Danyell AguilarBecky [place] 46102-07-30 16:48:12 NOV: 12/17/22 TAMMY: 09/23/22 Refill sent [place] 46102-07-28 13:44:41 TAMMY 6.14.23 Recent Labs 08/07/22 2248 CHOL 132 LDL 43 HDL 55 TRIG 168 Refill sent per C51 guidelines to [facility] [place] [place] [facility] [address] Attempted to contact patient, voicemail full, unable to LVM. Mychart message sent. Stephanie Rod [place] 574643-07-27 18:51:09 Called pt no ans, unble to lvm due to full mb Jeana Tinsley MA 10/23/2022 6:51 PM Jeana Tinsley [place] 407783-07-26 08:08:42 You Just now (8:07 AM) JG Attempted to contact pt, no answer ULVM. Pt was sent atorvastatin 07/2022 dispensed 90 pills with 3 refills. Pt should have rx at pharmacy. Will close this encounter as I is being taken care of in another open encounter. Brigid Brooke [place] 407783-07-26 08:07:16 Attempted to contact pt, no answer ULVM. Pt was sent atorvastatin 07/2022 dispensed 90 pills with 3 refills. Pt should have rx at pharmacy. Brigid Brooke [place] 407783-07-25 13:42:11 Per pt never got her refill that was sent to [facility] pharmacy please re-send to [facility]. [place] 659243-07-24 12:50:46 Pt calling regarding refill request denial and would like to speak with a nurse because she said itisn't to early for her to get a refill. Sujata QuintanaAlisha [place] 659243-06-27 13:30:00Addended by: MEHRDAD DUKE on: 09/23/2022 02:47 PM Modules accepted: Orders [facility] HospitalOmjtle8149-82-54 21:41:20* Radiation Dose CTDIVOL = 0 (mGy): DLP = 400.3 (mGy-cm) [...] malignancy. Jose Og MD On 02/15/2020 22:12:55; MARIANA-[id number] [facility] HospitalNfviewj9729-04-18 16:56:28* PROCEDURE INFORMATION: Exam: XR Chest, 1 View Exam date [...] findings. Alonzo Zaman MD On 02/15/2020 17:13:09; [id number] [facility]
[2024-07-12] MEDS ORDERED: NA CHLORIDE 0.9% 1,000 ML ONE (12:46)
--- NOTE | 2024-07-12 12:48 | RAD REPORT ---
EXAMINATION: ONE VIEW CHEST XR CLINICAL INDICATION: CHEST PAIN TECHNIQUE: Frontal chest projection is submitted. Examination is limited by patient positioning and t echnique. COMPARISON: 07/05/2024 FINDINGS: The lungs are well inflated and clear. The heart is upper limit of normal in size. No displaced fract ures identified. Hardware is noted. IMPRESSION: No acute intrathoracic abnormalities.
[2024-07-12 12:56] LABS: Absolute Monocytes 0.5 K/uL (0.1-1.3); Absolute Neutrophil 5.8 K/uL (1.8-8.0); Basophils % 0.2 % (0-1.3); Eosinophils % 0.4 % (0-4.4); Hematocrit 47.7 % (36.0-45.0); Hemoglobin 15.9 g/dL (12.0-15.0); Lymphocytes % 14.1 % (15.3-44.8); MCH 32.7 pg (27.0-35.0); MCHC 33.3 g/dL (32.0-36.0); MPV 8.1 fL (7.6-11.3); Monocytes % 6.2 % (3.3-12.3); Neutrophils % 79.1 % (41.7-73.7); Nucleated Red Blood Cells % 0.1 % (0-0); Platelets 190 thou/uL (152-406); RBC Red Blood Cell Count 4.87 M/uL (3.86-4.86); Red Cell Distribution Width 14.7 % (12.1-15.2)
[2024-07-12 13:01] LABS: PT Prothrombin Time 10.5 SECONDS (10-13.0); Protime INR 0.92
[2024-07-12 13:21] LABS: Albumin 3.8 g/dL (3.4-5.0); Albumin/Globulin Ratio 0.9 (1.1-1.8); Anion Gap 10.9 mEq/L (5.0-15.0); Bilirubin Direct 0.3 mg/dL (0-0.2); Bilirubin Indirect, Calculated 0.6 mg/dL (0.2-0.8); Bilirubin Total 0.9 mg/dL (0.2-1.0); Globulin 4.2 g/dL (2.3-3.5); Magnesium 1.8 mg/dL (1.6-2.4); Potassium 4.9 mEq/L (3.5-5.1); Troponin High Sensitivity 831.9 pg/mL (<58.9)
--- NOTE | 2024-07-12 13:43 | EDPHYS ---
Physician Documentation [facility] Name: Maryann Casas Age: 59 yrs Sex: Female : 1965 Arrival Date: 07/12/2024 Time: 11:41 Bed 20 Private MD: ED Physician Gloria Engel HPI: 07/12 11:47 This 59 yrs old Female presents to ER via Unassigned with complaints of High Blood sp3 Sugar. 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 Blood sugar read "high" for EMS which they state is greater than 700. Patient denies any polyuria, polydipsia, abdominal pain, fever, infection, chest pain, shortness of breath, back pain, syncope, near syncope, or any other signs or symptoms on ROS at this time.. Historical: - Allergies: 11:49 Iodinated Contrast Media - IV Dye; me1 11:49 Morphine; me1 11:49 Tape; me1 - PMHx: 11:49 CVA; Hypertension; resolved; Diabetes - IDDM; resolved; Renal Disease; resolved; me1 Myocardial infarction; - PSHx: 11:49 Coronary Angioplasty; Transplantation of pancreas; Transplant of kidney; me1 - Immunization history:: Adult Immunizations up to date. - Infectious Disease History:: Denies. - Social history:: Smoking status: Patient denies any tobacco usage or history of. ROS: 11:48 Constitutional: Negative for fever, chills, and weight loss, Eyes: Negative for injury, sp3 pain, redness, and discharge, ENT: Negative for injury, pain, and discharge, Neck: Negative for injury, pain, and swelling, Cardiovascular: Negative for chest pain, palpitations, and edema, Respiratory: Negative for shortness of breath, cough, wheezing, and pleuritic chest pain, Abdomen/GI: Negative for abdominal pain, nausea, vomiting, diarrhea, and constipation, Back: Negative for injury and pain, MS/Extremity: Negative for injury and deformity, Skin: Negative for injury, rash, and discoloration, Neuro: Negative for headache, weakness, numbness, tingling, and seizure, Psych: Negative for depression, anxiety, suicide ideation, homicidal ideation, and hallucinations, Allergy/Immunology: Negative for hives, rash, and allergies, Hematologic/Lymphatic: Negative for swollen nodes, abnormal bleeding, and unusual bruising, 11:48 All other systems are negative, Exam: 11:48 Constitutional: This is a well developed, well nourished patient who is awake, alert, sp3 and in no acute distress. Head/Face: Normocephalic, atraumatic. Eyes: Pupils equal round and reactive to light, extra-ocular motions intact. Lids and lashes normal. Conjunctiva and sclera are non-icteric and not injected. Cornea within normal limits. Periorbital areas with no swelling, redness, or edema. Neck: Trachea midline, no thyromegaly or masses palpated, and no cervical lymphadenopathy. Supple, full range of motion without nuchal rigidity, or vertebral point tenderness. No Meningismus. Chest/axilla: Normal chest wall appearance and motion. Nontender with no deformity. No lesions are appreciated. Cardiovascular: Regular rate and rhythm with a normal S1 and S2. No gallops, murmurs, or rubs. Normal PMI, no JVD. No pulse deficits. Respiratory: Lungs have equal breath sounds bilaterally, clear to auscultation and percussion. No rales, rhonchi or wheezes noted. No increased work of breathing, no retractions or nasal flaring. Abdomen/GI: Soft, non-tender, with normal bowel sounds. No distension or tympany. No guarding or rebound. No evidence of tenderness throughout. Back: No spinal tenderness. No costovertebral tenderness. Full range of motion. Skin: Warm, dry with normal turgor. Normal color with no rashes, no lesions, and no evidence of cellulitis. MS/ Extremity: Pulses equal, no cyanosis. Neurovascular intact. Full, normal range of motion. Neuro: Awake and alert, GCS 15, oriented to person, place, time, and situation. Cranial nerves II-XII grossly intact. Motor strength 5/5 in all extremities. Sensory grossly intact. Cerebellar exam normal. Normal gait. Psych: Awake, alert, with orientation to person, place and time. Behavior, mood, and affect are within normal limits. 15:02 ECG was reviewed by the Attending Physician. EKG demonstrates normal sinus rhythm at 67 sp3 bpm with normal intervals, normal QRS, leftward axis and nonspecific ST/T changes without evidence of acute ischemia. Vital Signs: 11:42 BP 121 / 55; Pulse 72; Resp 16; Temp 98.2; Pulse Ox 100% ; Weight 58.97 kg; Height 4 me1 ft. 8 in. ; Pain 0/10; 13:00 BP 123 / 64; Pulse 76; Resp 19; Pulse Ox 100% ; me1 14:00 BP 121 / 62; Pulse 72; Resp 18; Pulse Ox 100% ; me1 15:00 BP 119 / 68; Pulse 78; Resp 14; Pulse Ox 100% ; me1 16:00 BP 125 / 66; Pulse 76; Resp 21; Temp 98.3; Pulse Ox 100% ; me1 11:42 Body Mass Index 29.15 (58.97 kg, 142.24 cm) me1 11:42 Pain Scale: Adult me1 MDM: 11:46 Medical Screening Exam initiated sp3 11:49 Data reviewed: vital signs, nurses notes, old medical records, lab test result(s), sp3 radiologic studies. ED course: 59-year-old female with PMH above with type 1 diabetes given failed pancreas transplant as her counseling services director are classifying, status post STEMI, now with hyperglycemia episode. Will assess level of hyperglycemia and any potential acidosis and electrolytes. Differential diagnosis includes hyperglycemia versus early DKA versus dehydration versus other process. Workup will include EKG, chest x-ray and full labs. Normal saline 1 L IV ordered. Further insulin as indicated. Disposition pending workup and patient course. Patient sees Dr. Doan for her PCP.. 14:55 ED course: . 07/12 11:47 Order name: Basic Metabolic Panel; Complete Time: 13:26 sp3 07/12 11:47 Order name: CBC with Diff; Complete Time: 13: sp3 07/12 11:47 Order name: LFT's; Complete Time: 13: sp3 07/12 11:47 Order name: Magnesium; Complete Time: 13: sp3 07/12 11:47 Order name: NT PRO-BNP; Complete Time: 13:26 sp3 07/12 11:47 Order name: PT-INR; Complete Time: 13: sp3 07/12 11:47 Order name: Troponin HS; Complete Time: 13:26 sp3 07/12 11:47 Order name: Lactate w/ 2H reflex if indic.; Complete Time: 13:26 sp3 07/12 12:22 Order name: Glucose, Ancillary Testing; Complete Time: 12:50 EDMS 07/12 14:26 Order name: COVID-19 Ag + Flu A+B Ag; Complete Time: 15:15 sp3 07/12 15:29 Order name: Glucose, Ancillary Testing; Complete Time: 15:31 EDMS 07/12 11:47 Order name: XRAY Chest (1 view); Complete Time: 12:50 sp3 07/12 11:47 Order name: Cardiac monitoring; Complete Time: 12:56 sp3 07/12 11:47 Order name: EKG - Nurse/Tech; Complete Time: 12:56 sp3 07/12 11:47 Order name: IV Saline Lock; Complete Time: 12:56 sp3 07/12 11:47 Order name: Labs collected and sent; Complete Time: 12:56 sp3 07/12 11:47 Order name: O2 Per Protocol; Complete Time: 12:56 sp3 07/12 11:47 Order name: O2 Sat Monitoring; Complete Time: 12:56 sp3 07/12 11:47 Order name: Accucheck; Complete Time: 12:10 sp3 Administered Medications: 12:47 Drug: NS 0.9% IV 1000 ml IV at 1000 ml once; to be given as a bolus over 60 minutes me1 Route: IV; Rate: 1000 ml; Site: right forearm; 15:14 Follow up: Response: No adverse reaction; IV Status: Completed infusion; IV Intake: me1 1000ml 13:53 Drug: Insulin Regular Human IVP 10 units IVP once {Co-Signature: iw (Naya Aj me1 RN).} Route: IVP; Site: right forearm; 14:28 Follow up: Response: No adverse reaction me1 15:39 Drug: Ondansetron IVP 4 mg IVP once; over 2 minutes Route: IVP; Site: right forearm; me1 15:39 Follow up: Response: No adverse reaction me1 16:29 Drug: Ondansetron IVP 4 mg IVP once; over 2 minutes Route: IVP; Site: right forearm; me1 16:29 Follow up: Response: No adverse reaction me1 Disposition Summary: 07/12/24 13:42 Transfer Ordered Notes: Transfer Location: [facility] sp3 Reason: Higher level of care sp3 Condition: Stable sp3 Problem: an acute exacerbation sp3 Symptoms: have worsened sp3 Accepting Physician: DAVI(07/12/24 16:31) me1 Diagnosis - Hyperglycemia, elevated troponin from recent STEMI, CHF sp3 Forms: - Medication Reconciliation Form sp3 - SBAR form sp3 Signatures: Dispatcher [employer] EDMS Gloria Engel MD MD sp3 Oksana Reyes RN RN me1 Naya Aj RN iw Corrections: (The following items were deleted from the chart) 11:47 11:47 BASIC METABOLIC PANEL+C.LAB.BRZ ordered. EDMS EDMS 11:47 11:47 CBC+H.LAB.BRZ ordered. EDMS EDMS 11:47 11:47 HEPATIC FUNCTION+C.LAB.BRZ ordered. EDMS EDMS 11:47 11:47 MAGNESIUM+C.LAB.BRZ ordered. EDMS EDMS 11:47 11:47 PROBNP+C.LAB.BRZ ordered. EDMS EDMS 11:47 11:47 PROTIME (+INR)+COAG.LAB.BRZ ordered. EDMS EDMS 11:47 11:47 Troponin High Sensitivity+C.LAB.BRZ ordered. EDMS EDMS 11:47 11:47 LACTATE+C.LAB.BRZ ordered. EDMS EDMS 11:47 11:47 Chest Single View+RAD.RAD.BRZ ordered. EDMS EDMS 16:31 13:42 TBD sp3 me1
--- NOTE | 2024-07-12 13:43 | ER ---
Nurse's Notes [facility] Name: Maryann Casas Age: 59 yrs Sex: Female : 1965 Arrival Date: 07/12/2024 Time: 11:41 Bed 20 Private MD: Diagnosis: Hyperglycemia, elevated troponin from recent STEMI, CHF Presentation: 07/12 11:42 Chief complaint: EMS states: toned out for high blood sugar. Patient was released from [address] yesterday for a STEMI on 07/05/24 and was kept in the hospital for uncontrolled blood sugar. Patient took her blood sugar at 08:30 per her usual and at 10:45 blood sugar was 576. EMS took blood sugar at 10:56 and their glucometer read "HI" (meter reads to 750). Patient has no complaints. Coronavirus screen: Vaccine status: Patient reports being unvaccinated. Ebola Screen: No symptoms or risks identified at this time. Initial Sepsis Screen: Does the patient meet any 2 criteria? No. Patient's initial sepsis screen is negative. Does the patient have a suspected source of infection? No. Patient's initial sepsis screen is negative. Risk Assessment: Do you want to hurt yourself or someone else? Patient reports no desire to harm self or others. Onset of symptoms is unknown. 11:42 Method Of Arrival: EMS: [place] [id number] 11:42 Acuity: [facility] 3 [facility] Triage Assessment: 11:49 General: Appears in no apparent distress. well groomed, well developed, well nourished, [facility] Behavior is calm, cooperative, appropriate for age. Pain: Denies pain. EENT: No signs and/or symptoms were reported regarding the EENT system. Neuro: Level of Consciousness is awake, alert, obeys commands, Oriented to person, place, time, situation, Appropriate for age. Cardiovascular: Patient's skin is warm and dry. Respiratory: Airway is patent Respiratory effort is even, unlabored, Respiratory pattern is regular, symmetrical. GI: No signs and/or symptoms were reported involving the gastrointestinal system. : No signs and/or symptoms were reported regarding the genitourinary system. Derm: Skin is intact, is healthy with good turgor, Skin is pink, warm \\T\\ dry. Musculoskeletal: No signs and/or symptoms reported regarding the musculoskeletal system. Historical: - Allergies: 11:49 Iodinated Contrast Media - IV Dye; me1 11:49 Morphine; me1 11:49 Tape; me1 - PMHx: 11:49 CVA; Hypertension; resolved; Diabetes - IDDM; resolved; Renal Disease; resolved; me1 Myocardial infarction; - PSHx: 11:49 Coronary Angioplasty; Transplantation of pancreas; Transplant of kidney; me1 - Immunization history:: Adult Immunizations up to date. - Infectious Disease History:: Denies. - Social history:: Smoking status: Patient denies any tobacco usage or history of. Screenin:53 [facility] ED Fall Risk Assessment (Adult) History of falling in the last 3 months, me1 including since admission No falls in past 3 months (0 pts) Confusion or Disorientation No (0 pts) Intoxicated or Sedated No (0 pts) Impaired Gait No (0 pts) Mobility Assist Device Used No (0 pt) Altered Elimination No (0 pt) Score/Fall Risk Level 0 - 2 = Low Risk Maintained a safe environment, Provided non-skid footwear, Hourly rounding (assess needs \\T\\ fall precautionary measures) done. Abuse screen: Denies threats or abuse. Nutritional screening: No deficits noted. Tuberculosis screening: No symptoms or risk factors identified. Assessment: 11:53 General: See triage assessment. me1 Vital Signs: 11:42 BP 121 / 55; Pulse 72; Resp 16; Temp 98.2; Pulse Ox 100% ; Weight 58.97 kg; Height 4 me1 ft. 8 in. ; Pain 0/10; 13:00 BP 123 / 64; Pulse 76; Resp 19; Pulse Ox 100% ; me1 14:00 BP 121 / 62; Pulse 72; Resp 18; Pulse Ox 100% ; me1 15:00 BP 119 / 68; Pulse 78; Resp 14; Pulse Ox 100% ; me1 16:00 BP 125 / 66; Pulse 76; Resp 21; Temp 98.3; Pulse Ox 100% ; me1 11:42 Body Mass Index 29.15 (58.97 kg, 142.24 cm) me1 11:42 Pain Scale: Adult me1 ED Course: 11:42 Patient arrived in ED. me1 11:42 Gloria Engel MD is Attending Physician. sp3 11:49 Triage completed. me1 11:49 Arm band placed on Patient placed in an exam room. me1 11:53 Patient has correct armband on for positive identification. Bed in low position. Call me1 light in reach. Side rails up X2. Provided Education on: POC. Verbalized understanding.. Client placed on continuous cardiac and pulse oximetry monitoring. NIBP monitoring applied. radiation monitor on. Pulse ox on. NIBP on. 11:53 No provider procedures requiring assistance completed. me1 11:54 Oksana Reyes, RN is Primary Nurse. me1 12:00 Inserted Accessed peripheral vein via ultrasound, utilizing dynamic ultrasound me1 technique using 20G Nexia IV catheter ,sterile technique. 12:44 XRAY Chest (1 view) In Process Unspecified. EDMS 12:56 CBC with Diff Sent. me1 12:56 Basic Metabolic Panel Sent. me1 12:56 LFT's Sent. me1 12:56 Magnesium Sent. me1 12:56 NT PRO-BNP Sent. me1 12:56 PT-INR Sent. me1 12:56 Troponin HS Sent. me1 12:56 Lactate w/ 2H reflex if indic. Sent. me1 14:09 initiated transfer to [facility]. bd 14:34 Initial lab(s) drawn, by me, sent to lab. EKG done, by ED staff, reviewed by Gloria Engel MD COVID swab sent to lab. 15:49 Patient transferred, IV remains in place. me1 16:02 pt accepted in transfer to [facility] heart failure ICU by dr Coughlin, admin approval bd given by Corrine Clark rn. Administered Medications: 12:47 Drug: NS 0.9% IV 1000 ml IV at 1000 ml once; to be given as a bolus over 60 minutes me1 Route: IV; Rate: 1000 ml; Site: right forearm; 15:14 Follow up: Response: No adverse reaction; IV Status: Completed infusion; IV Intake: me1 1000ml 13:53 Drug: Insulin Regular Human IVP 10 units IVP once {Co-Signature: iw (Naya Aj RN).} Route: IVP; Site: right forearm; 14:28 Follow up: Response: No adverse reaction me1 15:39 Drug: Ondansetron IVP 4 mg IVP once; over 2 minutes Route: IVP; Site: right forearm; me1 15:39 Follow up: Response: No adverse reaction me1 16:29 Drug: Ondansetron IVP 4 mg IVP once; over 2 minutes Route: IVP; Site: right forearm; me1 16:29 Follow up: Response: No adverse reaction me1 Medication: 11:53 VIS not applicable for this client. me1 Intake: 15:14 IV: 1000ml; Total: 1000ml. me1 Outcome: 13:42 ER care complete, transfer ordered by sp3 15:49 Transferred to [facility], Note: Report given to GAGANDEEP Jackson me1 15:49 Condition: stable 15:49 Instructed on the need for transfer, 16:31 Patient left the ED. me1 Signatures: Dispatcher [employer] EDMarry Tomas Setul, MD MD sp3 Okasna Reyes RN RN me1 Naya Aj RN iw
[2024-07-12] MEDS ORDERED: INSULIN REGULAR (HUMAN) 100 UNIT/ML ONE (13:48)
[2024-07-12 15:12] LABS: Influenza A Ag Negative; Influenza B Ag Negative; SARS-CoV-2 Antigen Rapid Res Negative (Negative)
[2024-07-12] MEDS ORDERED: ONDANSETRON 4 MG/2 ML VIAL ONE ×2 (15:30→16:27)
[2024-07-12 17:31] VITALS: O2SAT 100
[2024-07-12 17:36] VITALS: BP 125/66; TEMP 98.3
== END 2024-07-12 16:31 | disposition short-term general hospital (02) ==
LOC: ER 11:41
DX: E11.65 Type 2 diabetes mellitus with hyperglycemia (principal); R79.89 Other specified abnormal findings of blood chemistry; I50.9 Heart failure, unspecified; I10 Essential (primary) hypertension; Z94.0 Kidney transplant status; Z94.83 Pancreas transplant status; Z11.52 Encounter for screening for COVID-19
CPT/HCPCS: 93005; 85025; 80048; 36415; 83735; 85610; 82947 ×2; 80076; 83605; 84484; 83880; 71045; 87428; J2405 ×2; J1815; J7030